=== PATIENT | male | born 1930 | race Caucasian/White ===

== ENCOUNTER 2016-05-21 22:47 | Inpatient (IN) | payer MEDICARE, MEDICAID ==
[2016-05-21 22:47] VITALS: PULSE 58; BMI 23.6
[2016-05-21] MEDS ORDERED: Sodium Chloride 0.9% 2,000 ML IV ONE (23:29)
--- NOTE | 2016-05-21 23:42 | C.PDOC ---
History Of Present Illness Patient is an 85 year old male who presents to the ER with a possible GI bleed. Patient's family states they found red stool and dismissed it as a result of drinking beet juice, fci then found him weak, tachycardic, hypotensive , and pale. The patient's family reports he was admitted to the hospital last month for pneumonia. Denies any nausea, vomiting, or diarrhea. Time Seen by Provider: 05/21/16 23:29 Chief Complaint (Nursing): GI Problem History Per: Family History/Exam Limitations: no limitations Onset/Duration Of Symptoms: Hrs Current Symptoms Are (Timing): Still Present Associated Symptoms: Melena Past Medical History Reviewed: Historical Data, Nursing Documentation, Vital Signs Vital Signs: Last Vital Signs Temp 99.7 F H 05/21/16 23:54 Pulse 130 H 05/21/16 23:05 Resp 24 05/21/16 23:05 BP 75/36 L 05/21/16 23:05 Pulse Ox 99 05/22/16 00:36 - Medical History PMH: Anemia, Benign Prostatic Hyperplasia, CAD, Cardia Arrhythmia, CHF, HTN, Hypercholesterolemia, Peripheral Edema, Pneumonia, Chronic Kidney Disease Surgical History: Appendectomy, CABG - [facility] Procedures INSPECTION OF UPPER INTESTINAL TRACT, ENDO (04/11/15) TRANSFUSE NONAUT RED BLOOD CELLS IN PERIPH VEIN, PERC (04/11/15) Family History: States: Unknown Family Hx - Social History Hx Tobacco Use: No Hx Alcohol Use: No Hx Substance Use: No - Immunization History Hx Tetanus Toxoid Vaccination: Yes Hx Influenza Vaccination: Yes Hx Pneumococcal Vaccination: Yes Review Of Systems Except As Marked, All Systems Reviewed And Found Negative. Constitutional: Negative for: Fever, Chills Cardiovascular: Positive for: Other (Tachycardic) Respiratory: Positive for: Cough Gastrointestinal: Positive for: Abdominal Pain, Melena. Negative for: Nausea, Vomiting, Diarrhea Physical Exam - Physical Exam Appears: Non-toxic Skin: Dry, Pale Eye(s): bilateral: Conjunctiva Pale, Other (Sunken eyes) Tongue: Other (Dry) Cardiovascular: Other (Tachycardiac) Respiratory: Rhonchi (Course bilaterally), Other (Cough) Gastrointestinal/Abdominal: Soft, Tenderness (diffuse), No Distention, No Guarding, No Rebound Rectal: Heme Positive, Melena (Jelly like texture) Extremity: Normal ROM, No Tenderness Neurological/Psych: Oriented x3, Normal Speech, Normal Cognition ED Course And Treatment - Laboratory Results Result Diagrams: 05/21/16 23:55 05/21/16 23:55 Lab Interpretation: Abnormal (WBC 15.6 with left shift. K+ 5.8, Lactate 2.7, stool guaiac +) ECG: Interpreted By Me ECG Rhythm: Sinus Tachycardia, R BBB ECG Interpretation: Abnormal O2 Sat by Pulse Oximetry: 99 Pulse Ox Interpretation: Normal - Radiology CXR: Interpreted by Me CXR Interpretation: Yes: Infiltrates (bilateral similar to CXR from last month) Progress Note: Blood work, EKG, chest x-ray, urine culture, urinalysis, and blood culture. IV fluids were administered. Reevaluation Time: 00:44 Reassessment Condition: Improved (BP now 106/54, HR 90) - Physician Consult Information Outcome Of Conversation: Case discussed with Dr Rigoberto Choi. Patient to be admitted to ICU for GI bleed with hypotension. Disposition - Disposition Disposition: HOSPITALIZED Disposition Time: 00:46 Condition: GUARDED - POA Present On Arrival: None - Clinical Impression Clinical Impression: Gastrointestinal hemorrhage, Hypovolemic shock - Scribe Statement The provider has reviewed the documentation as recorded by the Scribe Jac Okeefe All medical record entries made by the Scribe were at my direction and personally dictated by me. I have reviewed the chart and agree that the record accurately reflects my personal performance of the history, physical exam, medical decision making, and the department course for this patient. I have also personally directed, reviewed, and agree with the discharge instructions and disposition.
[2016-05-21 23:50] LABS: VENOUS BLOOD GAS PCO2 42 mmHg (40-60); VENOUS BLOOD PH 7.34 (7.32-7.43)
[2016-05-22 00:05] LABS: BASO % 0.1 % (0.0-2.0); EOS % 0.1 % (0.0-4.0); HEMATOCRIT 28.2 % (35.0-51.0); LYMPH # 0.9 K/uL (1.0-4.3); LYMPH % 5.6 % (20.0-40.0); MEAN CELL VOLUME 82.6 fL (80.0-94.0); MEAN CORPUSCULAR HEMOGLOBIN 26.2 pg (27.0-31.0); MEAN CORPUSCULAR HGB CONC 31.7 g/dL (33.0-37.0); MEAN PLATELET VOLUME 9.3 fL (7.2-11.7); MONO # 0.7 K/uL (0.0-0.8); MONO % 4.7 % (0.0-10.0); PLATELET COUNT 207 K/uL (130-400); RED CELL DISTRIBUTION WIDTH 18.4 % (11.5-14.5); WHITE BLOOD COUNT 15.6 K/uL (4.8-10.8)
[2016-05-22 00:18] LABS: POTASSIUM 5.8 mmol/L (3.6-5.2)
[2016-05-22 00:20] LABS: BILIRUBIN,TOTAL 0.4 mg/dL (0.2-1.3)
[2016-05-22 00:21] LABS: ALB/GLOB RATIO 0.8 (1.0-2.1); CALCIUM 8.6 mg/dl (8.6-10.4); MAGNESIUM 2.6 mg/dL (1.6-2.3); PHOSPHOROUS 4.8 mg/dL (2.5-4.5); TOTAL PROTEIN 5.9 g/dL (6.3-8.3)
[2016-05-22] MEDS ORDERED: Sodium Chloride 0.9% 1,000 ML IV ONE (00:30)
[2016-05-22 00:33] LABS: TROPONIN I 0.059 ng/mL (0.00-0.120)
--- NOTE | 2016-05-22 02:56 | CP.PCM.CON ---
History of Present Illness - History of Present Illness History of Present Illness: Chief complaint: GA bleed History present illness: 85-year-old male with history of hypertension CAD, status post coronary artery bypass grafting BPH anemia hypertension hypercholesterolemia peripheral edema chronic renal insufficiency peripheral vascular disease sent from senior care because of the increasing weakness lethargic tachypnea and hypotension. Patient was also found to have a pain looking mucosa and tiredness, extremely weak and associated with the sacral decubiti Past medical history as noted in the chart. Surgical history coronary artery disease surgery endoscopy Family history noncontributory Allergies: No known drug allergy Personal history: Used to be a smoker in the past currently none Review of system noted from the chart and examination: Vital signs reviewed Currently in the emergency room patient was having hypotension, but the after receiving IV fluids the blood pressure is improving Chest good air entry bilaterally regular heart sound nontender abdomen, extremities edema noted bilaterally [employer] alert awake oriented. Patient is having stage II sacral decubiti Patient's labs reviewed in Elevated BUN/creatinine noted. Also low hemoglobin noted, related proBNP noted Chest x-ray mild congestive changes noted Stool occult blood is positive currently Assessment and recommendation: 85-year-old male with multiple medical problems, chronic hypertension chronic a diabetic complication, coronary artery disease admitted with the hypotension, tachycardia and hypoxia. Currently improving with IV fluids. We'll monitor the H&H, patient may need a blood transfusion. Overall prognosis is poor will follow the patient Past Patient History - Tetanus Immunizations Tetanus Immunization: Unknown - Past Medical History & Family History Past Medical History?: Yes - Past Social History Smoking Status: Never Smoked - CARDIAC Hx Cardiac Disorders: Yes Hx Cardia Arrhythmia: Yes Hx Congestive Heart Failure: Yes Hx Hypercholesterolemia: Yes Hx Hypertension: Yes Hx Peripheral Edema: Yes - PULMONARY Hx Respiratory Disorders: Yes Hx Pneumonia: Yes - NEUROLOGICAL Hx Neurological Disorder: Yes HX Cerebrovascular Accident: Yes - HEENT Hx HEENT Problems: Yes Hx Glaucoma: Yes - RENAL Hx Chronic Kidney Disease: Yes Other/Comment: ckd - ENDOCRINE/METABOLIC Hx Endocrine Disorders: Yes Hx Diabetes Mellitus Type 2: Yes - HEMATOLOGICAL/ONCOLOGICAL Hx Blood Disorders: Yes Hx Anemia: Yes - INTEGUMENTARY Hx Dermatological Problems: No - MUSCULOSKELETAL/RHEUMATOLOGICAL Hx Musculoskeletal Disorders: Yes Hx Falls: Yes - GASTROINTESTINAL Hx Gastrointestinal Disorders: No - GENITOURINARY/GYNECOLOGICAL Hx Genitourinary Disorders: No - PSYCHIATRIC Hx Psychophysiologic Disorder: No Hx Substance Use: No - SURGICAL HISTORY Hx Surgeries: Yes Hx Appendectomy: Yes (2014) Hx Coronary Artery Bypass Graft: Yes (2012) - ANESTHESIA Hx Anesthesia: Yes Hx Anesthesia Reactions: No Hx Malignant Hyperthermia: No Has any member of the family had a problem w/ anesthesia?: No Meds Allergies/Adverse Reactions: Allergies Allergy/AdvReac Type Severity Reaction Status Date / Time No Known Allergies Allergy Unverified 05/21/16 23:21 - Medications Medications: Current Medications Folic Acid (Folic Acid) 1 mg PO DAILY [facility] Home Med (Brinzolamide/Brimonidine Tart [Simbrinza 1%-0.2% Eye Drops]) 1 drop OP BID [facility] Home Med (Travoprost [Travatan Z]) 1 drop OP HS [facility] Sodium Chloride (Sodium Chloride 0.9%) 1,000 mls @ 100 mls/hr IV .Q10H [facility] Pantoprazole Sodium (Protonix Inj) 40 mg IVP Q12H [facility] Tamsulosin HCl (Flomax) 0.4 mg PO DAILY [facility] Results - Vital Signs Recent Vital Signs: Last Vital Signs Temp 98 F 05/22/16 02:51 Pulse 91 H 05/22/16 01:46 Resp 18 05/22/16 01:46 BP 114/68 05/22/16 01:46 Pulse Ox 99 05/22/16 01:46 - Labs Result Diagrams: 05/21/16 23:55 05/21/16 23:55 Labs: Laboratory Results - last 24 hr 05/22/16 01:46 POC Glucose (mg/dL) 398 H
[2016-05-22] MEDS ORDERED: Sodium Chloride 0.9% 1,000 ML IV SCH (03:00)
[2016-05-22 05:16] LABS: HEMATOCRIT 24.9 % (35.0-51.0); MEAN CELL VOLUME 83.5 fL (80.0-94.0); MEAN CORPUSCULAR HEMOGLOBIN 26.3 pg (27.0-31.0); MEAN CORPUSCULAR HGB CONC 31.5 g/dL (33.0-37.0); MEAN PLATELET VOLUME 8.7 fL (7.2-11.7); WHITE BLOOD COUNT 15.7 K/uL (4.8-10.8)
[2016-05-22 05:21] LABS: POTASSIUM 4.7 mmol/L (3.6-5.2)
[2016-05-22 05:23] LABS: ALB/GLOB RATIO 0.7 (1.0-2.1); BILIRUBIN,TOTAL 0.2 mg/dL (0.2-1.3); CALCIUM 7.8 mg/dl (8.6-10.4); PHOSPHOROUS 4.2 mg/dL (2.5-4.5); TOTAL PROTEIN 5.1 g/dL (6.3-8.3)
[2016-05-22 05:24] LABS: MAGNESIUM 2.3 mg/dL (1.6-2.3)
[2016-05-22 06:39] LABS: RBC URINE < 1 /hpf (0-3); URINE BACTERIA RARE (<OCC); URINE BILIRUBIN NEGATIVE (NEGATIVE); URINE BLOOD NEGATIVE (NEGATIVE); URINE COLOR Yellow (YELLOW); URINE GLUCOSE (UA) 2+ mg/dL (Normal); URINE KETONE NEGATIVE (NEGATIVE); URINE LEUKOCYTE ESTERASE TRACE Leu/uL (Negative); URINE PROTEIN NEGATIVE (NEGATIVE); URINE UROBILINOGEN NORMAL mg/dL (0.2-1.0); WBC URINE 1 /hpf (0-5)
--- NOTE | 2016-05-22 08:29 | RAD ---
HISTORY: Sepsis Patient COMPARISON: 04/27/2016 FINDINGS: LUNGS: Now more shallow lung volumes present. Bronchovascular marking/interstitial lung marking prominence similar to perhaps slightly decreased. No consolidation appreciated. PLEURA: No significant pleural effusion identified, no pneumothorax apparent. CARDIOVASCULAR: Mild cardiomegaly -left ventricular enlargement configuration. OSSEOUS STRUCTURES: No significant abnormalities. VISUALIZED UPPER ABDOMEN: Normal. OTHER FINDINGS: Sternotomy wires and coronary artery bypass clips noted IMPRESSION: No interval pathology suggested.
[2016-05-22 08:31] LABS: NEUTROPHIL 91 % (50-75); TOTAL CELLS COUNTED 100
[2016-05-22] MEDS ORDERED: (Novolog) Insulin Aspart, Recombinant 100 u/ml 10 ml vial SC SCH (10:15)
[2016-05-22] MEDS: Nystatin 100,000 Units/gm Cream(15 gm) TOP SCH ×3 (12:29→17:48)
[2016-05-22] MEDS: (Novolog) Insulin Aspart, Recombinant 100 u/ml 10 ml vial SC SCH ×2 (12:55→18:12)
[2016-05-22] MEDS: Brimonidine 0.2% Opth Sol (5ml) OU SCH ×2 (14:16→17:49)
[2016-05-22] MEDS: Dorzolamide 2% Opht Sol 10ml OU SCH ×2 (14:17→17:48)
--- NOTE | 2016-05-22 15:52 | CP.PCM.CON ---
<Denae Chakraborty - Last Filed: 05/22/16 19:10> History of Present Illness - History of Present Illness History of Present Illness: Gastroenterology Fellow/PGY4 Consult Note 85 year old male with history of Anemia requiring transfusion 04/2015, [place] complicated by CAD s/p 3 vessel CABG 2012 previously on Plavix prior to admission 04/2016, moderate aortic stenosis,, ischemic cardiomyopathy 35-40%, Hypertension, Hyperlipidemia presenting with weakness. Recent discharge to rehabilitation center 04/30/16 after treatment of pneumonia. Patient and family endorsed weakness since hospitalization that has not improved. Rehab facility noted blood in stool leading to ER presentation. Acute treatment of acute anemia , FOBT positive, and hypotension. Currently, receiving two units pRBC transfusion. Patient denies abdominal pain, shortness of breath, chest pain, confusion, diarrhea, constipation, or weight loss. He is unsure of blood in the stool due to weakness and active assistance with daily hygiene and toilet habits. Prior EGD and colonoscopy 04/2015 showed gastric AVM, normal colon, and internal hemorrhoids. Family-denies Colon cancer Social-denies tobacco, alcohol, illicit drug use Surgery- CABG 2012 Review of Systems - Review of Systems Review of Systems: A 12-point review of systems negative except for as above Past Patient History - Tetanus Immunizations Tetanus Immunization: Unknown - Past Medical History & Family History Past Medical History?: Yes - Past Social History Smoking Status: Never Smoked - CARDIAC Hx Cardiac Disorders: Yes Hx Cardia Arrhythmia: Yes Hx Congestive Heart Failure: Yes Hx Hypercholesterolemia: Yes Hx Hypertension: Yes Hx Peripheral Edema: Yes - PULMONARY Hx Respiratory Disorders: Yes Hx Pneumonia: Yes - NEUROLOGICAL Hx Neurological Disorder: Yes HX Cerebrovascular Accident: Yes - HEENT Hx HEENT Problems: Yes Hx Glaucoma: Yes - RENAL Hx Chronic Kidney Disease: Yes Other/Comment: ckd - ENDOCRINE/METABOLIC Hx Endocrine Disorders: Yes Hx Diabetes Mellitus Type 2: Yes - HEMATOLOGICAL/ONCOLOGICAL Hx Blood Disorders: Yes Hx Anemia: Yes - INTEGUMENTARY Hx Dermatological Problems: No - MUSCULOSKELETAL/RHEUMATOLOGICAL Hx Musculoskeletal Disorders: Yes Hx Falls: Yes - GASTROINTESTINAL Hx Gastrointestinal Disorders: No - GENITOURINARY/GYNECOLOGICAL Hx Genitourinary Disorders: No - PSYCHIATRIC Hx Psychophysiologic Disorder: No Hx Substance Use: No - SURGICAL HISTORY Hx Surgeries: Yes Hx Appendectomy: Yes (2014) Hx Coronary Artery Bypass Graft: Yes (2012) - ANESTHESIA Hx Anesthesia: Yes Hx Anesthesia Reactions: No Hx Malignant Hyperthermia: No Has any member of the family had a problem w/ anesthesia?: No Meds Allergies/Adverse Reactions: Allergies Allergy/AdvReac Type Severity Reaction Status Date / Time No Known Allergies Allergy Unverified 05/21/16 23:21 - Medications Medications: Current Medications Brimonidine Tartrate (Alphagan 0.2% Opht) 0 ml OU TID [facility] Last Admin: 05/22/16 14:16 Dose: 1 applic Dorzolamide HCl (Trusopt) 0 ml OU TID [facility] Last Admin: 05/22/16 14:17 Dose: 1 drop Folic Acid 1 mg/ Sodium (Chloride) 100.2 mls @ 60 mls/hr IV DAILY [facility] Sodium Chloride (Sodium Chloride 0.9%) 1,000 mls @ 100 mls/hr IV .Q10H [facility] Insulin Aspart (Novolog) 0 unit SC Q6 [facility] PRN Reason: Protocol Last Admin: 05/22/16 12:55 Dose: 4 unit Latanoprost (Xalatan Opht) 0 ml OU HS [facility] Nystatin (Mycostatin Cream) 0 ea TOP TID [facility] Last Admin: 05/22/16 14:17 Dose: 1 applic Pantoprazole Sodium (Protonix Inj) 40 mg IVP Q12H [facility] Last Admin: 05/22/16 03:24 Dose: 40 mg Tamsulosin HCl (Flomax) 0.4 mg PO DAILY [facility] Physical Exam - Constitutional Appears: Chronically Ill, Other - Head Exam Head Exam: ATRAUMATIC, NORMOCEPHALIC - Eye Exam Eye Exam: EOMI, PERRL Pupil Exam: PERRL. absent: Miosis, Mydriatic - ENT Exam ENT Exam: Mucous Membranes Moist, Normal Oropharynx - Neck Exam Neck exam: Positive for: Full Rom, Normal Inspection - Respiratory Exam Respiratory Exam: Clear to Auscultation Bilateral. absent: Rales, Rhonchi, Wheezes - Cardiovascular Exam Cardiovascular Exam: RRR, +S1, +S2, Systolic Murmur. absent: Gallop - GI/Abdominal Exam GI & Abdominal Exam: Normal Bowel Sounds, Soft. absent: Distended, Firm, Guarding, Mass, Organomegaly, Rebound, Rigid, Tenderness - Rectal Exam Additional comments: brown stool with blood specks mixed in - Extremities Exam Extremities exam: Positive for: full ROM. Negative for: pedal edema - Neurological Exam Neurological exam: Alert - Psychiatric Exam Psychiatric exam: Normal Affect, Normal Mood - Skin Skin Exam: Dry, Intact, Pallor, Warm Additional comments: sacral decubitus ulcer, and raw skin of scrotum Results - Vital Signs Recent Vital Signs: Last Vital Signs Temp 96 F L 05/22/16 15:00 Pulse 72 05/22/16 15:00 Resp 18 05/22/16 15:00 BP 108/52 L 05/22/16 15:00 Pulse Ox 95 05/22/16 12:13 - Labs Result Diagrams: 05/22/16 05:00 05/22/16 05:00 Labs: Laboratory Results - last 24 hr 05/22/16 05/22/16 05/22/16 01:46 05:00 06:33 WBC 15.7 H RBC 2.98 L Hgb 7.8 L Hct 24.9 L MCV 83.5 MCH 26.3 L MCHC 31.5 L RDW 18.0 H Plt Count 174 MPV 8.7 Sodium 136 Potassium 4.7 Chloride 100 Carbon Dioxide 25 Anion Gap 16 BUN 114 H* Creatinine 2.2 H Est GFR ( Amer) 35 Est GFR (Non-Af Amer) 29 POC Glucose (mg/dL) 398 H Random Glucose 281 H Lactic Acid Calcium 7.8 L Phosphorus 4.2 Magnesium 2.3 Total Bilirubin 0.2 AST 14 L D ALT 39 Alkaline Phosphatase 69 Total Protein 5.1 L Albumin 2.2 L Globulin 2.9 Albumin/Globulin Ratio 0.7 L Urine Color Yellow Urine Clarity Clear Urine pH 6.0 Ur Specific [place] 1.012 Urine Protein Negative Urine Glucose (UA) 2+ H Urine Ketones Negative Urine Blood Negative Urine Nitrate Negative Urine Bilirubin Negative Urine Urobilinogen Normal Ur Leukocyte Esterase Trace Urine WBC (Auto) 1 Urine RBC (Auto) < 1 Ur Squamous Epith Cells 2 Urine Bacteria Rare 05/22/16 05/22/16 05/22/16 07:26 09:22 11:45 WBC RBC Hgb Hct MCV MCH MCHC RDW Plt Count MPV Sodium Potassium Chloride Carbon Dioxide Anion Gap BUN Creatinine Est GFR ( Amer) Est GFR (Non-Af Amer) POC Glucose (mg/dL) 253 H 310 H Random Glucose Lactic Acid 1.6 Calcium Phosphorus Magnesium Total Bilirubin AST ALT Alkaline Phosphatase Total Protein Albumin Globulin Albumin/Globulin Ratio Urine Color Urine Clarity Urine pH Ur Specific [place] Urine Protein Urine Glucose (UA) Urine Ketones Urine Blood Urine Nitrate Urine Bilirubin Urine Urobilinogen Ur Leukocyte Esterase Urine WBC (Auto) Urine RBC (Auto) Ur Squamous Epith Cells Urine Bacteria Assessment & Plan - Assessment and Plan (Free Text) Assessment: 85 year old male with history of Anemia requiring transfusion 04/2015 on scheduled outpatient Iron infusions with Dr. Jcakson, [place] complicated by CAD s/p 3 vessel CABG 2012 previously on Plavix prior to admission 04/2016, moderate aortic stenosis, ischemic cardiomyopathy 35-40%, CKD Stage 3, Hypertension, Hyperlipidemia presenting with weakness and blood in stool. Recent discharge for pneumonia to rehabilitation center 04/30/16. Acute treatment of acute anemia , FOBT positive, and hypotension. Prior EGD and colonoscopy 04/2015 showed gastric AVM, normal colon, and internal hemorrhoids. Acute on chronic normocytic anemia Hypotension Plan: >2 units pRBCs transfusion >monitor H/H >PPI IV BID >discussed endoscopic evaluation with patient and family >noted prior EGD and colonoscopy 04/2015 with plan for capsule endoscopy if anemia persisted >continue volume resuscitation and re-assess hemodynamic status in the morning >ensure cardiopulmonary status is stable to undergo procedure >tentative endoscopic evaluation tomorrow morning given acute anemia requiring transfusion, hypotension, and blood in stool on rectal exam >NPO after midnight in preparation for push enteroscopy <Jesse Davenport - Last Filed: 05/22/16 20:14> Meds - Medications Medications: Current Medications Brimonidine Tartrate (Alphagan 0.2% Opht) 0 ml OU TID [facility] Last Admin: 05/22/16 17:49 Dose: 1 drop Dorzolamide HCl (Trusopt) 0 ml OU TID [facility] Last Admin: 05/22/16 17:48 Dose: 1 drop Guaifenesin (Mucinex La) 600 mg PO BID [facility] Last Admin: 05/22/16 18:11 Dose: Not Given Folic Acid 1 mg/ Sodium (Chloride) 100.2 mls @ 60 mls/hr IV DAILY [facility] Last Admin: 05/22/16 16:42 Dose: 60 mls/hr Sodium Chloride (Sodium Chloride 0.9%) 1,000 mls @ 100 mls/hr IV .Q10H [facility] Last Admin: 05/22/16 19:35 Dose: Not Given Insulin Aspart (Novolog) 0 unit SC Q6 [facility] PRN Reason: Protocol Last Admin: 05/22/16 18:12 Dose: Not Given Latanoprost (Xalatan Opht) 0 ml OU HS [facility] Nystatin (Mycostatin Cream) 0 ea TOP TID [facility] Last Admin: 05/22/16 17:48 Dose: 1 applic Pantoprazole Sodium (Protonix Inj) 40 mg IVP Q12H [facility] Last Admin: 05/22/16 16:13 Dose: 40 mg Tamsulosin HCl (Flomax) 0.4 mg PO DAILY [facility] Last Admin: 05/22/16 16:11 Dose: Not Given Results - Vital Signs Recent Vital Signs: Last Vital Signs Temp 96.4 F L 05/22/16 19:30 Pulse 65 05/22/16 19:34 Resp 13 05/22/16 19:34 BP 110/59 L 05/22/16 19:34 Pulse Ox 99 05/22/16 19:34 - Labs Result Diagrams: 05/22/16 05:00 05/22/16 05:00 Labs: Laboratory Results - last 24 hr 05/22/16 05/22/16 05/22/16 01:46 05:00 06:33 WBC 15.7 H RBC 2.98 L Hgb 7.8 L Hct 24.9 L MCV 83.5 MCH 26.3 L MCHC 31.5 L RDW 18.0 H Plt Count 174 MPV 8.7 Sodium 136 Potassium 4.7 Chloride 100 Carbon Dioxide 25 Anion Gap 16 BUN 114 H* Creatinine 2.2 H Est GFR ( Amer) 35 Est GFR (Non-Af Amer) 29 POC Glucose (mg/dL) 398 H Random Glucose 281 H Lactic Acid Calcium 7.8 L Phosphorus 4.2 Magnesium 2.3 Total Bilirubin 0.2 AST 14 L D ALT 39 Alkaline Phosphatase 69 Total Protein 5.1 L Albumin 2.2 L Globulin 2.9 Albumin/Globulin Ratio 0.7 L Urine Color Yellow Urine Clarity Clear Urine pH 6.0 Ur Specific [place] 1.012 Urine Protein Negative Urine Glucose (UA) 2+ H Urine Ketones Negative Urine Blood Negative Urine Nitrate Negative Urine Bilirubin Negative Urine Urobilinogen Normal Ur Leukocyte Esterase Trace Urine WBC (Auto) 1 Urine RBC (Auto) < 1 Ur Squamous Epith Cells 2 Urine Bacteria Rare 05/22/16 05/22/16 05/22/16 07:26 09:22 11:45 WBC RBC Hgb Hct MCV MCH MCHC RDW Plt Count MPV Sodium Potassium Chloride Carbon Dioxide Anion Gap BUN Creatinine Est GFR ( Amer) Est GFR (Non-Af Amer) POC Glucose (mg/dL) 253 H 310 H Random Glucose Lactic Acid 1.6 Calcium Phosphorus Magnesium Total Bilirubin AST ALT Alkaline Phosphatase Total Protein Albumin Globulin Albumin/Globulin Ratio Urine Color Urine Clarity Urine pH Ur Specific [place] Urine Protein Urine Glucose (UA) Urine Ketones Urine Blood Urine Nitrate Urine Bilirubin Urine Urobilinogen Ur Leukocyte Esterase Urine WBC (Auto) Urine RBC (Auto) Ur Squamous Epith Cells Urine Bacteria Attending/Attestation - Attestation I have personally seen and examined this patient.: Yes I have fully participated in the care of the patient.: Yes I have reviewed all pertinent clinical information: Yes Notes (Text): 05/22/16 20:05 I have seen and examined patient with GI fellow. Agree with above documentation with the following additions. In brief, this is an 85 year old male with history of CAD/CABG, ischemic cardiomyopathy, aortic stenosis, HTN, hyperlipidemia, chronic iron deficiency anemia who presents to hospital from rehab facility with complaint of progressive lethargy and dark stools. He was recently diagnosed with pneumonia and undergoing recovery, though for past one week he has become progressively weak and has developed lightheadedness. According to reports from rehab facility, there was mention of fresh blood in stool, though patient only endorses dark color. He denies dyspnea, abdominal pain, nausea, vomiting, fever/chills, or weight loss. On arrival to hospital he was noted to be hypotensive and anemic and was sent to intensive care unit. He had an EGD/colonoscopy in April 2015 which showed internal hemorrhoids, surgical anastomosis, gastric AVM s/p therapy. CAD/CABG Iron deficiency anemia CKD Ischemic cardiomyopathy / aortic stenosis Progressive weakness in setting of blood in stool/worsening anemia - currently hypotensive in ICU, posing threat to patient life - Currently receiving 2 units PRBC transfusion, monitor H/H - Continue with PPI therapy - Suggest cardiology evaluation given underlying disease - Given hypotension along with suspicion for GI bleeding, patient will require urgent endoscopic evaluation. Will plan for push enteroscopy tomorrow AM following volume resuscitation since prior EGD revealed gastric AVM. - NPO after midnight - Following medical optimization and resolution of acute issues, patient would also benefit from outpatient capsule endoscopy for evaluation of potential small bowel bleeding source
--- NOTE | 2016-05-22 16:05 | CARD ---
APPROVED REPORT EKG Measurement Heart [id number] <Conclusion> Poor data quality, interpretation may be adversely affected Normal sinus rhythm Right bundle branch block Septal infarct, age undetermined Abnormal ECG
--- NOTE | 2016-05-22 16:49 | CP.PCM.PN ---
Subjective - Date & Time of Evaluation Date of Evaluation: 05/22/16 Time of Evaluation: 12:00 - Subjective Subjective: clinically same Objective - Vital Signs/Intake and Output Vital Signs (last 24 hours): Temp Pulse Resp BP Pulse Ox 96.4 F L 69 18 96/54 L 95 05/22/16 16:00 05/22/16 16:00 05/22/16 16:00 05/22/16 16:00 05/22/16 12:13 Intake and Output: 05/22/16 05/22/16 06:59 18:59 Intake Total 850 540 Output Total 250 50 Balance 600 490 - Medications Medications: Current Medications Brimonidine Tartrate (Alphagan 0.2% Opht) 0 ml OU TID [facility] Last Admin: 05/22/16 14:16 Dose: 1 applic Dorzolamide HCl (Trusopt) 0 ml OU TID LASHA Last Admin: 05/22/16 14:17 Dose: 1 drop Folic Acid 1 mg/ Sodium (Chloride) 100.2 mls @ 60 mls/hr IV DAILY [facility] Last Admin: 05/22/16 16:42 Dose: 60 mls/hr Sodium Chloride (Sodium Chloride 0.9%) 1,000 mls @ 100 mls/hr IV .Q10H [facility] Insulin Aspart (Novolog) 0 unit SC Q6 [facility] PRN Reason: Protocol Last Admin: 05/22/16 12:55 Dose: 4 unit Latanoprost (Xalatan Opht) 0 ml OU HS [facility] Nystatin (Mycostatin Cream) 0 ea TOP TID [facility] Last Admin: 05/22/16 14:17 Dose: 1 applic Pantoprazole Sodium (Protonix Inj) 40 mg IVP Q12H [facility] Last Admin: 05/22/16 16:13 Dose: 40 mg Tamsulosin HCl (Flomax) 0.4 mg PO DAILY [facility] Last Admin: 05/22/16 16:11 Dose: Not Given - Labs Labs: 05/22/16 05:00 05/22/16 05:00 PT 11.0 SECONDS (9.7-12.2) 05/21/16 23:55 INR 1.0 05/21/16 23:55 APTT 25 SECONDS (21-34) 05/21/16 23:55 - Constitutional Appears: Well - Head Exam Head Exam: ATRAUMATIC, NORMAL INSPECTION, NORMOCEPHALIC - Eye Exam Eye Exam: EOMI, Normal appearance, PERRL Pupil Exam: NORMAL ACCOMODATION, PERRL - ENT Exam ENT Exam: Mucous Membranes Moist, Normal Exam - Neck Exam Neck Exam: Full ROM, Normal Inspection. absent: Lymphadenopathy - Respiratory Exam Respiratory Exam: Decreased Breath Sounds - Cardiovascular Exam Cardiovascular Exam: REGULAR RHYTHM, +S1, +S2 - GI/Abdominal Exam GI & Abdominal Exam: Soft, Diminished Bowel Sounds - Rectal Exam Rectal Exam: Deferred Assessment and Plan (1) Acute renal failure Status: Acute (2) Anemia Status: Acute (3) BPH (benign prostatic hyperplasia) Status: Acute (4) Bilateral edema of lower extremity Status: Acute (5) DVT prophylaxis Status: Acute (6) Dry gangrene Status: Acute (7) Gastrointestinal hemorrhage Status: Acute (8) Hypochromic microcytic anemia Status: Acute (9) Hypovolemic shock Status: Acute (10) Memory difficulty Status: Acute (11) Paresthesia of both lower extremities Status: Acute (12) Pneumonia Status: Acute (13) CHF (congestive heart failure) Status: Chronic (14) Diabetes mellitus Status: Chronic - Assessment and Plan (Free Text) Plan: consult GI Consult Heme/onc IV NS Folic acid Protonix Novolog follow up with labs
[2016-05-22] MEDS: guaiFENesin 600 mg ER Tab PO SCH (18:11)
[2016-05-22] MEDS: Sodium Chloride 0.9% 1,000 ML IV SCH ×2 (19:35→21:00)
--- NOTE | 2016-05-22 19:36 | CP.PCM.PN ---
Subjective - Date & Time of Evaluation Date of Evaluation: 05/22/16 Time of Evaluation: 10:00 - Subjective Subjective: Dr. Choi service note: Patient seen and evaluated in room. Unable to obtain history from patient due to language barrier despite using attorney. Objective - Vital Signs/Intake and Output Vital Signs (last 24 hours): Temp Pulse Resp BP Pulse Ox 96.4 F L 64 11 L 110/59 L 95 05/22/16 19:30 05/22/16 19:30 05/22/16 19:30 05/22/16 19:30 05/22/16 12:13 Intake and Output: 05/22/16 05/23/16 18:59 06:59 Intake Total 810 Output Total 50 Balance 760 - Medications Medications: Current Medications Brimonidine Tartrate (Alphagan 0.2% Opht) 0 ml OU TID LASHA Last Admin: 05/22/16 17:49 Dose: 1 drop Dorzolamide HCl (Trusopt) 0 ml OU TID [facility] Last Admin: 05/22/16 17:48 Dose: 1 drop Guaifenesin (Mucinex La) 600 mg PO BID [facility] Last Admin: 05/22/16 18:11 Dose: Not Given Folic Acid 1 mg/ Sodium (Chloride) 100.2 mls @ 60 mls/hr IV DAILY [facility] Last Admin: 05/22/16 16:42 Dose: 60 mls/hr Sodium Chloride (Sodium Chloride 0.9%) 1,000 mls @ 100 mls/hr IV .Q10H [facility] Insulin Aspart (Novolog) 0 unit SC Q6 [facility] PRN Reason: Protocol Last Admin: 05/22/16 18:12 Dose: Not Given Latanoprost (Xalatan Opht) 0 ml OU HS [facility] Nystatin (Mycostatin Cream) 0 ea TOP TID [facility] Last Admin: 05/22/16 17:48 Dose: 1 applic Pantoprazole Sodium (Protonix Inj) 40 mg IVP Q12H [facility] Last Admin: 05/22/16 16:13 Dose: 40 mg Tamsulosin HCl (Flomax) 0.4 mg PO DAILY [facility] Last Admin: 05/22/16 16:11 Dose: Not Given - Labs Labs: 05/22/16 05:00 05/22/16 05:00 PT 11.0 SECONDS (9.7-12.2) 05/21/16 23:55 INR 1.0 05/21/16 23:55 APTT 25 SECONDS (21-34) 05/21/16 23:55 - Constitutional Appears: Non-toxic, No Acute Distress - Head Exam Head Exam: NORMOCEPHALIC - Eye Exam Eye Exam: Normal appearance, PERRL Pupil Exam: NORMAL ACCOMODATION - ENT Exam ENT Exam: Normal Exam - Respiratory Exam Respiratory Exam: Clear to Ausculation Bilateral. absent: Rales, Rhonchi, Wheezes - Cardiovascular Exam Cardiovascular Exam: REGULAR RHYTHM, RRR, +S2. absent: Gallop, Rubs - GI/Abdominal Exam GI & Abdominal Exam: Soft. absent: Tenderness - Extremities Exam Extremities Exam: absent: Calf Tenderness, Pedal Edema - Skin Skin Exam: Normal Color, Warm
[2016-05-22] MEDS: Latanoprost 2.5 ml Opht Soln OU SCH (21:04)
[2016-05-23] MEDS: (Novolog) Insulin Aspart, Recombinant 100 u/ml 10 ml vial SC SCH ×4 (00:44→18:43)
[2016-05-23] MEDS: Sodium Chloride 0.9% 1,000 ML IV SCH ×5 (00:44→21:14)
[2016-05-23 06:08] LABS: BASO % 0.2 % (0.0-2.0); EOS # 0.1 K/uL (0.0-0.7); EOS % 0.8 % (0.0-4.0); LYMPH # 0.6 K/uL (1.0-4.3); LYMPH % 4.8 % (20.0-40.0); MEAN CELL VOLUME 84.6 fL (80.0-94.0); MEAN CORPUSCULAR HGB CONC 31.9 g/dL (33.0-37.0); MEAN PLATELET VOLUME 8.5 fL (7.2-11.7); MONO # 0.7 K/uL (0.0-0.8); MONO % 5.7 % (0.0-10.0); NRBC % 0.1 % (0.0-2.0); PLATELET COUNT 177 K/uL (130-400); RED CELL DISTRIBUTION WIDTH 16.8 % (11.5-14.5); WHITE BLOOD COUNT 13.1 K/uL (4.8-10.8)
[2016-05-23 06:25] LABS: ALB/GLOB RATIO 0.8 (1.0-2.1); BILIRUBIN,TOTAL 0.5 mg/dL (0.2-1.3); TOTAL PROTEIN 4.7 g/dL (6.3-8.3)
[2016-05-23 06:26] LABS: CALCIUM 7.1 mg/dl (8.6-10.4); MAGNESIUM 2.2 mg/dL (1.6-2.3); PHOSPHOROUS 3.8 mg/dL (2.5-4.5)
[2016-05-23] MEDS ORDERED: Etomidate 20 mg/10ml Inj IV ONE ×2 (08:09→08:19)
[2016-05-23] MEDS ORDERED: Midazolam 2 MG/2 ML VIAL ONE (08:09)
[2016-05-23] MEDS ORDERED: Lactated Ringer's 500 ML IV ONE ×2 (08:13)
[2016-05-23 08:36] LABS: EOSINOPHIL 2 % (0-4); METAMYELOCYTE 1 % (0-0); NEUTROPHIL 73 % (50-75); TOTAL CELLS COUNTED 100
--- NOTE | 2016-05-23 08:41 | CP.CCUPN ---
Addendum entered and electronically signed by Supa Mclean DO 05/23/16 23 :06: UC positive for GNR- Abx on board as noted Cardio consulted with recommendations for Coreg BID which may help with PVCs, Ricardo inhib/arb, diovan for hypotension/ resume asa as GI sees fit,resume lasix as needed.- F/U Original Note: <Supa Mclean - Last Filed: 05/23/16 22:50> CCU Subjective - Physician Review Subjective (Free Text): 05/23/16 18:00 Patient seen at beside with no acute issues. Patient had upper GI endoscopy today. Patient a bit lethargic afterwards with recommendations made.for diet advancement to clears once with improved mental status. ROS could not be obtained at the time due to somnolence. CCU Objective - Vital Signs / Intake & Output Vital Signs (Last 4 hours): Vital Signs Temp Pulse Resp BP Pulse Ox 05/23/16 08:06 96.8 F L 79 12 99/62 L 100 05/23/16 08:00 96.8 F L 97 05/23/16 07:35 85 12 111/48 L 99 05/23/16 07:00 82 13 98 05/23/16 06:35 84 14 100/56 L 98 05/23/16 06:07 85 14 97 05/23/16 06:00 80 15 96 05/23/16 05:46 90 19 97 05/23/16 05:35 88 20 95/56 L 90 L 05/23/16 05:00 83 21 97 Intake and Output (Last 8hrs): Intake & Output 05/22/16 05/23/16 05/23/16 22:59 06:59 14:59 Intake Total 1320 800 200 Output Total 200 980 Balance 1120 800 -780 Weight 153 lb Intake: Intake, IV Amount 300 800 200 Left Antecubital 100 0 Right Wrist 200 800 200 Oral 0 Blood Product 1020 Apheresis Rbc Cp2d As3 Lr 325 1st Unit [id number] Apheresis Rbc Cp2d As3 Lr 195 1st Unit [id number] Output: Urine 200 980 Urine, Voided 200 980 Other: # Bowel Movements 0 - Physical Exam Physical Exam Limitations: Positive for: Altered Mental Status Head: Positive for: Atraumatic, Normocephalic Pupils: Positive for: PERRL Extroacular Muscles: Positive for: EOMI Conjunctiva: Positive for: Normal Mouth: Positive for: Moist Mucous Membranes Neck: Positive for: Normal Range of Motion Respiratory/Chest: Positive for: Clear to Auscultation, Good Air Exchange. Negative for: Wheezes Cardiovascular: Positive for: Normal S1, S2 Abdomen: Positive for: Normal Bowel Sounds. Negative for: Tenderness Back: Positive for: Normal Inspection Upper Extremity: Positive for: Normal Inspection Lower Extremity: Positive for: Normal Inspection Neurological: Positive for: CN II-XII Intact Skin: Positive for: Warm, Dry Psychiatric: Positive for: Lethargic - Medications Active Medications: Active Medications Generic Name Dose Route Start Last Admin Trade Name Freq PRN Reason Stop Dose Admin Brimonidine Tartrate 0 ml 05/22/16 14:00 05/22/16 17:49 Alphagan 0.2% Opht OU 1 drop TID [facility] Administration Dorzolamide HCl 0 ml 05/22/16 14:00 05/22/16 17:48 Trusopt OU 1 drop TID L[facility] Administration Guaifenesin 600 mg 05/22/16 18:00 05/22/16 18:11 Mucinex La PO Not Given BID LASHA Folic Acid 1 mg/ Sodium 100.2 mls @ 60 mls/hr 05/22/16 15:00 05/22/16 16:42 Chloride IV 60 mls/hr DAILY [facility] Administration Sodium Chloride 1,000 mls @ 100 mls/hr 05/22/16 14:45 05/23/16 06:05 Sodium Chloride 0.9% IV 100 mls/hr .Q10H [facility] Administration Insulin Aspart 0 unit 05/22/16 12:45 05/23/16 06:02 Novolog SC Not Given Q6 [facility] Protocol Latanoprost 0 ml 05/22/16 22:00 05/22/16 21:04 Xalatan Opht OU 2.5 ml HS [facility] Administration Nystatin 0 ea 05/22/16 10:15 05/22/16 17:48 Mycostatin Cream TOP 1 applic TID [facility] Administration Pantoprazole Sodium 40 mg 05/22/16 03:00 05/23/16 06:04 Protonix Inj IVP 40 mg Q12H [facility] Administration Tamsulosin HCl 0.4 mg 05/22/16 10:00 05/22/16 16:11 Flomax PO Not Given DAILY [facility] - Patient Studies Lab Studies: Lab Studies 05/23/16 05/23/16 05/23/16 Range/Units 05:59 05:54 00:42 WBC 13.1 H (4.8-10.8) K/uL RBC 3.18 L (4.40-5.90) Mil/uL Hgb 8.6 L (12.0-18.0) g/dL Hct 27.0 L (35.0-51.0) % MCV 84.6 (80.0-94.0) fL MCH 27.0 (27.0-31.0) pg MCHC 31.9 L (33.0-37.0) g/dL RDW 16.8 H (11.5-14.5) % Plt Count 177 (130-400) K/uL MPV 8.5 (7.2-11.7) fL Neut % (Auto) 88.5 H (50.0-75.0) % Lymph % (Auto) 4.8 L (20.0-40.0) % Coffee % (Auto) 5.7 (0.0-10.0) % Eos % (Auto) 0.8 (0.0-4.0) % Baso % (Auto) 0.2 (0.0-2.0) % Neut # 11.6 H (1.8-7.0) K/uL Lymph # 0.6 L (1.0-4.3) K/uL Coffee # 0.7 (0.0-0.8) K/uL Eos # 0.1 (0.0-0.7) K/uL Baso # 0.0 (0.0-0.2) K/uL Neutrophils % (Manual) 73 (50-75) % Band Neutrophils % 12 H* (0-2) % Lymphocytes % (Manual) 4 L (20-40) % Monocytes % (Manual) 8 (0-10) % Eosinophils % (Manual) 2 (0-4) % Metamyelocytes % 1 H (0-0) % Platelet Estimate Normal (NORMAL) Hypochromasia (manual) Slight Poikilocytosis (manual Slight Anisocytosis (manual) Slight Ovalocytes Slight PT 10.8 (9.7-12.2) SECONDS INR 1.0 APTT 25 (21-34) SECONDS Sodium 143 (132-148) mmol/L Potassium 4.0 (3.6-5.2) mmol/L Chloride 108 H (98-107) mmol/L Carbon Dioxide 24 (22-30) mmol/L Anion Gap 15 (10-20) BUN 93 H (9-20) mg/dL Creatinine 1.8 H (0.8-1.5) MG/DL Est GFR ( Amer) 44 Est GFR (Non-Af Amer) 36 POC Glucose (mg/dL) 153 H 226 H (65-110) mg/dL Random Glucose 151 H (75-110) mg/dL Lactic Acid (0.7-2.1) mmol/L Calcium 7.1 L (8.6-10.4) mg/dl Phosphorus 3.8 (2.5-4.5) mg/dL Magnesium 2.2 (1.6-2.3) mg/dL Total Bilirubin 0.5 (0.2-1.3) mg/dL AST 14 L (17-59) U/L ALT 27 (21-72) U/L Alkaline Phosphatase 60 (38-126) U/L Total Protein 4.7 L (6.3-8.3) g/dL Albumin 2.1 L (3.5-5.0) g/dL Globulin 2.6 (2.2-3.9) gm/dL Albumin/Globulin Ratio 0.8 L (1.0-2.1) 05/22/16 05/22/16 Range/Units 11:45 09:22 WBC (4.8-10.8) K/uL RBC (4.40-5.90) Mil/uL Hgb (12.0-18.0) g/dL Hct (35.0-51.0) % MCV (80.0-94.0) fL MCH (27.0-31.0) pg MCHC (33.0-37.0) g/dL RDW (11.5-14.5) % Plt Count (130-400) K/uL MPV (7.2-11.7) fL Neut % (Auto) (50.0-75.0) % Lymph % (Auto) (20.0-40.0) % Coffee % (Auto) (0.0-10.0) % Eos % (Auto) (0.0-4.0) % Baso % (Auto) (0.0-2.0) % Neut # (1.8-7.0) K/uL Lymph # (1.0-4.3) K/uL Coffee # (0.0-0.8) K/uL Eos # (0.0-0.7) K/uL Baso # (0.0-0.2) K/uL Neutrophils % (Manual) (50-75) % Band Neutrophils % (0-2) % Lymphocytes % (Manual) (20-40) % Monocytes % (Manual) (0-10) % Eosinophils % (Manual) (0-4) % Metamyelocytes % (0-0) % Platelet Estimate (NORMAL) Hypochromasia (manual) Poikilocytosis (manual Anisocytosis (manual) Ovalocytes PT (9.7-12.2) SECONDS INR APTT (21-34) SECONDS Sodium (132-148) mmol/L Potassium (3.6-5.2) mmol/L Chloride (98-107) mmol/L Carbon Dioxide (22-30) mmol/L Anion Gap (10-20) BUN (9-20) mg/dL Creatinine (0.8-1.5) MG/DL Est GFR ( Amer) Est GFR (Non-Af Amer) POC Glucose (mg/dL) 310 H (65-110) mg/dL Random Glucose (75-110) mg/dL Lactic Acid 1.6 (0.7-2.1) mmol/L Calcium (8.6-10.4) mg/dl Phosphorus (2.5-4.5) mg/dL Magnesium (1.6-2.3) mg/dL Total Bilirubin (0.2-1.3) mg/dL AST (17-59) U/L ALT (21-72) U/L Alkaline Phosphatase (38-126) U/L Total Protein (6.3-8.3) g/dL Albumin (3.5-5.0) g/dL Globulin (2.2-3.9) gm/dL Albumin/Globulin Ratio (1.0-2.1) Laboratory Results - last 24 hr 0305/22/16 05/23/16 09:22 11:45 00:42 WBC RBC Hgb Hct MCV MCH MCHC RDW Plt Count MPV Neut % (Auto) Lymph % (Auto) Coffee % (Auto) Eos % (Auto) Baso % (Auto) Neut # Lymph # Coffee # Eos # Baso # Neutrophils % (Manual) Band Neutrophils % Lymphocytes % (Manual) Monocytes % (Manual) Eosinophils % (Manual) Metamyelocytes % Platelet Estimate Hypochromasia (manual) Poikilocytosis (manual Anisocytosis (manual) Ovalocytes PT INR APTT Sodium Potassium Chloride Carbon Dioxide Anion Gap BUN Creatinine Est GFR ( Amer) Est GFR (Non-Af Amer) POC Glucose (mg/dL) 310 H 226 H Random Glucose Lactic Acid 1.6 Calcium Phosphorus Magnesium Total Bilirubin AST ALT Alkaline Phosphatase Total Protein Albumin Globulin Albumin/Globulin Ratio 05/23/16 05/23/16 05:54 05:59 WBC 13.1 H RBC 3.18 L Hgb 8.6 L Hct 27.0 L MCV 84.6 MCH 27.0 MCHC 31.9 L RDW 16.8 H Plt Count 177 MPV 8.5 Neut % (Auto) 88.5 H Lymph % (Auto) 4.8 L Coffee % (Auto) 5.7 Eos % (Auto) 0.8 Baso % (Auto) 0.2 Neut # 11.6 H Lymph # 0.6 L Coffee # 0.7 Eos # 0.1 Baso # 0.0 Neutrophils % (Manual) 73 Band Neutrophils % 12 H* Lymphocytes % (Manual) 4 L Monocytes % (Manual) 8 Eosinophils % (Manual) 2 Metamyelocytes % 1 H Platelet Estimate Normal Hypochromasia (manual) Slight Poikilocytosis (manual Slight Anisocytosis (manual) Slight Ovalocytes Slight PT 10.8 INR 1.0 APTT 25 Sodium 143 Potassium 4.0 Chloride 108 H Carbon Dioxide 24 Anion Gap 15 BUN 93 H Creatinine 1.8 H Est GFR ( Amer) 44 Est GFR (Non-Af Amer) 36 POC Glucose (mg/dL) 153 H Random Glucose 151 H Lactic Acid Calcium 7.1 L Phosphorus 3.8 Magnesium 2.2 Total Bilirubin 0.5 AST 14 L ALT 27 Alkaline Phosphatase 60 Total Protein 4.7 L Albumin 2.1 L Globulin 2.6 Albumin/Globulin Ratio 0.8 L EKG/Cardiology Studies: Cardiology / EKG Studies 05/22/16 14:04 EKG [ELECTROCARDIOGRAM] Stat Comment: Mode Of Transportation: Reason For Exam: pvcs on telemetry Fingerstick Blood Sugar Results: 153 Review of Systems - Review of Systems Review of Systems: as indicated in subjective Critical Care Progress Note - Nutrition Nutrition: Nutrition Category Date Time Status NPO Diet [DIET] Diets 05/22/16 Breakfast Active Assessment/Plan - Assessment and Plan (Free Text) Assessment: 85 M with significant PMHX including but not limited to chronic HTN, diabetic, CAD admitted with hypotension, tachycardia, and hypoxia. Patient improving with IV fluids; however bandemia findings 05/23 point to underlying infectious etiology. Plan: Neuro: Neurocheck q4 Cardio: Tachycardia Hypotension, with history of Hypertension Monitor 05/22 EKG: right BBB, PACs, PVCs Sinus rhythm at 69 bpm. 05/21 EKG: NSR @ 100, Right BBB, septal infarct, age undetermined ENT: Brimonidine tartrate 1 drop in affected eyes TID LASHA Dorzolamide 1 drop in affected eyes TID LASHA Pulm: Maintain O2 Sat >92% Guaifenesin 600 mg PO BID Imagin/17 CXR: Mild increased pulmonary vascular congestion. . F/U morning XRAY 05/22 CXR: No interval pathology indicated Endo: DM Maintain euglycemia Sliding scale Novolog units SC Q6 Latanoprost OU HS [facility] GI: Advance to clears once mentation improves Monitor Daily CMP Procedures: 05/23 EGD: GE junction @ 35 cm hiatal narrowing @37 cm. Post op diagnosis: non- bleeding gastric ulcer. Gastritis. Esophagitis, hiatal hernia. 05/23 EGD report: LA Grade D esophagitis ( one or more mucosal breaks involving 75% of esophageal circumference) no bleeding found. Biopsies taken for histology. 4mm superficial non-bleeding ulcer in gastric body. 3 mm non bleeding ulcer in gastric antrum. 1 cm hiatus hernia present. Non-bleeding linear duodenal ulcer with black pigmented spot (Patrick Class IIC) found in duodenal bulb. : BPH I/Os = 2780/1535 = 1245 Monitor I/Os Tamsulosin 0.4 mg PO daily Renal: Monitor I/Os NS 1000 cc @ 100 cc/hr IV Q10H Heme: H&H 8.6/27.0 Hgb: 9.0>7.8>8.6 Monitor H&H Daily CBC Folic Acid 1 mg 100.2 cc @ 60cc/hr MSK: PT/OT eval ID: WBC trending down 15.6>15.7>13.1 Daily CBC Cefepime 1 grm 50 cc @ 100 cc/hr Nystatin cream TID LASHA Vancomycin 200 cc @ 133.33 cc/hr IVPB Q24H Prophylaxis: DVT: not indicated GI: Protonix 40 mg IVP Q12H [facility] <FelicityAjay M - Last Filed: 05/29/16 23:54> CCU Objective - Vital Signs / Intake & Output Vital Signs (Last 4 hours): Vital Signs Pulse 05/29/16 20:00 76 Intake and Output (Last 8hrs): Intake & Output 05/29/16 05/29/16 05/30/16 14:59 22:59 06:59 Intake Total 570 340 Output Total 320 150 Balance 250 190 Intake: Intake, IV Amount 270 40 Right Forearm 70 40 Right Upper arm 200 Oral 300 300 Output: Urine 320 150 Urethral (Cardenas) 320 150 - Medications Active Medications: Active Medications Generic Name Dose Route Start Last Admin Trade Name Freq PRN Reason Stop Dose Admin Brimonidine Tartrate 0 ml 05/22/16 14:00 05/29/16 18:14 Alphagan 0.2% Opht OU 1 drop TID L[facility] Administration Dorzolamide HCl 0 ml 05/22/16 14:00 05/29/16 18:11 Trusopt OU 1 drop TID L[facility] Administration Pantoprazole Sodium 80 mg/ 100 mls @ 10 mls/hr 05/24/16 12:45 05/29/16 22:29 Sodium Chloride IV Not Given .Q10H L[facility] Imipenem/Cilastatin Sodium 250 100 mls @ 100 mls/hr 05/24/16 19:15 05/29/16 18: 16 mg/ Sodium Chloride IVPB 100 mls/hr Q6H [facility] Administration Insulin Aspart 0 unit 05/26/16 22:00 05/29/16 22:24 Novolog SC Not Given ACHS L[facility] Protocol Latanoprost 0 ml 05/22/16 22:00 05/29/16 22:29 Xalatan Opht OU 2.5 ml HS [facility] Administration Nystatin 0 ea 05/22/16 10:15 05/29/16 18:12 Mycostatin Cream TOP 1 applic TID L[facility] Administration Tamsulosin HCl 0.4 mg 05/22/16 10:00 05/29/16 09:21 Flomax PO 0.4 mg DAILY [facility] Administration - Patient Studies Lab Studies: Lab Studies 05/29/16 05/29/16 05/29/16 Range/Units 21:26 16:04 12:06 WBC (4.8-10.8) K/uL RBC (4.40-5.90) Mil/uL Hgb (12.0-18.0) g/dL Hct (35.0-51.0) % MCV (80.0-94.0) fL MCH (27.0-31.0) pg MCHC (33.0-37.0) g/dL RDW (11.5-14.5) % Plt Count (130-400) K/uL MPV (7.2-11.7) fL Neut % (Auto) (50.0-75.0) % Lymph % (Auto) (20.0-40.0) % Coffee % (Auto) (0.0-10.0) % Eos % (Auto) (0.0-4.0) % Baso % (Auto) (0.0-2.0) % Neut # (1.8-7.0) K/uL Lymph # (1.0-4.3) K/uL Coffee # (0.0-0.8) K/uL Eos # (0.0-0.7) K/uL Baso # (0.0-0.2) K/uL Neutrophils % (Manual) (50-75) % Band Neutrophils % (0-2) % Lymphocytes % (Manual) (20-40) % Monocytes % (Manual) (0-10) % Eosinophils % (Manual) (0-4) % Platelet Estimate (NORMAL) Hypochromasia (manual) Poikilocytosis (manual Anisocytosis (manual) Microcytosis (manual) Macrocytosis (manual) Target Cells Ovalocytes [place] Cells Sodium (132-148) mmol/L Potassium (3.6-5.2) mmol/L Chloride (98-107) mmol/L Carbon Dioxide (22-30) mmol/L Anion Gap (10-20) BUN (9-20) mg/dL Creatinine (0.8-1.5) MG/DL Est GFR ( Amer) Est GFR (Non-Af Amer) POC Glucose (mg/dL) 158 H 133 H 148 H (65-110) mg/dL Random Glucose (75-110) mg/dL Calcium (8.6-10.4) mg/dl Phosphorus (2.5-4.5) mg/dL Magnesium (1.6-2.3) mg/dL Total Bilirubin (0.2-1.3) mg/dL AST (17-59) U/L ALT (21-72) U/L Alkaline Phosphatase (38-126) U/L Total Protein (6.3-8.3) g/dL Albumin (3.5-5.0) g/dL Globulin (2.2-3.9) gm/dL Albumin/Globulin Ratio (1.0-2.1) 05/29/16 05/29/16 05/29/16 Range/Units 11:40 08:57 07:42 WBC 19.8 H (4.8-10.8) K/uL RBC 3.06 L (4.40-5.90) Mil/uL Hgb 8.4 L (12.0-18.0) g/dL Hct 26.6 L (35.0-51.0) % MCV 86.8 (80.0-94.0) fL MCH 27.5 (27.0-31.0) pg MCHC 31.7 L (33.0-37.0) g/dL RDW 19.3 H (11.5-14.5) % Plt Count 147 (130-400) K/uL MPV 7.7 (7.2-11.7) fL Neut % (Auto) 90.7 H (50.0-75.0) % Lymph % (Auto) 5.0 L (20.0-40.0) % Coffee % (Auto) 3.4 (0.0-10.0) % Eos % (Auto) 0.6 (0.0-4.0) % Baso % (Auto) 0.3 (0.0-2.0) % Neut # 17.9 H (1.8-7.0) K/uL Lymph # 1.0 (1.0-4.3) K/uL Coffee # 0.7 (0.0-0.8) K/uL Eos # 0.1 (0.0-0.7) K/uL Baso # 0.1 (0.0-0.2) K/uL Neutrophils % (Manual) 86 H (50-75) % Band Neutrophils % 3 H (0-2) % Lymphocytes % (Manual) 4 L (20-40) % Monocytes % (Manual) 6 (0-10) % Eosinophils % (Manual) 1 (0-4) % Platelet Estimate Normal (NORMAL) Hypochromasia (manual) Slight Poikilocytosis (manual Slight Anisocytosis (manual) Slight Microcytosis (manual) Slight Macrocytosis (manual) Slight Target Cells Slight Ovalocytes Slight [place] Cells Slight Sodium 152 H (132-148) mmol/L Potassium 3.6 (3.6-5.2) mmol/L Chloride 124 H (98-107) mmol/L Carbon Dioxide 17 L (22-30) mmol/L Anion Gap 15 (10-20) BUN 13 (9-20) mg/dL Creatinine 1.3 (0.8-1.5) MG/DL Est GFR ( Amer) > 60 Est GFR (Non-Af Amer) 53 POC Glucose (mg/dL) 188 H 106 (65-110) mg/dL Random Glucose 119 H (75-110) mg/dL Calcium 7.5 L (8.6-10.4) mg/dl Phosphorus 1.9 L (2.5-4.5) mg/dL Magnesium 1.8 (1.6-2.3) mg/dL Total Bilirubin 0.2 (0.2-1.3) mg/dL AST 17 (17-59) U/L ALT 13 L D (21-72) U/L Alkaline Phosphatase 59 (38-126) U/L Total Protein 4.5 L (6.3-8.3) g/dL Albumin 1.8 L (3.5-5.0) g/dL Globulin 2.6 (2.2-3.9) gm/dL Albumin/Globulin Ratio 0.7 L (1.0-2.1) Laboratory Results - last 24 hr 05/29/16 05/29/16 05/29/16 07:42 08:57 11:40 WBC 19.8 H RBC 3.06 L Hgb 8.4 L Hct 26.6 L MCV 86.8 MCH 27.5 MCHC 31.7 L RDW 19.3 H Plt Count 147 MPV 7.7 Neut % (Auto) 90.7 H Lymph % (Auto) 5.0 L Coffee % (Auto) 3.4 Eos % (Auto) 0.6 Baso % (Auto) 0.3 Neut # 17.9 H Lymph # 1.0 Coffee # 0.7 Eos # 0.1 Baso # 0.1 Neutrophils % (Manual) 86 H Band Neutrophils % 3 H Lymphocytes % (Manual) 4 L Monocytes % (Manual) 6 Eosinophils % (Manual) 1 Platelet Estimate Normal Hypochromasia (manual) Slight Poikilocytosis (manual Slight Anisocytosis (manual) Slight Microcytosis (manual) Slight Macrocytosis (manual) Slight Target Cells Slight Ovalocytes Slight [place] Cells Slight Sodium 152 H Potassium 3.6 Chloride 124 H Carbon Dioxide 17 L Anion Gap 15 BUN 13 Creatinine 1.3 Est GFR ( Amer) > 60 Est GFR (Non-Af Amer) 53 POC Glucose (mg/dL) 106 188 H Random Glucose 119 H Calcium 7.5 L Phosphorus 1.9 L Magnesium 1.8 Total Bilirubin 0.2 AST 17 ALT 13 L D Alkaline Phosphatase 59 Total Protein 4.5 L Albumin 1.8 L Globulin 2.6 Albumin/Globulin Ratio 0.7 L 05/29/16 05/29/16 05/29/16 12:06 16:04 21:26 WBC RBC Hgb Hct MCV MCH MCHC RDW Plt Count MPV Neut % (Auto) Lymph % (Auto) Coffee % (Auto) Eos % (Auto) Baso % (Auto) Neut # Lymph # Coffee # Eos # Baso # Neutrophils % (Manual) Band Neutrophils % Lymphocytes % (Manual) Monocytes % (Manual) Eosinophils % (Manual) Platelet Estimate Hypochromasia (manual) Poikilocytosis (manual Anisocytosis (manual) Microcytosis (manual) Macrocytosis (manual) Target Cells Ovalocytes [place] Cells Sodium Potassium Chloride Carbon Dioxide Anion Gap BUN Creatinine Est GFR ( Amer) Est GFR (Non-Af Amer) POC Glucose (mg/dL) 148 H 133 H 158 H Random Glucose Calcium Phosphorus Magnesium Total Bilirubin AST ALT Alkaline Phosphatase Total Protein Albumin Globulin Albumin/Globulin Ratio Critical Care Progress Note - Nutrition Nutrition: Nutrition Category Date Time Status Liquid Diet [DIET] Diets 05/27/16 Breakfast Active NPO Diet [DIET] Diets 05/30/16 Breakfast Active Attending/Attestation - Attestation I have personally seen and examined this patient.: Yes I have fully participated in the care of the patient.: Yes I have reviewed all pertinent clinical information: Yes Notes (Text): Today: Monday, May 23, 2016 The Patient was seen and examined at the bedside, Medical records reviewed, all clinical/lab/hemodynamic/radiographic data were reviewed and management issues were discussed and formulated, Events reviewed Pain issues, skin care, head of the bed elevation, glycemic control were addressed. Agree with above treatment plans as transcribed in Dr. Caridad romano
[2016-05-23] MEDS: Nystatin 100,000 Units/gm Cream(15 gm) TOP SCH ×3 (09:34→18:43)
[2016-05-23] MEDS: Brimonidine 0.2% Opth Sol (5ml) OU SCH ×3 (09:35→17:01)
[2016-05-23] MEDS: Dorzolamide 2% Opht Sol 10ml OU SCH ×3 (09:35→17:01)
[2016-05-23] MEDS: guaiFENesin 600 mg ER Tab PO SCH ×2 (09:41→17:00)
--- NOTE | 2016-05-23 10:10 | RAD ---
HISTORY: comparison to 05/21 xray COMPARISON: 05/21/2016. FINDINGS: LUNGS: Mild increased pulmonary vascular congestion. PLEURA: No significant pleural effusion identified, no pneumothorax apparent.Biapical pleural parenchymal thickening noted. CARDIOVASCULAR: Mildly enlarged cardiomediastinal silhouette. OSSEOUS STRUCTURES: The osseous structures demonstrate degenerative changes. VISUALIZED UPPER ABDOMEN: Upper abdomen is suboptimally evaluated. OTHER FINDINGS: Midline sternotomy wires. IMPRESSION: Mild increased pulmonary vascular congestion.
[2016-05-23] MEDS: Cefepime IV 1 gm in Dextrose 50 ML IVPB SCH (10:20)
[2016-05-23] MEDS: Vancomycin 1 gm/NS 200 ml 200 ML IVPB SCH (10:20)
--- NOTE | 2016-05-23 16:34 | CP.PCM.CON ---
History of Present Illness - History of Present Illness History of Present Illness: CC: Patient was in hospital recently in APR 2016 for weakness, PNA and was Rx and sent to rehab: he recently readmitted for failure to thrive, incoherence and weakness, tachycardia, hypotension and GI bleed. He has since been transfused 2 units PRBCs and EGD reveals erosive gastritis, nonbleeding gastic ulcer and hiatal hernia (FULL REPORT PENDING). Currently normotensive; NSR, no CP , alert and awke and oriented. No complaints reported other then acute on chronic blurred vision 'asking for his eye drops' CARDIAC HISTORY: * ? CVA/MD 1995: No residual deficits, * 2002 MD : ? PCI * MD 2012: cath 3VD had CABG 2012 Prior Testing: * 03/14/15: RBBB, left axis, old anterior infarct (no new changes) * 04/12/15: [facility]): Doppler neg DVT study * 04/12/15: [facility] ECHO Mod LV dysfunction, mild-mod MR, mild , distal septal and anterior akinesia with advanced diastolic dysfunction. * 04/2016: [facility]: mild-MOD around 40% with mid to distal septum akinesia c/w with known hx of CAD Aortic valve opens but with reduced excursion and a mean gradient of 22mmHg, max jet velocity of 3m/s and a dimensionless index of .31 c/w moderate aortic stenosis: This should be closely followed as outpatient. His volume status is improved with echo showing grade 1 diastolic dysfunction with normal LAP. RV function is low-normal and PASP is upper normal at 32mmHg. Mild MR, Mild AI and Mild TR noted. * 05/2015: <50% stenosis B/L carotids SOCHX: No TOB, ETOH or IVDA ROS: patient has hx of generalized weakness which is chronic, imbalnce which is chronic and occasional lapses is memory. He also has intermittent swelling in the legs which has been fairly well controlled with titration of diuretics. Review of Systems - Review of Systems All systems: reviewed and no additional remarkable complaints except Past Patient History - Tetanus Immunizations Tetanus Immunization: Unknown - Past Medical History & Family History Past Medical History?: Yes - Past Social History Smoking Status: Never Smoked - CARDIAC Hx Cardiac Disorders: Yes Hx Cardia Arrhythmia: Yes Hx Congestive Heart Failure: Yes Hx Hypercholesterolemia: Yes Hx Hypertension: Yes Hx Peripheral Edema: Yes - PULMONARY Hx Respiratory Disorders: Yes Hx Pneumonia: Yes - NEUROLOGICAL Hx Neurological Disorder: Yes HX Cerebrovascular Accident: Yes - HEENT Hx HEENT Problems: Yes Hx Glaucoma: Yes - RENAL Hx Chronic Kidney Disease: Yes Other/Comment: ckd - ENDOCRINE/METABOLIC Hx Endocrine Disorders: Yes Hx Diabetes Mellitus Type 2: Yes - HEMATOLOGICAL/ONCOLOGICAL Hx Blood Disorders: Yes Hx Anemia: Yes - INTEGUMENTARY Hx Dermatological Problems: No - MUSCULOSKELETAL/RHEUMATOLOGICAL Hx Musculoskeletal Disorders: Yes Hx Falls: Yes - GASTROINTESTINAL Hx Gastrointestinal Disorders: No - GENITOURINARY/GYNECOLOGICAL Hx Genitourinary Disorders: No - PSYCHIATRIC Hx Psychophysiologic Disorder: No Hx Substance Use: No - SURGICAL HISTORY Hx Surgeries: Yes Hx Appendectomy: Yes (2014) Hx Coronary Artery Bypass Graft: Yes (2012) - ANESTHESIA Hx Anesthesia: Yes Hx Anesthesia Reactions: No Hx Malignant Hyperthermia: No Has any member of the family had a problem w/ anesthesia?: No Meds Allergies/Adverse Reactions: Allergies Allergy/AdvReac Type Severity Reaction Status Date / Time No Known Allergies Allergy Unverified 05/21/16 23:21 - Medications Medications: Current Medications Brimonidine Tartrate (Alphagan 0.2% Opht) 0 ml OU TID REPLACED BY [facility] Last Admin: 05/23/16 14:20 Dose: 1 drop Dorzolamide HCl (Trusopt) 0 ml OU TID REPLACED BY [facility] Last Admin: 05/23/16 14:20 Dose: 1 drop Guaifenesin (Mucinex La) 600 mg PO BID REPLACED BY [facility] Last Admin: 05/23/16 09:41 Dose: Not Given Folic Acid 1 mg/ Sodium (Chloride) 100.2 mls @ 60 mls/hr IV DAILY REPLACED BY [facility] Last Admin: 05/23/16 09:34 Dose: 60 mls/hr Sodium Chloride (Sodium Chloride 0.9%) 1,000 mls @ 100 mls/hr IV .Q10H REPLACED BY [facility] Last Admin: 05/23/16 11:04 Dose: Not Given Cefepime HCl (Maxipime Iv 1 Gm Premix) 50 mls @ 100 mls/hr IVPB Q24H REPLACED BY [facility] Last Admin: 05/23/16 10:20 Dose: 100 mls/hr Vancomycin/Sodium Chloride (Vancocin) 200 mls @ 133.333 mls/hr IVPB Q24H REPLACED BY [facility] Last Admin: 05/23/16 10:20 Dose: 133.333 mls/hr Insulin Aspart (Novolog) 0 unit SC Q6 REPLACED BY [facility] PRN Reason: Protocol Last Admin: 05/23/16 12:17 Dose: Not Given Latanoprost (Xalatan Opht) 0 ml OU HS REPLACED BY [facility] Last Admin: 05/22/16 21:04 Dose: 2.5 ml Nystatin (Mycostatin Cream) 0 ea TOP TID REPLACED BY [facility] Last Admin: 05/23/16 14:21 Dose: 1 applic Pantoprazole Sodium (Protonix Inj) 40 mg IVP Q12H REPLACED BY [facility] Last Admin: 05/23/16 06:04 Dose: 40 mg Tamsulosin HCl (Flomax) 0.4 mg PO DAILY REPLACED BY [facility] Last Admin: 05/23/16 09:41 Dose: Not Given Physical Exam - Constitutional Appears: Older Than Stated Age, Chronically Ill - Head Exam Head Exam: ATRAUMATIC, NORMAL INSPECTION, NORMOCEPHALIC - Eye Exam Eye Exam: EOMI, Normal appearance, PERRL - ENT Exam ENT Exam: Normal Oropharynx - Neck Exam Neck exam: Negative for: Tenderness, Thyromegaly - Respiratory Exam Respiratory Exam: Decreased Breath Sounds (at bases), Clear to Auscultation Bilateral, NORMAL BREATHING PATTERN - Cardiovascular Exam Cardiovascular Exam: REGULAR RHYTHM, +S1, +S2, Systolic Murmur (2/6 TAWNYA RUSB with audible A2) - GI/Abdominal Exam GI & Abdominal Exam: Normal Bowel Sounds, Soft. absent: Tenderness - Extremities Exam Extremities exam: Positive for: normal inspection. Negative for: calf tenderness, pedal edema - Neurological Exam Neurological exam: Alert, Oriented x3 - Psychiatric Exam Psychiatric exam: Normal Affect, Normal Mood - Skin Skin Exam: Normal Color, Warm Results - Vital Signs Recent Vital Signs: Last Vital Signs Temp 97.0 F L 05/23/16 12:00 Pulse 89 05/23/16 14:00 Resp 13 05/23/16 14:00 BP 119/70 05/23/16 13:22 Pulse Ox 100 05/23/16 14:00 - Labs Result Diagrams: 05/23/16 05:59 05/23/16 05:59 Labs: Laboratory Results - last 24 hr 05/23/16 05/23/16 05/23/16 00:42 05:54 05:59 WBC 13.1 H RBC 3.18 L Hgb 8.6 L Hct 27.0 L MCV 84.6 MCH 27.0 MCHC 31.9 L RDW 16.8 H Plt Count 177 MPV 8.5 Neut % (Auto) 88.5 H Lymph % (Auto) 4.8 L [place] % (Auto) 5.7 Eos % (Auto) 0.8 Baso % (Auto) 0.2 Neut # 11.6 H Lymph # 0.6 L [place] # 0.7 Eos # 0.1 Baso # 0.0 Neutrophils % (Manual) 73 Band Neutrophils % 12 H* Lymphocytes % (Manual) 4 L Monocytes % (Manual) 8 Eosinophils % (Manual) 2 Metamyelocytes % 1 H Platelet Estimate Normal Hypochromasia (manual) Slight Poikilocytosis (manual Slight Anisocytosis (manual) Slight Ovalocytes Slight PT 10.8 INR 1.0 APTT 25 Sodium 143 Potassium 4.0 Chloride 108 H Carbon Dioxide 24 Anion Gap 15 BUN 93 H Creatinine 1.8 H Est GFR ( Amer) 44 Est GFR (Non-Af Amer) 36 POC Glucose (mg/dL) 226 H 153 H Random Glucose 151 H Calcium 7.1 L Phosphorus 3.8 Magnesium 2.2 Total Bilirubin 0.5 AST 14 L ALT 27 Alkaline Phosphatase 60 Total Protein 4.7 L Albumin 2.1 L Globulin 2.6 Albumin/Globulin Ratio 0.8 L 05/23/16 12:15 WBC RBC Hgb Hct MCV MCH MCHC RDW Plt Count MPV Neut % (Auto) Lymph % (Auto) [place] % (Auto) Eos % (Auto) Baso % (Auto) Neut # Lymph # [place] # Eos # Baso # Neutrophils % (Manual) Band Neutrophils % Lymphocytes % (Manual) Monocytes % (Manual) Eosinophils % (Manual) Metamyelocytes % Platelet Estimate Hypochromasia (manual) Poikilocytosis (manual Anisocytosis (manual) Ovalocytes PT INR APTT Sodium Potassium Chloride Carbon Dioxide Anion Gap BUN Creatinine Est GFR ( Amer) Est GFR (Non-Af Amer) POC Glucose (mg/dL) 134 H Random Glucose Calcium Phosphorus Magnesium Total Bilirubin AST ALT Alkaline Phosphatase Total Protein Albumin Globulin Albumin/Globulin Ratio Assessment & Plan - Assessment and Plan (Free Text) Assessment: 85 y/o with Chronic compensated Mod LV systolic dysfunction, mild MR, Mod , distal septal and anterior akinesia due to chronic CAD s/p CABG in 2012. * Presented with URI sx's, SOB and PNA 04/2016: slowly improving with pulmonary RX and ABX. and sent to REHAB * Now admitted for failure to thrive and GI bleed, UTI from REHAB: S/P PRBcs and EGD and on ABX * EKG: RBBB, LAFB, NSR, no acute changes CADIAC: * Hx of known mild-mod LV dysfunction EF 35-40% due to ischemic cardiomyopathy * Euvolemic at present * No active cardiac complaints * Lower extrem edema is improved: * CKD stage 3A chronic 1. Suggest optimize medical therapy for CAD and CHF; once BP resolves ECHO done 04/2016 and reviewed by me: LV function is mild-MOD around 40% with mid to distal septum akinesia c/w with known hx of CAD Aortic valve opens but with reduced excursion and a mean gradient of 22mmHg, max jet velocity of 3m/s and a dimensionless index of .31 c/w moderate aortic stenosis: This should be closely followed as outpatient. His volume status is improved with echo showing grade 1 diastolic dysfunction with normal LAP. RV function is low-normal and PASP is upper normal at 32mmHg. Mild MR, Mild AI and Mild TR noted. 3. He had been on coreg 6.25 BID as outpatient along with atorvastatin 20 and Plavix 75; he was also on lasix 80 and metolazone 2.5 * Resume Coreg BID and inc as tolerated may help occasional PVcs on TELE * Reconsider JERROD-I or ARB i. diovan 40 when hypotension resolves * Resume ASA 81 when safe from GI perspective * No volume overload currently: resume lasix when possible for maintainence. Cont Rx and Recc per GI DVT prophylaxis - Date & Time Date: 05/23/16 Time: 16:49
--- NOTE | 2016-05-23 18:26 | CP.PCM.PN ---
Subjective - Date & Time of Evaluation Date of Evaluation: 05/23/16 Time of Evaluation: 11:20 - Subjective Subjective: clinically same Objective - Vital Signs/Intake and Output Vital Signs (last 24 hours): Temp Pulse Resp BP Pulse Ox 97.1 F L 82 12 93/49 L 98 05/23/16 16:00 05/23/16 18:00 05/23/16 18:00 05/23/16 17:32 05/23/16 18:00 Intake and Output: 05/23/16 05/23/16 06:59 18:59 Intake Total 1305 1350 Output Total 1520 Balance 1305 -170 - Medications Medications: Current Medications Brimonidine Tartrate (Alphagan 0.2% Opht) 0 ml OU TID [facility] Last Admin: 05/23/16 17:01 Dose: 1 drop Dorzolamide HCl (Trusopt) 0 ml OU TID [facility] Last Admin: 05/23/16 17:01 Dose: 1 drop Guaifenesin (Mucinex La) 600 mg PO BID [facility] Last Admin: 05/23/16 17:00 Dose: 600 mg Folic Acid 1 mg/ Sodium (Chloride) 100.2 mls @ 60 mls/hr IV DAILY [facility] Last Admin: 05/23/16 09:34 Dose: 60 mls/hr Sodium Chloride (Sodium Chloride 0.9%) 1,000 mls @ 100 mls/hr IV .Q10H [facility] Last Admin: 05/23/16 11:04 Dose: Not Given Cefepime HCl (Maxipime Iv 1 Gm Premix) 50 mls @ 100 mls/hr IVPB Q24H [facility] Last Admin: 05/23/16 10:20 Dose: 100 mls/hr Vancomycin/Sodium Chloride (Vancocin) 200 mls @ 133.333 mls/hr IVPB Q24H [facility] Last Admin: 05/23/16 10:20 Dose: 133.333 mls/hr Insulin Aspart (Novolog) 0 unit SC Q6 [facility] PRN Reason: Protocol Last Admin: 05/23/16 12:17 Dose: Not Given Latanoprost (Xalatan Opht) 0 ml OU HS [facility] Last Admin: 05/22/16 21:04 Dose: 2.5 ml Nystatin (Mycostatin Cream) 0 ea TOP TID [facility] Last Admin: 05/23/16 14:21 Dose: 1 applic Pantoprazole Sodium (Protonix Inj) 40 mg IVP Q12H [facility] Last Admin: 05/23/16 15:20 Dose: 40 mg Tamsulosin HCl (Flomax) 0.4 mg PO DAILY [facility] Last Admin: 05/23/16 09:41 Dose: Not Given - Labs Labs: 05/23/16 05:59 05/23/16 05:59 PT 10.8 SECONDS (9.7-12.2) 05/23/16 05:59 INR 1.0 05/23/16 05:59 APTT 25 SECONDS (21-34) 05/23/16 05:59 - Constitutional Appears: Well - Head Exam Head Exam: ATRAUMATIC, NORMAL INSPECTION, NORMOCEPHALIC - Eye Exam Eye Exam: EOMI, Normal appearance, PERRL Pupil Exam: NORMAL ACCOMODATION, PERRL - ENT Exam ENT Exam: Mucous Membranes Moist, Normal Exam - Neck Exam Neck Exam: Full ROM, Normal Inspection. absent: Lymphadenopathy - Respiratory Exam Respiratory Exam: Decreased Breath Sounds - Cardiovascular Exam Cardiovascular Exam: REGULAR RHYTHM, +S1, +S2 - GI/Abdominal Exam GI & Abdominal Exam: Soft, Diminished Bowel Sounds - Rectal Exam Rectal Exam: Deferred Assessment and Plan (1) Acute renal failure Status: Acute (2) Anemia Status: Acute (3) BPH (benign prostatic hyperplasia) Status: Acute (4) Bilateral edema of lower extremity Status: Acute (5) DVT prophylaxis Status: Acute (6) Dry gangrene Status: Acute (7) Gastrointestinal hemorrhage Status: Acute (8) Hypochromic microcytic anemia Status: Acute (9) Hypovolemic shock Status: Acute (10) Memory difficulty Status: Acute (11) Paresthesia of both lower extremities Status: Acute (12) Pneumonia Status: Acute (13) CHF (congestive heart failure) Status: Chronic (14) Diabetes mellitus Status: Chronic - Assessment and Plan (Free Text) Plan: f/u with GI f/u with Heme/onc consult cardio GI endoscopy scheduled today Mucinex IV NS Maxipime Vancocin Novolog f/u with labs
[2016-05-23] MEDS: Latanoprost 2.5 ml Opht Soln OU SCH (21:12)
[2016-05-24] MEDS: (Novolog) Insulin Aspart, Recombinant 100 u/ml 10 ml vial SC SCH ×5 (00:03→23:36)
[2016-05-24] MEDS: Sodium Chloride 0.9% 1,000 ML IV SCH ×4 (04:50→19:53)
[2016-05-24 06:49] LABS: BASO % 0.3 % (0.0-2.0); EOS # 0.1 K/uL (0.0-0.7); EOS % 1.3 % (0.0-4.0); HEMATOCRIT 25.4 % (35.0-51.0); LYMPH # 0.6 K/uL (1.0-4.3); LYMPH % 5.6 % (20.0-40.0); MEAN CELL VOLUME 85.9 fL (80.0-94.0); MEAN CORPUSCULAR HEMOGLOBIN 27.7 pg (27.0-31.0); MEAN CORPUSCULAR HGB CONC 32.3 g/dL (33.0-37.0); MONO # 0.9 K/uL (0.0-0.8); MONO % 8.6 % (0.0-10.0); NRBC % 0.1 % (0.0-2.0); PLATELET COUNT 170 K/uL (130-400); RED CELL DISTRIBUTION WIDTH 17.4 % (11.5-14.5); WHITE BLOOD COUNT 10.6 K/uL (4.8-10.8)
[2016-05-24 07:03] LABS: CHLORIDE 118 mmol/L (98-107); IRON 26 ug/dL (49-181)
[2016-05-24 07:04] LABS: POTASSIUM 3.6 mmol/L (3.6-5.2); SODIUM 150 mmol/L (132-148)
[2016-05-24 07:06] LABS: GFR AFRICAN-AMERICAN 47
[2016-05-24 07:07] LABS: ALB/GLOB RATIO 0.7 (1.0-2.1); ALKALINE PHOSPHATASE 55 U/L (38-126); ALT/SGPT 30 U/L (21-72); AST/SGOT 12 U/L (17-59); BILIRUBIN,TOTAL 0.2 mg/dL (0.2-1.3); BLOOD UREA NITROGEN 57 mg/dL (9-20); CALCIUM 7.3 mg/dl (8.6-10.4); CARBON DIOXIDE 21 mmol/L (22-30); GLUCOSE,RANDOM 127 mg/dL (75-110); PHOSPHOROUS 2.8 mg/dL (2.5-4.5); TOTAL PROTEIN 4.7 g/dL (6.3-8.3)
[2016-05-24 07:08] LABS: MAGNESIUM 2.2 mg/dL (1.6-2.3)
[2016-05-24 08:06] LABS: FOLATE > 20.0 ng/mL
[2016-05-24 09:15] LABS: EOSINOPHIL 1 % (0-4); METAMYELOCYTE 1 % (0-0); MYELOCYTE 1 % (0-0); NEUTROPHIL 80 % (50-75); TOTAL CELLS COUNTED 100
[2016-05-24 09:16] LABS: SPHEROCYTES SLIGHT
[2016-05-24 09:17] LABS: LARGE PLATELETS PRESENT
[2016-05-24] MEDS: guaiFENesin 600 mg ER Tab PO SCH ×2 (09:43→17:25)
[2016-05-24] MEDS: Dorzolamide 2% Opht Sol 10ml OU SCH ×3 (09:45→17:25)
[2016-05-24] MEDS: Brimonidine 0.2% Opth Sol (5ml) OU SCH ×3 (09:45→17:25)
[2016-05-24] MEDS: Nystatin 100,000 Units/gm Cream(15 gm) TOP SCH ×3 (09:46→17:26)
--- NOTE | 2016-05-24 10:34 | CP.PCM.PN ---
<Denae Chakraborty - Last Filed: 05/24/16 11:32> Subjective - Date & Time of Evaluation Date of Evaluation: 05/24/16 Time of Evaluation: 10:30 - Subjective Subjective: Gastroenterology Fellow/PGY4 Progress Note Patient denies abdominal pain. Nurse denies melena or hematochezia overnight. Patient feels urge for bowel movement at time of evaluation. Mentation improved and back to baseline. Tolerated clear liquid diet. A 12-point review of systems negative except for above. 1050- passed large blood clots with hematochezia Objective - Vital Signs/Intake and Output Vital Signs (last 24 hours): Temp Pulse Resp BP Pulse Ox 97.1 F L 75 12 115/58 L 100 05/24/16 08:00 05/24/16 08:22 05/24/16 08:22 05/24/16 08:22 05/24/16 08:22 Intake and Output: 05/24/16 05/24/16 06:59 18:59 Intake Total 1400 200 Output Total 890 125 Balance 510 75 - Medications Medications: Current Medications Brimonidine Tartrate (Alphagan 0.2% Opht) 0 ml OU TID [facility] Last Admin: 05/24/16 09:45 Dose: 1 drop Dorzolamide HCl (Trusopt) 0 ml OU TID [facility] Last Admin: 05/24/16 09:45 Dose: 1 drop Guaifenesin (Mucinex La) 600 mg PO BID [facility] Last Admin: 05/24/16 09:43 Dose: 600 mg Folic Acid 1 mg/ Sodium (Chloride) 100.2 mls @ 60 mls/hr IV DAILY [facility] Last Admin: 05/24/16 09:43 Dose: 60 mls/hr Sodium Chloride (Sodium Chloride 0.9%) 1,000 mls @ 100 mls/hr IV .Q10H [facility] Last Admin: 05/24/16 07:30 Dose: Not Given Cefepime HCl (Maxipime Iv 1 Gm Premix) 50 mls @ 100 mls/hr IVPB Q24H [facility] Last Admin: 05/23/16 10:20 Dose: 100 mls/hr Vancomycin/Sodium Chloride (Vancocin) 200 mls @ 133.333 mls/hr IVPB Q24H [facility] Last Admin: 05/23/16 10:20 Dose: 133.333 mls/hr Insulin Aspart (Novolog) 0 unit SC ACHS [facility] PRN Reason: Protocol Last Admin: 05/24/16 07:47 Dose: 1 unit Latanoprost (Xalatan Opht) 0 ml OU HS [facility] Last Admin: 05/23/16 21:12 Dose: 2.5 ml Nystatin (Mycostatin Cream) 0 ea TOP TID [facility] Last Admin: 05/24/16 09:46 Dose: 1 applic Pantoprazole Sodium (Protonix Inj) 40 mg IVP Q12H [facility] Last Admin: 05/24/16 02:02 Dose: 40 mg Tamsulosin HCl (Flomax) 0.4 mg PO DAILY [facility] Last Admin: 05/24/16 09:43 Dose: 0.4 mg - Labs Labs: 05/24/16 06:36 05/24/16 06:36 PT 10.8 SECONDS (9.7-12.2) 05/23/16 05:59 INR 1.0 05/23/16 05:59 APTT 25 SECONDS (21-34) 05/23/16 05:59 - Constitutional Appears: Non-toxic, No Acute Distress - Head Exam Head Exam: ATRAUMATIC, NORMOCEPHALIC - Eye Exam Eye Exam: EOMI, PERRL Pupil Exam: PERRL. absent: Miosis, Mydriatic - ENT Exam ENT Exam: Mucous Membranes Moist, Normal Oropharynx - Neck Exam Neck Exam: Full ROM, Normal Inspection - Respiratory Exam Respiratory Exam: Clear to Ausculation Bilateral. absent: Rales, Rhonchi, Wheezes - Cardiovascular Exam Cardiovascular Exam: RRR, +S1, +S2, Murmur. absent: Gallop, Rubs - GI/Abdominal Exam GI & Abdominal Exam: Soft, Normal Bowel Sounds. absent: Distended, Firm, Guarding, Rigid, Tenderness, Mass, Organomegaly, Rebound - Extremities Exam Extremities Exam: Normal Inspection. absent: Pedal Edema - Neurological Exam Neurological Exam: Alert, Awake - Psychiatric Exam Psychiatric exam: Normal Affect, Normal Mood - Skin Skin Exam: Dry, Intact, Normal Color, Warm Assessment and Plan - Assessment and Plan (Free Text) Assessment: 85 year old male with history of Anemia requiring transfusion 04/2015 on scheduled outpatient Iron infusions with Dr. Jackson, [place] complicated by CAD s/p 3 vessel CABG 2012 previously on Plavix prior to admission 04/2016, moderate aortic stenosis, ischemic cardiomyopathy 35-40%, CKD Stage 3, Hypertension, Hyperlipidemia presenting with weakness and blood in stool. Recent discharge for pneumonia to rehabilitation center 04/30/16. Acute treatment of acute anemia , FOBT positive, and hypotension. Prior EGD and colonoscopy 04/2015 showed gastric AVM, normal colon, and internal hemorrhoids. Acute on chronic normocytic anemia POD 1 EGD with PUD GI Bleed Multidrug resistent Proteus UTI Plan: >received 2 units pRBCs 05/22 >EGD 05/23 showing LA Grade D esophagitis, gastric ulcers, large duodenal bulb/ sweep ulcer with stigmata of recent bleed- pigmented spot >will benefit from EGD ulcer surveillance in 4-8 weeks >biopsies pending to assess for H pylori >stat H/H >T&S, ordered 2 U pRBCs >clear liquids, made NPO >started PPI bolus and drip >close monitoring, first bowel movement since admission >monitor hemodynamic stability, await CBC >if recurrent hematochezia and/or hemodynamic instability, will require urgent EGD <Hailey Negrete MD - Last Filed: 05/24/16 11:52> Objective - Vital Signs/Intake and Output Vital Signs (last 24 hours): Temp Pulse Resp BP Pulse Ox 97.1 F L 75 12 115/58 L 100 05/24/16 08:00 05/24/16 08:22 05/24/16 08:22 05/24/16 08:22 05/24/16 08:22 Intake and Output: 05/24/16 05/24/16 06:59 18:59 Intake Total 1400 200 Output Total 890 125 Balance 510 75 - Medications Medications: Current Medications Brimonidine Tartrate (Alphagan 0.2% Opht) 0 ml OU TID [facility] Last Admin: 05/24/16 09:45 Dose: 1 drop Dorzolamide HCl (Trusopt) 0 ml OU TID [facility] Last Admin: 05/24/16 09:45 Dose: 1 drop Guaifenesin (Mucinex La) 600 mg PO BID [facility] Last Admin: 05/24/16 09:43 Dose: 600 mg Folic Acid 1 mg/ Sodium (Chloride) 100.2 mls @ 60 mls/hr IV DAILY [facility] Last Admin: 05/24/16 09:43 Dose: 60 mls/hr Sodium Chloride (Sodium Chloride 0.9%) 1,000 mls @ 100 mls/hr IV .Q10H [facility] Last Admin: 05/24/16 07:30 Dose: Not Given Cefepime HCl (Maxipime Iv 1 Gm Premix) 50 mls @ 100 mls/hr IVPB Q24H [facility] Last Admin: 05/23/16 10:20 Dose: 100 mls/hr Vancomycin/Sodium Chloride (Vancocin) 200 mls @ 133.333 mls/hr IVPB Q24H [facility] Last Admin: 05/23/16 10:20 Dose: 133.333 mls/hr Pantoprazole Sodium 80 mg/ (Sodium Chloride) 100 mls @ 1,200 mls/hr IVP ONCE [facility] Pantoprazole Sodium 80 mg/ (Sodium Chloride) 100 mls @ 10 mls/hr IVP .Q10H [facility] PRN Reason: 8 MG/HR Insulin Aspart (Novolog) 0 unit SC ACHS [facility] PRN Reason: Protocol Last Admin: 05/24/16 07:47 Dose: 1 unit Latanoprost (Xalatan Opht) 0 ml OU HS [facility] Last Admin: 05/23/16 21:12 Dose: 2.5 ml Nystatin (Mycostatin Cream) 0 ea TOP TID [facility] Last Admin: 05/24/16 09:46 Dose: 1 applic Pantoprazole Sodium (Protonix Inj) 40 mg IVP Q12H [facility] Last Admin: 05/24/16 02:02 Dose: 40 mg Tamsulosin HCl (Flomax) 0.4 mg PO DAILY [facility] Last Admin: 05/24/16 09:43 Dose: 0.4 mg - Labs Labs: 05/24/16 06:36 05/24/16 06:36 PT 10.8 SECONDS (9.7-12.2) 05/23/16 05:59 INR 1.0 05/23/16 05:59 APTT 25 SECONDS (21-34) 05/23/16 05:59 Attending/Attestation - Attestation I have personally seen and examined this patient.: Yes I have fully participated in the care of the patient.: Yes I have reviewed all pertinent clinical information, including history, physical exam and plan: Yes Notes (Text): 05/24/16 11:42 Patient seen with GI fellow on rounds. This is a 85 year old male with history of anemia requiring transfusion 04/2015 on scheduled outpatient Iron infusions with Dr. Jackson, [place] complicated by CAD s/p 3 vessel CABG 2012 previously on Plavix prior to admission 04/2016, moderate aortic stenosis, ischemic cardiomyopathy 35-40%, CKD Stage 3, Hypertension, Hyperlipidemia presenting with weakness and blood in stool. s/p EGd and push enetroscopy yeaterday that showed clean based gastric ulcers, Grade D esophagitis s/p biopsy, large duodenal bulb ulcer with pigmented spot. H pylori biopsy done. This morning had melanotic stool- old vs new bleed. Will start PPI gtt and make NPO. Will watch clinically. If continues to have melanotic stool or drops significant Hct will do urgent EGD. Close hemodynamic monitoring and transfusion of two units of PRBC. Discussed with stock shipper and staff. - NPO - 2 large bore IV - PPI gtt - Close hemodynamic monitoring - 2 units PRBC - Hypernatremia- correct electrolytes - Will consider second look endoscopy if continues to have rectal bleeding or significant drop in Hb
[2016-05-24] MEDS ORDERED: Pantoprazole 80 MG in Sodium Chloride 0.9% 100 ML IVP SCH ×2 (11:00→12:30)
[2016-05-24] MEDS: Cefepime IV 1 gm in Dextrose 50 ML IVPB SCH (11:30)
[2016-05-24 11:41] LABS: BASO % 0.1 % (0.0-2.0); EOS # 0.2 K/uL (0.0-0.7); EOS % 1.6 % (0.0-4.0); HEMATOCRIT 23.6 % (35.0-51.0); LYMPH # 0.9 K/uL (1.0-4.3); LYMPH % 7.1 % (20.0-40.0); MEAN CELL VOLUME 86.1 fL (80.0-94.0); MEAN CORPUSCULAR HEMOGLOBIN 27.1 pg (27.0-31.0); MEAN CORPUSCULAR HGB CONC 31.4 g/dL (33.0-37.0); MEAN PLATELET VOLUME 7.7 fL (7.2-11.7); MONO # 1.1 K/uL (0.0-0.8); MONO % 8.8 % (0.0-10.0); NRBC % 0.2 % (0.0-2.0); PLATELET COUNT 154 K/uL (130-400); RED CELL DISTRIBUTION WIDTH 17.3 % (11.5-14.5); WHITE BLOOD COUNT 12.1 K/uL (4.8-10.8)
[2016-05-24] MEDS: Vancomycin 1 gm/NS 200 ml 200 ML IVPB SCH (11:58)
[2016-05-24 12:27] LABS: NEUTROPHIL 78 % (50-75); TOTAL CELLS COUNTED 100
[2016-05-24 12:28] LABS: METAMYELOCYTE 1 % (0-0)
[2016-05-24 12:29] LABS: SPHEROCYTES SLIGHT
[2016-05-24] MEDS: Pantoprazole 80 MG in Sodium Chloride 0.9% 100 ML IV SCH ×3 (12:30→23:36)
[2016-05-24] MEDS ORDERED: Lidocaine 1% Inj (20ml) ONE (13:20)
[2016-05-24] MEDS ORDERED: Etomidate 20 mg/10ml Inj IV ONE (13:20)
[2016-05-24] MEDS ORDERED: Sodium Chloride 0.9% 1,000 ML IV ONE (13:23)
[2016-05-24] MEDS ORDERED: Propofol 10 mg/ml Inj (20 ML) ONE (13:32)
[2016-05-24] MEDS ORDERED: ePHEDrine 50 mg/ml Inj ONE (13:37)
--- NOTE | 2016-05-24 14:39 | CP.PCM.PN ---
Subjective - Date & Time of Evaluation Date of Evaluation: 05/24/16 Time of Evaluation: 11:00 - Subjective Subjective: clinically same Objective - Vital Signs/Intake and Output Vital Signs (last 24 hours): Temp Pulse Resp BP Pulse Ox 96.8 F L 91 H 20 106/62 98 05/24/16 14:20 05/24/16 14:20 05/24/16 14:20 05/24/16 14:20 05/24/16 13:07 Intake and Output: 05/24/16 05/24/16 06:59 18:59 Intake Total 1400 1125 Output Total 890 375 Balance 510 750 - Medications Medications: Current Medications Brimonidine Tartrate (Alphagan 0.2% Opht) 0 ml OU TID [facility] Last Admin: 05/24/16 14:27 Dose: 1 drop Dorzolamide HCl (Trusopt) 0 ml OU TID [facility] Last Admin: 05/24/16 14:27 Dose: 1 drop Guaifenesin (Mucinex La) 600 mg PO BID [facility] Last Admin: 05/24/16 09:43 Dose: 600 mg Folic Acid 1 mg/ Sodium (Chloride) 100.2 mls @ 60 mls/hr IV DAILY [facility] Last Admin: 05/24/16 09:43 Dose: 60 mls/hr Sodium Chloride (Sodium Chloride 0.9%) 1,000 mls @ 100 mls/hr IV .Q10H [facility] Last Admin: 05/24/16 07:30 Dose: Not Given Cefepime HCl (Maxipime Iv 1 Gm Premix) 50 mls @ 100 mls/hr IVPB Q24H [facility] Last Admin: 05/24/16 11:30 Dose: 100 mls/hr Vancomycin/Sodium Chloride (Vancocin) 200 mls @ 133.333 mls/hr IVPB Q24H [facility] Last Admin: 05/24/16 11:58 Dose: 133.333 mls/hr Pantoprazole Sodium 80 mg/ (Sodium Chloride) 100 mls @ 10 mls/hr IV .Q10H [facility] Last Admin: 05/24/16 12:30 Dose: 10 mls/hr Insulin Aspart (Novolog) 0 unit SC ACHS [facility] PRN Reason: Protocol Last Admin: 05/24/16 12:00 Dose: Not Given Latanoprost (Xalatan Opht) 0 ml OU HS [facility] Last Admin: 05/23/16 21:12 Dose: 2.5 ml Nystatin (Mycostatin Cream) 0 ea TOP TID [facility] Last Admin: 05/24/16 14:28 Dose: 1 applic Tamsulosin HCl (Flomax) 0.4 mg PO DAILY [facility] Last Admin: 05/24/16 09:43 Dose: 0.4 mg - Labs Labs: 05/24/16 11:30 05/24/16 06:36 PT 10.8 SECONDS (9.7-12.2) 05/23/16 05:59 INR 1.0 05/23/16 05:59 APTT 25 SECONDS (21-34) 05/23/16 05:59 - Constitutional Appears: Well - Head Exam Head Exam: ATRAUMATIC, NORMAL INSPECTION, NORMOCEPHALIC - Eye Exam Eye Exam: EOMI, Normal appearance, PERRL Pupil Exam: NORMAL ACCOMODATION, PERRL - ENT Exam ENT Exam: Mucous Membranes Moist, Normal Exam - Neck Exam Neck Exam: Full ROM, Normal Inspection. absent: Lymphadenopathy - Respiratory Exam Respiratory Exam: Decreased Breath Sounds - Cardiovascular Exam Cardiovascular Exam: REGULAR RHYTHM, +S1, +S2 - GI/Abdominal Exam GI & Abdominal Exam: Soft, Diminished Bowel Sounds - Rectal Exam Rectal Exam: Deferred Assessment and Plan (1) Acute renal failure Status: Acute (2) Anemia Status: Acute (3) BPH (benign prostatic hyperplasia) Status: Acute (4) Bilateral edema of lower extremity Status: Acute (5) DVT prophylaxis Status: Acute (6) Dry gangrene Status: Acute (7) Gastrointestinal hemorrhage Status: Acute (8) Hypochromic microcytic anemia Status: Acute (9) Hypovolemic shock Status: Acute (10) Memory difficulty Status: Acute (11) Paresthesia of both lower extremities Status: Acute (12) Pneumonia Status: Acute (13) CHF (congestive heart failure) Status: Chronic (14) Diabetes mellitus Status: Chronic - Assessment and Plan (Free Text) Plan: f/u with GI f/u with heme/oc f/u with cardiology s/p PRBC f/u with H/H IV NS Mucinex Maxipime Vancocin Novolog Protonix
--- NOTE | 2016-05-24 18:34 | RAD ---
HISTORY: rule out pneumonia COMPARISON: Comparison chest 05/23/2016 FINDINGS: LUNGS: Mild central pulmonary vascular congestive changes are felt to be present. PLEURA: No significant pleural effusion identified, no pneumothorax apparent. CARDIOVASCULAR: Heart is enlarged. Sternotomy wires and CABG clips unchanged. OSSEOUS STRUCTURES: No significant abnormalities. VISUALIZED UPPER ABDOMEN: Normal. OTHER FINDINGS: None. IMPRESSION: Mild central pulmonary vascular congestion.
--- NOTE | 2016-05-24 19:46 | CP.CCUPN ---
CCU Subjective - Physician Review Events Since Last Encounter (Free Text): 05/24/16 19:44 Patient seen and examined in the intensive care unit. 85 year old male with history of Anemia requiring transfusion 04/2015, [place] complicated by CAD s/p 3 vessel CABG 2012 previously on Plavix prior to admission 04/2016, moderate aortic stenosis, ischemic cardiomyopathy 35-40%, CKD Stage 3, Hypertension, Hyperlipidemia presenting with weakness and blood in stool. Recent discharge for pneumonia to rehabilitation center 04/30/16. Acute treatment of acute anemia, FOBT positive, and hypotension. Prior EGD and colonoscopy 04/2015 showed gastric AVM, normal colon, and internal hemorrhoids. Status post EGD yesterday consistent with esophagitis, gastric ulcers, large duodenal bulb/sweep ulcer with stigmata of recent bleed- pigmented spot. Status post transfusion of 2 units packed RBCs on 05/22 Underwent EGD today for hematochezia and blood clots CCU Objective - Vital Signs / Intake & Output Vital Signs (Last 4 hours): Vital Signs - 24 hr 05/23/16 05/23/16 05/23/16 20:00 20:10 20:22 Temperature 97.5 F L Pulse Rate 78 79 80 Respiratory 11 L 16 13 Rate Blood Pressure 107/65 O2 Sat by Pulse 100 99 Oximetry 05/23/16 05/23/16 05/23/16 21:00 21:15 21:22 Temperature Pulse Rate 74 77 77 Respiratory 12 15 12 Rate Blood Pressure 112/63 O2 Sat by Pulse 98 100 Oximetry 05/23/16 05/23/16 05/23/16 22:00 22:02 22:22 Temperature Pulse Rate 74 80 77 Respiratory 11 L 12 11 L Rate Blood Pressure 117/54 L O2 Sat by Pulse 100 100 100 Oximetry 05/23/16 05/23/16 05/23/16 23:00 23:02 23:22 Temperature Pulse Rate 71 70 74 Respiratory 11 L 11 L 11 L Rate Blood Pressure 106/60 O2 Sat by Pulse 100 100 100 Oximetry 05/24/16 05/24/16 05/24/16 00:00 00:06 00:22 Temperature 97.5 F L Pulse Rate 76 71 73 Respiratory 13 11 L 11 L Rate Blood Pressure 107/57 L O2 Sat by Pulse 100 100 99 Oximetry 05/24/16 05/24/16 05/24/16 01:00 01:22 01:41 Temperature Pulse Rate 75 76 75 Respiratory 11 L 12 13 Rate Blood Pressure 120/60 O2 Sat by Pulse 100 99 100 Oximetry 05/24/16 05/24/16 05/24/16 02:00 02:01 02:22 Temperature Pulse Rate 84 80 74 Respiratory 21 13 12 Rate Blood Pressure 116/63 O2 Sat by Pulse 100 100 100 Oximetry 05/24/16 05/24/16 05/24/16 03:00 03:22 03:47 Temperature Pulse Rate 77 84 79 Respiratory 10 L 17 12 Rate Blood Pressure 118/63 O2 Sat by Pulse 100 96 100 Oximetry 05/24/16 05/24/16 05/24/16 04:00 04:02 04:22 Temperature 96.8 F L Pulse Rate 73 71 80 Respiratory 10 L 12 15 Rate Blood Pressure 115/61 O2 Sat by Pulse 100 100 100 Oximetry 05/24/16 05/24/16 05/24/16 05:00 05:17 05:22 Temperature Pulse Rate 73 84 85 Respiratory 14 11 L 15 Rate Blood Pressure 119/56 L O2 Sat by Pulse 100 100 100 Oximetry 05/24/16 05/24/16 05/24/16 06:00 06:03 06:22 Temperature Pulse Rate 73 69 76 Respiratory 10 L 10 L 12 Rate Blood Pressure 126/60 O2 Sat by Pulse 100 100 100 Oximetry 05/24/16 05/24/16 05/24/16 07:00 07:22 08:00 Temperature 97.1 F L Pulse Rate 80 81 Respiratory 11 L 12 Rate Blood Pressure 129/66 O2 Sat by Pulse 100 100 Oximetry 05/24/16 05/24/16 05/24/16 08:17 08:22 09:22 Temperature Pulse Rate 76 75 88 Respiratory 11 L 12 16 Rate Blood Pressure 114/62 115/58 L 124/68 O2 Sat by Pulse 100 100 100 Oximetry 05/24/16 05/24/16 05/24/16 10:23 11:22 12:00 Temperature 98.2 F Pulse Rate 85 92 H Respiratory 12 10 L Rate Blood Pressure 96/55 L 92/65 L O2 Sat by Pulse 93 L 99 Oximetry 05/24/16 05/24/16 05/24/16 12:19 12:22 12:49 Temperature 97.6 F Pulse Rate 87 84 91 H Respiratory 11 L 10 L 20 Rate Blood Pressure 99/49 L 91/52 L 101/47 L O2 Sat by Pulse 100 100 Oximetry 05/24/16 05/24/16 05/24/16 12:52 12:54 13:02 Temperature 97.7 F Pulse Rate 91 H 90 90 Respiratory 12 20 15 Rate Blood Pressure 101/47 L 93/47 L 93/47 L O2 Sat by Pulse 98 83 L Oximetry 05/24/16 05/24/16 05/24/16 13:07 13:09 14:00 Temperature 97.9 F 96.1 F L Pulse Rate 85 91 H 91 H Respiratory 14 20 16 Rate Blood Pressure 103/52 L 103/52 L 91/46 L O2 Sat by Pulse 98 Oximetry 05/24/16 05/24/16 05/24/16 14:01 14:16 14:20 Temperature 96.8 F L Pulse Rate 92 H 88 91 H Respiratory 18 16 20 Rate Blood Pressure 91/46 L 106/62 106/62 O2 Sat by Pulse 100 98 Oximetry 05/24/16 05/24/16 05/24/16 14:31 14:45 14:46 Temperature 97.1 F L Pulse Rate 93 H 91 H 91 H Respiratory 18 20 14 Rate Blood Pressure 113/63 121/69 121/69 O2 Sat by Pulse 98 98 Oximetry 05/24/16 05/24/16 05/24/16 15:00 15:01 15:16 Temperature Pulse Rate 95 H 95 H Respiratory 13 14 Rate Blood Pressure 116/63 113/65 O2 Sat by Pulse 99 99 Oximetry 05/24/16 05/24/16 05/24/16 15:31 15:46 16:00 Temperature 97.5 F L Pulse Rate 95 H 99 H Respiratory 15 16 Rate Blood Pressure 111/62 110/65 O2 Sat by Pulse 97 99 Oximetry 05/24/16 05/24/16 05/24/16 16:19 16:49 17:19 Temperature Pulse Rate 98 H 100 H 109 H Respiratory 13 13 16 Rate Blood Pressure 116/64 117/64 100/52 L O2 Sat by Pulse 100 100 99 Oximetry 05/24/16 05/24/16 05/24/16 17:49 18:19 18:49 Temperature Pulse Rate 105 H 100 H 95 H Respiratory 18 17 12 Rate Blood Pressure 105/60 106/55 L 103/55 L O2 Sat by Pulse 97 97 100 Oximetry 05/24/16 05/24/16 19:00 19:19 Temperature Pulse Rate 97 H 98 H Respiratory 12 12 Rate Blood Pressure 99/54 L O2 Sat by Pulse 98 100 Oximetry Intake and Output (Last 8hrs): Intake & Output 05/24/16 05/24/16 05/24/16 06:59 14:59 22:59 Intake Total 950 1460 110 Output Total 525 375 Balance 425 1085 110 Weight 154 lb Intake: Intake, IV Amount 800 675 110 Right Wrist 800 650 100 Left Hand 25 10 Oral 150 360 Blood Product 425 Apheresis Rbc Cp2d As3 Lr 325 1st Unit [id number] Output: Urine 525 375 Urine, Voided 525 375 Other: # Bowel Movements 1 - Physical Exam Head: Positive for: Atraumatic, Normocephalic Pupils: Positive for: PERRL Extroacular Muscles: Positive for: EOMI Conjunctiva: Positive for: Normal Mouth: Positive for: Moist Mucous Membranes Neck: Positive for: Normal Range of Motion Respiratory/Chest: Positive for: Clear to Auscultation, Good Air Exchange. Negative for: Wheezes Cardiovascular: Positive for: Normal S1, S2 Abdomen: Positive for: Normal Bowel Sounds. Negative for: Tenderness Back: Positive for: Normal Inspection Upper Extremity: Positive for: Normal Inspection Lower Extremity: Positive for: Normal Inspection Neurological: Positive for: CN II-XII Intact Skin: Positive for: Warm, Dry Psychiatric: Positive for: Lethargic - Medications Active Medications: Active Medications Generic Name Dose Route Start Last Admin Trade Name Freq PRN Reason Stop Dose Admin Brimonidine Tartrate 0 ml 05/22/16 14:00 05/24/16 17:25 Alphagan 0.2% Opht OU 1 drop TID [facility] Administration Dorzolamide HCl 0 ml 05/22/16 14:00 05/24/16 17:25 Trusopt OU 1 drop TID [facility] Administration Guaifenesin 600 mg 05/22/16 18:00 05/24/16 17:25 Mucinex La PO Not Given BID [facility] Folic Acid 1 mg/ Sodium 100.2 mls @ 60 mls/hr 05/22/16 15:00 05/24/16 09:43 Chloride IV 60 mls/hr DAILY [facility] Administration Sodium Chloride 1,000 mls @ 100 mls/hr 05/22/16 14:45 05/24/16 16:45 Sodium Chloride 0.9% IV Not Given .Q10H [facility] Vancomycin/Sodium Chloride 200 mls @ 133.333 mls/hr 05/23/16 11:00 05/24/16 11: 58 Vancocin IVPB 133.333 mls/hr Q24H [facility] Administration Pantoprazole Sodium 80 mg/ 100 mls @ 10 mls/hr 05/24/16 12:45 05/24/16 12:30 Sodium Chloride IV 10 mls/hr .Q10H [facility] Administration Imipenem/Cilastatin Sodium 250 100 mls @ 100 mls/hr 05/24/16 19:15 mg/ Sodium Chloride IVPB Q6H [facility] Insulin Aspart 0 unit 05/24/16 07:30 05/24/16 17:24 Novolog SC 4 unit ACHS [facility] Administration Protocol Latanoprost 0 ml 05/22/16 22:00 05/23/16 21:12 Xalatan Opht OU 2.5 ml HS [facility] Administration Nystatin 0 ea 05/22/16 10:15 05/24/16 17:26 Mycostatin Cream TOP 1 applic TID [facility] Administration Tamsulosin HCl 0.4 mg 05/22/16 10:00 05/24/16 09:43 Flomax PO 0.4 mg DAILY [facility] Administration - Patient Studies Lab Studies: Microbiology Studies 05/22/16 02:31 MRSA Culture (Admit) - Final Nose MRSA DETECTED Lab Studies 05/24/16 05/24/16 05/24/16 Range/Units 17:09 11:41 11:30 WBC 12.1 H (4.8-10.8) K/uL RBC 2.73 L (4.40-5.90) Mil/uL Hgb 7.4 L (12.0-18.0) g/dL Hct 23.6 L (35.0-51.0) % MCV 86.1 (80.0-94.0) fL MCH 27.1 (27.0-31.0) pg MCHC 31.4 L (33.0-37.0) g/dL RDW 17.3 H (11.5-14.5) % Plt Count 154 (130-400) K/uL MPV 7.7 (7.2-11.7) fL Neut % (Auto) 82.4 H (50.0-75.0) % Lymph % (Auto) 7.1 L (20.0-40.0) % [place] % (Auto) 8.8 (0.0-10.0) % Eos % (Auto) 1.6 (0.0-4.0) % Baso % (Auto) 0.1 (0.0-2.0) % Neut # 10.0 H (1.8-7.0) K/uL Lymph # 0.9 L (1.0-4.3) K/uL [place] # 1.1 H (0.0-0.8) K/uL Eos # 0.2 (0.0-0.7) K/uL Baso # 0.0 (0.0-0.2) K/uL Neutrophils % (Manual) 78 H (50-75) % Band Neutrophils % 3 H (0-2) % Lymphocytes % (Manual) 11 L (20-40) % Monocytes % (Manual) 7 (0-10) % Eosinophils % (Manual) (0-4) % Metamyelocytes % 1 H (0-0) % Myelocytes % (0-0) % Platelet Estimate Normal (NORMAL) Large Platelets Hypochromasia (manual) Slight Poikilocytosis (manual Anisocytosis (manual) Slight Microcytosis (manual) Slight Spherocytes Slight Tear Drop Cells Ovalocytes Slight Schistocytes Sodium (132-148) mmol/L Potassium (3.6-5.2) mmol/L Chloride (98-107) mmol/L Carbon Dioxide (22-30) mmol/L Anion Gap (10-20) BUN (9-20) mg/dL Creatinine (0.8-1.5) MG/DL Est GFR ( Amer) Est GFR (Non-Af Amer) POC Glucose (mg/dL) 306 H 239 H (65-110) mg/dL Random Glucose (75-110) mg/dL Calcium (8.6-10.4) mg/dl Phosphorus (2.5-4.5) mg/dL Magnesium (1.6-2.3) mg/dL Iron (49-181) ug/dL TIBC (250-450) ug/dL % Saturation (20-55) Ferritin ng/mL Total Bilirubin (0.2-1.3) mg/dL AST (17-59) U/L ALT (21-72) U/L Alkaline Phosphatase (38-126) U/L Total Protein (6.3-8.3) g/dL Albumin (3.5-5.0) g/dL Globulin (2.2-3.9) gm/dL Albumin/Globulin Ratio (1.0-2.1) Vitamin B12 (239-931) pg/mL Folate ng/mL 05/24/16 05/24/16 05/23/16 Range/Units 07:18 06:36 23:59 WBC 10.6 (4.8-10.8) K/uL RBC 2.96 L (4.40-5.90) Mil/uL Hgb 8.2 L (12.0-18.0) g/dL Hct 25.4 L (35.0-51.0) % MCV 85.9 (80.0-94.0) fL MCH 27.7 (27.0-31.0) pg MCHC 32.3 L (33.0-37.0) g/dL RDW 17.4 H (11.5-14.5) % Plt Count 170 (130-400) K/uL MPV 8.0 (7.2-11.7) fL Neut % (Auto) 84.2 H (50.0-75.0) % Lymph % (Auto) 5.6 L (20.0-40.0) % Kent % (Auto) 8.6 (0.0-10.0) % Eos % (Auto) 1.3 (0.0-4.0) % Baso % (Auto) 0.3 (0.0-2.0) % Neut # 8.9 H (1.8-7.0) K/uL Lymph # 0.6 L (1.0-4.3) K/uL Kent # 0.9 H (0.0-0.8) K/uL Eos # 0.1 (0.0-0.7) K/uL Baso # 0.0 (0.0-0.2) K/uL Neutrophils % (Manual) 80 H (50-75) % Band Neutrophils % 7 H (0-2) % Lymphocytes % (Manual) 5 L (20-40) % Monocytes % (Manual) 5 (0-10) % Eosinophils % (Manual) 1 (0-4) % Metamyelocytes % 1 H (0-0) % Myelocytes % 1 H (0-0) % Platelet Estimate Normal (NORMAL) Large Platelets Present Hypochromasia (manual) Slight Poikilocytosis (manual Slight Anisocytosis (manual) Slight Microcytosis (manual) Spherocytes Slight Tear Drop Cells Slight Ovalocytes Slight Schistocytes Slight Sodium 150 H (132-148) mmol/L Potassium 3.6 (3.6-5.2) mmol/L Chloride 118 H (98-107) mmol/L Carbon Dioxide 21 L (22-30) mmol/L Anion Gap 15 (10-20) BUN 57 H (9-20) mg/dL Creatinine 1.7 H (0.8-1.5) MG/DL Est GFR ( Amer) 47 Est GFR (Non-Af Amer) 39 POC Glucose (mg/dL) 163 H 189 H (65-110) mg/dL Random Glucose 127 H (75-110) mg/dL Calcium 7.3 L (8.6-10.4) mg/dl Phosphorus 2.8 (2.5-4.5) mg/dL Magnesium 2.2 (1.6-2.3) mg/dL Iron 26 L (49-181) ug/dL TIBC 170 L (250-450) ug/dL % Saturation 15 L (20-55) Ferritin 214.0 ng/mL Total Bilirubin 0.2 (0.2-1.3) mg/dL AST 12 L (17-59) U/L ALT 30 (21-72) U/L Alkaline Phosphatase 55 (38-126) U/L Total Protein 4.7 L (6.3-8.3) g/dL Albumin 1.9 L (3.5-5.0) g/dL Globulin 2.7 (2.2-3.9) gm/dL Albumin/Globulin Ratio 0.7 L (1.0-2.1) Vitamin B12 > 1000 H (239-931) pg/mL Folate > 20.0 ng/mL Laboratory Results - last 24 hr 05/23/16 05/24/16 05/24/16 23:59 06:36 07:18 WBC 10.6 RBC 2.96 L Hgb 8.2 L Hct 25.4 L MCV 85.9 MCH 27.7 MCHC 32.3 L RDW 17.4 H Plt Count 170 MPV 8.0 Neut % (Auto) 84.2 H Lymph % (Auto) 5.6 L Kent % (Auto) 8.6 Eos % (Auto) 1.3 Baso % (Auto) 0.3 Neut # 8.9 H Lymph # 0.6 L Kent # 0.9 H Eos # 0.1 Baso # 0.0 Neutrophils % (Manual) 80 H Band Neutrophils % 7 H Lymphocytes % (Manual) 5 L Monocytes % (Manual) 5 Eosinophils % (Manual) 1 Metamyelocytes % 1 H Myelocytes % 1 H Platelet Estimate Normal Large Platelets Present Hypochromasia (manual) Slight Poikilocytosis (manual Slight Anisocytosis (manual) Slight Microcytosis (manual) Spherocytes Slight Tear Drop Cells Slight Ovalocytes Slight Schistocytes Slight Sodium 150 H Potassium 3.6 Chloride 118 H Carbon Dioxide 21 L Anion Gap 15 BUN 57 H Creatinine 1.7 H Est GFR ( Amer) 47 Est GFR (Non-Af Amer) 39 POC Glucose (mg/dL) 189 H 163 H Random Glucose 127 H Calcium 7.3 L Phosphorus 2.8 Magnesium 2.2 Iron 26 L TIBC 170 L % Saturation 15 L Ferritin 214.0 Total Bilirubin 0.2 AST 12 L ALT 30 Alkaline Phosphatase 55 Total Protein 4.7 L Albumin 1.9 L Globulin 2.7 Albumin/Globulin Ratio 0.7 L Vitamin B12 > 1000 H Folate > 20.0 05/24/16 05/24/16 05/24/16 11:30 11:41 17:09 WBC 12.1 H RBC 2.73 L Hgb 7.4 L Hct 23.6 L MCV 86.1 MCH 27.1 MCHC 31.4 L RDW 17.3 H Plt Count 154 MPV 7.7 Neut % (Auto) 82.4 H Lymph % (Auto) 7.1 L Kent % (Auto) 8.8 Eos % (Auto) 1.6 Baso % (Auto) 0.1 Neut # 10.0 H Lymph # 0.9 L Kent # 1.1 H Eos # 0.2 Baso # 0.0 Neutrophils % (Manual) 78 H Band Neutrophils % 3 H Lymphocytes % (Manual) 11 L Monocytes % (Manual) 7 Eosinophils % (Manual) Metamyelocytes % 1 H Myelocytes % Platelet Estimate Normal Large Platelets Hypochromasia (manual) Slight Poikilocytosis (manual Anisocytosis (manual) Slight Microcytosis (manual) Slight Spherocytes Slight Tear Drop Cells Ovalocytes Slight Schistocytes Sodium Potassium Chloride Carbon Dioxide Anion Gap BUN Creatinine Est GFR ( Amer) Est GFR (Non-Af Amer) POC Glucose (mg/dL) 239 H 306 H Random Glucose Calcium Phosphorus Magnesium Iron TIBC % Saturation Ferritin Total Bilirubin AST ALT Alkaline Phosphatase Total Protein Albumin Globulin Albumin/Globulin Ratio Vitamin B12 Folate Fingerstick Blood Sugar Results: 239 Review of Systems - Review of Systems All systems: reviewed and no additional remarkable complaints except (Rectal bleed and hematochezia) Critical Care Progress Note - Nutrition Nutrition: Nutrition Category Date Time Status NPO Diet [DIET] Diets 05/24/16 Lunch Active Assessment/Plan (1) Gastrointestinal hemorrhage Current Visit: Yes Status: Acute Comment: Status post EGD with hemostasis today for rectal bleeding Transfusions and RBCs Follow-up H&H Continue ICU monitoring (2) Acute renal failure Current Visit: No Status: Acute
[2016-05-24] MEDS: Latanoprost 2.5 ml Opht Soln OU SCH (21:10)
[2016-05-24 21:21] LABS: HEMATOCRIT 26.9 % (35.0-51.0); MEAN CELL VOLUME 86.6 fL (80.0-94.0); MEAN CORPUSCULAR HEMOGLOBIN 27.9 pg (27.0-31.0); MEAN CORPUSCULAR HGB CONC 32.2 g/dL (33.0-37.0); MEAN PLATELET VOLUME 7.2 fL (7.2-11.7); RED CELL DISTRIBUTION WIDTH 17.4 % (11.5-14.5); WHITE BLOOD COUNT 13.4 K/uL (4.8-10.8)
[2016-05-25] MEDS: Sodium Chloride 0.9% 1,000 ML IV SCH (03:11)
[2016-05-25] MEDS: Pantoprazole 80 MG in Sodium Chloride 0.9% 100 ML IV SCH ×4 (06:55→19:09)
[2016-05-25 07:28] LABS: BASO # 0.1 K/uL (0.0-0.2); BASO % 0.5 % (0.0-2.0); EOS # 0.2 K/uL (0.0-0.7); EOS % 1.4 % (0.0-4.0); HEMATOCRIT 27.3 % (35.0-51.0); LYMPH % 7.2 % (20.0-40.0); MEAN CELL VOLUME 87.8 fL (80.0-94.0); MEAN CORPUSCULAR HEMOGLOBIN 28.2 pg (27.0-31.0); MEAN CORPUSCULAR HGB CONC 32.1 g/dL (33.0-37.0); MEAN PLATELET VOLUME 7.5 fL (7.2-11.7); MONO # 1.4 K/uL (0.0-0.8); MONO % 9.9 % (0.0-10.0); NRBC % 0.1 % (0.0-2.0); PLATELET COUNT 152 K/uL (130-400); RED CELL DISTRIBUTION WIDTH 17.7 % (11.5-14.5); WHITE BLOOD COUNT 13.8 K/uL (4.8-10.8)
[2016-05-25] MEDS: (Novolog) Insulin Aspart, Recombinant 100 u/ml 10 ml vial SC SCH ×3 (07:59→19:06)
[2016-05-25 08:02] LABS: POTASSIUM 3.4 mmol/L (3.6-5.2)
[2016-05-25 08:04] LABS: ALB/GLOB RATIO 0.7 (1.0-2.1); BILIRUBIN,TOTAL 0.3 mg/dL (0.2-1.3); TOTAL PROTEIN 4.7 g/dL (6.3-8.3)
[2016-05-25 08:05] LABS: CALCIUM 7.1 mg/dl (8.6-10.4); PHOSPHOROUS 2.2 mg/dL (2.5-4.5)
[2016-05-25] MEDS ORDERED: Potassium Phosphate 15 MMOLE in Sodium Chloride 0.9% 250 ML IV ONE (09:45)
[2016-05-25 09:48] LABS: NEUTROPHIL 76 % (50-75); TOTAL CELLS COUNTED 100
[2016-05-25 09:50] LABS: SPHEROCYTES SLIGHT
[2016-05-25] MEDS ORDERED: Ferric Sodium Gluconat Complex 62.5 mg/5 ml Vial IVPB SCH (10:00)
[2016-05-25] MEDS: Dorzolamide 2% Opht Sol 10ml OU SCH ×3 (10:45→19:07)
[2016-05-25] MEDS: Sodium Chloride 0.45% 1,000 ML IV SCH (10:46)
[2016-05-25] MEDS: Brimonidine 0.2% Opth Sol (5ml) OU SCH ×3 (10:46→19:07)
[2016-05-25] MEDS: Nystatin 100,000 Units/gm Cream(15 gm) TOP SCH ×3 (10:47→19:07)
[2016-05-25] MEDS: guaiFENesin 600 mg ER Tab PO SCH ×2 (10:50→19:08)
--- NOTE | 2016-05-25 11:01 | CP.PCM.PN ---
Subjective - Date & Time of Evaluation Date of Evaluation: 05/25/16 Time of Evaluation: 10:00 - Subjective Subjective: clinically same Objective - Vital Signs/Intake and Output Vital Signs (last 24 hours): Temp Pulse Resp BP Pulse Ox 98.6 F 97 H 14 116/67 98 05/25/16 08:00 05/25/16 08:49 05/25/16 08:49 05/25/16 08:49 05/25/16 08:49 Intake and Output: 05/25/16 05/25/16 06:59 18:59 Intake Total 1320 220 Output Total 775 150 Balance 545 70 - Medications Medications: Current Medications Brimonidine Tartrate (Alphagan 0.2% Opht) 0 ml OU TID [facility] Last Admin: 05/25/16 10:46 Dose: 1 drop Dorzolamide HCl (Trusopt) 0 ml OU TID [facility] Last Admin: 05/25/16 10:45 Dose: 1 drop Ferric Sodium Gluconate Complex (Ferrlecit) 125 mg IVPB DAILY [facility] Stop: 05/27/16 10:01 Guaifenesin (Mucinex La) 600 mg PO BID [facility] Last Admin: 05/25/16 10:50 Dose: Not Given Folic Acid 1 mg/ Sodium (Chloride) 100.2 mls @ 60 mls/hr IV DAILY [facility] Last Admin: 05/25/16 10:46 Dose: 60 mls/hr Pantoprazole Sodium 80 mg/ (Sodium Chloride) 100 mls @ 10 mls/hr IV .Q10H [facility] Last Admin: 05/25/16 06:55 Dose: 10 mls/hr Imipenem/Cilastatin Sodium 250 (mg/ Sodium Chloride) 100 mls @ 100 mls/hr IVPB Q6H [facility] Last Admin: 05/25/16 06:47 Dose: 100 mls/hr Potassium Phosphate 15 mmole/ (Sodium Chloride) 255 mls @ 63 mls/hr IV ONCE ONE Stop: 05/25/16 13:43 Sodium Chloride (Sodium Chloride 0.45%) 1,000 mls @ 60 mls/hr IV .[id number] [facility] Last Admin: 05/25/16 10:46 Dose: 60 mls/hr Insulin Aspart (Novolog) 0 unit SC Q6 [facility] PRN Reason: Protocol Latanoprost (Xalatan Opht) 0 ml OU HS [facility] Last Admin: 05/24/16 21:10 Dose: 2.5 ml Nystatin (Mycostatin Cream) 0 ea TOP TID [facility] Last Admin: 05/25/16 10:47 Dose: 1 applic Tamsulosin HCl (Flomax) 0.4 mg PO DAILY [facility] Last Admin: 05/24/16 09:43 Dose: 0.4 mg - Labs Labs: 05/25/16 07:21 05/25/16 07:47 PT 10.8 SECONDS (9.7-12.2) 05/23/16 05:59 INR 1.0 05/23/16 05:59 APTT 25 SECONDS (21-34) 05/23/16 05:59 Assessment and Plan (1) Acute renal failure Status: Acute (2) Anemia Status: Acute (3) BPH (benign prostatic hyperplasia) Status: Acute (4) Bilateral edema of lower extremity Status: Acute (5) DVT prophylaxis Status: Acute (6) Dry gangrene Status: Acute (7) Gastrointestinal hemorrhage Status: Acute (8) Hypochromic microcytic anemia Status: Acute (9) Hypovolemic shock Status: Acute (10) Memory difficulty Status: Acute (11) Paresthesia of both lower extremities Status: Acute (12) Pneumonia Status: Acute (13) CHF (congestive heart failure) Status: Chronic (14) Diabetes mellitus Status: Chronic - Assessment and Plan (Free Text) Plan: f/u with GI f/u with Heme/onc f/u with ID biopsy pending for H Pylori s/p endoscopy revealed duodenal ulcer with stigmata of recent bleed with protrubent vessels in duodenal sweep s/p gold probe coagulation and epinephrine [id number] injection IV NS Mucinex protonix Imipenam/cilastatin Novolog continue monitor H/H
--- NOTE | 2016-05-25 11:07 | CON ---
DATE: 05/25/2016 MEDICAL HEMATOLOGY CONSULTATION The patient is currently located in the [facility] ICU in bed 5. REASON FOR HEMATOLOGY CONSULTATION: Symptomatic anemia. HISTORY OF PRESENTING ILLNESS: This is a patient very well known to us. He is an 85-year-old gentle man with multiple medical comorbidities including past medical history significant for CKD, as well a s CAD status post CABG, hypertension, diabetes, CVA, who was recently admitted with symptomatic short ness of breath. On admission, his hemoglobin was noted to be 8.2, which dropped to 7.4, and he received 1 packed unit of blood cells with an appropriate response of hemoglobin to 8.6. He does have known past medical h istory significant for gastric ulcers, as well as duodenitis. The patient was being followed and see n outpatient with Dr. Jackson for history of iron deficiency anemia and was receiving outpatient IV ir on infusions. Most recent hemoglobin in the office was at 11.6, and the patient was improving clinic ally and symptomatically. Currently, he is in the ICU, mildly tachycardic at a heart rate of 104, but otherwise denies any comp laints of shortness of breath, chest pain, and states he has not had any bloody bowel movements. He was taken for upper GI endoscopy on 05/24/2016 at which time findings consisted of diffuse moderate inflammation characterized by erythema in the entire examined stomach. LA grade ____ esophagitis wi th bleeding was found at the GE junction, which was coagulated for hemostasis using bipolar probe. T hree nonbleeding superficial gastric ulcers with a clean ulcer base were also found in the gastric an trum. Three oozing superficial duodenal ulcers with a flat pigmented spot were found in the duodenal bulb. The largest lesion was 3 mm in dimension and was successfully injected with epinephrine for h emostasis. One oozing superficial duodenal ulcer with oozing hemorrhage was also found in the second part of the duodenum. Coagulation for hemostasis was successful, and diffuse moderate inflammation characterized by erythema and friability were also found in the duodenal bulb, as well as diffuse mod erate inflammation characterized by erosions were found in the second part of the duodenum. The patient was returned to the ICU for ongoing care and Protonix 8 mg per hour IV by continuous infu james for 72 hours has been started, and the patient has been n.p.o. for 24 hours. The patient is on anticoagulation outpatient for his ____, which has been stopped since admission. Currently bedside examination reveals no overt abnormalities. The patient is resting comfortably in bed. PAST MEDICAL HISTORY: As per HPI. PAST SURGICAL HISTORY: CABG. PAST SOCIAL HISTORY: Denies any current toxic habits. Denies smoking, alcohol intake or drug intake . PAST FAMILIAL HISTORY: Noncontributory. PHYSICAL EXAMINATION: VITAL SIGNS: Heart rate 104 bedside. Blood pressure 116/64, respiratory rate 14. GENERAL: AAO x 3, resting comfortably in no overt distress. HEENT: Normocephalic, atraumatic. Pupils reactive bilaterally. LUNGS: Clear to auscultation bilaterally. CARDIOVASCULAR: S1, S2 normal. ABDOMEN: Soft, nontender, nondistended. EXTREMITIES: No cyanosis or clubbing noted. LABORATORY DATA: White blood cell count today 13.8, hemoglobin 8.8, hematocrit 27.3, MCV of 87.8, pl atelet count 152,000. PT 10.8, PTT 25. INR 1.0. Sodium on 05/24 was at 150, chloride 118, bicarb 21 , BUN 57, creatinine 0.7, glucose 127. Calcium 7.3. Iron studies on 05/24 - iron 26, TIBC 170, iron saturation 15%. AST 12, ALT 30, total bili 0.2, albumin low at 1.9. ASSESSMENT AND PLAN: In summary, this is an 85-year-old gentleman with multiple medical comorbiditie s including history of erosive esophagitis, as well as gastric ulcers and duodenal ulcers with a hist ory of symptomatic iron deficiency anemia, status post packed red blood cell transfusion in the past, as well as outpatient IV iron infusions. Currently, admitted with a diagnosis of symptomatic anemia , status post transfusion, as well as EGD revealing the same findings as in the past including multip le ulcers that were oozing with hemorrhage that were cauterized and controlled. Currently, hemoglobi n has responded appropriately to packed red blood cell transfusion. Most likely, this is consistent with his history of iron deficiency anemia from gastrointestinal bleed. We will administer Ferrlecit 125 mg IV daily for 3 days while he is inpatient for ongoing iron replacement therapy. We will cont inue to follow his clinical course with you. Thank you kindly for this consultation. Wilder Choi MD cc: [phone] TT: 05/25/2016 11:07:10 Confirmation # [id number] Dictation # [id number]
--- NOTE | 2016-05-25 11:23 | CP.PCM.PN ---
<Denae Chakraborty - Last Filed: 05/25/16 11:20> Subjective - Date & Time of Evaluation Date of Evaluation: 05/25/16 Time of Evaluation: 11:20 - Subjective Subjective: Gastroenterology Fellow/PGY4 Progress Note Patient denies abdominal pain. Nurse denies melena or hematochezia overnight. A 12-point review of systems negative except for above. Objective - Vital Signs/Intake and Output Vital Signs (last 24 hours): Temp Pulse Resp BP Pulse Ox 98.6 F 97 H 14 116/67 98 05/25/16 08:00 05/25/16 08:49 05/25/16 08:49 05/25/16 08:49 05/25/16 08:49 Intake and Output: 05/25/16 05/25/16 06:59 18:59 Intake Total 1320 220 Output Total 775 150 Balance 545 70 - Medications Medications: Current Medications Brimonidine Tartrate (Alphagan 0.2% Opht) 0 ml OU TID [facility] Last Admin: 05/25/16 10:46 Dose: 1 drop Dorzolamide HCl (Trusopt) 0 ml OU TID [facility] Last Admin: 05/25/16 10:45 Dose: 1 drop Ferric Sodium Gluconate Complex (Ferrlecit) 125 mg IVPB DAILY [facility] Stop: 05/27/16 10:01 Guaifenesin (Mucinex La) 600 mg PO BID [facility] Last Admin: 05/25/16 10:50 Dose: Not Given Folic Acid 1 mg/ Sodium (Chloride) 100.2 mls @ 60 mls/hr IV DAILY [facility] Last Admin: 05/25/16 10:46 Dose: 60 mls/hr Pantoprazole Sodium 80 mg/ (Sodium Chloride) 100 mls @ 10 mls/hr IV .Q10H [facility] Last Admin: 05/25/16 06:55 Dose: 10 mls/hr Imipenem/Cilastatin Sodium 250 (mg/ Sodium Chloride) 100 mls @ 100 mls/hr IVPB Q6H [facility] Last Admin: 05/25/16 06:47 Dose: 100 mls/hr Potassium Phosphate 15 mmole/ (Sodium Chloride) 255 mls @ 63 mls/hr IV ONCE ONE Stop: 05/25/16 13:43 Sodium Chloride (Sodium Chloride 0.45%) 1,000 mls @ 60 mls/hr IV .[id number] [facility] Last Admin: 05/25/16 10:46 Dose: 60 mls/hr Insulin Aspart (Novolog) 0 unit SC Q6 [facility] PRN Reason: Protocol Latanoprost (Xalatan Opht) 0 ml OU HS [facility] Last Admin: 05/24/16 21:10 Dose: 2.5 ml Nystatin (Mycostatin Cream) 0 ea TOP TID [facility] Last Admin: 05/25/16 10:47 Dose: 1 applic Tamsulosin HCl (Flomax) 0.4 mg PO DAILY [facility] Last Admin: 05/24/16 09:43 Dose: 0.4 mg - Labs Labs: 05/25/16 07:21 05/25/16 07:47 PT 10.8 SECONDS (9.7-12.2) 05/23/16 05:59 INR 1.0 05/23/16 05:59 APTT 25 SECONDS (21-34) 05/23/16 05:59 - Constitutional Appears: Non-toxic, No Acute Distress - Head Exam Head Exam: ATRAUMATIC, NORMOCEPHALIC - Eye Exam Eye Exam: EOMI, PERRL Pupil Exam: PERRL. absent: Miosis, Mydriatic - ENT Exam ENT Exam: Mucous Membranes Moist, Normal Oropharynx - Neck Exam Neck Exam: Full ROM, Normal Inspection - Respiratory Exam Respiratory Exam: Clear to Ausculation Bilateral. absent: Rales, Rhonchi, Wheezes - Cardiovascular Exam Cardiovascular Exam: RRR, +S1, +S2. absent: Gallop, Rubs - GI/Abdominal Exam GI & Abdominal Exam: Soft, Normal Bowel Sounds. absent: Distended, Firm, Guarding, Rigid, Tenderness, Organomegaly, Rebound - Extremities Exam Extremities Exam: Full ROM. absent: Pedal Edema - Neurological Exam Neurological Exam: Alert, Awake - Psychiatric Exam Psychiatric exam: Normal Affect, Normal Mood - Skin Skin Exam: Dry, Intact, Normal Color, Warm Assessment and Plan - Assessment and Plan (Free Text) Assessment: 85 year old male with history of Anemia requiring transfusion 04/2015 on scheduled outpatient Iron infusions with Dr. Jackson, [place] complicated by CAD s/p 3 vessel CABG 2012 previously on Plavix prior to admission 04/2016, moderate aortic stenosis, ischemic cardiomyopathy 35-40%, CKD Stage 3, Hypertension, Hyperlipidemia presenting with weakness and blood in stool. Recent discharge for pneumonia to rehabilitation center 04/30/16. Acute treatment of acute anemia , FOBT positive, and hypotension. Prior EGD and colonoscopy 04/2015 showed gastric AVM, normal colon, and internal hemorrhoids. Acute on chronic normocytic anemia POD 2 EGD (05/23) with nonbleeding duodenal ulcer, Patrick Class IIc Melena, ABL anemia POD1 (05/24) EGD with duodenal ulcer and stigmata of recent bleed, Patrick Class Ib and IIc Multidrug resistent Proteus UTI Plan: >received 2 units pRBCs 05/22, 1U 05/24 >EGD 05/23 showing LA Grade D esophagitis, gastric ulcers, large duodenal bulb/ sweep ulcer with stigmata of recent bleed- pigmented spot >EGD 05/24- duodenal ulcer with stigmata of recent bleed s/p gold probe coagulation and epinephrine 1:[id number] injection >H/H stable >biopsies pending to assess for H pylori >advance to clear liquids >continue PPI drip for tot al of 72 hours >continue to monitor for signs of recurrent GI bleed >will benefit from EGD ulcer surveillance in 4-8 weeks <Nitesh Negrete MDnew ringgold - Last Filed: 05/25/16 13:23> Objective - Vital Signs/Intake and Output Vital Signs (last 24 hours): Temp Pulse Resp BP Pulse Ox 98.6 F 97 H 14 116/67 98 05/25/16 08:00 05/25/16 08:49 05/25/16 08:49 05/25/16 08:49 05/25/16 08:49 Intake and Output: 05/25/16 05/25/16 06:59 18:59 Intake Total 1320 220 Output Total 775 150 Balance 545 70 - Medications Medications: Current Medications Brimonidine Tartrate (Alphagan 0.2% Opht) 0 ml OU TID [facility] Last Admin: 05/25/16 10:46 Dose: 1 drop Dorzolamide HCl (Trusopt) 0 ml OU TID [facility] Last Admin: 05/25/16 10:45 Dose: 1 drop Ferric Sodium Gluconate Complex (Ferrlecit) 125 mg IVPB DAILY [facility] Stop: 05/27/16 10:01 Last Admin: 05/25/16 12:34 Dose: 125 mg Guaifenesin (Mucinex La) 600 mg PO BID [facility] Last Admin: 05/25/16 10:50 Dose: Not Given Folic Acid 1 mg/ Sodium (Chloride) 100.2 mls @ 60 mls/hr IV DAILY [facility] Last Admin: 05/25/16 10:46 Dose: 60 mls/hr Pantoprazole Sodium 80 mg/ (Sodium Chloride) 100 mls @ 10 mls/hr IV .Q10H [facility] Last Admin: 05/25/16 06:55 Dose: 10 mls/hr Imipenem/Cilastatin Sodium 250 (mg/ Sodium Chloride) 100 mls @ 100 mls/hr IVPB Q6H [facility] Last Admin: 05/25/16 06:47 Dose: 100 mls/hr Potassium Phosphate 15 mmole/ (Sodium Chloride) 255 mls @ 63 mls/hr IV ONCE ONE Stop: 05/25/16 13:43 Sodium Chloride (Sodium Chloride 0.45%) 1,000 mls @ 60 mls/hr IV .[id number] [facility] Last Admin: 05/25/16 10:46 Dose: 60 mls/hr Insulin Aspart (Novolog) 0 unit SC Q6 [facility] PRN Reason: Protocol Last Admin: 05/25/16 12:34 Dose: 2 unit Latanoprost (Xalatan Opht) 0 ml OU HS [facility] Last Admin: 05/24/16 21:10 Dose: 2.5 ml Nystatin (Mycostatin Cream) 0 ea TOP TID [facility] Last Admin: 05/25/16 10:47 Dose: 1 applic Tamsulosin HCl (Flomax) 0.4 mg PO DAILY [facility] Last Admin: 05/24/16 09:43 Dose: 0.4 mg - Labs Labs: 05/25/16 07:21 05/25/16 07:47 PT 10.8 SECONDS (9.7-12.2) 05/23/16 05:59 INR 1.0 05/23/16 05:59 APTT 25 SECONDS (21-34) 05/23/16 05:59 Attending/Attestation - Attestation I have personally seen and examined this patient.: Yes I have fully participated in the care of the patient.: Yes I have reviewed all pertinent clinical information, including history, physical exam and plan: Yes Notes (Text): 05/25/16 13:18 Patient seen with GI fellow on rounds this am. This is a 85 year old male with history of anemia requiring transfusions in the past and iron infusions, CAD s/ p 3 vessel CABG 2012 previously on Plavix prior to admission, Moderate aortic stenosis, ischemic cardiomyopathy 35-40%, CKD Stage 3, Hypertension, Hyperlipidemia presenting with weakness and blood in stool. EGD done on 05/23 showed LA Grade D esophagitis, gastric ulcers, large duodenal bulb/sweep ulcer with stigmata of recent bleed- pigmented spot. Subsequently dropped Hb requiring 2 units PRBC with large melena and hemodynamic instability on 05/24. second look endoscopy revealed duodenal ulcer with stigmata of recent bleed with protrubent vessels in duodenal sweep s/p gold probe coagulation and epinephrine 1:13264 injection. Hemostasis achieved successfully. H/Hct stable. No further episodes of melena in 24 hours. Advance to clear liquids and continue PPI drip for total of 72 hours. Follow H pylori biopsies. Will require repeat EGD in 8-12 weeks. Discussed with , son and daughter at bedside in length.
[2016-05-25] MEDS: Ferric Sodium Gluconat Complex 62.5 mg/5 ml Vial IVPB SCH (12:34)
--- NOTE | 2016-05-25 16:34 | CP.CCUPN ---
CCU Subjective - Physician Review Events Since Last Encounter (Free Text): 05/25/16 16:34 patient is clinically stable, no acute changes since yesterday's EGD. CCU Objective - Vital Signs / Intake & Output Vital Signs (Last 4 hours): Vital Signs Pulse Resp BP Pulse Ox 05/25/16 15:46 89 15 92/56 L 98 05/25/16 14:46 89 13 108/61 98 05/25/16 13:19 95 H 15 108/57 L 99 05/25/16 12:49 101 H 16 100/52 L 94 L Intake and Output (Last 8hrs): Intake & Output 05/25/16 05/25/16 05/25/16 06:59 14:59 22:59 Intake Total 880 780 73 Output Total 475 150 Balance 405 630 73 Weight 155 lb Intake: Intake, IV Amount 880 780 73 Right Wrist 600 40 10 Left Hand 200 700 63 Right Antecubital 60 Left Forearm 20 40 Output: Urine 475 150 Urine, Voided 475 150 - Physical Exam Head: Positive for: Atraumatic, Normocephalic Pupils: Positive for: PERRL Extroacular Muscles: Positive for: EOMI Conjunctiva: Positive for: Normal Mouth: Positive for: Moist Mucous Membranes Neck: Positive for: Normal Range of Motion Respiratory/Chest: Positive for: Clear to Auscultation, Good Air Exchange. Negative for: Wheezes Cardiovascular: Positive for: Normal S1, S2 Abdomen: Positive for: Normal Bowel Sounds. Negative for: Tenderness Back: Positive for: Normal Inspection Upper Extremity: Positive for: Normal Inspection Lower Extremity: Positive for: Normal Inspection Neurological: Positive for: CN II-XII Intact Skin: Positive for: Warm, Dry Psychiatric: Positive for: Lethargic - Medications Active Medications: Active Medications Generic Name Dose Route Start Last Admin Trade Name Freq PRN Reason Stop Dose Admin Brimonidine Tartrate 0 ml 05/22/16 14:00 05/25/16 14:33 Alphagan 0.2% Opht OU 1 drop TID LASHA Administration Dorzolamide HCl 0 ml 05/22/16 14:00 05/25/16 14:34 Trusopt OU 1 drop TID LASHA Administration Ferric Sodium Gluconate Complex 125 mg 05/25/16 10:00 05/25/16 12:34 Ferrlecit IVPB 05/27/16 10:01 125 mg DAILY LASHA Administration Guaifenesin 600 mg 05/22/16 18:00 05/25/16 10:50 Mucinex La PO Not Given BID LASHA Folic Acid 1 mg/ Sodium 100.2 mls @ 60 mls/hr 05/22/16 15:00 05/25/16 10:46 Chloride IV 60 mls/hr DAILY LASHA Administration Pantoprazole Sodium 80 mg/ 100 mls @ 10 mls/hr 05/24/16 12:45 05/25/16 09:00 Sodium Chloride IV Not Given .Q10H LASHA Imipenem/Cilastatin Sodium 250 100 mls @ 100 mls/hr 05/24/16 19:15 05/25/16 14: 33 mg/ Sodium Chloride IVPB 100 mls/hr Q6H LASHA Administration Sodium Chloride 1,000 mls @ 60 mls/hr 05/25/16 10:00 05/25/16 10:46 Sodium Chloride 0.45% IV 60 mls/hr .[id number] LASHA Administration Insulin Aspart 0 unit 05/25/16 12:00 05/25/16 12:34 Novolog SC 2 unit Q6 LASHA Administration Protocol Latanoprost 0 ml 05/22/16 22:00 05/24/16 21:10 Xalatan Opht OU 2.5 ml HS LASHA Administration Nystatin 0 ea 05/22/16 10:15 05/25/16 14:35 Mycostatin Cream TOP 1 applic TID LASHA Administration Tamsulosin HCl 0.4 mg 05/22/16 10:00 05/24/16 09:43 Flomax PO 0.4 mg DAILY LASHA Administration - Patient Studies Lab Studies: Microbiology Studies 05/22/16 02:31 MRSA Culture (Admit) - Final Nose MRSA DETECTED Lab Studies 05/25/16 05/25/16 05/25/16 Range/Units 11:52 07:47 07:35 WBC (4.8-10.8) K/uL RBC (4.40-5.90) Mil/uL Hgb (12.0-18.0) g/dL Hct (35.0-51.0) % MCV (80.0-94.0) fL MCH (27.0-31.0) pg MCHC (33.0-37.0) g/dL RDW (11.5-14.5) % Plt Count (130-400) K/uL MPV (7.2-11.7) fL Neut % (Auto) (50.0-75.0) % Lymph % (Auto) (20.0-40.0) % Gregory % (Auto) (0.0-10.0) % Eos % (Auto) (0.0-4.0) % Baso % (Auto) (0.0-2.0) % Neut # (1.8-7.0) K/uL Lymph # (1.0-4.3) K/uL Gregory # (0.0-0.8) K/uL Eos # (0.0-0.7) K/uL Baso # (0.0-0.2) K/uL Neutrophils % (Manual) (50-75) % Band Neutrophils % (0-2) % Lymphocytes % (Manual) (20-40) % Monocytes % (Manual) (0-10) % Platelet Estimate (NORMAL) Polychromasia Hypochromasia (manual) Poikilocytosis (manual Anisocytosis (manual) Microcytosis (manual) Macrocytosis (manual) Spherocytes Ovalocytes Sodium 152 H (132-148) mmol/L Potassium 3.4 L (3.6-5.2) mmol/L Chloride 122 H (98-107) mmol/L Carbon Dioxide 19 L (22-30) mmol/L Anion Gap 14 (10-20) BUN 35 H (9-20) mg/dL Creatinine 1.5 (0.8-1.5) MG/DL Est GFR ( Amer) 54 Est GFR (Non-Af Amer) 45 POC Glucose (mg/dL) 183 H 221 H (65-110) mg/dL Random Glucose 172 H (75-110) mg/dL Calcium 7.1 L (8.6-10.4) mg/dl Phosphorus 2.2 L (2.5-4.5) mg/dL Magnesium 2.0 (1.6-2.3) mg/dL Total Bilirubin 0.3 (0.2-1.3) mg/dL AST 16 L D (17-59) U/L ALT 33 (21-72) U/L Alkaline Phosphatase 57 (38-126) U/L Total Protein 4.7 L (6.3-8.3) g/dL Albumin 1.9 L (3.5-5.0) g/dL Globulin 2.8 (2.2-3.9) gm/dL Albumin/Globulin Ratio 0.7 L (1.0-2.1) Random Vancomycin ug/mL Blood Type Antibody Screen 05/25/16 05/25/16 05/25/16 Range/Units 07:21 07:10 06:28 WBC 13.8 H (4.8-10.8) K/uL RBC 3.11 L (4.40-5.90) Mil/uL Hgb 8.8 L (12.0-18.0) g/dL Hct 27.3 L (35.0-51.0) % MCV 87.8 (80.0-94.0) fL MCH 28.2 (27.0-31.0) pg MCHC 32.1 L (33.0-37.0) g/dL RDW 17.7 H (11.5-14.5) % Plt Count 152 (130-400) K/uL MPV 7.5 (7.2-11.7) fL Neut % (Auto) 81.0 H (50.0-75.0) % Lymph % (Auto) 7.2 L (20.0-40.0) % Gregory % (Auto) 9.9 (0.0-10.0) % Eos % (Auto) 1.4 (0.0-4.0) % Baso % (Auto) 0.5 (0.0-2.0) % Neut # 11.2 H (1.8-7.0) K/uL Lymph # 1.0 (1.0-4.3) K/uL Gregory # 1.4 H (0.0-0.8) K/uL Eos # 0.2 (0.0-0.7) K/uL Baso # 0.1 (0.0-0.2) K/uL Neutrophils % (Manual) 76 H (50-75) % Band Neutrophils % 1 (0-2) % Lymphocytes % (Manual) 14 L (20-40) % Monocytes % (Manual) 9 (0-10) % Platelet Estimate Normal (NORMAL) Polychromasia Slight Hypochromasia (manual) Slight Poikilocytosis (manual Slight Anisocytosis (manual) Slight Microcytosis (manual) Slight Macrocytosis (manual) Slight Spherocytes Slight Ovalocytes Slight Sodium (132-148) mmol/L Potassium (3.6-5.2) mmol/L Chloride (98-107) mmol/L Carbon Dioxide (22-30) mmol/L Anion Gap (10-20) BUN (9-20) mg/dL Creatinine (0.8-1.5) MG/DL Est GFR ( Amer) Est GFR (Non-Af Amer) POC Glucose (mg/dL) (65-110) mg/dL Random Glucose (75-110) mg/dL Calcium (8.6-10.4) mg/dl Phosphorus (2.5-4.5) mg/dL Magnesium (1.6-2.3) mg/dL Total Bilirubin (0.2-1.3) mg/dL AST (17-59) U/L ALT (21-72) U/L Alkaline Phosphatase (38-126) U/L Total Protein (6.3-8.3) g/dL Albumin (3.5-5.0) g/dL Globulin (2.2-3.9) gm/dL Albumin/Globulin Ratio (1.0-2.1) Random Vancomycin 14.75 ug/mL Blood Type O POSITIVE Antibody Screen Negative 05/24/16 05/24/16 05/24/16 Range/Units 21:28 21:19 17:09 WBC 13.4 H (4.8-10.8) K/uL RBC 3.10 L (4.40-5.90) Mil/uL Hgb 8.6 L (12.0-18.0) g/dL Hct 26.9 L (35.0-51.0) % MCV 86.6 (80.0-94.0) fL MCH 27.9 (27.0-31.0) pg MCHC 32.2 L (33.0-37.0) g/dL RDW 17.4 H (11.5-14.5) % Plt Count 146 (130-400) K/uL MPV 7.2 (7.2-11.7) fL Neut % (Auto) (50.0-75.0) % Lymph % (Auto) (20.0-40.0) % Gregory % (Auto) (0.0-10.0) % Eos % (Auto) (0.0-4.0) % Baso % (Auto) (0.0-2.0) % Neut # (1.8-7.0) K/uL Lymph # (1.0-4.3) K/uL Gregory # (0.0-0.8) K/uL Eos # (0.0-0.7) K/uL Baso # (0.0-0.2) K/uL Neutrophils % (Manual) (50-75) % Band Neutrophils % (0-2) % Lymphocytes % (Manual) (20-40) % Monocytes % (Manual) (0-10) % Platelet Estimate (NORMAL) Polychromasia Hypochromasia (manual) Poikilocytosis (manual Anisocytosis (manual) Microcytosis (manual) Macrocytosis (manual) Spherocytes Ovalocytes Sodium (132-148) mmol/L Potassium (3.6-5.2) mmol/L Chloride (98-107) mmol/L Carbon Dioxide (22-30) mmol/L Anion Gap (10-20) BUN (9-20) mg/dL Creatinine (0.8-1.5) MG/DL Est GFR ( Amer) Est GFR (Non-Af Amer) POC Glucose (mg/dL) 233 H 306 H (65-110) mg/dL Random Glucose (75-110) mg/dL Calcium (8.6-10.4) mg/dl Phosphorus (2.5-4.5) mg/dL Magnesium (1.6-2.3) mg/dL Total Bilirubin (0.2-1.3) mg/dL AST (17-59) U/L ALT (21-72) U/L Alkaline Phosphatase (38-126) U/L Total Protein (6.3-8.3) g/dL Albumin (3.5-5.0) g/dL Globulin (2.2-3.9) gm/dL Albumin/Globulin Ratio (1.0-2.1) Random Vancomycin ug/mL Blood Type Antibody Screen Laboratory Results - last 24 hr 05/24/16 05/24/16 05/24/16 17:09 21:19 21:28 WBC 13.4 H RBC 3.10 L Hgb 8.6 L Hct 26.9 L MCV 86.6 MCH 27.9 MCHC 32.2 L RDW 17.4 H Plt Count 146 MPV 7.2 Neut % (Auto) Lymph % (Auto) Gregory % (Auto) Eos % (Auto) Baso % (Auto) Neut # Lymph # Gregory # Eos # Baso # Neutrophils % (Manual) Band Neutrophils % Lymphocytes % (Manual) Monocytes % (Manual) Platelet Estimate Polychromasia Hypochromasia (manual) Poikilocytosis (manual Anisocytosis (manual) Microcytosis (manual) Macrocytosis (manual) Spherocytes Ovalocytes Sodium Potassium Chloride Carbon Dioxide Anion Gap BUN Creatinine Est GFR ( Amer) Est GFR (Non-Af Amer) POC Glucose (mg/dL) 306 H 233 H Random Glucose Calcium Phosphorus Magnesium Total Bilirubin AST ALT Alkaline Phosphatase Total Protein Albumin Globulin Albumin/Globulin Ratio Random Vancomycin Blood Type Antibody Screen 05/25/16 05/25/16 05/25/16 06:28 07:10 07:21 WBC 13.8 H RBC 3.11 L Hgb 8.8 L Hct 27.3 L MCV 87.8 MCH 28.2 MCHC 32.1 L RDW 17.7 H Plt Count 152 MPV 7.5 Neut % (Auto) 81.0 H Lymph % (Auto) 7.2 L Gregory % (Auto) 9.9 Eos % (Auto) 1.4 Baso % (Auto) 0.5 Neut # 11.2 H Lymph # 1.0 Gregory # 1.4 H Eos # 0.2 Baso # 0.1 Neutrophils % (Manual) 76 H Band Neutrophils % 1 Lymphocytes % (Manual) 14 L Monocytes % (Manual) 9 Platelet Estimate Normal Polychromasia Slight Hypochromasia (manual) Slight Poikilocytosis (manual Slight Anisocytosis (manual) Slight Microcytosis (manual) Slight Macrocytosis (manual) Slight Spherocytes Slight Ovalocytes Slight Sodium Potassium Chloride Carbon Dioxide Anion Gap BUN Creatinine Est GFR ( Amer) Est GFR (Non-Af Amer) POC Glucose (mg/dL) Random Glucose Calcium Phosphorus Magnesium Total Bilirubin AST ALT Alkaline Phosphatase Total Protein Albumin Globulin Albumin/Globulin Ratio Random Vancomycin 14.75 Blood Type O POSITIVE Antibody Screen Negative 05/25/16 05/25/16 05/25/16 07:35 07:47 11:52 WBC RBC Hgb Hct MCV MCH MCHC RDW Plt Count MPV Neut % (Auto) Lymph % (Auto) Gregory % (Auto) Eos % (Auto) Baso % (Auto) Neut # Lymph # Gregory # Eos # Baso # Neutrophils % (Manual) Band Neutrophils % Lymphocytes % (Manual) Monocytes % (Manual) Platelet Estimate Polychromasia Hypochromasia (manual) Poikilocytosis (manual Anisocytosis (manual) Microcytosis (manual) Macrocytosis (manual) Spherocytes Ovalocytes Sodium 152 H Potassium 3.4 L Chloride 122 H Carbon Dioxide 19 L Anion Gap 14 BUN 35 H Creatinine 1.5 Est GFR ( Amer) 54 Est GFR (Non-Af Amer) 45 POC Glucose (mg/dL) 221 H 183 H Random Glucose 172 H Calcium 7.1 L Phosphorus 2.2 L Magnesium 2.0 Total Bilirubin 0.3 AST 16 L D ALT 33 Alkaline Phosphatase 57 Total Protein 4.7 L Albumin 1.9 L Globulin 2.8 Albumin/Globulin Ratio 0.7 L Random Vancomycin Blood Type Antibody Screen Fingerstick Blood Sugar Results: 221 Review of Systems - Review of Systems All systems: reviewed and no additional remarkable complaints except Critical Care Progress Note - Nutrition Nutrition: Nutrition Category Date Time Status NPO Diet [DIET] Diets 05/24/16 Lunch Active Assessment/Plan (1) Gastrointestinal hemorrhage Assessment and plan: 85 year old male with history of Anemia requiring transfusion 04/2015, 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 Recent discharge for pneumonia to rehabilitation center 04/30/16. Acute treatment of acute anemia, FOBT positive, and hypotension. Prior EGD and colonoscopy 04/2015 showed gastric AVM, normal colon, and internal hemorrhoids. Status post EGD yesterday consistent with esophagitis, gastric ulcers, large duodenal bulb/sweep ulcer with stigmata of recent bleed- pigmented spot, status post epinephrine injection. Neuro: Alert and oriented 3 Pulm: No acute issues, breathing spontaneously on room air. CV: Hemodynamically stable. Echo (O2/) systolic CHF, EF 39%, severe aortic stenosis. Hem: Anemia from blood loss, H&H stable Renal: Hypochloremic hypernatremia changing normal saline to half normal saline at 60. Endo: DM type II, increased short acting insulin sliding scale for coverage. GI: Nothing by mouth, Protonix drip for recent bleeding ulcers. ID: [id number] with Proteus mirabilis continue Primaxin. Stopped vancomycin. DVT proph - held with the recent bleed, SCDs GI proph - Protonix drip acevedo for strict I/O's during acute illness Code status - full code Crtical Care Time spent 35 minutes Multi-disciplinary rounds were performed with house staff, nursing, speech therapy, respiratory therapy, pharmacy and nutrition with integrated input from the primary team/attending and other consulting services. The documented time is cumulative and includes review of patient data/exams/labs/chart review and examination of the patient on rounds and throughout the day; time is exclusive of any procedures or teaching time. Current Visit: Yes Status: Acute Comment: Status post EGD with hemostasis today for rectal bleeding Transfusions and RBCs Follow-up H&H Continue ICU monitoring
[2016-05-25] MEDS: Latanoprost 2.5 ml Opht Soln OU SCH (21:05)
[2016-05-25] MEDS: guaiFENesin DM 100 mg-10 mg/5 ml UD PO PRN (21:05)
--- NOTE | 2016-05-26 | CARD ---
APPROVED REPORT EKG Measurement Heart [id number] CO [id number] <Conclusion> Sinus rhythm with premature atrial complexes with VPB's Right bundle branch block Left anterior fascicular block Bifascicular block Septal infarct, age undetermined Abnormal ECG
[2016-05-26] MEDS: (Novolog) Insulin Aspart, Recombinant 100 u/ml 10 ml vial SC SCH ×5 (00:35→22:38)
[2016-05-26] MEDS: guaiFENesin DM 100 mg-10 mg/5 ml UD PO PRN (00:43)
[2016-05-26] MEDS: Pantoprazole 80 MG in Sodium Chloride 0.9% 100 ML IV SCH ×2 (04:01→15:30)
[2016-05-26] MEDS: Sodium Chloride 0.45% 1,000 ML IV SCH (04:03)
[2016-05-26 06:41] LABS: BASO % 0.3 % (0.0-2.0); EOS # 0.2 K/uL (0.0-0.7); EOS % 1.6 % (0.0-4.0); HEMATOCRIT 24.3 % (35.0-51.0); LYMPH % 7.3 % (20.0-40.0); MEAN CELL VOLUME 87.4 fL (80.0-94.0); MEAN CORPUSCULAR HEMOGLOBIN 28.1 pg (27.0-31.0); MEAN CORPUSCULAR HGB CONC 32.2 g/dL (33.0-37.0); MEAN PLATELET VOLUME 7.9 fL (7.2-11.7); MONO % 7.7 % (0.0-10.0); NRBC % 0.2 % (0.0-2.0); PLATELET COUNT 178 K/uL (130-400); RED CELL DISTRIBUTION WIDTH 17.8 % (11.5-14.5); WHITE BLOOD COUNT 13.5 K/uL (4.8-10.8)
[2016-05-26 06:44] LABS: POTASSIUM 3.4 mmol/L (3.6-5.2)
[2016-05-26 06:46] LABS: ALB/GLOB RATIO 0.8 (1.0-2.1); BILIRUBIN,TOTAL 0.6 mg/dL (0.2-1.3); TOTAL PROTEIN 4.6 g/dL (6.3-8.3)
[2016-05-26 06:47] LABS: MAGNESIUM 1.9 mg/dL (1.6-2.3); PHOSPHOROUS 2.7 mg/dL (2.5-4.5)
--- NOTE | 2016-05-26 07:27 | CP.CCUPN ---
<Supa Mclean - Last Filed: 05/26/16 14:59> CCU Subjective - Physician Review Subjective (Free Text): 05/23/16 18:00 Patient seen at beside with no acute issues. Patient had upper GI endoscopy today. Patient a bit lethargic afterwards with recommendations made.for diet advancement to clears once with improved mental status. ROS could not be obtained at the time due to somnolence. 05/26/16 14:47 Pt seen and examined in no acute distress. No significant events overnight per nursing. Patient somnolent at time of initial evaluation. Family present later on bedside. A ROS could not be obtained at this time due to somnolence. CCU Objective - Vital Signs / Intake & Output Vital Signs (Last 4 hours): Vital Signs Temp Pulse Resp BP Pulse Ox 05/26/16 07:00 86 15 98 05/26/16 06:47 87 15 109/56 L 98 05/26/16 06:28 103 H 16 95 05/26/16 06:00 91 H 13 100 05/26/16 05:47 86 14 114/58 L 100 05/26/16 05:16 92 H 13 100 05/26/16 05:00 104 H 18 100 05/26/16 04:54 95 H 14 124/61 99 05/26/16 04:05 91 H 15 98 05/26/16 04:00 99 F 92 H 15 99 05/26/16 03:47 100 H 16 111/63 98 Intake and Output (Last 8hrs): Intake & Output 05/25/16 05/26/16 05/26/16 22:59 06:59 14:59 Intake Total 395 760 110 Output Total 826 450 54 Balance -431 310 56 Weight 155 lb Intake: Intake, IV Amount 395 760 110 Right Wrist 80 60 Left Hand 315 120 Right Distal Port Wrist 360 Right Distal Port Forearm 200 100 Right Proximal Port 20 10 Forearm Output: Urine 826 450 54 Urethral (Cardenas) 826 450 54 - Physical Exam Head: Positive for: Atraumatic, Normocephalic Pupils: Positive for: PERRL Extroacular Muscles: Positive for: EOMI Conjunctiva: Positive for: Normal Mouth: Positive for: Moist Mucous Membranes Neck: Positive for: Normal Range of Motion Respiratory/Chest: Positive for: Clear to Auscultation, Good Air Exchange. Negative for: Wheezes Cardiovascular: Positive for: Normal S1, S2 Abdomen: Positive for: Normal Bowel Sounds. Negative for: Tenderness Back: Positive for: Normal Inspection Upper Extremity: Positive for: Normal Inspection Lower Extremity: Positive for: Normal Inspection Neurological: Positive for: CN II-XII Intact Skin: Positive for: Warm, Dry Psychiatric: Positive for: Lethargic - Medications Active Medications: Active Medications Generic Name Dose Route Start Last Admin Trade Name Freq PRN Reason Stop Dose Admin Brimonidine Tartrate 0 ml 05/22/16 14:00 05/25/16 19:07 Alphagan 0.2% Opht OU 1 drop TID LASHA Administration Dorzolamide HCl 0 ml 05/22/16 14:00 05/25/16 19:07 Trusopt OU 1 drop TID LASHA Administration Ferric Sodium Gluconate Complex 125 mg 05/25/16 10:00 05/25/16 12:34 Ferrlecit IVPB 05/27/16 10:01 125 mg DAILY LASHA Administration Guaifenesin 600 mg 05/22/16 18:00 05/25/16 19:08 Mucinex La PO Not Given BID LASHA Guaifenesin/Dextromethorphan 5 ml 05/25/16 20:30 05/26/16 00:43 Robitussin Dm PO 5 ml Q4H PRN Administration Cough Folic Acid 1 mg/ Sodium 100.2 mls @ 60 mls/hr 05/22/16 15:00 05/25/16 10:46 Chloride IV 60 mls/hr DAILY LASHA Administration Pantoprazole Sodium 80 mg/ 100 mls @ 10 mls/hr 05/24/16 12:45 05/26/16 04:01 Sodium Chloride IV 10 mls/hr .Q10H LASHA Administration Imipenem/Cilastatin Sodium 250 100 mls @ 100 mls/hr 05/24/16 19:15 05/26/16 06: 36 mg/ Sodium Chloride IVPB 100 mls/hr Q6H LASHA Administration Sodium Chloride 1,000 mls @ 60 mls/hr 05/25/16 10:00 05/26/16 04:03 Sodium Chloride 0.45% IV Not Given .[id number] LASHA Insulin Aspart 0 unit 05/25/16 12:00 05/26/16 05:45 Novolog SC Not Given Q6 LASHA Protocol Latanoprost 0 ml 05/22/16 22:00 05/25/16 21:05 Xalatan Opht OU 2.5 ml HS LASHA Administration Nystatin 0 ea 05/22/16 10:15 05/25/16 19:07 Mycostatin Cream TOP 1 applic TID LASHA Administration Tamsulosin HCl 0.4 mg 05/22/16 10:00 05/24/16 09:43 Flomax PO 0.4 mg DAILY LASHA Administration - Patient Studies Lab Studies: Lab Studies 05/26/16 05/26/16 05/26/16 Range/Units 06:21 05:42 00:18 WBC 13.5 H (4.8-10.8) K/uL RBC 2.78 L (4.40-5.90) Mil/uL Hgb 7.8 L (12.0-18.0) g/dL Hct 24.3 L (35.0-51.0) % MCV 87.4 (80.0-94.0) fL MCH 28.1 (27.0-31.0) pg MCHC 32.2 L (33.0-37.0) g/dL RDW 17.8 H (11.5-14.5) % Plt Count 178 (130-400) K/uL MPV 7.9 (7.2-11.7) fL Neut % (Auto) 83.1 H (50.0-75.0) % Lymph % (Auto) 7.3 L (20.0-40.0) % Mclean % (Auto) 7.7 (0.0-10.0) % Eos % (Auto) 1.6 (0.0-4.0) % Baso % (Auto) 0.3 (0.0-2.0) % Neut # 11.2 H (1.8-7.0) K/uL Lymph # 1.0 (1.0-4.3) K/uL Mclean # 1.0 H (0.0-0.8) K/uL Eos # 0.2 (0.0-0.7) K/uL Baso # 0.0 (0.0-0.2) K/uL Neutrophils % (Manual) (50-75) % Band Neutrophils % (0-2) % Lymphocytes % (Manual) (20-40) % Monocytes % (Manual) (0-10) % Platelet Estimate (NORMAL) Polychromasia Hypochromasia (manual) Poikilocytosis (manual Anisocytosis (manual) Microcytosis (manual) Macrocytosis (manual) Spherocytes Ovalocytes Sodium 153 H (132-148) mmol/L Potassium 3.4 L (3.6-5.2) mmol/L Chloride 123 H (98-107) mmol/L Carbon Dioxide 18 L (22-30) mmol/L Anion Gap 15 (10-20) BUN 27 H (9-20) mg/dL Creatinine 1.4 (0.8-1.5) MG/DL Est GFR ( Amer) 58 Est GFR (Non-Af Amer) 48 POC Glucose (mg/dL) 130 H 162 H (65-110) mg/dL Random Glucose 91 (75-110) mg/dL Calcium 7.0 L (8.6-10.4) mg/dl Phosphorus 2.7 (2.5-4.5) mg/dL Magnesium 1.9 (1.6-2.3) mg/dL Total Bilirubin 0.6 (0.2-1.3) mg/dL AST 22 (17-59) U/L ALT 28 (21-72) U/L Alkaline Phosphatase 52 (38-126) U/L Total Protein 4.6 L (6.3-8.3) g/dL Albumin 2.0 L (3.5-5.0) g/dL Globulin 2.6 (2.2-3.9) gm/dL Albumin/Globulin Ratio 0.8 L (1.0-2.1) Blood Type Antibody Screen 05/25/16 05/25/16 05/25/16 Range/Units 17:43 11:52 07:47 WBC (4.8-10.8) K/uL RBC (4.40-5.90) Mil/uL Hgb (12.0-18.0) g/dL Hct (35.0-51.0) % MCV (80.0-94.0) fL MCH (27.0-31.0) pg MCHC (33.0-37.0) g/dL RDW (11.5-14.5) % Plt Count (130-400) K/uL MPV (7.2-11.7) fL Neut % (Auto) (50.0-75.0) % Lymph % (Auto) (20.0-40.0) % Mclean % (Auto) (0.0-10.0) % Eos % (Auto) (0.0-4.0) % Baso % (Auto) (0.0-2.0) % Neut # (1.8-7.0) K/uL Lymph # (1.0-4.3) K/uL Mclean # (0.0-0.8) K/uL Eos # (0.0-0.7) K/uL Baso # (0.0-0.2) K/uL Neutrophils % (Manual) (50-75) % Band Neutrophils % (0-2) % Lymphocytes % (Manual) (20-40) % Monocytes % (Manual) (0-10) % Platelet Estimate (NORMAL) Polychromasia Hypochromasia (manual) Poikilocytosis (manual Anisocytosis (manual) Microcytosis (manual) Macrocytosis (manual) Spherocytes Ovalocytes Sodium 152 H (132-148) mmol/L Potassium 3.4 L (3.6-5.2) mmol/L Chloride 122 H (98-107) mmol/L Carbon Dioxide 19 L (22-30) mmol/L Anion Gap 14 (10-20) BUN 35 H (9-20) mg/dL Creatinine 1.5 (0.8-1.5) MG/DL Est GFR ( Amer) 54 Est GFR (Non-Af Amer) 45 POC Glucose (mg/dL) 191 H 183 H (65-110) mg/dL Random Glucose 172 H (75-110) mg/dL Calcium 7.1 L (8.6-10.4) mg/dl Phosphorus 2.2 L (2.5-4.5) mg/dL Magnesium 2.0 (1.6-2.3) mg/dL Total Bilirubin 0.3 (0.2-1.3) mg/dL AST 16 L D (17-59) U/L ALT 33 (21-72) U/L Alkaline Phosphatase 57 (38-126) U/L Total Protein 4.7 L (6.3-8.3) g/dL Albumin 1.9 L (3.5-5.0) g/dL Globulin 2.8 (2.2-3.9) gm/dL Albumin/Globulin Ratio 0.7 L (1.0-2.1) Blood Type Antibody Screen 05/25/16 05/25/16 05/25/16 Range/Units 07:35 07:21 07:10 WBC 13.8 H (4.8-10.8) K/uL RBC 3.11 L (4.40-5.90) Mil/uL Hgb 8.8 L (12.0-18.0) g/dL Hct 27.3 L (35.0-51.0) % MCV 87.8 (80.0-94.0) fL MCH 28.2 (27.0-31.0) pg MCHC 32.1 L (33.0-37.0) g/dL RDW 17.7 H (11.5-14.5) % Plt Count 152 (130-400) K/uL MPV 7.5 (7.2-11.7) fL Neut % (Auto) 81.0 H (50.0-75.0) % Lymph % (Auto) 7.2 L (20.0-40.0) % Mclean % (Auto) 9.9 (0.0-10.0) % Eos % (Auto) 1.4 (0.0-4.0) % Baso % (Auto) 0.5 (0.0-2.0) % Neut # 11.2 H (1.8-7.0) K/uL Lymph # 1.0 (1.0-4.3) K/uL Mclean # 1.4 H (0.0-0.8) K/uL Eos # 0.2 (0.0-0.7) K/uL Baso # 0.1 (0.0-0.2) K/uL Neutrophils % (Manual) 76 H (50-75) % Band Neutrophils % 1 (0-2) % Lymphocytes % (Manual) 14 L (20-40) % Monocytes % (Manual) 9 (0-10) % Platelet Estimate Normal (NORMAL) Polychromasia Slight Hypochromasia (manual) Slight Poikilocytosis (manual Slight Anisocytosis (manual) Slight Microcytosis (manual) Slight Macrocytosis (manual) Slight Spherocytes Slight Ovalocytes Slight Sodium (132-148) mmol/L Potassium (3.6-5.2) mmol/L Chloride (98-107) mmol/L Carbon Dioxide (22-30) mmol/L Anion Gap (10-20) BUN (9-20) mg/dL Creatinine (0.8-1.5) MG/DL Est GFR ( Amer) Est GFR (Non-Af Amer) POC Glucose (mg/dL) 221 H (65-110) mg/dL Random Glucose (75-110) mg/dL Calcium (8.6-10.4) mg/dl Phosphorus (2.5-4.5) mg/dL Magnesium (1.6-2.3) mg/dL Total Bilirubin (0.2-1.3) mg/dL AST (17-59) U/L ALT (21-72) U/L Alkaline Phosphatase (38-126) U/L Total Protein (6.3-8.3) g/dL Albumin (3.5-5.0) g/dL Globulin (2.2-3.9) gm/dL Albumin/Globulin Ratio (1.0-2.1) Blood Type O POSITIVE Antibody Screen Negative Laboratory Results - last 24 hr 05/25/16 05/25/16 05/25/16 07:10 07:21 07:35 WBC 13.8 H RBC 3.11 L Hgb 8.8 L Hct 27.3 L MCV 87.8 MCH 28.2 MCHC 32.1 L RDW 17.7 H Plt Count 152 MPV 7.5 Neut % (Auto) 81.0 H Lymph % (Auto) 7.2 L Mclean % (Auto) 9.9 Eos % (Auto) 1.4 Baso % (Auto) 0.5 Neut # 11.2 H Lymph # 1.0 Mclean # 1.4 H Eos # 0.2 Baso # 0.1 Neutrophils % (Manual) 76 H Band Neutrophils % 1 Lymphocytes % (Manual) 14 L Monocytes % (Manual) 9 Platelet Estimate Normal Polychromasia Slight Hypochromasia (manual) Slight Poikilocytosis (manual Slight Anisocytosis (manual) Slight Microcytosis (manual) Slight Macrocytosis (manual) Slight Spherocytes Slight Ovalocytes Slight Sodium Potassium Chloride Carbon Dioxide Anion Gap BUN Creatinine Est GFR ( Amer) Est GFR (Non-Af Amer) POC Glucose (mg/dL) 221 H Random Glucose Calcium Phosphorus Magnesium Total Bilirubin AST ALT Alkaline Phosphatase Total Protein Albumin Globulin Albumin/Globulin Ratio Blood Type O POSITIVE Antibody Screen Negative 05/25/16 05/25/16 05/25/16 07:47 11:52 17:43 WBC RBC Hgb Hct MCV MCH MCHC RDW Plt Count MPV Neut % (Auto) Lymph % (Auto) Mclean % (Auto) Eos % (Auto) Baso % (Auto) Neut # Lymph # Mclean # Eos # Baso # Neutrophils % (Manual) Band Neutrophils % Lymphocytes % (Manual) Monocytes % (Manual) Platelet Estimate Polychromasia Hypochromasia (manual) Poikilocytosis (manual Anisocytosis (manual) Microcytosis (manual) Macrocytosis (manual) Spherocytes Ovalocytes Sodium 152 H Potassium 3.4 L Chloride 122 H Carbon Dioxide 19 L Anion Gap 14 BUN 35 H Creatinine 1.5 Est GFR ( Amer) 54 Est GFR (Non-Af Amer) 45 POC Glucose (mg/dL) 183 H 191 H Random Glucose 172 H Calcium 7.1 L Phosphorus 2.2 L Magnesium 2.0 Total Bilirubin 0.3 AST 16 L D ALT 33 Alkaline Phosphatase 57 Total Protein 4.7 L Albumin 1.9 L Globulin 2.8 Albumin/Globulin Ratio 0.7 L Blood Type Antibody Screen 05/26/16 05/26/16 05/26/16 00:18 05:42 06:21 WBC 13.5 H RBC 2.78 L Hgb 7.8 L Hct 24.3 L MCV 87.4 MCH 28.1 MCHC 32.2 L RDW 17.8 H Plt Count 178 MPV 7.9 Neut % (Auto) 83.1 H Lymph % (Auto) 7.3 L Mclean % (Auto) 7.7 Eos % (Auto) 1.6 Baso % (Auto) 0.3 Neut # 11.2 H Lymph # 1.0 Mclean # 1.0 H Eos # 0.2 Baso # 0.0 Neutrophils % (Manual) Band Neutrophils % Lymphocytes % (Manual) Monocytes % (Manual) Platelet Estimate Polychromasia Hypochromasia (manual) Poikilocytosis (manual Anisocytosis (manual) Microcytosis (manual) Macrocytosis (manual) Spherocytes Ovalocytes Sodium 153 H Potassium 3.4 L Chloride 123 H Carbon Dioxide 18 L Anion Gap 15 BUN 27 H Creatinine 1.4 Est GFR ( Amer) 58 Est GFR (Non-Af Amer) 48 POC Glucose (mg/dL) 162 H 130 H Random Glucose 91 Calcium 7.0 L Phosphorus 2.7 Magnesium 1.9 Total Bilirubin 0.6 AST 22 ALT 28 Alkaline Phosphatase 52 Total Protein 4.6 L Albumin 2.0 L Globulin 2.6 Albumin/Globulin Ratio 0.8 L Blood Type Antibody Screen Fingerstick Blood Sugar Results: 130 Review of Systems - Review of Systems Review of Systems: as noted in subjective Critical Care Progress Note - Nutrition Nutrition: Nutrition Category Date Time Status Liquid Diet [DIET] Diets 05/26/16 Breakfast Active Assessment/Plan - Assessment and Plan (Free Text) Assessment: 85 year old male with history of Anemia requiring transfusion 04/2015, [place] complicated by CAD s/p 3 vessel CABG 2012 previously on Plavix prior to admission 04/2016, moderate aortic stenosis, ischemic cardiomyopathy 35-40%, CKD Stage 3, Hypertension, Hyperlipidemia presenting with weakness and blood in stool. Recent discharge for pneumonia to rehabilitation center 04/30/16. Acute treatment of acute anemia, FOBT positive, and hypotension. Prior EGD and colonoscopy 04/2015 showed gastric AVM, normal colon, and internal hemorrhoids. Status post EGD consistent with esophagitis, gastric ulcers, large duodenal bulb/sweep ulcer with stigmata of recent bleed- pigmented spot, status post epinephrine injection Plan: Neuro: Neurocheck q4 Cardio: Tachycardia Hypotension, with history of Hypertension Monitor 05/22 EKG: right BBB, PACs, PVCs Sinus rhythm at 69 bpm. 05/21 EKG: NSR @ 100, Right BBB, septal infarct, age undetermined ENT: Brimonidine tartrate 1 drop in affected eyes TID LASHA Dorzolamide 1 drop in affected eyes TID LASHA Pulm: Maintain O2 Sat >92% Guaifenesin 600 mg PO BID Imagin/17 CXR: Mild increased pulmonary vascular congestion. 05/22 CXR: No interval pathology indicated Endo: DM Maintain euglycemia Sliding scale Novolog units SC Q6 Latanoprost OU HS LASHA GI: Advance to clears s/p 72 hrs Monitor Daily CMP Procedures: 05/23 EGD: GE junction @ 35 cm hiatal narrowing @37 cm. Post op diagnosis: non- bleeding gastric ulcer. Gastritis. Esophagitis, hiatal hernia. 05/23 EGD report: LA Grade D esophagitis ( one or more mucosal breaks involving 75% of esophageal circumference) no bleeding found. Biopsies taken for histology. 4mm superficial non-bleeding ulcer in gastric body. 3 mm non bleeding ulcer in gastric antrum. 1 cm hiatus hernia present. Non-bleeding linear duodenal ulcer with black pigmented spot (Patrick Class IIC) found in duodenal bulb. 05/26: Per GI, no colonoscopy per now. Patient on clear liquid diet and will monitor flexiseal. F/U repeat labs at noon : BPH Monitor I/Os Tamsulosin 0.4 mg PO daily Renal: Monitor I/Os NS 1000 cc @ 100 cc/hr IV Q10H Heme: H&H 7.8/24.3-Monitor H&H. May require transfusion however per HemeOnc, patient has established anemia. F/U recommendations Daily CBC Folic Acid 1 mg IV MSK: PT/OT eval ID: WBC trending down 13.5 Daily CBC Cefepime 1 grm 50 cc @ 100 cc/hr Nystatin cream TID LASHA Vancomycin 200 cc @ 133.33 cc/hr IVPB Q24H UTI with Proteus mirabilis continue Primaxin. Stopped vancomycin Prophylaxis: DVT: held due to bleed, SCDs on GI: Protonix drip <Jocelyn Linares - Last Filed: 05/26/16 15:33> CCU Subjective - Physician Review Events Since Last Encounter (Free Text): 05/26/16 15:32 Isn't is more awake and responding today. Feeling somewhat hungry, under tolerating the oral liquid diet. Today patient had an episode of fever dark stools, but stable. Vital signs is stable. Denies any Chest pain or shortness of breath Labs reviewed Examination done, showing evidence of anasarca, mild edema. Chest good air entry bilaterally regular heart sound nontender abdomen Discussed with the gastrointestinal and a senior loss control specialist PMD. Patient has a history of chronic anemia. We'll monitor the hemoglobin. Continue the iron infusion. Will follow the patient. Also elevated sodium level , will monitor the sodium level. If next blood works is stable patient can be transferred to floor CCU Objective - Vital Signs / Intake & Output Vital Signs (Last 4 hours): Vital Signs Temp Pulse Resp BP Pulse Ox 05/26/16 13:00 89 15 97 05/26/16 12:47 90 15 133/71 85 L 05/26/16 12:00 96.9 F L 92 H 15 98 05/26/16 11:47 99 H 15 135/65 94 L Intake and Output (Last 8hrs): Intake & Output 05/26/16 05/26/16 05/26/16 06:59 14:59 22:59 Intake Total 760 995 Output Total 450 254 Balance 310 741 Weight 155 lb Intake: Intake, IV Amount 760 770 Right Wrist 60 Left Hand 120 Right Distal Port Wrist 360 Right Distal Port Forearm 200 700 Right Proximal Port 20 70 Forearm Oral 225 Output: Urine 450 254 Urethral (Cardenas) 450 254 Other: # Bowel Movements 1 - Medications Active Medications: Active Medications Generic Name Dose Route Start Last Admin Trade Name Freq PRN Reason Stop Dose Admin Brimonidine Tartrate 0 ml 05/22/16 14:00 05/26/16 10:09 Alphagan 0.2% Opht OU 1 drop TID LASHA Administration Dorzolamide HCl 0 ml 05/22/16 14:00 05/26/16 10:09 Trusopt OU 1 drop TID LASHA Administration Ferric Sodium Gluconate Complex 125 mg 05/25/16 10:00 05/26/16 10:08 Ferrlecit IVPB 05/27/16 10:01 125 mg DAILY LASHA Administration Pantoprazole Sodium 80 mg/ 100 mls @ 10 mls/hr 05/24/16 12:45 05/26/16 04:01 Sodium Chloride IV 10 mls/hr .Q10H LASHA Administration Imipenem/Cilastatin Sodium 250 100 mls @ 100 mls/hr 05/24/16 19:15 05/26/16 06: 36 mg/ Sodium Chloride IVPB 100 mls/hr Q6H LASHA Administration Insulin Aspart 0 unit 05/25/16 12:00 05/26/16 05:45 Novolog SC Not Given Q6 LASHA Protocol Latanoprost 0 ml 05/22/16 22:00 05/25/16 21:05 Xalatan Opht OU 2.5 ml HS LASHA Administration Nystatin 0 ea 05/22/16 10:15 05/25/16 19:07 Mycostatin Cream TOP 1 applic TID LASHA Administration Tamsulosin HCl 0.4 mg 05/22/16 10:00 05/26/16 10:07 Flomax PO Not Given DAILY LASHA - Patient Studies Lab Studies: Lab Studies 05/26/16 05/26/16 05/26/16 Range/Units 14:58 06:21 05:42 WBC 14.5 H 13.5 H (4.8-10.8) K/uL RBC 2.82 L 2.78 L (4.40-5.90) Mil/uL Hgb 7.9 L 7.8 L (12.0-18.0) g/dL Hct 24.7 L 24.3 L (35.0-51.0) % MCV 87.6 87.4 (80.0-94.0) fL MCH 27.9 28.1 (27.0-31.0) pg MCHC 31.8 L 32.2 L (33.0-37.0) g/dL RDW 18.2 H 17.8 H (11.5-14.5) % Plt Count 175 178 (130-400) K/uL MPV 7.5 7.9 (7.2-11.7) fL Neut % (Auto) 85.2 H 83.1 H (50.0-75.0) % Lymph % (Auto) 6.7 L 7.3 L (20.0-40.0) % Mclean % (Auto) 6.0 7.7 (0.0-10.0) % Eos % (Auto) 1.7 1.6 (0.0-4.0) % Baso % (Auto) 0.4 0.3 (0.0-2.0) % Neut # 12.3 H 11.2 H (1.8-7.0) K/uL Lymph # 1.0 1.0 (1.0-4.3) K/uL Mclean # 0.9 H 1.0 H (0.0-0.8) K/uL Eos # 0.3 0.2 (0.0-0.7) K/uL Baso # 0.1 0.0 (0.0-0.2) K/uL Neutrophils % (Manual) 82 H (50-75) % Band Neutrophils % 5 H (0-2) % Lymphocytes % (Manual) 4 L (20-40) % Monocytes % (Manual) 5 (0-10) % Eosinophils % (Manual) 2 (0-4) % Basophils % (Manual) 1 (0-2) % Metamyelocytes % 1 H (0-0) % Nucleated RBC % 1 H (0-0) % Platelet Estimate Normal (NORMAL) Hypochromasia (manual) Slight Anisocytosis (manual) Slight Ovalocytes Slight Sodium 153 H (132-148) mmol/L Potassium 3.4 L (3.6-5.2) mmol/L Chloride 123 H (98-107) mmol/L Carbon Dioxide 18 L (22-30) mmol/L Anion Gap 15 (10-20) BUN 27 H (9-20) mg/dL Creatinine 1.4 (0.8-1.5) MG/DL Est GFR ( Amer) 58 Est GFR (Non-Af Amer) 48 POC Glucose (mg/dL) 130 H (65-110) mg/dL Random Glucose 91 (75-110) mg/dL Calcium 7.0 L (8.6-10.4) mg/dl Phosphorus 2.7 (2.5-4.5) mg/dL Magnesium 1.9 (1.6-2.3) mg/dL Total Bilirubin 0.6 (0.2-1.3) mg/dL AST 22 (17-59) U/L ALT 28 (21-72) U/L Alkaline Phosphatase 52 (38-126) U/L Total Protein 4.6 L (6.3-8.3) g/dL Albumin 2.0 L (3.5-5.0) g/dL Globulin 2.6 (2.2-3.9) gm/dL Albumin/Globulin Ratio 0.8 L (1.0-2.1) 05/26/16 05/25/16 Range/Units 00:18 17:43 WBC (4.8-10.8) K/uL RBC (4.40-5.90) Mil/uL Hgb (12.0-18.0) g/dL Hct (35.0-51.0) % MCV (80.0-94.0) fL MCH (27.0-31.0) pg MCHC (33.0-37.0) g/dL RDW (11.5-14.5) % Plt Count (130-400) K/uL MPV (7.2-11.7) fL Neut % (Auto) (50.0-75.0) % Lymph % (Auto) (20.0-40.0) % Mclean % (Auto) (0.0-10.0) % Eos % (Auto) (0.0-4.0) % Baso % (Auto) (0.0-2.0) % Neut # (1.8-7.0) K/uL Lymph # (1.0-4.3) K/uL Mclean # (0.0-0.8) K/uL Eos # (0.0-0.7) K/uL Baso # (0.0-0.2) K/uL Neutrophils % (Manual) (50-75) % Band Neutrophils % (0-2) % Lymphocytes % (Manual) (20-40) % Monocytes % (Manual) (0-10) % Eosinophils % (Manual) (0-4) % Basophils % (Manual) (0-2) % Metamyelocytes % (0-0) % Nucleated RBC % (0-0) % Platelet Estimate (NORMAL) Hypochromasia (manual) Anisocytosis (manual) Ovalocytes Sodium (132-148) mmol/L Potassium (3.6-5.2) mmol/L Chloride (98-107) mmol/L Carbon Dioxide (22-30) mmol/L Anion Gap (10-20) BUN (9-20) mg/dL Creatinine (0.8-1.5) MG/DL Est GFR ( Amer) Est GFR (Non-Af Amer) POC Glucose (mg/dL) 162 H 191 H (65-110) mg/dL Random Glucose (75-110) mg/dL Calcium (8.6-10.4) mg/dl Phosphorus (2.5-4.5) mg/dL Magnesium (1.6-2.3) mg/dL Total Bilirubin (0.2-1.3) mg/dL AST (17-59) U/L ALT (21-72) U/L Alkaline Phosphatase (38-126) U/L Total Protein (6.3-8.3) g/dL Albumin (3.5-5.0) g/dL Globulin (2.2-3.9) gm/dL Albumin/Globulin Ratio (1.0-2.1) Laboratory Results - last 24 hr 05/25/16 05/26/16 05/26/16 17:43 00:18 05:42 WBC RBC Hgb Hct MCV MCH MCHC RDW Plt Count MPV Neut % (Auto) Lymph % (Auto) Mclean % (Auto) Eos % (Auto) Baso % (Auto) Neut # Lymph # Mclean # Eos # Baso # Neutrophils % (Manual) Band Neutrophils % Lymphocytes % (Manual) Monocytes % (Manual) Eosinophils % (Manual) Basophils % (Manual) Metamyelocytes % Nucleated RBC % Platelet Estimate Hypochromasia (manual) Anisocytosis (manual) Ovalocytes Sodium Potassium Chloride Carbon Dioxide Anion Gap BUN Creatinine Est GFR ( Amer) Est GFR (Non-Af Amer) POC Glucose (mg/dL) 191 H 162 H 130 H Random Glucose Calcium Phosphorus Magnesium Total Bilirubin AST ALT Alkaline Phosphatase Total Protein Albumin Globulin Albumin/Globulin Ratio 05/26/16 05/26/16 06:21 14:58 WBC 13.5 H 14.5 H RBC 2.78 L 2.82 L Hgb 7.8 L 7.9 L Hct 24.3 L 24.7 L MCV 87.4 87.6 MCH 28.1 27.9 MCHC 32.2 L 31.8 L RDW 17.8 H 18.2 H Plt Count 178 175 MPV 7.9 7.5 Neut % (Auto) 83.1 H 85.2 H Lymph % (Auto) 7.3 L 6.7 L Mclean % (Auto) 7.7 6.0 Eos % (Auto) 1.6 1.7 Baso % (Auto) 0.3 0.4 Neut # 11.2 H 12.3 H Lymph # 1.0 1.0 Mclean # 1.0 H 0.9 H Eos # 0.2 0.3 Baso # 0.0 0.1 Neutrophils % (Manual) 82 H Band Neutrophils % 5 H Lymphocytes % (Manual) 4 L Monocytes % (Manual) 5 Eosinophils % (Manual) 2 Basophils % (Manual) 1 Metamyelocytes % 1 H Nucleated RBC % 1 H Platelet Estimate Normal Hypochromasia (manual) Slight Anisocytosis (manual) Slight Ovalocytes Slight Sodium 153 H Potassium 3.4 L Chloride 123 H Carbon Dioxide 18 L Anion Gap 15 BUN 27 H Creatinine 1.4 Est GFR ( Amer) 58 Est GFR (Non-Af Amer) 48 POC Glucose (mg/dL) Random Glucose 91 Calcium 7.0 L Phosphorus 2.7 Magnesium 1.9 Total Bilirubin 0.6 AST 22 ALT 28 Alkaline Phosphatase 52 Total Protein 4.6 L Albumin 2.0 L Globulin 2.6 Albumin/Globulin Ratio 0.8 L Critical Care Progress Note - Nutrition Nutrition: Nutrition Category Date Time Status Liquid Diet [DIET] Diets 05/26/16 Breakfast Active
[2016-05-26] MEDS ORDERED: Potassium Chloride 20 mEq/15 ml LIQ UD PO ONE (07:30)
--- NOTE | 2016-05-26 09:13 | CP.PCM.PN ---
<MyleneDenae - Last Filed: 05/26/16 10:28> Subjective - Date & Time of Evaluation Date of Evaluation: 05/26/16 Time of Evaluation: 09:10 - Subjective Subjective: Gastroenterology Fellow/PGY4 Progress Note Patient has left upper abdominal discomfort. Nurse denies melena or hematochezia overnight. A 12-point review of systems negative except for above. Objective - Vital Signs/Intake and Output Vital Signs (last 24 hours): Temp Pulse Resp BP Pulse Ox 99 F 86 15 109/56 L 98 05/26/16 04:00 05/26/16 07:00 05/26/16 07:00 05/26/16 06:47 05/26/16 07:00 Intake and Output: 05/26/16 05/26/16 06:59 18:59 Intake Total 926 110 Output Total 726 54 Balance 200 56 - Medications Medications: Current Medications Brimonidine Tartrate (Alphagan 0.2% Opht) 0 ml OU TID [facility] Last Admin: 05/25/16 19:07 Dose: 1 drop Dorzolamide HCl (Trusopt) 0 ml OU TID [facility] Last Admin: 05/25/16 19:07 Dose: 1 drop Ferric Sodium Gluconate Complex (Ferrlecit) 125 mg IVPB DAILY [facility] Stop: 05/27/16 10:01 Last Admin: 05/25/16 12:34 Dose: 125 mg Pantoprazole Sodium 80 mg/ (Sodium Chloride) 100 mls @ 10 mls/hr IV .Q10H [facility] Last Admin: 05/26/16 04:01 Dose: 10 mls/hr Imipenem/Cilastatin Sodium 250 (mg/ Sodium Chloride) 100 mls @ 100 mls/hr IVPB Q6H [facility] Last Admin: 05/26/16 06:36 Dose: 100 mls/hr Insulin Aspart (Novolog) 0 unit SC Q6 [facility] PRN Reason: Protocol Last Admin: 05/26/16 05:45 Dose: Not Given Latanoprost (Xalatan Opht) 0 ml OU HS [facility] Last Admin: 05/25/16 21:05 Dose: 2.5 ml Nystatin (Mycostatin Cream) 0 ea TOP TID [facility] Last Admin: 05/25/16 19:07 Dose: 1 applic Tamsulosin HCl (Flomax) 0.4 mg PO DAILY [facility] Last Admin: 05/24/16 09:43 Dose: 0.4 mg - Labs Labs: 05/26/16 06:21 05/26/16 06:21 PT 10.8 SECONDS (9.7-12.2) 05/23/16 05:59 INR 1.0 05/23/16 05:59 APTT 25 SECONDS (21-34) 05/23/16 05:59 - Constitutional Appears: Non-toxic, No Acute Distress - Head Exam Head Exam: ATRAUMATIC, NORMOCEPHALIC - Eye Exam Eye Exam: EOMI, PERRL Pupil Exam: PERRL. absent: Miosis, Mydriatic - ENT Exam ENT Exam: Mucous Membranes Moist, Normal Oropharynx - Neck Exam Neck Exam: Full ROM, Normal Inspection - Respiratory Exam Respiratory Exam: Clear to Ausculation Bilateral. absent: Rales, Rhonchi, Wheezes - Cardiovascular Exam Cardiovascular Exam: RRR, +S1, +S2. absent: Gallop, Rubs - GI/Abdominal Exam GI & Abdominal Exam: Soft, Tenderness, Normal Bowel Sounds. absent: Distended, Firm, Guarding, Rigid, Mass, Organomegaly, Rebound Additional comments: LUQ tenderness - Extremities Exam Extremities Exam: Normal Inspection. absent: Pedal Edema - Neurological Exam Neurological Exam: Alert, Awake - Psychiatric Exam Psychiatric exam: Normal Affect, Normal Mood - Skin Skin Exam: Dry, Intact, Normal Color, Warm Assessment and Plan - Assessment and Plan (Free Text) Assessment: 85 year old male with history of Anemia requiring transfusion 04/2015 on scheduled outpatient Iron infusions with Dr. Jackson, [place] complicated by CAD s/p 3 vessel CABG 2012 previously on Plavix prior to admission 04/2016, moderate aortic stenosis, ischemic cardiomyopathy 35-40%, CKD Stage 3, Hypertension, Hyperlipidemia presenting with weakness and blood in stool. Recent discharge for pneumonia to rehabilitation center 04/30/16. Acute treatment of acute anemia , FOBT positive, and hypotension. Prior EGD and colonoscopy 04/2015 showed gastric AVM, normal colon, and internal hemorrhoids. Acute on chronic normocytic anemia POD 3 EGD (05/23) with nonbleeding duodenal ulcer, Patrick Class IIc Melena, ABL anemia POD2 (05/24) EGD with duodenal ulcer and stigmata of recent bleed, Patrick Class Ib and IIc Multidrug resistent Proteus UTI Plan: >received 2 units pRBCs 05/22, 1U 05/24 >EGD 05/23 showing LA Grade D esophagitis, gastric ulcers, large duodenal bulb/ sweep ulcer with stigmata of recent bleed- pigmented spot >EGD 05/24- duodenal ulcer with stigmata of recent bleed s/p gold probe coagulation and epinephrine [id number] injection >monitor H/H >place Flexiseal, monitor stool output >re-assess this afternoon for overt GI blood loss, evaluate for possible colonoscopy tomorrow if continued GI blood loss >continue PPI drip for total of 72 hours (05/27 1245pm) >continue clear liquids >biopsies pending to assess for H pylori >discussed with established Art Critic, Dr. Jackson- iron deficiency anemia on Iron infusions -will plan for outpatient follow up >will benefit from EGD ulcer surveillance in 4-8 weeks >will benefit from outpatient capsule endoscopy outpatient <Penelope KING,Hailey - Last Filed: 05/26/16 19:27> Objective - Vital Signs/Intake and Output Vital Signs (last 24 hours): Temp Pulse Resp BP Pulse Ox 97.6 F 105 H 17 121/70 97 05/26/16 16:00 05/26/16 18:00 05/26/16 18:00 05/26/16 17:47 05/26/16 17:47 Intake and Output: 05/26/16 05/27/16 18:59 06:59 Intake Total 1435 Output Total 554 Balance 881 - Medications Medications: Current Medications Brimonidine Tartrate (Alphagan 0.2% Opht) 0 ml OU TID [facility] Last Admin: 05/26/16 18:12 Dose: 1 drop Dorzolamide HCl (Trusopt) 0 ml OU TID [facility] Last Admin: 05/26/16 18:22 Dose: 1 drop Ferric Sodium Gluconate Complex (Ferrlecit) 125 mg IVPB DAILY [facility] Stop: 05/27/16 10:01 Last Admin: 05/26/16 10:08 Dose: 125 mg Pantoprazole Sodium 80 mg/ (Sodium Chloride) 100 mls @ 10 mls/hr IV .Q10H [facility] Last Admin: 05/26/16 15:30 Dose: 10 mls/hr Imipenem/Cilastatin Sodium 250 (mg/ Sodium Chloride) 100 mls @ 100 mls/hr IVPB Q6H [facility] Last Admin: 05/26/16 13:30 Dose: 100 mls/hr Insulin Aspart (Novolog) 0 unit SC Q6 [facility] PRN Reason: Protocol Last Admin: 05/26/16 18:23 Dose: Not Given Latanoprost (Xalatan Opht) 0 ml OU HS [facility] Last Admin: 05/25/16 21:05 Dose: 2.5 ml Nystatin (Mycostatin Cream) 0 ea TOP TID [facility] Last Admin: 05/26/16 18:21 Dose: 1 applic Tamsulosin HCl (Flomax) 0.4 mg PO DAILY [facility] Last Admin: 05/26/16 10:07 Dose: Not Given - Labs Labs: 05/26/16 14:58 05/26/16 06:21 PT 10.8 SECONDS (9.7-12.2) 05/23/16 05:59 INR 1.0 05/23/16 05:59 APTT 25 SECONDS (21-34) 05/23/16 05:59 Attending/Attestation - Attestation I have personally seen and examined this patient.: Yes I have fully participated in the care of the patient.: Yes I have reviewed all pertinent clinical information, including history, physical exam and plan: Yes Notes (Text): 05/26/16 19:20 Patient seen and examined with GI fellow on rounds this am. This is a 85 year old male with history of anemia requiring transfusion 04/2015 on scheduled outpatient Iron infusions with Dr. Jackson, [place] complicated by CAD s/p 3 vessel CABG 2012 previously on Plavix prior to admission 04/2016, moderate aortic stenosis, ischemic cardiomyopathy 35-40%, CKD Stage 3, Hypertension, Hyperlipidemia presenting with weakness and blood in stool. EGD (05/23) with nonbleeding duodenal ulcer, Patrick Class IIc, LA grade esophagitis D, gastric ulcers, duodenal bulb/sweep ulcer with pigmented protrubence. Repeat EGD on showed duodenal ulcer with stigmata of recent bleed s/p gold probe and epinephrine. Dropped Hb this am by 1 gm/dl with maroon stools- likely old blood as this was the first bowel movement since repeat EGD. Continue PPI gtt for total 72 hours and continue clear liquids. Will benefit from outpatient capsule
[2016-05-26 09:44] LABS: BASOPHIL 1 % (0-2); EOSINOPHIL 2 % (0-4); METAMYELOCYTE 1 % (0-0); NEUTROPHIL 82 % (50-75); NUCLEATED RED BLOOD CELL 1 % (0-0); TOTAL CELLS COUNTED 100
[2016-05-26] MEDS: Nystatin 100,000 Units/gm Cream(15 gm) TOP SCH ×3 (10:00→18:21)
[2016-05-26] MEDS: Ferric Sodium Gluconat Complex 62.5 mg/5 ml Vial IVPB SCH (10:08)
[2016-05-26] MEDS: Dorzolamide 2% Opht Sol 10ml OU SCH ×3 (10:09→18:22)
[2016-05-26] MEDS: Brimonidine 0.2% Opth Sol (5ml) OU SCH ×3 (10:09→18:12)
[2016-05-26 15:03] LABS: BASO # 0.1 K/uL (0.0-0.2); BASO % 0.4 % (0.0-2.0); EOS # 0.3 K/uL (0.0-0.7); EOS % 1.7 % (0.0-4.0); HEMATOCRIT 24.7 % (35.0-51.0); LYMPH % 6.7 % (20.0-40.0); MEAN CELL VOLUME 87.6 fL (80.0-94.0); MEAN CORPUSCULAR HEMOGLOBIN 27.9 pg (27.0-31.0); MEAN CORPUSCULAR HGB CONC 31.8 g/dL (33.0-37.0); MEAN PLATELET VOLUME 7.5 fL (7.2-11.7); MONO # 0.9 K/uL (0.0-0.8); NRBC % 0.2 % (0.0-2.0); PLATELET COUNT 175 K/uL (130-400); RED CELL DISTRIBUTION WIDTH 18.2 % (11.5-14.5); WHITE BLOOD COUNT 14.5 K/uL (4.8-10.8)
[2016-05-26 15:33] LABS: EOSINOPHIL 1 % (0-4); NEUTROPHIL 81 % (50-75); NUCLEATED RED BLOOD CELL 2 % (0-0); TOTAL CELLS COUNTED 100
--- NOTE | 2016-05-26 17:26 | CP.PCM.PN ---
Subjective - Date & Time of Evaluation Date of Evaluation: 05/26/16 Time of Evaluation: 01:00 - Subjective Subjective: clinically same Objective - Vital Signs/Intake and Output Vital Signs (last 24 hours): Temp Pulse Resp BP Pulse Ox 97.6 F 91 H 14 118/68 100 05/26/16 16:00 05/26/16 16:00 05/26/16 16:00 05/26/16 15:47 05/26/16 16:00 Intake and Output: 05/26/16 05/26/16 06:59 18:59 Intake Total 926 1325 Output Total 726 504 Balance 200 821 - Medications Medications: Current Medications Brimonidine Tartrate (Alphagan 0.2% Opht) 0 ml OU TID [facility] Last Admin: 05/26/16 10:09 Dose: 1 drop Dorzolamide HCl (Trusopt) 0 ml OU TID [facility] Last Admin: 05/26/16 10:09 Dose: 1 drop Ferric Sodium Gluconate Complex (Ferrlecit) 125 mg IVPB DAILY [facility] Stop: 05/27/16 10:01 Last Admin: 05/26/16 10:08 Dose: 125 mg Pantoprazole Sodium 80 mg/ (Sodium Chloride) 100 mls @ 10 mls/hr IV .Q10H [facility] Last Admin: 05/26/16 04:01 Dose: 10 mls/hr Imipenem/Cilastatin Sodium 250 (mg/ Sodium Chloride) 100 mls @ 100 mls/hr IVPB Q6H [facility] Last Admin: 05/26/16 06:36 Dose: 100 mls/hr Insulin Aspart (Novolog) 0 unit SC Q6 [facility] PRN Reason: Protocol Last Admin: 05/26/16 15:39 Dose: Not Given Latanoprost (Xalatan Opht) 0 ml OU HS [facility] Last Admin: 05/25/16 21:05 Dose: 2.5 ml Nystatin (Mycostatin Cream) 0 ea TOP TID [facility] Last Admin: 05/25/16 19:07 Dose: 1 applic Tamsulosin HCl (Flomax) 0.4 mg PO DAILY [facility] Last Admin: 05/26/16 10:07 Dose: Not Given - Labs Labs: 05/26/16 14:58 05/26/16 06:21 PT 10.8 SECONDS (9.7-12.2) 05/23/16 05:59 INR 1.0 05/23/16 05:59 APTT 25 SECONDS (21-34) 05/23/16 05:59 - Constitutional Appears: Well - Head Exam Head Exam: ATRAUMATIC, NORMAL INSPECTION, NORMOCEPHALIC - Eye Exam Eye Exam: EOMI, Normal appearance, PERRL Pupil Exam: NORMAL ACCOMODATION, PERRL - ENT Exam ENT Exam: Mucous Membranes Moist, Normal Exam - Neck Exam Neck Exam: Full ROM, Normal Inspection. absent: Lymphadenopathy - Respiratory Exam Respiratory Exam: Decreased Breath Sounds - Cardiovascular Exam Cardiovascular Exam: REGULAR RHYTHM, +S1, +S2 - GI/Abdominal Exam GI & Abdominal Exam: Soft, Diminished Bowel Sounds - Rectal Exam Rectal Exam: Deferred Assessment and Plan (1) Acute renal failure Status: Acute (2) Anemia Status: Acute (3) BPH (benign prostatic hyperplasia) Status: Acute (4) Bilateral edema of lower extremity Status: Acute (5) DVT prophylaxis Status: Acute (6) Dry gangrene Status: Acute (7) Gastrointestinal hemorrhage Status: Acute (8) Hypochromic microcytic anemia Status: Acute (9) Hypovolemic shock Status: Acute (10) Memory difficulty Status: Acute (11) Paresthesia of both lower extremities Status: Acute (12) Pneumonia Status: Acute (13) CHF (congestive heart failure) Status: Chronic (14) Diabetes mellitus Status: Chronic - Assessment and Plan (Free Text) Plan: f/u with GI f/u with ID f/u with government minister continue monitor H/H protonix Imipenam/Cilastatin Novolog
[2016-05-26] MEDS: Latanoprost 2.5 ml Opht Soln OU SCH (22:31)
[2016-05-27] MEDS: Pantoprazole 80 MG in Sodium Chloride 0.9% 100 ML IV SCH ×4 (01:08→21:40)
[2016-05-27 06:05] LABS: BASO # 0.1 K/uL (0.0-0.2); BASO % 0.4 % (0.0-2.0); EOS # 0.2 K/uL (0.0-0.7); EOS % 1.6 % (0.0-4.0); HEMATOCRIT 23.7 % (35.0-51.0); LYMPH # 1.2 K/uL (1.0-4.3); LYMPH % 8.4 % (20.0-40.0); MEAN CELL VOLUME 87.6 fL (80.0-94.0); MEAN CORPUSCULAR HEMOGLOBIN 28.2 pg (27.0-31.0); MEAN CORPUSCULAR HGB CONC 32.2 g/dL (33.0-37.0); MEAN PLATELET VOLUME 7.8 fL (7.2-11.7); MONO # 0.8 K/uL (0.0-0.8); MONO % 6.1 % (0.0-10.0); NRBC % 0.4 % (0.0-2.0); PLATELET COUNT 178 K/uL (130-400); RED CELL DISTRIBUTION WIDTH 18.6 % (11.5-14.5)
[2016-05-27 06:13] LABS: POTASSIUM 3.6 mmol/L (3.6-5.2)
[2016-05-27 06:16] LABS: ALB/GLOB RATIO 0.7 (1.0-2.1); BILIRUBIN,TOTAL 0.5 mg/dL (0.2-1.3); PHOSPHOROUS 2.4 mg/dL (2.5-4.5); TOTAL PROTEIN 4.5 g/dL (6.3-8.3)
[2016-05-27 06:17] LABS: CALCIUM 7.1 mg/dl (8.6-10.4); MAGNESIUM 1.9 mg/dL (1.6-2.3)
[2016-05-27] MEDS: (Novolog) Insulin Aspart, Recombinant 100 u/ml 10 ml vial SC SCH ×4 (07:30→21:41)
--- NOTE | 2016-05-27 07:36 | CP.CCUPN ---
<Supa Mclean - Last Filed: 05/27/16 11:58> CCU Subjective - Physician Review Subjective (Free Text): 05/23/16 18:00 Patient seen at beside with no acute issues. Patient had upper GI endoscopy today. Patient a bit lethargic afterwards with recommendations made.for diet advancement to clears once with improved mental status. ROS could not be obtained at the time due to somnolence. 05/26/16 14:47 Pt seen and examined in no acute distress. No significant events overnight per nursing. Patient somnolent at time of initial evaluation. Family present later on bedside. A ROS could not be obtained at this time due to somnolence. 05/27/16 07:32 Pt seen and examined in no acute distress. Patient more alert today and vocally responsive. Patient had an episode of melena this morning per nursing . Patient tolerating clears. Patient medically stable for transfer to telemetry floor. CCU Objective - Vital Signs / Intake & Output Vital Signs (Last 4 hours): Vital Signs Temp Pulse Resp BP Pulse Ox 05/27/16 07:00 97 H 16 99 05/27/16 06:47 90 14 125/62 05/27/16 06:12 98 H 15 98 05/27/16 06:00 89 13 99 05/27/16 05:55 86 13 99 05/27/16 05:47 90 16 112/65 97 05/27/16 05:00 95 H 17 98 05/27/16 04:47 81 12 118/60 99 05/27/16 04:28 84 11 L 100 05/27/16 04:00 98.3 F 86 12 100 05/27/16 03:47 93 H 14 129/71 99 Intake and Output (Last 8hrs): Intake & Output 05/26/16 05/27/16 05/27/16 22:59 06:59 14:59 Intake Total 330 660 Output Total 150 800 Balance 180 -140 Weight 156 lb Intake: Intake, IV Amount 330 420 Right Distal Port Forearm 300 Right Proximal Port 30 Forearm Right Forearm 420 Oral 240 Output: Urine 150 800 Urethral (Cardenas) 150 800 - Physical Exam Head: Positive for: Atraumatic, Normocephalic Pupils: Positive for: PERRL Extroacular Muscles: Positive for: EOMI Conjunctiva: Positive for: Normal Mouth: Positive for: Moist Mucous Membranes Neck: Positive for: Normal Range of Motion Respiratory/Chest: Positive for: Clear to Auscultation, Good Air Exchange. Negative for: Wheezes Cardiovascular: Positive for: Normal S1, S2 Abdomen: Positive for: Tenderness, Normal Bowel Sounds. Negative for: Peritoneal Signs Back: Positive for: Normal Inspection Upper Extremity: Positive for: Normal Inspection Lower Extremity: Positive for: Normal Inspection Neurological: Positive for: CN II-XII Intact Skin: Positive for: Warm, Dry Psychiatric: Positive for: Lethargic - Medications Active Medications: Active Medications Generic Name Dose Route Start Last Admin Trade Name Freq PRN Reason Stop Dose Admin Brimonidine Tartrate 0 ml 05/22/16 14:00 05/26/16 18:12 Alphagan 0.2% Opht OU 1 drop TID LASHA Administration Dorzolamide HCl 0 ml 05/22/16 14:00 05/26/16 18:22 Trusopt OU 1 drop TID LASHA Administration Ferric Sodium Gluconate Complex 125 mg 05/25/16 10:00 05/26/16 10:08 Ferrlecit IVPB 05/27/16 10:01 125 mg DAILY LASHA Administration Pantoprazole Sodium 80 mg/ 100 mls @ 10 mls/hr 05/24/16 12:45 05/27/16 01:08 Sodium Chloride IV 10 mls/hr .Q10H LASHA Administration Imipenem/Cilastatin Sodium 250 100 mls @ 100 mls/hr 05/24/16 19:15 05/27/16 06: 17 mg/ Sodium Chloride IVPB 100 mls/hr Q6H LASHA Administration Insulin Aspart 0 unit 05/26/16 22:00 05/26/16 22:38 Novolog SC Not Given ACHS LASHA Protocol Latanoprost 0 ml 05/22/16 22:00 05/26/16 22:31 Xalatan Opht OU 2.5 ml HS LASHA Administration Nystatin 0 ea 05/22/16 10:15 05/26/16 18:21 Mycostatin Cream TOP 1 applic TID LASHA Administration Tamsulosin HCl 0.4 mg 05/22/16 10:00 05/26/16 10:07 Flomax PO Not Given DAILY LASHA - Patient Studies Lab Studies: Lab Studies 05/27/16 05/27/16 05/26/16 Range/Units 07:17 05:53 22:25 WBC 14.0 H (4.8-10.8) K/uL RBC 2.71 L (4.40-5.90) Mil/uL Hgb 7.6 L (12.0-18.0) g/dL Hct 23.7 L (35.0-51.0) % MCV 87.6 (80.0-94.0) fL MCH 28.2 (27.0-31.0) pg MCHC 32.2 L (33.0-37.0) g/dL RDW 18.6 H (11.5-14.5) % Plt Count 178 (130-400) K/uL MPV 7.8 (7.2-11.7) fL Neut % (Auto) 83.5 H (50.0-75.0) % Lymph % (Auto) 8.4 L (20.0-40.0) % [place] % (Auto) 6.1 (0.0-10.0) % Eos % (Auto) 1.6 (0.0-4.0) % Baso % (Auto) 0.4 (0.0-2.0) % Neut # 11.6 H (1.8-7.0) K/uL Lymph # 1.2 (1.0-4.3) K/uL [place] # 0.8 (0.0-0.8) K/uL Eos # 0.2 (0.0-0.7) K/uL Baso # 0.1 (0.0-0.2) K/uL Neutrophils % (Manual) (50-75) % Band Neutrophils % (0-2) % Lymphocytes % (Manual) (20-40) % Monocytes % (Manual) (0-10) % Eosinophils % (Manual) (0-4) % Basophils % (Manual) (0-2) % Metamyelocytes % (0-0) % Nucleated RBC % (0-0) % Platelet Estimate (NORMAL) Polychromasia Hypochromasia (manual) Anisocytosis (manual) Tear Drop Cells Ovalocytes [place] Cells Sodium 154 H (132-148) mmol/L Potassium 3.6 (3.6-5.2) mmol/L Chloride 123 H (98-107) mmol/L Carbon Dioxide 18 L (22-30) mmol/L Anion Gap 17 (10-20) BUN 19 (9-20) mg/dL Creatinine 1.4 (0.8-1.5) MG/DL Est GFR ( Amer) 58 Est GFR (Non-Af Amer) 48 POC Glucose (mg/dL) 115 H 139 H (65-110) mg/dL Random Glucose 98 (75-110) mg/dL Calcium 7.1 L (8.6-10.4) mg/dl Phosphorus 2.4 L (2.5-4.5) mg/dL Magnesium 1.9 (1.6-2.3) mg/dL Total Bilirubin 0.5 (0.2-1.3) mg/dL AST 18 (17-59) U/L ALT 27 (21-72) U/L Alkaline Phosphatase 54 (38-126) U/L Total Protein 4.5 L (6.3-8.3) g/dL Albumin 1.9 L (3.5-5.0) g/dL Globulin 2.7 (2.2-3.9) gm/dL Albumin/Globulin Ratio 0.7 L (1.0-2.1) 05/26/16 05/26/16 05/26/16 Range/Units 17:49 14:58 06:21 WBC 14.5 H (4.8-10.8) K/uL RBC 2.82 L (4.40-5.90) Mil/uL Hgb 7.9 L (12.0-18.0) g/dL Hct 24.7 L (35.0-51.0) % MCV 87.6 (80.0-94.0) fL MCH 27.9 (27.0-31.0) pg MCHC 31.8 L (33.0-37.0) g/dL RDW 18.2 H (11.5-14.5) % Plt Count 175 (130-400) K/uL MPV 7.5 (7.2-11.7) fL Neut % (Auto) 85.2 H (50.0-75.0) % Lymph % (Auto) 6.7 L (20.0-40.0) % [place] % (Auto) 6.0 (0.0-10.0) % Eos % (Auto) 1.7 (0.0-4.0) % Baso % (Auto) 0.4 (0.0-2.0) % Neut # 12.3 H (1.8-7.0) K/uL Lymph # 1.0 (1.0-4.3) K/uL [place] # 0.9 H (0.0-0.8) K/uL Eos # 0.3 (0.0-0.7) K/uL Baso # 0.1 (0.0-0.2) K/uL Neutrophils % (Manual) 81 H 82 H (50-75) % Band Neutrophils % 5 H 5 H (0-2) % Lymphocytes % (Manual) 5 L 4 L (20-40) % Monocytes % (Manual) 8 5 (0-10) % Eosinophils % (Manual) 1 2 (0-4) % Basophils % (Manual) 1 (0-2) % Metamyelocytes % 1 H (0-0) % Nucleated RBC % 2 H 1 H (0-0) % Platelet Estimate Normal Normal (NORMAL) Polychromasia Slight Hypochromasia (manual) Slight Slight Anisocytosis (manual) Slight Slight Tear Drop Cells Slight Ovalocytes Slight Slight [place] Cells Slight Sodium (132-148) mmol/L Potassium (3.6-5.2) mmol/L Chloride (98-107) mmol/L Carbon Dioxide (22-30) mmol/L Anion Gap (10-20) BUN (9-20) mg/dL Creatinine (0.8-1.5) MG/DL Est GFR ( Amer) Est GFR (Non-Af Amer) POC Glucose (mg/dL) 130 H (65-110) mg/dL Random Glucose (75-110) mg/dL Calcium (8.6-10.4) mg/dl Phosphorus (2.5-4.5) mg/dL Magnesium (1.6-2.3) mg/dL Total Bilirubin (0.2-1.3) mg/dL AST (17-59) U/L ALT (21-72) U/L Alkaline Phosphatase (38-126) U/L Total Protein (6.3-8.3) g/dL Albumin (3.5-5.0) g/dL Globulin (2.2-3.9) gm/dL Albumin/Globulin Ratio (1.0-2.1) Laboratory Results - last 24 hr 05/26/16 05/26/16 05/26/16 06:21 14:58 17:49 WBC 14.5 H RBC 2.82 L Hgb 7.9 L Hct 24.7 L MCV 87.6 MCH 27.9 MCHC 31.8 L RDW 18.2 H Plt Count 175 MPV 7.5 Neut % (Auto) 85.2 H Lymph % (Auto) 6.7 L [place] % (Auto) 6.0 Eos % (Auto) 1.7 Baso % (Auto) 0.4 Neut # 12.3 H Lymph # 1.0 [place] # 0.9 H Eos # 0.3 Baso # 0.1 Neutrophils % (Manual) 82 H 81 H Band Neutrophils % 5 H 5 H Lymphocytes % (Manual) 4 L 5 L Monocytes % (Manual) 5 8 Eosinophils % (Manual) 2 1 Basophils % (Manual) 1 Metamyelocytes % 1 H Nucleated RBC % 1 H 2 H Platelet Estimate Normal Normal Polychromasia Slight Hypochromasia (manual) Slight Slight Anisocytosis (manual) Slight Slight Tear Drop Cells Slight Ovalocytes Slight Slight [place] Cells Slight Sodium Potassium Chloride Carbon Dioxide Anion Gap BUN Creatinine Est GFR ( Amer) Est GFR (Non-Af Amer) POC Glucose (mg/dL) 130 H Random Glucose Calcium Phosphorus Magnesium Total Bilirubin AST ALT Alkaline Phosphatase Total Protein Albumin Globulin Albumin/Globulin Ratio 05/26/16 05/27/16 05/27/16 22:25 05:53 07:17 WBC 14.0 H RBC 2.71 L Hgb 7.6 L Hct 23.7 L MCV 87.6 MCH 28.2 MCHC 32.2 L RDW 18.6 H Plt Count 178 MPV 7.8 Neut % (Auto) 83.5 H Lymph % (Auto) 8.4 L [place] % (Auto) 6.1 Eos % (Auto) 1.6 Baso % (Auto) 0.4 Neut # 11.6 H Lymph # 1.2 [place] # 0.8 Eos # 0.2 Baso # 0.1 Neutrophils % (Manual) Band Neutrophils % Lymphocytes % (Manual) Monocytes % (Manual) Eosinophils % (Manual) Basophils % (Manual) Metamyelocytes % Nucleated RBC % Platelet Estimate Polychromasia Hypochromasia (manual) Anisocytosis (manual) Tear Drop Cells Ovalocytes [place] Cells Sodium 154 H Potassium 3.6 Chloride 123 H Carbon Dioxide 18 L Anion Gap 17 BUN 19 Creatinine 1.4 Est GFR ( Amer) 58 Est GFR (Non-Af Amer) 48 POC Glucose (mg/dL) 139 H 115 H Random Glucose 98 Calcium 7.1 L Phosphorus 2.4 L Magnesium 1.9 Total Bilirubin 0.5 AST 18 ALT 27 Alkaline Phosphatase 54 Total Protein 4.5 L Albumin 1.9 L Globulin 2.7 Albumin/Globulin Ratio 0.7 L Fingerstick Blood Sugar Results: 139 Review of Systems - EENT Eyes: As Per HPI Ears: As Per HPI - Cardiovascular Cardiovascular: absent: Chest Pain, Chest Pain at Rest - Gastrointestinal Gastrointestinal: Abdominal Pain, Melena. absent: Vomiting - Integumentary Integumentary: absent: Change in Hair, Dry Skin - Neurological Neurological: absent: Abnormal Gait, Abnormal Movements, Weakness - Psychiatric Psychiatric: absent: Abnormal Sleep Pattern Critical Care Progress Note - Nutrition Nutrition: Nutrition Category Date Time Status NPO Diet [DIET] Diets 05/27/16 Breakfast Active Assessment/Plan - Assessment and Plan (Free Text) Assessment: 85 year old male with history of anemia requiring transfusion 04/2015, [place] complicated by CAD s/p 3 vessel CABG 2012 previously on Plavix prior to admission 04/2016, moderate aortic stenosis, ischemic cardiomyopathy 35-40%, CKD Stage 3, Hypertension, Hyperlipidemia presenting with weakness and blood in stool. Recent discharge for pneumonia to rehabilitation center 04/30/16. Acute treatment of acute anemia, FOBT positive, and hypotension. Prior EGD and colonoscopy 04/2015 showed gastric AVM, normal colon, and internal hemorrhoids. Status post EGD consistent with esophagitis, gastric ulcers, large duodenal bulb/sweep ulcer with stigmata of recent bleed- pigmented spot, status post epinephrine injection. Patient medically stable for transfer to telemetry floor. Plan: Neuro: Neurocheck q4 Cardio: Tachycardia Hypotension, with history of Hypertension Monitor 05/22 EKG: right BBB, PACs, PVCs Sinus rhythm at 69 bpm. 05/21 EKG: NSR @ 100, Right BBB, septal infarct, age undetermined ENT: Brimonidine tartrate 1 drop in affected eyes TID LASHA Dorzolamide 1 drop in affected eyes TID LASHA Pulm: Maintain O2 Sat >92% Guaifenesin 600 mg PO BID Imagin/17 CXR: Mild increased pulmonary vascular congestion. 05/22 CXR: No interval pathology indicated Endo: DM Maintain euglycemia Sliding scale Novolog units SC Q6 Latanoprost OU HS LASHA GI: Melena in AM 05/27- Remain on clears- GI recommendations to continue PPI infusions for an additional 24-48 hrs. Monitor Daily CMP Procedures: 05/23 EGD: GE junction @ 35 cm hiatal narrowing @37 cm. Post op diagnosis: non- bleeding gastric ulcer. Gastritis. Esophagitis, hiatal hernia. 05/23 EGD report: LA Grade D esophagitis ( one or more mucosal breaks involving 75% of esophageal circumference) no bleeding found. Biopsies taken for histology. 4mm superficial non-bleeding ulcer in gastric body. 3 mm non bleeding ulcer in gastric antrum. 1 cm hiatus hernia present. Non-bleeding linear duodenal ulcer with black pigmented spot (Patrick Class IIC) found in duodenal bulb. 05/26: Per GI, no colonoscopy per now. Patient on clear liquid diet and will monitor flexiseal. F/U repeat labs at noon : BPH Monitor I/Os Tamsulosin 0.4 mg PO daily Renal: Monitor I/Os NS 1000 cc @ 100 cc/hr IV Q10H Heme: H&H 7.6/23.7-Monitor H&H. May require transfusion however per HemeOnc, patient has established anemia. F/U recommendations Daily CBC Folic Acid 1 mg IV MSK: PT/OT eval ID: WBC 14 Daily CBC Cefepime 1 grm 50 cc @ 100 cc/hr Nystatin cream TID LASHA Vancomycin 200 cc @ 133.33 cc/hr IVPB Q24H UTI with Proteus mirabilis continue Primaxin. Stopped vancomycin Prophylaxis: DVT: held due to bleed, SCDs on GI: Protonix drip Disp: Telemetry floor <Tobi Laguna S - Last Filed: 05/27/16 18:08> CCU Objective - Vital Signs / Intake & Output Vital Signs (Last 4 hours): Vital Signs Temp Pulse Resp BP Pulse Ox 05/27/16 17:13 80 12 124/58 L 98 05/27/16 16:00 97.9 F 05/27/16 15:56 78 14 97/60 L 100 05/27/16 15:00 86 12 97 Intake and Output (Last 8hrs): Intake & Output 05/27/16 05/27/16 05/27/16 06:59 14:59 22:59 Intake Total 660 490 Output Total 800 Balance -140 490 Weight 156 lb Intake: Intake, IV Amount 420 50 Right Forearm 420 50 Oral 240 240 Other 200 Output: Urine 800 Urethral (Cardenas) 800 - Medications Active Medications: Active Medications Generic Name Dose Route Start Last Admin Trade Name Freq PRN Reason Stop Dose Admin Brimonidine Tartrate 0 ml 05/22/16 14:00 05/27/16 17:26 Alphagan 0.2% Opht OU 1 drop TID LASHA Administration Dorzolamide HCl 0 ml 05/22/16 14:00 05/27/16 17:26 Trusopt OU 1 drop TID LASHA Administration Pantoprazole Sodium 80 mg/ 100 mls @ 10 mls/hr 05/24/16 12:45 05/27/16 11:10 Sodium Chloride IV Not Given .Q10H LASHA Imipenem/Cilastatin Sodium 250 100 mls @ 100 mls/hr 05/24/16 19:15 05/27/16 12: 29 mg/ Sodium Chloride IVPB 100 mls/hr Q6H LASHA Administration Insulin Aspart 0 unit 05/26/16 22:00 05/27/16 16:40 Novolog SC Not Given ACHS LASHA Protocol Latanoprost 0 ml 05/22/16 22:00 05/26/16 22:31 Xalatan Opht OU 2.5 ml HS LASHA Administration Nystatin 0 ea 05/22/16 10:15 05/27/16 17:26 Mycostatin Cream TOP 1 applic TID LASHA Administration Tamsulosin HCl 0.4 mg 05/22/16 10:00 05/27/16 09:22 Flomax PO 0.4 mg DAILY LASHA Administration - Patient Studies Lab Studies: Lab Studies 05/27/16 05/27/16 05/27/16 Range/Units 16:11 11:39 07:17 WBC (4.8-10.8) K/uL RBC (4.40-5.90) Mil/uL Hgb (12.0-18.0) g/dL Hct (35.0-51.0) % MCV (80.0-94.0) fL MCH (27.0-31.0) pg MCHC (33.0-37.0) g/dL RDW (11.5-14.5) % Plt Count (130-400) K/uL MPV (7.2-11.7) fL Neut % (Auto) (50.0-75.0) % Lymph % (Auto) (20.0-40.0) % [place] % (Auto) (0.0-10.0) % Eos % (Auto) (0.0-4.0) % Baso % (Auto) (0.0-2.0) % Neut # (1.8-7.0) K/uL Lymph # (1.0-4.3) K/uL [place] # (0.0-0.8) K/uL Eos # (0.0-0.7) K/uL Baso # (0.0-0.2) K/uL Neutrophils % (Manual) (50-75) % Band Neutrophils % (0-2) % Lymphocytes % (Manual) (20-40) % Monocytes % (Manual) (0-10) % Eosinophils % (Manual) (0-4) % Metamyelocytes % (0-0) % Myelocytes % (0-0) % Platelet Estimate (NORMAL) Hypochromasia (manual) Poikilocytosis (manual Anisocytosis (manual) Target Cells Ovalocytes [place] Cells Sodium (132-148) mmol/L Potassium (3.6-5.2) mmol/L Chloride (98-107) mmol/L Carbon Dioxide (22-30) mmol/L Anion Gap (10-20) BUN (9-20) mg/dL Creatinine (0.8-1.5) MG/DL Est GFR ( Amer) Est GFR (Non-Af Amer) POC Glucose (mg/dL) 149 H 176 H 115 H (65-110) mg/dL Random Glucose (75-110) mg/dL Calcium (8.6-10.4) mg/dl Phosphorus (2.5-4.5) mg/dL Magnesium (1.6-2.3) mg/dL Total Bilirubin (0.2-1.3) mg/dL AST (17-59) U/L ALT (21-72) U/L Alkaline Phosphatase (38-126) U/L Total Protein (6.3-8.3) g/dL Albumin (3.5-5.0) g/dL Globulin (2.2-3.9) gm/dL Albumin/Globulin Ratio (1.0-2.1) 05/27/16 05/26/16 Range/Units 05:53 22:25 WBC 14.0 H (4.8-10.8) K/uL RBC 2.71 L (4.40-5.90) Mil/uL Hgb 7.6 L (12.0-18.0) g/dL Hct 23.7 L (35.0-51.0) % MCV 87.6 (80.0-94.0) fL MCH 28.2 (27.0-31.0) pg MCHC 32.2 L (33.0-37.0) g/dL RDW 18.6 H (11.5-14.5) % Plt Count 178 (130-400) K/uL MPV 7.8 (7.2-11.7) fL Neut % (Auto) 83.5 H (50.0-75.0) % Lymph % (Auto) 8.4 L (20.0-40.0) % [place] % (Auto) 6.1 (0.0-10.0) % Eos % (Auto) 1.6 (0.0-4.0) % Baso % (Auto) 0.4 (0.0-2.0) % Neut # 11.6 H (1.8-7.0) K/uL Lymph # 1.2 (1.0-4.3) K/uL [place] # 0.8 (0.0-0.8) K/uL Eos # 0.2 (0.0-0.7) K/uL Baso # 0.1 (0.0-0.2) K/uL Neutrophils % (Manual) 81 H (50-75) % Band Neutrophils % 8 H (0-2) % Lymphocytes % (Manual) 4 L (20-40) % Monocytes % (Manual) 3 (0-10) % Eosinophils % (Manual) 1 (0-4) % Metamyelocytes % 2 H (0-0) % Myelocytes % 1 H (0-0) % Platelet Estimate Normal (NORMAL) Hypochromasia (manual) Slight Poikilocytosis (manual Slight Anisocytosis (manual) Slight Target Cells Slight Ovalocytes Slight [place] Cells Slight Sodium 154 H (132-148) mmol/L Potassium 3.6 (3.6-5.2) mmol/L Chloride 123 H (98-107) mmol/L Carbon Dioxide 18 L (22-30) mmol/L Anion Gap 17 (10-20) BUN 19 (9-20) mg/dL Creatinine 1.4 (0.8-1.5) MG/DL Est GFR ( Amer) 58 Est GFR (Non-Af Amer) 48 POC Glucose (mg/dL) 139 H (65-110) mg/dL Random Glucose 98 (75-110) mg/dL Calcium 7.1 L (8.6-10.4) mg/dl Phosphorus 2.4 L (2.5-4.5) mg/dL Magnesium 1.9 (1.6-2.3) mg/dL Total Bilirubin 0.5 (0.2-1.3) mg/dL AST 18 (17-59) U/L ALT 27 (21-72) U/L Alkaline Phosphatase 54 (38-126) U/L Total Protein 4.5 L (6.3-8.3) g/dL Albumin 1.9 L (3.5-5.0) g/dL Globulin 2.7 (2.2-3.9) gm/dL Albumin/Globulin Ratio 0.7 L (1.0-2.1) Laboratory Results - last 24 hr 05/26/16 05/27/16 05/27/16 22:25 05:53 07:17 WBC 14.0 H RBC 2.71 L Hgb 7.6 L Hct 23.7 L MCV 87.6 MCH 28.2 MCHC 32.2 L RDW 18.6 H Plt Count 178 MPV 7.8 Neut % (Auto) 83.5 H Lymph % (Auto) 8.4 L [place] % (Auto) 6.1 Eos % (Auto) 1.6 Baso % (Auto) 0.4 Neut # 11.6 H Lymph # 1.2 [place] # 0.8 Eos # 0.2 Baso # 0.1 Neutrophils % (Manual) 81 H Band Neutrophils % 8 H Lymphocytes % (Manual) 4 L Monocytes % (Manual) 3 Eosinophils % (Manual) 1 Metamyelocytes % 2 H Myelocytes % 1 H Platelet Estimate Normal Hypochromasia (manual) Slight Poikilocytosis (manual Slight Anisocytosis (manual) Slight Target Cells Slight Ovalocytes Slight [place] Cells Slight Sodium 154 H Potassium 3.6 Chloride 123 H Carbon Dioxide 18 L Anion Gap 17 BUN 19 Creatinine 1.4 Est GFR ( Amer) 58 Est GFR (Non-Af Amer) 48 POC Glucose (mg/dL) 139 H 115 H Random Glucose 98 Calcium 7.1 L Phosphorus 2.4 L Magnesium 1.9 Total Bilirubin 0.5 AST 18 ALT 27 Alkaline Phosphatase 54 Total Protein 4.5 L Albumin 1.9 L Globulin 2.7 Albumin/Globulin Ratio 0.7 L 05/27/16 05/27/16 11:39 16:11 WBC RBC Hgb Hct MCV MCH MCHC RDW Plt Count MPV Neut % (Auto) Lymph % (Auto) [place] % (Auto) Eos % (Auto) Baso % (Auto) Neut # Lymph # [place] # Eos # Baso # Neutrophils % (Manual) Band Neutrophils % Lymphocytes % (Manual) Monocytes % (Manual) Eosinophils % (Manual) Metamyelocytes % Myelocytes % Platelet Estimate Hypochromasia (manual) Poikilocytosis (manual Anisocytosis (manual) Target Cells Ovalocytes [place] Cells Sodium Potassium Chloride Carbon Dioxide Anion Gap BUN Creatinine Est GFR ( Amer) Est GFR (Non-Af Amer) POC Glucose (mg/dL) 176 H 149 H Random Glucose Calcium Phosphorus Magnesium Total Bilirubin AST ALT Alkaline Phosphatase Total Protein Albumin Globulin Albumin/Globulin Ratio Critical Care Progress Note - Nutrition Nutrition: Nutrition Category Date Time Status Liquid Diet [DIET] Diets 05/27/16 Breakfast Active Assessment/Plan (1) Gastrointestinal hemorrhage Current Visit: Yes Status: Acute Comment: Status post EGD with hemostasis today for rectal bleeding Transfusions and RBCs Follow-up H&H Continue ICU monitoring (2) Acute renal failure Current Visit: No Status: Acute Attending/Attestation - Attestation I have personally seen and examined this patient.: Yes I have fully participated in the care of the patient.: Yes I have reviewed all pertinent clinical information: Yes Notes (Text): 05/27/16 18:08 Patient seen and examined in the intensive care unit. 85 year old male with history of anemia requiring transfusion 04/2015, [place] complicated by CAD s/p 3 vessel CABG 2012 previously on Plavix prior to admission 04/2016, moderate aortic stenosis, ischemic cardiomyopathy 35-40%, CKD Stage 3, Hypertension, Hyperlipidemia presenting with weakness and blood in stool. Recent discharge for pneumonia to rehabilitation center 04/30/16. Acute treatment of acute anemia, FOBT positive, and hypotension. Prior EGD and colonoscopy 04/2015 showed gastric AVM, normal colon, and internal hemorrhoids. Status post EGD consistent with esophagitis, gastric ulcers, large duodenal bulb/sweep ulcer with stigmata of recent bleed- pigmented spot, status post epinephrine injection. Patient medically stable for transfer to telemetry floor.
--- NOTE | 2016-05-27 07:40 | CP.PCM.PN ---
<MyleneDenae - Last Filed: 05/27/16 08:56> Subjective - Date & Time of Evaluation Date of Evaluation: 05/27/16 Time of Evaluation: 08:56 - Subjective Subjective: Gastroenterology Fellow/PGY4 Progress Note Patient continues to have left upper abdominal pain. Nurse notes dark stool this morning witnessed by myself as burgundy-brown with small clots. Vital signs stable. A 12-point review of systems negative except for above. Objective - Vital Signs/Intake and Output Vital Signs (last 24 hours): Temp Pulse Resp BP Pulse Ox 98.3 F 97 H 16 125/62 99 05/27/16 04:00 05/27/16 07:00 05/27/16 07:00 05/27/16 06:47 05/27/16 07:00 Intake and Output: 05/27/16 05/27/16 06:59 18:59 Intake Total 660 Output Total 800 Balance -140 - Medications Medications: Current Medications Brimonidine Tartrate (Alphagan 0.2% Opht) 0 ml OU TID [facility] Last Admin: 05/26/16 18:12 Dose: 1 drop Dorzolamide HCl (Trusopt) 0 ml OU TID [facility] Last Admin: 05/26/16 18:22 Dose: 1 drop Ferric Sodium Gluconate Complex (Ferrlecit) 125 mg IVPB DAILY [facility] Stop: 05/27/16 10:01 Last Admin: 05/26/16 10:08 Dose: 125 mg Pantoprazole Sodium 80 mg/ (Sodium Chloride) 100 mls @ 10 mls/hr IV .Q10H [facility] Last Admin: 05/27/16 01:08 Dose: 10 mls/hr Imipenem/Cilastatin Sodium 250 (mg/ Sodium Chloride) 100 mls @ 100 mls/hr IVPB Q6H [facility] Last Admin: 05/27/16 06:17 Dose: 100 mls/hr Insulin Aspart (Novolog) 0 unit SC ACHS [facility] PRN Reason: Protocol Last Admin: 05/26/16 22:38 Dose: Not Given Latanoprost (Xalatan Opht) 0 ml OU HS [facility] Last Admin: 05/26/16 22:31 Dose: 2.5 ml Nystatin (Mycostatin Cream) 0 ea TOP TID [facility] Last Admin: 05/26/16 18:21 Dose: 1 applic Tamsulosin HCl (Flomax) 0.4 mg PO DAILY [facility] Last Admin: 05/26/16 10:07 Dose: Not Given - Labs Labs: 05/27/16 05:53 05/27/16 05:53 PT 10.8 SECONDS (9.7-12.2) 05/23/16 05:59 INR 1.0 05/23/16 05:59 APTT 25 SECONDS (21-34) 05/23/16 05:59 - Constitutional Appears: Non-toxic, No Acute Distress - Head Exam Head Exam: ATRAUMATIC, NORMOCEPHALIC - Eye Exam Eye Exam: EOMI, PERRL Pupil Exam: PERRL. absent: Miosis, Mydriatic - ENT Exam ENT Exam: Mucous Membranes Moist, Normal Oropharynx - Neck Exam Neck Exam: Full ROM, Normal Inspection - Respiratory Exam Respiratory Exam: Clear to Ausculation Bilateral. absent: Rales, Rhonchi, Wheezes - Cardiovascular Exam Cardiovascular Exam: RRR, +S1, +S2. absent: Gallop, Rubs - GI/Abdominal Exam GI & Abdominal Exam: Soft, Tenderness, Normal Bowel Sounds. absent: Distended, Firm, Guarding, Rigid, Organomegaly, Rebound Additional comments: LUQ tenderness - Rectal Exam Additional comments: red-brown moderate liquid stool - Extremities Exam Extremities Exam: Pedal Edema - Neurological Exam Neurological Exam: Alert, Awake - Psychiatric Exam Psychiatric exam: Normal Affect, Normal Mood - Skin Skin Exam: Diaphoretic, Intact, Normal Color, Warm Assessment and Plan - Assessment and Plan (Free Text) Assessment: 85 year old male with history of Anemia requiring transfusion 04/2015 on scheduled outpatient Iron infusions with Dr. Jackson, [place] complicated by CAD s/p 3 vessel CABG 2012 previously on Plavix prior to admission 04/2016, moderate aortic stenosis, ischemic cardiomyopathy 35-40%, CKD Stage 3, Hypertension, Hyperlipidemia presenting with weakness and blood in stool. Recent discharge for pneumonia to rehabilitation center 04/30/16. Acute treatment of acute anemia , FOBT positive, and hypotension. Prior EGD and colonoscopy 04/2015 showed gastric AVM, normal colon, and internal hemorrhoids. Acute on chronic normocytic anemia POD 4 EGD (05/23) with nonbleeding duodenal ulcer, Patrick Class IIc Melena, ABL anemia POD3 (05/24) EGD with duodenal ulcer and stigmata of recent bleed, Patrick Class Ib and IIc Multidrug resistent Proteus UTI Plan: >monitor hemodynamic stability and for recurrent overt GI blood loss >close monitoring , will continue to assess utility of repeat endoscopic evaluation >continue PPI drip to stop this afternoon, eric consider continuation if signs of ongoing blood loss >continue clear liquids >discussed with established Logistics Management Specialist, Dr. Jackson- iron deficiency anemia on Iron infusions -will plan for outpatient follow up >received 2 units pRBCs 05/22, 1U 05/24 >EGD 05/23 showing LA Grade D esophagitis, gastric ulcers, large duodenal bulb/ sweep ulcer with stigmata of recent bleed- pigmented spot >EGD 05/24- duodenal ulcer with stigmata of recent bleed s/p gold probe coagulation and epinephrine 1:[id number] injection >will benefit from EGD ulcer surveillance in 4-8 weeks >will benefit from outpatient capsule endoscopy outpatient <Jesse Davenport - Last Filed: 05/27/16 09:49> Objective - Vital Signs/Intake and Output Vital Signs (last 24 hours): Temp Pulse Resp BP Pulse Ox 97.4 F L 79 11 L 127/65 100 05/27/16 08:00 05/27/16 09:00 05/27/16 09:00 05/27/16 08:47 05/27/16 09:00 Intake and Output: 05/27/16 05/27/16 06:59 18:59 Intake Total 660 Output Total 800 Balance -140 - Medications Medications: Current Medications Brimonidine Tartrate (Alphagan 0.2% Opht) 0 ml OU TID [facility] Last Admin: 05/27/16 09:22 Dose: 1 drop Dorzolamide HCl (Trusopt) 0 ml OU TID [facility] Last Admin: 05/27/16 09:22 Dose: 1 drop Ferric Sodium Gluconate Complex (Ferrlecit) 125 mg IVPB DAILY [facility] Stop: 05/27/16 10:01 Last Admin: 05/27/16 09:21 Dose: 125 mg Pantoprazole Sodium 80 mg/ (Sodium Chloride) 100 mls @ 10 mls/hr IV .Q10H [facility] Last Admin: 05/27/16 09:28 Dose: 10 mls/hr Imipenem/Cilastatin Sodium 250 (mg/ Sodium Chloride) 100 mls @ 100 mls/hr IVPB Q6H [facility] Last Admin: 05/27/16 06:17 Dose: 100 mls/hr Insulin Aspart (Novolog) 0 unit SC ACHS [facility] PRN Reason: Protocol Last Admin: 05/27/16 07:30 Dose: Not Given Latanoprost (Xalatan Opht) 0 ml OU HS [facility] Last Admin: 05/26/16 22:31 Dose: 2.5 ml Nystatin (Mycostatin Cream) 0 ea TOP TID [facility] Last Admin: 05/27/16 09:23 Dose: 1 applic Tamsulosin HCl (Flomax) 0.4 mg PO DAILY [facility] Last Admin: 05/27/16 09:22 Dose: 0.4 mg - Labs Labs: 05/27/16 05:53 05/27/16 05:53 PT 10.8 SECONDS (9.7-12.2) 05/23/16 05:59 INR 1.0 05/23/16 05:59 APTT 25 SECONDS (21-34) 05/23/16 05:59 Attending/Attestation - Attestation I have personally seen and examined this patient.: Yes I have fully participated in the care of the patient.: Yes I have reviewed all pertinent clinical information, including history, physical exam and plan: Yes Notes (Text): 05/27/16 09:46 I have seen and examined patient with GI fellow. He remains in ICU critical care, feels weak and complaining of ongoing LUQ abdominal pain. He denies nausea, vomiting, fever/chills. He had one episode of melena this morning, no bowel movements overnight. Tolerating clear liquids without difficulty. Review of vitals from today shows tachycardia. CAD/CABG CKD HTN Iron deficiency anemia Upper GI bleeding, duodenal ulcer s/p EGD with bicap therapy UTI - Continue with antibiotic therapy as per medical team - H/H stable, continue to monitor - Continue with PPI infusion therapy for additional 24-48 hours - Clear liquid diet as tolerated - Will continue to monitor patient clinical course and reassess need for follow up endoscopic evaluation
[2016-05-27 07:57] LABS: EOSINOPHIL 1 % (0-4); METAMYELOCYTE 2 % (0-0); MYELOCYTE 1 % (0-0); NEUTROPHIL 81 % (50-75); TOTAL CELLS COUNTED 100
[2016-05-27] MEDS: Ferric Sodium Gluconat Complex 62.5 mg/5 ml Vial IVPB SCH (09:21)
[2016-05-27] MEDS: Dorzolamide 2% Opht Sol 10ml OU SCH ×3 (09:22→17:26)
[2016-05-27] MEDS: Brimonidine 0.2% Opth Sol (5ml) OU SCH ×3 (09:22→17:26)
[2016-05-27] MEDS: Nystatin 100,000 Units/gm Cream(15 gm) TOP SCH ×3 (09:23→17:26)
--- NOTE | 2016-05-27 15:44 | PCM.SURG1 ---
Surgeon's Initial Post Op Note - Surgeon's Notes Surgeon: Neto Romero MD It Network Administrator: None Type of Anesthesia: Local Pre-Operative Diagnosis: Poor venous access Operative Findings: Patent right basilic vein. Post-Operative Diagnosis: Poor venous access Operation Performed: Right basilic dual lumen picc placement, 5fr. 40 cm. Tip in SVC. Specimen/Specimens Removed: NONE Estimated Blood Loss: EBL {In ML}: 2 Blood Products Given: N/A Drains Used: No Drains Post-Op Condition: Poor Date of Surgery/Procedure: 05/27/16 Time of Surgery/Procedure: 15:40
--- NOTE | 2016-05-27 16:48 | CP.PCM.PN ---
Subjective - Date & Time of Evaluation Date of Evaluation: 05/27/16 Time of Evaluation: 01:00 - Subjective Subjective: clinically same Objective - Vital Signs/Intake and Output Vital Signs (last 24 hours): Temp Pulse Resp BP Pulse Ox 97.9 F 86 12 125/68 97 05/27/16 12:00 05/27/16 15:00 05/27/16 15:00 05/27/16 12:47 05/27/16 15:00 Intake and Output: 05/27/16 05/27/16 06:59 18:59 Intake Total 660 490 Output Total 800 Balance -140 490 - Medications Medications: Current Medications Brimonidine Tartrate (Alphagan 0.2% Opht) 0 ml OU TID [facility] Last Admin: 05/27/16 13:19 Dose: 1 drop Dorzolamide HCl (Trusopt) 0 ml OU TID [facility] Last Admin: 05/27/16 13:20 Dose: 1 drop Pantoprazole Sodium 80 mg/ (Sodium Chloride) 100 mls @ 10 mls/hr IV .Q10H [facility] Last Admin: 05/27/16 11:10 Dose: Not Given Imipenem/Cilastatin Sodium 250 (mg/ Sodium Chloride) 100 mls @ 100 mls/hr IVPB Q6H [facility] Last Admin: 05/27/16 12:29 Dose: 100 mls/hr Insulin Aspart (Novolog) 0 unit SC ACHS [facility] PRN Reason: Protocol Last Admin: 05/27/16 16:40 Dose: Not Given Latanoprost (Xalatan Opht) 0 ml OU HS [facility] Last Admin: 05/26/16 22:31 Dose: 2.5 ml Nystatin (Mycostatin Cream) 0 ea TOP TID [facility] Last Admin: 05/27/16 13:19 Dose: 1 applic Tamsulosin HCl (Flomax) 0.4 mg PO DAILY [facility] Last Admin: 05/27/16 09:22 Dose: 0.4 mg - Labs Labs: 05/27/16 05:53 05/27/16 05:53 PT 10.8 SECONDS (9.7-12.2) 05/23/16 05:59 INR 1.0 05/23/16 05:59 APTT 25 SECONDS (21-34) 05/23/16 05:59 - Constitutional Appears: Well - Head Exam Head Exam: ATRAUMATIC, NORMAL INSPECTION, NORMOCEPHALIC - Eye Exam Eye Exam: EOMI, Normal appearance, PERRL Pupil Exam: NORMAL ACCOMODATION, PERRL - ENT Exam ENT Exam: Mucous Membranes Moist, Normal Exam - Neck Exam Neck Exam: Full ROM, Normal Inspection. absent: Lymphadenopathy - Respiratory Exam Respiratory Exam: Decreased Breath Sounds - Cardiovascular Exam Cardiovascular Exam: REGULAR RHYTHM, +S1, +S2 - GI/Abdominal Exam GI & Abdominal Exam: Soft, Diminished Bowel Sounds - Rectal Exam Rectal Exam: Deferred Assessment and Plan (1) Acute renal failure Status: Acute (2) Anemia Status: Acute (3) BPH (benign prostatic hyperplasia) Status: Acute (4) Bilateral edema of lower extremity Status: Acute (5) DVT prophylaxis Status: Acute (6) Dry gangrene Status: Acute (7) Gastrointestinal hemorrhage Status: Acute (8) Hypochromic microcytic anemia Status: Acute (9) Hypovolemic shock Status: Acute (10) Memory difficulty Status: Acute (11) Paresthesia of both lower extremities Status: Acute (12) Pneumonia Status: Acute (13) CHF (congestive heart failure) Status: Chronic (14) Diabetes mellitus Status: Chronic - Assessment and Plan (Free Text) Plan: f/u with GI f/u with ID f/u with electronic science teacher continue monitor H/H protonix Imipenam/Cilastatin Novolog
[2016-05-27] MEDS: Latanoprost 2.5 ml Opht Soln OU SCH (21:40)
[2016-05-28 06:44] LABS: BASO # 0.1 K/uL (0.0-0.2); BASO % 0.3 % (0.0-2.0); EOS # 0.2 K/uL (0.0-0.7); EOS % 1.3 % (0.0-4.0); HEMATOCRIT 23.4 % (35.0-51.0); LYMPH % 5.7 % (20.0-40.0); MEAN CELL VOLUME 88.6 fL (80.0-94.0); MEAN CORPUSCULAR HEMOGLOBIN 28.3 pg (27.0-31.0); MEAN CORPUSCULAR HGB CONC 31.9 g/dL (33.0-37.0); MEAN PLATELET VOLUME 7.6 fL (7.2-11.7); MONO # 0.8 K/uL (0.0-0.8); MONO % 4.1 % (0.0-10.0); NRBC % 0.2 % (0.0-2.0); PLATELET COUNT 171 K/uL (130-400); RED CELL DISTRIBUTION WIDTH 18.9 % (11.5-14.5); WHITE BLOOD COUNT 18.4 K/uL (4.8-10.8)
[2016-05-28 06:57] LABS: POTASSIUM 3.3 mmol/L (3.6-5.2)
[2016-05-28 06:59] LABS: BILIRUBIN,TOTAL 0.5 mg/dL (0.2-1.3)
[2016-05-28 07:00] LABS: ALB/GLOB RATIO 0.7 (1.0-2.1); CALCIUM 7.2 mg/dl (8.6-10.4); PHOSPHOROUS 2.2 mg/dL (2.5-4.5); TOTAL PROTEIN 4.5 g/dL (6.3-8.3)
[2016-05-28 07:01] LABS: MAGNESIUM 1.8 mg/dL (1.6-2.3)
[2016-05-28] MEDS: (Novolog) Insulin Aspart, Recombinant 100 u/ml 10 ml vial SC SCH ×4 (07:30→21:16)
[2016-05-28 08:19] LABS: EOSINOPHIL 1 % (0-4); METAMYELOCYTE 1 % (0-0); NEUTROPHIL 78 % (50-75); TOTAL CELLS COUNTED 100
--- NOTE | 2016-05-28 09:22 | CP.PCM.PN ---
<Denae Chakraborty - Last Filed: 05/28/16 09:19> Subjective - Date & Time of Evaluation Date of Evaluation: 05/28/16 Time of Evaluation: 09:19 - Subjective Subjective: Gastroenterology Fellow/PGY4 Progress Note Patient notes improvement in left upper abdominal pain. Nurse denies melena, hematochezia, or hematemesis overnight. No bowel movement overnight. Vital signs stable. A 12-point review of systems negative except for above. Objective - Vital Signs/Intake and Output Vital Signs (last 24 hours): Temp Pulse Resp BP Pulse Ox 97.6 F 91 H 16 146/65 99 05/28/16 08:00 05/28/16 09:00 05/28/16 09:00 05/28/16 09:00 05/28/16 09:00 Intake and Output: 05/28/16 05/28/16 06:59 18:59 Intake Total 660 120 Output Total 750 140 Balance -90 -20 - Medications Medications: Current Medications Brimonidine Tartrate (Alphagan 0.2% Opht) 0 ml OU TID [facility] Last Admin: 05/27/16 17:26 Dose: 1 drop Dorzolamide HCl (Trusopt) 0 ml OU TID [facility] Last Admin: 05/27/16 17:26 Dose: 1 drop Pantoprazole Sodium 80 mg/ (Sodium Chloride) 100 mls @ 10 mls/hr IV .Q10H [facility] Last Admin: 05/27/16 21:40 Dose: 10 mls/hr Imipenem/Cilastatin Sodium 250 (mg/ Sodium Chloride) 100 mls @ 100 mls/hr IVPB Q6H [facility] Last Admin: 05/28/16 06:20 Dose: 100 mls/hr Insulin Aspart (Novolog) 0 unit SC ACHS [facility] PRN Reason: Protocol Last Admin: 05/27/16 21:41 Dose: Not Given Latanoprost (Xalatan Opht) 0 ml OU HS [facility] Last Admin: 05/27/16 21:40 Dose: 2.5 ml Nystatin (Mycostatin Cream) 0 ea TOP TID [facility] Last Admin: 05/27/16 17:26 Dose: 1 applic Tamsulosin HCl (Flomax) 0.4 mg PO DAILY [facility] Last Admin: 05/27/16 09:22 Dose: 0.4 mg - Labs Labs: 05/28/16 06:30 05/28/16 06:30 PT 11.3 SECONDS (9.7-12.2) 05/28/16 06:30 INR 1.0 05/28/16 06:30 APTT 31 SECONDS (21-34) 05/28/16 06:30 - Constitutional Appears: Non-toxic, No Acute Distress - Head Exam Head Exam: ATRAUMATIC, NORMOCEPHALIC - Eye Exam Eye Exam: EOMI, PERRL Pupil Exam: PERRL. absent: Miosis, Mydriatic - ENT Exam ENT Exam: Mucous Membranes Moist, Normal Oropharynx - Neck Exam Neck Exam: Full ROM, Normal Inspection - Respiratory Exam Respiratory Exam: Clear to Ausculation Bilateral. absent: Rales, Rhonchi, Wheezes, Stridor - Cardiovascular Exam Cardiovascular Exam: RRR, +S1, +S2. absent: Gallop, Rubs - GI/Abdominal Exam GI & Abdominal Exam: Soft, Tenderness, Normal Bowel Sounds. absent: Distended, Firm, Guarding, Rigid, Organomegaly, Rebound Additional comments: epigastric tenderness to palpation - Extremities Exam Extremities Exam: Full ROM. absent: Pedal Edema - Neurological Exam Neurological Exam: Alert, Awake - Psychiatric Exam Psychiatric exam: Normal Affect, Normal Mood - Skin Skin Exam: Dry, Intact, Normal Color, Warm Assessment and Plan - Assessment and Plan (Free Text) Assessment: 85 year old male with history of Anemia requiring transfusion 04/2015 on scheduled outpatient Iron infusions with Dr. Jackson, [place] complicated by CAD s/p 3 vessel CABG 2012 previously on Plavix prior to admission 04/2016, moderate aortic stenosis, ischemic cardiomyopathy 35-40%, CKD Stage 3, Hypertension, Hyperlipidemia presenting with weakness and melena. EGD 05/23 showing LA Grade D esophagitis, gastric ulcers, large duodenal bulb/sweep ulcer with stigmata of recent bleed- pigmented spot. EGD 05/24- duodenal ulcer with stigmata of recent bleed s/p gold probe coagulation and epinephrine 1:93707 injection. Prior EGD and colonoscopy 04/2015 showed gastric AVM, normal colon, and internal hemorrhoids. Acute on chronic normocytic anemia POD 5 EGD (05/23) with nonbleeding duodenal ulcer, Patrick Class IIc Melena, ABL anemia POD4 (05/24) EGD with duodenal ulcer and stigmata of recent bleed, Patrick Class Ib and IIc s/p epinephrine/APC Acute blood loss anemia,s/p 2 units pRBCs 05/22, 1 Unit 05/24 Acute on chronic anemia, 2/2 iron deficiency and chronic disease Multidrug resistent Proteus UTI Plan: >no overt GI blood loss overnight >hemodynamically stable >continue clear liquid diet >PPI IV BID today >advance to soft diet this afternoon if no signs of recurrent melena >would benefit from iron infusion >discussed with established Licsw, Dr. Jackson-will plan for outpatient follow up >will benefit from EGD ulcer surveillance in 4-8 weeks >will benefit from outpatient capsule endoscopy outpatient <Shantal Jones - Last Filed: 05/28/16 14:20> Objective - Vital Signs/Intake and Output Vital Signs (last 24 hours): Temp Pulse Resp BP Pulse Ox 97.0 F L 92 H 16 95/60 L 98 05/28/16 12:00 05/28/16 14:00 05/28/16 14:00 05/28/16 14:00 05/28/16 14:00 Intake and Output: 05/28/16 05/28/16 06:59 18:59 Intake Total 660 510 Output Total 750 315 Balance -90 195 - Medications Medications: Current Medications Brimonidine Tartrate (Alphagan 0.2% Opht) 0 ml OU TID [facility] Last Admin: 05/28/16 13:01 Dose: 1 drop Dorzolamide HCl (Trusopt) 0 ml OU TID [facility] Last Admin: 05/28/16 13:00 Dose: 1 drop Pantoprazole Sodium 80 mg/ (Sodium Chloride) 100 mls @ 10 mls/hr IV .Q10H [facility] Last Admin: 05/28/16 11:04 Dose: 10 mls/hr Imipenem/Cilastatin Sodium 250 (mg/ Sodium Chloride) 100 mls @ 100 mls/hr IVPB Q6H [facility] Last Admin: 05/28/16 13:00 Dose: 100 mls/hr Insulin Aspart (Novolog) 0 unit SC ACHS [facility] PRN Reason: Protocol Last Admin: 05/28/16 11:30 Dose: Not Given Latanoprost (Xalatan Opht) 0 ml OU HS [facility] Last Admin: 05/27/16 21:40 Dose: 2.5 ml Nystatin (Mycostatin Cream) 0 ea TOP TID [facility] Last Admin: 05/28/16 13:02 Dose: 1 applic Tamsulosin HCl (Flomax) 0.4 mg PO DAILY [facility] Last Admin: 05/28/16 09:51 Dose: 0.4 mg - Labs Labs: 05/28/16 06:30 05/28/16 06:30 PT 11.3 SECONDS (9.7-12.2) 05/28/16 06:30 INR 1.0 05/28/16 06:30 APTT 31 SECONDS (21-34) 05/28/16 06:30 Attending/Attestation - Attestation I have personally seen and examined this patient.: Yes I have fully participated in the care of the patient.: Yes I have reviewed all pertinent clinical information, including history, physical exam and plan: Yes Notes (Text): Patient seen and examined. Agree with note as documented above with the following additions/exceptions. This is an 85 year old male with h/o CAD, ischemic cardiomyopathy 35-40%, CKD Stage 3, Hypertension, Hyperlipidemia who is admitted with GI bleeding likely due to peptic ulcer disease/large duodenal ulcer s/p epi/bicap cautery. He has had no further bleeding episodes. H/H stable. He is tolerating liquid diet. Would continue to monitor for rebleeding , monitor H/H. Continue IV PPI. Advance diet slowly as tolerated. Will continue to follow and make recommendations depending on patient's clinical course. 05/28/16 14:18
[2016-05-28] MEDS: Brimonidine 0.2% Opth Sol (5ml) OU SCH ×3 (09:52→17:37)
[2016-05-28] MEDS: Dorzolamide 2% Opht Sol 10ml OU SCH ×3 (09:52→17:37)
[2016-05-28] MEDS: Nystatin 100,000 Units/gm Cream(15 gm) TOP SCH ×3 (09:53→17:38)
[2016-05-28] MEDS: Pantoprazole 80 MG in Sodium Chloride 0.9% 100 ML IV SCH ×2 (11:04→23:00)
[2016-05-28] MEDS ORDERED: Potassium Chloride 20 mEq/15 ml LIQ UD PO ONE (16:00)
[2016-05-28] MEDS: Latanoprost 2.5 ml Opht Soln OU SCH (21:22)
--- NOTE | 2016-05-28 22:38 | CP.PCM.PN ---
Subjective - Date & Time of Evaluation Date of Evaluation: 05/28/16 Time of Evaluation: 15:00 - Subjective Subjective: clinically same Objective - Vital Signs/Intake and Output Vital Signs (last 24 hours): Temp Pulse Resp BP Pulse Ox 98.3 F 88 16 104/62 99 05/28/16 21:05 05/28/16 21:05 05/28/16 21:05 05/28/16 21:05 05/28/16 18:00 Intake and Output: 05/28/16 05/29/16 18:59 06:59 Intake Total 1130 0 Output Total 450 Balance 680 0 - Medications Medications: Current Medications Brimonidine Tartrate (Alphagan 0.2% Opht) 0 ml OU TID [facility] Last Admin: 05/28/16 17:37 Dose: 1 drop Dorzolamide HCl (Trusopt) 0 ml OU TID [facility] Last Admin: 05/28/16 17:37 Dose: 1 drop Pantoprazole Sodium 80 mg/ (Sodium Chloride) 100 mls @ 10 mls/hr IV .Q10H [facility] Last Admin: 05/28/16 11:04 Dose: 10 mls/hr Imipenem/Cilastatin Sodium 250 (mg/ Sodium Chloride) 100 mls @ 100 mls/hr IVPB Q6H [facility] Last Admin: 05/28/16 18:16 Dose: 100 mls/hr Insulin Aspart (Novolog) 0 unit SC ACHS [facility] PRN Reason: Protocol Last Admin: 05/28/16 21:16 Dose: Not Given Latanoprost (Xalatan Opht) 0 ml OU HS [facility] Last Admin: 05/28/16 21:22 Dose: 2.5 ml Nystatin (Mycostatin Cream) 0 ea TOP TID [facility] Last Admin: 05/28/16 17:38 Dose: 1 applic Tamsulosin HCl (Flomax) 0.4 mg PO DAILY [facility] Last Admin: 05/28/16 09:51 Dose: 0.4 mg - Labs Labs: 05/28/16 06:30 05/28/16 06:30 PT 11.3 SECONDS (9.7-12.2) 05/28/16 06:30 INR 1.0 05/28/16 06:30 APTT 31 SECONDS (21-34) 05/28/16 06:30 Assessment and Plan (1) Acute renal failure Status: Acute (2) Anemia Status: Acute (3) BPH (benign prostatic hyperplasia) Status: Acute (4) Bilateral edema of lower extremity Status: Acute (5) DVT prophylaxis Status: Acute (6) Dry gangrene Status: Acute (7) Gastrointestinal hemorrhage Status: Acute (8) Hypochromic microcytic anemia Status: Acute (9) Hypovolemic shock Status: Acute (10) Memory difficulty Status: Acute (11) Paresthesia of both lower extremities Status: Acute (12) Pneumonia Status: Acute (13) CHF (congestive heart failure) Status: Chronic (14) Diabetes mellitus Status: Chronic - Assessment and Plan (Free Text) Plan: f/u with GI f/u with ID f/u with documentation engineer continue monitor H/H protonix Imipenam/Cilastatin [facility]
[2016-05-29] MEDS: Pantoprazole 80 MG in Sodium Chloride 0.9% 100 ML IV SCH ×4 (02:45→22:29)
[2016-05-29] MEDS: (Novolog) Insulin Aspart, Recombinant 100 u/ml 10 ml vial SC SCH ×4 (07:30→22:24)
--- NOTE | 2016-05-29 08:08 | CP.PCM.PN ---
<Denae Chakraborty - Last Filed: 05/29/16 08:05> Subjective - Date & Time of Evaluation Date of Evaluation: 05/29/16 Time of Evaluation: 08:05 - Subjective Subjective: Gastroenterology Fellow/PGY4 Progress Note Patient continues to have left upper abdominal pain. Nurse notes one episode of moderate quantity of dark red blood at 2000. Vitals stable overnight. No bowel movement overnight. A 12-point review of systems negative except for above. Objective - Vital Signs/Intake and Output Vital Signs (last 24 hours): Temp Pulse Resp BP Pulse Ox 98.4 F 89 14 130/73 98 05/29/16 00:00 05/29/16 00:00 05/29/16 00:00 05/29/16 00:00 05/29/16 00:00 Intake and Output: 05/29/16 05/29/16 06:59 18:59 Intake Total 1266 Output Total 360 Balance 906 - Medications Medications: Current Medications Brimonidine Tartrate (Alphagan 0.2% Opht) 0 ml OU TID [facility] Last Admin: 05/28/16 17:37 Dose: 1 drop Dorzolamide HCl (Trusopt) 0 ml OU TID [facility] Last Admin: 05/28/16 17:37 Dose: 1 drop Pantoprazole Sodium 80 mg/ (Sodium Chloride) 100 mls @ 10 mls/hr IV .Q10H [facility] Last Admin: 05/29/16 02:45 Dose: Not Given Imipenem/Cilastatin Sodium 250 (mg/ Sodium Chloride) 100 mls @ 100 mls/hr IVPB Q6H [facility] Last Admin: 05/29/16 06:50 Dose: 100 mls/hr Insulin Aspart (Novolog) 0 unit SC ACHS [facility] PRN Reason: Protocol Last Admin: 05/28/16 21:16 Dose: Not Given Latanoprost (Xalatan Opht) 0 ml OU HS [facility] Last Admin: 05/28/16 21:22 Dose: 2.5 ml Nystatin (Mycostatin Cream) 0 ea TOP TID [facility] Last Admin: 05/28/16 17:38 Dose: 1 applic Tamsulosin HCl (Flomax) 0.4 mg PO DAILY [facility] Last Admin: 05/28/16 09:51 Dose: 0.4 mg - Labs Labs: 05/28/16 06:30 05/28/16 06:30 PT 11.3 SECONDS (9.7-12.2) 05/28/16 06:30 INR 1.0 05/28/16 06:30 APTT 31 SECONDS (21-34) 05/28/16 06:30 - Constitutional Appears: Non-toxic, No Acute Distress - Head Exam Head Exam: ATRAUMATIC, NORMOCEPHALIC - Eye Exam Eye Exam: EOMI, PERRL Pupil Exam: PERRL. absent: Miosis, Mydriatic - ENT Exam ENT Exam: Mucous Membranes Moist, Normal Oropharynx - Neck Exam Neck Exam: Full ROM, Normal Inspection - Respiratory Exam Respiratory Exam: Clear to Ausculation Bilateral. absent: Rhonchi, Wheezes, Stridor - Cardiovascular Exam Cardiovascular Exam: RRR, +S1, +S2. absent: Gallop, Rubs - GI/Abdominal Exam GI & Abdominal Exam: Soft, Tenderness, Normal Bowel Sounds. absent: Distended, Firm, Guarding, Rigid, Organomegaly Additional comments: LUQ tenderness to palpation - Extremities Exam Extremities Exam: Normal Inspection. absent: Pedal Edema - Neurological Exam Neurological Exam: Alert, Awake - Psychiatric Exam Psychiatric exam: Normal Affect, Normal Mood - Skin Skin Exam: Dry, Normal Color, Warm Assessment and Plan - Assessment and Plan (Free Text) Assessment: 85 year old male with history of Anemia requiring transfusion 04/2015 on scheduled outpatient Iron infusions with Dr. Jackson, [place] complicated by CAD s/p 3 vessel CABG 2012 previously on Plavix prior to admission 04/2016, moderate aortic stenosis, ischemic cardiomyopathy 35-40%, CKD Stage 3, Hypertension, Hyperlipidemia presenting with weakness and melena. EGD 05/23 showing LA Grade D esophagitis, gastric ulcers, large duodenal bulb/sweep ulcer with stigmata of recent bleed- pigmented spot. EGD 05/24- duodenal ulcer with stigmata of recent bleed s/p gold probe coagulation and epinephrine [id number] injection. Prior EGD and colonoscopy 04/2015 showed gastric AVM, normal colon, and internal hemorrhoids. Acute on chronic normocytic anemia POD6 EGD (05/23) with nonbleeding duodenal ulcer, Patrick Class IIc Melena, ABL anemia POD5 (05/24) EGD with duodenal ulcer and stigmata of recent bleed, Patrick Class Ib and IIc s/p epinephrine/APC Acute blood loss anemia,s/p 2 units pRBCs 05/22, 1 Unit 05/24, 1U 05/28 Acute on chronic anemia, 2/2 iron deficiency and chronic disease, rule out GI Bleed Multidrug resistent Proteus UTI Plan: >characterization of hematochezia overnight >vitals stable >s/p 1U overnight >monitor H/H >continue PPI >continue clear liquid diet >colonoscopy 04/2015 without acute pathology >likely will not tolerate bowel prep for full colonoscopy >will discuss with team consideration for flexible sigmoidoscopy to assess lower GI blood loss <Jesse Davenport - Last Filed: 05/29/16 10:48> Objective - Vital Signs/Intake and Output Vital Signs (last 24 hours): Temp Pulse Resp BP Pulse Ox 97.4 F L 79 16 128/65 99 05/29/16 08:00 05/29/16 08:00 05/29/16 08:00 05/29/16 08:00 05/29/16 08:00 Intake and Output: 05/29/16 05/29/16 06:59 18:59 Intake Total 1266 Output Total 360 Balance 906 - Medications Medications: Current Medications Brimonidine Tartrate (Alphagan 0.2% Opht) 0 ml OU TID [facility] Last Admin: 05/29/16 09:23 Dose: 1 drop Dorzolamide HCl (Trusopt) 0 ml OU TID [facility] Last Admin: 05/29/16 09:23 Dose: 1 drop Pantoprazole Sodium 80 mg/ (Sodium Chloride) 100 mls @ 10 mls/hr IV .Q10H [facility] Last Admin: 05/29/16 09:30 Dose: 10 mls/hr Imipenem/Cilastatin Sodium 250 (mg/ Sodium Chloride) 100 mls @ 100 mls/hr IVPB Q6H [facility] Last Admin: 05/29/16 06:50 Dose: 100 mls/hr Insulin Aspart (Novolog) 0 unit SC ACHS [facility] PRN Reason: Protocol Last Admin: 05/28/16 21:16 Dose: Not Given Latanoprost (Xalatan Opht) 0 ml OU HS [facility] Last Admin: 05/28/16 21:22 Dose: 2.5 ml Nystatin (Mycostatin Cream) 0 ea TOP TID [facility] Last Admin: 05/29/16 09:24 Dose: 1 applic Tamsulosin HCl (Flomax) 0.4 mg PO DAILY [facility] Last Admin: 05/29/16 09:21 Dose: 0.4 mg - Labs Labs: 05/29/16 08:57 05/29/16 08:57 PT 11.3 SECONDS (9.7-12.2) 05/28/16 06:30 INR 1.0 05/28/16 06:30 APTT 31 SECONDS (21-34) 05/28/16 06:30 Attending/Attestation - Attestation I have personally seen and examined this patient.: Yes I have fully participated in the care of the patient.: Yes I have reviewed all pertinent clinical information, including history, physical exam and plan: Yes Notes (Text): 05/29/16 10:44 I have seen and examined patient with GI fellow. He remains in ICU critical care, appears quite weak. He had one episode of maroon colored stool yesterday at 8 pm, none thereafter. He complains of mild LUQ abdominal pain but denies nausea, vomiting, diarrhea, fever/chills. Tolerating PO liquids without difficulty. Review of vitals from today are normal. CAD/CABG Iron deficiency anemia Upper GI bleeding, duodenal ulcer, erosive esophagitis CKD UTI - Continue with antibiotic therapy, leukocytosis worsening - follow up ID recommendations - s/p PRBC transfusion yesterday, monitor H/H - Continue with PPI therapy - Liquid diet as tolerated - Given recurrent maroon colored bowel movements, would consider flexible sigmoidoscopy evaluation tomorrow +/- repeat EGD evaluation pending patient clinical progress, will continue to monitor
[2016-05-29 09:06] LABS: BASO # 0.1 K/uL (0.0-0.2); BASO % 0.3 % (0.0-2.0); EOS # 0.1 K/uL (0.0-0.7); EOS % 0.6 % (0.0-4.0); HEMATOCRIT 26.6 % (35.0-51.0); MEAN CELL VOLUME 86.8 fL (80.0-94.0); MEAN CORPUSCULAR HEMOGLOBIN 27.5 pg (27.0-31.0); MEAN CORPUSCULAR HGB CONC 31.7 g/dL (33.0-37.0); MEAN PLATELET VOLUME 7.7 fL (7.2-11.7); MONO # 0.7 K/uL (0.0-0.8); MONO % 3.4 % (0.0-10.0); PLATELET COUNT 147 K/uL (130-400); RED CELL DISTRIBUTION WIDTH 19.3 % (11.5-14.5); WHITE BLOOD COUNT 19.8 K/uL (4.8-10.8)
[2016-05-29 09:20] LABS: CHLORIDE 124 mmol/L (98-107); SODIUM 152 mmol/L (132-148)
[2016-05-29 09:21] LABS: POTASSIUM 3.6 mmol/L (3.6-5.2)
[2016-05-29 09:23] LABS: ALB/GLOB RATIO 0.7 (1.0-2.1); ALKALINE PHOSPHATASE 59 U/L (38-126); AST/SGOT 17 U/L (17-59); BILIRUBIN,TOTAL 0.2 mg/dL (0.2-1.3); BLOOD UREA NITROGEN 13 mg/dL (9-20); CARBON DIOXIDE 17 mmol/L (22-30); GFR AFRICAN-AMERICAN > 60; GLUCOSE,RANDOM 119 mg/dL (75-110); PHOSPHOROUS 1.9 mg/dL (2.5-4.5); TOTAL PROTEIN 4.5 g/dL (6.3-8.3)
[2016-05-29] MEDS: Dorzolamide 2% Opht Sol 10ml OU SCH ×3 (09:23→18:11)
[2016-05-29] MEDS: Brimonidine 0.2% Opth Sol (5ml) OU SCH ×3 (09:23→18:14)
[2016-05-29 09:24] LABS: ALT/SGPT 13 U/L (21-72); CALCIUM 7.5 mg/dl (8.6-10.4); MAGNESIUM 1.8 mg/dL (1.6-2.3)
[2016-05-29] MEDS: Nystatin 100,000 Units/gm Cream(15 gm) TOP SCH ×3 (09:24→18:12)
[2016-05-29 09:56] LABS: EOSINOPHIL 1 % (0-4); TOTAL CELLS COUNTED 100
[2016-05-29 09:57] LABS: NEUTROPHIL 86 % (50-75)
--- NOTE | 2016-05-29 13:15 | CP.PCM.PN ---
Subjective - Date & Time of Evaluation Date of Evaluation: 05/29/16 Time of Evaluation: 02:00 - Subjective Subjective: clinically same Objective - Vital Signs/Intake and Output Vital Signs (last 24 hours): Temp Pulse Resp BP Pulse Ox 97.5 F L 75 16 125/56 L 98 05/29/16 12:00 05/29/16 12:00 05/29/16 12:00 05/29/16 12:00 05/29/16 12:00 Intake and Output: 05/29/16 05/29/16 06:59 18:59 Intake Total 1266 450 Output Total 360 230 Balance 906 220 - Medications Medications: Current Medications Brimonidine Tartrate (Alphagan 0.2% Opht) 0 ml OU TID [facility] Last Admin: 05/29/16 09:23 Dose: 1 drop Dorzolamide HCl (Trusopt) 0 ml OU TID [facility] Last Admin: 05/29/16 09:23 Dose: 1 drop Pantoprazole Sodium 80 mg/ (Sodium Chloride) 100 mls @ 10 mls/hr IV .Q10H [facility] Last Admin: 05/29/16 09:30 Dose: 10 mls/hr Imipenem/Cilastatin Sodium 250 (mg/ Sodium Chloride) 100 mls @ 100 mls/hr IVPB Q6H [facility] Last Admin: 05/29/16 06:50 Dose: 100 mls/hr Insulin Aspart (Novolog) 0 unit SC ACHS [facility] PRN Reason: Protocol Last Admin: 05/29/16 11:48 Dose: 2 unit Latanoprost (Xalatan Opht) 0 ml OU HS [facility] Last Admin: 05/28/16 21:22 Dose: 2.5 ml Nystatin (Mycostatin Cream) 0 ea TOP TID [facility] Last Admin: 05/29/16 09:24 Dose: 1 applic Tamsulosin HCl (Flomax) 0.4 mg PO DAILY [facility] Last Admin: 05/29/16 09:21 Dose: 0.4 mg - Labs Labs: 05/29/16 08:57 05/29/16 08:57 PT 11.3 SECONDS (9.7-12.2) 05/28/16 06:30 INR 1.0 05/28/16 06:30 APTT 31 SECONDS (21-34) 05/28/16 06:30 - Constitutional Appears: Well - Head Exam Head Exam: ATRAUMATIC, NORMAL INSPECTION, NORMOCEPHALIC - Eye Exam Eye Exam: EOMI, Normal appearance, PERRL Pupil Exam: NORMAL ACCOMODATION, PERRL - ENT Exam ENT Exam: Mucous Membranes Moist, Normal Exam - Neck Exam Neck Exam: Full ROM, Normal Inspection. absent: Lymphadenopathy - Respiratory Exam Respiratory Exam: Decreased Breath Sounds - Cardiovascular Exam Cardiovascular Exam: REGULAR RHYTHM, +S1, +S2 - GI/Abdominal Exam GI & Abdominal Exam: Soft, Diminished Bowel Sounds - Rectal Exam Rectal Exam: Deferred Assessment and Plan (1) Acute renal failure Status: Acute (2) Anemia Status: Acute (3) BPH (benign prostatic hyperplasia) Status: Acute (4) Bilateral edema of lower extremity Status: Acute (5) DVT prophylaxis Status: Acute (6) Dry gangrene Status: Acute (7) Gastrointestinal hemorrhage Status: Acute (8) Hypochromic microcytic anemia Status: Acute (9) Hypovolemic shock Status: Acute (10) Memory difficulty Status: Acute (11) Paresthesia of both lower extremities Status: Acute (12) Pneumonia Status: Acute (13) CHF (congestive heart failure) Status: Chronic (14) Diabetes mellitus Status: Chronic - Assessment and Plan (Free Text) Plan: f/u with GI f/u with ID f/u with care team assistant continue monitor H/H protonix Imipenam/Cilastatin Novolog
[2016-05-29] MEDS: Latanoprost 2.5 ml Opht Soln OU SCH (22:29)
[2016-05-30 06:41] LABS: BASO # 0.1 K/uL (0.0-0.2); BASO % 0.4 % (0.0-2.0); EOS # 0.1 K/uL (0.0-0.7); EOS % 0.6 % (0.0-4.0); LYMPH # 0.9 K/uL (1.0-4.3); LYMPH % 6.2 % (20.0-40.0); MEAN CELL VOLUME 87.4 fL (80.0-94.0); MEAN CORPUSCULAR HEMOGLOBIN 27.8 pg (27.0-31.0); MEAN CORPUSCULAR HGB CONC 31.8 g/dL (33.0-37.0); MEAN PLATELET VOLUME 8.1 fL (7.2-11.7); MONO # 0.5 K/uL (0.0-0.8); MONO % 3.6 % (0.0-10.0); PLATELET COUNT 137 K/uL (130-400); RED CELL DISTRIBUTION WIDTH 20.2 % (11.5-14.5); WHITE BLOOD COUNT 14.9 K/uL (4.8-10.8)
[2016-05-30 06:46] LABS: CHLORIDE 125 mmol/L (98-107); POTASSIUM 3.4 mmol/L (3.6-5.2); SODIUM 153 mmol/L (132-148)
[2016-05-30 06:48] LABS: AST/SGOT 14 U/L (17-59); BILIRUBIN,TOTAL 0.3 mg/dL (0.2-1.3); CARBON DIOXIDE 18 mmol/L (22-30); GFR AFRICAN-AMERICAN > 60
[2016-05-30 06:49] LABS: ALB/GLOB RATIO 0.6 (1.0-2.1); ALKALINE PHOSPHATASE 57 U/L (38-126); ALT/SGPT 27 U/L (21-72); BLOOD UREA NITROGEN 12 mg/dL (9-20); CALCIUM 7.5 mg/dl (8.6-10.4); GLUCOSE,RANDOM 101 mg/dL (75-110); PHOSPHOROUS 1.8 mg/dL (2.5-4.5); TOTAL PROTEIN 4.6 g/dL (6.3-8.3)
[2016-05-30 06:50] LABS: MAGNESIUM 1.8 mg/dL (1.6-2.3)
[2016-05-30] MEDS: (Novolog) Insulin Aspart, Recombinant 100 u/ml 10 ml vial SC SCH ×4 (07:38→22:00)
[2016-05-30] MEDS: Pantoprazole 80 MG in Sodium Chloride 0.9% 100 ML IV SCH (08:41)
[2016-05-30] MEDS ORDERED: Etomidate 20 mg/10ml Inj IV ONE (08:50)
[2016-05-30] MEDS: Dorzolamide 2% Opht Sol 10ml OU SCH ×3 (09:55→17:41)
[2016-05-30] MEDS: Brimonidine 0.2% Opth Sol (5ml) OU SCH ×3 (09:56→17:41)
[2016-05-30] MEDS: Nystatin 100,000 Units/gm Cream(15 gm) TOP SCH ×3 (09:56→17:42)
[2016-05-30 10:00] LABS: METAMYELOCYTE 1 % (0-0); NEUTROPHIL 85 % (50-75); TOTAL CELLS COUNTED 100
--- NOTE | 2016-05-30 10:55 | CP.PCM.PN ---
Subjective - Date & Time of Evaluation Date of Evaluation: 05/30/16 Time of Evaluation: 01:40 - Subjective Subjective: clinically same Objective - Vital Signs/Intake and Output Vital Signs (last 24 hours): Temp Pulse Resp BP Pulse Ox 98.0 F 93 H 14 149/85 98 05/30/16 08:43 05/30/16 08:43 05/30/16 08:43 05/30/16 08:43 05/30/16 08:43 Intake and Output: 05/30/16 05/30/16 06:59 18:59 Intake Total 670 Output Total 550 Balance 120 - Medications Medications: Current Medications Brimonidine Tartrate (Alphagan 0.2% Opht) 0 ml OU TID [facility] Last Admin: 05/30/16 09:56 Dose: 1 drop Dorzolamide HCl (Trusopt) 0 ml OU TID [facility] Last Admin: 05/30/16 09:55 Dose: 1 drop Imipenem/Cilastatin Sodium 250 (mg/ Sodium Chloride) 100 mls @ 100 mls/hr IVPB Q6H [facility] Last Admin: 05/30/16 06:15 Dose: 100 mls/hr Insulin Aspart (Novolog) 0 unit SC ACHS [facility] PRN Reason: Protocol Last Admin: 05/30/16 07:38 Dose: Not Given Latanoprost (Xalatan Opht) 0 ml OU HS [facility] Last Admin: 05/29/16 22:29 Dose: 2.5 ml Nystatin (Mycostatin Cream) 0 ea TOP TID [facility] Last Admin: 05/30/16 09:56 Dose: 1 applic Pantoprazole Sodium (Protonix Ec Tab) 40 mg PO BID [facility] Tamsulosin HCl (Flomax) 0.4 mg PO DAILY [facility] Last Admin: 05/30/16 09:56 Dose: 0.4 mg - Labs Labs: 05/30/16 06:00 05/30/16 06:00 PT 11.3 SECONDS (9.7-12.2) 05/28/16 06:30 INR 1.0 05/28/16 06:30 APTT 31 SECONDS (21-34) 05/28/16 06:30 - Constitutional Appears: Well - Head Exam Head Exam: ATRAUMATIC, NORMAL INSPECTION, NORMOCEPHALIC - Eye Exam Eye Exam: EOMI, Normal appearance, PERRL Pupil Exam: NORMAL ACCOMODATION, PERRL - ENT Exam ENT Exam: Mucous Membranes Moist, Normal Exam - Neck Exam Neck Exam: Full ROM, Normal Inspection. absent: Lymphadenopathy - Respiratory Exam Respiratory Exam: Decreased Breath Sounds - Cardiovascular Exam Cardiovascular Exam: REGULAR RHYTHM, +S1, +S2 - GI/Abdominal Exam GI & Abdominal Exam: Soft, Diminished Bowel Sounds - Rectal Exam Rectal Exam: Deferred Assessment and Plan (1) Acute renal failure Status: Acute (2) Anemia Status: Acute (3) BPH (benign prostatic hyperplasia) Status: Acute (4) Bilateral edema of lower extremity Status: Acute (5) DVT prophylaxis Status: Acute (6) Dry gangrene Status: Acute (7) Gastrointestinal hemorrhage Status: Acute (8) Hypochromic microcytic anemia Status: Acute (9) Hypovolemic shock Status: Acute (10) Memory difficulty Status: Acute (11) Paresthesia of both lower extremities Status: Acute (12) Pneumonia Status: Acute (13) CHF (congestive heart failure) Status: Chronic (14) Diabetes mellitus Status: Chronic - Assessment and Plan (Free Text) Plan: f/u with GI f/u with ID f/u with 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
[2016-05-30] MEDS: Pantoprazole 40 mg EC Tab PO SCH (17:40)
[2016-05-30] MEDS ORDERED: Potassium Chloride 20 mEq ER Tab PO STA (17:59)
--- NOTE | 2016-05-30 21:58 | CP.PCM.PN ---
Subjective - Date & Time of Evaluation Date of Evaluation: 05/30/16 Time of Evaluation: 13:30 - Subjective Subjective: Events reviewed Objective - Vital Signs/Intake and Output Vital Signs (last 24 hours): Temp Pulse Resp BP Pulse Ox 97.6 F 76 18 125/71 100 05/30/16 16:00 05/30/16 16:00 05/30/16 16:00 05/30/16 16:00 05/30/16 12:00 Intake and Output: 05/30/16 05/31/16 18:59 06:59 Intake Total 940 Output Total 1050 Balance -110 - Medications Medications: Current Medications Brimonidine Tartrate (Alphagan 0.2% Opht) 0 ml OU TID [facility] Last Admin: 05/30/16 17:41 Dose: 1 drop Dorzolamide HCl (Trusopt) 0 ml OU TID [facility] Last Admin: 05/30/16 17:41 Dose: 1 drop Insulin Aspart (Novolog) 0 unit SC ACHS [facility] PRN Reason: Protocol Last Admin: 05/30/16 16:40 Dose: 2 unit Latanoprost (Xalatan Opht) 0 ml OU HS [facility] Last Admin: 05/29/16 22:29 Dose: 2.5 ml Nystatin (Mycostatin Cream) 0 ea TOP TID [facility] Last Admin: 05/30/16 17:42 Dose: 1 applic Pantoprazole Sodium (Protonix Ec Tab) 40 mg PO BID [facility] Last Admin: 05/30/16 17:40 Dose: 40 mg Tamsulosin HCl (Flomax) 0.4 mg PO DAILY [facility] Last Admin: 05/30/16 09:56 Dose: 0.4 mg - Labs Labs: 05/30/16 06:00 05/30/16 06:00 PT 11.3 SECONDS (9.7-12.2) 05/28/16 06:30 INR 1.0 05/28/16 06:30 APTT 31 SECONDS (21-34) 05/28/16 06:30 - Constitutional Appears: Cachectic, Chronically Ill - Respiratory Exam Respiratory Exam: Rhonchi, NORMAL BREATHING PATTERN - Cardiovascular Exam Cardiovascular Exam: Irregular Rhythm, +S1, +S2, +S4, Murmur. absent: JVD - GI/Abdominal Exam GI & Abdominal Exam: Normal Bowel Sounds, Organomegaly Assessment and Plan - Assessment and Plan (Free Text) Assessment: 85 y/o with Chronic compensated Mod LV systolic dysfunction, mild MR, Mod , distal septal and anterior akinesia due to chronic CAD s/p CABG in 2012. * Presented with URI sx's, SOB and PNA 04/2016: slowly improving with pulmonary RX and ABX. and sent to [facility] * Now admitted for failure to thrive and GI bleed, UTI from [facility]: S/P PRBcs and EGD and on ABX * EKG: RBBB, LAFB, NSR, no acute changes Refractory acute blood loss anemia suspicious for peptic ulcer disease; Continue PRBC transfusion support CADIAC: * Hx of known mild-mod LV dysfunction EF 35-40% due to ischemic cardiomyopathy * Euvolemic at present * No active cardiac complaints * Lower extrem edema is improved: * CKD stage 3A chronic 1. Suggest optimize medical therapy for CAD and CHF; once anemia resolves. ECHO done 04/2016 and reviewed by me: LV function is mild-MOD around 40% with mid to distal septum akinesia c/w with known hx of CAD Aortic valve opens but with reduced excursion and a mean gradient of 22mmHg, max jet velocity of 3m/s and a dimensionless index of .31 c/w moderate aortic stenosis: This should be closely followed as outpatient. His volume status is improved with echo showing grade 1 diastolic dysfunction with normal LAP. RV function is low-normal and PASP is upper normal at 32mmHg. Mild MR, Mild AI and Mild TR noted. Cont Rx and Recc per GI DVT prophylaxis
[2016-05-30] MEDS: Latanoprost 2.5 ml Opht Soln OU SCH (22:00)
[2016-05-31] MEDS: (Novolog) Insulin Aspart, Recombinant 100 u/ml 10 ml vial SC SCH ×4 (08:01→22:38)
[2016-05-31] MEDS ORDERED: Potassium Chloride 20 mEq ER Tab PO ONE ×2 (08:39→11:00)
--- NOTE | 2016-05-31 08:47 | CP.PCM.PN ---
Subjective - Date & Time of Evaluation Date of Evaluation: 05/31/16 Time of Evaluation: 08:45 - Subjective Subjective: on respirator with 70% fio2 xray pending lasix drip stopped and pt now on ivf transfer requested by family unable to obtain ROS Objective - Vital Signs/Intake and Output Vital Signs (last 24 hours): Temp Pulse Resp BP Pulse Ox 99.3 F 86 16 131/66 100 05/31/16 04:00 05/31/16 04:00 05/31/16 04:00 05/31/16 04:00 05/30/16 12:00 Intake and Output: 05/31/16 05/31/16 06:59 18:59 Intake Total 240 Output Total 150 Balance 90 - Medications Medications: Current Medications Brimonidine Tartrate (Alphagan 0.2% Opht) 0 ml OU TID [facility] Last Admin: 05/30/16 17:41 Dose: 1 drop Dorzolamide HCl (Trusopt) 0 ml OU TID [facility] Last Admin: 05/30/16 17:41 Dose: 1 drop Insulin Aspart (Novolog) 0 unit SC ACHS [facility] PRN Reason: Protocol Last Admin: 05/31/16 08:01 Dose: Not Given Latanoprost (Xalatan Opht) 0 ml OU HS [facility] Last Admin: 05/30/16 22:00 Dose: 2.5 ml Nystatin (Mycostatin Cream) 0 ea TOP TID [facility] Last Admin: 05/30/16 17:42 Dose: 1 applic Pantoprazole Sodium (Protonix Ec Tab) 40 mg PO BID [facility] Last Admin: 05/30/16 17:40 Dose: 40 mg Tamsulosin HCl (Flomax) 0.4 mg PO DAILY [facility] Last Admin: 05/30/16 09:56 Dose: 0.4 mg - Labs Labs: 05/30/16 06:00 05/30/16 06:00 PT 11.3 SECONDS (9.7-12.2) 05/28/16 06:30 INR 1.0 05/28/16 06:30 APTT 31 SECONDS (21-34) 05/28/16 06:30 - Constitutional Appears: Chronically Ill - Head Exam Head Exam: ATRAUMATIC - ENT Exam Additional comments: intubated - Neck Exam Neck Exam: Full ROM. absent: Lymphadenopathy - Respiratory Exam Respiratory Exam: Wheezes. absent: Accessory Muscle Use, Respiratory Distress - Cardiovascular Exam Cardiovascular Exam: Irregular Rhythm - GI/Abdominal Exam GI & Abdominal Exam: Soft. absent: Tenderness - Extremities Exam Extremities Exam: absent: Pedal Edema - Neurological Exam Neurological Exam: absent: Alert, Oriented x3 Additional comments: sedated Assessment and Plan - Assessment and Plan (Free Text) Assessment: respiratory failure r/o fluid overload f/u xray today regarding need for further diuretics K repleted
[2016-05-31 09:01] LABS: BASO # 0.1 K/uL (0.0-0.2); BASO % 0.5 % (0.0-2.0); EOS # 0.2 K/uL (0.0-0.7); EOS % 1.5 % (0.0-4.0); HEMATOCRIT 26.9 % (35.0-51.0); LYMPH # 1.3 K/uL (1.0-4.3); LYMPH % 10.1 % (20.0-40.0); MEAN CELL VOLUME 87.7 fL (80.0-94.0); MEAN CORPUSCULAR HEMOGLOBIN 26.9 pg (27.0-31.0); MEAN CORPUSCULAR HGB CONC 30.7 g/dL (33.0-37.0); MEAN PLATELET VOLUME 8.5 fL (7.2-11.7); MONO # 0.5 K/uL (0.0-0.8); MONO % 3.7 % (0.0-10.0); NRBC % 0.1 % (0.0-2.0); WHITE BLOOD COUNT 12.8 K/uL (4.8-10.8)
[2016-05-31 09:24] LABS: CHLORIDE 120 mmol/L (98-107); SODIUM 150 mmol/L (132-148)
[2016-05-31 09:26] LABS: ALB/GLOB RATIO 0.7 (1.0-2.1); ALKALINE PHOSPHATASE 58 U/L (38-126); AST/SGOT 15 U/L (17-59); BILIRUBIN,TOTAL 0.2 mg/dL (0.2-1.3); CARBON DIOXIDE 18 mmol/L (22-30); GFR AFRICAN-AMERICAN > 60; TOTAL PROTEIN 4.7 g/dL (6.3-8.3)
[2016-05-31 09:27] LABS: ALT/SGPT 17 U/L (21-72); BLOOD UREA NITROGEN 12 mg/dL (9-20); CALCIUM 7.5 mg/dl (8.6-10.4); GLUCOSE,RANDOM 102 mg/dL (75-110); MAGNESIUM 1.7 mg/dL (1.6-2.3); PHOSPHOROUS 1.6 mg/dL (2.5-4.5)
[2016-05-31] MEDS: Pantoprazole 40 mg EC Tab PO SCH ×2 (10:48→17:03)
[2016-05-31] MEDS: Nystatin 100,000 Units/gm Cream(15 gm) TOP SCH ×3 (10:48→17:50)
[2016-05-31] MEDS: Dorzolamide 2% Opht Sol 10ml OU SCH ×3 (10:49→17:51)
[2016-05-31] MEDS: Brimonidine 0.2% Opth Sol (5ml) OU SCH ×3 (10:49→17:51)
--- NOTE | 2016-05-31 15:05 | CP.PCM.PN ---
Subjective - Date & Time of Evaluation Date of Evaluation: 05/31/16 Time of Evaluation: 12:40 - Subjective Subjective: clinically same Objective - Vital Signs/Intake and Output Vital Signs (last 24 hours): Temp Pulse Resp BP Pulse Ox 98.5 F 90 17 107/51 L 100 05/31/16 12:00 05/31/16 12:00 05/31/16 12:00 05/31/16 12:00 05/31/16 12:00 Intake and Output: 05/31/16 05/31/16 06:59 18:59 Intake Total 240 Output Total 150 Balance 90 - Medications Medications: Current Medications Brimonidine Tartrate (Alphagan 0.2% Opht) 0 ml OU TID [facility] Last Admin: 05/31/16 10:49 Dose: 1 drop Dorzolamide HCl (Trusopt) 0 ml OU TID [facility] Last Admin: 05/31/16 10:49 Dose: 1 drop Insulin Aspart (Novolog) 0 unit SC ACHS [facility] PRN Reason: Protocol Last Admin: 05/31/16 12:20 Dose: 2 unit Latanoprost (Xalatan Opht) 0 ml OU HS [facility] Last Admin: 05/30/16 22:00 Dose: 2.5 ml Nystatin (Mycostatin Cream) 0 ea TOP TID [facility] Last Admin: 05/31/16 10:48 Dose: 1 applic Pantoprazole Sodium (Protonix Ec Tab) 40 mg PO BID [facility] Last Admin: 05/31/16 10:48 Dose: 40 mg Tamsulosin HCl (Flomax) 0.4 mg PO DAILY [facility] Last Admin: 05/31/16 10:48 Dose: 0.4 mg - Labs Labs: 05/31/16 08:55 05/31/16 08:55 PT 11.3 SECONDS (9.7-12.2) 05/28/16 06:30 INR 1.0 05/28/16 06:30 APTT 31 SECONDS (21-34) 05/28/16 06:30 - Constitutional Appears: Well - Head Exam Head Exam: ATRAUMATIC, NORMAL INSPECTION, NORMOCEPHALIC - Eye Exam Eye Exam: EOMI, Normal appearance, PERRL Pupil Exam: NORMAL ACCOMODATION, PERRL - ENT Exam ENT Exam: Mucous Membranes Moist, Normal Exam - Neck Exam Neck Exam: Full ROM, Normal Inspection. absent: Lymphadenopathy - Respiratory Exam Respiratory Exam: Decreased Breath Sounds - Cardiovascular Exam Cardiovascular Exam: REGULAR RHYTHM, +S1, +S2 - GI/Abdominal Exam GI & Abdominal Exam: Soft, Diminished Bowel Sounds - Rectal Exam Rectal Exam: Deferred Assessment and Plan (1) Acute renal failure Status: Acute (2) Anemia Status: Acute (3) BPH (benign prostatic hyperplasia) Status: Acute (4) Bilateral edema of lower extremity Status: Acute (5) DVT prophylaxis Status: Acute (6) Dry gangrene Status: Acute (7) Gastrointestinal hemorrhage Status: Acute (8) Hypochromic microcytic anemia Status: Acute (9) Hypovolemic shock Status: Acute (10) Memory difficulty Status: Acute (11) Paresthesia of both lower extremities Status: Acute (12) Pneumonia Status: Acute (13) CHF (congestive heart failure) Status: Chronic (14) Diabetes mellitus Status: Chronic - Assessment and Plan (Free Text) Plan: f/u with GI f/u with ID f/u with international account manager f/u with pulmology event noted of respi failure f/u wit cxr continue monitor H/H protonix Imipenam/Cilastatin Novolog
--- NOTE | 2016-05-31 16:32 | CP.PCM.PN ---
Subjective - Date & Time of Evaluation Date of Evaluation: 05/31/16 Time of Evaluation: 10:40 - Subjective Subjective: Patient seen and examined this AM. No acute events. s/p flex sigmoidoscopy yesterday without active bleeding. He has not had any further bloody bowel movements. He is sitting in chair this morning. No abdominal pain. ROS otherwise negative in detail Objective - Vital Signs/Intake and Output Vital Signs (last 24 hours): Temp Pulse Resp BP Pulse Ox 98.5 F 90 17 107/51 L 100 05/31/16 12:00 05/31/16 12:00 05/31/16 12:00 05/31/16 12:00 05/31/16 12:00 Intake and Output: 05/31/16 05/31/16 06:59 18:59 Intake Total 240 Output Total 150 Balance 90 - Medications Medications: Current Medications Brimonidine Tartrate (Alphagan 0.2% Opht) 0 ml OU TID [facility] Last Admin: 05/31/16 15:12 Dose: 1 drop Dorzolamide HCl (Trusopt) 0 ml OU TID [facility] Last Admin: 05/31/16 15:11 Dose: 1 drop Insulin Aspart (Novolog) 0 unit SC ACHS [facility] PRN Reason: Protocol Last Admin: 05/31/16 12:20 Dose: 2 unit Latanoprost (Xalatan Opht) 0 ml OU HS [facility] Last Admin: 05/30/16 22:00 Dose: 2.5 ml Nystatin (Mycostatin Cream) 0 ea TOP TID [facility] Last Admin: 05/31/16 15:11 Dose: 1 applic Pantoprazole Sodium (Protonix Ec Tab) 40 mg PO BID [facility] Last Admin: 05/31/16 10:48 Dose: 40 mg Tamsulosin HCl (Flomax) 0.4 mg PO DAILY [facility] Last Admin: 05/31/16 10:48 Dose: 0.4 mg - Labs Labs: 05/31/16 08:55 05/31/16 08:55 PT 11.3 SECONDS (9.7-12.2) 05/28/16 06:30 INR 1.0 05/28/16 06:30 APTT 31 SECONDS (21-34) 05/28/16 06:30 - Constitutional Appears: No Acute Distress, Chronically Ill - ENT Exam ENT Exam: Mucous Membranes Moist - Respiratory Exam Respiratory Exam: Clear to Ausculation Bilateral - Cardiovascular Exam Cardiovascular Exam: +S1, +S2 - GI/Abdominal Exam Additional comments: abdomen soft, non tender to palpation, no rebound or guarding bowel sounds present - Neurological Exam Neurological Exam: Alert - Skin Skin Exam: Dry Assessment and Plan - Assessment and Plan (Free Text) Assessment: 85 year old male with h/o [place] complicated by CAD s/p 3 vessel CABG 2012 previously on Plavix prior to admission 04/2016, moderate aortic stenosis, ischemic cardiomyopathy 35-40%, CKD Stage 3, Hypertension, Hyperlipidemia presenting with weakness and blood in stool. He is s/p EGD showing large duodenal ulcer s/p bicap cautery. Flex sig yesterday without any evidence of active bleeding, +hemorrhoids. Plan: Continue supportive care Monitor H/H, transfuse as needed PPI BID Avoid NSAIDs Monitor for rebleeding Advance diet slowly as tolerated
[2016-05-31] MEDS ORDERED: Sodium Phosphate 15 MMOLE in Sodium Chloride 0.9% 250 ML IVPB ONE (17:06)
[2016-05-31] MEDS: Latanoprost 2.5 ml Opht Soln OU SCH (22:41)
[2016-06-01] MEDS: (Novolog) Insulin Aspart, Recombinant 100 u/ml 10 ml vial SC SCH ×4 (07:13→21:50)
[2016-06-01] MEDS: Pantoprazole 40 mg EC Tab PO SCH ×2 (09:37→18:10)
[2016-06-01] MEDS: Brimonidine 0.2% Opth Sol (5ml) OU SCH ×3 (09:38→18:11)
[2016-06-01] MEDS: Dorzolamide 2% Opht Sol 10ml OU SCH ×3 (09:38→18:11)
[2016-06-01] MEDS: Nystatin 100,000 Units/gm Cream(15 gm) TOP SCH ×3 (09:39→18:11)
--- NOTE | 2016-06-01 14:40 | CP.PCM.PN ---
<Indra Hennessy - Last Filed: 06/01/16 14:38> Subjective - Date & Time of Evaluation Date of Evaluation: 06/01/16 Time of Evaluation: 12:20 - Subjective Subjective: PGY4 GI Fellow Progress Note Patient seen and examined bedside this morning. The patient denies any complaints at this time and is resting comfortably. He has no appetite at this time and has not eaten lunch yet. Denies any nausea, vomiting, abdominal pain, melena, hematochezia, recent rectal bleeding. 12 system ROS performed and negative except where stated. Objective - Vital Signs/Intake and Output Vital Signs (last 24 hours): Temp Pulse Resp BP Pulse Ox 98.3 F 83 20 113/63 100 06/01/16 08:00 06/01/16 08:00 06/01/16 08:00 06/01/16 08:00 06/01/16 08:00 Intake and Output: 06/01/16 06/01/16 06:59 18:59 Intake Total 567 Output Total 400 Balance 167 - Medications Medications: Current Medications Brimonidine Tartrate (Alphagan 0.2% Opht) 0 ml OU TID [facility] Last Admin: 06/01/16 14:18 Dose: 1 drop Dorzolamide HCl (Trusopt) 0 ml OU TID [facility] Last Admin: 06/01/16 14:18 Dose: 1 drop Insulin Aspart (Novolog) 0 unit SC ACHS [facility] PRN Reason: Protocol Last Admin: 06/01/16 11:54 Dose: 2 unit Latanoprost (Xalatan Opht) 0 ml OU HS [facility] Last Admin: 05/31/16 22:41 Dose: 2.5 ml Nystatin (Mycostatin Cream) 0 ea TOP TID [facility] Last Admin: 06/01/16 14:20 Dose: 1 applic Pantoprazole Sodium (Protonix Ec Tab) 40 mg PO BID [facility] Last Admin: 06/01/16 09:37 Dose: 40 mg Tamsulosin HCl (Flomax) 0.4 mg PO DAILY [facility] Last Admin: 06/01/16 09:37 Dose: 0.4 mg - Labs Labs: 05/31/16 08:55 05/31/16 08:55 PT 11.3 SECONDS (9.7-12.2) 05/28/16 06:30 INR 1.0 05/28/16 06:30 APTT 31 SECONDS (21-34) 05/28/16 06:30 - Constitutional Appears: Non-toxic, No Acute Distress - Eye Exam Eye Exam: EOMI, PERRL - ENT Exam ENT Exam: Mucous Membranes Dry - Respiratory Exam Respiratory Exam: Clear to Ausculation Bilateral. absent: Rales, Rhonchi, Wheezes - Cardiovascular Exam Cardiovascular Exam: RRR, +S1, +S2 - GI/Abdominal Exam GI & Abdominal Exam: Soft, Normal Bowel Sounds. absent: Distended, Firm, Guarding, Rigid, Tenderness, Organomegaly - Extremities Exam Extremities Exam: Normal Inspection. absent: Pedal Edema - Neurological Exam Neurological Exam: Alert, Awake, Oriented x3 - Psychiatric Exam Psychiatric exam: Normal Affect, Normal Mood - Skin Skin Exam: Dry, Warm Assessment and Plan - Assessment and Plan (Free Text) Assessment: 85 year old male with h/o [place] complicated by CAD s/p 3 vessel CABG 2012 previously on Plavix prior to admission 04/2016, moderate aortic stenosis, ischemic cardiomyopathy 35-40%, CKD Stage 3, Hypertension, Hyperlipidemia presenting with weakness and blood in stool. He is s/p EGD showing large duodenal ulcer s/p bicap cautery. Flex sig without any evidence of active bleeding, +hemorrhoids. -PUD -Acute blood loss anemia Plan: -Transferred to the medical floor from ICU -No further episodes of acute bleeding, HGB stable -Continue supportive care -Avoid NSAIDs -On protonix 40mg PO BIDAC -Continue to advance diet as tolerated <Shantal Jones - Last Filed: 06/01/16 14:59> Objective - Vital Signs/Intake and Output Vital Signs (last 24 hours): Temp Pulse Resp BP Pulse Ox 98.3 F 83 20 113/63 100 06/01/16 08:00 06/01/16 08:00 06/01/16 08:00 06/01/16 08:00 06/01/16 08:00 Intake and Output: 06/01/16 06/01/16 06:59 18:59 Intake Total 567 Output Total 400 200 Balance 167 -200 - Medications Medications: Current Medications Brimonidine Tartrate (Alphagan 0.2% Opht) 0 ml OU TID [facility] Last Admin: 06/01/16 14:18 Dose: 1 drop Dorzolamide HCl (Trusopt) 0 ml OU TID [facility] Last Admin: 06/01/16 14:18 Dose: 1 drop Insulin Aspart (Novolog) 0 unit SC ACHS [facility] PRN Reason: Protocol Last Admin: 06/01/16 11:54 Dose: 2 unit Latanoprost (Xalatan Opht) 0 ml OU HS [facility] Last Admin: 05/31/16 22:41 Dose: 2.5 ml Nystatin (Mycostatin Cream) 0 ea TOP TID [facility] Last Admin: 06/01/16 14:20 Dose: 1 applic Pantoprazole Sodium (Protonix Ec Tab) 40 mg PO BID [facility] Last Admin: 06/01/16 09:37 Dose: 40 mg Tamsulosin HCl (Flomax) 0.4 mg PO DAILY [facility] Last Admin: 06/01/16 09:37 Dose: 0.4 mg - Labs Labs: 05/31/16 08:55 05/31/16 08:55 PT 11.3 SECONDS (9.7-12.2) 05/28/16 06:30 INR 1.0 05/28/16 06:30 APTT 31 SECONDS (21-34) 05/28/16 06:30 Attending/Attestation - Attestation I have personally seen and examined this patient.: Yes I have fully participated in the care of the patient.: Yes I have reviewed all pertinent clinical information, including history, physical exam and plan: Yes Notes (Text): Patient seen and examined with GI fellow. Agree with his note as documented above with the following additions/exceptions. This is an 85 year old male CAD s/p CABG previously on plavix, moderate aortic stenosis, CKD, HTN, HL who we are following for GI bleeding. He is found to have large duodenal ulcer s/p bicap cautery. He has had no further bleeding episodes, H/H stable. Would continue to monitor for rebleeding, avoid NSAIDS. Continue PPI BID. Diet as tolerated. He would benefit from surveillance EGD in 6-8 weeks. 06/01/16 14:56
--- NOTE | 2016-06-01 17:21 | CP.PCM.PN ---
Subjective - Date & Time of Evaluation Date of Evaluation: 06/01/16 Time of Evaluation: 07:00 - Subjective Subjective: clinically same Objective - Vital Signs/Intake and Output Vital Signs (last 24 hours): Temp Pulse Resp BP Pulse Ox 97.5 F L 83 20 111/63 100 06/01/16 15:27 06/01/16 15:27 06/01/16 15:27 06/01/16 15:27 06/01/16 15:27 Intake and Output: 06/01/16 06/01/16 06:59 18:59 Intake Total 567 Output Total 400 200 Balance 167 -200 - Medications Medications: Current Medications Brimonidine Tartrate (Alphagan 0.2% Opht) 0 ml OU TID [facility] Last Admin: 06/01/16 14:18 Dose: 1 drop Dorzolamide HCl (Trusopt) 0 ml OU TID [facility] Last Admin: 06/01/16 14:18 Dose: 1 drop Insulin Aspart (Novolog) 0 unit SC ACHS [facility] PRN Reason: Protocol Last Admin: 06/01/16 17:10 Dose: 2 unit Latanoprost (Xalatan Opht) 0 ml OU HS [facility] Last Admin: 05/31/16 22:41 Dose: 2.5 ml Nystatin (Mycostatin Cream) 0 ea TOP TID [facility] Last Admin: 06/01/16 14:20 Dose: 1 applic Pantoprazole Sodium (Protonix Ec Tab) 40 mg PO BID [facility] Last Admin: 06/01/16 09:37 Dose: 40 mg Potassium Phos/Sodium Phos (Neutra-Phos) 1 pkt PO TIDCC [facility] Tamsulosin HCl (Flomax) 0.4 mg PO DAILY [facility] Last Admin: 06/01/16 09:37 Dose: 0.4 mg - Labs Labs: 05/31/16 08:55 05/31/16 08:55 PT 11.3 SECONDS (9.7-12.2) 05/28/16 06:30 INR 1.0 05/28/16 06:30 APTT 31 SECONDS (21-34) 05/28/16 06:30 - Constitutional Appears: Well - Head Exam Head Exam: ATRAUMATIC, NORMAL INSPECTION, NORMOCEPHALIC - Eye Exam Eye Exam: EOMI, Normal appearance, PERRL Pupil Exam: NORMAL ACCOMODATION, PERRL - ENT Exam ENT Exam: Mucous Membranes Moist, Normal Exam - Neck Exam Neck Exam: Full ROM, Normal Inspection. absent: Lymphadenopathy - Respiratory Exam Respiratory Exam: Decreased Breath Sounds - Cardiovascular Exam Cardiovascular Exam: REGULAR RHYTHM, +S1, +S2 - GI/Abdominal Exam GI & Abdominal Exam: Soft, Diminished Bowel Sounds - Rectal Exam Rectal Exam: Deferred Assessment and Plan (1) Acute renal failure Status: Acute (2) Anemia Status: Acute (3) BPH (benign prostatic hyperplasia) Status: Acute (4) Bilateral edema of lower extremity Status: Acute (5) DVT prophylaxis Status: Acute (6) Dry gangrene Status: Acute (7) Gastrointestinal hemorrhage Status: Acute (8) Hypochromic microcytic anemia Status: Acute (9) Hypovolemic shock Status: Acute (10) Memory difficulty Status: Acute (11) Paresthesia of both lower extremities Status: Acute (12) Pneumonia Status: Acute (13) CHF (congestive heart failure) Status: Chronic (14) Diabetes mellitus Status: Chronic - Assessment and Plan (Free Text) Plan: f/u with GI f/u with ID f/u with sleeve setter safety stitch f/u with pulmology continue monitor H/H protonix Novolog
[2016-06-01] MEDS: Potassium & Sodium Phosphate PO SCH (19:45)
[2016-06-01] MEDS: Latanoprost 2.5 ml Opht Soln OU SCH (21:49)
[2016-06-02] MEDS: (Novolog) Insulin Aspart, Recombinant 100 u/ml 10 ml vial SC SCH ×4 (07:59→21:17)
[2016-06-02] MEDS: Potassium & Sodium Phosphate PO SCH ×3 (08:03→16:49)
--- NOTE | 2016-06-02 08:24 | CP.PCM.PN ---
Addendum entered and electronically signed by Denae Chakraborty DO 12:29: Original Note: <Denae Chakraborty - Last Filed: 06/02/16 12:19> Subjective - Date & Time of Evaluation Date of Evaluation: 06/02/16 Time of Evaluation: 08:20 - Subjective Subjective: Gastroenterology Fellow/PGY4 Progress Note Patient states he is thirsty. Left upper abdominal pain resolved. Continues to have poor appetite. Nursing notes two episodes of red-brown liquid stool yesterday. A 12-point review of systems negative except for as above. Objective - Vital Signs/Intake and Output Vital Signs (last 24 hours): Temp Pulse Resp BP Pulse Ox 97.6 F 68 20 124/75 100 06/02/16 00:02 06/02/16 00:02 06/02/16 00:02 06/02/16 00:02 06/02/16 00:02 Intake and Output: 06/02/16 06/02/16 06:59 18:59 Intake Total 60 Output Total 200 200 Balance -140 -200 - Medications Medications: Current Medications Brimonidine Tartrate (Alphagan 0.2% Opht) 0 ml OU TID [facility] Last Admin: 06/01/16 18:11 Dose: 1 drop Dorzolamide HCl (Trusopt) 0 ml OU TID [facility] Last Admin: 06/01/16 18:11 Dose: 1 drop Insulin Aspart (Novolog) 0 unit SC ACHS [facility] PRN Reason: Protocol Last Admin: 06/02/16 07:59 Dose: 2 unit Latanoprost (Xalatan Opht) 0 ml OU HS [facility] Last Admin: 06/01/16 21:49 Dose: 2.5 ml Nystatin (Mycostatin Cream) 0 ea TOP TID [facility] Last Admin: 06/01/16 18:11 Dose: 1 applic Pantoprazole Sodium (Protonix Ec Tab) 40 mg PO BID [facility] Last Admin: 06/01/16 18:10 Dose: 40 mg Potassium Phos/Sodium Phos (Neutra-Phos) 1 pkt PO TIDCC [facility] Last Admin: 06/02/16 08:03 Dose: 1 pkt Tamsulosin HCl (Flomax) 0.4 mg PO DAILY [facility] Last Admin: 06/01/16 09:37 Dose: 0.4 mg - Labs Labs: 05/31/16 08:55 05/31/16 08:55 PT 11.3 SECONDS (9.7-12.2) 05/28/16 06:30 INR 1.0 05/28/16 06:30 APTT 31 SECONDS (21-34) 05/28/16 06:30 - Constitutional Appears: Non-toxic, No Acute Distress - Head Exam Head Exam: ATRAUMATIC, NORMOCEPHALIC - Eye Exam Eye Exam: EOMI, PERRL Pupil Exam: PERRL. absent: Miosis, Mydriatic - ENT Exam ENT Exam: Mucous Membranes Moist, Normal Oropharynx - Neck Exam Neck Exam: Full ROM, Normal Inspection - Respiratory Exam Respiratory Exam: Clear to Ausculation Bilateral. absent: Rales, Rhonchi, Wheezes - Cardiovascular Exam Cardiovascular Exam: RRR, +S1, +S2. absent: Gallop, Rubs - GI/Abdominal Exam GI & Abdominal Exam: Soft, Normal Bowel Sounds. absent: Distended, Firm, Guarding, Rigid, Tenderness, Mass, Organomegaly, Rebound - Extremities Exam Extremities Exam: Normal Inspection, Pedal Edema - Neurological Exam Neurological Exam: Alert, Awake - Psychiatric Exam Psychiatric exam: Normal Affect, Normal Mood - Skin Skin Exam: Dry, Intact, Normal Color, Warm Assessment and Plan - Assessment and Plan (Free Text) Assessment: 85 year old male with history of [place] complicated by CAD s/p 3 vessel CABG 2012 previously on Plavix, stopped since last dischage 04/2016, moderate aortic stenosis, ischemic cardiomyopathy 35-40%, CKD Stage 3, Hypertension, Hyperlipidemia presenting with weakness and blood in stool from nursing facility. Acute on chronic normocytic anemia POD10 EGD (05/23) with nonbleeding duodenal ulcer, Patrick Class IIc Melena, ABL anemia POD9 (05/24) EGD with duodenal ulcer and stigmata of recent bleed, Patrick Class Ib and IIc s/p epinephrine/APC POD 3 (05/30) flexible sigmoidoscopy showing hemorrhoids Acute blood loss anemia,s/p 2 units pRBCs 05/22, 1 Unit 05/24, 1U 05/28 Acute on chronic anemia, 2/2 iron deficiency and chronic disease, rule out GI Bleed Multidrug resistent Proteus UTI Plan: >2 episodes of overt GI blood loss yesterday >repeat episode of melena today >monitor H/H >T&S, hold 2 Units >start PPI drip >transfer to ICU >ordered CT A/P IV contrast >request cardiology re-evaluation with history of aortic stenosis >NPO after midnighht >push enteroscopy tomorrow <Hailey Negrete MD - Last Filed: 06/02/16 15:52> Objective - Vital Signs/Intake and Output Vital Signs (last 24 hours): Temp Pulse Resp BP Pulse Ox 98.7 F 102 H 18 100/63 100 06/02/16 10:15 06/02/16 10:15 06/02/16 10:15 06/02/16 10:15 06/02/16 10:15 Intake and Output: 06/02/16 06/02/16 06:59 18:59 Intake Total 60 0 Output Total 200 200 Balance -140 -200 - Medications Medications: Current Medications Brimonidine Tartrate (Alphagan 0.2% Opht) 0 ml OU TID [facility] Last Admin: 06/02/16 13:39 Dose: 1 drop Dorzolamide HCl (Trusopt) 0 ml OU TID [facility] Last Admin: 06/02/16 13:38 Dose: 1 drop Pantoprazole Sodium 80 mg/ (Sodium Chloride) 100 mls @ 10 mls/hr IV .Q10H [facility] PRN Reason: 8 MG/HR Last Admin: 06/02/16 13:52 Dose: 10 mls/hr Insulin Aspart (Novolog) 0 unit SC ACHS [facility] PRN Reason: Protocol Last Admin: 06/02/16 12:29 Dose: 4 unit Latanoprost (Xalatan Opht) 0 ml OU HS [facility] Last Admin: 06/01/16 21:49 Dose: 2.5 ml Nystatin (Mycostatin Cream) 0 ea TOP TID [facility] Last Admin: 06/02/16 13:40 Dose: 1 applic Potassium Phos/Sodium Phos (Neutra-Phos) 1 pkt PO TIDCC [facility] Last Admin: 06/02/16 11:49 Dose: Not Given Tamsulosin HCl (Flomax) 0.4 mg PO DAILY [facility] Last Admin: 06/02/16 09:36 Dose: 0.4 mg - Labs Labs: 06/02/16 11:21 06/02/16 09:21 PT 12.8 SECONDS (9.7-12.2) H 06/02/16 09:21 INR 1.2 06/02/16 09:21 APTT 31 SECONDS (21-34) 05/28/16 06:30 Attending/Attestation - Attestation I have personally seen and examined this patient.: Yes I have fully participated in the care of the patient.: Yes I have reviewed all pertinent clinical information, including history, physical exam and plan: Yes Notes (Text): 06/02/16 15:47 patient seen and examined with GI fellow on rounds this am. This is a 85 year old male with history of [place] complicated by CAD s/p 3 vessel CABG 2012 previously on Plavix, stopped since last dischage 04/2016, moderate aortic stenosis, ischemic cardiomyopathy 35-40%, CKD Stage 3, Hypertension, Hyperlipidemia presenting with weakness and blood in stool from nursing facility s/p EGD (05/23) with nonbleeding duodenal ulcer, Patrick Class IIc, with melena on 05/24 with second look EGD with duodenal ulcer and stigmata of recent bleed, Patrick Class Ib and IIc s/p epinephrine/APC with repeat maroon stools on 05/30 and flexible sigmoidoscopy showing hemorrhoids with drop in Hb and maroon stools yesterday and melena today. Resuscitate as cardiac status permits with scheduled push enteroscopy for am. NPO status. Start PPI gtt and monitored in ICU setting.
--- NOTE | 2016-06-02 09:12 | CP.PCM.PN ---
Objective - Vital Signs/Intake and Output Vital Signs (last 24 hours): Temp Pulse Resp BP Pulse Ox 97.6 F 68 20 124/75 100 06/02/16 00:02 06/02/16 00:02 06/02/16 00:02 06/02/16 00:02 06/02/16 00:02 Intake and Output: 06/02/16 06/02/16 06:59 18:59 Intake Total 60 Output Total 200 200 Balance -140 -200 - Medications Medications: Current Medications Brimonidine Tartrate (Alphagan 0.2% Opht) 0 ml OU TID [facility] Last Admin: 06/01/16 18:11 Dose: 1 drop Dorzolamide HCl (Trusopt) 0 ml OU TID [facility] Last Admin: 06/01/16 18:11 Dose: 1 drop Insulin Aspart (Novolog) 0 unit SC ACHS [facility] PRN Reason: Protocol Last Admin: 06/02/16 07:59 Dose: 2 unit Latanoprost (Xalatan Opht) 0 ml OU HS [facility] Last Admin: 06/01/16 21:49 Dose: 2.5 ml Nystatin (Mycostatin Cream) 0 ea TOP TID [facility] Last Admin: 06/01/16 18:11 Dose: 1 applic Pantoprazole Sodium (Protonix Ec Tab) 40 mg PO BID [facility] Last Admin: 06/01/16 18:10 Dose: 40 mg Potassium Phos/Sodium Phos (Neutra-Phos) 1 pkt PO TIDCC [facility] Last Admin: 06/02/16 08:03 Dose: 1 pkt Tamsulosin HCl (Flomax) 0.4 mg PO DAILY [facility] Last Admin: 06/01/16 09:37 Dose: 0.4 mg - Labs Labs: 05/31/16 08:55 05/31/16 08:55 PT 11.3 SECONDS (9.7-12.2) 05/28/16 06:30 INR 1.0 05/28/16 06:30 APTT 31 SECONDS (21-34) 05/28/16 06:30
[2016-06-02 09:27] LABS: BASO % 0.3 % (0.0-2.0); EOS # 0.1 K/uL (0.0-0.7); EOS % 1.1 % (0.0-4.0); HEMATOCRIT 21.8 % (35.0-51.0); LYMPH # 1.9 K/uL (1.0-4.3); LYMPH % 19.3 % (20.0-40.0); MEAN CELL VOLUME 88.1 fL (80.0-94.0); MEAN CORPUSCULAR HEMOGLOBIN 27.9 pg (27.0-31.0); MEAN CORPUSCULAR HGB CONC 31.7 g/dL (33.0-37.0); MEAN PLATELET VOLUME 8.3 fL (7.2-11.7); MONO # 0.6 K/uL (0.0-0.8); MONO % 5.9 % (0.0-10.0); NRBC % 0.1 % (0.0-2.0); RED CELL DISTRIBUTION WIDTH 21.1 % (11.5-14.5); WHITE BLOOD COUNT 10.1 K/uL (4.8-10.8)
[2016-06-02 09:32] LABS: INR 1.2
[2016-06-02 09:33] LABS: CHLORIDE 119 mmol/L (98-107)
[2016-06-02 09:34] LABS: POTASSIUM 3.5 mmol/L (3.6-5.2); SODIUM 146 mmol/L (132-148)
[2016-06-02 09:36] LABS: BILIRUBIN,TOTAL < 0.1 mg/dL (0.2-1.3); GFR AFRICAN-AMERICAN > 60
[2016-06-02] MEDS: Nystatin 100,000 Units/gm Cream(15 gm) TOP SCH ×3 (09:36→17:18)
[2016-06-02] MEDS: Pantoprazole 40 mg EC Tab PO SCH (09:36)
[2016-06-02 09:37] LABS: ALB/GLOB RATIO 0.7 (1.0-2.1); ALKALINE PHOSPHATASE 48 U/L (38-126); ALT/SGPT 11 U/L (21-72); AST/SGOT 11 U/L (17-59); BLOOD UREA NITROGEN 13 mg/dL (9-20); CALCIUM 7.3 mg/dl (8.6-10.4); CARBON DIOXIDE 17 mmol/L (22-30); GLUCOSE,RANDOM 148 mg/dL (75-110); TOTAL PROTEIN 4.2 g/dL (6.3-8.3)
[2016-06-02] MEDS: Brimonidine 0.2% Opth Sol (5ml) OU SCH ×3 (09:37→17:19)
[2016-06-02] MEDS: Dorzolamide 2% Opht Sol 10ml OU SCH ×3 (09:37→17:18)
[2016-06-02 11:32] LABS: WHITE BLOOD COUNT 9.9 K/uL (4.8-10.8)
[2016-06-02 11:36] LABS: HEMATOCRIT 20.2 % (35.0-51.0); MEAN CELL VOLUME 88.2 fL (80.0-94.0); MEAN CORPUSCULAR HEMOGLOBIN 28.2 pg (27.0-31.0); MEAN PLATELET VOLUME 8.2 fL (7.2-11.7); RED CELL DISTRIBUTION WIDTH 21.3 % (11.5-14.5)
[2016-06-02] MEDS ORDERED: Pantoprazole 80 MG in Sodium Chloride 0.9% 100 ML IVP ONE (13:00)
[2016-06-02] MEDS ORDERED: Pantoprazole 80 MG in Sodium Chloride 0.9% 100 ML IV ONE (13:10)
[2016-06-02] MEDS ORDERED: Potassium Chloride 20 mEq ER Tab PO STA (13:47)
[2016-06-02] MEDS: Pantoprazole 80 MG in Sodium Chloride 0.9% 100 ML IV SCH (13:52)
[2016-06-02] MEDS ORDERED: Iodixanol 320 MG/ML 100 ML BOTTLE IV ONE (14:17)
--- NOTE | 2016-06-02 16:11 | CT ---
PROCEDURE: CT Abdomen and Pelvis with contrast HISTORY: abdominal pain COMPARISON: Comparison is made to the previous study dated 04/11/2015 TECHNIQUE: Contrast dose: 100 mL of Visipaque Radiation dose: Total exam DLP = 1090.18 mGy-cm. FINDINGS: LOWER THORAX: Interval appearance of small/trace bilateral pleural effusions and bilateral small airspace opacities in the lung bases. Moderate cardiomegaly is again noted. LIVER: Unremarkable. No gross lesion or ductal dilatation. GALLBLADDER AND BILE DUCTS: Status post cholecystectomy. PANCREAS: Mild stranding adjacent to the pancreatic head. Otherwise the pancreatic body and tail are grossly unremarkable. SPLEEN: Unremarkable. ADRENALS: Unremarkable. No mass. KIDNEYS AND URETERS: Unremarkable. No hydronephrosis. No solid mass. VASCULATURE: Unremarkable. No aortic aneurysm. BOWEL: Moderate stomach and duodenal wall thickening with adjacent fat stranding. Correlate clinically for gastroenteritis. [id number] rectal wall thickening and mild sigmoid wall thickening. The possibility of colitis also should be considered. No evidence of small bowel obstruction. Postsurgical changes suggestive of right colon prior partial resection. APPENDIX: The appendix is not visualized. PERITONEUM: Unremarkable. No free fluid. No free air. LYMPH NODES: Unremarkable. No enlarged lymph nodes. BLADDER: Cardenas catheter seen in the bladder. Small to moderate amount of air in the bladder. REPRODUCTIVE: Prostate is mildly enlarged. BONES: No acute fracture. 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 IMPRESSION: Interval appearance of small bilateral pleural effusions larger on the left associated with small airspace consolidation at the lung bases. Correlate clinically for aspiration pneumonia or atelectasis. Cardiomegaly. Gastric and duodenal wall thickening suspicious for gastroenteritis. Distal large bowel wall thickening also suspicious for colitis. No evidence of bowel obstruction. Mild stranding adjacent to the pancreatic head likely due to adjacent duodenitis the possibility of pancreatitis is less likely. Additional findings as described above.
--- NOTE | 2016-06-02 16:21 | CP.PCM.CON ---
<Supa Mclean - Last Filed: 06/02/16 17:11> History of Present Illness - History of Present Illness History of Present Illness: CRITICAL CARE CONSULT NOTE 85 year old male with history of Anemia requiring transfusion 04/2015 as well as present admission, OR complicated by CAD s/p 3 vessel CABG 2012 previously on Plavix prior to admission 04/2016, moderate aortic stenosis, ischemic cardiomyopathy 35-40%, Hypertension, Hyperlipidemia presents with anemia ( Hgb noted 6.5) as well as three bout sof hematochezia today. Patient was recently transferred out of the ICU last week after noted improvement. Patient and family have remarked on noted weakness since hospitalization that has not improved. Patient has been having intermittent events of hematochezia with resolution over the past couple of weeks. Patient denies chest pain, palpitations, abdominal pain, nausea, vomiting, shortness of breath, chest pain , headaches, confusion, diarrhea, constipation, or changes in weight. Hematochezia was noted by nursing team. GI has been on the case. PMHx- as noted above PSHx- CABG 2013 Family-denies Colon cancer Social- Former smoker. Currently denies tobacco, alcohol, illicit drug use Allergies- NKDA Review of Systems - Review of Systems Review of Systems: hard of hearing - Constitutional Constitutional: absent: Chills, Fever - EENT Eyes: absent: Blurred Vision, Change in Vision Ears: Decreased Hearing Nose/Mouth/Throat: absent: Epistaxis, Nasal Congestion - Cardiovascular Cardiovascular: absent: Chest Pain, Chest Pain at Rest, Dyspnea, Dyspnea on Exertion, Edema - Respiratory Respiratory: absent: Cough, Dyspnea - Gastrointestinal Gastrointestinal: Hematochezia. absent: Abdominal Pain, Heartburn, Nausea, Vomiting - Genitourinary Genitourinary: absent: Change in Urinary Stream - Musculoskeletal Musculoskeletal: absent: Back Pain, Myalgias, Neck Pain - Integumentary Integumentary: Dry Skin - Neurological Neurological: absent: Abnormal Movements - Psychiatric Psychiatric: absent: Confusion - Endocrine Endocrine: Fatigue. absent: Change in Body Appearance, Heat Intolorance - Hematologic/Lymphatic Hematologic: absent: Lymphadenopathy Past Patient History - Tetanus Immunizations Tetanus Immunization: Unknown - Past Medical History & Family History Past Medical History?: Yes - Past Social History Smoking Status: Former Smoker Alcohol: None - CARDIAC Hx Cardiac Disorders: Yes Hx Congestive Heart Failure: Yes Hx Hypertension: Yes - PULMONARY Hx Respiratory Disorders: Yes Hx Pneumonia: Yes - NEUROLOGICAL Hx Neurological Disorder: Yes HX Cerebrovascular Accident: Yes - HEENT Hx HEENT Problems: Yes Hx Glaucoma: Yes - RENAL Hx Chronic Kidney Disease: Yes Other/Comment: ckd - ENDOCRINE/METABOLIC Hx Diabetes Mellitus Type 2: Yes - HEMATOLOGICAL/ONCOLOGICAL Hx Blood Disorders: Yes Hx Anemia: Yes - INTEGUMENTARY Hx Dermatological Problems: No - MUSCULOSKELETAL/RHEUMATOLOGICAL Hx Musculoskeletal Disorders: Yes Hx Falls: Yes - GASTROINTESTINAL Hx Gastrointestinal Disorders: No - GENITOURINARY/GYNECOLOGICAL Hx Genitourinary Disorders: No - PSYCHIATRIC Hx Psychophysiologic Disorder: No Hx Substance Use: No - SURGICAL HISTORY Hx Surgeries: Yes Hx Appendectomy: Yes (2014) Hx Coronary Artery Bypass Graft: Yes (2012) - ANESTHESIA Hx Anesthesia: Yes Hx Anesthesia Reactions: No Hx Malignant Hyperthermia: No Has any member of the family had a problem w/ anesthesia?: No Meds Allergies/Adverse Reactions: Allergies Allergy/AdvReac Type Severity Reaction Status Date / Time No Known Allergies Allergy Unverified 05/21/16 23:21 - Medications Medications: Current Medications Brimonidine Tartrate (Alphagan 0.2% Opht) 0 ml OU TID LASHA Last Admin: 06/02/16 13:39 Dose: 1 drop Dorzolamide HCl (Trusopt) 0 ml OU TID LASHA Last Admin: 06/02/16 13:38 Dose: 1 drop Pantoprazole Sodium 80 mg/ (Sodium Chloride) 100 mls @ 10 mls/hr IV .Q10H LASHA PRN Reason: 8 MG/HR Last Admin: 06/02/16 13:52 Dose: 10 mls/hr Insulin Aspart (Novolog) 0 unit SC ACHS LASHA PRN Reason: Protocol Last Admin: 06/02/16 12:29 Dose: 4 unit Latanoprost (Xalatan Opht) 0 ml OU HS LASHA Last Admin: 06/01/16 21:49 Dose: 2.5 ml Nystatin (Mycostatin Cream) 0 ea TOP TID [facility] Last Admin: 06/02/16 13:40 Dose: 1 applic Potassium Phos/Sodium Phos (Neutra-Phos) 1 pkt PO TIDCC [facility] Last Admin: 06/02/16 11:49 Dose: Not Given Tamsulosin HCl (Flomax) 0.4 mg PO DAILY [facility] Last Admin: 06/02/16 09:36 Dose: 0.4 mg Physical Exam - Constitutional Appears: Non-toxic, No Acute Distress - Head Exam Head Exam: ATRAUMATIC, NORMAL INSPECTION, NORMOCEPHALIC - Eye Exam Eye Exam: EOMI Pupil Exam: NORMAL ACCOMODATION, PERRL Additional comments: conjunctival pallor - ENT Exam ENT Exam: Mucous Membranes Moist - Neck Exam Neck exam: Positive for: Full Rom - Respiratory Exam Respiratory Exam: NORMAL BREATHING PATTERN. absent: Wheezes - Cardiovascular Exam Cardiovascular Exam: +S1, +S2. absent: Tachycardia - GI/Abdominal Exam GI & Abdominal Exam: Normal Bowel Sounds, Soft. absent: Distended, Firm, Guarding, Tenderness - Rectal Exam Rectal Exam: Deferred, Bloody Stool - Extremities Exam Extremities exam: Positive for: full ROM, normal capillary refill, normal inspection, pedal pulses present. Negative for: calf tenderness, pedal edema, tenderness - Back Exam Back exam: FULL ROM, NORMAL INSPECTION - Neurological Exam Neurological exam: Alert - Psychiatric Exam Psychiatric exam: Normal Affect, Normal Mood - Skin Skin Exam: Dry, Intact, Normal Color, Warm Results - Vital Signs Recent Vital Signs: Last Vital Signs Temp 97.8 F 06/02/16 15:39 Pulse 82 06/02/16 15:39 Resp 16 06/02/16 15:39 BP 109/64 06/02/16 15:39 Pulse Ox 100 06/02/16 15:00 - Labs Result Diagrams: 06/02/16 11:21 06/02/16 09:21 Labs: Laboratory Results - last 24 hr 06/01/16 06/01/16 06/02/16 16:45 21:28 07:53 WBC RBC Hgb Hct MCV MCH MCHC RDW Plt Count MPV Neut % (Auto) Lymph % (Auto) [place] % (Auto) Eos % (Auto) Baso % (Auto) Neut # Lymph # [place] # Eos # Baso # Differential Comment PT INR Sodium Potassium Chloride Carbon Dioxide Anion Gap BUN Creatinine Est GFR ( Amer) Est GFR (Non-Af Amer) POC Glucose (mg/dL) 176 H 163 H 170 H Random Glucose Calcium Total Bilirubin AST ALT Alkaline Phosphatase Total Protein Albumin Globulin Albumin/Globulin Ratio Blood Type Antibody Screen 06/02/16 06/02/16 06/02/16 09:21 11:21 11:30 WBC 10.1 9.9 RBC 2.47 L 2.29 L Hgb 6.9 L 6.5 L* Hct 21.8 L 20.2 L MCV 88.1 88.2 MCH 27.9 28.2 MCHC 31.7 L 32.0 L RDW 21.1 H 21.3 H Plt Count 103 L D 101 L MPV 8.3 8.2 Neut % (Auto) 73.4 Lymph % (Auto) 19.3 L [place] % (Auto) 5.9 Eos % (Auto) 1.1 Baso % (Auto) 0.3 Neut # 7.4 H Lymph # 1.9 [place] # 0.6 Eos # 0.1 Baso # 0.0 Differential Comment PT 12.8 H INR 1.2 Sodium 146 Potassium 3.5 L Chloride 119 H Carbon Dioxide 17 L Anion Gap 14 BUN 13 Creatinine 1.3 Est GFR ( Amer) > 60 Est GFR (Non-Af Amer) 53 POC Glucose (mg/dL) Random Glucose 148 H Calcium 7.3 L Total Bilirubin < 0.1 L AST 11 L D ALT 11 L D Alkaline Phosphatase 48 Total Protein 4.2 L Albumin 1.7 L Globulin 2.5 Albumin/Globulin Ratio 0.7 L Blood Type O POSITIVE Antibody Screen Negative 06/02/16 12:10 WBC RBC Hgb Hct MCV MCH MCHC RDW Plt Count MPV Neut % (Auto) Lymph % (Auto) [place] % (Auto) Eos % (Auto) Baso % (Auto) Neut # Lymph # [place] # Eos # Baso # Differential Comment PT INR Sodium Potassium Chloride Carbon Dioxide Anion Gap BUN Creatinine Est GFR ( Amer) Est GFR (Non-Af Amer) POC Glucose (mg/dL) 205 H Random Glucose Calcium Total Bilirubin AST ALT Alkaline Phosphatase Total Protein Albumin Globulin Albumin/Globulin Ratio Blood Type Antibody Screen Assessment & Plan - Assessment and Plan (Free Text) Assessment: 85 year old male with history of anemia requiring transfusion 04/2015, OR complicated by CAD s/p 3 vessel CABG 2012 previously on Plavix prior to admission 04/2016, moderate aortic stenosis, ischemic cardiomyopathy 35-40%, CKD Stage 3, Hypertension, Hyperlipidemia presenting with weakness and blood in stool. Recent discharge for pneumonia to rehabilitation center 04/30/16. Acute treatment of acute anemia, FOBT positive, and hypotension. Prior EGD and colonoscopy 04/2015 showed gastric AVM, normal colon, and internal hemorrhoids. Status post EGD consistent with esophagitis, gastric ulcers, large duodenal bulb/sweep ulcer with stigmata of recent bleed- pigmented spot, status post epinephrine injection. Patient previously stable for transfer to the floors; however has had recent recurrent episodes of hematochezia with drop in Hgb to 6.5 prompting transfer back to ICU for critical care monitoring Plan: Neuro: Neurocheck q4 Cardio: Hypotensive but stable Monitor 05/22 EKG: right BBB, PACs, PVCs Sinus rhythm at 69 bpm. HEENT: Brimonidine tartrate 1 drop in affected eyes TID LASHA Dorzolamide 1 drop in affected eyes TID LASHA Pulm: CT abd/pelvis 06/02- small bilateral pleural effusions at lung bases Maintain O2 Sat >92% Guaifenesin 600 mg PO BID Imagin/17 CXR: Mild increased pulmonary vascular congestion. 05/22 CXR: No interval pathology indicated Endo: DM Maintain euglycemia Sliding scale Novolog units SC Q6 Latanoprost OU HS LASHA GI: Hematochezia x3 on 06/[address]/Pelvis- gastric and duodenal wall thickening suspicious for colitis. no evidence of bowel obstruction; See full report Melena in AM 05/27- Remain on clears- GI recommendations to continue PPI infusions for an additional 24-48 hrs. Monitor Daily CMP Procedures: 05/23 EGD: GE junction @ 35 cm hiatal narrowing @37 cm. Post op diagnosis: non- bleeding gastric ulcer. Gastritis. Esophagitis, hiatal hernia. 05/23 EGD report: LA Grade D esophagitis ( one or more mucosal breaks involving 75% of esophageal circumference) no bleeding found. Biopsies taken for histology. 4mm superficial non-bleeding ulcer in gastric body. 3 mm non bleeding ulcer in gastric antrum. 1 cm hiatus hernia present. Non-bleeding linear duodenal ulcer with black pigmented spot (Patrick Class IIC) found in duodenal bulb. 05/26: Per GI, no colonoscopy per now. Patient on clear liquid diet and will monitor flexiseal. F/U repeat labs at noon NPO after midnight for push enteroscopy tmrw. : BPH Monitor I/Os Tamsulosin 0.4 mg PO daily Renal: Monitor I/Os Hypokalemia- repleted Cont o monitor electrolytes Heme: H&H 6.9-> 6.5. Transfused 1 unit while on floor. Will transfuse another unit. F/ U repeat CBC Daily CBC Folic Acid 1 mg IV MSK: PT/OT eval ID: WBC WNL Daily CBC Cefepime 1 grm 50 cc @ 100 cc/hr Nystatin cream TID LASHA Vancomycin 200 cc @ 133.33 cc/hr IVPB Q24H UTI with Proteus mirabilis continue Primaxin. Stopped vancomycin Prophylaxis: DVT: held due to bleed, SCDs on GI: Protonix drip <Jocelyn Linares - Last Filed: 06/02/16 18:46> Meds - Medications Medications: Current Medications Brimonidine Tartrate (Alphagan 0.2% Opht) 0 ml OU TID [facility] Last Admin: 06/02/16 17:19 Dose: 1 drop Dorzolamide HCl (Trusopt) 0 ml OU TID [facility] Last Admin: 06/02/16 17:18 Dose: 1 drop Pantoprazole Sodium 80 mg/ (Sodium Chloride) 100 mls @ 10 mls/hr IV .Q10H LASHA PRN Reason: 8 MG/HR Last Admin: 06/02/16 13:52 Dose: 10 mls/hr Insulin Aspart (Novolog) 0 unit SC ACHS LASHA PRN Reason: Protocol Last Admin: 06/02/16 16:36 Dose: 2 unit Latanoprost (Xalatan Opht) 0 ml OU HS [facility] Last Admin: 06/01/16 21:49 Dose: 2.5 ml Nystatin (Mycostatin Cream) 0 ea TOP TID [facility] Last Admin: 06/02/16 17:18 Dose: 1 applic Potassium Phos/Sodium Phos (Neutra-Phos) 1 pkt PO TIDCC [facility] Last Admin: 06/02/16 16:49 Dose: 1 pkt Tamsulosin HCl (Flomax) 0.4 mg PO DAILY [facility] Last Admin: 06/02/16 09:36 Dose: 0.4 mg Results - Vital Signs Recent Vital Signs: Last Vital Signs Temp 97.3 F L 06/02/16 18:23 Pulse 75 06/02/16 18:23 Resp 16 06/02/16 18:23 BP 103/61 06/02/16 18:23 Pulse Ox 100 06/02/16 18:00 - Labs Result Diagrams: 06/02/16 11:21 06/02/16 09:21 Labs: Laboratory Results - last 24 hr 06/01/16 06/02/16 06/02/16 21:28 07:53 09:21 WBC 10.1 RBC 2.47 L Hgb 6.9 L Hct 21.8 L MCV 88.1 MCH 27.9 MCHC 31.7 L RDW 21.1 H Plt Count 103 L D MPV 8.3 Neut % (Auto) 73.4 Lymph % (Auto) 19.3 L [place] % (Auto) 5.9 Eos % (Auto) 1.1 Baso % (Auto) 0.3 Neut # 7.4 H Lymph # 1.9 [place] # 0.6 Eos # 0.1 Baso # 0.0 Differential Comment PT 12.8 H INR 1.2 Sodium 146 Potassium 3.5 L Chloride 119 H Carbon Dioxide 17 L Anion Gap 14 BUN 13 Creatinine 1.3 Est GFR ( Amer) > 60 Est GFR (Non-Af Amer) 53 POC Glucose (mg/dL) 163 H 170 H Random Glucose 148 H Calcium 7.3 L Total Bilirubin < 0.1 L AST 11 L D ALT 11 L D Alkaline Phosphatase 48 Total Protein 4.2 L Albumin 1.7 L Globulin 2.5 Albumin/Globulin Ratio 0.7 L Blood Type Antibody Screen 06/02/16 06/02/16 06/02/16 11:21 11:30 12:10 WBC 9.9 RBC 2.29 L Hgb 6.5 L* Hct 20.2 L MCV 88.2 MCH 28.2 MCHC 32.0 L RDW 21.3 H Plt Count 101 L MPV 8.2 Neut % (Auto) Lymph % (Auto) [place] % (Auto) Eos % (Auto) Baso % (Auto) Neut # Lymph # [place] # Eos # Baso # Differential Comment PT INR Sodium Potassium Chloride Carbon Dioxide Anion Gap BUN Creatinine Est GFR ( Amer) Est GFR (Non-Af Amer) POC Glucose (mg/dL) 205 H Random Glucose Calcium Total Bilirubin AST ALT Alkaline Phosphatase Total Protein Albumin Globulin Albumin/Globulin Ratio Blood Type O POSITIVE Antibody Screen Negative 06/02/16 16:21 WBC RBC Hgb Hct MCV MCH MCHC RDW Plt Count MPV Neut % (Auto) Lymph % (Auto) [place] % (Auto) Eos % (Auto) Baso % (Auto) Neut # Lymph # [place] # Eos # Baso # Differential Comment PT INR Sodium Potassium Chloride Carbon Dioxide Anion Gap BUN Creatinine Est GFR ( Amer) Est GFR (Non-Af Amer) POC Glucose (mg/dL) 168 H Random Glucose Calcium Total Bilirubin AST ALT Alkaline Phosphatase Total Protein Albumin Globulin Albumin/Globulin Ratio Blood Type Antibody Screen Attending/Attestation - Attestation I have personally seen and examined this patient.: Yes I have fully participated in the care of the patient.: Yes I have reviewed all pertinent clinical information: Yes Notes (Text): 06/02/16 18:46 Patient was seen by commercial real estate associate today. Patient is having persistent bleeding. Most likely small bowel bleeding. Spoke to the commercial real estate associate. We will bring the patient to ICU, close to monitor the patient, transfusion as needed. Overall prognosis is guarded.
[2016-06-02] MEDS ORDERED: Potassium Chloride 20 mEq 100 ML IVPB ONE (16:27)
--- NOTE | 2016-06-02 17:40 | CP.PCM.PN ---
Subjective - Date & Time of Evaluation Date of Evaluation: 06/02/16 Time of Evaluation: 12:20 - Subjective Subjective: clinically same Objective - Vital Signs/Intake and Output Vital Signs (last 24 hours): Temp Pulse Resp BP Pulse Ox 97.6 F 83 16 105/60 100 06/02/16 16:24 06/02/16 17:00 06/02/16 17:00 06/02/16 17:00 06/02/16 17:00 Intake and Output: 06/02/16 06/02/16 06:59 18:59 Intake Total 60 290 Output Total 200 275 Balance -140 15 - Medications Medications: Current Medications Brimonidine Tartrate (Alphagan 0.2% Opht) 0 ml OU TID LASHA Last Admin: 06/02/16 17:19 Dose: 1 drop Dorzolamide HCl (Trusopt) 0 ml OU TID LASHA Last Admin: 06/02/16 17:18 Dose: 1 drop Pantoprazole Sodium 80 mg/ (Sodium Chloride) 100 mls @ 10 mls/hr IV .Q10H LASHA PRN Reason: 8 MG/HR Last Admin: 06/02/16 13:52 Dose: 10 mls/hr Potassium Chloride (Potassium Chloride 20 Meq/100 Ml) 100 mls @ 50 mls/hr IVPB ONCE ONE Stop: 06/02/16 18:26 Last Admin: 06/02/16 16:35 Dose: 50 mls/hr Insulin Aspart (Novolog) 0 unit SC ACHS LASHA PRN Reason: Protocol Last Admin: 06/02/16 16:36 Dose: 2 unit Latanoprost (Xalatan Opht) 0 ml OU HS [facility] Last Admin: 06/01/16 21:49 Dose: 2.5 ml Nystatin (Mycostatin Cream) 0 ea TOP TID [facility] Last Admin: 06/02/16 17:18 Dose: 1 applic Potassium Phos/Sodium Phos (Neutra-Phos) 1 pkt PO TIDCC [facility] Last Admin: 06/02/16 16:49 Dose: 1 pkt Tamsulosin HCl (Flomax) 0.4 mg PO DAILY [facility] Last Admin: 06/02/16 09:36 Dose: 0.4 mg - Labs Labs: 06/02/16 11:21 06/02/16 09:21 PT 12.8 SECONDS (9.7-12.2) H 06/02/16 09:21 INR 1.2 06/02/16 09:21 APTT 31 SECONDS (21-34) 05/28/16 06:30 - Constitutional Appears: Well - Head Exam Head Exam: ATRAUMATIC, NORMAL INSPECTION, NORMOCEPHALIC - Eye Exam Eye Exam: EOMI, Normal appearance, PERRL Pupil Exam: NORMAL ACCOMODATION, PERRL - ENT Exam ENT Exam: Mucous Membranes Moist, Normal Exam - Neck Exam Neck Exam: Full ROM, Normal Inspection. absent: Lymphadenopathy - Cardiovascular Exam Cardiovascular Exam: REGULAR RHYTHM, +S1, +S2 - GI/Abdominal Exam GI & Abdominal Exam: Soft, Diminished Bowel Sounds - Rectal Exam Rectal Exam: Deferred Assessment and Plan (1) Acute renal failure Status: Acute (2) Anemia Status: Acute (3) BPH (benign prostatic hyperplasia) Status: Acute (4) Bilateral edema of lower extremity Status: Acute (5) DVT prophylaxis Status: Acute (6) Dry gangrene Status: Acute (7) Gastrointestinal hemorrhage Status: Acute (8) Hypochromic microcytic anemia Status: Acute (9) Hypovolemic shock Status: Acute (10) Memory difficulty Status: Acute (11) Paresthesia of both lower extremities Status: Acute (12) Pneumonia Status: Acute (13) CHF (congestive heart failure) Status: Chronic (14) Diabetes mellitus Status: Chronic - Assessment and Plan (Free Text) Plan: f/u with GI f/u with ID f/u with storekeeper engineering f/u with pulmology flexible sigmoidoscopy showing hemorrhoids with drop in Hb and maroon stools yesterday and melena today continue monitor H/H protonix Imipenam/Cilastatin Novolog
[2016-06-02] MEDS: Latanoprost 2.5 ml Opht Soln OU SCH (21:26)
[2016-06-02 22:38] LABS: BASO % 0.3 % (0.0-2.0); EOS # 0.1 K/uL (0.0-0.7); EOS % 0.8 % (0.0-4.0); HEMATOCRIT 27.2 % (35.0-51.0); LYMPH # 2.5 K/uL (1.0-4.3); LYMPH % 22.1 % (20.0-40.0); MEAN CELL VOLUME 87.7 fL (80.0-94.0); MEAN CORPUSCULAR HEMOGLOBIN 28.5 pg (27.0-31.0); MEAN CORPUSCULAR HGB CONC 32.5 g/dL (33.0-37.0); MEAN PLATELET VOLUME 8.5 fL (7.2-11.7); MONO # 0.7 K/uL (0.0-0.8); MONO % 6.3 % (0.0-10.0); NRBC % 0.1 % (0.0-2.0); RED CELL DISTRIBUTION WIDTH 17.8 % (11.5-14.5); WHITE BLOOD COUNT 11.1 K/uL (4.8-10.8)
[2016-06-03] MEDS: Pantoprazole 80 MG in Sodium Chloride 0.9% 100 ML IV SCH ×3 (00:05→19:58)
[2016-06-03 04:56] LABS: BASO # 0.1 K/uL (0.0-0.2); BASO % 0.5 % (0.0-2.0); EOS # 0.1 K/uL (0.0-0.7); EOS % 0.9 % (0.0-4.0); HEMATOCRIT 27.4 % (35.0-51.0); LYMPH # 2.2 K/uL (1.0-4.3); LYMPH % 19.2 % (20.0-40.0); MEAN CELL VOLUME 87.1 fL (80.0-94.0); MEAN CORPUSCULAR HEMOGLOBIN 28.6 pg (27.0-31.0); MEAN CORPUSCULAR HGB CONC 32.9 g/dL (33.0-37.0); MEAN PLATELET VOLUME 8.5 fL (7.2-11.7); MONO # 0.7 K/uL (0.0-0.8); MONO % 5.9 % (0.0-10.0); NRBC % 0.1 % (0.0-2.0); WHITE BLOOD COUNT 11.7 K/uL (4.8-10.8)
[2016-06-03 05:05] LABS: CHLORIDE 121 mmol/L (98-107); SODIUM 144 mmol/L (132-148)
[2016-06-03 05:06] LABS: POTASSIUM 3.8 mmol/L (3.6-5.2)
[2016-06-03 05:07] LABS: GFR AFRICAN-AMERICAN > 60
[2016-06-03 05:08] LABS: ALB/GLOB RATIO 0.6 (1.0-2.1); ALKALINE PHOSPHATASE 48 U/L (38-126); ALT/SGPT 23 U/L (21-72); AST/SGOT 13 U/L (17-59); BILIRUBIN,TOTAL 0.4 mg/dL (0.2-1.3); BLOOD UREA NITROGEN 15 mg/dL (9-20); CARBON DIOXIDE 16 mmol/L (22-30); GLUCOSE,RANDOM 129 mg/dL (75-110); PHOSPHOROUS 1.9 mg/dL (2.5-4.5); TOTAL PROTEIN 4.5 g/dL (6.3-8.3)
[2016-06-03 05:09] LABS: CALCIUM 7.3 mg/dl (8.6-10.4); MAGNESIUM 1.7 mg/dL (1.6-2.3)
[2016-06-03] MEDS: (Novolog) Insulin Aspart, Recombinant 100 u/ml 10 ml vial SC SCH ×4 (07:42→22:44)
[2016-06-03] MEDS: Potassium & Sodium Phosphate PO SCH ×3 (07:42→17:04)
[2016-06-03] MEDS: Dorzolamide 2% Opht Sol 10ml OU SCH ×3 (09:40→17:04)
[2016-06-03] MEDS: Brimonidine 0.2% Opth Sol (5ml) OU SCH ×3 (09:40→17:04)
[2016-06-03] MEDS: Nystatin 100,000 Units/gm Cream(15 gm) TOP SCH ×3 (09:40→17:04)
[2016-06-03] MEDS ORDERED: Sodium Phosphate 15 MMOLE in Sodium Chloride 0.9% 250 ML IVPB ONE (10:24)
--- NOTE | 2016-06-03 10:49 | CP.PCM.PN ---
Subjective - Date & Time of Evaluation Date of Evaluation: 06/03/16 Time of Evaluation: 02:00 - Subjective Subjective: clinically same Objective - Vital Signs/Intake and Output Vital Signs (last 24 hours): Temp Pulse Resp BP Pulse Ox 97.0 F L 92 H 15 91/56 L 100 06/03/16 08:00 06/03/16 10:00 06/03/16 10:00 06/03/16 10:00 06/03/16 10:00 Intake and Output: 06/03/16 06/03/16 06:59 18:59 Intake Total 901 40 Output Total 485 140 Balance 416 -100 - Medications Medications: Current Medications Brimonidine Tartrate (Alphagan 0.2% Opht) 0 ml OU TID LASHA Last Admin: 06/03/16 09:40 Dose: 1 drop Dorzolamide HCl (Trusopt) 0 ml OU TID [facility] Last Admin: 06/03/16 09:40 Dose: 1 drop Pantoprazole Sodium 80 mg/ (Sodium Chloride) 100 mls @ 10 mls/hr IV .Q10H LASHA PRN Reason: 8 MG/HR Last Admin: 06/03/16 10:09 Dose: 10 mls/hr Sodium Phosphate 15 mmole/ (Sodium Chloride) 255 mls @ 50 mls/hr IVPB .Q5H6M ONE Stop: 06/03/16 15:29 Insulin Aspart (Novolog) 0 unit SC ACHS [facility]ASHA PRN Reason: Protocol Last Admin: 06/03/16 07:42 Dose: Not Given Latanoprost (Xalatan Opht) 0 ml OU HS [facility] Last Admin: 06/02/16 21:26 Dose: 2.5 ml Nystatin (Mycostatin Cream) 0 ea TOP TID [facility] Last Admin: 06/03/16 09:40 Dose: 1 applic Potassium Phos/Sodium Phos (Neutra-Phos) 1 pkt PO TIDCC [facility] Last Admin: 06/03/16 07:42 Dose: Not Given Tamsulosin HCl (Flomax) 0.4 mg PO DAILY [facility] Last Admin: 06/02/16 09:36 Dose: 0.4 mg - Labs Labs: 06/03/16 04:53 06/03/16 04:53 PT 12.8 SECONDS (9.7-12.2) H 06/02/16 09:21 INR 1.2 06/02/16 09:21 APTT 31 SECONDS (21-34) 05/28/16 06:30 - Constitutional Appears: Well - Head Exam Head Exam: ATRAUMATIC, NORMAL INSPECTION, NORMOCEPHALIC - Eye Exam Eye Exam: EOMI, Normal appearance, PERRL Pupil Exam: NORMAL ACCOMODATION, PERRL - ENT Exam ENT Exam: Mucous Membranes Moist, Normal Exam - Neck Exam Neck Exam: Full ROM, Normal Inspection. absent: Lymphadenopathy - Respiratory Exam Respiratory Exam: Decreased Breath Sounds - Cardiovascular Exam Cardiovascular Exam: REGULAR RHYTHM, +S1, +S2 - GI/Abdominal Exam GI & Abdominal Exam: Soft, Diminished Bowel Sounds - Rectal Exam Rectal Exam: Deferred Assessment and Plan (1) Acute renal failure Status: Acute (2) Anemia Status: Acute (3) BPH (benign prostatic hyperplasia) Status: Acute (4) Bilateral edema of lower extremity Status: Acute (5) DVT prophylaxis Status: Acute (6) Dry gangrene Status: Acute (7) Gastrointestinal hemorrhage Status: Acute (8) Hypochromic microcytic anemia Status: Acute (9) Hypovolemic shock Status: Acute (10) Memory difficulty Status: Acute (11) Paresthesia of both lower extremities Status: Acute (12) Pneumonia Status: Acute (13) CHF (congestive heart failure) Status: Chronic (14) Diabetes mellitus Status: Chronic - Assessment and Plan (Free Text) Plan: f/u with GI f/u with ID f/u with shuttle fitting supervisor f/u with pulmology continue monitor H/H protonix Imipenam/Cilastatin Novolog
--- NOTE | 2016-06-03 11:25 | CP.PCM.PN ---
Subjective - Date & Time of Evaluation Date of Evaluation: 06/03/16 Time of Evaluation: 11:24 - Subjective Subjective: Events reviewed back in ICU Objective - Vital Signs/Intake and Output Vital Signs (last 24 hours): Temp Pulse Resp BP Pulse Ox 97.0 F L 92 H 15 91/56 L 100 06/03/16 08:00 06/03/16 10:00 06/03/16 10:00 06/03/16 10:00 06/03/16 10:00 Intake and Output: 06/03/16 06/03/16 06:59 18:59 Intake Total 901 40 Output Total 485 170 Balance 416 -130 - Medications Medications: Current Medications Brimonidine Tartrate (Alphagan 0.2% Opht) 0 ml OU TID [facility]ASHA Last Admin: 06/03/16 09:40 Dose: 1 drop Dorzolamide HCl (Trusopt) 0 ml OU TID [facility] Last Admin: 06/03/16 09:40 Dose: 1 drop Pantoprazole Sodium 80 mg/ (Sodium Chloride) 100 mls @ 10 mls/hr IV .Q10H [facility]HA PRN Reason: 8 MG/HR Last Admin: 06/03/16 10:09 Dose: 10 mls/hr Sodium Phosphate 15 mmole/ (Sodium Chloride) 255 mls @ 50 mls/hr IVPB .Q5H6M ONE Stop: 06/03/16 15:29 Insulin Aspart (Novolog) 0 unit SC ACHS [facility]AS[facility] PRN Reason: Protocol Last Admin: 06/03/16 07:42 Dose: Not Given Latanoprost (Xalatan Opht) 0 ml OU HS [facility] Last Admin: 06/02/16 21:26 Dose: 2.5 ml Nystatin (Mycostatin Cream) 0 ea TOP TID [facility] Last Admin: 06/03/16 09:40 Dose: 1 applic Potassium Phos/Sodium Phos (Neutra-Phos) 1 pkt PO TIDCC [facility] Last Admin: 06/03/16 07:42 Dose: Not Given Tamsulosin HCl (Flomax) 0.4 mg PO DAILY [facility] Last Admin: 06/02/16 09:36 Dose: 0.4 mg - Labs Labs: 06/03/16 04:53 06/03/16 04:53 PT 12.8 SECONDS (9.7-12.2) H 06/02/16 09:21 INR 1.2 06/02/16 09:21 APTT 31 SECONDS (21-34) 05/28/16 06:30 - Constitutional Appears: Toxic, Confused, Cachectic, Chronically Ill - Respiratory Exam Respiratory Exam: Clear to Ausculation Bilateral, NORMAL BREATHING PATTERN - Cardiovascular Exam Cardiovascular Exam: Irregular Rhythm, RRR, +S1, +S2. absent: JVD - GI/Abdominal Exam GI & Abdominal Exam: absent: Organomegaly Assessment and Plan - Assessment and Plan (Free Text) Assessment: 85 y/o with Chronic compensated Mod LV systolic dysfunction, mild MR, Mod , distal septal and anterior akinesia due to chronic CAD s/p CABG in 2012. * Now with worsening Acute blood loss anemia * EKG: RBBB, LAFB, NSR, no acute changes Refractory acute blood loss anemia suspicious for peptic ulcer disease; Continue PRBC transfusion support; GI workup is pending CADIAC: * Hx of known mild-mod LV dysfunction EF 35-40% due to ischemic cardiomyopathy * Euvolemic at present * No active cardiac complaints * Lower extrem edema is improved: * CKD stage 3A chronic 1. Suggest optimize medical therapy for CAD and CHF; once anemia resolves. ECHO done 04/2016 and reviewed by me: LV function is mild-MOD around 40% with mid to distal septum akinesia c/w with known hx of CAD Aortic valve opens but with reduced excursion and a mean gradient of 22mmHg, max jet velocity of 3m/s and a dimensionless index of .31 c/w moderate aortic stenosis: This should be closely followed as outpatient. His volume status is improved with echo showing grade 1 diastolic dysfunction with normal LAP. RV function is low-normal and PASP is upper normal at 32mmHg. Mild MR, Mild AI and Mild TR noted. Cont Rx and Recc per GI DVT prophylaxis
--- NOTE | 2016-06-03 15:33 | CP.CCUPN ---
<Marina Pinto - Last Filed: 06/03/16 16:02> CCU Objective - Vital Signs / Intake & Output Vital Signs (Last 4 hours): Vital Signs Temp Pulse Resp BP Pulse Ox 06/03/16 15:00 74 16 123/70 100 06/03/16 14:30 73 16 111/70 100 06/03/16 14:00 81 15 118/65 100 06/03/16 13:30 71 16 128/66 100 06/03/16 13:00 70 16 125/65 100 06/03/16 12:30 72 18 106/64 100 06/03/16 12:15 79 16 104/61 99 06/03/16 12:00 96.9 F L 81 18 92/61 L 100 Intake and Output (Last 8hrs): Intake & Output 06/03/16 06/03/16 06/03/16 06:59 14:59 22:59 Intake Total 80 565.0 72.5 Output Total 335 260 30 Balance -255 305.0 42.5 Weight 156 lb 11.979 oz Intake: IV 150 Intake, IV Amount 80 295.0 72.5 Right Distal Port Forearm 225.0 62.5 Right Proximal Port 80 70 10 Forearm Oral 120 Output: Urine 335 260 30 Urethral (Cardenas) 335 260 30 Other: # Bowel Movements 1 - Medications Active Medications: Active Medications Generic Name Dose Route Start Last Admin Trade Name Freq PRN Reason Stop Dose Admin Brimonidine Tartrate 0 ml 05/22/16 14:00 06/03/16 14:00 Alphagan 0.2% Opht OU 1 drop TID LASHA Administration Dorzolamide HCl 0 ml 05/22/16 14:00 06/03/16 13:59 Trusopt OU 1 drop TID LASHA Administration Pantoprazole Sodium 80 mg/ 100 mls @ 10 mls/hr 06/02/16 13:15 06/03/16 10:09 Sodium Chloride IV 10 mls/hr .Q10H LASHA Administration 8 MG/HR Insulin Aspart 0 unit 05/26/16 22:00 06/03/16 12:07 Novolog SC 2 unit ACHS LASHA Administration Protocol Latanoprost 0 ml 05/22/16 22:00 06/02/16 21:26 Xalatan Opht OU 2.5 ml HS LASHA Administration Nystatin 0 ea 05/22/16 10:15 06/03/16 13:59 Mycostatin Cream TOP 1 applic TID LASHA Administration Polyethylene Glycol/Electrolytes 4,000 ml 06/03/16 16:30 Golytely PO 06/03/16 16:31 ONCE ONE Potassium Phos/Sodium Phos 1 pkt 06/01/16 18:00 06/03/16 12:07 Neutra-Phos PO Not Given TIDCC LASHA Tamsulosin HCl 0.4 mg 05/22/16 10:00 06/03/16 14:01 Flomax PO 0.4 mg DAILY LASHA Administration - Patient Studies Lab Studies: Microbiology Studies 06/02/16 14:34 MRSA Culture (Admit) - Final Naris MRSA DETECTED Lab Studies 06/03/16 06/03/16 06/03/16 Range/Units 11:46 07:21 04:53 WBC 11.7 H (4.8-10.8) K/uL RBC 3.14 L (4.40-5.90) Mil/uL Hgb 9.0 L (12.0-18.0) g/dL Hct 27.4 L (35.0-51.0) % MCV 87.1 (80.0-94.0) fL MCH 28.6 (27.0-31.0) pg MCHC 32.9 L (33.0-37.0) g/dL RDW 18.0 H (11.5-14.5) % Plt Count 91 L (130-400) K/uL MPV 8.5 (7.2-11.7) fL Neut % (Auto) 73.5 (50.0-75.0) % Lymph % (Auto) 19.2 L (20.0-40.0) % Davidson % (Auto) 5.9 (0.0-10.0) % Eos % (Auto) 0.9 (0.0-4.0) % Baso % (Auto) 0.5 (0.0-2.0) % Neut # 8.6 H (1.8-7.0) K/uL Lymph # 2.2 (1.0-4.3) K/uL Davidson # 0.7 (0.0-0.8) K/uL Eos # 0.1 (0.0-0.7) K/uL Baso # 0.1 (0.0-0.2) K/uL Sodium 144 (132-148) mmol/L Potassium 3.8 (3.6-5.2) mmol/L Chloride 121 H (98-107) mmol/L Carbon Dioxide 16 L (22-30) mmol/L Anion Gap 11 (10-20) BUN 15 (9-20) mg/dL Creatinine 1.3 (0.8-1.5) MG/DL Est GFR ( Amer) > 60 Est GFR (Non-Af Amer) 53 POC Glucose (mg/dL) 162 H 147 H (65-110) mg/dL Random Glucose 129 H (75-110) mg/dL Calcium 7.3 L (8.6-10.4) mg/dl Phosphorus 1.9 L (2.5-4.5) mg/dL Magnesium 1.7 (1.6-2.3) mg/dL Total Bilirubin 0.4 (0.2-1.3) mg/dL AST 13 L (17-59) U/L ALT 23 (21-72) U/L Alkaline Phosphatase 48 (38-126) U/L Total Protein 4.5 L (6.3-8.3) g/dL Albumin 1.7 L (3.5-5.0) g/dL Globulin 2.8 (2.2-3.9) gm/dL Albumin/Globulin Ratio 0.6 L (1.0-2.1) Lipase (23-300) U/L Blood Type Antibody Screen 06/02/16 06/02/16 06/02/16 Range/Units 22:35 21:14 16:21 WBC 11.1 H (4.8-10.8) K/uL RBC 3.10 L (4.40-5.90) Mil/uL Hgb 8.8 L D (12.0-18.0) g/dL Hct 27.2 L (35.0-51.0) % MCV 87.7 (80.0-94.0) fL MCH 28.5 (27.0-31.0) pg MCHC 32.5 L (33.0-37.0) g/dL RDW 17.8 H (11.5-14.5) % Plt Count 94 L (130-400) K/uL MPV 8.5 (7.2-11.7) fL Neut % (Auto) 70.5 (50.0-75.0) % Lymph % (Auto) 22.1 (20.0-40.0) % Davidson % (Auto) 6.3 (0.0-10.0) % Eos % (Auto) 0.8 (0.0-4.0) % Baso % (Auto) 0.3 (0.0-2.0) % Neut # 7.8 H (1.8-7.0) K/uL Lymph # 2.5 (1.0-4.3) K/uL Davidson # 0.7 (0.0-0.8) K/uL Eos # 0.1 (0.0-0.7) K/uL Baso # 0.0 (0.0-0.2) K/uL Sodium (132-148) mmol/L Potassium (3.6-5.2) mmol/L Chloride (98-107) mmol/L Carbon Dioxide (22-30) mmol/L Anion Gap (10-20) BUN (9-20) mg/dL Creatinine (0.8-1.5) MG/DL Est GFR ( Amer) Est GFR (Non-Af Amer) POC Glucose (mg/dL) 98 168 H (65-110) mg/dL Random Glucose (75-110) mg/dL Calcium (8.6-10.4) mg/dl Phosphorus (2.5-4.5) mg/dL Magnesium (1.6-2.3) mg/dL Total Bilirubin (0.2-1.3) mg/dL AST (17-59) U/L ALT (21-72) U/L Alkaline Phosphatase (38-126) U/L Total Protein (6.3-8.3) g/dL Albumin (3.5-5.0) g/dL Globulin (2.2-3.9) gm/dL Albumin/Globulin Ratio (1.0-2.1) Lipase 105 (23-300) U/L Blood Type Antibody Screen 06/02/16 Range/Units 11:30 WBC (4.8-10.8) K/uL RBC (4.40-5.90) Mil/uL Hgb (12.0-18.0) g/dL Hct (35.0-51.0) % MCV (80.0-94.0) fL MCH (27.0-31.0) pg MCHC (33.0-37.0) g/dL RDW (11.5-14.5) % Plt Count (130-400) K/uL MPV (7.2-11.7) fL Neut % (Auto) (50.0-75.0) % Lymph % (Auto) (20.0-40.0) % Davidson % (Auto) (0.0-10.0) % Eos % (Auto) (0.0-4.0) % Baso % (Auto) (0.0-2.0) % Neut # (1.8-7.0) K/uL Lymph # (1.0-4.3) K/uL Davidson # (0.0-0.8) K/uL Eos # (0.0-0.7) K/uL Baso # (0.0-0.2) K/uL Sodium (132-148) mmol/L Potassium (3.6-5.2) mmol/L Chloride (98-107) mmol/L Carbon Dioxide (22-30) mmol/L Anion Gap (10-20) BUN (9-20) mg/dL Creatinine (0.8-1.5) MG/DL Est GFR ( Amer) Est GFR (Non-Af Amer) POC Glucose (mg/dL) (65-110) mg/dL Random Glucose (75-110) mg/dL Calcium (8.6-10.4) mg/dl Phosphorus (2.5-4.5) mg/dL Magnesium (1.6-2.3) mg/dL Total Bilirubin (0.2-1.3) mg/dL AST (17-59) U/L ALT (21-72) U/L Alkaline Phosphatase (38-126) U/L Total Protein (6.3-8.3) g/dL Albumin (3.5-5.0) g/dL Globulin (2.2-3.9) gm/dL Albumin/Globulin Ratio (1.0-2.1) Lipase (23-300) U/L Blood Type O POSITIVE Antibody Screen Negative Laboratory Results - last 24 hr 03/27/17 03/27/17 03/27/17 11:30 16:21 21:14 WBC RBC Hgb Hct MCV MCH MCHC RDW Plt Count MPV Neut % (Auto) Lymph % (Auto) Davidson % (Auto) Eos % (Auto) Baso % (Auto) Neut # Lymph # Davidson # Eos # Baso # Sodium Potassium Chloride Carbon Dioxide Anion Gap BUN Creatinine Est GFR ( Amer) Est GFR (Non-Af Amer) POC Glucose (mg/dL) 168 H 98 Random Glucose Calcium Phosphorus Magnesium Total Bilirubin AST ALT Alkaline Phosphatase Total Protein Albumin Globulin Albumin/Globulin Ratio Lipase Blood Type O POSITIVE Antibody Screen Negative 06/02/16 06/03/16 06/03/16 22:35 04:53 07:21 WBC 11.1 H 11.7 H RBC 3.10 L 3.14 L Hgb 8.8 L D 9.0 L Hct 27.2 L 27.4 L MCV 87.7 87.1 MCH 28.5 28.6 MCHC 32.5 L 32.9 L RDW 17.8 H 18.0 H Plt Count 94 L 91 L MPV 8.5 8.5 Neut % (Auto) 70.5 73.5 Lymph % (Auto) 22.1 19.2 L Davidson % (Auto) 6.3 5.9 Eos % (Auto) 0.8 0.9 Baso % (Auto) 0.3 0.5 Neut # 7.8 H 8.6 H Lymph # 2.5 2.2 Davidson # 0.7 0.7 Eos # 0.1 0.1 Baso # 0.0 0.1 Sodium 144 Potassium 3.8 Chloride 121 H Carbon Dioxide 16 L Anion Gap 11 BUN 15 Creatinine 1.3 Est GFR ( Amer) > 60 Est GFR (Non-Af Amer) 53 POC Glucose (mg/dL) 147 H Random Glucose 129 H Calcium 7.3 L Phosphorus 1.9 L Magnesium 1.7 Total Bilirubin 0.4 AST 13 L ALT 23 Alkaline Phosphatase 48 Total Protein 4.5 L Albumin 1.7 L Globulin 2.8 Albumin/Globulin Ratio 0.6 L Lipase 105 Blood Type Antibody Screen 06/03/16 11:46 WBC RBC Hgb Hct MCV MCH MCHC RDW Plt Count MPV Neut % (Auto) Lymph % (Auto) Davidson % (Auto) Eos % (Auto) Baso % (Auto) Neut # Lymph # Davidson # Eos # Baso # Sodium Potassium Chloride Carbon Dioxide Anion Gap BUN Creatinine Est GFR ( Amer) Est GFR (Non-Af Amer) POC Glucose (mg/dL) 162 H Random Glucose Calcium Phosphorus Magnesium Total Bilirubin AST ALT Alkaline Phosphatase Total Protein Albumin Globulin Albumin/Globulin Ratio Lipase Blood Type Antibody Screen Critical Care Progress Note - Nutrition Nutrition: Nutrition Category Date Time Status Liquid Diet [DIET] Diets 06/03/16 Lunch Active NPO Diet [DIET] Diets 06/04/16 Breakfast Active Attending/Attestation - Attestation I have personally seen and examined this patient.: Yes I have fully participated in the care of the patient.: Yes I have reviewed all pertinent clinical information: Yes Notes (Text): 06/03/16 15:59 Patient seen and examined in the morning. No drop of Hb. Underwent EGD today with push enteroscopy, no acute bleed, but had a melanotic movement after the EGD. Findings in today's EGD: marah esophagitis (started on fluconazole), duodenal ulcer, no bleed, gastritis. Will undergo colonoscopy tomorrow to assess AV malformation. Maintain hb above 8.5 given and CAD. Replace electrolytes IV, Ph 1.9, K 3.8, Mg 1.7 <Supa Mclean - Last Filed: 06/03/16 16:44> CCU Subjective - Physician Review Subjective (Free Text): 05/23/16 18:00 Patient seen at beside with no acute issues. Patient had upper GI endoscopy today. Patient a bit lethargic afterwards with recommendations made.for diet advancement to clears once with improved mental status. ROS could not be obtained at the time due to somnolence. 05/26/16 14:47 Pt seen and examined in no acute distress. No significant events overnight per nursing. Patient somnolent at time of initial evaluation. Family present later on bedside. A ROS could not be obtained at this time due to somnolence. 05/27/16 07:32 Pt seen and examined in no acute distress. Patient more alert today and vocally responsive. Patient had an episode of melena this morning per nursing . Patient tolerating clears. Patient medically stable for transfer to telemetry floor. 06/03/16 15:32 Pt seen and examined with no acute events overnight per nursing. Patient had push enteroscopy today. He had large BM with melena afterwards. No complaints of headaches, subjective fevers or chills, nausea, vomiting, constipation, chest pain or palpitations at this time. CCU Objective - Vital Signs / Intake & Output Vital Signs (Last 4 hours): Vital Signs Temp Pulse Resp BP Pulse Ox 06/03/16 14:30 73 16 111/70 100 06/03/16 14:00 81 15 118/65 100 06/03/16 13:30 71 16 128/66 100 06/03/16 13:00 70 16 125/65 100 06/03/16 12:30 72 18 106/64 100 06/03/16 12:15 79 16 104/61 99 06/03/16 12:00 96.9 F L 81 18 92/61 L 100 06/03/16 11:45 97.0 F L 80 17 97/58 L 99 Intake and Output (Last 8hrs): Intake & Output 06/03/16 06/03/16 06/03/16 06:59 14:59 22:59 Intake Total 80 565.0 Output Total 335 260 Balance -255 305.0 Weight 156 lb 11.979 oz Intake: IV 150 Intake, IV Amount 80 295.0 Right Distal Port Forearm 225.0 Right Proximal Port 80 70 Forearm Oral 120 Output: Urine 335 260 Urethral (Cardenas) 335 260 Other: # Bowel Movements 1 - Physical Exam Head: Positive for: Atraumatic, Normocephalic Pupils: Positive for: PERRL Extroacular Muscles: Positive for: EOMI Conjunctiva: Positive for: Normal Mouth: Positive for: Moist Mucous Membranes Neck: Positive for: Normal Range of Motion Respiratory/Chest: Positive for: Clear to Auscultation, Good Air Exchange. Negative for: Wheezes Cardiovascular: Positive for: Normal S1, S2 Abdomen: Positive for: Tenderness, Normal Bowel Sounds. Negative for: Peritoneal Signs Back: Positive for: Normal Inspection Upper Extremity: Positive for: Normal Inspection Lower Extremity: Positive for: Normal Inspection Neurological: Positive for: CN II-XII Intact Skin: Positive for: Warm, Dry Psychiatric: Positive for: Lethargic - Medications Active Medications: Active Medications Generic Name Dose Route Start Last Admin Trade Name Freq PRN Reason Stop Dose Admin Brimonidine Tartrate 0 ml 05/22/16 14:00 06/03/16 14:00 Alphagan 0.2% Opht OU 1 drop TID LASHA Administration Dorzolamide HCl 0 ml 05/22/16 14:00 06/03/16 13:59 Trusopt OU 1 drop TID LASHA Administration Pantoprazole Sodium 80 mg/ 100 mls @ 10 mls/hr 06/02/16 13:15 06/03/16 10:09 Sodium Chloride IV 10 mls/hr .Q10H LASHA Administration 8 MG/HR Insulin Aspart 0 unit 05/26/16 22:00 06/03/16 12:07 Novolog SC 2 unit ACHS LASHA Administration Protocol Latanoprost 0 ml 05/22/16 22:00 06/02/16 21:26 Xalatan Opht OU 2.5 ml HS LASHA Administration Nystatin 0 ea 05/22/16 10:15 06/03/16 13:59 Mycostatin Cream TOP 1 applic TID LASHA Administration Polyethylene Glycol/Electrolytes 4,000 ml 06/03/16 16:30 Golytely PO 06/03/16 16:31 ONCE ONE Potassium Phos/Sodium Phos 1 pkt 06/01/16 18:00 06/03/16 12:07 Neutra-Phos PO Not Given TIDCC LASHA Tamsulosin HCl 0.4 mg 05/22/16 10:00 06/03/16 14:01 Flomax PO 0.4 mg DAILY LASHA Administration - Patient Studies Lab Studies: Microbiology Studies 06/02/16 14:34 MRSA Culture (Admit) - Final Naris MRSA DETECTED Lab Studies 06/03/16 06/03/16 06/03/16 Range/Units 11:46 07:21 04:53 WBC 11.7 H (4.8-10.8) K/uL RBC 3.14 L (4.40-5.90) Mil/uL Hgb 9.0 L (12.0-18.0) g/dL Hct 27.4 L (35.0-51.0) % MCV 87.1 (80.0-94.0) fL MCH 28.6 (27.0-31.0) pg MCHC 32.9 L (33.0-37.0) g/dL RDW 18.0 H (11.5-14.5) % Plt Count 91 L (130-400) K/uL MPV 8.5 (7.2-11.7) fL Neut % (Auto) 73.5 (50.0-75.0) % Lymph % (Auto) 19.2 L (20.0-40.0) % Davidson % (Auto) 5.9 (0.0-10.0) % Eos % (Auto) 0.9 (0.0-4.0) % Baso % (Auto) 0.5 (0.0-2.0) % Neut # 8.6 H (1.8-7.0) K/uL Lymph # 2.2 (1.0-4.3) K/uL Davidson # 0.7 (0.0-0.8) K/uL Eos # 0.1 (0.0-0.7) K/uL Baso # 0.1 (0.0-0.2) K/uL Sodium 144 (132-148) mmol/L Potassium 3.8 (3.6-5.2) mmol/L Chloride 121 H (98-107) mmol/L Carbon Dioxide 16 L (22-30) mmol/L Anion Gap 11 (10-20) BUN 15 (9-20) mg/dL Creatinine 1.3 (0.8-1.5) MG/DL Est GFR ( Amer) > 60 Est GFR (Non-Af Amer) 53 POC Glucose (mg/dL) 162 H 147 H (65-110) mg/dL Random Glucose 129 H (75-110) mg/dL Calcium 7.3 L (8.6-10.4) mg/dl Phosphorus 1.9 L (2.5-4.5) mg/dL Magnesium 1.7 (1.6-2.3) mg/dL Total Bilirubin 0.4 (0.2-1.3) mg/dL AST 13 L (17-59) U/L ALT 23 (21-72) U/L Alkaline Phosphatase 48 (38-126) U/L Total Protein 4.5 L (6.3-8.3) g/dL Albumin 1.7 L (3.5-5.0) g/dL Globulin 2.8 (2.2-3.9) gm/dL Albumin/Globulin Ratio 0.6 L (1.0-2.1) Lipase (23-300) U/L Blood Type Antibody Screen 06/02/16 06/02/16 06/02/16 Range/Units 22:35 21:14 16:21 WBC 11.1 H (4.8-10.8) K/uL RBC 3.10 L (4.40-5.90) Mil/uL Hgb 8.8 L D (12.0-18.0) g/dL Hct 27.2 L (35.0-51.0) % MCV 87.7 (80.0-94.0) fL MCH 28.5 (27.0-31.0) pg MCHC 32.5 L (33.0-37.0) g/dL RDW 17.8 H (11.5-14.5) % Plt Count 94 L (130-400) K/uL MPV 8.5 (7.2-11.7) fL Neut % (Auto) 70.5 (50.0-75.0) % Lymph % (Auto) 22.1 (20.0-40.0) % Davidson % (Auto) 6.3 (0.0-10.0) % Eos % (Auto) 0.8 (0.0-4.0) % Baso % (Auto) 0.3 (0.0-2.0) % Neut # 7.8 H (1.8-7.0) K/uL Lymph # 2.5 (1.0-4.3) K/uL Davidson # 0.7 (0.0-0.8) K/uL Eos # 0.1 (0.0-0.7) K/uL Baso # 0.0 (0.0-0.2) K/uL Sodium (132-148) mmol/L Potassium (3.6-5.2) mmol/L Chloride (98-107) mmol/L Carbon Dioxide (22-30) mmol/L Anion Gap (10-20) BUN (9-20) mg/dL Creatinine (0.8-1.5) MG/DL Est GFR ( Amer) Est GFR (Non-Af Amer) POC Glucose (mg/dL) 98 168 H (65-110) mg/dL Random Glucose (75-110) mg/dL Calcium (8.6-10.4) mg/dl Phosphorus (2.5-4.5) mg/dL Magnesium (1.6-2.3) mg/dL Total Bilirubin (0.2-1.3) mg/dL AST (17-59) U/L ALT (21-72) U/L Alkaline Phosphatase (38-126) U/L Total Protein (6.3-8.3) g/dL Albumin (3.5-5.0) g/dL Globulin (2.2-3.9) gm/dL Albumin/Globulin Ratio (1.0-2.1) Lipase 105 (23-300) U/L Blood Type Antibody Screen 06/02/16 Range/Units 11:30 WBC (4.8-10.8) K/uL RBC (4.40-5.90) Mil/uL Hgb (12.0-18.0) g/dL Hct (35.0-51.0) % MCV (80.0-94.0) fL MCH (27.0-31.0) pg MCHC (33.0-37.0) g/dL RDW (11.5-14.5) % Plt Count (130-400) K/uL MPV (7.2-11.7) fL Neut % (Auto) (50.0-75.0) % Lymph % (Auto) (20.0-40.0) % Davidson % (Auto) (0.0-10.0) % Eos % (Auto) (0.0-4.0) % Baso % (Auto) (0.0-2.0) % Neut # (1.8-7.0) K/uL Lymph # (1.0-4.3) K/uL Davidson # (0.0-0.8) K/uL Eos # (0.0-0.7) K/uL Baso # (0.0-0.2) K/uL Sodium (132-148) mmol/L Potassium (3.6-5.2) mmol/L Chloride (98-107) mmol/L Carbon Dioxide (22-30) mmol/L Anion Gap (10-20) BUN (9-20) mg/dL Creatinine (0.8-1.5) MG/DL Est GFR ( Amer) Est GFR (Non-Af Amer) POC Glucose (mg/dL) (65-110) mg/dL Random Glucose (75-110) mg/dL Calcium (8.6-10.4) mg/dl Phosphorus (2.5-4.5) mg/dL Magnesium (1.6-2.3) mg/dL Total Bilirubin (0.2-1.3) mg/dL AST (17-59) U/L ALT (21-72) U/L Alkaline Phosphatase (38-126) U/L Total Protein (6.3-8.3) g/dL Albumin (3.5-5.0) g/dL Globulin (2.2-3.9) gm/dL Albumin/Globulin Ratio (1.0-2.1) Lipase (23-300) U/L Blood Type O POSITIVE Antibody Screen Negative Laboratory Results - last 24 hr 06/02/16 06/02/16 06/02/16 11:30 16:21 21:14 WBC RBC Hgb Hct MCV MCH MCHC RDW Plt Count MPV Neut % (Auto) Lymph % (Auto) Davidson % (Auto) Eos % (Auto) Baso % (Auto) Neut # Lymph # Davidson # Eos # Baso # Sodium Potassium Chloride Carbon Dioxide Anion Gap BUN Creatinine Est GFR ( Amer) Est GFR (Non-Af Amer) POC Glucose (mg/dL) 168 H 98 Random Glucose Calcium Phosphorus Magnesium Total Bilirubin AST ALT Alkaline Phosphatase Total Protein Albumin Globulin Albumin/Globulin Ratio Lipase Blood Type O POSITIVE Antibody Screen Negative 06/02/16 06/03/16 06/03/16 22:35 04:53 07:21 WBC 11.1 H 11.7 H RBC 3.10 L 3.14 L Hgb 8.8 L D 9.0 L Hct 27.2 L 27.4 L MCV 87.7 87.1 MCH 28.5 28.6 MCHC 32.5 L 32.9 L RDW 17.8 H 18.0 H Plt Count 94 L 91 L MPV 8.5 8.5 Neut % (Auto) 70.5 73.5 Lymph % (Auto) 22.1 19.2 L Davidson % (Auto) 6.3 5.9 Eos % (Auto) 0.8 0.9 Baso % (Auto) 0.3 0.5 Neut # 7.8 H 8.6 H Lymph # 2.5 2.2 Davidson # 0.7 0.7 Eos # 0.1 0.1 Baso # 0.0 0.1 Sodium 144 Potassium 3.8 Chloride 121 H Carbon Dioxide 16 L Anion Gap 11 BUN 15 Creatinine 1.3 Est GFR ( Amer) > 60 Est GFR (Non-Af Amer) 53 POC Glucose (mg/dL) 147 H Random Glucose 129 H Calcium 7.3 L Phosphorus 1.9 L Magnesium 1.7 Total Bilirubin 0.4 AST 13 L ALT 23 Alkaline Phosphatase 48 Total Protein 4.5 L Albumin 1.7 L Globulin 2.8 Albumin/Globulin Ratio 0.6 L Lipase 105 Blood Type Antibody Screen 06/03/16 11:46 WBC RBC Hgb Hct MCV MCH MCHC RDW Plt Count MPV Neut % (Auto) Lymph % (Auto) Davidson % (Auto) Eos % (Auto) Baso % (Auto) Neut # Lymph # Davidson # Eos # Baso # Sodium Potassium Chloride Carbon Dioxide Anion Gap BUN Creatinine Est GFR ( Amer) Est GFR (Non-Af Amer) POC Glucose (mg/dL) 162 H Random Glucose Calcium Phosphorus Magnesium Total Bilirubin AST ALT Alkaline Phosphatase Total Protein Albumin Globulin Albumin/Globulin Ratio Lipase Blood Type Antibody Screen Fingerstick Blood Sugar Results: 208 Critical Care Progress Note - Nutrition Nutrition: Nutrition Category Date Time Status Liquid Diet [DIET] Diets 06/03/16 Lunch Active NPO Diet [DIET] Diets 06/04/16 Breakfast Active Assessment/Plan - Assessment and Plan (Free Text) Assessment: 85 M with a past medical history of anemia, 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 He was recently discharged for PNA to [facility] center 04/30/16. Prior EGD and colonoscopy in 04/2015 showed gastric AVM, normal colon, and internal hemorrhoids. Status post EGD consistent with esophagitis, gastric ulcers, large duodenal bulb/sweep ulcer with stigmata of a recent bleed indicated by a pigmented spot. s/p epinephrine injection. Patient was previously stable for transfer to floor; however had recurrent episodes of hematochezia with a drop in Hgb to 6.5 prompting transfer back to ICU for critical care monitoring on 06/02. Hgb stable s/p 2 units of PRBC. Patient continues to be monitored in the ICU. Plan: Neuro: Neurochecks q 6 Optho: Latanoprost OU HS LASHA Dorzolamide OU TID LASHA Brimonidine OU TID LASHA Cardio: Maintain SBP >110 Maintain HR 60-100 bpm Pulm: Maintain O2 saturation >92% Tamsulosin 0.4 mg PO daily Endo: Diabetes Sliding scale - Novolog Acchucheck q6 Maintain Euglycemia GI: Diet : Clear Liquid Diet tonight, NPO p 05:30 06/04 06/03 EGD: 2 cm hiatal hernia present. one large non-bleeding ulcer with clean ulcer base Class III found at duodenal bulb spanning duodenal sweep. improved compared to prior examination without any stigmata of recent bleeding. 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 Colonscopy tmrw to assess AV malformation Maintain Hgb above 8.5 given cardiac history : 1746/850 = 896 Monitor I/Os Renal: BUN/Cr: 15/1.3 Monitor I/Os Daily CMP Hypophosphatemia - repleted Replace other electrolytes as needed Heme: H&H 9.0/27.4 (8.8/27.2 > 9.0/27.4) . Stable cont to monitor 06/02 INR 1.2 06/02 PT 12.8 Daily CBC MSK: PT/OT eval ID: sacral wound WBC 11.7 (9.9>11.1>11.7) Daily CBC Nystatin TOP TID LASHA Prophylaxis: DVT: SCDs GI: PPI drip
[2016-06-03] MEDS ORDERED: Fluconazole IV 200mg/100 ml NS 100 ML IVPB ONE (16:00)
[2016-06-03] MEDS ORDERED: Peg-Electrolyte Oral Soln 4L (Golytely) PO ONE (16:30)
[2016-06-03] MEDS: Latanoprost 2.5 ml Opht Soln OU SCH (22:45)
[2016-06-03 23:12] LABS: HEMATOCRIT 28.7 % (35.0-51.0); MEAN CELL VOLUME 87.2 fL (80.0-94.0); MEAN CORPUSCULAR HEMOGLOBIN 28.4 pg (27.0-31.0); MEAN CORPUSCULAR HGB CONC 32.6 g/dL (33.0-37.0); MEAN PLATELET VOLUME 8.7 fL (7.2-11.7); RED CELL DISTRIBUTION WIDTH 18.5 % (11.5-14.5); WHITE BLOOD COUNT 12.3 K/uL (4.8-10.8)
[2016-06-04] MEDS: Pantoprazole 80 MG in Sodium Chloride 0.9% 100 ML IV SCH (05:44)
[2016-06-04 06:02] LABS: BASO % 0.2 % (0.0-2.0); EOS # 0.1 K/uL (0.0-0.7); EOS % 0.9 % (0.0-4.0); HEMATOCRIT 24.8 % (35.0-51.0); LYMPH # 2.1 K/uL (1.0-4.3); LYMPH % 22.4 % (20.0-40.0); MEAN CELL VOLUME 87.7 fL (80.0-94.0); MEAN CORPUSCULAR HEMOGLOBIN 29.1 pg (27.0-31.0); MEAN CORPUSCULAR HGB CONC 33.2 g/dL (33.0-37.0); MEAN PLATELET VOLUME 8.9 fL (7.2-11.7); MONO # 0.5 K/uL (0.0-0.8); MONO % 5.4 % (0.0-10.0); NRBC % 0.1 % (0.0-2.0); RED CELL DISTRIBUTION WIDTH 18.7 % (11.5-14.5); WHITE BLOOD COUNT 9.5 K/uL (4.8-10.8)
[2016-06-04 06:26] LABS: CHLORIDE 116 mmol/L (98-107); POTASSIUM 3.7 mmol/L (3.6-5.2); SODIUM 148 mmol/L (132-148)
[2016-06-04 06:28] LABS: BILIRUBIN,TOTAL 0.4 mg/dL (0.2-1.3); CARBON DIOXIDE 18 mmol/L (22-30); GFR AFRICAN-AMERICAN > 60
[2016-06-04 06:29] LABS: ALB/GLOB RATIO 0.7 (1.0-2.1); ALKALINE PHOSPHATASE 51 U/L (38-126); ALT/SGPT 18 U/L (21-72); AST/SGOT 14 U/L (17-59); BLOOD UREA NITROGEN 14 mg/dL (9-20); CALCIUM 6.8 mg/dl (8.6-10.4); GLUCOSE,RANDOM 76 mg/dL (75-110); MAGNESIUM 1.9 mg/dL (1.6-2.3); PHOSPHOROUS 2.8 mg/dL (2.5-4.5); TOTAL PROTEIN 4.3 g/dL (6.3-8.3)
[2016-06-04] MEDS: Potassium & Sodium Phosphate PO SCH ×3 (07:24→17:16)
[2016-06-04] MEDS: (Novolog) Insulin Aspart, Recombinant 100 u/ml 10 ml vial SC SCH ×4 (07:24→21:36)
[2016-06-04] MEDS: Fluconazole IV 100mg/50 ml NS 50 ML IVPB SCH (09:31)
[2016-06-04] MEDS: Brimonidine 0.2% Opth Sol (5ml) OU SCH ×3 (09:32→17:14)
[2016-06-04] MEDS: Nystatin 100,000 Units/gm Cream(15 gm) TOP SCH ×3 (09:33→17:14)
[2016-06-04] MEDS: Dorzolamide 2% Opht Sol 10ml OU SCH ×3 (09:33→17:14)
--- NOTE | 2016-06-04 10:10 | CP.CCUPN ---
<Supa Mclean - Last Filed: 06/04/16 13:04> CCU Subjective - Physician Review Subjective (Free Text): 05/23/16 18:00 Patient seen at beside with no acute issues. Patient had upper GI endoscopy today. Patient a bit lethargic afterwards with recommendations made.for diet advancement to clears once with improved mental status. ROS could not be obtained at the time due to somnolence. 05/26/16 14:47 Pt seen and examined in no acute distress. No significant events overnight per nursing. Patient somnolent at time of initial evaluation. Family present later on bedside. A ROS could not be obtained at this time due to somnolence. 05/27/16 07:32 Pt seen and examined in no acute distress. Patient more alert today and vocally responsive. Patient had an episode of melena this morning per nursing . Patient tolerating clears. Patient medically stable for transfer to telemetry floor. 06/03/16 15:32 Pt seen and examined with no acute events overnight per nursing. Patient had push enteroscopy today. He had large BM with melena afterwards. No complaints of headaches, subjective fevers or chills, nausea, vomiting, constipation, chest pain or palpitations at this time. 06/04/16 13:04 Pt seen and examined in no acute distress. Patient to have colonoscopy today. Pt resting comfortably in bed with no complaints at this time. He specifically denies weakness, headaches, subjective fevers or chills, nausea, vomiting, constipation, chest pain or palpitations at this time. CCU Objective - Vital Signs / Intake & Output Vital Signs (Last 4 hours): Vital Signs Temp Pulse Resp BP Pulse Ox 06/04/16 09:00 68 10 L 119/60 100 06/04/16 08:00 96.9 F L 68 12 124/66 100 06/04/16 07:00 77 12 119/69 100 06/04/16 06:30 75 14 126/67 100 Intake and Output (Last 8hrs): Intake & Output 06/03/16 06/04/16 06/04/16 22:59 06:59 14:59 Intake Total 3965.0 700 30 Output Total 3050 595 85 Balance 915.0 105 -55 Weight 155 lb 6.814 oz Intake: Intake, IV Amount 305.0 80 30 Right Distal Port Forearm 225.0 Right Proximal Port 80 80 30 Forearm Oral 3660 620 0 Output: Urine 350 295 85 Urethral (Cardenas) 350 295 85 Stool 2700 300 - Physical Exam Head: Positive for: Atraumatic, Normocephalic Pupils: Positive for: PERRL Extroacular Muscles: Positive for: EOMI Conjunctiva: Positive for: Normal Mouth: Positive for: Moist Mucous Membranes Neck: Positive for: Normal Range of Motion Respiratory/Chest: Positive for: Clear to Auscultation, Good Air Exchange. Negative for: Wheezes Cardiovascular: Positive for: Normal S1, S2 Abdomen: Positive for: Tenderness, Normal Bowel Sounds. Negative for: Peritoneal Signs Back: Positive for: Normal Inspection Upper Extremity: Positive for: Normal Inspection Lower Extremity: Positive for: Normal Inspection Neurological: Positive for: CN II-XII Intact Skin: Positive for: Warm, Dry Psychiatric: Positive for: Lethargic - Medications Active Medications: Active Medications Generic Name Dose Route Start Last Admin Trade Name Freq PRN Reason Stop Dose Admin Brimonidine Tartrate 0 ml 05/22/16 14:00 06/04/16 09:32 Alphagan 0.2% Opht OU 1 drop TID LASHA Administration Dorzolamide HCl 0 ml 05/22/16 14:00 06/04/16 09:33 Trusopt OU 1 drop TID LASHA Administration Fluconazole 50 mls @ 100 mls/hr 06/04/16 10:00 06/04/16 09:31 Diflucan Iv 100 Mg/50 Ml Ns IVPB 100 mls/hr DAILY LASHA Administration Insulin Aspart 0 unit 05/26/16 22:00 06/04/16 07:24 Novolog SC Not Given ACHS LASHA Protocol Latanoprost 0 ml 05/22/16 22:00 06/03/16 22:45 Xalatan Opht OU 2.5 ml HS LASHA Administration Nystatin 0 ea 05/22/16 10:15 06/04/16 09:33 Mycostatin Cream TOP 1 applic TID LASHA Administration Potassium Phos/Sodium Phos 1 pkt 06/03/16 18:23 06/04/16 07:24 Neutra-Phos PO 06/11/16 18:01 Not Given TIDCC LASHA Tamsulosin HCl 0.4 mg 05/22/16 10:00 03/29/17 09:28 Flomax PO Not Given DAILY LASHA - Patient Studies Lab Studies: Microbiology Studies 06/02/16 14:34 MRSA Culture (Admit) - Final Naris MRSA DETECTED Lab Studies 06/04/16 06/04/16 06/03/16 Range/Units 07:18 05:55 23:13 WBC 9.5 12.3 H (4.8-10.8) K/uL RBC 2.82 L 3.29 L (4.40-5.90) Mil/uL Hgb 8.2 L 9.4 L (12.0-18.0) g/dL Hct 24.8 L 28.7 L (35.0-51.0) % MCV 87.7 87.2 (80.0-94.0) fL MCH 29.1 28.4 (27.0-31.0) pg MCHC 33.2 32.6 L (33.0-37.0) g/dL RDW 18.7 H 18.5 H (11.5-14.5) % Plt Count 96 L 106 L (130-400) K/uL MPV 8.9 8.7 (7.2-11.7) fL Neut % (Auto) 71.1 (50.0-75.0) % Lymph % (Auto) 22.4 (20.0-40.0) % Marshall % (Auto) 5.4 (0.0-10.0) % Eos % (Auto) 0.9 (0.0-4.0) % Baso % (Auto) 0.2 (0.0-2.0) % Neut # 6.7 (1.8-7.0) K/uL Lymph # 2.1 (1.0-4.3) K/uL Marshall # 0.5 (0.0-0.8) K/uL Eos # 0.1 (0.0-0.7) K/uL Baso # 0.0 (0.0-0.2) K/uL Sodium 148 (132-148) mmol/L Potassium 3.7 (3.6-5.2) mmol/L Chloride 116 H (98-107) mmol/L Carbon Dioxide 18 L (22-30) mmol/L Anion Gap 18 (10-20) BUN 14 (9-20) mg/dL Creatinine 1.3 (0.8-1.5) MG/DL Est GFR ( Amer) > 60 Est GFR (Non-Af Amer) 53 POC Glucose (mg/dL) 101 (65-110) mg/dL Random Glucose 76 (75-110) mg/dL Calcium 6.8 L (8.6-10.4) mg/dl Phosphorus 2.8 (2.5-4.5) mg/dL Magnesium 1.9 (1.6-2.3) mg/dL Total Bilirubin 0.4 (0.2-1.3) mg/dL AST 14 L (17-59) U/L ALT 18 L D (21-72) U/L Alkaline Phosphatase 51 (38-126) U/L Total Protein 4.3 L (6.3-8.3) g/dL Albumin 1.7 L (3.5-5.0) g/dL Globulin 2.6 (2.2-3.9) gm/dL Albumin/Globulin Ratio 0.7 L (1.0-2.1) 06/03/16 06/03/16 06/03/16 Range/Units 21:21 16:11 11:46 WBC (4.8-10.8) K/uL RBC (4.40-5.90) Mil/uL Hgb (12.0-18.0) g/dL Hct (35.0-51.0) % MCV (80.0-94.0) fL MCH (27.0-31.0) pg MCHC (33.0-37.0) g/dL RDW (11.5-14.5) % Plt Count (130-400) K/uL MPV (7.2-11.7) fL Neut % (Auto) (50.0-75.0) % Lymph % (Auto) (20.0-40.0) % Marshall % (Auto) (0.0-10.0) % Eos % (Auto) (0.0-4.0) % Baso % (Auto) (0.0-2.0) % Neut # (1.8-7.0) K/uL Lymph # (1.0-4.3) K/uL Marshall # (0.0-0.8) K/uL Eos # (0.0-0.7) K/uL Baso # (0.0-0.2) K/uL Sodium (132-148) mmol/L Potassium (3.6-5.2) mmol/L Chloride (98-107) mmol/L Carbon Dioxide (22-30) mmol/L Anion Gap (10-20) BUN (9-20) mg/dL Creatinine (0.8-1.5) MG/DL Est GFR ( Amer) Est GFR (Non-Af Amer) POC Glucose (mg/dL) 102 174 H 162 H (65-110) mg/dL Random Glucose (75-110) mg/dL Calcium (8.6-10.4) mg/dl Phosphorus (2.5-4.5) mg/dL Magnesium (1.6-2.3) mg/dL Total Bilirubin (0.2-1.3) mg/dL AST (17-59) U/L ALT (21-72) U/L Alkaline Phosphatase (38-126) U/L Total Protein (6.3-8.3) g/dL Albumin (3.5-5.0) g/dL Globulin (2.2-3.9) gm/dL Albumin/Globulin Ratio (1.0-2.1) Laboratory Results - last 24 hr 06/03/16 06/03/16 06/03/16 11:46 16:11 21:21 WBC RBC Hgb Hct MCV MCH MCHC RDW Plt Count MPV Neut % (Auto) Lymph % (Auto) Marshall % (Auto) Eos % (Auto) Baso % (Auto) Neut # Lymph # Marshall # Eos # Baso # Sodium Potassium Chloride Carbon Dioxide Anion Gap BUN Creatinine Est GFR ( Amer) Est GFR (Non-Af Amer) POC Glucose (mg/dL) 162 H 174 H 102 Random Glucose Calcium Phosphorus Magnesium Total Bilirubin AST ALT Alkaline Phosphatase Total Protein Albumin Globulin Albumin/Globulin Ratio 06/03/16 06/04/16 06/04/16 23:13 05:55 07:18 WBC 12.3 H 9.5 RBC 3.29 L 2.82 L Hgb 9.4 L 8.2 L Hct 28.7 L 24.8 L MCV 87.2 87.7 MCH 28.4 29.1 MCHC 32.6 L 33.2 RDW 18.5 H 18.7 H Plt Count 106 L 96 L MPV 8.7 8.9 Neut % (Auto) 71.1 Lymph % (Auto) 22.4 Marshall % (Auto) 5.4 Eos % (Auto) 0.9 Baso % (Auto) 0.2 Neut # 6.7 Lymph # 2.1 Marshall # 0.5 Eos # 0.1 Baso # 0.0 Sodium 148 Potassium 3.7 Chloride 116 H Carbon Dioxide 18 L Anion Gap 18 BUN 14 Creatinine 1.3 Est GFR ( Amer) > 60 Est GFR (Non-Af Amer) 53 POC Glucose (mg/dL) 101 Random Glucose 76 Calcium 6.8 L Phosphorus 2.8 Magnesium 1.9 Total Bilirubin 0.4 AST 14 L ALT 18 L D Alkaline Phosphatase 51 Total Protein 4.3 L Albumin 1.7 L Globulin 2.6 Albumin/Globulin Ratio 0.7 L Fingerstick Blood Sugar Results: 208 Review of Systems - Review of Systems Review of Systems: see subjective Critical Care Progress Note - Nutrition Nutrition: Nutrition Category Date Time Status NPO Diet [DIET] Diets 06/04/16 Breakfast Active Assessment/Plan - Assessment and Plan (Free Text) Assessment: 85 M with a past medical history of anemia, 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 He was recently discharged for PNA to rehabilitation center 04/30/16. Prior EGD and colonoscopy in 04/2015 showed gastric AVM, normal colon, and internal hemorrhoids. Status post EGD consistent with esophagitis, gastric ulcers, large duodenal bulb/sweep ulcer with stigmata of a recent bleed indicated by a pigmented spot. s/p epinephrine injection. Patient was previously stable for transfer to floor; however had recurrent episodes of hematochezia with a drop in Hgb to 6.5 prompting transfer back to ICU for critical care monitoring on 06/02. Hgb stable s/p 2 units of PRBC. Patient continues to be monitored in the ICU. Plan: Neuro: Neurochecks q 6 Optho: Latanoprost OU HS LASHA Dorzolamide OU TID LASHA Brimonidine OU TID LASHA Cardio: Maintain SBP >110 Maintain HR 60-100 bpm Pulm: Maintain O2 saturation >92% Tamsulosin 0.4 mg PO daily Endo: Diabetes Sliding scale - Novolog Accucheck q6 Maintain Euglycemia GI: Diet : NPO for colonoscopy today- F/U results 06/03 EGD: 2 cm hiatal hernia present. one large non-bleeding ulcer with clean ulcer base Class III found at duodenal bulb spanning duodenal sweep. improved compared to prior examination without any stigmata of recent bleeding. 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 Colonscopy tmrw to assess AV malformation Maintain Hgb above 8.5 given cardiac history : 1746/850 = 896 Monitor I/Os Renal: BUN/Cr: 14/1.3 Monitor I/Os Daily CMP Hypophosphatemia - repleted Replace other electrolytes as needed Heme: H&H Stable. Cont to monitor 06/02 INR 1.2 06/02 PT 12.8 Daily CBC MSK: PT/OT eval ID: sacral wound WBC 11.7 (9.9>11.1>11.7) Daily CBC Nystatin TOP TID LASHA Prophylaxis: DVT: SCDs GI: PPI switched to 40 mg PO BID Disp: Clinically stable for transfer to medical floor <Marina Pinto - Last Filed: 06/04/16 18:44> CCU Objective - Vital Signs / Intake & Output Vital Signs (Last 4 hours): Vital Signs Temp Pulse Resp BP Pulse Ox 06/04/16 16:00 97.4 F L 76 12 93/44 L 100 06/04/16 15:27 98 F 73 15 103/67 96 06/04/16 15:13 97.8 F 87 16 98/57 L 100 06/04/16 14:57 97.8 F 80 12 116/70 100 Intake and Output (Last 8hrs): Intake & Output 06/04/16 06/04/16 06/04/16 06:59 14:59 22:59 Intake Total 700 290 Output Total 595 300 Balance 105 -10 Weight 155 lb 6.814 oz Intake: IV 250 Intake, IV Amount 80 40 Right Proximal Port 80 40 Forearm Rt forearm #20 0 Oral 620 0 Output: Urine 295 300 Urethral (Cardenas) 295 300 Stool 300 Other: # Bowel Movements 0 - Medications Active Medications: Active Medications Generic Name Dose Route Start Last Admin Trade Name Freq PRN Reason Stop Dose Admin Brimonidine Tartrate 0 ml 05/22/16 14:00 06/04/16 17:14 Alphagan 0.2% Opht OU 1 drop TID LASHA Administration Dorzolamide HCl 0 ml 05/22/16 14:00 06/04/16 17:14 Trusopt OU 1 drop TID LASHA Administration Fluconazole 50 mls @ 100 mls/hr 06/04/16 10:00 06/04/16 09:31 Diflucan Iv 100 Mg/50 Ml Ns IVPB 100 mls/hr DAILY LASHA Administration Insulin Aspart 0 unit 05/26/16 22:00 06/04/16 16:31 Novolog SC Not Given ACHS LASHA Protocol Latanoprost 0 ml 05/22/16 22:00 06/03/16 22:45 Xalatan Opht OU 2.5 ml HS LASHA Administration Nystatin 0 ea 05/22/16 10:15 06/04/16 17:14 Mycostatin Cream TOP 1 applic TID LASHA Administration Pantoprazole Sodium 40 mg 06/04/16 18:00 06/04/16 17:12 Protonix Ec Tab PO 40 mg BID LASHA Administration Potassium Phos/Sodium Phos 1 pkt 06/03/16 18:23 06/04/16 17:16 Neutra-Phos PO 06/11/16 18:01 1 pkt TIDCC LASHA Administration Tamsulosin HCl 0.4 mg 05/22/16 10:00 06/04/16 09:28 Flomax PO Not Given DAILY LASHA - Patient Studies Lab Studies: Lab Studies 06/04/16 06/04/16 06/04/16 Range/Units 16:12 11:51 07:18 WBC (4.8-10.8) K/uL RBC (4.40-5.90) Mil/uL Hgb (12.0-18.0) g/dL Hct (35.0-51.0) % MCV (80.0-94.0) fL MCH (27.0-31.0) pg MCHC (33.0-37.0) g/dL RDW (11.5-14.5) % Plt Count (130-400) K/uL MPV (7.2-11.7) fL Neut % (Auto) (50.0-75.0) % Lymph % (Auto) (20.0-40.0) % Marshall % (Auto) (0.0-10.0) % Eos % (Auto) (0.0-4.0) % Baso % (Auto) (0.0-2.0) % Neut # (1.8-7.0) K/uL Lymph # (1.0-4.3) K/uL Marshall # (0.0-0.8) K/uL Eos # (0.0-0.7) K/uL Baso # (0.0-0.2) K/uL Sodium (132-148) mmol/L Potassium (3.6-5.2) mmol/L Chloride (98-107) mmol/L Carbon Dioxide (22-30) mmol/L Anion Gap (10-20) BUN (9-20) mg/dL Creatinine (0.8-1.5) MG/DL Est GFR ( Amer) Est GFR (Non-Af Amer) POC Glucose (mg/dL) 93 96 101 (65-110) mg/dL Random Glucose (75-110) mg/dL Calcium (8.6-10.4) mg/dl Phosphorus (2.5-4.5) mg/dL Magnesium (1.6-2.3) mg/dL Total Bilirubin (0.2-1.3) mg/dL AST (17-59) U/L ALT (21-72) U/L Alkaline Phosphatase (38-126) U/L Total Protein (6.3-8.3) g/dL Albumin (3.5-5.0) g/dL Globulin (2.2-3.9) gm/dL Albumin/Globulin Ratio (1.0-2.1) 06/04/16 06/03/16 06/03/16 Range/Units 05:55 23:13 21:21 WBC 9.5 12.3 H (4.8-10.8) K/uL RBC 2.82 L 3.29 L (4.40-5.90) Mil/uL Hgb 8.2 L 9.4 L (12.0-18.0) g/dL Hct 24.8 L 28.7 L (35.0-51.0) % MCV 87.7 87.2 (80.0-94.0) fL MCH 29.1 28.4 (27.0-31.0) pg MCHC 33.2 32.6 L (33.0-37.0) g/dL RDW 18.7 H 18.5 H (11.5-14.5) % Plt Count 96 L 106 L (130-400) K/uL MPV 8.9 8.7 (7.2-11.7) fL Neut % (Auto) 71.1 (50.0-75.0) % Lymph % (Auto) 22.4 (20.0-40.0) % Marshall % (Auto) 5.4 (0.0-10.0) % Eos % (Auto) 0.9 (0.0-4.0) % Baso % (Auto) 0.2 (0.0-2.0) % Neut # 6.7 (1.8-7.0) K/uL Lymph # 2.1 (1.0-4.3) K/uL Marshall # 0.5 (0.0-0.8) K/uL Eos # 0.1 (0.0-0.7) K/uL Baso # 0.0 (0.0-0.2) K/uL Sodium 148 (132-148) mmol/L Potassium 3.7 (3.6-5.2) mmol/L Chloride 116 H (98-107) mmol/L Carbon Dioxide 18 L (22-30) mmol/L Anion Gap 18 (10-20) BUN 14 (9-20) mg/dL Creatinine 1.3 (0.8-1.5) MG/DL Est GFR ( Amer) > 60 Est GFR (Non-Af Amer) 53 POC Glucose (mg/dL) 102 (65-110) mg/dL Random Glucose 76 (75-110) mg/dL Calcium 6.8 L (8.6-10.4) mg/dl Phosphorus 2.8 (2.5-4.5) mg/dL Magnesium 1.9 (1.6-2.3) mg/dL Total Bilirubin 0.4 (0.2-1.3) mg/dL AST 14 L (17-59) U/L ALT 18 L D (21-72) U/L Alkaline Phosphatase 51 (38-126) U/L Total Protein 4.3 L (6.3-8.3) g/dL Albumin 1.7 L (3.5-5.0) g/dL Globulin 2.6 (2.2-3.9) gm/dL Albumin/Globulin Ratio 0.7 L (1.0-2.1) Laboratory Results - last 24 hr 06/03/16 06/03/16 06/04/16 21:21 23:13 05:55 WBC 12.3 H 9.5 RBC 3.29 L 2.82 L Hgb 9.4 L 8.2 L Hct 28.7 L 24.8 L MCV 87.2 87.7 MCH 28.4 29.1 MCHC 32.6 L 33.2 RDW 18.5 H 18.7 H Plt Count 106 L 96 L MPV 8.7 8.9 Neut % (Auto) 71.1 Lymph % (Auto) 22.4 Marshall % (Auto) 5.4 Eos % (Auto) 0.9 Baso % (Auto) 0.2 Neut # 6.7 Lymph # 2.1 Marshall # 0.5 Eos # 0.1 Baso # 0.0 Sodium 148 Potassium 3.7 Chloride 116 H Carbon Dioxide 18 L Anion Gap 18 BUN 14 Creatinine 1.3 Est GFR ( Amer) > 60 Est GFR (Non-Af Amer) 53 POC Glucose (mg/dL) 102 Random Glucose 76 Calcium 6.8 L Phosphorus 2.8 Magnesium 1.9 Total Bilirubin 0.4 AST 14 L ALT 18 L D Alkaline Phosphatase 51 Total Protein 4.3 L Albumin 1.7 L Globulin 2.6 Albumin/Globulin Ratio 0.7 L 06/04/16 06/04/16 06/04/16 07:18 11:51 16:12 WBC RBC Hgb Hct MCV MCH MCHC RDW Plt Count MPV Neut % (Auto) Lymph % (Auto) Marshall % (Auto) Eos % (Auto) Baso % (Auto) Neut # Lymph # Marshall # Eos # Baso # Sodium Potassium Chloride Carbon Dioxide Anion Gap BUN Creatinine Est GFR ( Amer) Est GFR (Non-Af Amer) POC Glucose (mg/dL) 101 96 93 Random Glucose Calcium Phosphorus Magnesium Total Bilirubin AST ALT Alkaline Phosphatase Total Protein Albumin Globulin Albumin/Globulin Ratio Critical Care Progress Note - Nutrition Nutrition: Nutrition Category Date Time Status NPO Diet [DIET] Diets 06/04/16 Breakfast Active Attending/Attestation - Attestation I have personally seen and examined this patient.: Yes I have fully participated in the care of the patient.: Yes I have reviewed all pertinent clinical information: Yes Notes (Text): 06/04/16 18:43 Patient seen and examined. Not tachycardic. BP in the low 100's, high 90's, no tachycardia. Slight dropof Htc. colonosocpy no active bleed. OK for transfer to telemetry.
--- NOTE | 2016-06-04 12:35 | CP.PCM.PN ---
Subjective - Date & Time of Evaluation Date of Evaluation: 06/04/16 Time of Evaluation: 12:33 - Subjective Subjective: Events reviewed. Lethargic Objective - Vital Signs/Intake and Output Vital Signs (last 24 hours): Temp Pulse Resp BP Pulse Ox 96.9 F L 67 14 115/55 L 100 06/04/16 08:00 06/04/16 11:20 06/04/16 11:00 06/04/16 11:00 06/04/16 11:00 Intake and Output: 06/04/16 06/04/16 06:59 18:59 Intake Total 3920 40 Output Total 3485 100 Balance 435 -60 - Medications Medications: Current Medications Brimonidine Tartrate (Alphagan 0.2% Opht) 0 ml OU TID [facility] Last Admin: 06/04/16 09:32 Dose: 1 drop Dorzolamide HCl (Trusopt) 0 ml OU TID [facility] Last Admin: 06/04/16 09:33 Dose: 1 drop Fluconazole (Diflucan Iv 100 Mg/50 Ml Ns) 50 mls @ 100 mls/hr IVPB DAILY [facility] Last Admin: 06/04/16 09:31 Dose: 100 mls/hr Insulin Aspart (Novolog) 0 unit SC ACHS [facility] PRN Reason: Protocol Last Admin: 06/04/16 11:58 Dose: Not Given Latanoprost (Xalatan Opht) 0 ml OU HS [facility] Last Admin: 06/03/16 22:45 Dose: 2.5 ml Nystatin (Mycostatin Cream) 0 ea TOP TID [facility] Last Admin: 06/04/16 09:33 Dose: 1 applic Pantoprazole Sodium (Protonix Ec Tab) 40 mg PO BID [facility] Potassium Phos/Sodium Phos (Neutra-Phos) 1 pkt PO TIDCC [facility] Stop: 06/11/16 18:01 Last Admin: 06/04/16 11:55 Dose: Not Given Tamsulosin HCl (Flomax) 0.4 mg PO DAILY [facility] Last Admin: 06/04/16 09:28 Dose: Not Given - Labs Labs: 06/04/16 05:55 06/04/16 05:55 PT 12.8 SECONDS (9.7-12.2) H 06/02/16 09:21 INR 1.2 06/02/16 09:21 APTT 31 SECONDS (21-34) 05/28/16 06:30 Assessment and Plan - Assessment and Plan (Free Text) Assessment: 85 year old man with acute blood loss anemia from peptic ulcer disease, s/p EGD High dose PPI. Colonscopy today Atrial fibrillation holding anticoagulation due to refractory anemia for CVA prophylaxsis Chronic systolic CHF now stable, he is unable to tolerate cardiomyopathy and coronary artery disease therapy while he is critically ill
[2016-06-04] MEDS ORDERED: Propofol 10 mg/ml Inj (20 ML) ONE (14:26)
[2016-06-04] MEDS ORDERED: Etomidate 20 mg/10ml Inj IV ONE (14:27)
[2016-06-04] MEDS: Pantoprazole 40 mg EC Tab PO SCH (17:12)
--- NOTE | 2016-06-04 18:38 | CP.PCM.PN ---
Subjective - Date & Time of Evaluation Date of Evaluation: 05/28/16 Time of Evaluation: 01:20 - Subjective Subjective: clinically same Objective - Vital Signs/Intake and Output Vital Signs (last 24 hours): Temp Pulse Resp BP Pulse Ox 97.4 F L 76 12 93/44 L 100 06/04/16 16:00 06/04/16 16:00 06/04/16 16:00 06/04/16 16:00 06/04/16 16:00 Intake and Output: 06/04/16 06/04/16 06:59 18:59 Intake Total 3920 290 Output Total 3485 300 Balance 435 -10 - Medications Medications: Current Medications Brimonidine Tartrate (Alphagan 0.2% Opht) 0 ml OU TID [facility] Last Admin: 06/04/16 17:14 Dose: 1 drop Dorzolamide HCl (Trusopt) 0 ml OU TID [facility] Last Admin: 06/04/16 17:14 Dose: 1 drop Fluconazole (Diflucan Iv 100 Mg/50 Ml Ns) 50 mls @ 100 mls/hr IVPB DAILY [facility] Last Admin: 06/04/16 09:31 Dose: 100 mls/hr Insulin Aspart (Novolog) 0 unit SC ACHS [facility] PRN Reason: Protocol Last Admin: 06/04/16 16:31 Dose: Not Given Latanoprost (Xalatan Opht) 0 ml OU HS [facility] Last Admin: 06/03/16 22:45 Dose: 2.5 ml Nystatin (Mycostatin Cream) 0 ea TOP TID [facility] Last Admin: 06/04/16 17:14 Dose: 1 applic Pantoprazole Sodium (Protonix Ec Tab) 40 mg PO BID [facility] Last Admin: 06/04/16 17:12 Dose: 40 mg Potassium Phos/Sodium Phos (Neutra-Phos) 1 pkt PO TIDCC [facility] Stop: 06/11/16 18:01 Last Admin: 06/04/16 17:16 Dose: 1 pkt Tamsulosin HCl (Flomax) 0.4 mg PO DAILY [facility] Last Admin: 06/04/16 09:28 Dose: Not Given - Labs Labs: 06/04/16 05:55 06/04/16 05:55 PT 12.8 SECONDS (9.7-12.2) H 06/02/16 09:21 INR 1.2 06/02/16 09:21 APTT 31 SECONDS (21-34) 05/28/16 06:30 - Constitutional Appears: Well - Head Exam Head Exam: ATRAUMATIC, NORMAL INSPECTION, NORMOCEPHALIC - Eye Exam Eye Exam: EOMI, Normal appearance, PERRL Pupil Exam: NORMAL ACCOMODATION, PERRL - ENT Exam ENT Exam: Mucous Membranes Moist, Normal Exam - Neck Exam Neck Exam: Full ROM, Normal Inspection. absent: Lymphadenopathy - Respiratory Exam Respiratory Exam: Decreased Breath Sounds - Cardiovascular Exam Cardiovascular Exam: REGULAR RHYTHM, +S1, +S2 - GI/Abdominal Exam GI & Abdominal Exam: Soft, Diminished Bowel Sounds - Rectal Exam Rectal Exam: Deferred Assessment and Plan (1) Acute renal failure Status: Acute (2) Anemia Status: Acute (3) BPH (benign prostatic hyperplasia) Status: Acute (4) Bilateral edema of lower extremity Status: Acute (5) DVT prophylaxis Status: Acute (6) Dry gangrene Status: Acute (7) Gastrointestinal hemorrhage Status: Acute (8) Hypochromic microcytic anemia Status: Acute (9) Hypovolemic shock Status: Acute (10) Memory difficulty Status: Acute (11) Paresthesia of both lower extremities Status: Acute (12) Pneumonia Status: Acute (13) CHF (congestive heart failure) Status: Chronic (14) Diabetes mellitus Status: Chronic - Assessment and Plan (Free Text) Plan: f/u with GI f/u with ID f/u with certified income tax preparer f/u with pulmology colonoscopy shows no active bleed continue monitor H/H protonix Imipenam/Cilastatin Novolog
[2016-06-04] MEDS: Latanoprost 2.5 ml Opht Soln OU SCH (21:38)
[2016-06-05 07:40] LABS: BASO % 0.3 % (0.0-2.0); EOS # 0.1 K/uL (0.0-0.7); EOS % 1.4 % (0.0-4.0); HEMATOCRIT 22.2 % (35.0-51.0); LYMPH # 1.6 K/uL (1.0-4.3); LYMPH % 25.4 % (20.0-40.0); MEAN CELL VOLUME 88.1 fL (80.0-94.0); MEAN CORPUSCULAR HEMOGLOBIN 29.3 pg (27.0-31.0); MEAN CORPUSCULAR HGB CONC 33.2 g/dL (33.0-37.0); MEAN PLATELET VOLUME 9.1 fL (7.2-11.7); MONO # 0.4 K/uL (0.0-0.8); MONO % 6.1 % (0.0-10.0); NRBC % 0.1 % (0.0-2.0); RED CELL DISTRIBUTION WIDTH 18.7 % (11.5-14.5); WHITE BLOOD COUNT 6.3 K/uL (4.8-10.8)
[2016-06-05 07:58] LABS: CHLORIDE 115 mmol/L (98-107); POTASSIUM 3.6 mmol/L (3.6-5.2); SODIUM 143 mmol/L (132-148)
[2016-06-05 08:00] LABS: ALB/GLOB RATIO 0.6 (1.0-2.1); ALKALINE PHOSPHATASE 47 U/L (38-126); AST/SGOT 13 U/L (17-59); BILIRUBIN,TOTAL 0.1 mg/dL (0.2-1.3); BLOOD UREA NITROGEN 12 mg/dL (9-20); CARBON DIOXIDE 17 mmol/L (22-30); GFR AFRICAN-AMERICAN > 60; GLUCOSE,RANDOM 85 mg/dL (75-110); TOTAL PROTEIN 4.2 g/dL (6.3-8.3)
[2016-06-05 08:01] LABS: ALT/SGPT 16 U/L (21-72); PHOSPHOROUS 2.4 mg/dL (2.5-4.5)
[2016-06-05] MEDS: Potassium & Sodium Phosphate PO SCH ×3 (08:28→18:32)
--- NOTE | 2016-06-05 08:50 | CP.PCM.PN ---
<Denae Chakraborty - Last Filed: 06/05/16 08:45> Subjective - Date & Time of Evaluation Date of Evaluation: 06/05/16 Time of Evaluation: 08:46 - Subjective Subjective: Gastroenterology Fellow/PGY4 Progress Note Patient mainly notes thirsts and need to drink fluids. Denies abdominal pain. Patient and nursing denies bowel movements, melena, or hematochezia. A 12-point review of systems negative except for as above. Objective - Vital Signs/Intake and Output Vital Signs (last 24 hours): Temp Pulse Resp BP Pulse Ox 97.7 F 70 20 111/64 100 06/05/16 07:45 06/05/16 07:45 06/05/16 07:45 06/05/16 07:45 06/05/16 07:45 - Medications Medications: Current Medications Brimonidine Tartrate (Alphagan 0.2% Opht) 0 ml OU TID [facility] Last Admin: 06/04/16 17:14 Dose: 1 drop Dorzolamide HCl (Trusopt) 0 ml OU TID [facility] Last Admin: 06/04/16 17:14 Dose: 1 drop Fluconazole (Diflucan Iv 100 Mg/50 Ml Ns) 50 mls @ 100 mls/hr IVPB DAILY [facility] Last Admin: 06/04/16 09:31 Dose: 100 mls/hr Insulin Aspart (Novolog) 0 unit SC ACHS [facility] PRN Reason: Protocol Last Admin: 06/04/16 21:36 Dose: Not Given Latanoprost (Xalatan Opht) 0 ml OU HS [facility] Last Admin: 06/04/16 21:38 Dose: 2.5 ml Nystatin (Mycostatin Cream) 0 ea TOP TID [facility] Last Admin: 06/04/16 17:14 Dose: 1 applic Pantoprazole Sodium (Protonix Ec Tab) 40 mg PO BID [facility] Last Admin: 06/04/16 17:12 Dose: 40 mg Potassium Phos/Sodium Phos (Neutra-Phos) 1 pkt PO TIDCC [facility] Stop: 06/11/16 18:01 Last Admin: 06/05/16 08:28 Dose: 1 pkt Tamsulosin HCl (Flomax) 0.4 mg PO DAILY [facility] Last Admin: 06/04/16 09:28 Dose: Not Given - Labs Labs: 06/05/16 07:06 06/05/16 07:06 PT 12.8 SECONDS (9.7-12.2) H 06/02/16 09:21 INR 1.2 06/02/16 09:21 APTT 31 SECONDS (21-34) 05/28/16 06:30 - Constitutional Appears: Non-toxic, No Acute Distress - Head Exam Head Exam: ATRAUMATIC, NORMOCEPHALIC - Eye Exam Eye Exam: EOMI, PERRL Pupil Exam: PERRL. absent: Miosis, Mydriatic - ENT Exam ENT Exam: Mucous Membranes Moist, Normal Oropharynx - Neck Exam Neck Exam: Full ROM, Normal Inspection - Respiratory Exam Respiratory Exam: Clear to Ausculation Bilateral. absent: Rales, Rhonchi, Wheezes - Cardiovascular Exam Cardiovascular Exam: RRR, +S1, +S2. absent: Gallop, Rubs - GI/Abdominal Exam GI & Abdominal Exam: Soft, Normal Bowel Sounds. absent: Distended, Firm, Guarding, Tenderness, Organomegaly, Rebound - Extremities Exam Extremities Exam: Normal Inspection. absent: Pedal Edema - Neurological Exam Neurological Exam: Alert, Awake - Psychiatric Exam Psychiatric exam: Normal Affect, Normal Mood - Skin Skin Exam: Dry, Intact, Normal Color, Warm Assessment and Plan - Assessment and Plan (Free Text) Assessment: 85 year old male with history of MT complicated by CAD s/p 3 vessel CABG 2012 previously on Plavix, stopped since last dischage 04/2016, moderate aortic stenosis, ischemic cardiomyopathy 35-40%, CKD Stage 3, Hypertension, Hyperlipidemia presenting with weakness and blood in stool from nursing facility. Acute blood loss anemia 2/2 melena/maroon stools requiring multiple transfusions >EGD 05/23, push enteroscopy-05/24, 06/03 nonbleeding duodenal ulcer, Patrick Class IIc s/p epinephrine/APC >flexible sigmoidoscopy 05/30 and colonoscopy 06/04 inflammation of ileocolonic anastamosis, no active bleeding, hemorrhoids Plan: >no recurrent bleeding overnight >drop in H/H >CBC 1600 >T&S, hold 2 Units >continue PPI >recommend iron supplementation >Fluconazole to cover for marah esophagitis- may administer orally >advanced to heart healthy diet >stat bleeding scan if recurrent episode of overt GI bleed <Jesse Davenport - Last Filed: 06/05/16 12:30> Objective - Vital Signs/Intake and Output Vital Signs (last 24 hours): Temp Pulse Resp BP Pulse Ox 97.7 F 70 20 111/64 100 06/05/16 07:45 06/05/16 07:45 06/05/16 07:45 06/05/16 07:45 06/05/16 07:45 - Medications Medications: Current Medications Brimonidine Tartrate (Alphagan 0.2% Opht) 0 ml OU TID [facility] Last Admin: 06/05/16 10:09 Dose: 1 drop Dorzolamide HCl (Trusopt) 0 ml OU TID [facility] Last Admin: 06/05/16 10:09 Dose: 1 drop Fluconazole (Diflucan Iv 100 Mg/50 Ml Ns) 50 mls @ 100 mls/hr IVPB DAILY [facility] Last Admin: 06/05/16 10:10 Dose: 100 mls/hr Insulin Aspart (Novolog) 0 unit SC ACHS [facility] PRN Reason: Protocol Last Admin: 06/05/16 10:10 Dose: Not Given Latanoprost (Xalatan Opht) 0 ml OU HS [facility] Last Admin: 06/04/16 21:38 Dose: 2.5 ml Nystatin (Mycostatin Cream) 0 ea TOP TID [facility] Last Admin: 06/05/16 10:11 Dose: 1 applic Pantoprazole Sodium (Protonix Ec Tab) 40 mg PO BID [facility] Last Admin: 06/05/16 10:08 Dose: 40 mg Potassium Phos/Sodium Phos (Neutra-Phos) 1 pkt PO TIDCC [facility] Stop: 06/11/16 18:01 Last Admin: 06/05/16 08:28 Dose: 1 pkt Tamsulosin HCl (Flomax) 0.4 mg PO DAILY [facility] Last Admin: 06/05/16 10:08 Dose: 0.4 mg - Labs Labs: 06/05/16 07:06 06/05/16 07:06 PT 12.8 SECONDS (9.7-12.2) H 06/02/16 09:21 INR 1.2 06/02/16 09:21 APTT 31 SECONDS (21-34) 05/28/16 06:30 Attending/Attestation - Attestation I have personally seen and examined this patient.: Yes I have fully participated in the care of the patient.: Yes I have reviewed all pertinent clinical information, including history, physical exam and plan: Yes Notes (Text): 06/05/16 12:28 I have seen and examined patient with GI fellow. No acute events overnight. He is seen resting comfortably in bed, no bowel movements overnight. He denies abdominal pain, nausea, vomiting, fever/chills. Review of vitals from today are normal. CAD/CABG CKD Ischemic cardiomyopathy HTN / hyperlipidemia Recurrent GI bleeding, duodenal ulcer - No evidence of active bleeding noted on colonoscopy yesterday, continue to monitor H/H and transfuse as necessary - Will advance diet as tolerated - Continue with PPI therapy - Awaiting EGD biopsy results - Will continue to monitor patient clinical course
[2016-06-05] MEDS: Pantoprazole 40 mg EC Tab PO SCH ×2 (10:08→18:30)
[2016-06-05] MEDS: Dorzolamide 2% Opht Sol 10ml OU SCH ×3 (10:09→18:28)
[2016-06-05] MEDS: Brimonidine 0.2% Opth Sol (5ml) OU SCH ×3 (10:09→18:29)
[2016-06-05] MEDS: (Novolog) Insulin Aspart, Recombinant 100 u/ml 10 ml vial SC SCH ×4 (10:10→22:18)
[2016-06-05] MEDS: Fluconazole IV 100mg/50 ml NS 50 ML IVPB SCH (10:10)
[2016-06-05] MEDS: Nystatin 100,000 Units/gm Cream(15 gm) TOP SCH ×3 (10:11→18:33)
--- NOTE | 2016-06-05 11:42 | CP.PCM.PN ---
Subjective - Date & Time of Evaluation Date of Evaluation: 06/05/16 Time of Evaluation: 09:00 - Subjective Subjective: clinically same ecept pt had a 2 episdoes of black stools Objective - Vital Signs/Intake and Output Vital Signs (last 24 hours): Temp Pulse Resp BP Pulse Ox 97.7 F 70 20 111/64 100 06/05/16 07:45 06/05/16 07:45 06/05/16 07:45 06/05/16 07:45 06/05/16 07:45 - Medications Medications: Current Medications Brimonidine Tartrate (Alphagan 0.2% Opht) 0 ml OU TID [facility] Last Admin: 06/05/16 10:09 Dose: 1 drop Dorzolamide HCl (Trusopt) 0 ml OU TID [facility] Last Admin: 06/05/16 10:09 Dose: 1 drop Fluconazole (Diflucan Iv 100 Mg/50 Ml Ns) 50 mls @ 100 mls/hr IVPB DAILY [facility] Last Admin: 06/05/16 10:10 Dose: 100 mls/hr Insulin Aspart (Novolog) 0 unit SC ACHS [facility] PRN Reason: Protocol Last Admin: 06/05/16 10:10 Dose: Not Given Latanoprost (Xalatan Opht) 0 ml OU HS [facility] Last Admin: 06/04/16 21:38 Dose: 2.5 ml Nystatin (Mycostatin Cream) 0 ea TOP TID [facility] Last Admin: 06/05/16 10:11 Dose: 1 applic Pantoprazole Sodium (Protonix Ec Tab) 40 mg PO BID [facility] Last Admin: 06/05/16 10:08 Dose: 40 mg Potassium Phos/Sodium Phos (Neutra-Phos) 1 pkt PO TIDCC [facility] Stop: 06/11/16 18:01 Last Admin: 06/05/16 08:28 Dose: 1 pkt Tamsulosin HCl (Flomax) 0.4 mg PO DAILY [facility] Last Admin: 06/05/16 10:08 Dose: 0.4 mg - Labs Labs: 06/05/16 07:06 06/05/16 07:06 PT 12.8 SECONDS (9.7-12.2) H 06/02/16 09:21 INR 1.2 06/02/16 09:21 APTT 31 SECONDS (21-34) 05/28/16 06:30 - Constitutional Appears: Well - Head Exam Head Exam: ATRAUMATIC, NORMAL INSPECTION, NORMOCEPHALIC - Eye Exam Eye Exam: EOMI, Normal appearance, PERRL Pupil Exam: NORMAL ACCOMODATION, PERRL - ENT Exam ENT Exam: Mucous Membranes Moist, Normal Exam - Neck Exam Neck Exam: Full ROM, Normal Inspection. absent: Lymphadenopathy - Respiratory Exam Respiratory Exam: Decreased Breath Sounds - Cardiovascular Exam Cardiovascular Exam: REGULAR RHYTHM, +S1, +S2 - GI/Abdominal Exam GI & Abdominal Exam: Soft, Diminished Bowel Sounds - Rectal Exam Rectal Exam: Deferred Assessment and Plan (1) Acute renal failure Status: Acute (2) Anemia Status: Acute (3) BPH (benign prostatic hyperplasia) Status: Acute (4) Bilateral edema of lower extremity Status: Acute (5) DVT prophylaxis Status: Acute (6) Dry gangrene Status: Acute (7) Gastrointestinal hemorrhage Status: Acute (8) Hypochromic microcytic anemia Status: Acute (9) Hypovolemic shock Status: Acute (10) Memory difficulty Status: Acute (11) Paresthesia of both lower extremities Status: Acute (12) Pneumonia Status: Acute (13) CHF (congestive heart failure) Status: Chronic (14) Diabetes mellitus Status: Chronic - Assessment and Plan (Free Text) Plan: f/u with GI f/u with ID f/u with lining setter f/u with pulmology monitor BP continue monitor H/H protonix Imipenam/Cilastatin Novolog
[2016-06-05 20:04] LABS: HEMATOCRIT 24.7 % (35.0-51.0); MEAN CELL VOLUME 88.8 fL (80.0-94.0); MEAN CORPUSCULAR HEMOGLOBIN 29.4 pg (27.0-31.0); MEAN CORPUSCULAR HGB CONC 33.1 g/dL (33.0-37.0); MEAN PLATELET VOLUME 8.8 fL (7.2-11.7); RED CELL DISTRIBUTION WIDTH 17.6 % (11.5-14.5); WHITE BLOOD COUNT 6.5 K/uL (4.8-10.8)
--- NOTE | 2016-06-05 22:09 | CP.PCM.CON ---
History of Present Illness - History of Present Illness History of Present Illness: 85 M with a past medical history of anemia, CAD s/p 3 vessel CABG, moderate aortic stenosis, ischemic cardiomyopathy 35-40%, CKD Stage ,hypertension, hyperlipidemia admitted with hypotension, weakness, and blood in the stool . EGD 05/23, push enteroscopy-05/24, 06/03 nonbleeding duodenal ulcer, Patrick Class IIc s/p epinephrine/APC flexible sigmoidoscopy 05/30 and colonoscopy 06/04 inflammation of ileocolonic anastamosis, no active bleeding, hemorrhoids ICU evaluation called for 2 episodes of tarry stools (transferred out of ICU ).Denies chest pain,palpitations,abdominal pain.Patient receiving 2nd unit of PRBC ordered today..Hb after 1st unit was 8.2mg/dl(pre transfusion 7.4). systolic BP low 90's.HR 72/min GI has requested bleeding scan Review of Systems - Constitutional Constitutional: absent: Chills - EENT Eyes: Blurred Vision - Cardiovascular Cardiovascular: Chest Pain, Edema, Palpitations, Rapid Heart Rate - Respiratory Respiratory: Cough, Dyspnea - Gastrointestinal Gastrointestinal: Abdominal Pain - Hematologic/Lymphatic Hematologic: Easy Bleeding Past Patient History - Tetanus Immunizations Tetanus Immunization: Unknown - Past Medical History & Family History Past Medical History?: Yes - Past Social History Smoking Status: Former Smoker Alcohol: None - CARDIAC Hx Cardiac Disorders: Yes Hx Congestive Heart Failure: Yes Hx Hypertension: Yes - PULMONARY Hx Respiratory Disorders: Yes Hx Pneumonia: Yes - NEUROLOGICAL Hx Neurological Disorder: Yes HX Cerebrovascular Accident: Yes - HEENT Hx HEENT Problems: Yes Hx Glaucoma: Yes - RENAL Hx Chronic Kidney Disease: Yes Other/Comment: ckd - ENDOCRINE/METABOLIC Hx Diabetes Mellitus Type 2: Yes - HEMATOLOGICAL/ONCOLOGICAL Hx Blood Disorders: Yes Hx Anemia: Yes - INTEGUMENTARY Hx Dermatological Problems: No - MUSCULOSKELETAL/RHEUMATOLOGICAL Hx Musculoskeletal Disorders: Yes Hx Falls: Yes - GASTROINTESTINAL Hx Gastrointestinal Disorders: No - GENITOURINARY/GYNECOLOGICAL Hx Genitourinary Disorders: No - PSYCHIATRIC Hx Psychophysiologic Disorder: No Hx Substance Use: No - SURGICAL HISTORY Hx Surgeries: Yes Hx Appendectomy: Yes (2014) Hx Coronary Artery Bypass Graft: Yes (2012) - ANESTHESIA Hx Anesthesia: Yes Hx Anesthesia Reactions: No Hx Malignant Hyperthermia: No Has any member of the family had a problem w/ anesthesia?: No Meds Allergies/Adverse Reactions: Allergies Allergy/AdvReac Type Severity Reaction Status Date / Time No Known Allergies Allergy Unverified 05/21/16 23:21 - Medications Medications: Current Medications Brimonidine Tartrate (Alphagan 0.2% Opht) 0 ml OU TID [facility] Last Admin: 06/05/16 18:29 Dose: 1 drop Dorzolamide HCl (Trusopt) 0 ml OU TID [facility] Last Admin: 06/05/16 18:28 Dose: 1 drop Fluconazole (Diflucan Iv 100 Mg/50 Ml Ns) 50 mls @ 100 mls/hr IVPB DAILY [facility] Last Admin: 06/05/16 10:10 Dose: 100 mls/hr Insulin Aspart (Novolog) 0 unit SC ACHS [facility] PRN Reason: Protocol Last Admin: 06/05/16 18:32 Dose: 4 unit Latanoprost (Xalatan Opht) 0 ml OU HS [facility] Last Admin: 06/04/16 21:38 Dose: 2.5 ml Nystatin (Mycostatin Cream) 0 ea TOP TID [facility] Last Admin: 06/05/16 18:33 Dose: 1 applic Pantoprazole Sodium (Protonix Ec Tab) 40 mg PO BID [facility] Last Admin: 06/05/16 18:30 Dose: 40 mg Potassium Phos/Sodium Phos (Neutra-Phos) 1 pkt PO TIDCC [facility] Stop: 06/11/16 18:01 Last Admin: 06/05/16 18:32 Dose: 1 pkt Tamsulosin HCl (Flomax) 0.4 mg PO DAILY [facility] Last Admin: 06/05/16 10:08 Dose: 0.4 mg Physical Exam - Constitutional Appears: No Acute Distress - Head Exam Head Exam: ATRAUMATIC, NORMAL INSPECTION, NORMOCEPHALIC - Eye Exam Eye Exam: EOMI, Normal appearance Pupil Exam: NORMAL ACCOMODATION - ENT Exam ENT Exam: Mucous Membranes Dry - Respiratory Exam Respiratory Exam: Clear to Auscultation Bilateral, NORMAL BREATHING PATTERN - Cardiovascular Exam Cardiovascular Exam: REGULAR RHYTHM - GI/Abdominal Exam GI & Abdominal Exam: Normal Bowel Sounds, Soft. absent: Tenderness - Extremities Exam Extremities exam: Negative for: pedal edema - Back Exam Back exam: NORMAL INSPECTION - Neurological Exam Neurological exam: Alert, Oriented x3 - Skin Skin Exam: Dry Results - Vital Signs Recent Vital Signs: Last Vital Signs Temp 97.9 F 06/05/16 20:20 Pulse 72 06/05/16 20:20 Resp 20 06/05/16 20:20 BP 100/62 06/05/16 20:20 Pulse Ox 100 06/05/16 15:00 - Labs Result Diagrams: 06/05/16 19:52 06/05/16 07:06 Labs: Laboratory Results - last 24 hr 06/05/16 06/05/16 06/05/16 07:06 08:23 11:07 WBC 6.3 RBC 2.52 L Hgb 7.4 L Hct 22.2 L MCV 88.1 MCH 29.3 MCHC 33.2 RDW 18.7 H Plt Count 110 L MPV 9.1 Neut % (Auto) 66.8 Lymph % (Auto) 25.4 Bucks % (Auto) 6.1 Eos % (Auto) 1.4 Baso % (Auto) 0.3 Neut # 4.2 Lymph # 1.6 Bucks # 0.4 Eos # 0.1 Baso # 0.0 Sodium 143 Potassium 3.6 Chloride 115 H Carbon Dioxide 17 L Anion Gap 15 BUN 12 Creatinine 1.3 Est GFR ( Amer) > 60 Est GFR (Non-Af Amer) 53 POC Glucose (mg/dL) 97 119 H Random Glucose 85 Calcium 7.0 L Phosphorus 2.4 L Magnesium 2.0 Total Bilirubin 0.1 L AST 13 L ALT 16 L Alkaline Phosphatase 47 Total Protein 4.2 L Albumin 1.6 L Globulin 2.6 Albumin/Globulin Ratio 0.6 L Blood Type Antibody Screen 06/05/16 06/05/16 06/05/16 13:25 16:08 19:52 WBC 6.5 RBC 2.78 L Hgb 8.2 L Hct 24.7 L MCV 88.8 MCH 29.4 MCHC 33.1 RDW 17.6 H Plt Count 96 L MPV 8.8 Neut % (Auto) Lymph % (Auto) Bucks % (Auto) Eos % (Auto) Baso % (Auto) Neut # Lymph # Bucks # Eos # Baso # Sodium Potassium Chloride Carbon Dioxide Anion Gap BUN Creatinine Est GFR ( Amer) Est GFR (Non-Af Amer) POC Glucose (mg/dL) 213 H Random Glucose Calcium Phosphorus Magnesium Total Bilirubin AST ALT Alkaline Phosphatase Total Protein Albumin Globulin Albumin/Globulin Ratio Blood Type O POSITIVE Antibody Screen Negative 06/05/16 21:11 WBC RBC Hgb Hct MCV MCH MCHC RDW Plt Count MPV Neut % (Auto) Lymph % (Auto) Bucks % (Auto) Eos % (Auto) Baso % (Auto) Neut # Lymph # Bucks # Eos # Baso # Sodium Potassium Chloride Carbon Dioxide Anion Gap BUN Creatinine Est GFR ( Amer) Est GFR (Non-Af Amer) POC Glucose (mg/dL) 138 H Random Glucose Calcium Phosphorus Magnesium Total Bilirubin AST ALT Alkaline Phosphatase Total Protein Albumin Globulin Albumin/Globulin Ratio Blood Type Antibody Screen Assessment & Plan - Assessment and Plan (Free Text) Assessment: 1.GI bleed- EGD 05/23, push enteroscopy-05/24, 06/03 nonbleeding duodenal ulcer, Patrick Class IIc s/p epinephrine/APC flexible sigmoidoscopy 05/30 and colonoscopy 06/04 inflammation of ileocolonic anastamosis, no active bleeding, hemorrhoid PRBC transfusion in progress for bleeding scan 2.Anemia/GI bleed f/u CBC after PRBC transfusion 3.CAD/ h/o HTN,off plavix ,aspirin due to bleeding.Monitor BP 4.aortic stenosis, ischemic cardiomyopathy 35-40%
[2016-06-05] MEDS: Latanoprost 2.5 ml Opht Soln OU SCH (22:17)
[2016-06-05] MEDS ORDERED: Dextrose 5%/0.9% NS 1,000 ML IV ONE (22:23)
[2016-06-06 00:59] LABS: BASO % 0.3 % (0.0-2.0); EOS # 0.1 K/uL (0.0-0.7); EOS % 0.9 % (0.0-4.0); HEMATOCRIT 29.5 % (35.0-51.0); LYMPH # 2.2 K/uL (1.0-4.3); MEAN CELL VOLUME 88.6 fL (80.0-94.0); MEAN CORPUSCULAR HGB CONC 32.8 g/dL (33.0-37.0); MEAN PLATELET VOLUME 8.7 fL (7.2-11.7); MONO # 0.4 K/uL (0.0-0.8); MONO % 5.9 % (0.0-10.0); NRBC % 0.1 % (0.0-2.0); RED CELL DISTRIBUTION WIDTH 16.6 % (11.5-14.5); WHITE BLOOD COUNT 7.4 K/uL (4.8-10.8)
--- NOTE | 2016-06-06 03:24 | CP.PCM.CON ---
<Bhupinder Denis - Last Filed: 06/06/16 16:03> History of Present Illness - History of Present Illness History of Present Illness: 85M w/ hx of anemia,HTN, NC, ischemic cardiomyopathy (EF:35-40%), admitted on for anemia and GI bleed.During this admission patient has had both endoscopy & colonoscopy, no active bleeding noted. General surgery was consulted for lower GI bleed. Hemoglobin was noted to be 6.5 on 06/05, after patient had two tarry bowel movements. Patient was transfused 2 PRBCs, repeat hemoglobin was shown to be 9.7 s/p transfusions. A bleeding scan was ordered which demonstrated active GI bleeding in the mid transverse colon. Currently patient reports some dizziness but has no other complaints and his vitals are stable. As per nursing patient has not had anymore bloody/tarry bowel movements since being transferred to the ICU. Patient denies fever/chills, chest pain/SOB, n/v/d , abdominal pain. PSHx- CABG 2013 PMHx- as noted above Social- Former smoker. Denies tobacco, alcohol, illicit drug use Allergies- NKDA Review of Systems - Constitutional Constitutional: absent: Headache - EENT Nose/Mouth/Throat: absent: Epistaxis, Nasal Congestion - Cardiovascular Cardiovascular: absent: Chest Pain - Respiratory Respiratory: absent: Cough - Gastrointestinal Gastrointestinal: Hematochezia. absent: Abdominal Pain, Bloating, Hematemesis, Nausea, Vomiting - Musculoskeletal Musculoskeletal: absent: Back Pain - Integumentary Integumentary: absent: Jaundice - Neurological Neurological: Dizziness Past Patient History - Tetanus Immunizations Tetanus Immunization: Unknown - Past Medical History & Family History Past Medical History?: Yes - Past Social History Smoking Status: Former Smoker Alcohol: None - CARDIAC Hx Cardiac Disorders: Yes Hx Congestive Heart Failure: Yes Hx Hypertension: Yes - PULMONARY Hx Respiratory Disorders: Yes Hx Pneumonia: Yes - NEUROLOGICAL Hx Neurological Disorder: Yes HX Cerebrovascular Accident: Yes - HEENT Hx HEENT Problems: Yes Hx Glaucoma: Yes - RENAL Hx Chronic Kidney Disease: Yes Other/Comment: ckd - ENDOCRINE/METABOLIC Hx Diabetes Mellitus Type 2: Yes - HEMATOLOGICAL/ONCOLOGICAL Hx Blood Disorders: Yes Hx Anemia: Yes - INTEGUMENTARY Hx Dermatological Problems: No - MUSCULOSKELETAL/RHEUMATOLOGICAL Hx Musculoskeletal Disorders: Yes Hx Falls: Yes - GASTROINTESTINAL Hx Gastrointestinal Disorders: No - GENITOURINARY/GYNECOLOGICAL Hx Genitourinary Disorders: No - PSYCHIATRIC Hx Psychophysiologic Disorder: No Hx Substance Use: No - SURGICAL HISTORY Hx Surgeries: Yes Hx Appendectomy: Yes (2014) Hx Coronary Artery Bypass Graft: Yes (2012) - ANESTHESIA Hx Anesthesia: Yes Hx Anesthesia Reactions: No Hx Malignant Hyperthermia: No Has any member of the family had a problem w/ anesthesia?: No Meds Allergies/Adverse Reactions: Allergies Allergy/AdvReac Type Severity Reaction Status Date / Time No Known Allergies Allergy Unverified 05/21/16 23:21 - Medications Medications: Current Medications Brimonidine Tartrate (Alphagan 0.2% Opht) 0 ml OU TID [facility] Last Admin: 06/05/16 18:29 Dose: 1 drop Dorzolamide HCl (Trusopt) 0 ml OU TID [facility] Last Admin: 06/05/16 18:28 Dose: 1 drop Fluconazole (Diflucan Iv 100 Mg/50 Ml Ns) 50 mls @ 100 mls/hr IVPB DAILY [facility] Last Admin: 06/05/16 10:10 Dose: 100 mls/hr Dextrose/Sodium Chloride (Dextrose 5%/0.9% Ns 1000 Ml) 1,000 mls @ 40 mls/hr IV .Q24H ONE Stop: 06/06/16 22:22 Last Admin: 06/06/16 00:50 Dose: 40 mls/hr Insulin Aspart (Novolog) 0 unit SC Q6H [facility] PRN Reason: Protocol Latanoprost (Xalatan Opht) 0 ml OU HS [facility] Last Admin: 06/05/16 22:17 Dose: 2.5 ml Nystatin (Mycostatin Cream) 0 ea TOP TID [facility] Last Admin: 06/05/16 18:33 Dose: 1 applic Pantoprazole Sodium (Protonix Ec Tab) 40 mg PO BID [facility] Last Admin: 06/05/16 18:30 Dose: 40 mg Potassium Phos/Sodium Phos (Neutra-Phos) 1 pkt PO TIDCC [facility] Stop: 06/11/16 18:01 Last Admin: 06/05/16 18:32 Dose: 1 pkt Tamsulosin HCl (Flomax) 0.4 mg PO DAILY [facility] Last Admin: 06/05/16 10:08 Dose: 0.4 mg Results - Vital Signs Recent Vital Signs: Last Vital Signs Temp 98.6 F 06/06/16 02:00 Pulse 71 06/06/16 03:03 Resp 17 06/06/16 03:03 BP 107/63 06/06/16 03:03 Pulse Ox 100 06/06/16 03:03 - Labs Result Diagrams: 06/06/16 04:53 06/06/16 04:53 Labs: Laboratory Results - last 24 hr 06/05/16 06/05/16 06/05/16 07:06 08:23 11:07 WBC 6.3 RBC 2.52 L Hgb 7.4 L Hct 22.2 L MCV 88.1 MCH 29.3 MCHC 33.2 RDW 18.7 H Plt Count 110 L MPV 9.1 Neut % (Auto) 66.8 Lymph % (Auto) 25.4 [place] % (Auto) 6.1 Eos % (Auto) 1.4 Baso % (Auto) 0.3 Neut # 4.2 Lymph # 1.6 [place] # 0.4 Eos # 0.1 Baso # 0.0 Sodium 143 Potassium 3.6 Chloride 115 H Carbon Dioxide 17 L Anion Gap 15 BUN 12 Creatinine 1.3 Est GFR ( Amer) > 60 Est GFR (Non-Af Amer) 53 POC Glucose (mg/dL) 97 119 H Random Glucose 85 Calcium 7.0 L Phosphorus 2.4 L Magnesium 2.0 Total Bilirubin 0.1 L AST 13 L ALT 16 L Alkaline Phosphatase 47 Total Protein 4.2 L Albumin 1.6 L Globulin 2.6 Albumin/Globulin Ratio 0.6 L Blood Type Antibody Screen 06/05/16 06/05/16 06/05/16 13:25 16:08 19:52 WBC 6.5 RBC 2.78 L Hgb 8.2 L Hct 24.7 L MCV 88.8 MCH 29.4 MCHC 33.1 RDW 17.6 H Plt Count 96 L MPV 8.8 Neut % (Auto) Lymph % (Auto) [place] % (Auto) Eos % (Auto) Baso % (Auto) Neut # Lymph # [place] # Eos # Baso # Sodium Potassium Chloride Carbon Dioxide Anion Gap BUN Creatinine Est GFR ( Amer) Est GFR (Non-Af Amer) POC Glucose (mg/dL) 213 H Random Glucose Calcium Phosphorus Magnesium Total Bilirubin AST ALT Alkaline Phosphatase Total Protein Albumin Globulin Albumin/Globulin Ratio Blood Type O POSITIVE Antibody Screen Negative 06/05/16 06/06/16 21:11 00:56 WBC 7.4 RBC 3.33 L Hgb 9.7 L Hct 29.5 L MCV 88.6 MCH 29.0 MCHC 32.8 L RDW 16.6 H Plt Count 100 L MPV 8.7 Neut % (Auto) 62.9 Lymph % (Auto) 30.0 [place] % (Auto) 5.9 Eos % (Auto) 0.9 Baso % (Auto) 0.3 Neut # 4.6 Lymph # 2.2 Jun[place] # 0.4 Eos # 0.1 Baso # 0.0 Sodium Potassium Chloride Carbon Dioxide Anion Gap BUN Creatinine Est GFR ( Amer) Est GFR (Non-Af Amer) POC Glucose (mg/dL) 138 H Random Glucose Calcium Phosphorus Magnesium Total Bilirubin AST ALT Alkaline Phosphatase Total Protein Albumin Globulin Albumin/Globulin Ratio Blood Type Antibody Screen Assessment & Plan - Assessment and Plan (Free Text) Assessment: 85 y/o M w/ hx of anemia w/ hx of lower GI bleed and multiple bouts of melenic stools -Hgb has remained stabled after transfusion of 2 PRBCs, current Hgb : 9.4 -Conservative management -NPO -IVF -PPI -Monitor for bleeding -Hold anticoagulation -No acute surgical intervention -Further recs per Dr. Crane <Erasmo Crane - Last Filed: 06/08/16 12:04> Meds - Medications Medications: Current Medications Fluconazole (Diflucan Iv 100 Mg/50 Ml Ns) 50 mls @ 100 mls/hr IVPB DAILY [facility] Last Admin: 06/08/16 09:38 Dose: 100 mls/hr Insulin Aspart (Novolog) 0 unit SC ACHS [facility] PRN Reason: Protocol Last Admin: 06/08/16 08:58 Dose: Not Given Latanoprost (Xalatan Opht) 0 ml OU HS [facility] Last Admin: 06/07/16 21:00 Dose: 2.5 ml Pantoprazole Sodium (Protonix Inj) 40 mg IVP DAILY [facility] Last Admin: 06/08/16 09:35 Dose: 40 mg Potassium Phos/Sodium Phos (Neutra-Phos) 1 pkt PO TIDCC [facility] Stop: 06/11/16 18:01 Last Admin: 06/08/16 08:58 Dose: Not Given Tamsulosin HCl (Flomax) 0.4 mg PO DAILY [facility] Last Admin: 06/08/16 11:11 Dose: 0.4 mg Results - Vital Signs Recent Vital Signs: Last Vital Signs Temp 97.9 F 06/08/16 10:30 Pulse 78 06/08/16 11:00 Resp 12 06/08/16 11:00 BP 111/64 06/08/16 10:59 Pulse Ox 100 06/08/16 11:00 - Labs Result Diagrams: 06/08/16 06:08 06/08/16 06:04 Labs: Laboratory Results - last 24 hr 06/05/16 06/07/16 06/07/16 13:25 12:55 17:31 WBC RBC Hgb 8.1 L Hct 25.1 L MCV MCH MCHC RDW Plt Count MPV Neut % (Auto) Lymph % (Auto) [place] % (Auto) Eos % (Auto) Baso % (Auto) Neut # Lymph # [place] # Eos # Baso # PT INR APTT Plt Function Assay Sodium Potassium Chloride Carbon Dioxide Anion Gap BUN Creatinine Est GFR ( Amer) Est GFR (Non-Af Amer) POC Glucose (mg/dL) 120 H Random Glucose Calcium Phosphorus Magnesium Total Bilirubin AST ALT Alkaline Phosphatase Total Protein Albumin Globulin Albumin/Globulin Ratio Blood Type O POSITIVE Antibody Screen Negative 06/08/16 06/08/16 06/08/16 00:33 06:04 06:08 WBC 5.4 RBC 2.45 L Hgb 7.2 L Hct 21.7 L MCV 88.6 MCH 29.4 MCHC 33.2 RDW 17.3 H Plt Count 107 L MPV 8.7 Neut % (Auto) 60.9 Lymph % (Auto) 30.6 [place] % (Auto) 6.9 Eos % (Auto) 1.3 Baso % (Auto) 0.3 Neut # 3.3 Lymph # 1.7 [place] # 0.4 Eos # 0.1 Baso # 0.0 PT INR APTT Plt Function Assay Sodium 141 Potassium 4.0 Chloride 118 H Carbon Dioxide 16 L Anion Gap 11 BUN 14 Creatinine 1.2 Est GFR ( Amer) > 60 Est GFR (Non-Af Amer) 58 POC Glucose (mg/dL) 87 Random Glucose 99 Calcium 6.8 L Phosphorus 2.7 Magnesium 1.6 Total Bilirubin 0.2 AST 13 L ALT 23 Alkaline Phosphatase 41 Total Protein 4.1 L Albumin 1.5 L Globulin 2.5 Albumin/Globulin Ratio 0.6 L Blood Type Antibody Screen 06/08/16 06/08/16 06/08/16 07:32 10:39 11:11 WBC RBC Hgb Hct MCV MCH MCHC RDW Plt Count MPV Neut % (Auto) Lymph % (Auto) [place] % (Auto) Eos % (Auto) Baso % (Auto) Neut # Lymph # [place] # Eos # Baso # PT 13.2 H INR 1.2 APTT 31 Plt Function Assay 94 Sodium Potassium Chloride Carbon Dioxide Anion Gap BUN Creatinine Est GFR ( Amer) Est GFR (Non-Af Amer) POC Glucose (mg/dL) 110 Random Glucose Calcium Phosphorus Magnesium Total Bilirubin AST ALT Alkaline Phosphatase Total Protein Albumin Globulin Albumin/Globulin Ratio Blood Type Antibody Screen 06/08/16 11:41 WBC RBC Hgb Hct MCV MCH MCHC RDW Plt Count MPV Neut % (Auto) Lymph % (Auto) [place] % (Auto) Eos % (Auto) Baso % (Auto) Neut # Lymph # [place] # Eos # Baso # PT INR APTT Plt Function Assay Sodium Potassium Chloride Carbon Dioxide Anion Gap BUN Creatinine Est GFR ( Amer) Est GFR (Non-Af Amer) POC Glucose (mg/dL) 131 H Random Glucose Calcium Phosphorus Magnesium Total Bilirubin AST ALT Alkaline Phosphatase Total Protein Albumin Globulin Albumin/Globulin Ratio Blood Type Antibody Screen Attending/Attestation - Attestation I have personally seen and examined this patient.: Yes I have fully participated in the care of the patient.: Yes I have reviewed all pertinent clinical information: Yes Notes (Text): 06/08/16 12:03 Pt was seen and examined at bedside on 06/06/16 Agree with above note and assessment. Pt with Lower GI bleed due to Plavix Plan d.w ICU attending and GI physician Philomena current mx Plan d.w pt in detail Risk and benefit explained in detail.
[2016-06-06 04:56] LABS: BASO % 0.3 % (0.0-2.0); EOS # 0.1 K/uL (0.0-0.7); EOS % 1.1 % (0.0-4.0); HEMATOCRIT 28.8 % (35.0-51.0); LYMPH # 2.5 K/uL (1.0-4.3); LYMPH % 32.3 % (20.0-40.0); MEAN CELL VOLUME 88.2 fL (80.0-94.0); MEAN CORPUSCULAR HEMOGLOBIN 28.7 pg (27.0-31.0); MEAN CORPUSCULAR HGB CONC 32.6 g/dL (33.0-37.0); MEAN PLATELET VOLUME 8.9 fL (7.2-11.7); MONO # 0.5 K/uL (0.0-0.8); MONO % 7.1 % (0.0-10.0); NRBC % 0.1 % (0.0-2.0); RED CELL DISTRIBUTION WIDTH 16.7 % (11.5-14.5); WHITE BLOOD COUNT 7.7 K/uL (4.8-10.8)
[2016-06-06 05:04] LABS: CHLORIDE 115 mmol/L (98-107); POTASSIUM 3.8 mmol/L (3.6-5.2); SODIUM 141 mmol/L (132-148)
[2016-06-06 05:06] LABS: BILIRUBIN,TOTAL 0.2 mg/dL (0.2-1.3); GFR AFRICAN-AMERICAN > 60
[2016-06-06 05:07] LABS: ALB/GLOB RATIO 0.7 (1.0-2.1); ALKALINE PHOSPHATASE 46 U/L (38-126); ALT/SGPT 14 U/L (21-72); AST/SGOT 13 U/L (17-59); BLOOD UREA NITROGEN 17 mg/dL (9-20); CARBON DIOXIDE 18 mmol/L (22-30); GLUCOSE,RANDOM 105 mg/dL (75-110); PHOSPHOROUS 2.2 mg/dL (2.5-4.5); TOTAL PROTEIN 4.4 g/dL (6.3-8.3)
[2016-06-06 05:08] LABS: MAGNESIUM 1.9 mg/dL (1.6-2.3)
[2016-06-06] MEDS: (Novolog) Insulin Aspart, Recombinant 100 u/ml 10 ml vial SC SCH ×3 (06:00→17:59)
[2016-06-06] MEDS ORDERED: Sodium Phosphate 15 MMOLE in Sodium Chloride 0.9% 250 ML IVPB ONE (07:53)
--- NOTE | 2016-06-06 08:31 | RAD ---
PROCEDURE: CHEST RADIOGRAPH, 1 VIEW HISTORY: pleural effusion COMPARISON: 05/24/2016 FINDINGS: LUNGS: Right PICC line with tip extending to the cavoatrial junction. Biapical pleural thickening with upper lobe granulomatous changes. Chronic interstitial lung markings. Bilateral hilar prominence. Patchy left basilar airspace opacity with question small left pleural effusion. PLEURA: As above. CARDIOVASCULAR: Status post median sternotomy. Mild cardiomegaly. Calcification at the aortic knob. OSSEOUS STRUCTURES: Degenerative changes in the spine and shoulders. VISUALIZED UPPER ABDOMEN: Normal. OTHER FINDINGS: None. IMPRESSION: Right PICC line with tip extending to the cavoatrial junction. Biapical pleural thickening with upper lobe granulomatous changes. Chronic interstitial lung markings. Bilateral hilar prominence. Patchy left basilar airspace opacity with question small left pleural effusion.
[2016-06-06] MEDS ORDERED: Propofol 10 mg/ml Inj (20 ML) ONE (09:08)
[2016-06-06] MEDS ORDERED: Midazolam 2 MG/2 ML VIAL ONE (09:08)
[2016-06-06] MEDS ORDERED: Etomidate 20 mg/10ml Inj IV ONE ×2 (09:11→10:03)
[2016-06-06] MEDS ORDERED: ePHEDrine 50 mg/ml Inj ONE (09:23)
[2016-06-06] MEDS ORDERED: Phenylephrine 10 mg/ml Inj ONE (09:37)
[2016-06-06] MEDS ORDERED: Pantoprazole 80 MG in Sodium Chloride 0.9% 100 ML IVP SCH (09:45)
[2016-06-06] MEDS ORDERED: Pantoprazole 80 MG in Sodium Chloride 0.9% 100 ML IVPB SCH (09:45)
--- NOTE | 2016-06-06 10:15 | CP.PCM.PN ---
Subjective - Date & Time of Evaluation Date of Evaluation: 06/06/16 Time of Evaluation: 02:20 - Subjective Subjective: clinically same Objective - Vital Signs/Intake and Output Vital Signs (last 24 hours): Temp Pulse Resp BP Pulse Ox 98.5 F 93 H 12 114/63 100 06/06/16 04:00 06/06/16 09:14 06/06/16 09:14 06/06/16 09:14 06/06/16 09:14 Intake and Output: 06/06/16 06/06/16 06:59 18:59 Intake Total 1045 40 Output Total 450 Balance 595 40 - Medications Medications: Current Medications Brimonidine Tartrate (Alphagan 0.2% Opht) 0 ml OU TID [facility] Last Admin: 06/05/16 18:29 Dose: 1 drop Dorzolamide HCl (Trusopt) 0 ml OU TID [facility] Last Admin: 06/05/16 18:28 Dose: 1 drop Fluconazole (Diflucan Iv 100 Mg/50 Ml Ns) 50 mls @ 100 mls/hr IVPB DAILY [facility] Last Admin: 06/05/16 10:10 Dose: 100 mls/hr Dextrose/Sodium Chloride (Dextrose 5%/0.9% Ns 1000 Ml) 1,000 mls @ 40 mls/hr IV .Q24H [facility] Stop: 06/06/16 22:22 Last Admin: 06/06/16 00:50 Dose: 40 mls/hr Sodium Phosphate 15 mmole/ (Sodium Chloride) 255 mls @ 50 mls/hr IVPB .Q5H6M [facility] Stop: 06/06/16 12:58 Pantoprazole Sodium 80 mg/ (Sodium Chloride) 100 mls @ 1,200 mls/hr IVP ONCE [facility] Pantoprazole Sodium 80 mg/ (Sodium Chloride) 100 mls @ 10 mls/hr IVP .Q10H [facility] PRN Reason: 8 MG/HR Insulin Aspart (Novolog) 0 unit SC Q6H [facility] PRN Reason: Protocol Last Admin: 06/06/16 06:00 Dose: Not Given Latanoprost (Xalatan Opht) 0 ml OU HS [facility] Last Admin: 06/05/16 22:17 Dose: 2.5 ml Nystatin (Mycostatin Cream) 0 ea TOP TID [facility] Last Admin: 06/05/16 18:33 Dose: 1 applic Potassium Phos/Sodium Phos (Neutra-Phos) 1 pkt PO TIDCC [facility] Stop: 06/11/16 18:01 Last Admin: 06/05/16 18:32 Dose: 1 pkt Tamsulosin HCl (Flomax) 0.4 mg PO DAILY [facility] Last Admin: 06/05/16 10:08 Dose: 0.4 mg - Labs Labs: 06/06/16 04:53 06/06/16 04:53 PT 12.8 SECONDS (9.7-12.2) H 06/02/16 09:21 INR 1.2 06/02/16 09:21 APTT 31 SECONDS (21-34) 05/28/16 06:30 - Constitutional Appears: Well - Head Exam Head Exam: ATRAUMATIC, NORMAL INSPECTION, NORMOCEPHALIC - Eye Exam Eye Exam: EOMI, Normal appearance, PERRL Pupil Exam: NORMAL ACCOMODATION, PERRL - ENT Exam ENT Exam: Mucous Membranes Moist, Normal Exam - Neck Exam Neck Exam: Full ROM, Normal Inspection. absent: Lymphadenopathy - Respiratory Exam Respiratory Exam: Decreased Breath Sounds - Cardiovascular Exam Cardiovascular Exam: REGULAR RHYTHM, +S1, +S2 - GI/Abdominal Exam GI & Abdominal Exam: Soft, Diminished Bowel Sounds - Rectal Exam Rectal Exam: Deferred Assessment and Plan (1) Acute renal failure Status: Acute (2) Anemia Status: Acute (3) BPH (benign prostatic hyperplasia) Status: Acute (4) Bilateral edema of lower extremity Status: Acute (5) DVT prophylaxis Status: Acute (6) Dry gangrene Status: Acute (7) Gastrointestinal hemorrhage Status: Acute (8) Hypochromic microcytic anemia Status: Acute (9) Hypovolemic shock Status: Acute (10) Memory difficulty Status: Acute (11) Paresthesia of both lower extremities Status: Acute (12) Pneumonia Status: Acute (13) CHF (congestive heart failure) Status: Chronic (14) Diabetes mellitus Status: Chronic - Assessment and Plan (Free Text) Plan: f/u with GI f/u with ID f/u with rating examiner f/u with pulmology continue monitor H/H s/p colonoscopy with epinephrine and cautery to ulcerated sites at ileocolonic anastamosis monitor BP Dextrose 5% protonix Novolog
[2016-06-06] MEDS: Potassium & Sodium Phosphate PO SCH ×3 (10:58→19:54)
--- NOTE | 2016-06-06 11:19 | CP.PCM.PN ---
Subjective - Date & Time of Evaluation Date of Evaluation: 06/06/16 Time of Evaluation: 11:19 - Subjective Subjective: Drowsy s/p colonoscopy with reported cauterization of bleeders noted on bleeding scan NSR: no AFIB Multiple EKGs reviewed showing NSR and PACs: no significant arrythmias noted. No fever, normotensive, No Edema Objective - Vital Signs/Intake and Output Vital Signs (last 24 hours): Temp Pulse Resp BP Pulse Ox 98.5 F 93 H 12 114/63 100 06/06/16 04:00 06/06/16 09:14 06/06/16 09:14 06/06/16 09:14 06/06/16 09:14 Intake and Output: 06/06/16 06/06/16 06:59 18:59 Intake Total 1045 540 Output Total 450 Balance 595 540 - Medications Medications: Current Medications Brimonidine Tartrate (Alphagan 0.2% Opht) 0 ml OU TID [facility] Last Admin: 06/05/16 18:29 Dose: 1 drop Dorzolamide HCl (Trusopt) 0 ml OU TID [facility] Last Admin: 06/05/16 18:28 Dose: 1 drop Fluconazole (Diflucan Iv 100 Mg/50 Ml Ns) 50 mls @ 100 mls/hr IVPB DAILY [facility] Last Admin: 06/05/16 10:10 Dose: 100 mls/hr Dextrose/Sodium Chloride (Dextrose 5%/0.9% Ns 1000 Ml) 1,000 mls @ 40 mls/hr IV .Q24H ONE Stop: 06/06/16 22:22 Last Admin: 06/06/16 00:50 Dose: 40 mls/hr Sodium Phosphate 15 mmole/ (Sodium Chloride) 255 mls @ 50 mls/hr IVPB .Q5H6M [facility] Stop: 06/06/16 12:58 Pantoprazole Sodium 80 mg/ (Sodium Chloride) 100 mls @ 1,200 mls/hr IVPB ONCE [facility] Pantoprazole Sodium 80 mg/ (Sodium Chloride) 100 mls @ 10 mls/hr IVPB .Q10H [facility] PRN Reason: 8 MG/HR Insulin Aspart (Novolog) 0 unit SC Q6H [facility] PRN Reason: Protocol Last Admin: 06/06/16 06:00 Dose: Not Given Latanoprost (Xalatan Opht) 0 ml OU HS [facility] Last Admin: 06/05/16 22:17 Dose: 2.5 ml Potassium Phos/Sodium Phos (Neutra-Phos) 1 pkt PO TIDCC [facility] Stop: 06/11/16 18:01 Last Admin: 06/06/16 10:58 Dose: Not Given Tamsulosin HCl (Flomax) 0.4 mg PO DAILY [facility] Last Admin: 06/05/16 10:08 Dose: 0.4 mg - Labs Labs: 06/06/16 04:53 06/06/16 04:53 PT 12.8 SECONDS (9.7-12.2) H 06/02/16 09:21 INR 1.2 06/02/16 09:21 APTT 31 SECONDS (21-34) 05/28/16 06:30 - Constitutional Appears: Chronically Ill - Head Exam Head Exam: ATRAUMATIC, NORMAL INSPECTION, NORMOCEPHALIC - Eye Exam Eye Exam: Normal appearance. absent: Scleral icterus - Neck Exam Neck Exam: Normal Inspection. absent: Tenderness - Respiratory Exam Respiratory Exam: NORMAL BREATHING PATTERN. absent: Rales, Rhonchi, Wheezes - Cardiovascular Exam Cardiovascular Exam: REGULAR RHYTHM, RRR, +S1, +S2. absent: JVD, +S4, Murmur - GI/Abdominal Exam GI & Abdominal Exam: Soft. absent: Tenderness - Extremities Exam Extremities Exam: Normal Inspection. absent: Pedal Edema - Neurological Exam Neurological Exam: Altered Assessment and Plan - Assessment and Plan (Free Text) Assessment: 85 y/o with Chronic compensated Mod LV systolic dysfunction, mild MR, Mod , distal septal and anterior akinesia due to chronic CAD s/p CABG in 2012. GI bleed- H/H stable, multiple PRBCs recieved this admission EGD 05/23, push enteroscopy-05/24, 06/03 nonbleeding duodenal ulcer, Patrick Class IIc s/p epinephrine/APC CADIAC: * Hx of known mild-mod LV dysfunction EF 35-40% due to ischemic cardiomyopathy * Euvolemic at present * No active cardiac complaints * Lower extrem edema is improved: * CKD stage 3A chronic * No AFIB seen on any EKG or documented strips Optimize medical therapy with BB, JERROD-I or ARB, Statin and resume ASA or Plavix when safe from GI standpoint.
[2016-06-06] MEDS: Pantoprazole 80 MG in Sodium Chloride 0.9% 100 ML IVPB SCH ×2 (11:54→21:20)
[2016-06-06] MEDS: Brimonidine 0.2% Opth Sol (5ml) OU SCH ×2 (11:55→17:57)
[2016-06-06] MEDS: Dorzolamide 2% Opht Sol 10ml OU SCH ×2 (11:55→17:57)
[2016-06-06] MEDS: Fluconazole IV 100mg/50 ml NS 50 ML IVPB SCH (11:57)
[2016-06-06] MEDS: Nystatin 100,000 Units/gm Cream(15 gm) TOP SCH (11:57)
--- NOTE | 2016-06-06 11:58 | NM ---
PROCEDURE: Nuclear medicine gastrointestinal bleeding scan. HISTORY: melena COMPARISON: Comparison is made to the previous CT dated 06/02/2016. No prior nuclear medicine gastrointestinal bleeding scan available for comparison. TECHNIQUE: 16.3 millicurie of technetium 99 M ultra tagged RBC where injected intravenously. Images of the abdomen and pelvis were obtained in the anterior and posterior projection at 1 min intervals over a period of 45 min. FINDINGS: Abnormal extravasation of the tracer was observed at the left upper abdomen extending to the left abdomen and pelvis. Findings suspicious for active GI bleeding likely at the splenic flexure extending to the descending colon and rectum. Physiologic activity was seen in the heart, liver, spleen and blood vessels. IMPRESSION: Findings suggestive of active gastrointestinal bleeding likely at the large bowel splenic flexure that extending over the course of the exam to the descending colon. Preliminary report was submitted by [facility].
--- NOTE | 2016-06-06 17:33 | CP.CCUPN ---
<LowStaraleenaMarina - Last Filed: 06/06/16 18:09> CCU Objective - Vital Signs / Intake & Output Intake and Output (Last 8hrs): Intake & Output 06/06/16 06/06/16 06/06/16 06:59 14:59 22:59 Intake Total 720 540 Output Total 450 Balance 270 540 Weight 152 lb 5.431 oz Intake: IV 500 Intake, IV Amount 300 40 Right Distal Port PICC 200 40 Right Upper arm 50 Rt forearm #20 50 Oral 120 Blood Product 300 Output: Urine 450 Urethral (Cardenas) 450 Other: # Bowel Movements 1 - Medications Active Medications: Active Medications Generic Name Dose Route Start Last Admin Trade Name Freq PRN Reason Stop Dose Admin Fluconazole 50 mls @ 100 mls/hr 06/04/16 10:00 06/06/16 11:57 Diflucan Iv 100 Mg/50 Ml Ns IVPB 100 mls/hr DAILY LASHA Administration Dextrose/Sodium Chloride 1,000 mls @ 40 mls/hr 06/05/16 22:23 06/06/16 00:50 Dextrose 5%/0.9% Ns 1000 Ml IV 06/06/16 22:22 40 mls/hr .Q24H ONE Administration Pantoprazole Sodium 80 mg/ 100 mls @ 1,200 mls/hr 06/06/16 09:45 Sodium Chloride IVPB ONCE LASHA Pantoprazole Sodium 80 mg/ 100 mls @ 10 mls/hr 06/06/16 11:15 06/06/16 11:54 Sodium Chloride IVPB 10 mls/hr .Q10H LASHA Administration 8 MG/HR Insulin Aspart 0 unit 06/06/16 06:00 06/06/16 15:55 Novolog SC Not Given Q6H LASHA Protocol Latanoprost 0 ml 05/22/16 22:00 06/05/16 22:17 Xalatan Opht OU 2.5 ml HS LASHA Administration Potassium Phos/Sodium Phos 1 pkt 06/03/16 18:23 06/06/16 11:57 Neutra-Phos PO 06/11/16 18:01 Not Given TIDCC LASHA Tamsulosin HCl 0.4 mg 05/22/16 10:00 06/06/16 11:50 Flomax PO Not Given DAILY LASHA - Patient Studies Lab Studies: Microbiology Studies 06/04/16 21:35 MRSA Culture - Final Nose MRSA DETECTED Lab Studies 06/06/16 06/06/16 06/06/16 Range/Units 05:28 04:53 00:56 WBC 7.7 7.4 (4.8-10.8) K/uL RBC 3.26 L 3.33 L (4.40-5.90) Mil/uL Hgb 9.4 L 9.7 L (12.0-18.0) g/dL Hct 28.8 L 29.5 L (35.0-51.0) % MCV 88.2 88.6 (80.0-94.0) fL MCH 28.7 29.0 (27.0-31.0) pg MCHC 32.6 L 32.8 L (33.0-37.0) g/dL RDW 16.7 H 16.6 H (11.5-14.5) % Plt Count 101 L 100 L (130-400) K/uL MPV 8.9 8.7 (7.2-11.7) fL Neut % (Auto) 59.2 62.9 (50.0-75.0) % Lymph % (Auto) 32.3 30.0 (20.0-40.0) % [place] % (Auto) 7.1 5.9 (0.0-10.0) % Eos % (Auto) 1.1 0.9 (0.0-4.0) % Baso % (Auto) 0.3 0.3 (0.0-2.0) % Neut # 4.6 4.6 (1.8-7.0) K/uL Lymph # 2.5 2.2 (1.0-4.3) K/uL [place] # 0.5 0.4 (0.0-0.8) K/uL Eos # 0.1 0.1 (0.0-0.7) K/uL Baso # 0.0 0.0 (0.0-0.2) K/uL Sodium 141 (132-148) mmol/L Potassium 3.8 (3.6-5.2) mmol/L Chloride 115 H (98-107) mmol/L Carbon Dioxide 18 L (22-30) mmol/L Anion Gap 12 (10-20) BUN 17 (9-20) mg/dL Creatinine 1.2 (0.8-1.5) MG/DL Est GFR ( Amer) > 60 Est GFR (Non-Af Amer) 58 POC Glucose (mg/dL) 123 H (65-110) mg/dL Random Glucose 105 (75-110) mg/dL Calcium 7.0 L (8.6-10.4) mg/dl Phosphorus 2.2 L (2.5-4.5) mg/dL Magnesium 1.9 (1.6-2.3) mg/dL Total Bilirubin 0.2 (0.2-1.3) mg/dL AST 13 L (17-59) U/L ALT 14 L (21-72) U/L Alkaline Phosphatase 46 (38-126) U/L Total Protein 4.4 L (6.3-8.3) g/dL Albumin 1.8 L (3.5-5.0) g/dL Globulin 2.6 (2.2-3.9) gm/dL Albumin/Globulin Ratio 0.7 L (1.0-2.1) Blood Type Antibody Screen 06/05/16 06/05/16 06/05/16 Range/Units 21:11 19:52 13:25 WBC 6.5 (4.8-10.8) K/uL RBC 2.78 L (4.40-5.90) Mil/uL Hgb 8.2 L (12.0-18.0) g/dL Hct 24.7 L (35.0-51.0) % MCV 88.8 (80.0-94.0) fL MCH 29.4 (27.0-31.0) pg MCHC 33.1 (33.0-37.0) g/dL RDW 17.6 H (11.5-14.5) % Plt Count 96 L (130-400) K/uL MPV 8.8 (7.2-11.7) fL Neut % (Auto) (50.0-75.0) % Lymph % (Auto) (20.0-40.0) % [place] % (Auto) (0.0-10.0) % Eos % (Auto) (0.0-4.0) % Baso % (Auto) (0.0-2.0) % Neut # (1.8-7.0) K/uL Lymph # (1.0-4.3) K/uL [place] # (0.0-0.8) K/uL Eos # (0.0-0.7) K/uL Baso # (0.0-0.2) K/uL Sodium (132-148) mmol/L Potassium (3.6-5.2) mmol/L Chloride (98-107) mmol/L Carbon Dioxide (22-30) mmol/L Anion Gap (10-20) BUN (9-20) mg/dL Creatinine (0.8-1.5) MG/DL Est GFR ( Amer) Est GFR (Non-Af Amer) POC Glucose (mg/dL) 138 H (65-110) mg/dL Random Glucose (75-110) mg/dL Calcium (8.6-10.4) mg/dl Phosphorus (2.5-4.5) mg/dL Magnesium (1.6-2.3) mg/dL Total Bilirubin (0.2-1.3) mg/dL AST (17-59) U/L ALT (21-72) U/L Alkaline Phosphatase (38-126) U/L Total Protein (6.3-8.3) g/dL Albumin (3.5-5.0) g/dL Globulin (2.2-3.9) gm/dL Albumin/Globulin Ratio (1.0-2.1) Blood Type O POSITIVE Antibody Screen Negative Laboratory Results - last 24 hr 06/05/16 06/05/16 06/05/16 13:25 19:52 21:11 WBC 6.5 RBC 2.78 L Hgb 8.2 L Hct 24.7 L MCV 88.8 MCH 29.4 MCHC 33.1 RDW 17.6 H Plt Count 96 L MPV 8.8 Neut % (Auto) Lymph % (Auto) [place] % (Auto) Eos % (Auto) Baso % (Auto) Neut # Lymph # [place] # Eos # Baso # Sodium Potassium Chloride Carbon Dioxide Anion Gap BUN Creatinine Est GFR ( Amer) Est GFR (Non-Af Amer) POC Glucose (mg/dL) 138 H Random Glucose Calcium Phosphorus Magnesium Total Bilirubin AST ALT Alkaline Phosphatase Total Protein Albumin Globulin Albumin/Globulin Ratio Blood Type O POSITIVE Antibody Screen Negative 0306/06/16 06/06/16 00:56 04:53 05:28 WBC 7.4 7.7 RBC 3.33 L 3.26 L Hgb 9.7 L 9.4 L Hct 29.5 L 28.8 L MCV 88.6 88.2 MCH 29.0 28.7 MCHC 32.8 L 32.6 L RDW 16.6 H 16.7 H Plt Count 100 L 101 L MPV 8.7 8.9 Neut % (Auto) 62.9 59.2 Lymph % (Auto) 30.0 32.3 [place] % (Auto) 5.9 7.1 Eos % (Auto) 0.9 1.1 Baso % (Auto) 0.3 0.3 Neut # 4.6 4.6 Lymph # 2.2 2.5 [place] # 0.4 0.5 Eos # 0.1 0.1 Baso # 0.0 0.0 Sodium 141 Potassium 3.8 Chloride 115 H Carbon Dioxide 18 L Anion Gap 12 BUN 17 Creatinine 1.2 Est GFR ( Amer) > 60 Est GFR (Non-Af Amer) 58 POC Glucose (mg/dL) 123 H Random Glucose 105 Calcium 7.0 L Phosphorus 2.2 L Magnesium 1.9 Total Bilirubin 0.2 AST 13 L ALT 14 L Alkaline Phosphatase 46 Total Protein 4.4 L Albumin 1.8 L Globulin 2.6 Albumin/Globulin Ratio 0.7 L Blood Type Antibody Screen Critical Care Progress Note - Nutrition Nutrition: Nutrition Category Date Time Status NPO Diet [DIET] Diets 06/06/16 Breakfast Active Attending/Attestation - Attestation I have personally seen and examined this patient.: Yes I have fully participated in the care of the patient.: Yes I have reviewed all pertinent clinical information: Yes Notes (Text): 06/06/16 17:58 patient seen and examined in am, seen after emergent colonoscopy to stop the bleed. Ileocolonic anastomotic site with multiple ulcers and oozing of blood. Agressive injection of epinephrine. Informed surgery resident about the results , if further bleed occurs surgical removal of the site should be removed. htc stable, vs stable. <Supa Mclean - Last Filed: 06/06/16 21:03> CCU Subjective - Physician Review Subjective (Free Text): 05/23/16 18:00 Patient seen at beside with no acute issues. Patient had upper GI endoscopy today. Patient a bit lethargic afterwards with recommendations made.for diet advancement to clears once with improved mental status. ROS could not be obtained at the time due to somnolence. 05/26/16 14:47 Pt seen and examined in no acute distress. No significant events overnight per nursing. Patient somnolent at time of initial evaluation. Family present later on bedside. A ROS could not be obtained at this time due to somnolence. 05/27/16 07:32 Pt seen and examined in no acute distress. Patient more alert today and vocally responsive. Patient had an episode of melena this morning per nursing . Patient tolerating clears. Patient medically stable for transfer to telemetry floor. 06/03/16 15:32 Pt seen and examined with no acute events overnight per nursing. Patient had push enteroscopy today. He had large BM with melena afterwards. No complaints of headaches, subjective fevers or chills, nausea, vomiting, constipation, chest pain or palpitations at this time. 06/04/16 13:04 Pt seen and examined in no acute distress. Patient to have colonoscopy today. Pt resting comfortably in bed with no complaints at this time. He specifically denies weakness, headaches, subjective fevers or chills, nausea, vomiting, constipation, chest pain or palpitations at this time. 06/06/16 20:58 Patient seen at [facility] in no acute distress. Patient was readmitted to the ICU for subsequent hematochezia. Patient had urgent colonoscopy by GI due to findings on the bleeding scan. Patient is s/p colonoscopy with epinephrine and cautery to ulcerated sites at ileocolonic anastamosis. Pt tolerated procedure well. 06/06/16 20:59 CCU Objective - Vital Signs / Intake & Output Intake and Output (Last 8hrs): Intake & Output 06/06/16 06/06/16 06/06/16 06:59 14:59 22:59 Intake Total 720 540 Output Total 450 Balance 270 540 Weight 152 lb 5.431 oz Intake: IV 500 Intake, IV Amount 300 40 Right Distal Port PICC 200 40 Right Upper arm 50 Rt forearm #20 50 Oral 120 Blood Product 300 Output: Urine 450 Urethral (Cardenas) 450 Other: # Bowel Movements 1 - Physical Exam Head: Positive for: Atraumatic, Normocephalic Pupils: Positive for: PERRL Extroacular Muscles: Positive for: EOMI Conjunctiva: Positive for: Normal Mouth: Positive for: Moist Mucous Membranes Neck: Positive for: Normal Range of Motion Respiratory/Chest: Positive for: Clear to Auscultation, Good Air Exchange. Negative for: Wheezes Cardiovascular: Positive for: Normal S1, S2 Abdomen: Positive for: Tenderness, Normal Bowel Sounds. Negative for: Peritoneal Signs Back: Positive for: Normal Inspection Upper Extremity: Positive for: Normal Inspection Lower Extremity: Positive for: Normal Inspection Neurological: Positive for: CN II-XII Intact Skin: Positive for: Warm, Dry Psychiatric: Positive for: Lethargic - Medications Active Medications: Active Medications Generic Name Dose Route Start Last Admin Trade Name Freq PRN Reason Stop Dose Admin Fluconazole 50 mls @ 100 mls/hr 06/04/16 10:00 06/06/16 11:57 Diflucan Iv 100 Mg/50 Ml Ns IVPB 100 mls/hr DAILY LASHA Administration Dextrose/Sodium Chloride 1,000 mls @ 40 mls/hr 06/05/16 22:23 06/06/16 00:50 Dextrose 5%/0.9% Ns 1000 Ml IV 06/06/16 22:22 40 mls/hr .Q24H ONE Administration Pantoprazole Sodium 80 mg/ 100 mls @ 1,200 mls/hr 06/06/16 09:45 Sodium Chloride IVPB ONCE LASHA Pantoprazole Sodium 80 mg/ 100 mls @ 10 mls/hr 06/06/16 11:15 06/06/16 11:54 Sodium Chloride IVPB 10 mls/hr .Q10H LASHA Administration 8 MG/HR Insulin Aspart 0 unit 06/06/16 06:00 06/06/16 15:55 Novolog SC Not Given Q6H LASHA Protocol Latanoprost 0 ml 05/22/16 22:00 06/05/16 22:17 Xalatan Opht OU 2.5 ml HS LASHA Administration Potassium Phos/Sodium Phos 1 pkt 06/03/16 18:23 06/06/16 11:57 Neutra-Phos PO 06/11/16 18:01 Not Given TIDCC LASHA Tamsulosin HCl 0.4 mg 05/22/16 10:00 06/06/16 11:50 Flomax PO Not Given DAILY LASHA - Patient Studies Lab Studies: Microbiology Studies 06/04/16 21:35 MRSA Culture - Final Nose MRSA DETECTED Lab Studies 06/06/16 06/06/16 06/06/16 Range/Units 05:28 04:53 00:56 WBC 7.7 7.4 (4.8-10.8) K/uL RBC 3.26 L 3.33 L (4.40-5.90) Mil/uL Hgb 9.4 L 9.7 L (12.0-18.0) g/dL Hct 28.8 L 29.5 L (35.0-51.0) % MCV 88.2 88.6 (80.0-94.0) fL MCH 28.7 29.0 (27.0-31.0) pg MCHC 32.6 L 32.8 L (33.0-37.0) g/dL RDW 16.7 H 16.6 H (11.5-14.5) % Plt Count 101 L 100 L (130-400) K/uL MPV 8.9 8.7 (7.2-11.7) fL Neut % (Auto) 59.2 62.9 (50.0-75.0) % Lymph % (Auto) 32.3 30.0 (20.0-40.0) % [place] % (Auto) 7.1 5.9 (0.0-10.0) % Eos % (Auto) 1.1 0.9 (0.0-4.0) % Baso % (Auto) 0.3 0.3 (0.0-2.0) % Neut # 4.6 4.6 (1.8-7.0) K/uL Lymph # 2.5 2.2 (1.0-4.3) K/uL [place] # 0.5 0.4 (0.0-0.8) K/uL Eos # 0.1 0.1 (0.0-0.7) K/uL Baso # 0.0 0.0 (0.0-0.2) K/uL Sodium 141 (132-148) mmol/L Potassium 3.8 (3.6-5.2) mmol/L Chloride 115 H (98-107) mmol/L Carbon Dioxide 18 L (22-30) mmol/L Anion Gap 12 (10-20) BUN 17 (9-20) mg/dL Creatinine 1.2 (0.8-1.5) MG/DL Est GFR ( Amer) > 60 Est GFR (Non-Af Amer) 58 POC Glucose (mg/dL) 123 H (65-110) mg/dL Random Glucose 105 (75-110) mg/dL Calcium 7.0 L (8.6-10.4) mg/dl Phosphorus 2.2 L (2.5-4.5) mg/dL Magnesium 1.9 (1.6-2.3) mg/dL Total Bilirubin 0.2 (0.2-1.3) mg/dL AST 13 L (17-59) U/L ALT 14 L (21-72) U/L Alkaline Phosphatase 46 (38-126) U/L Total Protein 4.4 L (6.3-8.3) g/dL Albumin 1.8 L (3.5-5.0) g/dL Globulin 2.6 (2.2-3.9) gm/dL Albumin/Globulin Ratio 0.7 L (1.0-2.1) Blood Type Antibody Screen 06/05/16 06/05/16 06/05/16 Range/Units 21:11 19:52 13:25 WBC 6.5 (4.8-10.8) K/uL RBC 2.78 L (4.40-5.90) Mil/uL Hgb 8.2 L (12.0-18.0) g/dL Hct 24.7 L (35.0-51.0) % MCV 88.8 (80.0-94.0) fL MCH 29.4 (27.0-31.0) pg MCHC 33.1 (33.0-37.0) g/dL RDW 17.6 H (11.5-14.5) % Plt Count 96 L (130-400) K/uL MPV 8.8 (7.2-11.7) fL Neut % (Auto) (50.0-75.0) % Lymph % (Auto) (20.0-40.0) % [place] % (Auto) (0.0-10.0) % Eos % (Auto) (0.0-4.0) % Baso % (Auto) (0.0-2.0) % Neut # (1.8-7.0) K/uL Lymph # (1.0-4.3) K/uL [place] # (0.0-0.8) K/uL Eos # (0.0-0.7) K/uL Baso # (0.0-0.2) K/uL Sodium (132-148) mmol/L Potassium (3.6-5.2) mmol/L Chloride (98-107) mmol/L Carbon Dioxide (22-30) mmol/L Anion Gap (10-20) BUN (9-20) mg/dL Creatinine (0.8-1.5) MG/DL Est GFR ( Amer) Est GFR (Non-Af Amer) POC Glucose (mg/dL) 138 H (65-110) mg/dL Random Glucose (75-110) mg/dL Calcium (8.6-10.4) mg/dl Phosphorus (2.5-4.5) mg/dL Magnesium (1.6-2.3) mg/dL Total Bilirubin (0.2-1.3) mg/dL AST (17-59) U/L ALT (21-72) U/L Alkaline Phosphatase (38-126) U/L Total Protein (6.3-8.3) g/dL Albumin (3.5-5.0) g/dL Globulin (2.2-3.9) gm/dL Albumin/Globulin Ratio (1.0-2.1) Blood Type O POSITIVE Antibody Screen Negative Laboratory Results - last 24 hr 06/05/16 06/05/16 06/05/16 13:25 19:52 21:11 WBC 6.5 RBC 2.78 L Hgb 8.2 L Hct 24.7 L MCV 88.8 MCH 29.4 MCHC 33.1 RDW 17.6 H Plt Count 96 L MPV 8.8 Neut % (Auto) Lymph % (Auto) [place] % (Auto) Eos % (Auto) Baso % (Auto) Neut # Lymph # [place] # Eos # Baso # Sodium Potassium Chloride Carbon Dioxide Anion Gap BUN Creatinine Est GFR ( Amer) Est GFR (Non-Af Amer) POC Glucose (mg/dL) 138 H Random Glucose Calcium Phosphorus Magnesium Total Bilirubin AST ALT Alkaline Phosphatase Total Protein Albumin Globulin Albumin/Globulin Ratio Blood Type O POSITIVE Antibody Screen Negative 06/06/16 06/06/16 06/06/16 00:56 04:53 05:28 WBC 7.4 7.7 RBC 3.33 L 3.26 L Hgb 9.7 L 9.4 L Hct 29.5 L 28.8 L MCV 88.6 88.2 MCH 29.0 28.7 MCHC 32.8 L 32.6 L RDW 16.6 H 16.7 H Plt Count 100 L 101 L MPV 8.7 8.9 Neut % (Auto) 62.9 59.2 Lymph % (Auto) 30.0 32.3 [place] % (Auto) 5.9 7.1 Eos % (Auto) 0.9 1.1 Baso % (Auto) 0.3 0.3 Neut # 4.6 4.6 Lymph # 2.2 2.5 [place] # 0.4 0.5 Eos # 0.1 0.1 Baso # 0.0 0.0 Sodium 141 Potassium 3.8 Chloride 115 H Carbon Dioxide 18 L Anion Gap 12 BUN 17 Creatinine 1.2 Est GFR ( Amer) > 60 Est GFR (Non-Af Amer) 58 POC Glucose (mg/dL) 123 H Random Glucose 105 Calcium 7.0 L Phosphorus 2.2 L Magnesium 1.9 Total Bilirubin 0.2 AST 13 L ALT 14 L Alkaline Phosphatase 46 Total Protein 4.4 L Albumin 1.8 L Globulin 2.6 Albumin/Globulin Ratio 0.7 L Blood Type Antibody Screen Fingerstick Blood Sugar Results: 123 Review of Systems - Review of Systems Systems not reviewed;Unavailable: Intubated - Cardiovascular Cardiovascular: absent: Chest Pain, Chest Pain at Rest - Respiratory Respiratory: absent: Dyspnea, Hemoptysis - Gastrointestinal Gastrointestinal: Hematochezia. absent: Vomiting - Musculoskeletal Musculoskeletal: Arthralgias - Integumentary Integumentary: absent: Striae, Swelling Critical Care Progress Note - Nutrition Nutrition: Nutrition Category Date Time Status NPO Diet [DIET] Diets 06/06/16 Breakfast Active Assessment/Plan - Assessment and Plan (Free Text) Assessment: 85 M with a past medical history of anemia, [place] complicated by CAD s/p 3 vessel CABG, moderate aortic stenosis, hypertension, hyperlipidemia presented with hypotension, weakness, and blood in the stool 05/22. Pt readmitted to ICU for episodes of significant hematochezia overnight. Patient is s/p colonoscopy with epinephrine and cautery to ulcerated sites at ileocolonic anastamosis. Plan: Plan Neuro: Neurochecks q 6 Optho: Latanoprost OU HS LASHA Dorzolamide OU TID LASHA Brimonidine OU TID LASHA Cardio: Maintain SBP >110 Maintain HR 60-100 bpm Pulm: Maintain O2 saturation >92% 06/06 CXR biapical pleural thickening with upper lobe granulomatous changes. chronic interstitial lung markings. bilateral hilar prominence. patchy left basilar airspace opacity with questionable small left pleural effusion Tamsulosin 0.4 mg PO daily Endo: Diabetes Sliding scale - Novolog Acchucheck q6 Maintain Euglycemia GI: Diet : NPO AST/ALT: Albumin 1.8 Total Protein: 4.4 06/03 EGD: 2 cm hiatal hernia present. one large non-bleeding ulcer with clean ulcer base Class III found at duodenal bulb spanning duodenal sweep. improved compared to prior examination without any stigmata of recent bleeding. 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 Post-op diagnosis: marah esophagitis, duodenal ulcer, gastritis, hiatal hernia. Daily CMP 06/04 Colonoscopy: no active bleed, hemorrhoids, ulcerated mucosa at anastamosis site f/u EGD biopsy 06/05 GI Bleeding scan: findings suggestive of active GI bleeding likely at large bowel splenic flexure that extends to the descending colon. 06/06 Colonoscopy - per GI - 15 cc of epinephrine 0.1 mg/ml injections at ulcerated ileocolonic anastomotic site along with electro cautery for hemostasis. : 1975/750 = 1225 Monitor I/Os Renal: BUN/Cr: 17/1.2 Monitor I/Os Daily CMP Hypophosphatemia - repleted Heme: H&H 9.4/28.8 (8.8/27.2 > 9.0/27.4 > 8.2/24.8 > 9.7/29.5 > 9.4/28.8) Monitor 06/02 INR 1.2 06/02 PT 12.8 Daily CBC MSK: PT/OT eval ID: sacral wound WBC 9.5 (9.9>11.1>11.7>12.3>9.5) MRSA positive nares Daily CBC Nystatin TOP TID LASHA fluconazole 100mg/50 ml NS 50 cc @ 100 cc/hr Prophylaxis: DVT: SCDs GI: Pantoprazole 80 mg 100 cc @ 10 cc/hr IVPB Q5H6M Once
[2016-06-06] MEDS: Latanoprost 2.5 ml Opht Soln OU SCH (22:54)
[2016-06-07] MEDS: (Novolog) Insulin Aspart, Recombinant 100 u/ml 10 ml vial SC SCH ×4 (06:00→18:36)
--- NOTE | 2016-06-07 06:58 | CP.PCM.PN ---
<Denae Chakraborty - Last Filed: 06/07/16 09:24> Subjective - Date & Time of Evaluation Date of Evaluation: 06/07/16 Time of Evaluation: 06:59 - Subjective Subjective: Gastroenterology Fellow/PGY4 Progress Note Patient denies abdominal pain. Nursing notes small amount of hematochezia overnight. A 12-point review of systems negative except for as above. Objective - Vital Signs/Intake and Output Vital Signs (last 24 hours): Temp Pulse Resp BP Pulse Ox 98.3 F 73 10 L 100/55 L 100 06/07/16 00:00 06/07/16 02:00 06/07/16 01:03 06/07/16 02:00 06/07/16 02:00 Intake and Output: 06/06/16 06/07/16 18:59 06:59 Intake Total 1370 450 Output Total 430 430 Balance 940 20 - Medications Medications: Current Medications Fluconazole (Diflucan Iv 100 Mg/50 Ml Ns) 50 mls @ 100 mls/hr IVPB DAILY [facility] Last Admin: 06/06/16 11:57 Dose: 100 mls/hr Pantoprazole Sodium 80 mg/ (Sodium Chloride) 100 mls @ 10 mls/hr IVPB .Q10H LASHA PRN Reason: 8 MG/HR Last Admin: 06/06/16 21:20 Dose: 10 mls/hr Insulin Aspart (Novolog) 0 unit SC Q6H LASHA PRN Reason: Protocol Last Admin: 06/07/16 00:00 Dose: Not Given Latanoprost (Xalatan Opht) 0 ml OU HS [facility] Last Admin: 06/06/16 22:54 Dose: 2.5 ml Potassium Phos/Sodium Phos (Neutra-Phos) 1 pkt PO TIDCC [facility] Stop: 06/11/16 18:01 Last Admin: 06/06/16 19:54 Dose: Not Given Tamsulosin HCl (Flomax) 0.4 mg PO DAILY [facility] Last Admin: 06/06/16 11:50 Dose: Not Given - Labs Labs: 06/06/16 04:53 06/06/16 04:53 PT 12.8 SECONDS (9.7-12.2) H 06/02/16 09:21 INR 1.2 06/02/16 09:21 APTT 31 SECONDS (21-34) 05/28/16 06:30 - Constitutional Appears: Non-toxic, No Acute Distress - Head Exam Head Exam: ATRAUMATIC, NORMOCEPHALIC - Eye Exam Eye Exam: EOMI, PERRL Pupil Exam: PERRL. absent: Miosis, Mydriatic - ENT Exam ENT Exam: Mucous Membranes Moist, Normal Oropharynx - Respiratory Exam Respiratory Exam: Clear to Ausculation Bilateral. absent: Rales, Rhonchi, Wheezes - Cardiovascular Exam Cardiovascular Exam: RRR, +S1, +S2. absent: Gallop, Rubs - GI/Abdominal Exam GI & Abdominal Exam: Soft, Normal Bowel Sounds. absent: Distended, Firm, Guarding, Rigid, Tenderness, Organomegaly, Rebound - Extremities Exam Extremities Exam: Full ROM. absent: Pedal Edema - Neurological Exam Neurological Exam: Alert, Awake - Psychiatric Exam Psychiatric exam: Normal Affect, Normal Mood - Skin Skin Exam: Dry, Intact, Normal Color, Warm Assessment and Plan - Assessment and Plan (Free Text) Assessment: 85 year old male with history of [place] complicated by CAD s/p 3 vessel CABG 2012 previously on Plavix, stopped since last dischage 04/2016, moderate aortic stenosis, ischemic cardiomyopathy 35-40%, CKD Stage 3, Hypertension, Hyperlipidemia presenting with weakness and blood in stool from nursing facility. Acute blood loss anemia 2/2 melena/maroon stools requiring multiple transfusions >EGD 05/23, push enteroscopy-05/24, 06/03 nonbleeding duodenal ulcer, Patrick Class IIc s/p epinephrine/APC >flexible sigmoidoscopy 05/30 and colonoscopy 06/04 inflammation of ileocolonic anastamosis, no active bleeding, hemorrhoids Plan: >POD1 emergent colonoscopy after stat bleeding confirmed active colonic bleed -active bleeding of ileocolonic anastomotic ulcers -hemostasis achieved with 16cc epinephrine injection and BiPolar cautery >surgery following >monitor H/H >continue PPI daily >advance to full liquid diet >continue Fluconazole- marah esophagitis >recommend surgical intervention if recurrent GI blood loss <Jesse Davenport - Last Filed: 06/07/16 09:31> Objective - Vital Signs/Intake and Output Vital Signs (last 24 hours): Temp Pulse Resp BP Pulse Ox 97.6 F 71 11 L 123/63 100 06/07/16 04:00 06/07/16 08:03 06/07/16 08:03 06/07/16 08:03 06/07/16 08:03 Intake and Output: 06/07/16 06/07/16 06:59 18:59 Intake Total 660 50 Output Total 620 50 Balance 40 0 - Medications Medications: Current Medications Fluconazole (Diflucan Iv 100 Mg/50 Ml Ns) 50 mls @ 100 mls/hr IVPB DAILY [facility] Last Admin: 06/06/16 11:57 Dose: 100 mls/hr Insulin Aspart (Novolog) 0 unit SC Q6H [facility] PRN Reason: Protocol Last Admin: 06/07/16 06:00 Dose: Not Given Latanoprost (Xalatan Opht) 0 ml OU HS [facility] Last Admin: 06/06/16 22:54 Dose: 2.5 ml Pantoprazole Sodium (Protonix Inj) 40 mg IVP DAILY [facility] Potassium Phos/Sodium Phos (Neutra-Phos) 1 pkt PO TIDCC [facility] Stop: 06/11/16 18:01 Last Admin: 06/06/16 19:54 Dose: Not Given Tamsulosin HCl (Flomax) 0.4 mg PO DAILY [facility] Last Admin: 06/06/16 11:50 Dose: Not Given - Labs Labs: 06/07/16 07:04 06/07/16 07:04 PT 12.8 SECONDS (9.7-12.2) H 06/02/16 09:21 INR 1.2 06/02/16 09:21 APTT 31 SECONDS (21-34) 05/28/16 06:30 Attending/Attestation - Attestation I have personally seen and examined this patient.: Yes I have fully participated in the care of the patient.: Yes I have reviewed all pertinent clinical information, including history, physical exam and plan: Yes Notes (Text): 06/07/16 09:27 I have seen and examined patient with GI fellow. No acute events overnight, one small maroon colored stool reported by nursing staff. Patient denies abdominal pain, nausea, vomiting. Review of vitals from today are normal. CAD/CABG Ischemic cardiomyopathy CKD HTN GI bleeding, duodenal ulcer. Recurrent lower GI bleeding with bleeding scan positive localized to transverse colon. S/p colonoscopy with ulcerated mucosa at surgical anastomosis s/p injection and bicap therapy - Clear liquid diet as tolerated - Continue to monitor H/H, transfuse as necessary - Continue with PPI therapy - If recurrent bleeding noted, would suggest surgical intervention. Patient with multiple endoscopic procedures, no further role in treatment. Will continue to monitor patient clinical course.
[2016-06-07 07:13] LABS: BASO % 0.4 % (0.0-2.0); EOS # 0.1 K/uL (0.0-0.7); EOS % 1.5 % (0.0-4.0); HEMATOCRIT 24.3 % (35.0-51.0); LYMPH # 1.8 K/uL (1.0-4.3); LYMPH % 29.1 % (20.0-40.0); MEAN CELL VOLUME 88.1 fL (80.0-94.0); MEAN CORPUSCULAR HEMOGLOBIN 29.1 pg (27.0-31.0); MEAN PLATELET VOLUME 8.4 fL (7.2-11.7); MONO # 0.4 K/uL (0.0-0.8); MONO % 6.6 % (0.0-10.0); RED CELL DISTRIBUTION WIDTH 16.9 % (11.5-14.5); WHITE BLOOD COUNT 6.2 K/uL (4.8-10.8)
[2016-06-07] MEDS: Pantoprazole 80 MG in Sodium Chloride 0.9% 100 ML IVPB SCH (07:20)
[2016-06-07 08:29] LABS: CHLORIDE 115 mmol/L (98-107)
[2016-06-07 08:30] LABS: POTASSIUM 3.1 mmol/L (3.6-5.2); SODIUM 142 mmol/L (132-148)
[2016-06-07 08:32] LABS: ALB/GLOB RATIO 0.6 (1.0-2.1); ALKALINE PHOSPHATASE 41 U/L (38-126); ALT/SGPT 13 U/L (21-72); AST/SGOT 13 U/L (17-59); BILIRUBIN,TOTAL < 0.1 mg/dL (0.2-1.3); BLOOD UREA NITROGEN 14 mg/dL (9-20); CARBON DIOXIDE 18 mmol/L (22-30); GFR AFRICAN-AMERICAN > 60; GLUCOSE,RANDOM 185 mg/dL (75-110); PHOSPHOROUS 2.4 mg/dL (2.5-4.5); TOTAL PROTEIN 3.9 g/dL (6.3-8.3)
[2016-06-07 08:33] LABS: CALCIUM 6.5 mg/dl (8.6-10.4); MAGNESIUM 1.7 mg/dL (1.6-2.3)
[2016-06-07] MEDS: Fluconazole IV 100mg/50 ml NS 50 ML IVPB SCH (11:01)
[2016-06-07] MEDS: Potassium & Sodium Phosphate PO SCH ×3 (11:02→17:25)
[2016-06-07 13:02] LABS: HEMATOCRIT 25.1 % (35.0-51.0)
[2016-06-07] MEDS ORDERED: Potassium Phosphate 15 MMOLE in Sodium Chloride 0.9% 250 ML IVPB ONE (13:25)
--- NOTE | 2016-06-07 14:50 | CP.CCUPN ---
CCU Subjective - Physician Review Events Since Last Encounter (Free Text): 06/07/16 14:45 Patient seen and examined in the intensive care unit. Case discussed with house staff in the morning rounds. Hemodynamically stable with small amount of bleeding last night in no acute distress CCU Objective - Vital Signs / Intake & Output Intake and Output (Last 8hrs): Intake & Output 06/06/16 06/07/16 06/07/16 22:59 06:59 14:59 Intake Total 600 460 50 Output Total 315 465 50 Balance 285 -5 0 Weight 151 lb 8 oz Intake: Intake, IV Amount 600 400 50 Right Distal Port PICC 520 320 40 Right Medial Port PICC 80 80 10 Oral 0 60 0 Output: Urine 315 465 50 Urethral (Cardenas) 315 465 50 - Physical Exam Head: Positive for: Atraumatic, Normocephalic Pupils: Positive for: PERRL Extroacular Muscles: Positive for: EOMI Conjunctiva: Positive for: Normal Mouth: Positive for: Moist Mucous Membranes Neck: Positive for: Normal Range of Motion Respiratory/Chest: Positive for: Clear to Auscultation, Good Air Exchange. Negative for: Wheezes Cardiovascular: Positive for: Normal S1, S2 Abdomen: Positive for: Tenderness, Normal Bowel Sounds. Negative for: Peritoneal Signs Back: Positive for: Normal Inspection Upper Extremity: Positive for: Normal Inspection Lower Extremity: Positive for: Normal Inspection Neurological: Positive for: CN II-XII Intact Skin: Positive for: Warm, Dry Psychiatric: Positive for: Lethargic - Medications Active Medications: Active Medications Generic Name Dose Route Start Last Admin Trade Name Freq PRN Reason Stop Dose Admin Fluconazole 50 mls @ 100 mls/hr 06/04/16 10:00 06/07/16 11:01 Diflucan Iv 100 Mg/50 Ml Ns IVPB 100 mls/hr DAILY LASHA Administration Potassium Phosphate 15 mmole/ 255 mls @ 42.5 mls/hr 06/07/16 13:25 06/07/16 14: 35 Sodium Chloride IVPB 06/07/16 19:24 42.5 mls/hr ONCE ONE Administration Insulin Aspart 0 unit 06/06/16 06:00 06/07/16 12:43 Novolog SC 2 unit Q6H LASHA Administration Protocol Latanoprost 0 ml 05/22/16 22:00 06/06/16 22:54 Xalatan Opht OU 2.5 ml HS LASHA Administration Pantoprazole Sodium 40 mg 06/07/16 10:00 06/07/16 11:00 Protonix Inj IVP 40 mg DAILY LASHA Administration Potassium Phos/Sodium Phos 1 pkt 06/03/16 18:23 06/07/16 12:44 Neutra-Phos PO 06/11/16 18:01 1 pkt TIDCC LASHA Administration Tamsulosin HCl 0.4 mg 05/22/16 10:00 06/07/16 11:02 Flomax PO 0.4 mg DAILY LASHA Administration - Patient Studies Lab Studies: Microbiology Studies 06/06/16 04:01 MRSA Culture (Admit) - Final Naris MRSA DETECTED 06/04/16 21:35 MRSA Culture - Final Nose MRSA DETECTED Lab Studies 06/07/16 06/07/16 06/07/16 Range/Units 12:55 11:59 07:07 WBC (4.8-10.8) K/uL RBC (4.40-5.90) Mil/uL Hgb 8.1 L (12.0-18.0) g/dL Hct 25.1 L (35.0-51.0) % MCV (80.0-94.0) fL MCH (27.0-31.0) pg MCHC (33.0-37.0) g/dL RDW (11.5-14.5) % Plt Count (130-400) K/uL MPV (7.2-11.7) fL Neut % (Auto) (50.0-75.0) % Lymph % (Auto) (20.0-40.0) % [place] % (Auto) (0.0-10.0) % Eos % (Auto) (0.0-4.0) % Baso % (Auto) (0.0-2.0) % Neut # (1.8-7.0) K/uL Lymph # (1.0-4.3) K/uL [place] # (0.0-0.8) K/uL Eos # (0.0-0.7) K/uL Baso # (0.0-0.2) K/uL Differential Comment Sodium (132-148) mmol/L Potassium (3.6-5.2) mmol/L Chloride (98-107) mmol/L Carbon Dioxide (22-30) mmol/L Anion Gap (10-20) BUN (9-20) mg/dL Creatinine (0.8-1.5) MG/DL Est GFR ( Amer) Est GFR (Non-Af Amer) POC Glucose (mg/dL) 186 H 127 H (65-110) mg/dL Random Glucose (75-110) mg/dL Calcium (8.6-10.4) mg/dl Phosphorus (2.5-4.5) mg/dL Magnesium (1.6-2.3) mg/dL Total Bilirubin (0.2-1.3) mg/dL AST (17-59) U/L ALT (21-72) U/L Alkaline Phosphatase (38-126) U/L Total Protein (6.3-8.3) g/dL Albumin (3.5-5.0) g/dL Globulin (2.2-3.9) gm/dL Albumin/Globulin Ratio (1.0-2.1) 06/07/16 06/07/16 06/06/16 Range/Units 07:04 00:39 23:13 WBC 6.2 (4.8-10.8) K/uL RBC 2.76 L (4.40-5.90) Mil/uL Hgb 8.0 L (12.0-18.0) g/dL Hct 24.3 L (35.0-51.0) % MCV 88.1 (80.0-94.0) fL MCH 29.1 (27.0-31.0) pg MCHC 33.0 (33.0-37.0) g/dL RDW 16.9 H (11.5-14.5) % Plt Count 109 L (130-400) K/uL MPV 8.4 (7.2-11.7) fL Neut % (Auto) 62.4 (50.0-75.0) % Lymph % (Auto) 29.1 (20.0-40.0) % [place] % (Auto) 6.6 (0.0-10.0) % Eos % (Auto) 1.5 (0.0-4.0) % Baso % (Auto) 0.4 (0.0-2.0) % Neut # 3.9 (1.8-7.0) K/uL Lymph # 1.8 (1.0-4.3) K/uL [place] # 0.4 (0.0-0.8) K/uL Eos # 0.1 (0.0-0.7) K/uL Baso # 0.0 (0.0-0.2) K/uL Differential Comment Sodium 142 (132-148) mmol/L Potassium 3.1 L (3.6-5.2) mmol/L Chloride 115 H (98-107) mmol/L Carbon Dioxide 18 L (22-30) mmol/L Anion Gap 12 (10-20) BUN 14 (9-20) mg/dL Creatinine 1.2 (0.8-1.5) MG/DL Est GFR ( Amer) > 60 Est GFR (Non-Af Amer) 58 POC Glucose (mg/dL) 115 H 119 H (65-110) mg/dL Random Glucose 185 H (75-110) mg/dL Calcium 6.5 L (8.6-10.4) mg/dl Phosphorus 2.4 L (2.5-4.5) mg/dL Magnesium 1.7 (1.6-2.3) mg/dL Total Bilirubin < 0.1 L (0.2-1.3) mg/dL AST 13 L (17-59) U/L ALT 13 L (21-72) U/L Alkaline Phosphatase 41 (38-126) U/L Total Protein 3.9 L (6.3-8.3) g/dL Albumin 1.5 L (3.5-5.0) g/dL Globulin 2.4 (2.2-3.9) gm/dL Albumin/Globulin Ratio 0.6 L (1.0-2.1) 06/06/16 Range/Units 17:57 WBC (4.8-10.8) K/uL RBC (4.40-5.90) Mil/uL Hgb (12.0-18.0) g/dL Hct (35.0-51.0) % MCV (80.0-94.0) fL MCH (27.0-31.0) pg MCHC (33.0-37.0) g/dL RDW (11.5-14.5) % Plt Count (130-400) K/uL MPV (7.2-11.7) fL Neut % (Auto) (50.0-75.0) % Lymph % (Auto) (20.0-40.0) % [place] % (Auto) (0.0-10.0) % Eos % (Auto) (0.0-4.0) % Baso % (Auto) (0.0-2.0) % Neut # (1.8-7.0) K/uL Lymph # (1.0-4.3) K/uL [place] # (0.0-0.8) K/uL Eos # (0.0-0.7) K/uL Baso # (0.0-0.2) K/uL Differential Comment Sodium (132-148) mmol/L Potassium (3.6-5.2) mmol/L Chloride (98-107) mmol/L Carbon Dioxide (22-30) mmol/L Anion Gap (10-20) BUN (9-20) mg/dL Creatinine (0.8-1.5) MG/DL Est GFR ( Amer) Est GFR (Non-Af Amer) POC Glucose (mg/dL) 115 H (65-110) mg/dL Random Glucose (75-110) mg/dL Calcium (8.6-10.4) mg/dl Phosphorus (2.5-4.5) mg/dL Magnesium (1.6-2.3) mg/dL Total Bilirubin (0.2-1.3) mg/dL AST (17-59) U/L ALT (21-72) U/L Alkaline Phosphatase (38-126) U/L Total Protein (6.3-8.3) g/dL Albumin (3.5-5.0) g/dL Globulin (2.2-3.9) gm/dL Albumin/Globulin Ratio (1.0-2.1) Laboratory Results - last 24 hr 06/06/16 06/06/16 06/07/16 17:57 23:13 00:39 WBC RBC Hgb Hct MCV MCH MCHC RDW Plt Count MPV Neut % (Auto) Lymph % (Auto) [place] % (Auto) Eos % (Auto) Baso % (Auto) Neut # Lymph # [place] # Eos # Baso # Differential Comment Sodium Potassium Chloride Carbon Dioxide Anion Gap BUN Creatinine Est GFR ( Amer) Est GFR (Non-Af Amer) POC Glucose (mg/dL) 115 H 119 H 115 H Random Glucose Calcium Phosphorus Magnesium Total Bilirubin AST ALT Alkaline Phosphatase Total Protein Albumin Globulin Albumin/Globulin Ratio 06/07/16 06/07/16 06/07/16 07:04 07:07 11:59 WBC 6.2 RBC 2.76 L Hgb 8.0 L Hct 24.3 L MCV 88.1 MCH 29.1 MCHC 33.0 RDW 16.9 H Plt Count 109 L MPV 8.4 Neut % (Auto) 62.4 Lymph % (Auto) 29.1 [place] % (Auto) 6.6 Eos % (Auto) 1.5 Baso % (Auto) 0.4 Neut # 3.9 Lymph # 1.8 [place] # 0.4 Eos # 0.1 Baso # 0.0 Differential Comment Sodium 142 Potassium 3.1 L Chloride 115 H Carbon Dioxide 18 L Anion Gap 12 BUN 14 Creatinine 1.2 Est GFR ( Amer) > 60 Est GFR (Non-Af Amer) 58 POC Glucose (mg/dL) 127 H 186 H Random Glucose 185 H Calcium 6.5 L Phosphorus 2.4 L Magnesium 1.7 Total Bilirubin < 0.1 L AST 13 L ALT 13 L Alkaline Phosphatase 41 Total Protein 3.9 L Albumin 1.5 L Globulin 2.4 Albumin/Globulin Ratio 0.6 L 06/07/16 12:55 WBC RBC Hgb 8.1 L Hct 25.1 L MCV MCH MCHC RDW Plt Count MPV Neut % (Auto) Lymph % (Auto) [place] % (Auto) Eos % (Auto) Baso % (Auto) Neut # Lymph # [place] # Eos # Baso # Differential Comment Sodium Potassium Chloride Carbon Dioxide Anion Gap BUN Creatinine Est GFR ( Amer) Est GFR (Non-Af Amer) POC Glucose (mg/dL) Random Glucose Calcium Phosphorus Magnesium Total Bilirubin AST ALT Alkaline Phosphatase Total Protein Albumin Globulin Albumin/Globulin Ratio Lab Interpretations (Free Text): 06/07/16 14:50 Fingerstick Blood Sugar Results: 115 Critical Care Progress Note - Ventilator Checklist Head of Bed 30 Degrees: Yes - Nutrition Nutrition: Nutrition Category Date Time Status Liquid Diet [DIET] Diets 06/07/16 Breakfast Active Assessment/Plan (1) Gastrointestinal hemorrhage Current Visit: Yes Status: Acute Comment: Follow-up CBC and transfuse if necessary Surgical intervention if bleeding continues Case discussed with GI and surgery Continue Protonix (2) Anemia Current Visit: No Status: Acute
--- NOTE | 2016-06-07 14:51 | CP.PCM.PN ---
Subjective - Date & Time of Evaluation Date of Evaluation: 06/07/16 Time of Evaluation: 01:00 - Subjective Subjective: clinically same Objective - Vital Signs/Intake and Output Vital Signs (last 24 hours): Temp Pulse Resp BP Pulse Ox 97.6 F 71 11 L 123/63 100 06/07/16 04:00 06/07/16 08:03 06/07/16 08:03 06/07/16 08:03 06/07/16 08:03 Intake and Output: 06/07/16 06/07/16 06:59 18:59 Intake Total 660 50 Output Total 620 50 Balance 40 0 - Medications Medications: Current Medications Fluconazole (Diflucan Iv 100 Mg/50 Ml Ns) 50 mls @ 100 mls/hr IVPB DAILY [facility] Last Admin: 06/07/16 11:01 Dose: 100 mls/hr Potassium Phosphate 15 mmole/ (Sodium Chloride) 255 mls @ 42.5 mls/hr IVPB ONCE ONE Stop: 06/07/16 19:24 Last Admin: 06/07/16 14:35 Dose: 42.5 mls/hr Insulin Aspart (Novolog) 0 unit SC Q6H [facility] PRN Reason: Protocol Last Admin: 06/07/16 12:43 Dose: 2 unit Latanoprost (Xalatan Opht) 0 ml OU HS [facility] Last Admin: 06/06/16 22:54 Dose: 2.5 ml Pantoprazole Sodium (Protonix Inj) 40 mg IVP DAILY [facility] Last Admin: 06/07/16 11:00 Dose: 40 mg Potassium Phos/Sodium Phos (Neutra-Phos) 1 pkt PO TIDCC [facility] Stop: 06/11/16 18:01 Last Admin: 06/07/16 12:44 Dose: 1 pkt Tamsulosin HCl (Flomax) 0.4 mg PO DAILY [facility] Last Admin: 06/07/16 11:02 Dose: 0.4 mg - Labs Labs: 06/07/16 12:55 06/07/16 07:04 PT 12.8 SECONDS (9.7-12.2) H 06/02/16 09:21 INR 1.2 06/02/16 09:21 APTT 31 SECONDS (21-34) 05/28/16 06:30 Assessment and Plan (1) Acute renal failure Status: Acute (2) Anemia Status: Acute (3) BPH (benign prostatic hyperplasia) Status: Acute (4) Bilateral edema of lower extremity Status: Acute (5) DVT prophylaxis Status: Acute (6) Dry gangrene Status: Acute (7) Gastrointestinal hemorrhage Status: Acute (8) Hypochromic microcytic anemia Status: Acute (9) Hypovolemic shock Status: Acute (10) Memory difficulty Status: Acute (11) Paresthesia of both lower extremities Status: Acute (12) Pneumonia Status: Acute (13) CHF (congestive heart failure) Status: Chronic (14) Diabetes mellitus Status: Chronic - Assessment and Plan (Free Text) Plan: f/u with GI f/u with ID f/u with 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
--- NOTE | 2016-06-07 15:46 | CP.PCM.PN ---
Subjective - Date & Time of Evaluation Date of Evaluation: 06/07/16 Time of Evaluation: 10:00 - Subjective Subjective: Events reviewed Objective - Vital Signs/Intake and Output Vital Signs (last 24 hours): Temp Pulse Resp BP Pulse Ox 97.6 F 71 11 L 123/63 100 06/07/16 08:00 06/07/16 08:03 06/07/16 08:03 06/07/16 08:03 06/07/16 08:03 Intake and Output: 06/07/16 06/07/16 06:59 18:59 Intake Total 660 100 Output Total 620 80 Balance 40 20 - Medications Medications: Current Medications Fluconazole (Diflucan Iv 100 Mg/50 Ml Ns) 50 mls @ 100 mls/hr IVPB DAILY [facility] Last Admin: 06/07/16 11:01 Dose: 100 mls/hr Potassium Phosphate 15 mmole/ (Sodium Chloride) 255 mls @ 42.5 mls/hr IVPB ONCE ONE Stop: 06/07/16 19:24 Last Admin: 06/07/16 14:35 Dose: 42.5 mls/hr Insulin Aspart (Novolog) 0 unit SC Q6H [facility] PRN Reason: Protocol Last Admin: 06/07/16 12:43 Dose: 2 unit Latanoprost (Xalatan Opht) 0 ml OU HS [facility] Last Admin: 06/06/16 22:54 Dose: 2.5 ml Pantoprazole Sodium (Protonix Inj) 40 mg IVP DAILY [facility] Last Admin: 06/07/16 11:00 Dose: 40 mg Potassium Phos/Sodium Phos (Neutra-Phos) 1 pkt PO TIDCC [facility] Stop: 06/11/16 18:01 Last Admin: 06/07/16 12:44 Dose: 1 pkt Tamsulosin HCl (Flomax) 0.4 mg PO DAILY [facility] Last Admin: 06/07/16 11:02 Dose: 0.4 mg - Labs Labs: 06/07/16 12:55 06/07/16 07:04 PT 12.8 SECONDS (9.7-12.2) H 06/02/16 09:21 INR 1.2 06/02/16 09:21 APTT 31 SECONDS (21-34) 05/28/16 06:30 - Constitutional Appears: Chronically Ill - Respiratory Exam Respiratory Exam: Clear to Ausculation Bilateral, NORMAL BREATHING PATTERN - Cardiovascular Exam Cardiovascular Exam: REGULAR RHYTHM, RRR, +S1, +S2. absent: Tachycardia, JVD Assessment and Plan - Assessment and Plan (Free Text) Assessment: 85 y/o with Chronic compensated Mod LV systolic dysfunction, mild MR, Mod , distal septal and anterior akinesia due to chronic CAD s/p CABG in 2012. GI bleed- H/H stable, multiple PRBCs recieved this admission EGD 05/23, push enteroscopy-05/24, 06/03 nonbleeding duodenal ulcer, Patrick Class IIc s/p epinephrine/APC CADIAC: * Hx of known mild-mod LV dysfunction EF 35-40% due to ischemic cardiomyopathy * Euvolemic at present * No active cardiac complaints * Lower extrem edema is improved: * CKD stage 3A chronic * No AFIB seen on any EKG or documented strips Optimize medical therapy with BB, JERROD-I or ARB, Statin and resume ASA or Plavix when safe from GI standpoint.
[2016-06-07] MEDS ORDERED: Potassium Chloride 20 mEq ER Tab PO ONE (18:00)
[2016-06-07] MEDS: Latanoprost 2.5 ml Opht Soln OU SCH (21:00)
[2016-06-08] MEDS: (Novolog) Insulin Aspart, Recombinant 100 u/ml 10 ml vial SC SCH ×5 (00:33→21:36)
[2016-06-08 06:15] LABS: BASO % 0.3 % (0.0-2.0); EOS # 0.1 K/uL (0.0-0.7); EOS % 1.3 % (0.0-4.0); HEMATOCRIT 21.7 % (35.0-51.0); LYMPH # 1.7 K/uL (1.0-4.3); LYMPH % 30.6 % (20.0-40.0); MEAN CELL VOLUME 88.6 fL (80.0-94.0); MEAN CORPUSCULAR HEMOGLOBIN 29.4 pg (27.0-31.0); MEAN CORPUSCULAR HGB CONC 33.2 g/dL (33.0-37.0); MEAN PLATELET VOLUME 8.7 fL (7.2-11.7); MONO # 0.4 K/uL (0.0-0.8); MONO % 6.9 % (0.0-10.0); NRBC % 0.1 % (0.0-2.0); RED CELL DISTRIBUTION WIDTH 17.3 % (11.5-14.5); WHITE BLOOD COUNT 5.4 K/uL (4.8-10.8)
[2016-06-08 06:30] LABS: CHLORIDE 118 mmol/L (98-107); SODIUM 141 mmol/L (132-148)
[2016-06-08 06:32] LABS: ALB/GLOB RATIO 0.6 (1.0-2.1); ALKALINE PHOSPHATASE 41 U/L (38-126); AST/SGOT 13 U/L (17-59); BILIRUBIN,TOTAL 0.2 mg/dL (0.2-1.3); BLOOD UREA NITROGEN 14 mg/dL (9-20); CARBON DIOXIDE 16 mmol/L (22-30); GFR AFRICAN-AMERICAN > 60; TOTAL PROTEIN 4.1 g/dL (6.3-8.3)
[2016-06-08 06:33] LABS: ALT/SGPT 23 U/L (21-72); CALCIUM 6.8 mg/dl (8.6-10.4); GLUCOSE,RANDOM 99 mg/dL (75-110); MAGNESIUM 1.6 mg/dL (1.6-2.3); PHOSPHOROUS 2.7 mg/dL (2.5-4.5)
--- NOTE | 2016-06-08 06:47 | CP.PCM.PN ---
<Denae Chakraborty - Last Filed: 06/08/16 08:35> Subjective - Date & Time of Evaluation Date of Evaluation: 06/08/16 Time of Evaluation: 06:42 - Subjective Subjective: Gastroenterology Fellow/PGY4 Progress Note Patient denies abdominal pain. Frustrated with recurrent episodes of bleeding overnight. Nursing notes two episodes of black tarry stools overnight. Recurrent episode of melena this morning. Tolerating clear liquids. A 12-point review of systems negative except for as above. Objective - Vital Signs/Intake and Output Vital Signs (last 24 hours): Temp Pulse Resp BP Pulse Ox 98 F 90 17 112/61 100 06/08/16 04:00 06/08/16 06:02 06/08/16 06:02 06/08/16 06:03 06/08/16 06:02 Intake and Output: 06/07/16 06/08/16 18:59 06:59 Intake Total 912.5 405.0 Output Total 430 470 Balance 482.5 -65.0 - Medications Medications: Current Medications Fluconazole (Diflucan Iv 100 Mg/50 Ml Ns) 50 mls @ 100 mls/hr IVPB DAILY [facility] Last Admin: 06/07/16 11:01 Dose: 100 mls/hr Insulin Aspart (Novolog) 0 unit SC ACHS [facility] PRN Reason: Protocol Latanoprost (Xalatan Opht) 0 ml OU HS [facility] Last Admin: 06/07/16 21:00 Dose: 2.5 ml Pantoprazole Sodium (Protonix Inj) 40 mg IVP DAILY [facility] Last Admin: 06/07/16 11:00 Dose: 40 mg Potassium Phos/Sodium Phos (Neutra-Phos) 1 pkt PO TIDCC [facility] Stop: 06/11/16 18:01 Last Admin: 06/07/16 17:25 Dose: 1 pkt Tamsulosin HCl (Flomax) 0.4 mg PO DAILY [facility] Last Admin: 06/07/16 11:02 Dose: 0.4 mg - Labs Labs: 06/08/16 06:08 06/07/16 07:04 PT 12.8 SECONDS (9.7-12.2) H 06/02/16 09:21 INR 1.2 06/02/16 09:21 APTT 31 SECONDS (21-34) 05/28/16 06:30 - Constitutional Appears: Non-toxic, No Acute Distress - Head Exam Head Exam: ATRAUMATIC, NORMOCEPHALIC - Eye Exam Eye Exam: PERRL Pupil Exam: PERRL - ENT Exam ENT Exam: Mucous Membranes Moist, Normal Oropharynx - Neck Exam Neck Exam: Full ROM, Normal Inspection - Respiratory Exam Respiratory Exam: Clear to Ausculation Bilateral. absent: Rhonchi, Wheezes - Cardiovascular Exam Cardiovascular Exam: RRR, +S1, +S2 - GI/Abdominal Exam GI & Abdominal Exam: Soft, Normal Bowel Sounds. absent: Distended, Firm, Guarding, Rigid, Tenderness, Organomegaly, Pulsatile Mass, Rebound - Extremities Exam Extremities Exam: Normal Inspection - Neurological Exam Neurological Exam: Alert, Awake - Psychiatric Exam Psychiatric exam: Normal Affect, Normal Mood - Skin Skin Exam: Dry, Intact, Normal Color, Warm Assessment and Plan - Assessment and Plan (Free Text) Assessment: 85 year old male with history of DE complicated by CAD s/p 3 vessel CABG 2012 previously on Plavix, stopped since last dischage 04/2016, moderate aortic stenosis, ischemic cardiomyopathy 35-40%, CKD Stage 3, Hypertension, Hyperlipidemia presenting with weakness and blood in stool from nursing facility. Active treatment of overt recurrent GI blood loss s/p six endoscopic evaluations Acute blood loss anemia 2/2 melena/maroon stools requiring multiple transfusions >EGD 05/23, push enteroscopy-05/24, 06/03 nonbleeding duodenal ulcer, Patrick Class IIc s/p epinephrine/APC >flexible sigmoidoscopy 05/30, colonoscopy 06/04 inflammation of ileocolonic anastamosis, no active bleeding, hemorrhoids >emergent colonoscopy 06/06 active bleeding of ulceration at ileocolonic anastamosis s/p 16cc epinephrine/BiPolar cautery Plan: >recurrent GI bleed >ordered 1 unit pRBCs >continue PPI >recommend surgical intervention for refractory bleeding to endoscopic evaluation >discussed with surgery team- will discuss with Dr. Pacheco <Jesse Davenport - Last Filed: 06/08/16 09:19> Objective - Vital Signs/Intake and Output Vital Signs (last 24 hours): Temp Pulse Resp BP Pulse Ox 97.5 F L 81 10 L 101/57 L 100 06/08/16 08:42 06/08/16 08:44 06/08/16 08:44 06/08/16 08:44 06/08/16 08:44 Intake and Output: 06/08/16 06/08/16 06:59 18:59 Intake Total 405.0 0 Output Total 470 100 Balance -65.0 -100 - Medications Medications: Current Medications Fluconazole (Diflucan Iv 100 Mg/50 Ml Ns) 50 mls @ 100 mls/hr IVPB DAILY [facility] Last Admin: 06/07/16 11:01 Dose: 100 mls/hr Insulin Aspart (Novolog) 0 unit SC ACHS [facility] PRN Reason: Protocol Last Admin: 06/08/16 08:58 Dose: Not Given Latanoprost (Xalatan Opht) 0 ml OU HS [facility] Last Admin: 06/07/16 21:00 Dose: 2.5 ml Pantoprazole Sodium (Protonix Inj) 40 mg IVP DAILY [facility] Last Admin: 06/07/16 11:00 Dose: 40 mg Potassium Phos/Sodium Phos (Neutra-Phos) 1 pkt PO TIDCC [facility] Stop: 06/11/16 18:01 Last Admin: 06/08/16 08:58 Dose: Not Given Tamsulosin HCl (Flomax) 0.4 mg PO DAILY [facility] Last Admin: 06/07/16 11:02 Dose: 0.4 mg - Labs Labs: 06/08/16 06:08 06/08/16 06:04 PT 12.8 SECONDS (9.7-12.2) H 06/02/16 09:21 INR 1.2 06/02/16 09:21 APTT 31 SECONDS (21-34) 05/28/16 06:30 Attending/Attestation - Attestation I have personally seen and examined this patient.: Yes I have fully participated in the care of the patient.: Yes I have reviewed all pertinent clinical information, including history, physical exam and plan: Yes Notes (Text): 06/08/16 09:15 I have seen and examined patient with GI fellow. He remains in ICU critical care, had two episodes of dark tarry stool overnight, one episode of maroon colored stool this morning. He denies associated abdominal pain, nausea, vomiting. Review of vitals from today are normal. CAD/CABG CKD Ischemic cardiomyopathy HTN / hyperlipidemia Recurrent GI bleeding, duodenal ulcer - s/p 2 enteroscopies, 3 colonoscopies with recent bicap therapy to oozing ulcerated mucosa visualized at surgical anastomosis - H/H trending down, patient currently receiving 1 U PRBC transfusion, continue to monitor - Continue with PPI therapy - Clear liquid diet as tolerated - At this point, there is no further GI intervention indicated given multiple endoscopic attempts without successful control of recurrent bleeding. Would recommend surgical intervention should bleeding persist. Case discussed with Dr. Crane who is currently recommending transfusion of FFP, PRBC, and cryoprecipitate with ongoing observation. - Will continue to monitor patient clinical course
[2016-06-08] MEDS: Potassium & Sodium Phosphate PO SCH ×3 (08:58→17:10)
--- NOTE | 2016-06-08 09:13 | CP.PCM.PN ---
Subjective - Date & Time of Evaluation Date of Evaluation: 06/08/16 Time of Evaluation: 08:10 - Subjective Subjective: General Surgery Pt S&E, Had 2 melanotic stools this AM. No c/o pain. Hgb 7.2 from 8.1. Vitals Stable. Objective - Vital Signs/Intake and Output Vital Signs (last 24 hours): Temp Pulse Resp BP Pulse Ox 97.5 F L 81 10 L 101/57 L 100 06/08/16 08:42 06/08/16 08:44 06/08/16 08:44 06/08/16 08:44 06/08/16 08:44 Intake and Output: 06/08/16 06/08/16 06:59 18:59 Intake Total 405.0 0 Output Total 470 100 Balance -65.0 -100 - Medications Medications: Current Medications Fluconazole (Diflucan Iv 100 Mg/50 Ml Ns) 50 mls @ 100 mls/hr IVPB DAILY [facility] Last Admin: 06/07/16 11:01 Dose: 100 mls/hr Insulin Aspart (Novolog) 0 unit SC ACHS [facility] PRN Reason: Protocol Last Admin: 06/08/16 08:58 Dose: Not Given Latanoprost (Xalatan Opht) 0 ml OU HS [facility] Last Admin: 06/07/16 21:00 Dose: 2.5 ml Pantoprazole Sodium (Protonix Inj) 40 mg IVP DAILY [facility] Last Admin: 06/07/16 11:00 Dose: 40 mg Potassium Phos/Sodium Phos (Neutra-Phos) 1 pkt PO TIDCC [facility] Stop: 06/11/16 18:01 Last Admin: 06/08/16 08:58 Dose: Not Given Tamsulosin HCl (Flomax) 0.4 mg PO DAILY [facility] Last Admin: 06/07/16 11:02 Dose: 0.4 mg - Labs Labs: 06/08/16 06:08 06/08/16 06:04 PT 12.8 SECONDS (9.7-12.2) H 06/02/16 09:21 INR 1.2 06/02/16 09:21 APTT 31 SECONDS (21-34) 05/28/16 06:30 - Constitutional Appears: Non-toxic, No Acute Distress - Head Exam Head Exam: ATRAUMATIC, NORMOCEPHALIC - Respiratory Exam Respiratory Exam: NORMAL BREATHING PATTERN. absent: Respiratory Distress - GI/Abdominal Exam GI & Abdominal Exam: Soft. absent: Distended, Guarding, Tenderness - Back Exam Back Exam: absent: CVA tenderness (L), CVA tenderness (R) - Neurological Exam Neurological Exam: Awake - Skin Skin Exam: Dry, Intact Assessment and Plan - Assessment and Plan (Free Text) Assessment: 85M w/ of lower GI bleed and multiple bouts of melenotic stools Plan: D/W GI, who are giving 1 unit PRBCs Transfuse 2 units FFP, 1 platelets, and 1 cryoprecipitate Monitor for bloody BMs. D/W Dr. Rosa Maria Evans PGY3
[2016-06-08] MEDS: Fluconazole IV 100mg/50 ml NS 50 ML IVPB SCH (09:38)
[2016-06-08] MEDS ORDERED: Albumin Human 25% (12.5 gm/50 ml) IV ONE (10:06)
[2016-06-08 10:54] LABS: INR 1.2
[2016-06-08 11:14] LABS: PLT BASE COUNT 97 K/uL
[2016-06-08 11:15] LABS: FUNCTIONING PLTS 94 K/uL; PLT(ADP) 3 K/uL
--- NOTE | 2016-06-08 12:23 | CP.PCM.PN ---
<Bhupinder Denis - Last Filed: 06/08/16 12:40> Subjective - Date & Time of Evaluation Date of Evaluation: 06/07/16 Time of Evaluation: 08:00 - Subjective Subjective: Gen Surg Dr. Crane Patient seen and examined. VSS. Patient denies chest pain/SOB, abdominal pain. As per nursing patient had scant tarry BM. Objective - Vital Signs/Intake and Output Vital Signs (last 24 hours): Temp Pulse Resp BP Pulse Ox 97.9 F 78 12 111/64 100 06/08/16 10:30 06/08/16 11:00 06/08/16 11:00 06/08/16 10:59 06/08/16 11:00 Intake and Output: 06/08/16 06/08/16 06:59 18:59 Intake Total 405.0 650 Output Total 470 205 Balance -65.0 445 - Medications Medications: Current Medications Fluconazole (Diflucan Iv 100 Mg/50 Ml Ns) 50 mls @ 100 mls/hr IVPB DAILY [facility] Last Admin: 06/08/16 09:38 Dose: 100 mls/hr Insulin Aspart (Novolog) 0 unit SC ACHS [facility] PRN Reason: Protocol Last Admin: 06/08/16 08:58 Dose: Not Given Latanoprost (Xalatan Opht) 0 ml OU HS [facility] Last Admin: 06/07/16 21:00 Dose: 2.5 ml Pantoprazole Sodium (Protonix Inj) 40 mg IVP DAILY [facility] Last Admin: 06/08/16 09:35 Dose: 40 mg Potassium Phos/Sodium Phos (Neutra-Phos) 1 pkt PO TIDCC [facility] Stop: 06/11/16 18:01 Last Admin: 06/08/16 08:58 Dose: Not Given Tamsulosin HCl (Flomax) 0.4 mg PO DAILY [facility] Last Admin: 06/08/16 11:11 Dose: 0.4 mg - Labs Labs: 06/08/16 06:08 06/08/16 06:04 PT 13.2 SECONDS (9.7-12.2) H 06/08/16 10:39 INR 1.2 06/08/16 10:39 APTT 31 SECONDS (21-34) 06/08/16 10:39 - Constitutional Appears: Non-toxic, Chronically Ill - Head Exam Head Exam: NORMOCEPHALIC - Eye Exam Eye Exam: EOMI - Respiratory Exam Respiratory Exam: NORMAL BREATHING PATTERN. absent: Accessory Muscle Use - Cardiovascular Exam Cardiovascular Exam: +S1, +S2. absent: Tachycardia - GI/Abdominal Exam GI & Abdominal Exam: Soft. absent: Distended, Firm, Guarding, Tenderness - Neurological Exam Neurological Exam: Alert, Awake - Psychiatric Exam Psychiatric exam: Normal Mood - Skin Skin Exam: Dry, Intact Assessment and Plan - Assessment and Plan (Free Text) Assessment: 85M w/ lower GI bleed 2/2 Plavix use -Patient had scant tarry BM, pt currently stable -F/u Hgb level -Monitor for bleeding -Monitor vital signs -Transfuse as needed -c/w medical tx as per ICU team -Dw Dr. Crane <Erasmo Crane - Last Filed: 06/08/16 13:25> Objective - Vital Signs/Intake and Output Vital Signs (last 24 hours): Temp Pulse Resp BP Pulse Ox 98.4 F 75 16 111/55 L 100 06/08/16 13:00 06/08/16 13:00 06/08/16 13:00 06/08/16 13:00 06/08/16 13:00 Intake and Output: 06/08/16 06/08/16 06:59 18:59 Intake Total 405.0 1000 Output Total 470 205 Balance -65.0 795 - Medications Medications: Current Medications Fluconazole (Diflucan Iv 100 Mg/50 Ml Ns) 50 mls @ 100 mls/hr IVPB DAILY [facility] Last Admin: 06/08/16 09:38 Dose: 100 mls/hr Insulin Aspart (Novolog) 0 unit SC ACHS [facility] PRN Reason: Protocol Last Admin: 06/08/16 12:50 Dose: Not Given Latanoprost (Xalatan Opht) 0 ml OU HS [facility] Last Admin: 06/07/16 21:00 Dose: 2.5 ml Pantoprazole Sodium (Protonix Inj) 40 mg IVP DAILY [facility] Last Admin: 06/08/16 09:35 Dose: 40 mg Potassium Phos/Sodium Phos (Neutra-Phos) 1 pkt PO TIDCC [facility] Stop: 06/11/16 18:01 Last Admin: 06/08/16 12:50 Dose: Not Given Tamsulosin HCl (Flomax) 0.4 mg PO DAILY [facility] Last Admin: 06/08/16 11:11 Dose: 0.4 mg - Labs Labs: 06/08/16 06:08 06/08/16 06:04 PT 13.2 SECONDS (9.7-12.2) H 06/08/16 10:39 INR 1.2 06/08/16 10:39 APTT 31 SECONDS (21-34) 06/08/16 10:39 Attending/Attestation - Attestation I have personally seen and examined this patient.: Yes I have fully participated in the care of the patient.: Yes I have reviewed all pertinent clinical information, including history, physical exam and plan: Yes Notes (Text): 06/08/16 13:24 Pt was seen and examined at bedside on 06/07/16 Agree with above note and assessment. Pt with Lower GI bleed due to Platelet Transfuse FFP and Platelet Plan d.w pt and ICU attending in detail Risk and benefit explained in detail.
--- NOTE | 2016-06-08 13:47 | CP.PCM.PN ---
Subjective - Date & Time of Evaluation Date of Evaluation: 06/08/16 Time of Evaluation: 11:00 - Subjective Subjective: Events reviewed. Will need surgery. Objective - Vital Signs/Intake and Output Vital Signs (last 24 hours): Temp Pulse Resp BP Pulse Ox 98.2 F 70 16 104/53 L 100 06/08/16 13:30 06/08/16 13:30 06/08/16 13:30 06/08/16 13:30 06/08/16 13:30 Intake and Output: 06/08/16 06/08/16 06:59 18:59 Intake Total 405.0 1000 Output Total 470 285 Balance -65.0 715 - Medications Medications: Current Medications Fluconazole (Diflucan Iv 100 Mg/50 Ml Ns) 50 mls @ 100 mls/hr IVPB DAILY [facility] Last Admin: 06/08/16 09:38 Dose: 100 mls/hr Insulin Aspart (Novolog) 0 unit SC ACHS [facility] PRN Reason: Protocol Last Admin: 06/08/16 12:50 Dose: Not Given Latanoprost (Xalatan Opht) 0 ml OU HS [facility] Last Admin: 06/07/16 21:00 Dose: 2.5 ml Pantoprazole Sodium (Protonix Inj) 40 mg IVP DAILY [facility] Last Admin: 06/08/16 09:35 Dose: 40 mg Potassium Phos/Sodium Phos (Neutra-Phos) 1 pkt PO TIDCC [facility] Stop: 06/11/16 18:01 Last Admin: 06/08/16 12:50 Dose: Not Given Tamsulosin HCl (Flomax) 0.4 mg PO DAILY [facility] Last Admin: 06/08/16 11:11 Dose: 0.4 mg - Labs Labs: 06/08/16 06:08 06/08/16 06:04 PT 13.2 SECONDS (9.7-12.2) H 06/08/16 10:39 INR 1.2 06/08/16 10:39 APTT 31 SECONDS (21-34) 06/08/16 10:39 - Constitutional Appears: Well, Non-toxic, Chronically Ill - Respiratory Exam Respiratory Exam: Clear to Ausculation Bilateral, NORMAL BREATHING PATTERN - Cardiovascular Exam Cardiovascular Exam: REGULAR RHYTHM, JVD, RRR, +S1, +S2 - GI/Abdominal Exam GI & Abdominal Exam: Normal Bowel Sounds. 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 Scheduled for FFP and platelet transfusion Patient is acceptable risk for urgent surgery, there is no futher cardiac work up at this time. We will following along to assist in fluid management for chronic systolic CHF Chronic compensated Mod LV systolic dysfunction, mild MR, Mod , distal septal and anterior akinesia due to chronic CAD s/p CABG in 2013. CADIAC: * Hx of known mild-mod LV dysfunction EF 35-40% due to ischemic cardiomyopathy * Euvolemic at present * No active cardiac complaints * Lower extrem edema is improved: * CKD stage 3A chronic * No AFIB seen on any EKG or documented strips Optimize medical therapy with BB, JERROD-I or ARB, Statin and resume ASA or Plavix when safe from GI standpoint.
--- NOTE | 2016-06-08 15:41 | CP.CCUPN ---
CCU Subjective - Physician Review Events Since Last Encounter (Free Text): 06/08/16 15:39 Patient seen and examined in the intensive care unit. Case discussed during the rounds. 2 melanotic stools with drop in hemoglobin Status post transfusion of packed RBCs and getting FFP Responsive in no distress CCU Objective - Vital Signs / Intake & Output Vital Signs (Last 4 hours): Vital Signs Temp Pulse Resp BP Pulse Ox 06/08/16 15:14 74 10 L 100/54 L 100 06/08/16 14:59 78 12 109/55 L 100 06/08/16 14:44 80 15 97/53 L 100 06/08/16 14:35 97.5 F L 78 16 104/52 L 100 06/08/16 14:29 72 8 L 104/52 L 100 06/08/16 14:14 71 8 L 107/56 L 100 06/08/16 14:00 97.7 F 75 14 110/52 L 100 06/08/16 13:59 74 14 110/52 L 100 06/08/16 13:56 77 14 109/55 L 100 06/08/16 13:44 71 11 L 109/52 L 100 06/08/16 13:30 98.2 F 70 16 104/53 L 100 06/08/16 13:29 72 11 L 104/53 L 100 06/08/16 13:14 72 10 L 104/57 L 100 06/08/16 13:00 98.4 F 75 16 111/55 L 100 06/08/16 12:59 76 9 L 111/55 L 100 06/08/16 12:45 98.3 F 73 9 L 102/56 L 100 06/08/16 12:44 74 9 L 102/56 L 100 06/08/16 12:29 76 12 100/54 L 100 06/08/16 12:14 74 9 L 115/59 L 100 06/08/16 12:00 98.1 F 75 9 L 115/59 L 100 06/08/16 11:59 71 9 L 106/57 L 100 06/08/16 11:44 76 8 L 111/54 L 100 Intake and Output (Last 8hrs): Intake & Output 06/08/16 06/08/16 06/08/16 06:59 14:59 22:59 Intake Total 150 1200 Output Total 350 335 Balance -200 865 Weight 154 lb Intake: Intake, IV Amount 100 Right Distal Port PICC 100 Oral 150 0 Blood Product 1100 Red Blood Cells Cpd As1 325 Lr Unit [id number] Output: Urine 350 335 Urethral (Cardenas) 350 335 - Physical Exam Head: Positive for: Atraumatic, Normocephalic Pupils: Positive for: PERRL Extroacular Muscles: Positive for: EOMI Conjunctiva: Positive for: Normal Mouth: Positive for: Moist Mucous Membranes Neck: Positive for: Normal Range of Motion Respiratory/Chest: Positive for: Clear to Auscultation, Good Air Exchange. Negative for: Wheezes Cardiovascular: Positive for: Normal S1, S2 Abdomen: Positive for: Tenderness, Normal Bowel Sounds. Negative for: Peritoneal Signs Back: Positive for: Normal Inspection Upper Extremity: Positive for: Normal Inspection Lower Extremity: Positive for: Normal Inspection Neurological: Positive for: CN II-XII Intact Skin: Positive for: Warm, Dry Psychiatric: Positive for: Lethargic - Medications Active Medications: Active Medications Generic Name Dose Route Start Last Admin Trade Name Сергейq PRN Reason Stop Dose Admin Fluconazole 50 mls @ 100 mls/hr 06/04/16 10:00 06/08/16 09:38 Diflucan Iv 100 Mg/50 Ml Ns IVPB 100 mls/hr DAILY [facility] Administration Insulin Aspart 0 unit 06/08/16 07:30 06/08/16 12:50 Novolog SC Not Given ACHS [facility] Protocol Latanoprost 0 ml 05/22/16 22:00 06/07/16 21:00 Xalatan Opht OU 2.5 ml HS [facility] Administration Pantoprazole Sodium 40 mg 06/07/16 10:00 06/08/16 09:35 Protonix Inj IVP 40 mg DAILY [facility] Administration Potassium Phos/Sodium Phos 1 pkt 06/03/16 18:23 06/08/16 12:50 Neutra-Phos PO 06/11/16 18:01 Not Given TIDCC [facility] Tamsulosin HCl 0.4 mg 05/22/16 10:00 06/08/16 11:11 Flomax PO 0.4 mg DAILY [facility] Administration - Patient Studies Lab Studies: Lab Studies 06/08/16 06/08/16 06/08/16 Range/Units 11:41 11:11 10:39 WBC (4.8-10.8) K/uL RBC (4.40-5.90) Mil/uL Hgb (12.0-18.0) g/dL Hct (35.0-51.0) % MCV (80.0-94.0) fL MCH (27.0-31.0) pg MCHC (33.0-37.0) g/dL RDW (11.5-14.5) % Plt Count (130-400) K/uL MPV (7.2-11.7) fL Neut % (Auto) (50.0-75.0) % Lymph % (Auto) (20.0-40.0) % Morrow % (Auto) (0.0-10.0) % Eos % (Auto) (0.0-4.0) % Baso % (Auto) (0.0-2.0) % Neut # (1.8-7.0) K/uL Lymph # (1.0-4.3) K/uL Morrow # (0.0-0.8) K/uL Eos # (0.0-0.7) K/uL Baso # (0.0-0.2) K/uL PT 13.2 H (9.7-12.2) SECONDS INR 1.2 APTT 31 (21-34) SECONDS Plt Function Assay 94 K/uL Sodium (132-148) mmol/L Potassium (3.6-5.2) mmol/L Chloride (98-107) mmol/L Carbon Dioxide (22-30) mmol/L Anion Gap (10-20) BUN (9-20) mg/dL Creatinine (0.8-1.5) MG/DL Est GFR ( Amer) Est GFR (Non-Af Amer) POC Glucose (mg/dL) 131 H (65-110) mg/dL Random Glucose (75-110) mg/dL Calcium (8.6-10.4) mg/dl Phosphorus (2.5-4.5) mg/dL Magnesium (1.6-2.3) mg/dL Total Bilirubin (0.2-1.3) mg/dL AST (17-59) U/L ALT (21-72) U/L Alkaline Phosphatase (38-126) U/L Total Protein (6.3-8.3) g/dL Albumin (3.5-5.0) g/dL Globulin (2.2-3.9) gm/dL Albumin/Globulin Ratio (1.0-2.1) Blood Type Antibody Screen 06/08/16 06/08/16 06/08/16 Range/Units 07:32 06:08 06:04 WBC 5.4 (4.8-10.8) K/uL RBC 2.45 L (4.40-5.90) Mil/uL Hgb 7.2 L (12.0-18.0) g/dL Hct 21.7 L (35.0-51.0) % MCV 88.6 (80.0-94.0) fL MCH 29.4 (27.0-31.0) pg MCHC 33.2 (33.0-37.0) g/dL RDW 17.3 H (11.5-14.5) % Plt Count 107 L (130-400) K/uL MPV 8.7 (7.2-11.7) fL Neut % (Auto) 60.9 (50.0-75.0) % Lymph % (Auto) 30.6 (20.0-40.0) % Morrow % (Auto) 6.9 (0.0-10.0) % Eos % (Auto) 1.3 (0.0-4.0) % Baso % (Auto) 0.3 (0.0-2.0) % Neut # 3.3 (1.8-7.0) K/uL Lymph # 1.7 (1.0-4.3) K/uL Morrow # 0.4 (0.0-0.8) K/uL Eos # 0.1 (0.0-0.7) K/uL Baso # 0.0 (0.0-0.2) K/uL PT (9.7-12.2) SECONDS INR APTT (21-34) SECONDS Plt Function Assay K/uL Sodium 141 (132-148) mmol/L Potassium 4.0 (3.6-5.2) mmol/L Chloride 118 H (98-107) mmol/L Carbon Dioxide 16 L (22-30) mmol/L Anion Gap 11 (10-20) BUN 14 (9-20) mg/dL Creatinine 1.2 (0.8-1.5) MG/DL Est GFR ( Amer) > 60 Est GFR (Non-Af Amer) 58 POC Glucose (mg/dL) 110 (65-110) mg/dL Random Glucose 99 (75-110) mg/dL Calcium 6.8 L (8.6-10.4) mg/dl Phosphorus 2.7 (2.5-4.5) mg/dL Magnesium 1.6 (1.6-2.3) mg/dL Total Bilirubin 0.2 (0.2-1.3) mg/dL AST 13 L (17-59) U/L ALT 23 (21-72) U/L Alkaline Phosphatase 41 (38-126) U/L Total Protein 4.1 L (6.3-8.3) g/dL Albumin 1.5 L (3.5-5.0) g/dL Globulin 2.5 (2.2-3.9) gm/dL Albumin/Globulin Ratio 0.6 L (1.0-2.1) Blood Type Antibody Screen 06/08/16 06/07/16 06/05/16 Range/Units 00:33 17:31 13:25 WBC (4.8-10.8) K/uL RBC (4.40-5.90) Mil/uL Hgb (12.0-18.0) g/dL Hct (35.0-51.0) % MCV (80.0-94.0) fL MCH (27.0-31.0) pg MCHC (33.0-37.0) g/dL RDW (11.5-14.5) % Plt Count (130-400) K/uL MPV (7.2-11.7) fL Neut % (Auto) (50.0-75.0) % Lymph % (Auto) (20.0-40.0) % Morrow % (Auto) (0.0-10.0) % Eos % (Auto) (0.0-4.0) % Baso % (Auto) (0.0-2.0) % Neut # (1.8-7.0) K/uL Lymph # (1.0-4.3) K/uL Morrow # (0.0-0.8) K/uL Eos # (0.0-0.7) K/uL Baso # (0.0-0.2) K/uL PT (9.7-12.2) SECONDS INR APTT (21-34) SECONDS Plt Function Assay K/uL Sodium (132-148) mmol/L Potassium (3.6-5.2) mmol/L Chloride (98-107) mmol/L Carbon Dioxide (22-30) mmol/L Anion Gap (10-20) BUN (9-20) mg/dL Creatinine (0.8-1.5) MG/DL Est GFR ( Amer) Est GFR (Non-Af Amer) POC Glucose (mg/dL) 87 120 H (65-110) mg/dL Random Glucose (75-110) mg/dL Calcium (8.6-10.4) mg/dl Phosphorus (2.5-4.5) mg/dL Magnesium (1.6-2.3) mg/dL Total Bilirubin (0.2-1.3) mg/dL AST (17-59) U/L ALT (21-72) U/L Alkaline Phosphatase (38-126) U/L Total Protein (6.3-8.3) g/dL Albumin (3.5-5.0) g/dL Globulin (2.2-3.9) gm/dL Albumin/Globulin Ratio (1.0-2.1) Blood Type O POSITIVE Antibody Screen Negative Laboratory Results - last 24 hr 06/05/16 06/07/16 06/08/16 13:25 17:31 00:33 WBC RBC Hgb Hct MCV MCH MCHC RDW Plt Count MPV Neut % (Auto) Lymph % (Auto) Morrow % (Auto) Eos % (Auto) Baso % (Auto) Neut # Lymph # Morrow # Eos # Baso # PT INR APTT Plt Function Assay Sodium Potassium Chloride Carbon Dioxide Anion Gap BUN Creatinine Est GFR ( Amer) Est GFR (Non-Af Amer) POC Glucose (mg/dL) 120 H 87 Random Glucose Calcium Phosphorus Magnesium Total Bilirubin AST ALT Alkaline Phosphatase Total Protein Albumin Globulin Albumin/Globulin Ratio Blood Type O POSITIVE Antibody Screen Negative 06/08/16 06/08/16 06/08/16 06:04 06:08 07:32 WBC 5.4 RBC 2.45 L Hgb 7.2 L Hct 21.7 L MCV 88.6 MCH 29.4 MCHC 33.2 RDW 17.3 H Plt Count 107 L MPV 8.7 Neut % (Auto) 60.9 Lymph % (Auto) 30.6 Morrow % (Auto) 6.9 Eos % (Auto) 1.3 Baso % (Auto) 0.3 Neut # 3.3 Lymph # 1.7 Morrow # 0.4 Eos # 0.1 Baso # 0.0 PT INR APTT Plt Function Assay Sodium 141 Potassium 4.0 Chloride 118 H Carbon Dioxide 16 L Anion Gap 11 BUN 14 Creatinine 1.2 Est GFR ( Amer) > 60 Est GFR (Non-Af Amer) 58 POC Glucose (mg/dL) 110 Random Glucose 99 Calcium 6.8 L Phosphorus 2.7 Magnesium 1.6 Total Bilirubin 0.2 AST 13 L ALT 23 Alkaline Phosphatase 41 Total Protein 4.1 L Albumin 1.5 L Globulin 2.5 Albumin/Globulin Ratio 0.6 L Blood Type Antibody Screen 06/08/16 06/08/16 06/08/16 10:39 11:11 11:41 WBC RBC Hgb Hct MCV MCH MCHC RDW Plt Count MPV Neut % (Auto) Lymph % (Auto) Morrow % (Auto) Eos % (Auto) Baso % (Auto) Neut # Lymph # Morrow # Eos # Baso # PT 13.2 H INR 1.2 APTT 31 Plt Function Assay 94 Sodium Potassium Chloride Carbon Dioxide Anion Gap BUN Creatinine Est GFR ( Amer) Est GFR (Non-Af Amer) POC Glucose (mg/dL) 131 H Random Glucose Calcium Phosphorus Magnesium Total Bilirubin AST ALT Alkaline Phosphatase Total Protein Albumin Globulin Albumin/Globulin Ratio Blood Type Antibody Screen Fingerstick Blood Sugar Results: 115 Critical Care Progress Note - Nutrition Nutrition: Nutrition Category Date Time Status Liquid Diet [DIET] Diets 06/07/16 Breakfast Active Assessment/Plan (1) Gastrointestinal hemorrhage Current Visit: Yes Status: Acute Comment: Transfuse packed RBCs as needed Transfuse 2 units of FFP Platelet count 107 with 94% platelets functional Possible surgery today or in the a.m. Continue Protonix (2) Anemia Current Visit: No Status: Acute
--- NOTE | 2016-06-08 16:21 | CP.PCM.PN ---
Subjective - Date & Time of Evaluation Date of Evaluation: 06/08/16 Time of Evaluation: 13:25 - Subjective Subjective: clinically same Objective - Vital Signs/Intake and Output Vital Signs (last 24 hours): Temp Pulse Resp BP Pulse Ox 97.5 F L 72 23 104/57 L 100 06/08/16 14:35 06/08/16 16:00 06/08/16 16:00 06/08/16 15:59 06/08/16 16:00 Intake and Output: 06/08/16 06/08/16 06:59 18:59 Intake Total 405.0 1450 Output Total 470 335 Balance -65.0 1115 - Medications Medications: Current Medications Fluconazole (Diflucan Iv 100 Mg/50 Ml Ns) 50 mls @ 100 mls/hr IVPB DAILY [facility] Last Admin: 06/08/16 09:38 Dose: 100 mls/hr Insulin Aspart (Novolog) 0 unit SC ACHS [facility] PRN Reason: Protocol Last Admin: 06/08/16 12:50 Dose: Not Given Latanoprost (Xalatan Opht) 0 ml OU HS [facility] Last Admin: 06/07/16 21:00 Dose: 2.5 ml Pantoprazole Sodium (Protonix Inj) 40 mg IVP DAILY [facility] Last Admin: 06/08/16 09:35 Dose: 40 mg Potassium Phos/Sodium Phos (Neutra-Phos) 1 pkt PO TIDCC [facility] Stop: 06/11/16 18:01 Last Admin: 06/08/16 12:50 Dose: Not Given Tamsulosin HCl (Flomax) 0.4 mg PO DAILY [facility] Last Admin: 06/08/16 11:11 Dose: 0.4 mg - Labs Labs: 06/08/16 06:08 06/08/16 06:04 PT 13.2 SECONDS (9.7-12.2) H 06/08/16 10:39 INR 1.2 06/08/16 10:39 APTT 31 SECONDS (21-34) 06/08/16 10:39 Assessment and Plan (1) Acute renal failure Status: Acute (2) Anemia Status: Acute (3) BPH (benign prostatic hyperplasia) Status: Acute (4) Bilateral edema of lower extremity Status: Acute (5) DVT prophylaxis Status: Acute (6) Dry gangrene Status: Acute (7) Gastrointestinal hemorrhage Status: Acute (8) Hypochromic microcytic anemia Status: Acute (9) Hypovolemic shock Status: Acute (10) Memory difficulty Status: Acute (11) Paresthesia of both lower extremities Status: Acute (12) Pneumonia Status: Acute (13) CHF (congestive heart failure) Status: Chronic (14) Diabetes mellitus Status: Chronic - Assessment and Plan (Free Text) Plan: f/u with GI f/u with ID 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
[2016-06-08 18:39] LABS: HEMATOCRIT 20.3 % (35.0-51.0)
[2016-06-08] MEDS: Latanoprost 2.5 ml Opht Soln OU SCH (21:16)
[2016-06-09] MEDS ORDERED: Pantoprazole 80 MG in Sodium Chloride 0.9% 100 ML IVP SCH (00:30)
[2016-06-09] MEDS: Pantoprazole 80 MG in Sodium Chloride 0.9% 100 ML IVPB SCH ×4 (00:45→20:45)
[2016-06-09 06:51] LABS: BASO % 0.3 % (0.0-2.0); EOS # 0.1 K/uL (0.0-0.7); EOS % 1.6 % (0.0-4.0); HEMATOCRIT 25.2 % (35.0-51.0); LYMPH # 1.4 K/uL (1.0-4.3); LYMPH % 30.6 % (20.0-40.0); MEAN CELL VOLUME 88.6 fL (80.0-94.0); MEAN CORPUSCULAR HEMOGLOBIN 29.1 pg (27.0-31.0); MEAN CORPUSCULAR HGB CONC 32.8 g/dL (33.0-37.0); MEAN PLATELET VOLUME 8.8 fL (7.2-11.7); MONO # 0.3 K/uL (0.0-0.8); MONO % 7.1 % (0.0-10.0); NRBC % 0.1 % (0.0-2.0); RED CELL DISTRIBUTION WIDTH 15.4 % (11.5-14.5); WHITE BLOOD COUNT 4.5 K/uL (4.8-10.8)
[2016-06-09 07:00] LABS: INR 1.1
--- NOTE | 2016-06-09 07:12 | CP.CCUPN ---
CCU Subjective - Physician Review Subjective (Free Text): 05/23/16 18:00 Patient seen at beside with no acute issues. Patient had upper GI endoscopy today. Patient a bit lethargic afterwards with recommendations made.for diet advancement to clears once with improved mental status. ROS could not be obtained at the time due to somnolence. 05/26/16 14:47 Pt seen and examined in no acute distress. No significant events overnight per nursing. Patient somnolent at time of initial evaluation. Family present later on bedside. A ROS could not be obtained at this time due to somnolence. 05/27/16 07:32 Pt seen and examined in no acute distress. Patient more alert today and vocally responsive. Patient had an episode of melena this morning per nursing . Patient tolerating clears. Patient medically stable for transfer to telemetry floor. 06/03/16 15:32 Pt seen and examined with no acute events overnight per nursing. Patient had push enteroscopy today. He had large BM with melena afterwards. No complaints of headaches, subjective fevers or chills, nausea, vomiting, constipation, chest pain or palpitations at this time. 06/04/16 13:04 Pt seen and examined in no acute distress. Patient to have colonoscopy today. Pt resting comfortably in bed with no complaints at this time. He specifically denies weakness, headaches, subjective fevers or chills, nausea, vomiting, constipation, chest pain or palpitations at this time. 06/06/16 20:58 [facility] Patient was readmitted to the ICU for subsequent hematochezia. Patient had urgent colonoscopy by GI due to findings on the bleeding scan. Patient is s/p colonoscopy with epinephrine and cautery to ulcerated sites at ileocolonic anastamosis. Pt tolerated procedure well. 06/09/16 15:05 Pt seen and examined in no acute distress. Pt states that he feels chilly and is thus bundled up. Patient had thee episodes of hematochezia (melena) during the overnight shift and then into morning rounds. Patient not aware that the stools are melena. Patient denies headaches, lightheadedness, light sensitivity , chest pain, palpitations, dyspnea, paresthesias, nausea or vomiting at this time. CCU Objective - Vital Signs / Intake & Output Vital Signs (Last 4 hours): Vital Signs Temp Pulse Resp BP Pulse Ox 06/09/16 06:19 61 14 106/53 L 100 06/09/16 06:00 70 13 100 06/09/16 05:51 64 12 111/52 L 100 06/09/16 05:00 63 9 L 100 06/09/16 04:51 63 10 L 113/53 L 100 06/09/16 04:31 61 11 L 101/56 L 100 06/09/16 04:25 63 10 L 111/54 L 100 06/09/16 04:09 59 L 11 L 100 06/09/16 04:00 98.4 F 61 13 100 06/09/16 03:51 64 16 109/51 L 100 06/09/16 03:41 62 11 L 111/53 L 100 06/09/16 03:16 60 12 110/53 L Intake and Output (Last 8hrs): Intake & Output 06/08/16 06/09/16 06/09/16 22:59 06:59 14:59 Intake Total 350 1825 Output Total 370 470 Balance -20 1355 Weight 154 lb 5.177 oz Intake: Oral 0 0 Blood Product 350 1800 Red Blood Cells Cpd As1 325 Lr Unit [id number] Red Blood Cells Cpd As1 0 325 Lr Unit [id number] Other 25 Red Blood Cells Cpd As1 25 Lr Unit [id number] Output: Urine 370 470 Urethral (Cardenas) 370 470 Other: # Bowel Movements 1 - Physical Exam Head: Positive for: Atraumatic, Normocephalic Pupils: Positive for: PERRL Extroacular Muscles: Positive for: EOMI Conjunctiva: Positive for: Normal Mouth: Positive for: Moist Mucous Membranes Neck: Positive for: Normal Range of Motion Respiratory/Chest: Positive for: Clear to Auscultation, Good Air Exchange. Negative for: Wheezes Cardiovascular: Positive for: Normal S1, S2 Abdomen: Positive for: Tenderness, Normal Bowel Sounds. Negative for: Peritoneal Signs Back: Positive for: Normal Inspection Upper Extremity: Positive for: Normal Inspection Lower Extremity: Positive for: Normal Inspection Neurological: Positive for: CN II-XII Intact Skin: Positive for: Warm, Dry Psychiatric: Positive for: Lethargic - Medications Active Medications: Active Medications Generic Name Dose Route Start Last Admin Trade Name Freq PRN Reason Stop Dose Admin Fluconazole 50 mls @ 100 mls/hr 06/04/16 10:00 06/08/16 09:38 Diflucan Iv 100 Mg/50 Ml Ns IVPB 100 mls/hr DAILY L[facility] Administration Pantoprazole Sodium 80 mg/ 100 mls @ 10 mls/hr 06/09/16 00:45 06/09/16 00:45 Sodium Chloride IVPB 10 mls/hr .Q10H L[facility]HA Administration 8 MG/HR Insulin Aspart 0 unit 06/08/16 07:30 06/08/16 21:36 Novolog SC Not Given ACHS L[facility] Protocol Latanoprost 0 ml 05/22/16 22:00 06/08/16 21:16 Xalatan Opht OU 2.5 ml HS L[facility] Administration Potassium Phos/Sodium Phos 1 pkt 06/03/16 18:23 06/08/16 17:10 Neutra-Phos PO 06/11/16 18:01 Not Given TIDCC L[facility] Tamsulosin HCl 0.4 mg 05/22/16 10:00 06/08/16 11:11 Flomax PO 0.4 mg DAILY L[facility] Administration - Patient Studies Lab Studies: Lab Studies 06/09/16 06/08/16 06/08/16 Range/Units 06:45 21:35 19:33 WBC 4.5 L (4.8-10.8) K/uL RBC 2.84 L (4.40-5.90) Mil/uL Hgb 8.3 L (12.0-18.0) g/dL Hct 25.2 L (35.0-51.0) % MCV 88.6 (80.0-94.0) fL MCH 29.1 (27.0-31.0) pg MCHC 32.8 L (33.0-37.0) g/dL RDW 15.4 H (11.5-14.5) % Plt Count 91 L (130-400) K/uL MPV 8.8 (7.2-11.7) fL Neut % (Auto) 60.4 (50.0-75.0) % Lymph % (Auto) 30.6 (20.0-40.0) % [place] % (Auto) 7.1 (0.0-10.0) % Eos % (Auto) 1.6 (0.0-4.0) % Baso % (Auto) 0.3 (0.0-2.0) % Neut # 2.7 (1.8-7.0) K/uL Lymph # 1.4 (1.0-4.3) K/uL [place] # 0.3 (0.0-0.8) K/uL Eos # 0.1 (0.0-0.7) K/uL Baso # 0.0 (0.0-0.2) K/uL PT 12.3 H (9.7-12.2) SECONDS INR 1.1 APTT 31 (21-34) SECONDS Plt Function Assay K/uL POC Glucose (mg/dL) 88 (65-110) mg/dL Blood Type O POSITIVE Antibody Screen Negative 06/08/16 06/08/16 06/08/16 Range/Units 18:26 15:36 11:41 WBC (4.8-10.8) K/uL RBC (4.40-5.90) Mil/uL Hgb 6.6 L (12.0-18.0) g/dL Hct 20.3 L (35.0-51.0) % MCV (80.0-94.0) fL MCH (27.0-31.0) pg MCHC (33.0-37.0) g/dL RDW (11.5-14.5) % Plt Count (130-400) K/uL MPV (7.2-11.7) fL Neut % (Auto) (50.0-75.0) % Lymph % (Auto) (20.0-40.0) % [place] % (Auto) (0.0-10.0) % Eos % (Auto) (0.0-4.0) % Baso % (Auto) (0.0-2.0) % Neut # (1.8-7.0) K/uL Lymph # (1.0-4.3) K/uL [place] # (0.0-0.8) K/uL Eos # (0.0-0.7) K/uL Baso # (0.0-0.2) K/uL PT (9.7-12.2) SECONDS INR APTT (21-34) SECONDS Plt Function Assay K/uL POC Glucose (mg/dL) 104 131 H (65-110) mg/dL Blood Type Antibody Screen 06/08/16 06/08/16 06/08/16 Range/Units 11:11 10:39 07:32 WBC (4.8-10.8) K/uL RBC (4.40-5.90) Mil/uL Hgb (12.0-18.0) g/dL Hct (35.0-51.0) % MCV (80.0-94.0) fL MCH (27.0-31.0) pg MCHC (33.0-37.0) g/dL RDW (11.5-14.5) % Plt Count (130-400) K/uL MPV (7.2-11.7) fL Neut % (Auto) (50.0-75.0) % Lymph % (Auto) (20.0-40.0) % [place] % (Auto) (0.0-10.0) % Eos % (Auto) (0.0-4.0) % Baso % (Auto) (0.0-2.0) % Neut # (1.8-7.0) K/uL Lymph # (1.0-4.3) K/uL [place] # (0.0-0.8) K/uL Eos # (0.0-0.7) K/uL Baso # (0.0-0.2) K/uL PT 13.2 H (9.7-12.2) SECONDS INR 1.2 APTT 31 (21-34) SECONDS Plt Function Assay 94 K/uL POC Glucose (mg/dL) 110 (65-110) mg/dL Blood Type Antibody Screen 06/05/16 Range/Units 13:25 WBC (4.8-10.8) K/uL RBC (4.40-5.90) Mil/uL Hgb (12.0-18.0) g/dL Hct (35.0-51.0) % MCV (80.0-94.0) fL MCH (27.0-31.0) pg MCHC (33.0-37.0) g/dL RDW (11.5-14.5) % Plt Count (130-400) K/uL MPV (7.2-11.7) fL Neut % (Auto) (50.0-75.0) % Lymph % (Auto) (20.0-40.0) % [place] % (Auto) (0.0-10.0) % Eos % (Auto) (0.0-4.0) % Baso % (Auto) (0.0-2.0) % Neut # (1.8-7.0) K/uL Lymph # (1.0-4.3) K/uL [place] # (0.0-0.8) K/uL Eos # (0.0-0.7) K/uL Baso # (0.0-0.2) K/uL PT (9.7-12.2) SECONDS INR APTT (21-34) SECONDS Plt Function Assay K/uL POC Glucose (mg/dL) (65-110) mg/dL Blood Type O POSITIVE Antibody Screen Negative Laboratory Results - last 24 hr 06/05/16 06/08/16 06/08/16 13:25 07:32 10:39 WBC RBC Hgb Hct MCV MCH MCHC RDW Plt Count MPV Neut % (Auto) Lymph % (Auto) [place] % (Auto) Eos % (Auto) Baso % (Auto) Neut # Lymph # [place] # Eos # Baso # PT 13.2 H INR 1.2 APTT 31 Plt Function Assay POC Glucose (mg/dL) 110 Blood Type O POSITIVE Antibody Screen Negative 06/08/16 06/08/16 06/08/16 11:11 11:41 15:36 WBC RBC Hgb Hct MCV MCH MCHC RDW Plt Count MPV Neut % (Auto) Lymph % (Auto) [place] % (Auto) Eos % (Auto) Baso % (Auto) Neut # Lymph # [place] # Eos # Baso # PT INR APTT Plt Function Assay 94 POC Glucose (mg/dL) 131 H 104 Blood Type Antibody Screen 06/08/16 06/08/16 06/08/16 18:26 19:33 21:35 WBC RBC Hgb 6.6 L Hct 20.3 L MCV MCH MCHC RDW Plt Count MPV Neut % (Auto) Lymph % (Auto) [place] % (Auto) Eos % (Auto) Baso % (Auto) Neut # Lymph # [place] # Eos # Baso # PT INR APTT Plt Function Assay POC Glucose (mg/dL) 88 Blood Type O POSITIVE Antibody Screen Negative 06/09/16 06:45 WBC 4.5 L RBC 2.84 L Hgb 8.3 L Hct 25.2 L MCV 88.6 MCH 29.1 MCHC 32.8 L RDW 15.4 H Plt Count 91 L MPV 8.8 Neut % (Auto) 60.4 Lymph % (Auto) 30.6 [place] % (Auto) 7.1 Eos % (Auto) 1.6 Baso % (Auto) 0.3 Neut # 2.7 Lymph # 1.4 [place] # 0.3 Eos # 0.1 Baso # 0.0 PT 12.3 H INR 1.1 APTT 31 Plt Function Assay POC Glucose (mg/dL) Blood Type Antibody Screen Fingerstick Blood Sugar Results: 115 Review of Systems - Review of Systems Review of Systems: see subjective Critical Care Progress Note - Nutrition Nutrition: Nutrition Category Date Time Status NPO Diet [DIET] Diets 06/08/16 Breakfast Active Assessment/Plan - Assessment and Plan (Free Text) Assessment: 85 M with a past medical history of anemia, [place] complicated by CAD s/p 3 vessel CABG, moderate aortic stenosis, hypertension, hyperlipidemia presented with hypotension, weakness, and blood in the stool 05/22. Pt readmitted to ICU for episodes of significant hematochezia overnight. Patient has had extensive GI workup to date. Patient had three subsequent episodes of melena over the course of the night into morning. Plan: Neuro: Neurochecks q 6 aaox3; hard of hearing Optho: Latanoprost OU HS [facility] Dorzolamide OU TID [facility] Brimonidine OU TID [facility] Cardio: Maintain SBP >110 Maintain HR 60-100 bpm Pulm: Maintain O2 saturation >92% 06/06 CXR biapical pleural thickening with upper lobe granulomatous changes. chronic interstitial lung markings. bilateral hilar prominence. patchy left basilar airspace opacity with questionable small left pleural effusion Tamsulosin 0.4 mg PO daily Endo: Diabetes Sliding scale - Novolog Accucheck q6 Maintain Euglycemia GI: Diet : NPO in anticipation for possible surgery 06/03 EGD: 2 cm hiatal hernia present. one large non-bleeding ulcer with clean ulcer base Class III found at duodenal bulb spanning duodenal sweep. improved compared to prior examination without any stigmata of recent bleeding. 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 Post-op diagnosis: marah esophagitis, duodenal ulcer, gastritis, hiatal hernia. Daily CMP 06/04 Colonoscopy: no active bleed, hemorrhoids, ulcerated mucosa at anastamosis site f/u EGD biopsy 06/05 GI Bleeding scan: findings suggestive of active GI bleeding likely at large bowel splenic flexure that extends to the descending colon. 06/06 Colonoscopy - per GI - 15 cc of epinephrine 0.1 mg/ml injections at ulcerated ileocolonic anastomotic site along with electro cautery for hemostasis. Pt s/p transfusions yesterday with appropriate response. Surgery on board to decide necc interventions. First off- angiography studies. F /U No further endoscopic interventions per GI as patient's recurrent bleeding has been successfully controlled each time. : Monitor I/Os Renal: BUN/Cr: WNL Monitor I/Os Daily CMP Heme: H&H stable Monitor 06/02 INR 1.2 06/02 PT 12.8 Daily CBC Ferrlecit on board MSK: PT/OT eval ID: sacral wound WBC decreased today MRSA positive nares Daily CBC Nystatin TOP TID LASHA fluconazole 100mg/50 ml NS 50 cc @ 100 cc/hr Prophylaxis: DVT: SCDs GI: Pantoprazole drip
--- NOTE | 2016-06-09 08:01 | CP.PCM.PN ---
<RosaradurufinoIndra - Last Filed: 06/09/16 09:55> Subjective - Date & Time of Evaluation Date of Evaluation: 06/09/16 Time of Evaluation: 07:59 - Subjective Subjective: PGY4 GI Fellow Progress Note Patient seen and examined bedside this morning. Per nursing staff, patient had 2 -3 black tarry stool overnight. He tolerated both PRBC and FFP transfusions without issue. Currently, he just complains of being tired. Denies any abdominal pain, nausea, vomiting. 12 system ROS performed and negative except where stated. Objective - Vital Signs/Intake and Output Vital Signs (last 24 hours): Temp Pulse Resp BP Pulse Ox 98.4 F 62 10 L 94/52 L 100 06/09/16 04:00 06/09/16 07:00 06/09/16 07:00 06/09/16 06:57 06/09/16 07:00 Intake and Output: 06/09/16 06/09/16 06:59 18:59 Intake Total 1985 10 Output Total 620 Balance 1365 10 - Medications Medications: Current Medications Fluconazole (Diflucan Iv 100 Mg/50 Ml Ns) 50 mls @ 100 mls/hr IVPB DAILY [facility] Last Admin: 06/08/16 09:38 Dose: 100 mls/hr Pantoprazole Sodium 80 mg/ (Sodium Chloride) 100 mls @ 10 mls/hr IVPB .Q10H [facility] PRN Reason: 8 MG/HR Last Admin: 06/09/16 00:45 Dose: 10 mls/hr Insulin Aspart (Novolog) 0 unit SC ACHS [facility] PRN Reason: Protocol Last Admin: 06/08/16 21:36 Dose: Not Given Latanoprost (Xalatan Opht) 0 ml OU HS [facility] Last Admin: 06/08/16 21:16 Dose: 2.5 ml Potassium Phos/Sodium Phos (Neutra-Phos) 1 pkt PO TIDCC [facility] Stop: 06/11/16 18:01 Last Admin: 06/08/16 17:10 Dose: Not Given Tamsulosin HCl (Flomax) 0.4 mg PO DAILY [facility] Last Admin: 06/08/16 11:11 Dose: 0.4 mg - Labs Labs: 06/09/16 06:45 06/08/16 06:04 PT 12.3 SECONDS (9.7-12.2) H 06/09/16 06:45 INR 1.1 06/09/16 06:45 APTT 31 SECONDS (21-34) 06/09/16 06:45 - Constitutional Appears: No Acute Distress - Eye Exam Eye Exam: EOMI, PERRL - ENT Exam ENT Exam: Mucous Membranes Dry - Respiratory Exam Respiratory Exam: Clear to Ausculation Bilateral. absent: Rales, Rhonchi, Wheezes - Cardiovascular Exam Cardiovascular Exam: RRR, +S1, +S2 - GI/Abdominal Exam GI & Abdominal Exam: Soft, Normal Bowel Sounds. absent: Distended, Firm, Guarding, Rigid, Tenderness, Organomegaly - Extremities Exam Extremities Exam: Normal Inspection. absent: Pedal Edema - Neurological Exam Neurological Exam: Alert, Awake, Oriented x3 - Psychiatric Exam Psychiatric exam: Normal Affect, Normal Mood - Skin Skin Exam: Dry, Warm Assessment and Plan - Assessment and Plan (Free Text) Assessment: Patient is an 85yo male with PMHx significant for unknown prior colectomy with ileocolonic anastamosis, anemia, CAD s/p 3 vessel CABG, moderate aortic stenosis , ischemic cardiomyopathy (EF 35-40%), CKD Stage 3, Hypertension, Hyperlipidemia who presented from [place] with weakness and hematochezia. -Acute blood loss anemia -Ileocolonic anastamotic ulceration -CAD -Systolic CHF -CKD -HTN -HLD Plan: -S/P3 units PRBCs and 3 units FFP yesterday with appropriate response -Awaiting decision by surgical service regarding operative intervention -Patient is s/p 2 EGDs, 1 flexibile sigmoidoscopy and 2 colonoscopy (most recent 06/06/16) which revealed an IC anastamosis ulcer s/p cautery -No further endoscopic interventions planned at this time -Will follow <Hailey Negrete MD - Last Filed: 06/09/16 10:15> Objective - Vital Signs/Intake and Output Vital Signs (last 24 hours): Temp Pulse Resp BP Pulse Ox 97.3 F L 60 9 L 101/65 100 06/09/16 08:00 06/09/16 09:00 06/09/16 09:00 06/09/16 08:51 06/09/16 09:00 Intake and Output: 06/09/16 06/09/16 06:59 18:59 Intake Total 1985 30 Output Total 620 100 Balance 1365 -70 - Medications Medications: Current Medications Fluconazole (Diflucan Iv 100 Mg/50 Ml Ns) 50 mls @ 100 mls/hr IVPB DAILY [facility] Last Admin: 06/08/16 09:38 Dose: 100 mls/hr Pantoprazole Sodium 80 mg/ (Sodium Chloride) 100 mls @ 10 mls/hr IVPB .Q10H [facility] PRN Reason: 8 MG/HR Last Admin: 06/09/16 00:45 Dose: 10 mls/hr Insulin Aspart (Novolog) 0 unit SC ACHS [facility]HA PRN Reason: Protocol Last Admin: 06/09/16 08:37 Dose: Not Given Latanoprost (Xalatan Opht) 0 ml OU HS [facility] Last Admin: 06/08/16 21:16 Dose: 2.5 ml Potassium Phos/Sodium Phos (Neutra-Phos) 1 pkt PO TIDCC [facility] Stop: 06/11/16 18:01 Last Admin: 06/09/16 08:37 Dose: Not Given Tamsulosin HCl (Flomax) 0.4 mg PO DAILY [facility] Last Admin: 06/08/16 11:11 Dose: 0.4 mg - Labs Labs: 06/09/16 06:45 06/09/16 06:45 PT 12.3 SECONDS (9.7-12.2) H 06/09/16 06:45 INR 1.1 06/09/16 06:45 APTT 31 SECONDS (21-34) 06/09/16 06:45 Attending/Attestation - Attestation I have personally seen and examined this patient.: Yes I have fully participated in the care of the patient.: Yes I have reviewed all pertinent clinical information, including history, physical exam and plan: Yes Notes (Text): 06/09/16 10:13 I have seen and examined patient with GI fellow. He remains in ICU critical care with no melanotic episodes this am. Recurrent GI bleeding, duodenal ulcer - s/p 2 enteroscopies, 3 colonoscopies with recent bicap therapy to oozing ulcerated mucosa visualized at surgical anastomosis. Total transfusion of 3 PRBC and 2 FFP. H/Hct with appropriate response. NPO as per surgery. - At this point, there is no further GI intervention indicated given multiple endoscopic attempts without successful control of recurrent bleeding. - Would recommend surgical intervention should bleeding persist. - Will continue to monitor patient clinical course
--- NOTE | 2016-06-09 08:36 | CP.PCM.PN ---
<Leobardo Meneses - Last Filed: 06/09/16 17:12> Subjective - Date & Time of Evaluation Date of Evaluation: 06/09/16 Time of Evaluation: 08:31 - Subjective Subjective: PGY-1 note for General Surgery, Dr. Crane Pt S&E. Nursing reports two episodes of blackish stool overnight. Pt was placed on Protonix drip, and given blood transfusion. Hgb 8.3 from 6.6 this AM, after receiving 2 units PRBCs and 2 units FFP yesterday. Pt NPO for possible surgical intervention. Pt denies abdominal pain, nausea, or vomiting. Objective - Vital Signs/Intake and Output Vital Signs (last 24 hours): Temp Pulse Resp BP Pulse Ox 98.4 F 62 10 L 94/52 L 100 06/09/16 04:00 06/09/16 07:00 06/09/16 07:00 06/09/16 06:57 06/09/16 07:00 Intake and Output: 06/09/16 06/09/16 06:59 18:59 Intake Total 1985 10 Output Total 620 Balance 1365 10 - Medications Medications: Current Medications Fluconazole (Diflucan Iv 100 Mg/50 Ml Ns) 50 mls @ 100 mls/hr IVPB DAILY [facility] Last Admin: 06/08/16 09:38 Dose: 100 mls/hr Pantoprazole Sodium 80 mg/ (Sodium Chloride) 100 mls @ 10 mls/hr IVPB .Q10H [facility] PRN Reason: 8 MG/HR Last Admin: 06/09/16 00:45 Dose: 10 mls/hr Insulin Aspart (Novolog) 0 unit SC ACHS [facility] PRN Reason: Protocol Last Admin: 06/08/16 21:36 Dose: Not Given Latanoprost (Xalatan Opht) 0 ml OU HS LASHA Last Admin: 06/08/16 21:16 Dose: 2.5 ml Potassium Phos/Sodium Phos (Neutra-Phos) 1 pkt PO TIDCC [facility] Stop: 06/11/16 18:01 Last Admin: 06/08/16 17:10 Dose: Not Given Tamsulosin HCl (Flomax) 0.4 mg PO DAILY [facility] Last Admin: 06/08/16 11:11 Dose: 0.4 mg - Labs Labs: 06/09/16 06:45 06/08/16 06:04 PT 12.3 SECONDS (9.7-12.2) H 06/09/16 06:45 INR 1.1 06/09/16 06:45 APTT 31 SECONDS (21-34) 06/09/16 06:45 - Constitutional Appears: Non-toxic, No Acute Distress - Head Exam Head Exam: ATRAUMATIC, NORMOCEPHALIC - Respiratory Exam Respiratory Exam: NORMAL BREATHING PATTERN. absent: Respiratory Distress - GI/Abdominal Exam GI & Abdominal Exam: Soft. absent: Distended, Guarding, Tenderness - Neurological Exam Neurological Exam: Alert, Awake, Oriented x3 - Skin Skin Exam: Normal Color, Warm Assessment and Plan - Assessment and Plan (Free Text) Assessment: 85M w/ of lower GI bleed and multiple bouts of melenotic stools Plan: IR consult for angiogrpahy Hgb improved from 6.8 to 8.3 this AM after receiving two units PRBC yesterday Monitor 4pm CBC Surgical team d/w Dr. Rosa Maria Meneses, PGY-1 <Erasmo Crane B - Last Filed: 06/10/16 16:17> Objective - Vital Signs/Intake and Output Vital Signs (last 24 hours): Temp Pulse Resp BP Pulse Ox 98 F 67 12 106/53 L 100 06/10/16 04:00 06/10/16 07:00 06/10/16 07:00 06/10/16 04:50 06/10/16 07:00 Intake and Output: 06/10/16 06/10/16 06:59 18:59 Intake Total 1220 85 Output Total 500 Balance 720 85 - Medications Medications: Current Medications Albumin Human (Albumin Human 25% (12.5 Gm/50 Ml)) 12.5 gm IV Q8 [facility] Last Admin: 06/10/16 13:49 Dose: 12.5 gm Ferric Sodium Gluconate Complex (Ferrlecit) 125 mg IVPB DAILY [facility] Stop: 06/17/16 10:31 Last Admin: 06/10/16 10:06 Dose: 125 mg Fluconazole (Diflucan Iv 100 Mg/50 Ml Ns) 50 mls @ 100 mls/hr IVPB DAILY [facility] Last Admin: 06/10/16 10:06 Dose: 100 mls/hr Insulin Aspart (Novolog) 0 unit SC ACHS [facility] PRN Reason: Protocol Last Admin: 06/10/16 13:52 Dose: Not Given Latanoprost (Xalatan Opht) 0 ml OU HS [facility] Last Admin: 06/09/16 22:11 Dose: 2.5 ml Pantoprazole Sodium (Protonix Inj) 40 mg IVP DAILY [facility] Potassium Phos/Sodium Phos (Neutra-Phos) 1 pkt PO TIDCC [facility] Stop: 06/11/16 18:01 Last Admin: 06/10/16 13:52 Dose: 1 pkt Sodium Bicarbonate (Sodium Bicarbonate Tab) 650 mg PO Q6 [facility] Last Admin: 06/10/16 13:49 Dose: 650 mg Tamsulosin HCl (Flomax) 0.4 mg PO DAILY [facility] Last Admin: 06/10/16 10:07 Dose: 0.4 mg - Labs Labs: 06/10/16 06:38 06/10/16 06:36 PT 12.3 SECONDS (9.7-12.2) H 06/09/16 06:45 INR 1.1 06/09/16 06:45 APTT 31 SECONDS (21-34) 06/09/16 06:45 Attending/Attestation - Attestation I have personally seen and examined this patient.: Yes I have fully participated in the care of the patient.: Yes I have reviewed all pertinent clinical information, including history, physical exam and plan: Yes Notes (Text): 06/10/16 16:16 Pt was seen and examined at bedside on 06/09/16 Agree with above note and assessment. C/w current mx Plan d.w pt in detail.
[2016-06-09] MEDS: Potassium & Sodium Phosphate PO SCH ×3 (08:37→17:10)
[2016-06-09] MEDS: (Novolog) Insulin Aspart, Recombinant 100 u/ml 10 ml vial SC SCH ×4 (08:37→22:08)
[2016-06-09 09:36] LABS: CHLORIDE 115 mmol/L (98-107); POTASSIUM 3.7 mmol/L (3.6-5.2); SODIUM 142 mmol/L (132-148)
[2016-06-09 09:38] LABS: ALB/GLOB RATIO 0.8 (1.0-2.1); AST/SGOT 24 U/L (17-59); BILIRUBIN,TOTAL 0.2 mg/dL (0.2-1.3); CARBON DIOXIDE 16 mmol/L (22-30); GFR AFRICAN-AMERICAN > 60; TOTAL PROTEIN 4.3 g/dL (6.3-8.3)
[2016-06-09 09:39] LABS: ALKALINE PHOSPHATASE 44 U/L (38-126); ALT/SGPT 22 U/L (21-72); BLOOD UREA NITROGEN 14 mg/dL (9-20); CALCIUM 7.2 mg/dl (8.6-10.4); GLUCOSE,RANDOM 69 mg/dL (75-110)
--- NOTE | 2016-06-09 10:50 | CP.PCM.PN ---
Subjective - Date & Time of Evaluation Date of Evaluation: 06/09/16 Time of Evaluation: 10:48 - Subjective Subjective: Recurrent melanotic stools due to GI Bleed S/P EGD and multiple colonoscopy: Multiple PRBCs: Surgery eval done for possible surgical intervention Overall generalized weakness, awkae but lethargic, failure to thrive Objective - Vital Signs/Intake and Output Vital Signs (last 24 hours): Temp Pulse Resp BP Pulse Ox 97.3 F L 60 9 L 101/65 100 06/09/16 08:00 06/09/16 09:00 06/09/16 09:00 06/09/16 08:51 06/09/16 09:00 Intake and Output: 06/09/16 06/09/16 06:59 18:59 Intake Total 1985 30 Output Total 620 100 Balance 1365 -70 - Medications Medications: Current Medications Ferric Sodium Gluconate Complex (Ferrlecit) 125 mg IVPB DAILY [facility] Stop: 06/17/16 10:31 Fluconazole (Diflucan Iv 100 Mg/50 Ml Ns) 50 mls @ 100 mls/hr IVPB DAILY [facility] Last Admin: 06/08/16 09:38 Dose: 100 mls/hr Pantoprazole Sodium 80 mg/ (Sodium Chloride) 100 mls @ 10 mls/hr IVPB .Q10H [facility] PRN Reason: 8 MG/HR Last Admin: 06/09/16 00:45 Dose: 10 mls/hr Insulin Aspart (Novolog) 0 unit SC ACHS [facility] PRN Reason: Protocol Last Admin: 06/09/16 08:37 Dose: Not Given Latanoprost (Xalatan Opht) 0 ml OU HS [facility] Last Admin: 06/08/16 21:16 Dose: 2.5 ml Potassium Phos/Sodium Phos (Neutra-Phos) 1 pkt PO TIDCC [facility] Stop: 06/11/16 18:01 Last Admin: 06/09/16 08:37 Dose: Not Given Tamsulosin HCl (Flomax) 0.4 mg PO DAILY [facility] Last Admin: 06/08/16 11:11 Dose: 0.4 mg - Labs Labs: 06/09/16 06:45 06/09/16 06:45 PT 12.3 SECONDS (9.7-12.2) H 06/09/16 06:45 INR 1.1 06/09/16 06:45 APTT 31 SECONDS (21-34) 06/09/16 06:45 - Constitutional Appears: Chronically Ill - Head Exam Head Exam: ATRAUMATIC, NORMAL INSPECTION, NORMOCEPHALIC - Eye Exam Eye Exam: Normal appearance. absent: Conjunctival injection, Scleral icterus - ENT Exam ENT Exam: Normal Oropharynx - Neck Exam Neck Exam: absent: Lymphadenopathy, Tenderness, Thyromegaly - Respiratory Exam Respiratory Exam: Rhonchi (scaterred). absent: Rales, Wheezes - Cardiovascular Exam Cardiovascular Exam: REGULAR RHYTHM, RRR, +S1, +S2. absent: JVD, Rubs, +S4 - Extremities Exam Extremities Exam: Normal Inspection. absent: Pedal Edema - Neurological Exam Neurological Exam: Awake. absent: Alert, Oriented x3 - Skin Skin Exam: Warm. 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 Scheduled for FFP and platelet transfusion Patient is acceptable risk for urgent surgery, there is no futher cardiac work up at this time. We will following along to assist in fluid management for chronic systolic CHF CADIAC: * Chronic compensated Mod LV systolic dysfunction, mild MR, Mod , distal septal and anterior akinesia due to chronic CAD s/p CABG in 2012. * Hx of known mild-mod LV dysfunction EF 35-40% due to ischemic cardiomyopathy * Euvolemic at present * BP and HE ar apporiate * Lower extrem edema is improved: * CKD stage 3A chronic * No AFIB seen on any EKG or documented strips Optimize medical therapy with BB, JERROD-I or ARB, Statin and resume ASA or Plavix when safe from GI standpoint. Acceptable risk to proceed with GI surgery if required; no plans for any immediate cardiac intervention prior.
[2016-06-09] MEDS: Fluconazole IV 100mg/50 ml NS 50 ML IVPB SCH (11:19)
[2016-06-09] MEDS: Ferric Sodium Gluconat Complex 62.5 mg/5 ml Vial IVPB SCH (11:19)
[2016-06-09] MEDS ORDERED: Dextrose 5%/0.9% NS 1,000 ML IV ONE (14:14)
[2016-06-09] MEDS ORDERED: Iodixanol 320 MG/ML 100 ML BOTTLE IV ONE (15:52)
--- NOTE | 2016-06-09 17:02 | CT ---
PROCEDURE: CT angiography of the Abdomen and Pelvis with contrast HISTORY: lower GI bleed COMPARISON: 06/02/2016 TECHNIQUE: Contrast dose: 100 mL Visipaque 320 Radiation dose: Total exam DLP = 987.77 mGy-cm. This CT exam was performed using one or more of the following dose reduction techniques: Automated exposure control, adjustment of the mA and/or kV according to patient size, and/or use of iterative reconstruction technique. FINDINGS: LOWER THORAX: Bilateral small pleural effusion. Bilateral lower lobe compressive atelectasis. There is some left lower lobe consolidation noted in addition to the compressive atelectasis at left base. . LIVER: Unremarkable. No gross lesion or ductal dilatation. GALLBLADDER AND BILE DUCTS: Status post cholecystectomy. Minimal dilatation of the common bile duct to 7 mm at the level of the pancreatic head, consistent with prior cholecystectomy. PANCREAS: Unremarkable. No gross lesion or ductal dilatation. SPLEEN: Unremarkable. ADRENALS: Mild bilateral adrenal hypertrophy. KIDNEYS AND URETERS: Unremarkable. No hydronephrosis. No solid mass. VASCULATURE: No evidence of abdominal aortic aneurysm. Normal origin of the celiac axis and superior mesenteric artery. Normal origin of the left renal artery with mild atheromatous calcification at the origin of the right renal artery. Normal iliac bifurcation. No iliac arterial aneurysm noted. BOWEL: Extensive gastric mucosal thickening. Mural thickening of the 2nd and 3rd duodenum. Nonspecific. Infiltration of the fat lateral to the 2nd duodenum extending to the aidee hepatis common nonspecific. Circumferential mural thickening of proximal loops of jejunum. Concerning for gastroenteritis. . Mild mural thickening of the transverse colon and splenic flexure. Mural thickening of the sigmoid colon and rectum. Consistent with nonspecific colitis. Status post partial right hemicolectomy. APPENDIX: Right hemicolectomy. PERITONEUM: Unremarkable. No free fluid. No free air. LYMPH NODES: Unremarkable. No enlarged lymph nodes. BLADDER: Decompressed. Cardenas catheter. REPRODUCTIVE: Normal prostate BONES: Lumbar dextroscoliosis. No fracture. OTHER FINDINGS: None. IMPRESSION: Nonspecific colitis involving rectosigmoid colon as well as transverse colon and splenic flexure. Status post partial right hemicolectomy. Nonspecific gastroenteritis involving stomach and duodenum as well as possibly proximal jejunum. No significant abnormality of the abdominal aorta and iliac arteries and branch vessels. Small bilateral pleural effusion. Bilateral lower lobe compressive atelectasis and left lower lobe consolidation, possibly pneumonia.
[2016-06-09 17:52] LABS: MEAN CELL VOLUME 87.6 fL (80.0-94.0); MEAN CORPUSCULAR HEMOGLOBIN 28.4 pg (27.0-31.0); MEAN CORPUSCULAR HGB CONC 32.5 g/dL (33.0-37.0); MEAN PLATELET VOLUME 8.3 fL (7.2-11.7); RED CELL DISTRIBUTION WIDTH 15.5 % (11.5-14.5); WHITE BLOOD COUNT 4.4 K/uL (4.8-10.8)
--- NOTE | 2016-06-09 18:21 | CP.PCM.PN ---
Subjective - Date & Time of Evaluation Date of Evaluation: 06/09/16 Time of Evaluation: 12:40 - Subjective Subjective: clinically same Objective - Vital Signs/Intake and Output Vital Signs (last 24 hours): Temp Pulse Resp BP Pulse Ox 97.8 F 62 9 L 110/57 L 90 L 06/09/16 16:00 06/09/16 17:00 06/09/16 17:00 06/09/16 16:51 06/09/16 17:00 Intake and Output: 06/09/16 06/09/16 06:59 18:59 Intake Total 1985 490 Output Total 620 540 Balance 1365 -50 - Medications Medications: Current Medications Ferric Sodium Gluconate Complex (Ferrlecit) 125 mg IVPB DAILY [facility] Stop: 06/17/16 10:31 Last Admin: 06/09/16 11:19 Dose: 125 mg Fluconazole (Diflucan Iv 100 Mg/50 Ml Ns) 50 mls @ 100 mls/hr IVPB DAILY [facility] Last Admin: 06/09/16 11:19 Dose: 100 mls/hr Pantoprazole Sodium 80 mg/ (Sodium Chloride) 100 mls @ 10 mls/hr IVPB .Q10H [facility] PRN Reason: 8 MG/HR Last Admin: 06/09/16 11:20 Dose: 10 mls/hr Dextrose/Sodium Chloride (Dextrose 5%/0.9% Ns 1000 Ml) 1,000 mls @ 75 mls/hr IV .[id number] ONE Stop: 06/10/16 03:33 Last Admin: 06/09/16 15:00 Dose: 75 mls/hr Insulin Aspart (Novolog) 0 unit SC ACHS [facility] PRN Reason: Protocol Last Admin: 06/09/16 17:23 Dose: 2 unit Latanoprost (Xalatan Opht) 0 ml OU HS [facility] Last Admin: 06/08/16 21:16 Dose: 2.5 ml Potassium Phos/Sodium Phos (Neutra-Phos) 1 pkt PO TIDCC [facility] Stop: 06/11/16 18:01 Last Admin: 06/09/16 17:10 Dose: Not Given Tamsulosin HCl (Flomax) 0.4 mg PO DAILY [facility] Last Admin: 06/09/16 11:19 Dose: 0.4 mg - Labs Labs: 06/09/16 17:28 06/09/16 06:45 PT 12.3 SECONDS (9.7-12.2) H 06/09/16 06:45 INR 1.1 06/09/16 06:45 APTT 31 SECONDS (21-34) 06/09/16 06:45 - Constitutional Appears: Well - Head Exam Head Exam: ATRAUMATIC, NORMAL INSPECTION, NORMOCEPHALIC - Eye Exam Eye Exam: EOMI, Normal appearance, PERRL Pupil Exam: NORMAL ACCOMODATION, PERRL - ENT Exam ENT Exam: Mucous Membranes Moist, Normal Exam - Respiratory Exam Respiratory Exam: Decreased Breath Sounds - Cardiovascular Exam Cardiovascular Exam: REGULAR RHYTHM, +S1, +S2 - GI/Abdominal Exam GI & Abdominal Exam: Distended, Soft, Diminished Bowel Sounds - Rectal Exam Rectal Exam: Deferred - Neurological Exam Neurological Exam: Alert Assessment and Plan - Assessment and Plan (Free Text) Plan: s/p 2 unit so fprbcs 2 units of ffp discuse diht son edilberto michelle as ordered will ordred cbc cmp daily may need surg as pt constantly bleeding from colon nahcob tb;iv iron feeding s per gi michelle as ordred followup wth consultations
[2016-06-09] MEDS: Latanoprost 2.5 ml Opht Soln OU SCH (22:11)
[2016-06-10] MEDS: Albumin Human 25% (12.5 gm/50 ml) IV SCH ×4 (00:51→21:00)
[2016-06-10] MEDS: Pantoprazole 80 MG in Sodium Chloride 0.9% 100 ML IVPB SCH (05:50)
[2016-06-10 06:50] LABS: CHLORIDE 113 mmol/L (98-107); SODIUM 145 mmol/L (132-148)
[2016-06-10 06:51] LABS: POTASSIUM 3.2 mmol/L (3.6-5.2)
[2016-06-10 06:51] LABS: BASO % 0.3 % (0.0-2.0); EOS # 0.1 K/uL (0.0-0.7); EOS % 1.8 % (0.0-4.0); HEMATOCRIT 24.6 % (35.0-51.0); LYMPH # 1.4 K/uL (1.0-4.3); LYMPH % 33.5 % (20.0-40.0); MEAN CELL VOLUME 88.2 fL (80.0-94.0); MEAN CORPUSCULAR HGB CONC 32.9 g/dL (33.0-37.0); MEAN PLATELET VOLUME 8.2 fL (7.2-11.7); MONO # 0.3 K/uL (0.0-0.8); MONO % 7.1 % (0.0-10.0); WHITE BLOOD COUNT 4.2 K/uL (4.8-10.8)
[2016-06-10 06:53] LABS: ALB/GLOB RATIO 0.8 (1.0-2.1); ALKALINE PHOSPHATASE 43 U/L (38-126); ALT/SGPT 23 U/L (21-72); AST/SGOT 14 U/L (17-59); BILIRUBIN,TOTAL 0.6 mg/dL (0.2-1.3); BLOOD UREA NITROGEN 11 mg/dL (9-20); CARBON DIOXIDE 21 mmol/L (22-30); GFR AFRICAN-AMERICAN > 60; GLUCOSE,RANDOM 118 mg/dL (75-110); TOTAL PROTEIN 4.1 g/dL (6.3-8.3)
[2016-06-10 06:54] LABS: CALCIUM 6.4 mg/dl (8.6-10.4); MAGNESIUM 1.6 mg/dL (1.6-2.3)
--- NOTE | 2016-06-10 07:55 | CP.PCM.PN ---
<Indra Hennessy - Last Filed: 06/10/16 07:52> Subjective - Date & Time of Evaluation Date of Evaluation: 06/10/16 Time of Evaluation: 06:50 - Subjective Subjective: PGY4 GI Fellow Progress Note Patient seen and examined bedside this morning. The patient has no complaints at present. No events overnight per staff. Patient maintained NPO yesterday in preparation for surgery but now awaiting IR evaluation. 12 system ROS performed and negative except where stated. Objective - Vital Signs/Intake and Output Vital Signs (last 24 hours): Temp Pulse Resp BP Pulse Ox 98 F 67 12 106/53 L 100 06/10/16 04:00 06/10/16 07:00 06/10/16 07:00 06/10/16 04:50 06/10/16 07:00 Intake and Output: 06/10/16 06/10/16 06:59 18:59 Intake Total 1220 85 Output Total 500 Balance 720 85 - Medications Medications: Current Medications Albumin Human (Albumin Human 25% (12.5 Gm/50 Ml)) 12.5 gm IV Q8 [facility] Last Admin: 06/10/16 05:49 Dose: 12.5 gm Ferric Sodium Gluconate Complex (Ferrlecit) 125 mg IVPB DAILY [facility] Stop: 06/17/16 10:31 Last Admin: 06/09/16 11:19 Dose: 125 mg Fluconazole (Diflucan Iv 100 Mg/50 Ml Ns) 50 mls @ 100 mls/hr IVPB DAILY [facility] Last Admin: 06/09/16 11:19 Dose: 100 mls/hr Pantoprazole Sodium 80 mg/ (Sodium Chloride) 100 mls @ 10 mls/hr IVPB .Q10H [facility] PRN Reason: 8 MG/HR Last Admin: 06/10/16 05:50 Dose: 10 mls/hr Insulin Aspart (Novolog) 0 unit SC ACHS [facility] PRN Reason: Protocol Last Admin: 06/09/16 22:08 Dose: Not Given Latanoprost (Xalatan Opht) 0 ml OU HS [facility] Last Admin: 06/09/16 22:11 Dose: 2.5 ml Potassium Phos/Sodium Phos (Neutra-Phos) 1 pkt PO TIDCC [facility] Stop: 06/11/16 18:01 Last Admin: 06/09/16 17:10 Dose: Not Given Sodium Bicarbonate (Sodium Bicarbonate Tab) 650 mg PO Q6 [facility] Last Admin: 06/10/16 06:06 Dose: 650 mg Tamsulosin HCl (Flomax) 0.4 mg PO DAILY [facility] Last Admin: 06/09/16 11:19 Dose: 0.4 mg - Labs Labs: 06/10/16 06:38 06/10/16 06:36 PT 12.3 SECONDS (9.7-12.2) H 06/09/16 06:45 INR 1.1 06/09/16 06:45 APTT 31 SECONDS (21-34) 06/09/16 06:45 - Constitutional Appears: Non-toxic, No Acute Distress - Eye Exam Eye Exam: EOMI, PERRL - ENT Exam ENT Exam: Mucous Membranes Dry - Respiratory Exam Respiratory Exam: Clear to Ausculation Bilateral. absent: Rales, Rhonchi, Wheezes - Cardiovascular Exam Cardiovascular Exam: RRR, +S1, +S2 - GI/Abdominal Exam GI & Abdominal Exam: Soft, Normal Bowel Sounds. absent: Distended, Firm, Guarding, Rigid, Tenderness, Organomegaly - Extremities Exam Extremities Exam: Normal Inspection. absent: Pedal Edema - Neurological Exam Neurological Exam: Alert, Awake, Oriented x3 - Psychiatric Exam Psychiatric exam: Normal Affect, Normal Mood - Skin Skin Exam: Dry, Warm Assessment and Plan - Assessment and Plan (Free Text) Assessment: Patient is an 85yo male with PMHx significant for unknown prior colectomy with ileocolonic anastamosis, anemia, CAD s/p 3 vessel CABG, moderate aortic stenosis , ischemic cardiomyopathy (EF 35-40%), CKD Stage 3, Hypertension, Hyperlipidemia who presented from [place] with weakness and hematochezia. -Acute blood loss anemia -Ileocolonic anastamotic ulceration -CAD -Systolic CHF -CKD -HTN -HLD Plan: -Patient has required multiple transfusions of PRBCs and FFP -Surgical service has consulted IR for evaluation of IR guided embolization -Changed diet to liquid diet if no surgical interventions planned at this time -Ultimately, awaiting decision by surgical service regarding operative intervention -Patient is s/p 2 EGDs, 1 flexibile sigmoidoscopy and 2 colonoscopy (most recent 06/06/16) which revealed an IC anastamosis ulcer s/p cautery; there no no further plan for endoscopic intervention at present <Jesse Davenport Y - Last Filed: 06/10/16 08:11> Objective - Vital Signs/Intake and Output Vital Signs (last 24 hours): Temp Pulse Resp BP Pulse Ox 98 F 67 12 106/53 L 100 06/10/16 04:00 06/10/16 07:00 06/10/16 07:00 06/10/16 04:50 06/10/16 07:00 Intake and Output: 06/10/16 06/10/16 06:59 18:59 Intake Total 1220 85 Output Total 500 Balance 720 85 - Medications Medications: Current Medications Albumin Human (Albumin Human 25% (12.5 Gm/50 Ml)) 12.5 gm IV Q8 [facility] Last Admin: 06/10/16 05:49 Dose: 12.5 gm Ferric Sodium Gluconate Complex (Ferrlecit) 125 mg IVPB DAILY [facility] Stop: 06/17/16 10:31 Last Admin: 06/09/16 11:19 Dose: 125 mg Fluconazole (Diflucan Iv 100 Mg/50 Ml Ns) 50 mls @ 100 mls/hr IVPB DAILY [facility] Last Admin: 06/09/16 11:19 Dose: 100 mls/hr Pantoprazole Sodium 80 mg/ (Sodium Chloride) 100 mls @ 10 mls/hr IVPB .Q10H [facility] PRN Reason: 8 MG/HR Last Admin: 06/10/16 05:50 Dose: 10 mls/hr Insulin Aspart (Novolog) 0 unit SC ACHS [facility] PRN Reason: Protocol Last Admin: 06/09/16 22:08 Dose: Not Given Latanoprost (Xalatan Opht) 0 ml OU HS [facility] Last Admin: 06/09/16 22:11 Dose: 2.5 ml Potassium Phos/Sodium Phos (Neutra-Phos) 1 pkt PO TIDCC [facility] Stop: 06/11/16 18:01 Last Admin: 06/09/16 17:10 Dose: Not Given Sodium Bicarbonate (Sodium Bicarbonate Tab) 650 mg PO Q6 [facility] Last Admin: 06/10/16 06:06 Dose: 650 mg Tamsulosin HCl (Flomax) 0.4 mg PO DAILY [facility] Last Admin: 06/09/16 11:19 Dose: 0.4 mg - Labs Labs: 06/10/16 06:38 06/10/16 06:36 PT 12.3 SECONDS (9.7-12.2) H 06/09/16 06:45 INR 1.1 06/09/16 06:45 APTT 31 SECONDS (21-34) 06/09/16 06:45 Attending/Attestation - Attestation I have personally seen and examined this patient.: Yes I have fully participated in the care of the patient.: Yes I have reviewed all pertinent clinical information, including history, physical exam and plan: Yes Notes (Text): 06/10/16 08:05 I have seen and examined patient with GI fellow. No acute events overnight. He is seen resting in bed, offers no specific complaints of abdominal pain, nausea, vomiting. As per nursing staff, patient with one scant maroon colored bowel movement overnight. Review of vitals from today are normal. CAD/CABG Ischemic cardiomyopathy CKD HTN /hyperlipidemia GI bleeding, duodenal ulcer - H/H stable, s/p PRBC transfusion, continue to monitor - No further planned GI intervention given numerous endoscopic attempts for bleeding control without success - Continue with PPI - can discontinue infusion, no clinical indication. - Further plan as per surgical team - If no surgical intervention is planned, would advance diet as tolerated and continue to observe
--- NOTE | 2016-06-10 08:27 | CP.PCM.PN ---
<Leobardo Meneses - Last Filed: 06/10/16 12:07> Subjective - Date & Time of Evaluation Date of Evaluation: 06/10/16 Time of Evaluation: 08:23 - Subjective Subjective: PGY-1 note for General Surgery, Pt S&EBrittany RUBALCAVA. Nursing reports passing of one small maroon colored stool overnight. Pt c/o nasal dryness and congestion from nasal cannula. Denies abdominal pain, nausea, or vomiting, at this time. Objective - Vital Signs/Intake and Output Vital Signs (last 24 hours): Temp Pulse Resp BP Pulse Ox 98 F 67 12 106/53 L 100 06/10/16 04:00 06/10/16 07:00 06/10/16 07:00 06/10/16 04:50 06/10/16 07:00 Intake and Output: 06/10/16 06/10/16 06:59 18:59 Intake Total 1220 85 Output Total 500 Balance 720 85 - Medications Medications: Current Medications Albumin Human (Albumin Human 25% (12.5 Gm/50 Ml)) 12.5 gm IV Q8 [facility] Last Admin: 06/10/16 05:49 Dose: 12.5 gm Ferric Sodium Gluconate Complex (Ferrlecit) 125 mg IVPB DAILY [facility] Stop: 06/17/16 10:31 Last Admin: 06/09/16 11:19 Dose: 125 mg Fluconazole (Diflucan Iv 100 Mg/50 Ml Ns) 50 mls @ 100 mls/hr IVPB DAILY [facility] Last Admin: 06/09/16 11:19 Dose: 100 mls/hr Pantoprazole Sodium 80 mg/ (Sodium Chloride) 100 mls @ 10 mls/hr IVPB .Q10H [facility] PRN Reason: 8 MG/HR Last Admin: 06/10/16 05:50 Dose: 10 mls/hr Insulin Aspart (Novolog) 0 unit SC ACHS [facility] PRN Reason: Protocol Last Admin: 06/09/16 22:08 Dose: Not Given Latanoprost (Xalatan Opht) 0 ml OU HS [facility] Last Admin: 06/09/16 22:11 Dose: 2.5 ml Potassium Phos/Sodium Phos (Neutra-Phos) 1 pkt PO TIDCC [facility] Stop: 06/11/16 18:01 Last Admin: 06/09/16 17:10 Dose: Not Given Sodium Bicarbonate (Sodium Bicarbonate Tab) 650 mg PO Q6 [facility] Last Admin: 06/10/16 06:06 Dose: 650 mg Tamsulosin HCl (Flomax) 0.4 mg PO DAILY [facility] Last Admin: 06/09/16 11:19 Dose: 0.4 mg - Labs Labs: 06/10/16 06:38 06/10/16 06:36 PT 12.3 SECONDS (9.7-12.2) H 06/09/16 06:45 INR 1.1 06/09/16 06:45 APTT 31 SECONDS (21-34) 06/09/16 06:45 - Constitutional Appears: Non-toxic, No Acute Distress - Eye Exam Eye Exam: EOMI Pupil Exam: PERRL - Respiratory Exam Respiratory Exam: NORMAL BREATHING PATTERN - GI/Abdominal Exam GI & Abdominal Exam: Soft, Normal Bowel Sounds - Extremities Exam Extremities Exam: Normal Inspection - Neurological Exam Neurological Exam: Alert, Awake, Oriented x3 - Psychiatric Exam Psychiatric exam: Normal Affect, Normal Mood - Skin Skin Exam: Normal Color, Warm Assessment and Plan - Assessment and Plan (Free Text) Assessment: 85M w/ of lower GI bleed and multiple bouts of melenotic stools Plan: Hgb stable this AM - Monitor 4pm CBC No further planned GI intervention No surgical intervention at this time Protonix infusion discontinued Surgical team d/w Dr. Rosa Maria Meneses, PGY-1 <Erasmo Crane B - Last Filed: 06/10/16 16:22> Objective - Vital Signs/Intake and Output Vital Signs (last 24 hours): Temp Pulse Resp BP Pulse Ox 98 F 67 12 106/53 L 100 06/10/16 04:00 06/10/16 07:00 06/10/16 07:00 06/10/16 04:50 06/10/16 07:00 Intake and Output: 06/10/16 06/10/16 06:59 18:59 Intake Total 1220 85 Output Total 500 Balance 720 85 - Medications Medications: Current Medications Albumin Human (Albumin Human 25% (12.5 Gm/50 Ml)) 12.5 gm IV Q8 [facility] Last Admin: 06/10/16 13:49 Dose: 12.5 gm Ferric Sodium Gluconate Complex (Ferrlecit) 125 mg IVPB DAILY [facility] Stop: 06/17/16 10:31 Last Admin: 06/10/16 10:06 Dose: 125 mg Fluconazole (Diflucan Iv 100 Mg/50 Ml Ns) 50 mls @ 100 mls/hr IVPB DAILY [facility] Last Admin: 06/10/16 10:06 Dose: 100 mls/hr Insulin Aspart (Novolog) 0 unit SC ACHS [facility] PRN Reason: Protocol Last Admin: 06/10/16 13:52 Dose: Not Given Latanoprost (Xalatan Opht) 0 ml OU HS [facility] Last Admin: 06/09/16 22:11 Dose: 2.5 ml Pantoprazole Sodium (Protonix Inj) 40 mg IVP DAILY [facility] Potassium Phos/Sodium Phos (Neutra-Phos) 1 pkt PO TIDCC [facility] Stop: 06/11/16 18:01 Last Admin: 06/10/16 13:52 Dose: 1 pkt Sodium Bicarbonate (Sodium Bicarbonate Tab) 650 mg PO Q6 [facility] Last Admin: 06/10/16 13:49 Dose: 650 mg Tamsulosin HCl (Flomax) 0.4 mg PO DAILY [facility] Last Admin: 06/10/16 10:07 Dose: 0.4 mg - Labs Labs: 06/10/16 06:38 06/10/16 06:36 PT 12.3 SECONDS (9.7-12.2) H 06/09/16 06:45 INR 1.1 06/09/16 06:45 APTT 31 SECONDS (21-34) 06/09/16 06:45 Attending/Attestation - Attestation I have personally seen and examined this patient.: Yes I have fully participated in the care of the patient.: Yes I have reviewed all pertinent clinical information, including history, physical exam and plan: Yes Notes (Text): 06/10/16 16:21 Pt was seen and examined at bedside on 06/10/16 Agree with above note and assessment Pt has stopped bleeding. No need for any surgical intervention at present Advance diet to full liquid diet Plan d.w pt in detail.
[2016-06-10] MEDS: (Novolog) Insulin Aspart, Recombinant 100 u/ml 10 ml vial SC SCH ×4 (08:42→21:01)
[2016-06-10] MEDS ORDERED: Potassium Chloride 20 mEq/15 ml LIQ UD PO ONE (09:00)
[2016-06-10] MEDS ORDERED: Potassium Phosphate 15 MMOLE in Sodium Chloride 0.9% 250 ML IVPB ONE (09:00)
[2016-06-10] MEDS: Ferric Sodium Gluconat Complex 62.5 mg/5 ml Vial IVPB SCH (10:06)
[2016-06-10] MEDS: Fluconazole IV 100mg/50 ml NS 50 ML IVPB SCH (10:06)
[2016-06-10] MEDS: Potassium & Sodium Phosphate PO SCH ×3 (10:07→18:02)
--- NOTE | 2016-06-10 11:42 | CP.PCM.CON ---
History of Present Illness - History of Present Illness History of Present Illness: Palliative consult for goals of care discussion Requested by Vijay KING Patient was admitted from [place] with GI bleed in hypovolemic shock. Patient was found weak, hypotensive and tachycardic. Upon admission the gastric biopsy suggested chronic inflammation of gastric mucousa ; colitis and gastroenteritis. EGD hemostasis was performed on 05/26/2016. Patient had had no bloody BMs since admission. Latest Hb 8.1. Protonix drip and Ferlicet IV on board. Patient was also diagnosed with UTI and MRSA and treated accordingly. PMH: anemia, BPH, pneumonia, teriferal edema, CABG Soc. Hx: [place] resident, PMH: denies Review of Systems - Constitutional Constitutional: Malaise, Weakness - EENT Eyes: absent: As Per HPI, Blind Spots, Blurred Vision, Change in Vision, Decreased Night Vision, Diplopia, Discharge, Dry Eye, Exophthalmos, Floaters, Irritation, Itchy Eyes, Loss of Peripheral Vision, Pain, Photophobia, Requires Corrective Lenses, Sees Flashes, Spots in Vision, Tunnel Vision, Other Visual Disturbances, Loss of Vision, Other Ears: absent: As Per HPI, Decreased Hearing, Ear Discharge, Ear Pain, Tinnitus, Abnormal Hearing, Disequilibrium, Dizziness, Other Nose/Mouth/Throat: absent: As Per HPI, Epistaxis, Nasal Congestion, Nasal Discharge, Nasal Obstruction, Nasal Trauma, Nose Pain, Post Nasal Drip, Sinus Pain, Sinus Pressure, Bleeding Gums, Change in Voice, Dental Pain, Dry Mouth, Dysphagia, Halitosis, Hoarsness, Lip Swelling, Mouth Lesions, Mouth Pain, Odynophagia, Sore Throat, Throat Swelling, Tongue Swelling, Facial Pain, Neck Pain, Neck Mass, Other - Cardiovascular Cardiovascular: Pedal Edema - Respiratory Respiratory: absent: As Per HPI, Cough, Dyspnea, Hemoptysis, Dyspnea on Exertion , Wheezing, Snoring, Stridor, Pain on Inspiration, Chest Congestion, Excessive Mucous Production, Change in Mucous Color, Pain with Coughing, Other - Genitourinary Genitourinary: absent: As Per HPI, Change in Urinary Stream, Difficulty Urinating, Dysuria, Flank Pain, Hematuria, Pyuria, Nocturia, Urinary Incontinence, Urinary Frequency, Urinary Hesitance, Urinary Urgency, Voiding Freq/Small Amts, Freq UTI, Hx Renal/Bladder Calculi, Hx /Renal Surgery, Bladder Distension, Other - Integumentary Integumentary: Dry Skin - Neurological Neurological: Weakness - Psychiatric Psychiatric: absent: As Per HPI, Abnormal Sleep Pattern, Anhedonia, Anxiety, Auditory Hallucinations, Behavioral Changes, Change in Appetite, Change in Libido, Confusion, Depression, Difficulty Concentrating, Hallucinations, Homicidal Ideation, Hopelessness, Irritability, Memory Loss, Mood Swings, Panic Attacks, Paranoia, Suicidal Ideation, Visual Hallucinations, Tactile Hallucinations, Other - Endocrine Endocrine: absent: As Per HPI, Change in Body Appearance, Change in Libido, Cold Intolorance, Deepening of Voice, Excessive Sweating, Fatigue, Flushing, Heat Intolorance, Increase in Ring/Shoe/Hat Size, Palpitations, Polydipsia, Polyphagia, Polyuria, Other - Hematologic/Lymphatic Additional comments: GI bleed Past Patient History - Tetanus Immunizations Tetanus Immunization: Unknown - Past Medical History & Family History Past Medical History?: Yes - Past Social History Smoking Status: Former Smoker Alcohol: None - CARDIAC Hx Cardiac Disorders: Yes Hx Congestive Heart Failure: Yes Hx Hypertension: Yes - PULMONARY Hx Respiratory Disorders: Yes Hx Pneumonia: Yes - NEUROLOGICAL Hx Neurological Disorder: Yes HX Cerebrovascular Accident: Yes - HEENT Hx HEENT Problems: Yes Hx Glaucoma: Yes - RENAL Hx Chronic Kidney Disease: Yes Other/Comment: ckd - ENDOCRINE/METABOLIC Hx Diabetes Mellitus Type 2: Yes - HEMATOLOGICAL/ONCOLOGICAL Hx Blood Disorders: Yes Hx Anemia: Yes - INTEGUMENTARY Hx Dermatological Problems: No - MUSCULOSKELETAL/RHEUMATOLOGICAL Hx Musculoskeletal Disorders: Yes Hx Falls: Yes - GASTROINTESTINAL Hx Gastrointestinal Disorders: No - GENITOURINARY/GYNECOLOGICAL Hx Genitourinary Disorders: No - PSYCHIATRIC Hx Psychophysiologic Disorder: No Hx Substance Use: No - SURGICAL HISTORY Hx Surgeries: Yes Hx Appendectomy: Yes (2014) Hx Coronary Artery Bypass Graft: Yes (2012) - ANESTHESIA Hx Anesthesia: Yes Hx Anesthesia Reactions: No Hx Malignant Hyperthermia: No Has any member of the family had a problem w/ anesthesia?: No Meds Allergies/Adverse Reactions: Allergies Allergy/AdvReac Type Severity Reaction Status Date / Time No Known Allergies Allergy Unverified 05/21/16 23:21 - Medications Medications: Current Medications Albumin Human (Albumin Human 25% (12.5 Gm/50 Ml)) 12.5 gm IV Q8 LASHA Last Admin: 06/10/16 05:49 Dose: 12.5 gm Ferric Sodium Gluconate Complex (Ferrlecit) 125 mg IVPB DAILY [facility] Stop: 06/17/16 10:31 Last Admin: 06/10/16 10:06 Dose: 125 mg Fluconazole (Diflucan Iv 100 Mg/50 Ml Ns) 50 mls @ 100 mls/hr IVPB DAILY [facility] Last Admin: 06/10/16 10:06 Dose: 100 mls/hr Pantoprazole Sodium 80 mg/ (Sodium Chloride) 100 mls @ 10 mls/hr IVPB .Q10H [facility] PRN Reason: 8 MG/HR Last Admin: 06/10/16 05:50 Dose: 10 mls/hr Potassium Phosphate 15 mmole/ (Sodium Chloride) 255 mls @ 42.5 mls/hr IVPB ONCE ONE Stop: 06/10/16 14:59 Last Admin: 06/10/16 10:06 Dose: 42.5 mls/hr Insulin Aspart (Novolog) 0 unit SC ACHS [facility] PRN Reason: Protocol Last Admin: 06/10/16 08:42 Dose: Not Given Latanoprost (Xalatan Opht) 0 ml OU HS [facility] Last Admin: 06/09/16 22:11 Dose: 2.5 ml Potassium Phos/Sodium Phos (Neutra-Phos) 1 pkt PO TIDCC [facility] Stop: 06/11/16 18:01 Last Admin: 06/10/16 10:07 Dose: 1 pkt Sodium Bicarbonate (Sodium Bicarbonate Tab) 650 mg PO Q6 [facility] Last Admin: 06/10/16 06:06 Dose: 650 mg Tamsulosin HCl (Flomax) 0.4 mg PO DAILY [facility] Last Admin: 06/10/16 10:07 Dose: 0.4 mg Physical Exam - Constitutional Appears: No Acute Distress, Chronically Ill - Head Exam Head Exam: ATRAUMATIC - Eye Exam Eye Exam: Normal appearance Pupil Exam: NORMAL ACCOMODATION - ENT Exam ENT Exam: Normal Exam - Neck Exam Neck exam: Positive for: Normal Inspection - Respiratory Exam Respiratory Exam: Decreased Breath Sounds - Cardiovascular Exam Cardiovascular Exam: Tachycardia - GI/Abdominal Exam GI & Abdominal Exam: Hypoactive Bowel Sounds - Rectal Exam Rectal Exam: Deferred - Extremities Exam Extremities exam: Positive for: normal inspection - Back Exam Back exam: NORMAL INSPECTION - Neurological Exam Neurological exam: Alert, Oriented x3 - Psychiatric Exam Psychiatric exam: Normal Affect, Normal Mood - Skin Skin Exam: Pallor Results - Vital Signs Recent Vital Signs: Last Vital Signs Temp 98 F 06/10/16 04:00 Pulse 67 06/10/16 07:00 Resp 12 06/10/16 07:00 BP 106/53 L 06/10/16 04:50 Pulse Ox 100 06/10/16 07:00 - Labs Result Diagrams: 06/10/16 06:38 06/10/16 06:36 Labs: Laboratory Results - last 24 hr 06/09/16 06/09/16 06/09/16 11:37 17:28 21:39 WBC 4.4 L RBC 2.96 L Hgb 8.4 L Hct 26.0 L MCV 87.6 MCH 28.4 MCHC 32.5 L RDW 15.5 H Plt Count 122 L D MPV 8.3 Neut % (Auto) Lymph % (Auto) [place] % (Auto) Eos % (Auto) Baso % (Auto) Neut # Lymph # [place] # Eos # Baso # Sodium Potassium Chloride Carbon Dioxide Anion Gap BUN Creatinine Est GFR ( Amer) Est GFR (Non-Af Amer) POC Glucose (mg/dL) 77 78 Random Glucose Calcium Phosphorus Magnesium Total Bilirubin AST ALT Alkaline Phosphatase Total Protein Albumin Globulin Albumin/Globulin Ratio 06/10/16 06/10/16 06/10/16 06:36 06:38 07:52 WBC 4.2 L RBC 2.79 L Hgb 8.1 L Hct 24.6 L MCV 88.2 MCH 29.0 MCHC 32.9 L RDW 16.0 H Plt Count 129 L MPV 8.2 Neut % (Auto) 57.3 Lymph % (Auto) 33.5 [place] % (Auto) 7.1 Eos % (Auto) 1.8 Baso % (Auto) 0.3 Neut # 2.4 Lymph # 1.4 [place] # 0.3 Eos # 0.1 Baso # 0.0 Sodium 145 Potassium 3.2 L Chloride 113 H Carbon Dioxide 21 L Anion Gap 14 BUN 11 Creatinine 1.0 Est GFR ( Amer) > 60 Est GFR (Non-Af Amer) > 60 POC Glucose (mg/dL) 85 Random Glucose 118 H Calcium 6.4 L Phosphorus 2.0 L Magnesium 1.6 Total Bilirubin 0.6 AST 14 L D ALT 23 Alkaline Phosphatase 43 Total Protein 4.1 L Albumin 1.8 L Globulin 2.3 Albumin/Globulin Ratio 0.8 L Assessment & Plan - Assessment and Plan (Free Text) Assessment: Code status Full Code. No advance directive on chart. PPS 30% I reviewed medical records, all diagnostic studies, examined and interviewed patient in the bed. Total time spent, 60 min. Patient is alert, oriented X 3 with affect that is appropriate. Skin and sclera are pale. Latest Hb 8.1. Patient is S/P many PRBCs tranfusions. No active bleeding on this admission noted, except last nigh small BM with trace of blood as per nurse. There is hypocalcemia noted. Chadwik's sign negative. Alb 1.8 and is being replaced. BP 108/48, HR 70, O2Sat 100 % NC. Lungs are with good air entry, no cough. Abdomen flat and soft. There is some peripheral edema noted. ROM to upper and lower extremities is limited due to weakness. Patient complains of itching to right arm where the PICC line is secured with tape. There are no signs of inflammation. In further interview with the patent,he denied any acute health issues. I called patient's daughter Mrs. Chris Oliva, and we agreed to meet on ICU around 1 pm today to further discuss goals of care. She was concerned with patient;s nutrition as he had no good food intake for while. I promised her would explain everything once we meet today. Impression * Patient is recovering from hypovolemic shock * There is still general weakness * Anemia, hb 8.1 * GI bleeding still persist but in much less amount Suggestion * Supportive care * Monitor for worsening of GI bleed * Promote good nutrition * Family meeting at 1 pm today for goals of care discursion Thank you for consulting Palliative Care
--- NOTE | 2016-06-10 12:41 | CP.CCUPN ---
<Supa Mclean - Last Filed: 06/10/16 12:34> CCU Subjective - Physician Review Subjective (Free Text): 05/23/16 18:00 Patient seen at [facility] with no acute issues. Patient had upper GI endoscopy today. Patient a bit lethargic afterwards with recommendations made.for diet advancement to clears once with improved mental status. ROS could not be obtained at the time due to somnolence. 05/26/16 14:47 Pt seen and examined in no acute distress. No significant events overnight per nursing. Patient somnolent at time of initial evaluation. Family present later on bedside. A ROS could not be obtained at this time due to somnolence. 05/27/16 07:32 Pt seen and examined in no acute distress. Patient more alert today and vocally responsive. Patient had an episode of melena this morning per nursing . Patient tolerating clears. Patient medically stable for transfer to telemetry floor. 06/03/16 15:32 Pt seen and examined with no acute events overnight per nursing. Patient had push enteroscopy today. He had large BM with melena afterwards. No complaints of headaches, subjective fevers or chills, nausea, vomiting, constipation, chest pain or palpitations at this time. 06/04/16 13:04 Pt seen and examined in no acute distress. Patient to have colonoscopy today. Pt resting comfortably in bed with no complaints at this time. He specifically denies weakness, headaches, subjective fevers or chills, nausea, vomiting, constipation, chest pain or palpitations at this time. 06/06/16 20:58 Patient seen at [facility] in no acute distress. Patient was readmitted to the ICU for subsequent hematochezia. Patient had urgent colonoscopy by GI due to findings on the bleeding scan. Patient is s/p colonoscopy with epinephrine and cautery to ulcerated sites at ileocolonic anastamosis. Pt tolerated procedure well. 06/09/16 15:05 Pt seen and examined in no acute distress. Pt states that he feels chilly and is thus bundled up. Patient had thee episodes of hematochezia (melena) during the overnight shift and then into morning rounds. Patient not aware that the stools are melena. Patient denies headaches, lightheadedness, light sensitivity , chest pain, palpitations, dyspnea, paresthesias, nausea or vomiting at this time. 06/10/16 12:34 Pt seen and examined in no acute distress. Pt had one scant maroon colored stool and then admitted to another stool ( melena) afterwards during the morning shift. Pt hard of hearing but able to deny a review of systems: denies palpitations, subjective fevers or chills, chest pain, palpitations at this time. CCU Objective - Vital Signs / Intake & Output Intake and Output (Last 8hrs): Intake & Output 06/09/16 06/10/16 06/10/16 22:59 06:59 14:59 Intake Total 680 880 85 Output Total 420 320 Balance 260 560 85 Weight 154 lb Intake: Intake, IV Amount 680 780 85 Right Distal Port PICC 80 80 10 Right Medial Port PICC 600 700 75 Oral 0 0 Other 100 Output: Urine 420 320 Urethral (Cardenas) 420 320 Other: # Bowel Movements 0 - Physical Exam Head: Positive for: Atraumatic, Normocephalic Pupils: Positive for: PERRL Extroacular Muscles: Positive for: EOMI Conjunctiva: Positive for: Normal Mouth: Positive for: Moist Mucous Membranes Neck: Positive for: Normal Range of Motion Respiratory/Chest: Positive for: Clear to Auscultation, Good Air Exchange. Negative for: Wheezes Cardiovascular: Positive for: Normal S1, S2 Abdomen: Positive for: Tenderness, Normal Bowel Sounds. Negative for: Peritoneal Signs Back: Positive for: Normal Inspection Upper Extremity: Positive for: Normal Inspection Lower Extremity: Positive for: Normal Inspection Neurological: Positive for: CN II-XII Intact Skin: Positive for: Warm, Dry Psychiatric: Positive for: Lethargic - Medications Active Medications: Active Medications Generic Name Dose Route Start Last Admin Trade Name Freq PRN Reason Stop Dose Admin Albumin Human 12.5 gm 06/09/16 23:45 06/10/16 05:49 Albumin Human 25% (12.5 Gm/50 Ml) IV 12.5 gm Q8 LASHA Administration Ferric Sodium Gluconate Complex 125 mg 06/09/16 10:30 06/10/16 10:06 Ferrlecit IVPB 06/17/16 10:31 125 mg DAILY LASHA Administration Fluconazole 50 mls @ 100 mls/hr 06/04/16 10:00 06/10/16 10:06 Diflucan Iv 100 Mg/50 Ml Ns IVPB 100 mls/hr DAILY LASHA Administration Potassium Phosphate 15 mmole/ 255 mls @ 42.5 mls/hr 06/10/16 09:00 06/10/16 10: 06 Sodium Chloride IVPB 06/10/16 14:59 42.5 mls/hr ONCE ONE Administration Insulin Aspart 0 unit 06/08/16 07:30 06/10/16 08:42 Novolog SC Not Given ACHS LASHA Protocol Latanoprost 0 ml 05/22/16 22:00 06/09/16 22:11 Xalatan Opht OU 2.5 ml HS LASHA Administration Pantoprazole Sodium 40 mg 06/11/16 10:00 Protonix Inj IVP DAILY LASHA Potassium Phos/Sodium Phos 1 pkt 06/03/16 18:23 06/10/16 10:07 Neutra-Phos PO 06/11/16 18:01 1 pkt TIDCC LASHA Administration Sodium Bicarbonate 650 mg 06/10/16 00:00 06/10/16 06:06 Sodium Bicarbonate Tab PO 650 mg Q6 LASHA Administration Tamsulosin HCl 0.4 mg 05/22/16 10:00 06/10/16 10:07 Flomax PO 0.4 mg DAILY LASHA Administration - Patient Studies Lab Studies: Lab Studies 06/10/16 06/10/16 06/10/16 Range/Units 07:52 06:38 06:36 WBC 4.2 L (4.8-10.8) K/uL RBC 2.79 L (4.40-5.90) Mil/uL Hgb 8.1 L (12.0-18.0) g/dL Hct 24.6 L (35.0-51.0) % MCV 88.2 (80.0-94.0) fL MCH 29.0 (27.0-31.0) pg MCHC 32.9 L (33.0-37.0) g/dL RDW 16.0 H (11.5-14.5) % Plt Count 129 L (130-400) K/uL MPV 8.2 (7.2-11.7) fL Neut % (Auto) 57.3 (50.0-75.0) % Lymph % (Auto) 33.5 (20.0-40.0) % [place] % (Auto) 7.1 (0.0-10.0) % Eos % (Auto) 1.8 (0.0-4.0) % Baso % (Auto) 0.3 (0.0-2.0) % Neut # 2.4 (1.8-7.0) K/uL Lymph # 1.4 (1.0-4.3) K/uL [place] # 0.3 (0.0-0.8) K/uL Eos # 0.1 (0.0-0.7) K/uL Baso # 0.0 (0.0-0.2) K/uL Sodium 145 (132-148) mmol/L Potassium 3.2 L (3.6-5.2) mmol/L Chloride 113 H (98-107) mmol/L Carbon Dioxide 21 L (22-30) mmol/L Anion Gap 14 (10-20) BUN 11 (9-20) mg/dL Creatinine 1.0 (0.8-1.5) MG/DL Est GFR ( Amer) > 60 Est GFR (Non-Af Amer) > 60 POC Glucose (mg/dL) 85 (65-110) mg/dL Random Glucose 118 H (75-110) mg/dL Calcium 6.4 L (8.6-10.4) mg/dl Phosphorus 2.0 L (2.5-4.5) mg/dL Magnesium 1.6 (1.6-2.3) mg/dL Total Bilirubin 0.6 (0.2-1.3) mg/dL AST 14 L D (17-59) U/L ALT 23 (21-72) U/L Alkaline Phosphatase 43 (38-126) U/L Total Protein 4.1 L (6.3-8.3) g/dL Albumin 1.8 L (3.5-5.0) g/dL Globulin 2.3 (2.2-3.9) gm/dL Albumin/Globulin Ratio 0.8 L (1.0-2.1) 06/09/16 06/09/16 Range/Units 21:39 17:28 WBC 4.4 L (4.8-10.8) K/uL RBC 2.96 L (4.40-5.90) Mil/uL Hgb 8.4 L (12.0-18.0) g/dL Hct 26.0 L (35.0-51.0) % MCV 87.6 (80.0-94.0) fL MCH 28.4 (27.0-31.0) pg MCHC 32.5 L (33.0-37.0) g/dL RDW 15.5 H (11.5-14.5) % Plt Count 122 L D (130-400) K/uL MPV 8.3 (7.2-11.7) fL Neut % (Auto) (50.0-75.0) % Lymph % (Auto) (20.0-40.0) % [place] % (Auto) (0.0-10.0) % Eos % (Auto) (0.0-4.0) % Baso % (Auto) (0.0-2.0) % Neut # (1.8-7.0) K/uL Lymph # (1.0-4.3) K/uL [place] # (0.0-0.8) K/uL Eos # (0.0-0.7) K/uL Baso # (0.0-0.2) K/uL Sodium (132-148) mmol/L Potassium (3.6-5.2) mmol/L Chloride (98-107) mmol/L Carbon Dioxide (22-30) mmol/L Anion Gap (10-20) BUN (9-20) mg/dL Creatinine (0.8-1.5) MG/DL Est GFR ( Amer) Est GFR (Non-Af Amer) POC Glucose (mg/dL) 78 (65-110) mg/dL Random Glucose (75-110) mg/dL Calcium (8.6-10.4) mg/dl Phosphorus (2.5-4.5) mg/dL Magnesium (1.6-2.3) mg/dL Total Bilirubin (0.2-1.3) mg/dL AST (17-59) U/L ALT (21-72) U/L Alkaline Phosphatase (38-126) U/L Total Protein (6.3-8.3) g/dL Albumin (3.5-5.0) g/dL Globulin (2.2-3.9) gm/dL Albumin/Globulin Ratio (1.0-2.1) Laboratory Results - last 24 hr 06/09/16 06/09/16 06/10/16 17:28 21:39 06:36 WBC 4.4 L RBC 2.96 L Hgb 8.4 L Hct 26.0 L MCV 87.6 MCH 28.4 MCHC 32.5 L RDW 15.5 H Plt Count 122 L D MPV 8.3 Neut % (Auto) Lymph % (Auto) [place] % (Auto) Eos % (Auto) Baso % (Auto) Neut # Lymph # [place] # Eos # Baso # Sodium 145 Potassium 3.2 L Chloride 113 H Carbon Dioxide 21 L Anion Gap 14 BUN 11 Creatinine 1.0 Est GFR ( Amer) > 60 Est GFR (Non-Af Amer) > 60 POC Glucose (mg/dL) 78 Random Glucose 118 H Calcium 6.4 L Phosphorus 2.0 L Magnesium 1.6 Total Bilirubin 0.6 AST 14 L D ALT 23 Alkaline Phosphatase 43 Total Protein 4.1 L Albumin 1.8 L Globulin 2.3 Albumin/Globulin Ratio 0.8 L 06/10/16 06/10/16 06:38 07:52 WBC 4.2 L RBC 2.79 L Hgb 8.1 L Hct 24.6 L MCV 88.2 MCH 29.0 MCHC 32.9 L RDW 16.0 H Plt Count 129 L MPV 8.2 Neut % (Auto) 57.3 Lymph % (Auto) 33.5 [place] % (Auto) 7.1 Eos % (Auto) 1.8 Baso % (Auto) 0.3 Neut # 2.4 Lymph # 1.4 [place] # 0.3 Eos # 0.1 Baso # 0.0 Sodium Potassium Chloride Carbon Dioxide Anion Gap BUN Creatinine Est GFR ( Amer) Est GFR (Non-Af Amer) POC Glucose (mg/dL) 85 Random Glucose Calcium Phosphorus Magnesium Total Bilirubin AST ALT Alkaline Phosphatase Total Protein Albumin Globulin Albumin/Globulin Ratio Fingerstick Blood Sugar Results: 115 Review of Systems - Review of Systems Review of Systems: see subjective Critical Care Progress Note - Nutrition Nutrition: Nutrition Category Date Time Status Liquid Diet [DIET] Diets 06/10/16 Breakfast Active Assessment/Plan - Assessment and Plan (Free Text) Assessment: 85 M with a past medical history of anemia, [place] complicated by CAD s/p 3 vessel CABG, moderate aortic stenosis, hypertension, hyperlipidemia presented with hypotension, weakness, and blood in the stool 05/22. Pt readmitted to ICU for episodes of significant hematochezia overnight. Patient has had extensive GI workup to date. Patient still has hematochezia but Hgb stable. Plan: Neuro: Neurochecks q 6 aaox3; hard of hearing Optho: Latanoprost OU HS LASHA Dorzolamide OU TID LASHA Brimonidine OU TID LASHA Cardio: Maintain SBP >110 Maintain HR 60-100 bpm Pulm: Maintain O2 saturation >92% 06/06 CXR biapical pleural thickening with upper lobe granulomatous changes. chronic interstitial lung markings. bilateral hilar prominence. patchy left basilar airspace opacity with questionable small left pleural effusion Tamsulosin 0.4 mg PO daily Endo: Diabetes Sliding scale - Novolog Accucheck q6 Maintain Euglycemia GI: Liquid diet; No further GI intervention or surgical intervention as patient may not be able to undergo procedure from a hemodynamic standpoint. 06/03 EGD: 2 cm hiatal hernia present. one large non-bleeding ulcer with clean ulcer base Class III found at duodenal bulb spanning duodenal sweep. improved compared to prior examination without any stigmata of recent bleeding. 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 Post-op diagnosis: marah esophagitis, duodenal ulcer, gastritis, hiatal hernia. Daily CMP 06/04 Colonoscopy: no active bleed, hemorrhoids, ulcerated mucosa at anastamosis site f/u EGD biopsy 06/05 GI Bleeding scan: findings suggestive of active GI bleeding likely at large bowel splenic flexure that extends to the descending colon. 06/06 Colonoscopy - per GI - 15 cc of epinephrine 0.1 mg/ml injections at ulcerated ileocolonic anastomotic site along with electro cautery for hemostasis. Pt s/p transfusions yesterday with appropriate response. Surgery on board to decide necc interventions. First off- angiography studies. F /U No further endoscopic interventions per GI as patient's recurrent bleeding has been successfully controlled each time. : Monitor I/Os Renal: BUN/Cr: WNL Monitor I/Os Daily CMP Heme: H&H stable Monitor 06/02 INR 1.2 06/02 PT 12.8 Daily CBC Ferrlecit on board MSK: PT/OT eval ID: sacral wound WBC decreased today MRSA positive nares Daily CBC Nystatin TOP TID LASHA fluconazole 100mg/50 ml NS 50 cc @ 100 cc/hr Palliative: Family mtg at 1 pm F/U Prophylaxis: DVT: SCDs GI: PPI IV daily <Tobi Laguna - Last Filed: 06/10/16 18:30> CCU Objective - Vital Signs / Intake & Output Intake and Output (Last 8hrs): Intake & Output 06/10/16 06/10/16 06/10/16 06:59 14:59 22:59 Intake Total 880 635 100 Output Total 320 350 50 Balance 560 285 50 Weight 154 lb Intake: Intake, IV Amount 780 535 Right Distal Port PICC 80 60 Right Medial Port PICC 700 475 Oral 0 100 100 Other 100 Output: Urine 320 350 50 Urethral (Cardenas) 320 350 50 - Medications Active Medications: Active Medications Generic Name Dose Route Start Last Admin Trade Name Freq PRN Reason Stop Dose Admin Albumin Human 12.5 gm 06/09/16 23:45 06/10/16 13:49 Albumin Human 25% (12.5 Gm/50 Ml) IV 12.5 gm Q8 LASHA Administration Ferric Sodium Gluconate Complex 125 mg 06/09/16 10:30 06/10/16 10:06 Ferrlecit IVPB 06/17/16 10:31 125 mg DAILY LASHA Administration Fluconazole 50 mls @ 100 mls/hr 06/04/16 10:00 06/10/16 10:06 Diflucan Iv 100 Mg/50 Ml Ns IVPB 100 mls/hr DAILY LASHA Administration Insulin Aspart 0 unit 06/08/16 07:30 06/10/16 16:35 Novolog SC Not Given ACHS LASHA Protocol Latanoprost 0 ml 05/22/16 22:00 06/09/16 22:11 Xalatan Opht OU 2.5 ml HS LASHA Administration Pantoprazole Sodium 40 mg 06/11/16 10:00 Protonix Inj IVP DAILY LASHA Potassium Phos/Sodium Phos 1 pkt 06/03/16 18:23 06/10/16 18:02 Neutra-Phos PO 06/11/16 18:01 1 pkt TIDCC LASHA Administration Sodium Bicarbonate 650 mg 06/10/16 00:00 06/10/16 17:44 Sodium Bicarbonate Tab PO 650 mg Q6 LASHA Administration Tamsulosin HCl 0.4 mg 05/22/16 10:00 06/10/16 10:07 Flomax PO 0.4 mg DAILY LASHA Administration - Patient Studies Lab Studies: Lab Studies 06/10/16 06/10/16 06/10/16 Range/Units 16:11 11:47 07:52 WBC (4.8-10.8) K/uL RBC (4.40-5.90) Mil/uL Hgb (12.0-18.0) g/dL Hct (35.0-51.0) % MCV (80.0-94.0) fL MCH (27.0-31.0) pg MCHC (33.0-37.0) g/dL RDW (11.5-14.5) % Plt Count (130-400) K/uL MPV (7.2-11.7) fL Neut % (Auto) (50.0-75.0) % Lymph % (Auto) (20.0-40.0) % [place] % (Auto) (0.0-10.0) % Eos % (Auto) (0.0-4.0) % Baso % (Auto) (0.0-2.0) % Neut # (1.8-7.0) K/uL Lymph # (1.0-4.3) K/uL [place] # (0.0-0.8) K/uL Eos # (0.0-0.7) K/uL Baso # (0.0-0.2) K/uL Sodium (132-148) mmol/L Potassium (3.6-5.2) mmol/L Chloride (98-107) mmol/L Carbon Dioxide (22-30) mmol/L Anion Gap (10-20) BUN (9-20) mg/dL Creatinine (0.8-1.5) MG/DL Est GFR ( Amer) Est GFR (Non-Af Amer) POC Glucose (mg/dL) 98 130 H 85 (65-110) mg/dL Random Glucose (75-110) mg/dL Calcium (8.6-10.4) mg/dl Phosphorus (2.5-4.5) mg/dL Magnesium (1.6-2.3) mg/dL Total Bilirubin (0.2-1.3) mg/dL AST (17-59) U/L ALT (21-72) U/L Alkaline Phosphatase (38-126) U/L Total Protein (6.3-8.3) g/dL Albumin (3.5-5.0) g/dL Globulin (2.2-3.9) gm/dL Albumin/Globulin Ratio (1.0-2.1) 06/10/16 06/10/16 06/09/16 Range/Units 06:38 06:36 21:39 WBC 4.2 L (4.8-10.8) K/uL RBC 2.79 L (4.40-5.90) Mil/uL Hgb 8.1 L (12.0-18.0) g/dL Hct 24.6 L (35.0-51.0) % MCV 88.2 (80.0-94.0) fL MCH 29.0 (27.0-31.0) pg MCHC 32.9 L (33.0-37.0) g/dL RDW 16.0 H (11.5-14.5) % Plt Count 129 L (130-400) K/uL MPV 8.2 (7.2-11.7) fL Neut % (Auto) 57.3 (50.0-75.0) % Lymph % (Auto) 33.5 (20.0-40.0) % [place] % (Auto) 7.1 (0.0-10.0) % Eos % (Auto) 1.8 (0.0-4.0) % Baso % (Auto) 0.3 (0.0-2.0) % Neut # 2.4 (1.8-7.0) K/uL Lymph # 1.4 (1.0-4.3) K/uL [place] # 0.3 (0.0-0.8) K/uL Eos # 0.1 (0.0-0.7) K/uL Baso # 0.0 (0.0-0.2) K/uL Sodium 145 (132-148) mmol/L Potassium 3.2 L (3.6-5.2) mmol/L Chloride 113 H (98-107) mmol/L Carbon Dioxide 21 L (22-30) mmol/L Anion Gap 14 (10-20) BUN 11 (9-20) mg/dL Creatinine 1.0 (0.8-1.5) MG/DL Est GFR ( Amer) > 60 Est GFR (Non-Af Amer) > 60 POC Glucose (mg/dL) 78 (65-110) mg/dL Random Glucose 118 H (75-110) mg/dL Calcium 6.4 L (8.6-10.4) mg/dl Phosphorus 2.0 L (2.5-4.5) mg/dL Magnesium 1.6 (1.6-2.3) mg/dL Total Bilirubin 0.6 (0.2-1.3) mg/dL AST 14 L D (17-59) U/L ALT 23 (21-72) U/L Alkaline Phosphatase 43 (38-126) U/L Total Protein 4.1 L (6.3-8.3) g/dL Albumin 1.8 L (3.5-5.0) g/dL Globulin 2.3 (2.2-3.9) gm/dL Albumin/Globulin Ratio 0.8 L (1.0-2.1) Laboratory Results - last 24 hr 06/09/16 06/10/16 06/10/16 21:39 06:36 06:38 WBC 4.2 L RBC 2.79 L Hgb 8.1 L Hct 24.6 L MCV 88.2 MCH 29.0 MCHC 32.9 L RDW 16.0 H Plt Count 129 L MPV 8.2 Neut % (Auto) 57.3 Lymph % (Auto) 33.5 [place] % (Auto) 7.1 Eos % (Auto) 1.8 Baso % (Auto) 0.3 Neut # 2.4 Lymph # 1.4 [place] # 0.3 Eos # 0.1 Baso # 0.0 Sodium 145 Potassium 3.2 L Chloride 113 H Carbon Dioxide 21 L Anion Gap 14 BUN 11 Creatinine 1.0 Est GFR ( Amer) > 60 Est GFR (Non-Af Amer) > 60 POC Glucose (mg/dL) 78 Random Glucose 118 H Calcium 6.4 L Phosphorus 2.0 L Magnesium 1.6 Total Bilirubin 0.6 AST 14 L D ALT 23 Alkaline Phosphatase 43 Total Protein 4.1 L Albumin 1.8 L Globulin 2.3 Albumin/Globulin Ratio 0.8 L 06/10/16 06/10/16 06/10/16 07:52 11:47 16:11 WBC RBC Hgb Hct MCV MCH MCHC RDW Plt Count MPV Neut % (Auto) Lymph % (Auto) [place] % (Auto) Eos % (Auto) Baso % (Auto) Neut # Lymph # [place] # Eos # Baso # Sodium Potassium Chloride Carbon Dioxide Anion Gap BUN Creatinine Est GFR ( Amer) Est GFR (Non-Af Amer) POC Glucose (mg/dL) 85 130 H 98 Random Glucose Calcium Phosphorus Magnesium Total Bilirubin AST ALT Alkaline Phosphatase Total Protein Albumin Globulin Albumin/Globulin Ratio Critical Care Progress Note - Nutrition Nutrition: Nutrition Category Date Time Status Liquid Diet [DIET] Diets 06/10/16 Breakfast Active Assessment/Plan (1) Gastrointestinal hemorrhage Current Visit: Yes Status: Acute Comment: Transfuse packed RBCs as needed Transfuse 2 units of FFP Platelet count 107 with 94% platelets functional Possible surgery today or in the a.m. Continue Protonix (2) Anemia Current Visit: No Status: Acute Attending/Attestation - Attestation I have personally seen and examined this patient.: Yes I have fully participated in the care of the patient.: Yes I have reviewed all pertinent clinical information: Yes Notes (Text): 06/10/16 18:28 Patient seen and examined in the intensive care unit. Case discussed with STAFF in the morning rounds. 85 M with a past medical history of anemia, [place] complicated by CAD s/p 3 vessel CABG, moderate aortic stenosis, hypertension, hyperlipidemia presented with hypotension, weakness, and blood in the stool 05/22. Pt readmitted to ICU for episodes of significant hematochezia overnight. Patient has had extensive GI workup to date. Patient still has hematochezia but Hgb stable
--- NOTE | 2016-06-10 14:18 | CP.PCM.PN ---
Subjective - Date & Time of Evaluation Date of Evaluation: 06/10/16 Time of Evaluation: 08:40 - Subjective Subjective: Remains generally weak and lethargic A&O x3 Hard of hearing poor vision (Chronic) Denies and CP or GI discomfort Reccurrent GI Bleed: Objective - Vital Signs/Intake and Output Vital Signs (last 24 hours): Temp Pulse Resp BP Pulse Ox 98 F 67 12 106/53 L 100 06/10/16 04:00 06/10/16 07:00 06/10/16 07:00 06/10/16 04:50 06/10/16 07:00 Intake and Output: 06/10/16 06/10/16 06:59 18:59 Intake Total 1220 85 Output Total 500 Balance 720 85 - Medications Medications: Current Medications Albumin Human (Albumin Human 25% (12.5 Gm/50 Ml)) 12.5 gm IV Q8 REPLACED BY [facility] Last Admin: 06/10/16 13:49 Dose: 12.5 gm Ferric Sodium Gluconate Complex (Ferrlecit) 125 mg IVPB DAILY REPLACED BY [facility] Stop: 06/17/16 10:31 Last Admin: 06/10/16 10:06 Dose: 125 mg Fluconazole (Diflucan Iv 100 Mg/50 Ml Ns) 50 mls @ 100 mls/hr IVPB DAILY REPLACED BY [facility] Last Admin: 06/10/16 10:06 Dose: 100 mls/hr Potassium Phosphate 15 mmole/ (Sodium Chloride) 255 mls @ 42.5 mls/hr IVPB ONCE ONE Stop: 06/10/16 14:59 Last Admin: 06/10/16 10:06 Dose: 42.5 mls/hr Insulin Aspart (Novolog) 0 unit SC ACHS REPLACED BY [facility] PRN Reason: Protocol Last Admin: 06/10/16 13:52 Dose: Not Given Latanoprost (Xalatan Opht) 0 ml OU HS REPLACED BY [facility] Last Admin: 06/09/16 22:11 Dose: 2.5 ml Pantoprazole Sodium (Protonix Inj) 40 mg IVP DAILY REPLACED BY [facility] Potassium Phos/Sodium Phos (Neutra-Phos) 1 pkt PO TIDCC LASHA Stop: 06/11/16 18:01 Last Admin: 06/10/16 13:52 Dose: 1 pkt Sodium Bicarbonate (Sodium Bicarbonate Tab) 650 mg PO Q6 REPLACED BY [facility] Last Admin: 06/10/16 13:49 Dose: 650 mg Tamsulosin HCl (Flomax) 0.4 mg PO DAILY LASHA Last Admin: 06/10/16 10:07 Dose: 0.4 mg - Labs Labs: 06/10/16 06:38 06/10/16 06:36 PT 12.3 SECONDS (9.7-12.2) H 06/09/16 06:45 INR 1.1 06/09/16 06:45 APTT 31 SECONDS (21-34) 06/09/16 06:45 - Constitutional Appears: No Acute Distress - Head Exam Head Exam: ATRAUMATIC, NORMAL INSPECTION, NORMOCEPHALIC - Eye Exam Eye Exam: EOMI. absent: Scleral icterus - ENT Exam ENT Exam: Mucous Membranes Moist, Normal Oropharynx - Neck Exam Neck Exam: Normal Inspection. absent: Tenderness - Respiratory Exam Respiratory Exam: Clear to Ausculation Bilateral, NORMAL BREATHING PATTERN. absent: Rhonchi, Wheezes, Respiratory Distress - Cardiovascular Exam Cardiovascular Exam: REGULAR RHYTHM, +S1, +S2. absent: JVD, Murmur - GI/Abdominal Exam GI & Abdominal Exam: Soft, Normal Bowel Sounds. absent: Tenderness - Extremities Exam Extremities Exam: Normal Inspection. 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 s/p FFP and platelet transfusion for refractory anemia and recurrent GI bleed. Off antiplatelets for now. Patient may not be going for any surgical intervention at this time, there is no futher cardiac work up at this time. We will following along to assist in fluid management for chronic systolic CHF CADIAC: * Chronic compensated Mod LV systolic dysfunction, mild MR, Mod , distal septal and anterior akinesia due to chronic CAD s/p CABG in 2012. * Hx of known mild-mod LV dysfunction EF 35-40% due to ischemic cardiomyopathy * Euvolemic at present * BP and HE ar apporiate * Lower extrem edema is improved: * CKD stage 3A chronic * No AFIB seen on any EKG or documented strips Optimize medical therapy with BB, JERROD-I or ARB, Statin and resume ASA or Plavix when safe from GI standpoint.
--- NOTE | 2016-06-10 19:12 | CP.PCM.PN ---
Subjective - Date & Time of Evaluation Date of Evaluation: 06/10/16 Time of Evaluation: 08:30 - Subjective Subjective: clinically same Objective - Vital Signs/Intake and Output Vital Signs (last 24 hours): Temp Pulse Resp BP Pulse Ox 98.0 F 71 15 94/51 L 100 06/10/16 16:00 06/10/16 18:00 06/10/16 18:00 06/10/16 14:51 06/10/16 18:00 Intake and Output: 06/10/16 06/11/16 18:59 06:59 Intake Total 785 Output Total 560 Balance 225 - Medications Medications: Current Medications Albumin Human (Albumin Human 25% (12.5 Gm/50 Ml)) 12.5 gm IV Q8 [facility] Last Admin: 06/10/16 13:49 Dose: 12.5 gm Ferric Sodium Gluconate Complex (Ferrlecit) 125 mg IVPB DAILY [facility] Stop: 06/17/16 10:31 Last Admin: 06/10/16 10:06 Dose: 125 mg Fluconazole (Diflucan Iv 100 Mg/50 Ml Ns) 50 mls @ 100 mls/hr IVPB DAILY [facility] Last Admin: 06/10/16 10:06 Dose: 100 mls/hr Insulin Aspart (Novolog) 0 unit SC ACHS [facility] PRN Reason: Protocol Last Admin: 06/10/16 16:35 Dose: Not Given Latanoprost (Xalatan Opht) 0 ml OU HS [facility] Last Admin: 06/09/16 22:11 Dose: 2.5 ml Pantoprazole Sodium (Protonix Inj) 40 mg IVP DAILY [facility] Potassium Phos/Sodium Phos (Neutra-Phos) 1 pkt PO TIDCC [facility] Stop: 06/11/16 18:01 Last Admin: 06/10/16 18:02 Dose: 1 pkt Sodium Bicarbonate (Sodium Bicarbonate Tab) 650 mg PO Q6 [facility] Last Admin: 06/10/16 17:44 Dose: 650 mg Tamsulosin HCl (Flomax) 0.4 mg PO DAILY [facility] Last Admin: 06/10/16 10:07 Dose: 0.4 mg - Labs Labs: 06/10/16 06:38 06/10/16 06:36 PT 12.3 SECONDS (9.7-12.2) H 06/09/16 06:45 INR 1.1 06/09/16 06:45 APTT 31 SECONDS (21-34) 06/09/16 06:45 - Constitutional Appears: Well - Head Exam Head Exam: ATRAUMATIC, NORMAL INSPECTION, NORMOCEPHALIC - Eye Exam Eye Exam: EOMI, Normal appearance, PERRL Pupil Exam: NORMAL ACCOMODATION, PERRL - ENT Exam ENT Exam: Mucous Membranes Moist, Normal Exam - Neck Exam Neck Exam: Full ROM, Normal Inspection. absent: Lymphadenopathy - Respiratory Exam Respiratory Exam: Decreased Breath Sounds - Cardiovascular Exam Cardiovascular Exam: REGULAR RHYTHM, +S1, +S2 - GI/Abdominal Exam GI & Abdominal Exam: Soft, Diminished Bowel Sounds - Rectal Exam Rectal Exam: Deferred Assessment and Plan - Assessment and Plan (Free Text) Plan: case seen and discussed with staff and resident mx as agreed discused with edilberto acosta michelle as ordered may need surg hgb stable s/p ffp and prbcs michelle as ordered
[2016-06-10] MEDS: Latanoprost 2.5 ml Opht Soln OU SCH (21:01)
[2016-06-10] MEDS: Potassium Chloride 10 mEq ER Tab PO SCH ×2 (21:01→23:31)
[2016-06-11] MEDS: Albumin Human 25% (12.5 gm/50 ml) IV SCH ×3 (05:01→21:24)
[2016-06-11 06:28] LABS: BASO % 0.3 % (0.0-2.0); EOS # 0.1 K/uL (0.0-0.7); EOS % 1.6 % (0.0-4.0); HEMATOCRIT 23.7 % (35.0-51.0); LYMPH # 1.5 K/uL (1.0-4.3); LYMPH % 33.8 % (20.0-40.0); MEAN CELL VOLUME 88.5 fL (80.0-94.0); MEAN CORPUSCULAR HEMOGLOBIN 29.2 pg (27.0-31.0); MEAN PLATELET VOLUME 8.3 fL (7.2-11.7); MONO # 0.3 K/uL (0.0-0.8); MONO % 7.3 % (0.0-10.0); NRBC % 0.1 % (0.0-2.0); RED CELL DISTRIBUTION WIDTH 15.9 % (11.5-14.5); WHITE BLOOD COUNT 4.4 K/uL (4.8-10.8)
[2016-06-11 06:34] LABS: CHLORIDE 114 mmol/L (98-107); POTASSIUM 4.5 mmol/L (3.6-5.2); SODIUM 146 mmol/L (132-148)
[2016-06-11 06:36] LABS: GFR AFRICAN-AMERICAN > 60
[2016-06-11 06:37] LABS: ALKALINE PHOSPHATASE 45 U/L (38-126); ALT/SGPT 20 U/L (21-72); AST/SGOT 13 U/L (17-59); BILIRUBIN,TOTAL 0.5 mg/dL (0.2-1.3); BLOOD UREA NITROGEN 8 mg/dL (9-20); CARBON DIOXIDE 20 mmol/L (22-30); GLUCOSE,RANDOM 76 mg/dL (75-110); PHOSPHOROUS 2.1 mg/dL (2.5-4.5); TOTAL PROTEIN 4.7 g/dL (6.3-8.3)
[2016-06-11 06:38] LABS: MAGNESIUM 1.6 mg/dL (1.6-2.3)
--- NOTE | 2016-06-11 07:23 | CP.CCUPN ---
CCU Subjective - Physician Review Subjective (Free Text): 05/23/16 18:00 Patient seen at [facility] with no acute issues. Patient had upper GI endoscopy today. Patient a bit lethargic afterwards with recommendations made.for diet advancement to clears once with improved mental status. ROS could not be obtained at the time due to somnolence. 05/26/16 14:47 Pt seen and examined in no acute distress. No significant events overnight per nursing. Patient somnolent at time of initial evaluation. Family present later on bedside. A ROS could not be obtained at this time due to somnolence. 05/27/16 07:32 Pt seen and examined in no acute distress. Patient more alert today and vocally responsive. Patient had an episode of melena this morning per nursing . Patient tolerating clears. Patient medically stable for transfer to telemetry floor. 06/03/16 15:32 Pt seen and examined with no acute events overnight per nursing. Patient had push enteroscopy today. He had large BM with melena afterwards. No complaints of headaches, subjective fevers or chills, nausea, vomiting, constipation, chest pain or palpitations at this time. 06/04/16 13:04 Pt seen and examined in no acute distress. Patient to have colonoscopy today. Pt resting comfortably in bed with no complaints at this time. He specifically denies weakness, headaches, subjective fevers or chills, nausea, vomiting, constipation, chest pain or palpitations at this time. 06/06/16 20:58 Patient seen at [facility] in no acute distress. Patient was readmitted to the ICU for subsequent hematochezia. Patient had urgent colonoscopy by GI due to findings on the bleeding scan. Patient is s/p colonoscopy with epinephrine and cautery to ulcerated sites at ileocolonic anastamosis. Pt tolerated procedure well. 06/09/16 15:05 Pt seen and examined in no acute distress. Pt states that he feels chilly and is thus bundled up. Patient had thee episodes of hematochezia (melena) during the overnight shift and then into morning rounds. Patient not aware that the stools are melena. Patient denies headaches, lightheadedness, light sensitivity , chest pain, palpitations, dyspnea, paresthesias, nausea or vomiting at this time. 06/10/16 12:34 Pt seen and examined in no acute distress. Pt had one scant maroon colored stool and then admitted to another stool ( melena) afterwards during the morning shift. Pt hard of hearing but able to deny a review of systems: denies palpitations, subjective fevers or chills, chest pain, palpitations at this time. 06/11/16 15:45 Pt seen and examined. Patient had two scant dark tarry stool episodes. Patient out of bed to chair. Patient denies weakness, subjective fevers or chills, nausea, vomiting, diarrhea, constipation, chest pain or palpitations at this time. CCU Objective - Vital Signs / Intake & Output Vital Signs (Last 4 hours): Vital Signs Temp Pulse Resp BP Pulse Ox 06/11/16 07:00 69 11 L 100 06/11/16 06:51 71 12 111/64 100 06/11/16 06:07 75 13 100 06/11/16 06:00 69 12 100 06/11/16 05:51 70 12 112/60 100 06/11/16 05:14 69 12 100 06/11/16 05:00 71 13 100 06/11/16 04:51 71 12 110/61 100 06/11/16 04:15 70 13 100 06/11/16 04:00 98.5 F 70 13 99 06/11/16 03:51 72 14 109/61 99 Intake and Output (Last 8hrs): Intake & Output 06/10/16 06/11/16 06/11/16 22:59 06:59 14:59 Intake Total 400 200 Output Total 345 405 45 Balance 55 -205 -45 Weight 156 lb Intake: Intake, IV Amount 50 50 Right Medial Port PICC 50 50 Oral 350 150 Output: Urine 345 405 45 Urethral (Cardenas) 345 405 45 Other: # Bowel Movements 1 - Physical Exam Head: Positive for: Atraumatic, Normocephalic Pupils: Positive for: PERRL Extroacular Muscles: Positive for: EOMI Conjunctiva: Positive for: Normal Mouth: Positive for: Moist Mucous Membranes Neck: Positive for: Normal Range of Motion Respiratory/Chest: Positive for: Clear to Auscultation, Good Air Exchange. Negative for: Wheezes Cardiovascular: Positive for: Normal S1, S2 Abdomen: Positive for: Tenderness, Normal Bowel Sounds. Negative for: Peritoneal Signs Back: Positive for: Normal Inspection Upper Extremity: Positive for: Normal Inspection Lower Extremity: Positive for: Normal Inspection Neurological: Positive for: CN II-XII Intact Skin: Positive for: Warm, Dry Psychiatric: Positive for: Lethargic - Medications Active Medications: Active Medications Generic Name Dose Route Start Last Admin Trade Name Freq PRN Reason Stop Dose Admin Albumin Human 12.5 gm 06/09/16 23:45 06/11/16 05:01 Albumin Human 25% (12.5 Gm/50 Ml) IV 12.5 gm Q8 [facility] Administration Ferric Sodium Gluconate Complex 125 mg 06/09/16 10:30 06/10/16 10:06 Ferrlecit IVPB 06/17/16 10:31 125 mg DAILY [facility] Administration Fluconazole 50 mls @ 100 mls/hr 06/04/16 10:00 06/10/16 10:06 Diflucan Iv 100 Mg/50 Ml Ns IVPB 100 mls/hr DAILY [facility] Administration Insulin Aspart 0 unit 06/08/16 07:30 06/10/16 21:01 Novolog SC Not Given ACHS [facility] Protocol Latanoprost 0 ml 05/22/16 22:00 06/10/16 21:01 Xalatan Opht OU 2.5 ml HS [facility] Administration Pantoprazole Sodium 40 mg 06/11/16 10:00 Protonix Inj IVP DAILY [facility] Potassium Phos/Sodium Phos 1 pkt 06/11/16 22:00 Neutra-Phos PO 0800,1200,1700,2200 [facility] Sodium Bicarbonate 650 mg 06/10/16 00:00 06/11/16 05:02 Sodium Bicarbonate Tab PO 650 mg Q6 [facility] Administration Tamsulosin HCl 0.4 mg 05/22/16 10:00 06/10/16 10:07 Flomax PO 0.4 mg DAILY [facility] Administration - Patient Studies Lab Studies: Lab Studies 06/11/16 06/11/16 06/10/16 Range/Units 06:21 06:17 21:37 WBC 4.4 L (4.8-10.8) K/uL RBC 2.68 L (4.40-5.90) Mil/uL Hgb 7.8 L (12.0-18.0) g/dL Hct 23.7 L (35.0-51.0) % MCV 88.5 (80.0-94.0) fL MCH 29.2 (27.0-31.0) pg MCHC 33.0 (33.0-37.0) g/dL RDW 15.9 H (11.5-14.5) % Plt Count 151 (130-400) K/uL MPV 8.3 (7.2-11.7) fL Neut % (Auto) 57.0 (50.0-75.0) % Lymph % (Auto) 33.8 (20.0-40.0) % Edwards % (Auto) 7.3 (0.0-10.0) % Eos % (Auto) 1.6 (0.0-4.0) % Baso % (Auto) 0.3 (0.0-2.0) % Neut # 2.5 (1.8-7.0) K/uL Lymph # 1.5 (1.0-4.3) K/uL Edwards # 0.3 (0.0-0.8) K/uL Eos # 0.1 (0.0-0.7) K/uL Baso # 0.0 (0.0-0.2) K/uL Sodium 146 (132-148) mmol/L Potassium 4.5 (3.6-5.2) mmol/L Chloride 114 H (98-107) mmol/L Carbon Dioxide 20 L (22-30) mmol/L Anion Gap 17 (10-20) BUN 8 L (9-20) mg/dL Creatinine 1.0 (0.8-1.5) MG/DL Est GFR ( Amer) > 60 Est GFR (Non-Af Amer) > 60 POC Glucose (mg/dL) 133 H (65-110) mg/dL Random Glucose 76 (75-110) mg/dL Calcium 7.0 L (8.6-10.4) mg/dl Phosphorus 2.1 L (2.5-4.5) mg/dL Magnesium 1.6 (1.6-2.3) mg/dL Total Bilirubin 0.5 (0.2-1.3) mg/dL AST 13 L (17-59) U/L ALT 20 L (21-72) U/L Alkaline Phosphatase 45 (38-126) U/L Total Protein 4.7 L (6.3-8.3) g/dL Albumin 2.3 L D (3.5-5.0) g/dL Globulin 2.4 (2.2-3.9) gm/dL Albumin/Globulin Ratio 1.0 (1.0-2.1) 06/10/16 06/10/16 06/10/16 Range/Units 16:11 11:47 07:52 WBC (4.8-10.8) K/uL RBC (4.40-5.90) Mil/uL Hgb (12.0-18.0) g/dL Hct (35.0-51.0) % MCV (80.0-94.0) fL MCH (27.0-31.0) pg MCHC (33.0-37.0) g/dL RDW (11.5-14.5) % Plt Count (130-400) K/uL MPV (7.2-11.7) fL Neut % (Auto) (50.0-75.0) % Lymph % (Auto) (20.0-40.0) % Edwards % (Auto) (0.0-10.0) % Eos % (Auto) (0.0-4.0) % Baso % (Auto) (0.0-2.0) % Neut # (1.8-7.0) K/uL Lymph # (1.0-4.3) K/uL Edwards # (0.0-0.8) K/uL Eos # (0.0-0.7) K/uL Baso # (0.0-0.2) K/uL Sodium (132-148) mmol/L Potassium (3.6-5.2) mmol/L Chloride (98-107) mmol/L Carbon Dioxide (22-30) mmol/L Anion Gap (10-20) BUN (9-20) mg/dL Creatinine (0.8-1.5) MG/DL Est GFR ( Amer) Est GFR (Non-Af Amer) POC Glucose (mg/dL) 98 130 H 85 (65-110) mg/dL Random Glucose (75-110) mg/dL Calcium (8.6-10.4) mg/dl Phosphorus (2.5-4.5) mg/dL Magnesium (1.6-2.3) mg/dL Total Bilirubin (0.2-1.3) mg/dL AST (17-59) U/L ALT (21-72) U/L Alkaline Phosphatase (38-126) U/L Total Protein (6.3-8.3) g/dL Albumin (3.5-5.0) g/dL Globulin (2.2-3.9) gm/dL Albumin/Globulin Ratio (1.0-2.1) Laboratory Results - last 24 hr 06/10/16 06/10/16 06/10/16 07:52 11:47 16:11 WBC RBC Hgb Hct MCV MCH MCHC RDW Plt Count MPV Neut % (Auto) Lymph % (Auto) Edwards % (Auto) Eos % (Auto) Baso % (Auto) Neut # Lymph # Edwards # Eos # Baso # Sodium Potassium Chloride Carbon Dioxide Anion Gap BUN Creatinine Est GFR ( Amer) Est GFR (Non-Af Amer) POC Glucose (mg/dL) 85 130 H 98 Random Glucose Calcium Phosphorus Magnesium Total Bilirubin AST ALT Alkaline Phosphatase Total Protein Albumin Globulin Albumin/Globulin Ratio 06/10/16 06/11/16 06/11/16 21:37 06:17 06:21 WBC 4.4 L RBC 2.68 L Hgb 7.8 L Hct 23.7 L MCV 88.5 MCH 29.2 MCHC 33.0 RDW 15.9 H Plt Count 151 MPV 8.3 Neut % (Auto) 57.0 Lymph % (Auto) 33.8 Edwards % (Auto) 7.3 Eos % (Auto) 1.6 Baso % (Auto) 0.3 Neut # 2.5 Lymph # 1.5 Edwards # 0.3 Eos # 0.1 Baso # 0.0 Sodium 146 Potassium 4.5 Chloride 114 H Carbon Dioxide 20 L Anion Gap 17 BUN 8 L Creatinine 1.0 Est GFR ( Amer) > 60 Est GFR (Non-Af Amer) > 60 POC Glucose (mg/dL) 133 H Random Glucose 76 Calcium 7.0 L Phosphorus 2.1 L Magnesium 1.6 Total Bilirubin 0.5 AST 13 L ALT 20 L Alkaline Phosphatase 45 Total Protein 4.7 L Albumin 2.3 L D Globulin 2.4 Albumin/Globulin Ratio 1.0 Fingerstick Blood Sugar Results: 115 Review of Systems - Review of Systems Review of Systems: see subjective Critical Care Progress Note - Nutrition Nutrition: Nutrition Category Date Time Status Liquid Diet [DIET] Diets 06/10/16 Breakfast Active Assessment/Plan - Assessment and Plan (Free Text) Assessment: 85 M with a past medical history of anemia, [place] complicated by CAD s/p 3 vessel CABG, moderate aortic stenosis, hypertension, hyperlipidemia presented with hypotension, weakness, and blood in the stool 05/22. Pt readmitted to ICU for episodes of significant hematochezia overnight. Patient has had extensive GI workup to date. Patient still has hematochezia but Hgb stable. Plan: Neuro: Neurochecks q 6 aaox3; hard of hearing Optho: Latanoprost OU HS [facility] Dorzolamide OU TID [facility] Brimonidine OU TID [facility] Cardio: Maintain SBP >110 Maintain HR 60-100 bpm Optimize therapy as needed when patient can tolerate per Cardio Pulm: Maintain O2 saturation >92% 06/06 CXR biapical pleural thickening with upper lobe granulomatous changes. chronic interstitial lung markings. bilateral hilar prominence. patchy left basilar airspace opacity with questionable small left pleural effusion Tamsulosin 0.4 mg PO daily Endo: Diabetes Sliding scale - Novolog Accucheck q6 Maintain Euglycemia GI: Liquid diet; No further GI intervention or surgical intervention as patient may not be able to undergo procedure from a hemodynamic standpoint. Family to consider second opinion regarding need for surgical intervention. 06/03 EGD: 2 cm hiatal hernia present. one large non-bleeding ulcer with clean ulcer base Class III found at duodenal bulb spanning duodenal sweep. improved compared to prior examination without any stigmata of recent bleeding. 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 Post-op diagnosis: marah esophagitis, duodenal ulcer, gastritis, hiatal hernia. Daily CMP 06/04 Colonoscopy: no active bleed, hemorrhoids, ulcerated mucosa at anastomosis site f/u EGD biopsy 06/05 GI Bleeding scan: findings suggestive of active GI bleeding likely at large bowel splenic flexure that extends to the descending colon. 06/06 Colonoscopy - per GI - 15 cc of epinephrine 0.1 mg/ml injections at ulcerated ileocolonic anastomotic site along with electro cautery for hemostasis. Pt s/p transfusions yesterday with appropriate response. Surgery on board to decide necc interventions. First off- angiography studies. F /U No further endoscopic interventions per GI as patient's recurrent bleeding has been successfully controlled each time. : Monitor I/Os Renal: BUN/Cr: WNL Monitor I/Os Daily CMP Heme: Hgb 7.8 today Monitor 06/02 INR 1.2 06/02 PT 12.8 Daily CBC Ferrlecit on board MSK: PT/OT eval ID: sacral wound WBC decreased today MRSA positive nares Daily CBC Nystatin TOP TID [facility] fluconazole 100mg/50 ml NS 50 cc @ 100 cc/hr for esophageal candiasis Palliative: Discussions regarding second opinion for surgical intervention. When patient is discharged, family would rather patient goes to LTACH instead of a residential F/U Prophylaxis: DVT: SCDs. VTE contraindicated bc of GI bleed GI: PPI IV daily
[2016-06-11] MEDS ORDERED: Sodium Phosphate 15 MMOLE in Sodium Chloride 0.9% 250 ML IVPB ONE (07:26)
[2016-06-11] MEDS: (Novolog) Insulin Aspart, Recombinant 100 u/ml 10 ml vial SC SCH ×4 (08:07→21:25)
--- NOTE | 2016-06-11 08:56 | CP.PCM.PN ---
<Leobardo Meneses - Last Filed: 06/12/16 11:59> Subjective - Date & Time of Evaluation Date of Evaluation: 06/11/16 Time of Evaluation: 08:47 - Subjective Subjective: PGY-1 note for General Surgery, Dr. Crane Pt S&E. Nursing reports two tarry stools overnight. Pt denies abdominal pain, nausea, or vomiting. Pt reports tolerating liquid diet without discomfort. Hgb down-trending from 8.3 to 7.8 today. Objective - Vital Signs/Intake and Output Vital Signs (last 24 hours): Temp Pulse Resp BP Pulse Ox 98.5 F 69 11 L 111/64 100 06/11/16 04:00 06/11/16 07:00 06/11/16 07:00 06/11/16 06:51 06/11/16 07:00 Intake and Output: 06/11/16 06/11/16 06:59 18:59 Intake Total 450 Output Total 540 45 Balance -90 -45 - Medications Medications: Current Medications Albumin Human (Albumin Human 25% (12.5 Gm/50 Ml)) 12.5 gm IV Q8 [facility] Last Admin: 06/11/16 05:01 Dose: 12.5 gm Ferric Sodium Gluconate Complex (Ferrlecit) 125 mg IVPB DAILY [facility] Stop: 06/17/16 10:31 Last Admin: 06/10/16 10:06 Dose: 125 mg Fluconazole (Diflucan Iv 100 Mg/50 Ml Ns) 50 mls @ 100 mls/hr IVPB DAILY [facility] Last Admin: 06/10/16 10:06 Dose: 100 mls/hr Sodium Phosphate 15 mmole/ (Sodium Chloride) 255 mls @ 50 mls/hr IVPB .Q5H6M ONE Stop: 06/11/16 12:31 Insulin Aspart (Novolog) 0 unit SC ACHS [facility] PRN Reason: Protocol Last Admin: 06/11/16 08:07 Dose: Not Given Latanoprost (Xalatan Opht) 0 ml OU HS [facility] Last Admin: 06/10/16 21:01 Dose: 2.5 ml Pantoprazole Sodium (Protonix Inj) 40 mg IVP DAILY [facility] Potassium Phos/Sodium Phos (Neutra-Phos) 1 pkt PO 0800,1200,1700,2200 [facility] Sodium Bicarbonate (Sodium Bicarbonate Tab) 650 mg PO Q6 [facility] Last Admin: 06/11/16 05:02 Dose: 650 mg Tamsulosin HCl (Flomax) 0.4 mg PO DAILY [facility] Last Admin: 06/10/16 10:07 Dose: 0.4 mg - Labs Labs: 06/11/16 06:21 06/11/16 06:17 PT 12.3 SECONDS (9.7-12.2) H 06/09/16 06:45 INR 1.1 06/09/16 06:45 APTT 31 SECONDS (21-34) 06/09/16 06:45 - Constitutional Appears: Chronically Ill - Head Exam Head Exam: ATRAUMATIC, NORMOCEPHALIC - Eye Exam Eye Exam: EOMI - ENT Exam ENT Exam: Mucous Membranes Moist - Respiratory Exam Respiratory Exam: NORMAL BREATHING PATTERN - GI/Abdominal Exam GI & Abdominal Exam: Tenderness (RLQ), Normal Bowel Sounds - Extremities Exam Extremities Exam: Normal Inspection - Neurological Exam Neurological Exam: Alert, Awake, Oriented x3 - Skin Skin Exam: Normal Color, Warm Assessment and Plan - Assessment and Plan (Free Text) Assessment: 85M w/ of lower GI bleed and multiple bouts of melenotic stools Plan: Hgb downtrending this AM Pt given one unit FFP and cryoprecipitate today No further planned GI intervention Attending had long discussion with son regarding plan of care moving forward - son wants to continue conservative mgmt at this point, but will consent to surgery if bleeding continues Surgical team d/w Dr. Rosa Maria Meneses, PGY-1 <Erasmo Crane - Last Filed: 06/14/16 15:48> Objective - Vital Signs/Intake and Output Vital Signs (last 24 hours): Temp Pulse Resp BP Pulse Ox 97.4 F L 71 12 118/73 100 06/14/16 12:00 06/14/16 12:09 06/14/16 12:09 06/14/16 12:09 06/14/16 12:00 Intake and Output: 06/14/16 06/14/16 06:59 18:59 Intake Total 355 650 Output Total 435 240 Balance -80 410 - Medications Medications: Current Medications Albumin Human (Albumin Human 25% (12.5 Gm/50 Ml)) 12.5 gm IV Q8 [facility] Last Admin: 06/14/16 06:00 Dose: 12.5 gm Ferric Sodium Gluconate Complex (Ferrlecit) 125 mg IVPB DAILY [facility] Stop: 06/17/16 10:31 Last Admin: 06/14/16 10:49 Dose: 125 mg Fluconazole (Diflucan Iv 100 Mg/50 Ml Ns) 50 mls @ 100 mls/hr IVPB DAILY [facility] Last Admin: 06/14/16 10:50 Dose: 100 mls/hr Latanoprost (Xalatan Opht) 0 ml OU HS [facility] Last Admin: 06/13/16 22:00 Dose: 2.5 ml Pantoprazole Sodium (Protonix Inj) 40 mg IVP DAILY [facility] Last Admin: 06/14/16 10:51 Dose: 40 mg Sodium Bicarbonate (Sodium Bicarbonate Tab) 650 mg PO Q6 [facility] Last Admin: 06/14/16 12:44 Dose: 650 mg Tamsulosin HCl (Flomax) 0.4 mg PO DAILY [facility] Last Admin: 06/14/16 10:52 Dose: 0.4 mg - Labs Labs: 06/14/16 06:34 06/14/16 04:00 PT 12.3 SECONDS (9.7-12.2) H 06/09/16 06:45 INR 1.1 06/09/16 06:45 APTT 28 SECONDS (21-34) 06/13/16 06:31 Attending/Attestation - Attestation I have personally seen and examined this patient.: Yes I have fully participated in the care of the patient.: Yes I have reviewed all pertinent clinical information, including history, physical exam and plan: Yes Notes (Text): 06/14/16 15:47 Pt was seen and examined at bedside on 06/11/16 Agree with above note and assessment Pt with Lower GI Bleed Pt will need operative intervention if bleeding does not stop Plan d/w Pt's son and ICU attending in detail
--- NOTE | 2016-06-11 09:13 | CP.PCM.PN ---
<Indra Hennessy - Last Filed: 06/11/16 09:14> Subjective - Date & Time of Evaluation Date of Evaluation: 06/11/16 Time of Evaluation: 06:30 - Subjective Subjective: PGY4 GI Fellow Progress Note Patient seen and examined bedside this morning. The patient admits to some mild SOB and dry mouth. NO other issues. Per nursing, two black tarry stool overnight. No nausea, vomiting, hematochezia noted. 12 system ROS performed and negative except where stated. Objective - Vital Signs/Intake and Output Vital Signs (last 24 hours): Temp Pulse Resp BP Pulse Ox 98.5 F 69 11 L 111/64 100 06/11/16 04:00 06/11/16 07:00 06/11/16 07:00 06/11/16 06:51 06/11/16 07:00 Intake and Output: 06/11/16 06/11/16 06:59 18:59 Intake Total 450 Output Total 540 45 Balance -90 -45 - Medications Medications: Current Medications Albumin Human (Albumin Human 25% (12.5 Gm/50 Ml)) 12.5 gm IV Q8 [facility] Last Admin: 06/11/16 05:01 Dose: 12.5 gm Ferric Sodium Gluconate Complex (Ferrlecit) 125 mg IVPB DAILY [facility] Stop: 06/17/16 10:31 Last Admin: 06/10/16 10:06 Dose: 125 mg Fluconazole (Diflucan Iv 100 Mg/50 Ml Ns) 50 mls @ 100 mls/hr IVPB DAILY [facility] Last Admin: 06/10/16 10:06 Dose: 100 mls/hr Sodium Phosphate 15 mmole/ (Sodium Chloride) 255 mls @ 50 mls/hr IVPB .Q5H6M ONE Stop: 06/11/16 12:31 Insulin Aspart (Novolog) 0 unit SC ACHS [facility] PRN Reason: Protocol Last Admin: 06/11/16 08:07 Dose: Not Given Latanoprost (Xalatan Opht) 0 ml OU HS [facility] Last Admin: 06/10/16 21:01 Dose: 2.5 ml Pantoprazole Sodium (Protonix Inj) 40 mg IVP DAILY [facility] Potassium Phos/Sodium Phos (Neutra-Phos) 1 pkt PO 0800,1200,1700,2200 [facility] Sodium Bicarbonate (Sodium Bicarbonate Tab) 650 mg PO Q6 [facility] Last Admin: 06/11/16 05:02 Dose: 650 mg Tamsulosin HCl (Flomax) 0.4 mg PO DAILY [facility] Last Admin: 06/10/16 10:07 Dose: 0.4 mg - Labs Labs: 06/11/16 06:21 06/11/16 06:17 PT 12.3 SECONDS (9.7-12.2) H 06/09/16 06:45 INR 1.1 06/09/16 06:45 APTT 31 SECONDS (21-34) 06/09/16 06:45 - Constitutional Appears: Non-toxic, No Acute Distress - Eye Exam Eye Exam: EOMI, PERRL - ENT Exam ENT Exam: Mucous Membranes Dry - Respiratory Exam Respiratory Exam: Clear to Ausculation Bilateral. absent: Rales, Rhonchi, Wheezes - Cardiovascular Exam Cardiovascular Exam: RRR, +S1, +S2 - GI/Abdominal Exam GI & Abdominal Exam: Soft, Normal Bowel Sounds. absent: Distended, Firm, Guarding, Rigid, Tenderness, Organomegaly - Extremities Exam Extremities Exam: Normal Inspection. absent: Pedal Edema - Neurological Exam Neurological Exam: Alert, Awake, Oriented x3 - Psychiatric Exam Psychiatric exam: Normal Affect, Normal Mood - Skin Skin Exam: Dry, Warm Assessment and Plan - Assessment and Plan (Free Text) Assessment: Patient is an 85yo male with PMHx significant for unknown prior colectomy with ileocolonic anastamosis, anemia, CAD s/p 3 vessel CABG, moderate aortic stenosis , ischemic cardiomyopathy (EF 35-40%), CKD Stage 3, Hypertension, Hyperlipidemia who presented from [place] with weakness and hematochezia. -Acute blood loss anemia -Ileocolonic anastamotic ulceration -PUD -CAD -Systolic CHF -CKD -HTN -HLD Plan: -Continues to have melanotic stool per nursing -HGB stable at present, monitor CBC -Surgical service opting for conservative management at present, no planned interventions -Tolerating liquid diet, advance if no interventions planned -IR consulted -Given multiple endoscopic procedures, no plan for repeat endoscopy at this juncture -With known anastomotic ulceration as suspected source of bleeding and continued melena/hematochezia, it seems that despite multiple transfusions and current stability of CBC, patient at risk for further bleeding - he is being monitored closely in ICU; would ultimately benefit from surgical resection if feasible however known comorbid conditions noted and we will defer to their service <Shantal Jones - Last Filed: 06/11/16 09:43> Objective - Vital Signs/Intake and Output Vital Signs (last 24 hours): Temp Pulse Resp BP Pulse Ox 98.5 F 69 11 L 111/64 100 06/11/16 04:00 06/11/16 07:00 06/11/16 07:00 06/11/16 06:51 06/11/16 07:00 Intake and Output: 06/11/16 06/11/16 06:59 18:59 Intake Total 450 Output Total 540 45 Balance -90 -45 - Medications Medications: Current Medications Albumin Human (Albumin Human 25% (12.5 Gm/50 Ml)) 12.5 gm IV Q8 [facility] Last Admin: 06/11/16 05:01 Dose: 12.5 gm Ferric Sodium Gluconate Complex (Ferrlecit) 125 mg IVPB DAILY [facility] Stop: 06/17/16 10:31 Last Admin: 06/10/16 10:06 Dose: 125 mg Fluconazole (Diflucan Iv 100 Mg/50 Ml Ns) 50 mls @ 100 mls/hr IVPB DAILY [facility] Last Admin: 06/11/16 09:24 Dose: 100 mls/hr Sodium Phosphate 15 mmole/ (Sodium Chloride) 255 mls @ 50 mls/hr IVPB .Q5H6M ONE Stop: 06/11/16 12:31 Insulin Aspart (Novolog) 0 unit SC ACHS [facility] PRN Reason: Protocol Last Admin: 06/11/16 08:07 Dose: Not Given Latanoprost (Xalatan Opht) 0 ml OU HS [facility] Last Admin: 06/10/16 21:01 Dose: 2.5 ml Pantoprazole Sodium (Protonix Inj) 40 mg IVP DAILY [facility] Potassium Phos/Sodium Phos (Neutra-Phos) 1 pkt PO 0800,1200,1700,2200 [facility] Sodium Bicarbonate (Sodium Bicarbonate Tab) 650 mg PO Q6 [facility] Last Admin: 06/11/16 05:02 Dose: 650 mg Tamsulosin HCl (Flomax) 0.4 mg PO DAILY [facility] Last Admin: 06/10/16 10:07 Dose: 0.4 mg - Labs Labs: 06/11/16 06:21 06/11/16 06:17 PT 12.3 SECONDS (9.7-12.2) H 06/09/16 06:45 INR 1.1 06/09/16 06:45 APTT 31 SECONDS (21-34) 06/09/16 06:45 Attending/Attestation - Attestation I have personally seen and examined this patient.: Yes I have fully participated in the care of the patient.: Yes I have reviewed all pertinent clinical information, including history, physical exam and plan: Yes Notes (Text): Patient seen and examined with GI fellow. Agree with his note as documented above with the following additions/exceptions. This is a 85 year old male with h/o aortic stenosis, ischemic cardiomyopathy, CAD s/p CABG, HTN, HL. He remains in ICU. He has chronic intermittent GI bleeding with known duodenal ulcer s/p epi/coag and ileocolonic anastomotic ulcer. He has esophageal candidiasis. He is currently hemodynamically stable, reportedly with melena overnight. No complaint of abdominal pain. Follow up surgery/IR recommendations. Monitor H/H, transfuse as needed. Monitor frequency of bleeding--no plan for endoscopic intervention at this time given multiple attempts and endoscopic treatment without adequate bleeding control. Continue PPI therapy. 06/11/16 09:38
[2016-06-11] MEDS: Fluconazole IV 100mg/50 ml NS 50 ML IVPB SCH (09:24)
[2016-06-11] MEDS: Ferric Sodium Gluconat Complex 62.5 mg/5 ml Vial IVPB SCH (10:17)
--- NOTE | 2016-06-11 11:51 | CP.PCM.PN ---
Subjective - Date & Time of Evaluation Date of Evaluation: 06/11/16 Time of Evaluation: 11:48 - Subjective Subjective: Patient comfortable and awake: No distress. Overall generalized weakness, but up in chair. Still with drop in H/H and recurrent GI bleed. Objective - Vital Signs/Intake and Output Vital Signs (last 24 hours): Temp Pulse Resp BP Pulse Ox 97.1 F L 80 12 117/52 L 98 06/11/16 08:00 06/11/16 10:51 06/11/16 10:51 06/11/16 10:51 06/11/16 10:51 Intake and Output: 06/11/16 06/11/16 06:59 18:59 Intake Total 450 Output Total 540 45 Balance -90 -45 - Medications Medications: Current Medications Albumin Human (Albumin Human 25% (12.5 Gm/50 Ml)) 12.5 gm IV Q8 [facility] Last Admin: 06/11/16 05:01 Dose: 12.5 gm Ferric Sodium Gluconate Complex (Ferrlecit) 125 mg IVPB DAILY [facility] Stop: 06/17/16 10:31 Last Admin: 06/11/16 10:17 Dose: 125 mg Fluconazole (Diflucan Iv 100 Mg/50 Ml Ns) 50 mls @ 100 mls/hr IVPB DAILY [facility] Last Admin: 06/11/16 09:24 Dose: 100 mls/hr Sodium Phosphate 15 mmole/ (Sodium Chloride) 255 mls @ 50 mls/hr IVPB .Q5H6M ONE Stop: 06/11/16 12:31 Last Admin: 06/11/16 10:17 Dose: 50 mls/hr Insulin Aspart (Novolog) 0 unit SC ACHS [facility] PRN Reason: Protocol Last Admin: 06/11/16 08:07 Dose: Not Given Latanoprost (Xalatan Opht) 0 ml OU HS [facility] Last Admin: 06/10/16 21:01 Dose: 2.5 ml Pantoprazole Sodium (Protonix Inj) 40 mg IVP DAILY [facility] Last Admin: 06/11/16 10:18 Dose: 40 mg Potassium Phos/Sodium Phos (Neutra-Phos) 1 pkt PO 0800,1200,1700,2200 [facility] Sodium Bicarbonate (Sodium Bicarbonate Tab) 650 mg PO Q6 [facility] Last Admin: 06/11/16 05:02 Dose: 650 mg Tamsulosin HCl (Flomax) 0.4 mg PO DAILY [facility] Last Admin: 06/11/16 10:18 Dose: 0.4 mg - Labs Labs: 06/11/16 06:21 06/11/16 06:17 PT 12.3 SECONDS (9.7-12.2) H 06/09/16 06:45 INR 1.1 06/09/16 06:45 APTT 31 SECONDS (21-34) 06/09/16 06:45 - Constitutional Appears: Chronically Ill - Head Exam Head Exam: ATRAUMATIC, NORMAL INSPECTION, NORMOCEPHALIC - Eye Exam Eye Exam: EOMI, Normal appearance - Neck Exam Neck Exam: Full ROM. absent: Tenderness, Thyromegaly - Respiratory Exam Respiratory Exam: Rhonchi (scattered ), NORMAL BREATHING PATTERN. absent: Wheezes - Cardiovascular Exam Cardiovascular Exam: REGULAR RHYTHM, +S1, +S2. absent: +S4, Murmur - GI/Abdominal Exam GI & Abdominal Exam: Soft. 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 s/p FFP and platelet transfusion for refractory anemia and recurrent GI bleed. Off antiplatelets for now. Risk assesment in progress for possible surgical GI intervention for GI bleed, there is no futher cardiac work up at this time. We will following along to assist in fluid management and hemodynamics for chronic systolic CHF and moderate . CADIAC: * Chronic compensated Mod LV systolic dysfunction, mild MR, Mod , distal septal and anterior akinesia due to chronic CAD s/p CABG in 2012. * Hx of known mild-mod LV dysfunction EF 35-40% due to ischemic cardiomyopathy * Euvolemic at present * BP and HE ar apporiate * Lower extrem edema is improved: * CKD stage 3A chronic * No AFIB seen on any EKG or documented strips Optimize medical therapy with BB, JERROD-I or ARB, Statin when tolerated and resume ASA or Plavix when safe from GI standpoint. Currently approately held for active GI bleed.
--- NOTE | 2016-06-11 15:58 | CP.PCM.PN ---
Subjective - Date & Time of Evaluation Date of Evaluation: 06/11/16 Time of Evaluation: 01:00 - Subjective Subjective: Patient denies acute symptoms Objective - Vital Signs/Intake and Output Vital Signs (last 24 hours): Temp Pulse Resp BP Pulse Ox 97.1 F L 80 12 117/52 L 98 06/11/16 08:00 06/11/16 10:51 06/11/16 10:51 06/11/16 10:51 06/11/16 10:51 Intake and Output: 06/11/16 06/11/16 06:59 18:59 Intake Total 450 Output Total 540 45 Balance -90 -45 - Medications Medications: Current Medications Albumin Human (Albumin Human 25% (12.5 Gm/50 Ml)) 12.5 gm IV Q8 [facility] Last Admin: 06/11/16 05:01 Dose: 12.5 gm Ferric Sodium Gluconate Complex (Ferrlecit) 125 mg IVPB DAILY [facility] Stop: 06/17/16 10:31 Last Admin: 06/11/16 10:17 Dose: 125 mg Fluconazole (Diflucan Iv 100 Mg/50 Ml Ns) 50 mls @ 100 mls/hr IVPB DAILY [facility] Last Admin: 06/11/16 09:24 Dose: 100 mls/hr Insulin Aspart (Novolog) 0 unit SC ACHS [facility] PRN Reason: Protocol Last Admin: 06/11/16 12:00 Dose: Not Given Latanoprost (Xalatan Opht) 0 ml OU HS [facility] Last Admin: 06/10/16 21:01 Dose: 2.5 ml Pantoprazole Sodium (Protonix Inj) 40 mg IVP DAILY [facility] Last Admin: 06/11/16 10:18 Dose: 40 mg Potassium Phos/Sodium Phos (Neutra-Phos) 1 pkt PO 0800,1200,1700,2200 [facility] Sodium Bicarbonate (Sodium Bicarbonate Tab) 650 mg PO Q6 [facility] Last Admin: 06/11/16 14:05 Dose: 650 mg Tamsulosin HCl (Flomax) 0.4 mg PO DAILY [facility] Last Admin: 06/11/16 10:18 Dose: 0.4 mg - Labs Labs: 06/11/16 06:21 06/11/16 06:17 PT 12.3 SECONDS (9.7-12.2) H 06/09/16 06:45 INR 1.1 06/09/16 06:45 APTT 31 SECONDS (21-34) 06/09/16 06:45 - Constitutional Appears: Chronically Ill - Head Exam Head Exam: ATRAUMATIC - Eye Exam Eye Exam: Normal appearance Pupil Exam: NORMAL ACCOMODATION - ENT Exam ENT Exam: Mucous Membranes Dry Additional comments: Hard of hearing - Neck Exam Neck Exam: Normal Inspection - Respiratory Exam Respiratory Exam: Decreased Breath Sounds - Cardiovascular Exam Cardiovascular Exam: Tachycardia - GI/Abdominal Exam GI & Abdominal Exam: Diminished Bowel Sounds - Rectal Exam Rectal Exam: Deferred - Exam External exam: NORMAL EXTERNAL EXAM - Extremities Exam Extremities Exam: Normal Inspection - Back Exam Back Exam: NORMAL INSPECTION - Neurological Exam Neurological Exam: Alert, Oriented x3 Neuro motor strength exam: Left Upper Extremity: 2/, Right Upper Extremity: 2/ , Left Lower Extremity: 2/, Right Lower Extremity: 2/ - Psychiatric Exam Psychiatric exam: Normal Affect, Normal Mood - Skin Skin Exam: Pallor Assessment and Plan - Assessment and Plan (Free Text) Assessment: Patient examined sitting up in chair. Patient looks very weak, skin is pale, Hb 7.8 this morning. Patient admits to one dark stool this morning. Goals of care discussed with patient's son Rodger ( [phone]). Rodger said the total colectomy was suggested for the patient and he is seeking 2nd opinion. Rodger understands the advanced age of his father and this chronic problem. he is debating between the surgery and its potential benefices and quality of life for his father. We discussed the Code status as well. Rodger said he would not want his father to be kept alive on life support if it becomes the case. Rodger also stated that this was not the time to talk to patient about it as they are focused on other decision to be made. Impression * Patient continues to loose blood trough GI bleed * Colectomy was suggested as an option and family is seeking 2 nd opinion * Code status discussed * Patient remains Full Code as family debiting the best option for him Suggestion * Apply all measures to support life
--- NOTE | 2016-06-11 18:09 | CP.PCM.PN ---
Subjective - Date & Time of Evaluation Date of Evaluation: 06/11/16 Time of Evaluation: 12:20 - Subjective Subjective: clinically same Objective - Vital Signs/Intake and Output Vital Signs (last 24 hours): Temp Pulse Resp BP Pulse Ox 97.1 F L 80 12 117/52 L 98 06/11/16 08:00 06/11/16 10:51 06/11/16 10:51 06/11/16 10:51 06/11/16 10:51 Intake and Output: 06/11/16 06/11/16 06:59 18:59 Intake Total 450 460 Output Total 540 335 Balance -90 125 - Medications Medications: Current Medications Albumin Human (Albumin Human 25% (12.5 Gm/50 Ml)) 12.5 gm IV Q8 [facility] Last Admin: 06/11/16 16:45 Dose: 12.5 gm Ferric Sodium Gluconate Complex (Ferrlecit) 125 mg IVPB DAILY [facility] Stop: 06/17/16 10:31 Last Admin: 06/11/16 10:17 Dose: 125 mg Fluconazole (Diflucan Iv 100 Mg/50 Ml Ns) 50 mls @ 100 mls/hr IVPB DAILY [facility] Last Admin: 06/11/16 09:24 Dose: 100 mls/hr Insulin Aspart (Novolog) 0 unit SC ACHS [facility] PRN Reason: Protocol Last Admin: 06/11/16 17:39 Dose: 2 unit Latanoprost (Xalatan Opht) 0 ml OU HS [facility] Last Admin: 06/10/16 21:01 Dose: 2.5 ml Pantoprazole Sodium (Protonix Inj) 40 mg IVP DAILY [facility] Last Admin: 06/11/16 10:18 Dose: 40 mg Potassium Phos/Sodium Phos (Neutra-Phos) 1 pkt PO 0800,1200,1700,2200 [facility] Sodium Bicarbonate (Sodium Bicarbonate Tab) 650 mg PO Q6 [facility] Last Admin: 06/11/16 14:05 Dose: 650 mg Tamsulosin HCl (Flomax) 0.4 mg PO DAILY [facility] Last Admin: 06/11/16 10:18 Dose: 0.4 mg - Labs Labs: 06/11/16 06:21 06/11/16 06:17 PT 12.3 SECONDS (9.7-12.2) H 06/09/16 06:45 INR 1.1 06/09/16 06:45 APTT 31 SECONDS (21-34) 06/09/16 06:45 - Constitutional Appears: Well - Head Exam Head Exam: ATRAUMATIC, NORMAL INSPECTION, NORMOCEPHALIC - Eye Exam Eye Exam: EOMI, Normal appearance, PERRL Pupil Exam: NORMAL ACCOMODATION, PERRL - ENT Exam ENT Exam: Mucous Membranes Moist, Normal Exam - Neck Exam Neck Exam: Full ROM, Normal Inspection. absent: Lymphadenopathy - Respiratory Exam Respiratory Exam: Decreased Breath Sounds - Cardiovascular Exam Cardiovascular Exam: REGULAR RHYTHM, +S1, +S2 - GI/Abdominal Exam GI & Abdominal Exam: Soft, Diminished Bowel Sounds - Rectal Exam Rectal Exam: Deferred Assessment and Plan (1) Acute renal failure Status: Acute (2) Anemia Status: Acute (3) BPH (benign prostatic hyperplasia) Status: Acute (4) Bilateral edema of lower extremity Status: Acute (5) DVT prophylaxis Status: Acute (6) Dry gangrene Status: Acute (7) Gastrointestinal hemorrhage Status: Acute (8) Hypochromic microcytic anemia Status: Acute (9) Hypovolemic shock Status: Acute (10) Memory difficulty Status: Acute (11) Paresthesia of both lower extremities Status: Acute (12) Pneumonia Status: Acute (13) CHF (congestive heart failure) Status: Chronic (14) Diabetes mellitus Status: Chronic - Assessment and Plan (Free Text) Plan: f/u with GI f/u with ID f/u with mill operator helper f/u with general surgen continue monitor H/H s/p FFP and Cryoprecipitate monitor BP protonix Novolog
[2016-06-11] MEDS: Latanoprost 2.5 ml Opht Soln OU SCH (21:25)
[2016-06-11] MEDS: Potassium & Sodium Phosphate PO SCH (21:26)
[2016-06-12] MEDS: Albumin Human 25% (12.5 gm/50 ml) IV SCH ×3 (05:05→22:29)
[2016-06-12 06:07] LABS: BASO % 0.3 % (0.0-2.0); EOS # 0.1 K/uL (0.0-0.7); EOS % 1.6 % (0.0-4.0); HEMATOCRIT 22.1 % (35.0-51.0); LYMPH # 1.8 K/uL (1.0-4.3); LYMPH % 40.5 % (20.0-40.0); MEAN CELL VOLUME 89.5 fL (80.0-94.0); MEAN CORPUSCULAR HEMOGLOBIN 29.2 pg (27.0-31.0); MEAN CORPUSCULAR HGB CONC 32.6 g/dL (33.0-37.0); MEAN PLATELET VOLUME 8.2 fL (7.2-11.7); MONO # 0.4 K/uL (0.0-0.8); MONO % 8.1 % (0.0-10.0); RED CELL DISTRIBUTION WIDTH 16.5 % (11.5-14.5); WHITE BLOOD COUNT 4.4 K/uL (4.8-10.8)
[2016-06-12 06:22] LABS: CHLORIDE 115 mmol/L (98-107); POTASSIUM 4.1 mmol/L (3.6-5.2); SODIUM 144 mmol/L (132-148)
[2016-06-12 06:24] LABS: BILIRUBIN,TOTAL 0.5 mg/dL (0.2-1.3); CARBON DIOXIDE 20 mmol/L (22-30); GFR AFRICAN-AMERICAN > 60
[2016-06-12 06:25] LABS: ALB/GLOB RATIO 1.1 (1.0-2.1); ALKALINE PHOSPHATASE 42 U/L (38-126); ALT/SGPT 17 U/L (21-72); AST/SGOT 12 U/L (17-59); BLOOD UREA NITROGEN 6 mg/dL (9-20); CALCIUM 7.4 mg/dl (8.6-10.4); GLUCOSE,RANDOM 85 mg/dL (75-110); PHOSPHOROUS 2.2 mg/dL (2.5-4.5); TOTAL PROTEIN 5.1 g/dL (6.3-8.3)
[2016-06-12 06:26] LABS: MAGNESIUM 1.6 mg/dL (1.6-2.3)
--- NOTE | 2016-06-12 06:47 | CP.PCM.PN ---
<Indra Hennessy - Last Filed: 06/12/16 07:54> Subjective - Date & Time of Evaluation Date of Evaluation: 06/12/16 Time of Evaluation: 06:30 - Subjective Subjective: PGY4 GI Fellow Progress Note Patient seen and examined bedside this morning. The patient denies any complaints at this time. Discussed case with nursing who states patient had one episode of melena overnight. Received cryoprecipitate and FFP yesterday. 12 system ROS performed and negative except where stated. Objective - Vital Signs/Intake and Output Vital Signs (last 24 hours): Temp Pulse Resp BP Pulse Ox 98.5 F 71 14 111/59 L 100 06/12/16 04:00 06/12/16 06:00 06/12/16 06:00 06/12/16 05:50 06/12/16 06:00 Intake and Output: 06/11/16 06/12/16 18:59 06:59 Intake Total 693 250 Output Total 435 475 Balance 258 -225 - Medications Medications: Current Medications Albumin Human (Albumin Human 25% (12.5 Gm/50 Ml)) 12.5 gm IV Q8 [facility] Last Admin: 06/12/16 05:05 Dose: 12.5 gm Ferric Sodium Gluconate Complex (Ferrlecit) 125 mg IVPB DAILY [facility] Stop: 06/17/16 10:31 Last Admin: 06/11/16 10:17 Dose: 125 mg Fluconazole (Diflucan Iv 100 Mg/50 Ml Ns) 50 mls @ 100 mls/hr IVPB DAILY [facility] Last Admin: 06/11/16 09:24 Dose: 100 mls/hr Insulin Aspart (Novolog) 0 unit SC ACHS [facility] PRN Reason: Protocol Last Admin: 06/11/16 21:25 Dose: Not Given Latanoprost (Xalatan Opht) 0 ml OU HS [facility] Last Admin: 06/11/16 21:25 Dose: 2.5 ml Pantoprazole Sodium (Protonix Inj) 40 mg IVP DAILY [facility] Last Admin: 06/11/16 10:18 Dose: 40 mg Potassium Phos/Sodium Phos (Neutra-Phos) 1 pkt PO 0800,1200,1700,2200 [facility] Last Admin: 06/11/16 21:26 Dose: 1 pkt Sodium Bicarbonate (Sodium Bicarbonate Tab) 650 mg PO Q6 [facility] Last Admin: 06/12/16 05:06 Dose: 650 mg Tamsulosin HCl (Flomax) 0.4 mg PO DAILY [facility] Last Admin: 06/11/16 10:18 Dose: 0.4 mg - Labs Labs: 06/11/16 06:21 06/12/16 05:54 PT 12.3 SECONDS (9.7-12.2) H 06/09/16 06:45 INR 1.1 06/09/16 06:45 APTT 31 SECONDS (21-34) 06/09/16 06:45 - Constitutional Appears: Non-toxic, No Acute Distress - Eye Exam Eye Exam: EOMI, PERRL - Respiratory Exam Respiratory Exam: Rales (L>R), Rhonchi (L>R). absent: Clear to Ausculation Bilateral, Wheezes - Cardiovascular Exam Cardiovascular Exam: RRR, +S1, +S2 - GI/Abdominal Exam GI & Abdominal Exam: Soft, Normal Bowel Sounds. absent: Distended, Firm, Guarding, Rigid, Tenderness, Organomegaly - Extremities Exam Extremities Exam: Normal Inspection. absent: Pedal Edema - Neurological Exam Neurological Exam: Alert, Awake, Oriented x3 - Psychiatric Exam Psychiatric exam: Normal Affect, Normal Mood - Skin Skin Exam: Dry, Warm Assessment and Plan - Assessment and Plan (Free Text) Assessment: Patient is an 85yo male with PMHx significant for unknown prior colectomy with ileocolonic anastamosis, anemia, CAD s/p 3 vessel CABG, moderate aortic stenosis , ischemic cardiomyopathy (EF 35-40%), CKD Stage 3, Hypertension, Hyperlipidemia who presented from [place] with weakness and hematochezia. -Acute blood loss anemia -Ileocolonic anastamotic ulceration -PUD -CAD -Systolic CHF -CKD -HTN -HLD Plan: -Recurrent melena overnight, this morning despite continued transfusions of FFP/ Cryo -Awaiting AM lab work -Surgical service discussed surgical intervention with family who refused procedure; per EMR seeking 2nd opinion -Will call patient's son to discuss case, plans moving forward -No planned endoscopic interventions <Jesse Davenport - Last Filed: 06/12/16 09:03> Objective - Vital Signs/Intake and Output Vital Signs (last 24 hours): Temp Pulse Resp BP Pulse Ox 98.3 F 84 14 120/59 L 100 06/12/16 08:00 06/12/16 08:00 06/12/16 08:00 06/12/16 08:00 06/12/16 08:00 Intake and Output: 06/12/16 06/12/16 06:59 18:59 Intake Total 250 Output Total 475 110 Balance -225 -110 - Medications Medications: Current Medications Albumin Human (Albumin Human 25% (12.5 Gm/50 Ml)) 12.5 gm IV Q8 [facility] Last Admin: 06/12/16 05:05 Dose: 12.5 gm Ferric Sodium Gluconate Complex (Ferrlecit) 125 mg IVPB DAILY [facility] Stop: 06/17/16 10:31 Last Admin: 06/11/16 10:17 Dose: 125 mg Fluconazole (Diflucan Iv 100 Mg/50 Ml Ns) 50 mls @ 100 mls/hr IVPB DAILY [facility] Last Admin: 06/11/16 09:24 Dose: 100 mls/hr Insulin Aspart (Novolog) 0 unit SC ACHS [facility] PRN Reason: Protocol Last Admin: 06/12/16 08:34 Dose: Not Given Latanoprost (Xalatan Opht) 0 ml OU HS [facility] Last Admin: 06/11/16 21:25 Dose: 2.5 ml Pantoprazole Sodium (Protonix Inj) 40 mg IVP DAILY [facility] Last Admin: 06/11/16 10:18 Dose: 40 mg Potassium Phos/Sodium Phos (Neutra-Phos) 1 pkt PO 0800,1200,1700,2200 [facility] Last Admin: 06/11/16 21:26 Dose: 1 pkt Sodium Bicarbonate (Sodium Bicarbonate Tab) 650 mg PO Q6 [facility] Last Admin: 06/12/16 05:06 Dose: 650 mg Tamsulosin HCl (Flomax) 0.4 mg PO DAILY [facility] Last Admin: 06/11/16 10:18 Dose: 0.4 mg - Labs Labs: 06/12/16 05:54 06/12/16 05:54 PT 12.3 SECONDS (9.7-12.2) H 06/09/16 06:45 INR 1.1 06/09/16 06:45 APTT 31 SECONDS (21-34) 06/09/16 06:45 Attending/Attestation - Attestation I have personally seen and examined this patient.: Yes I have fully participated in the care of the patient.: Yes I have reviewed all pertinent clinical information, including history, physical exam and plan: Yes Notes (Text): 06/12/16 08:59 Patient seen and examined with GI fellow. He remains chronically ill, in critical care unit. He had one large episode of melena during my examination. He denies abdominal pain, nausea, vomiting, fever/chills. Tolerating PO liquid diet. Review of vitals from today are normal. CAD/CABG CKD HTN / hyperlipidemia Anemia, GI bleeding, duodenal ulcer, oozing ulcerated mucosa at anastomosis site - Patient with recurrent bleeding despite conservative management with transfusion of FFP, cryoprecipitate, etc - No role for repeat endoscopy at this point given multiple unsuccessful attempts at bleeding control. Therefore, again highly recommended to proceed forward with surgical intervention if patient and family agreeable. - Continue to monitor H/H, transfuse as necessary - Continue with PPI therapy - Liquid diet as tolerated - Further plan as per surgical team
[2016-06-12] MEDS: Potassium & Sodium Phosphate PO SCH ×4 (08:00→22:07)
[2016-06-12] MEDS: (Novolog) Insulin Aspart, Recombinant 100 u/ml 10 ml vial SC SCH ×4 (08:34→22:08)
[2016-06-12] MEDS: Ferric Sodium Gluconat Complex 62.5 mg/5 ml Vial IVPB SCH (09:23)
[2016-06-12] MEDS: Fluconazole IV 100mg/50 ml NS 50 ML IVPB SCH (09:24)
--- NOTE | 2016-06-12 11:22 | CP.CCUPN ---
<Supa Mclean - Last Filed: 06/12/16 16:12> CCU Subjective - Physician Review Subjective (Free Text): 05/23/16 18:00 Patient seen at [facility] with no acute issues. Patient had upper GI endoscopy today. Patient a bit lethargic afterwards with recommendations made.for diet advancement to clears once with improved mental status. ROS could not be obtained at the time due to somnolence. 05/26/16 14:47 Pt seen and examined in no acute distress. No significant events overnight per nursing. Patient somnolent at time of initial evaluation. Family present later on bedside. A ROS could not be obtained at this time due to somnolence. 05/27/16 07:32 Pt seen and examined in no acute distress. Patient more alert today and vocally responsive. Patient had an episode of melena this morning per nursing . Patient tolerating clears. Patient medically stable for transfer to telemetry floor. 06/03/16 15:32 Pt seen and examined with no acute events overnight per nursing. Patient had push enteroscopy today. He had large BM with melena afterwards. No complaints of headaches, subjective fevers or chills, nausea, vomiting, constipation, chest pain or palpitations at this time. 06/04/16 13:04 Pt seen and examined in no acute distress. Patient to have colonoscopy today. Pt resting comfortably in bed with no complaints at this time. He specifically denies weakness, headaches, subjective fevers or chills, nausea, vomiting, constipation, chest pain or palpitations at this time. 06/06/16 20:58 Patient seen at [facility] in no acute distress. Patient was readmitted to the ICU for subsequent hematochezia. Patient had urgent colonoscopy by GI due to findings on the bleeding scan. Patient is s/p colonoscopy with epinephrine and cautery to ulcerated sites at ileocolonic anastamosis. Pt tolerated procedure well. 06/09/16 15:05 Pt seen and examined in no acute distress. Pt states that he feels chilly and is thus bundled up. Patient had thee episodes of hematochezia (melena) during the overnight shift and then into morning rounds. Patient not aware that the stools are melena. Patient denies headaches, lightheadedness, light sensitivity , chest pain, palpitations, dyspnea, paresthesias, nausea or vomiting at this time. 06/10/16 12:34 Pt seen and examined in no acute distress. Pt had one scant maroon colored stool and then admitted to another stool ( melena) afterwards during the morning shift. Pt hard of hearing but able to deny a review of systems: denies palpitations, subjective fevers or chills, chest pain, palpitations at this time. 06/11/16 15:45 Pt seen and examined. Patient had two scant dark tarry stool episodes. Patient out of bed to chair. Patient denies weakness, subjective fevers or chills, nausea, vomiting, diarrhea, constipation, chest pain or palpitations at this time. 06/12/16 16:12 Pt seen and examined in no acute distress. Patient had one tarry stool. Patient' s son was informed about plans for possible colectomy tomorrow; but son still wants to assess risks vs benefits. Patient's son wants to speak with family and then follow up with Dr. Crane for final considerations. Pt denies headaches, subjective fevers or chills, nausea, vomiting, constipation, chest pain or palpitations at this time. CCU Objective - Vital Signs / Intake & Output Vital Signs (Last 4 hours): Vital Signs Temp Pulse Resp BP Pulse Ox 06/12/16 09:00 72 13 100 06/12/16 08:51 79 12 111/60 97 06/12/16 08:11 74 15 100 06/12/16 08:00 98.3 F 84 14 120/59 L 100 06/12/16 07:50 79 12 120/59 L 100 Intake and Output (Last 8hrs): Intake & Output 06/11/16 06/12/16 06/12/16 22:59 06:59 14:59 Intake Total 100 200 250 Output Total 265 340 142 Balance -165 -140 108 Weight 157 lb Intake: Intake, IV Amount 100 Right Medial Port PICC 100 Oral 50 100 250 Blood Product 50 Output: Urine 265 340 142 Urethral (Cardenas) 265 340 142 Other: # Bowel Movements 1 1 - Physical Exam Head: Positive for: Atraumatic, Normocephalic Pupils: Positive for: PERRL Extroacular Muscles: Positive for: EOMI Conjunctiva: Positive for: Normal Mouth: Positive for: Moist Mucous Membranes Neck: Positive for: Normal Range of Motion Respiratory/Chest: Positive for: Clear to Auscultation, Good Air Exchange. Negative for: Wheezes Cardiovascular: Positive for: Normal S1, S2 Abdomen: Positive for: Tenderness, Normal Bowel Sounds. Negative for: Peritoneal Signs Back: Positive for: Normal Inspection Upper Extremity: Positive for: Normal Inspection Lower Extremity: Positive for: Normal Inspection Neurological: Positive for: CN II-XII Intact Skin: Positive for: Warm, Dry Psychiatric: Positive for: Lethargic - Medications Active Medications: Active Medications Generic Name Dose Route Start Last Admin Trade Name Freq PRN Reason Stop Dose Admin Albumin Human 12.5 gm 06/09/16 23:45 06/12/16 05:05 Albumin Human 25% (12.5 Gm/50 Ml) IV 12.5 gm Q8 LASHA Administration Ferric Sodium Gluconate Complex 125 mg 06/09/16 10:30 06/12/16 09:23 Ferrlecit IVPB 06/17/16 10:31 125 mg DAILY LASHA Administration Fluconazole 50 mls @ 100 mls/hr 06/04/16 10:00 06/12/16 09:24 Diflucan Iv 100 Mg/50 Ml Ns IVPB 100 mls/hr DAILY LASHA Administration Insulin Aspart 0 unit 06/08/16 07:30 06/12/16 08:34 Novolog SC Not Given ACHS LASHA Protocol Latanoprost 0 ml 05/22/16 22:00 06/11/16 21:25 Xalatan Opht OU 2.5 ml HS LASHA Administration Pantoprazole Sodium 40 mg 06/11/16 10:00 06/12/16 09:22 Protonix Inj IVP 40 mg DAILY LASHA Administration Potassium Phos/Sodium Phos 1 pkt 06/11/16 22:00 06/11/16 21:26 Neutra-Phos PO 1 pkt 0800,1200,1700,2200 LASHA Administration Sodium Bicarbonate 650 mg 06/10/16 00:00 06/12/16 05:06 Sodium Bicarbonate Tab PO 650 mg Q6 LASHA Administration Tamsulosin HCl 0.4 mg 05/22/16 10:00 06/12/16 09:27 Flomax PO 0.4 mg DAILY LASHA Administration - Patient Studies Lab Studies: Lab Studies 06/12/16 06/12/16 06/11/16 Range/Units 07:55 05:54 21:05 WBC 4.4 L (4.8-10.8) K/uL RBC 2.47 L (4.40-5.90) Mil/uL Hgb 7.2 L (12.0-18.0) g/dL Hct 22.1 L (35.0-51.0) % MCV 89.5 (80.0-94.0) fL MCH 29.2 (27.0-31.0) pg MCHC 32.6 L (33.0-37.0) g/dL RDW 16.5 H (11.5-14.5) % Plt Count 132 (130-400) K/uL MPV 8.2 (7.2-11.7) fL Neut % (Auto) 49.5 L (50.0-75.0) % Lymph % (Auto) 40.5 H (20.0-40.0) % [place] % (Auto) 8.1 (0.0-10.0) % Eos % (Auto) 1.6 (0.0-4.0) % Baso % (Auto) 0.3 (0.0-2.0) % Neut # 2.2 (1.8-7.0) K/uL Lymph # 1.8 (1.0-4.3) K/uL [place] # 0.4 (0.0-0.8) K/uL Eos # 0.1 (0.0-0.7) K/uL Baso # 0.0 (0.0-0.2) K/uL Sodium 144 (132-148) mmol/L Potassium 4.1 (3.6-5.2) mmol/L Chloride 115 H (98-107) mmol/L Carbon Dioxide 20 L (22-30) mmol/L Anion Gap 13 (10-20) BUN 6 L (9-20) mg/dL Creatinine 1.1 (0.8-1.5) MG/DL Est GFR ( Amer) > 60 Est GFR (Non-Af Amer) > 60 POC Glucose (mg/dL) 88 141 H (65-110) mg/dL Random Glucose 85 (75-110) mg/dL Calcium 7.4 L (8.6-10.4) mg/dl Phosphorus 2.2 L (2.5-4.5) mg/dL Magnesium 1.6 (1.6-2.3) mg/dL Total Bilirubin 0.5 (0.2-1.3) mg/dL AST 12 L (17-59) U/L ALT 17 L (21-72) U/L Alkaline Phosphatase 42 (38-126) U/L Total Protein 5.1 L (6.3-8.3) g/dL Albumin 2.7 L (3.5-5.0) g/dL Globulin 2.5 (2.2-3.9) gm/dL Albumin/Globulin Ratio 1.1 (1.0-2.1) 06/11/16 06/11/16 Range/Units 16:09 11:39 WBC (4.8-10.8) K/uL RBC (4.40-5.90) Mil/uL Hgb (12.0-18.0) g/dL Hct (35.0-51.0) % MCV (80.0-94.0) fL MCH (27.0-31.0) pg MCHC (33.0-37.0) g/dL RDW (11.5-14.5) % Plt Count (130-400) K/uL MPV (7.2-11.7) fL Neut % (Auto) (50.0-75.0) % Lymph % (Auto) (20.0-40.0) % [place] % (Auto) (0.0-10.0) % Eos % (Auto) (0.0-4.0) % Baso % (Auto) (0.0-2.0) % Neut # (1.8-7.0) K/uL Lymph # (1.0-4.3) K/uL [place] # (0.0-0.8) K/uL Eos # (0.0-0.7) K/uL Baso # (0.0-0.2) K/uL Sodium (132-148) mmol/L Potassium (3.6-5.2) mmol/L Chloride (98-107) mmol/L Carbon Dioxide (22-30) mmol/L Anion Gap (10-20) BUN (9-20) mg/dL Creatinine (0.8-1.5) MG/DL Est GFR ( Amer) Est GFR (Non-Af Amer) POC Glucose (mg/dL) 176 H 136 H (65-110) mg/dL Random Glucose (75-110) mg/dL Calcium (8.6-10.4) mg/dl Phosphorus (2.5-4.5) mg/dL Magnesium (1.6-2.3) mg/dL Total Bilirubin (0.2-1.3) mg/dL AST (17-59) U/L ALT (21-72) U/L Alkaline Phosphatase (38-126) U/L Total Protein (6.3-8.3) g/dL Albumin (3.5-5.0) g/dL Globulin (2.2-3.9) gm/dL Albumin/Globulin Ratio (1.0-2.1) Laboratory Results - last 24 hr 06/11/16 06/11/16 06/11/16 11:39 16:09 21:05 WBC RBC Hgb Hct MCV MCH MCHC RDW Plt Count MPV Neut % (Auto) Lymph % (Auto) [place] % (Auto) Eos % (Auto) Baso % (Auto) Neut # Lymph # [place] # Eos # Baso # Sodium Potassium Chloride Carbon Dioxide Anion Gap BUN Creatinine Est GFR ( Amer) Est GFR (Non-Af Amer) POC Glucose (mg/dL) 136 H 176 H 141 H Random Glucose Calcium Phosphorus Magnesium Total Bilirubin AST ALT Alkaline Phosphatase Total Protein Albumin Globulin Albumin/Globulin Ratio 06/12/16 06/12/16 05:54 07:55 WBC 4.4 L RBC 2.47 L Hgb 7.2 L Hct 22.1 L MCV 89.5 MCH 29.2 MCHC 32.6 L RDW 16.5 H Plt Count 132 MPV 8.2 Neut % (Auto) 49.5 L Lymph % (Auto) 40.5 H [place] % (Auto) 8.1 Eos % (Auto) 1.6 Baso % (Auto) 0.3 Neut # 2.2 Lymph # 1.8 [place] # 0.4 Eos # 0.1 Baso # 0.0 Sodium 144 Potassium 4.1 Chloride 115 H Carbon Dioxide 20 L Anion Gap 13 BUN 6 L Creatinine 1.1 Est GFR ( Amer) > 60 Est GFR (Non-Af Amer) > 60 POC Glucose (mg/dL) 88 Random Glucose 85 Calcium 7.4 L Phosphorus 2.2 L Magnesium 1.6 Total Bilirubin 0.5 AST 12 L ALT 17 L Alkaline Phosphatase 42 Total Protein 5.1 L Albumin 2.7 L Globulin 2.5 Albumin/Globulin Ratio 1.1 Fingerstick Blood Sugar Results: 115 Review of Systems - Review of Systems Review of Systems: see subjective Critical Care Progress Note - Nutrition Nutrition: Nutrition Category Date Time Status Liquid Diet [DIET] Diets 06/10/16 Breakfast Active Assessment/Plan - Assessment and Plan (Free Text) Assessment: 85 M with a past medical history of anemia, 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 Pt readmitted to ICU for episodes of significant hematochezia overnight. Patient has had extensive GI workup to date. Patient still has hematochezia though scant in nature. Plan: Neuro: Neurochecks q 6 aaox3; hard of hearing Optho: Latanoprost OU HS LASHA Dorzolamide OU TID LASHA Brimonidine OU TID LASHA Cardio: Maintain SBP >110 Maintain HR 60-100 bpm Optimize therapy as needed when patient can tolerate per Cardio Pulm: Maintain O2 saturation >92% 06/06 CXR biapical pleural thickening with upper lobe granulomatous changes. chronic interstitial lung markings. bilateral hilar prominence. patchy left basilar airspace opacity with questionable small left pleural effusion Tamsulosin 0.4 mg PO daily Endo: Diabetes Sliding scale - Novolog Accucheck q6 Maintain Euglycemia GI: Liquid diet; No further GI intervention or surgical intervention as patient may not be able to undergo procedure from a hemodynamic standpoint. Family still to consider risks vs benefits regarding need for surgical intervention. 06/03 EGD: 2 cm hiatal hernia present. one large non-bleeding ulcer with clean ulcer base Class III found at duodenal bulb spanning duodenal sweep. improved compared to prior examination without any stigmata of recent bleeding. 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 Post-op diagnosis: marah esophagitis, duodenal ulcer, gastritis, hiatal hernia. Daily CMP 06/04 Colonoscopy: no active bleed, hemorrhoids, ulcerated mucosa at anastomosis site f/u EGD biopsy 06/05 GI Bleeding scan: findings suggestive of active GI bleeding likely at large bowel splenic flexure that extends to the descending colon. 06/06 Colonoscopy - per GI - 15 cc of epinephrine 0.1 mg/ml injections at ulcerated ileocolonic anastomotic site along with electro cautery for hemostasis. Pt s/p transfusions yesterday with appropriate response. Surgery on board to decide necc interventions. First off- angiography studies. F /U No further endoscopic interventions per GI as patient's recurrent bleeding has been successfully controlled each time. : Monitor I/Os Renal: BUN/Cr: WNL Monitor I/Os Daily CMP Heme: Hgb 7.2. Will transfuse 2 units PRBC Monitor 06/02 INR 1.2 06/02 PT 12.8 Daily CBC Ferrlecit on board MSK: PT/OT eval ID: sacral wound WBC decreased today MRSA positive nares Daily CBC Nystatin TOP TID LASHA fluconazole 100mg/50 ml NS 50 cc @ 100 cc/hr for esophageal candiasis Palliative: Discussions regarding second opinion for surgical intervention. When patient is discharged, family would rather patient goes to LTACH instead of a [facility] F/U Prophylaxis: DVT: SCDs. VTE contraindicated bc of GI bleed GI: PPI IV daily <Osvaldo Silva - Last Filed: 06/12/16 16:58> CCU Objective - Vital Signs / Intake & Output Vital Signs (Last 4 hours): Vital Signs Temp Pulse Resp BP Pulse Ox 06/12/16 16:41 79 11 L 110/56 L 100 06/12/16 16:26 98 F 73 12 117/59 L 100 06/12/16 16:11 80 18 119/60 100 06/12/16 16:00 97.8 F 72 12 110/56 L 98 06/12/16 15:56 97.8 F 75 13 116/61 100 06/12/16 15:41 97.6 F 75 13 114/57 L 100 06/12/16 15:37 76 13 100 06/12/16 15:28 74 15 104/62 06/12/16 15:26 97.3 F L 85 13 109/58 L 06/12/16 15:00 72 12 06/12/16 14:50 72 12 110/59 L 06/12/16 14:00 74 12 100 06/12/16 13:50 79 13 104/65 97 06/12/16 13:00 79 15 100 Intake and Output (Last 8hrs): Intake & Output 06/12/16 06/12/16 06/12/16 06:59 14:59 22:59 Intake Total 200 600 0 Output Total 340 242 85 Balance -140 358 -85 Weight 157 lb Intake: Intake, IV Amount 100 300 Right Medial Port PICC 100 300 Oral 100 300 0 Blood Product 0 Red Blood Cells Cpd As1 0 Lr Unit [id number] Output: Urine 340 242 85 Urethral (Cardenas) 340 242 85 Other: # Bowel Movements 1 - Medications Active Medications: Active Medications Generic Name Dose Route Start Last Admin Trade Name Freq PRN Reason Stop Dose Admin Albumin Human 12.5 gm 06/09/16 23:45 06/12/16 15:57 Albumin Human 25% (12.5 Gm/50 Ml) IV 12.5 gm Q8 LASHA Administration Dextrose 25 ml 06/12/16 15:08 Dextrose 50% Inj IV STAT PRN Hypoglycemia Ferric Sodium Gluconate Complex 125 mg 06/09/16 10:30 06/12/16 09:23 Ferrlecit IVPB 06/17/16 10:31 125 mg DAILY LASHA Administration Fluconazole 50 mls @ 100 mls/hr 06/04/16 10:00 06/12/16 09:24 Diflucan Iv 100 Mg/50 Ml Ns IVPB 100 mls/hr DAILY LASHA Administration Insulin Aspart 0 unit 06/08/16 07:30 06/12/16 16:20 Novolog SC Not Given ACHS LASHA Protocol Latanoprost 0 ml 05/22/16 22:00 06/11/16 21:25 Xalatan Opht OU 2.5 ml HS LASHA Administration Pantoprazole Sodium 40 mg 06/11/16 10:00 06/12/16 09:22 Protonix Inj IVP 40 mg DAILY LASHA Administration Potassium Phos/Sodium Phos 1 pkt 06/11/16 22:00 06/12/16 16:52 Neutra-Phos PO Not Given 0800,1200,1700,2200 LASHA Sodium Bicarbonate 650 mg 06/10/16 00:00 06/12/16 12:42 Sodium Bicarbonate Tab PO Not Given Q6 LASHA Tamsulosin HCl 0.4 mg 05/22/16 10:00 06/12/16 09:27 Flomax PO 0.4 mg DAILY LASHA Administration - Patient Studies Lab Studies: Lab Studies 06/12/16 06/12/16 06/12/16 Range/Units 16:11 12:19 11:49 WBC (4.8-10.8) K/uL RBC (4.40-5.90) Mil/uL Hgb (12.0-18.0) g/dL Hct (35.0-51.0) % MCV (80.0-94.0) fL MCH (27.0-31.0) pg MCHC (33.0-37.0) g/dL RDW (11.5-14.5) % Plt Count (130-400) K/uL MPV (7.2-11.7) fL Neut % (Auto) (50.0-75.0) % Lymph % (Auto) (20.0-40.0) % [place] % (Auto) (0.0-10.0) % Eos % (Auto) (0.0-4.0) % Baso % (Auto) (0.0-2.0) % Neut # (1.8-7.0) K/uL Lymph # (1.0-4.3) K/uL [place] # (0.0-0.8) K/uL Eos # (0.0-0.7) K/uL Baso # (0.0-0.2) K/uL Sodium (132-148) mmol/L Potassium (3.6-5.2) mmol/L Chloride (98-107) mmol/L Carbon Dioxide (22-30) mmol/L Anion Gap (10-20) BUN (9-20) mg/dL Creatinine (0.8-1.5) MG/DL Est GFR ( Amer) Est GFR (Non-Af Amer) POC Glucose (mg/dL) 105 157 H (65-110) mg/dL Random Glucose (75-110) mg/dL Calcium (8.6-10.4) mg/dl Phosphorus (2.5-4.5) mg/dL Magnesium (1.6-2.3) mg/dL Total Bilirubin (0.2-1.3) mg/dL AST (17-59) U/L ALT (21-72) U/L Alkaline Phosphatase (38-126) U/L Total Protein (6.3-8.3) g/dL Albumin (3.5-5.0) g/dL Globulin (2.2-3.9) gm/dL Albumin/Globulin Ratio (1.0-2.1) Blood Type O POSITIVE Antibody Screen Negative 06/12/16 06/12/16 06/11/16 Range/Units 07:55 05:54 21:05 WBC 4.4 L (4.8-10.8) K/uL RBC 2.47 L (4.40-5.90) Mil/uL Hgb 7.2 L (12.0-18.0) g/dL Hct 22.1 L (35.0-51.0) % MCV 89.5 (80.0-94.0) fL MCH 29.2 (27.0-31.0) pg MCHC 32.6 L (33.0-37.0) g/dL RDW 16.5 H (11.5-14.5) % Plt Count 132 (130-400) K/uL MPV 8.2 (7.2-11.7) fL Neut % (Auto) 49.5 L (50.0-75.0) % Lymph % (Auto) 40.5 H (20.0-40.0) % [place] % (Auto) 8.1 (0.0-10.0) % Eos % (Auto) 1.6 (0.0-4.0) % Baso % (Auto) 0.3 (0.0-2.0) % Neut # 2.2 (1.8-7.0) K/uL Lymph # 1.8 (1.0-4.3) K/uL [place] # 0.4 (0.0-0.8) K/uL Eos # 0.1 (0.0-0.7) K/uL Baso # 0.0 (0.0-0.2) K/uL Sodium 144 (132-148) mmol/L Potassium 4.1 (3.6-5.2) mmol/L Chloride 115 H (98-107) mmol/L Carbon Dioxide 20 L (22-30) mmol/L Anion Gap 13 (10-20) BUN 6 L (9-20) mg/dL Creatinine 1.1 (0.8-1.5) MG/DL Est GFR ( Amer) > 60 Est GFR (Non-Af Amer) > 60 POC Glucose (mg/dL) 88 141 H (65-110) mg/dL Random Glucose 85 (75-110) mg/dL Calcium 7.4 L (8.6-10.4) mg/dl Phosphorus 2.2 L (2.5-4.5) mg/dL Magnesium 1.6 (1.6-2.3) mg/dL Total Bilirubin 0.5 (0.2-1.3) mg/dL AST 12 L (17-59) U/L ALT 17 L (21-72) U/L Alkaline Phosphatase 42 (38-126) U/L Total Protein 5.1 L (6.3-8.3) g/dL Albumin 2.7 L (3.5-5.0) g/dL Globulin 2.5 (2.2-3.9) gm/dL Albumin/Globulin Ratio 1.1 (1.0-2.1) Blood Type Antibody Screen Laboratory Results - last 24 hr 06/11/16 06/12/16 06/12/16 21:05 05:54 07:55 WBC 4.4 L RBC 2.47 L Hgb 7.2 L Hct 22.1 L MCV 89.5 MCH 29.2 MCHC 32.6 L RDW 16.5 H Plt Count 132 MPV 8.2 Neut % (Auto) 49.5 L Lymph % (Auto) 40.5 H [place] % (Auto) 8.1 Eos % (Auto) 1.6 Baso % (Auto) 0.3 Neut # 2.2 Lymph # 1.8 [place] # 0.4 Eos # 0.1 Baso # 0.0 Sodium 144 Potassium 4.1 Chloride 115 H Carbon Dioxide 20 L Anion Gap 13 BUN 6 L Creatinine 1.1 Est GFR ( Amer) > 60 Est GFR (Non-Af Amer) > 60 POC Glucose (mg/dL) 141 H 88 Random Glucose 85 Calcium 7.4 L Phosphorus 2.2 L Magnesium 1.6 Total Bilirubin 0.5 AST 12 L ALT 17 L Alkaline Phosphatase 42 Total Protein 5.1 L Albumin 2.7 L Globulin 2.5 Albumin/Globulin Ratio 1.1 Blood Type Antibody Screen 06/12/16 06/12/16 06/12/16 11:49 12:19 16:11 WBC RBC Hgb Hct MCV MCH MCHC RDW Plt Count MPV Neut % (Auto) Lymph % (Auto) [place] % (Auto) Eos % (Auto) Baso % (Auto) Neut # Lymph # [place] # Eos # Baso # Sodium Potassium Chloride Carbon Dioxide Anion Gap BUN Creatinine Est GFR ( Amer) Est GFR (Non-Af Amer) POC Glucose (mg/dL) 157 H 105 Random Glucose Calcium Phosphorus Magnesium Total Bilirubin AST ALT Alkaline Phosphatase Total Protein Albumin Globulin Albumin/Globulin Ratio Blood Type O POSITIVE Antibody Screen Negative Critical Care Progress Note - Nutrition Nutrition: Nutrition Category Date Time Status NPO Diet [DIET] Diets 06/12/16 Lunch Active NPO Diet [DIET] Diets 06/13/16 Breakfast Active Assessment/Plan (1) Gastrointestinal hemorrhage Current Visit: Yes Status: Acute Comment: Transfuse packed RBCs as needed Transfuse 2 units of FFP Platelet count 107 with 94% platelets functional Possible surgery today or in the a.m. Continue Protonix Attending/Attestation - Attestation I have personally seen and examined this patient.: Yes I have fully participated in the care of the patient.: Yes I have reviewed all pertinent clinical information: Yes Notes (Text): 06/12/16 16:57 I have seen and examined the patient. Medical records, lab studies, and imaging were reviewed by me and a management plan was formulated on multidisciplinary rounds with resident Dr. Shepherd. I agree with their above documented assessment and plan. Patient to undergo total colectomy for ongoing GI bleed that has not been controlled despite multiple medical interventions. Morbidity is high for this procedure but outweighs the current risks of ongoing bleeding. Family son to make decision with surgical team. Critical Care Time 35 minutes. Multi-disciplinary rounds were performed with house staff, nursing, speech therapy, respiratory therapy, pharmacy and nutrition with integrated input from the primary team/attending and other consulting services. The documented time is cumulative and includes review of patient data/exams/labs/chart review and examination of the patient on rounds and throughout the day; time is exclusive of any procedures or teaching time.
[2016-06-12] MEDS ORDERED: Sodium Phosphate 15 MMOLE in Sodium Chloride 0.9% 250 ML IVPB ONE (11:33)
--- NOTE | 2016-06-12 11:58 | CP.PCM.PN ---
<Leobardo Meneses - Last Filed: 06/12/16 12:08> Subjective - Date & Time of Evaluation Date of Evaluation: 06/12/16 Time of Evaluation: 11:52 - Subjective Subjective: PGY-1 note for General Surgery, Dr. Crane Pt S&E. Nursing reports total of 2 black, tarry stools overnight, with additional melanotic still this AM. Hemoglobin has descended further from 7.8 yesterday to 7.2 this AM, despite transfusions of FFP/cryo. Pt denies abdominal pain, N/V, or other complaints at this time. Objective - Vital Signs/Intake and Output Vital Signs (last 24 hours): Temp Pulse Resp BP Pulse Ox 98.3 F 72 13 111/60 100 06/12/16 08:00 06/12/16 09:00 06/12/16 09:00 06/12/16 08:51 06/12/16 09:00 Intake and Output: 06/12/16 06/12/16 06:59 18:59 Intake Total 250 250 Output Total 475 142 Balance -225 108 - Medications Medications: Current Medications Albumin Human (Albumin Human 25% (12.5 Gm/50 Ml)) 12.5 gm IV Q8 [facility] Last Admin: 06/12/16 05:05 Dose: 12.5 gm Ferric Sodium Gluconate Complex (Ferrlecit) 125 mg IVPB DAILY [facility] Stop: 06/17/16 10:31 Last Admin: 06/12/16 09:23 Dose: 125 mg Fluconazole (Diflucan Iv 100 Mg/50 Ml Ns) 50 mls @ 100 mls/hr IVPB DAILY [facility] Last Admin: 06/12/16 09:24 Dose: 100 mls/hr Sodium Phosphate 15 mmole/ (Sodium Chloride) 255 mls @ 50 mls/hr IVPB .Q5H6M ONE Stop: 06/12/16 16:38 Insulin Aspart (Novolog) 0 unit SC ACHS [facility] PRN Reason: Protocol Last Admin: 06/12/16 08:34 Dose: Not Given Latanoprost (Xalatan Opht) 0 ml OU HS [facility] Last Admin: 06/11/16 21:25 Dose: 2.5 ml Pantoprazole Sodium (Protonix Inj) 40 mg IVP DAILY [facility] Last Admin: 06/12/16 09:22 Dose: 40 mg Potassium Phos/Sodium Phos (Neutra-Phos) 1 pkt PO 0800,1200,1700,2200 [facility] Last Admin: 06/12/16 08:00 Dose: 1 pkt Sodium Bicarbonate (Sodium Bicarbonate Tab) 650 mg PO Q6 [facility] Last Admin: 06/12/16 05:06 Dose: 650 mg Tamsulosin HCl (Flomax) 0.4 mg PO DAILY [facility] Last Admin: 06/12/16 09:27 Dose: 0.4 mg - Labs Labs: 06/12/16 05:54 06/12/16 05:54 PT 12.3 SECONDS (9.7-12.2) H 06/09/16 06:45 INR 1.1 06/09/16 06:45 APTT 31 SECONDS (21-34) 06/09/16 06:45 - Constitutional Appears: Non-toxic, No Acute Distress - Eye Exam Eye Exam: EOMI Pupil Exam: PERRL - GI/Abdominal Exam GI & Abdominal Exam: Soft, Normal Bowel Sounds - Extremities Exam Extremities Exam: Normal Inspection - Neurological Exam Neurological Exam: Alert, Awake, Oriented x3 - Skin Skin Exam: Normal Color, Warm Assessment and Plan - Assessment and Plan (Free Text) Assessment: 85M w/ of lower GI bleed and multiple bouts of melenotic stools Plan: Hgb decreased from 7.8 to 7.2 this AM - Transfused with two units No further planned GI intervention Plan is for OR tomorrow for colectomy Surgical team d/w Dr. Rosa Maria Meneses, PGY-1 <Erasmo Crane B - Last Filed: 06/14/16 15:50> Objective - Vital Signs/Intake and Output Vital Signs (last 24 hours): Temp Pulse Resp BP Pulse Ox 97.4 F L 71 12 118/73 100 06/14/16 12:00 06/14/16 12:09 06/14/16 12:09 06/14/16 12:09 06/14/16 12:00 Intake and Output: 06/14/16 06/14/16 06:59 18:59 Intake Total 355 650 Output Total 435 240 Balance -80 410 - Medications Medications: Current Medications Albumin Human (Albumin Human 25% (12.5 Gm/50 Ml)) 12.5 gm IV Q8 [facility] Last Admin: 06/14/16 06:00 Dose: 12.5 gm Ferric Sodium Gluconate Complex (Ferrlecit) 125 mg IVPB DAILY [facility] Stop: 06/17/16 10:31 Last Admin: 06/14/16 10:49 Dose: 125 mg Fluconazole (Diflucan Iv 100 Mg/50 Ml Ns) 50 mls @ 100 mls/hr IVPB DAILY [facility] Last Admin: 06/14/16 10:50 Dose: 100 mls/hr Latanoprost (Xalatan Opht) 0 ml OU HS [facility] Last Admin: 06/13/16 22:00 Dose: 2.5 ml Pantoprazole Sodium (Protonix Inj) 40 mg IVP DAILY [facility] Last Admin: 06/14/16 10:51 Dose: 40 mg Sodium Bicarbonate (Sodium Bicarbonate Tab) 650 mg PO Q6 [facility] Last Admin: 06/14/16 12:44 Dose: 650 mg Tamsulosin HCl (Flomax) 0.4 mg PO DAILY [facility] Last Admin: 06/14/16 10:52 Dose: 0.4 mg - Labs Labs: 06/14/16 06:34 06/14/16 04:00 PT 12.3 SECONDS (9.7-12.2) H 06/09/16 06:45 INR 1.1 06/09/16 06:45 APTT 28 SECONDS (21-34) 06/13/16 06:31 Attending/Attestation - Attestation I have personally seen and examined this patient.: Yes I have fully participated in the care of the patient.: Yes I have reviewed all pertinent clinical information, including history, physical exam and plan: Yes Notes (Text): 06/14/16 15:48 Pt was seen and examined at bedside on 06/12/16 Agree with above note and assessment CT angio and IR embolization If Angio is negative, pt would need Bleeding scan If continue to drop Hb, pt would need Subtotal colectomy Plan d.w Pt's son and ICU attending in detail. Risk and benefit explained in detail.
--- NOTE | 2016-06-12 12:17 | CP.PCM.PN ---
Subjective - Date & Time of Evaluation Date of Evaluation: 06/12/16 Time of Evaluation: 12:17 - Subjective Subjective: Awake, Alert Lethargic Active GI bleed Transfused with FFP, Cryo and PRBCs again FOR OR PEDRIOT for colectomy Objective - Vital Signs/Intake and Output Vital Signs (last 24 hours): Temp Pulse Resp BP Pulse Ox 98.3 F 72 13 111/60 100 06/12/16 08:00 06/12/16 09:00 06/12/16 09:00 06/12/16 08:51 06/12/16 09:00 Intake and Output: 06/12/16 06/12/16 06:59 18:59 Intake Total 250 250 Output Total 475 142 Balance -225 108 - Medications Medications: Current Medications Albumin Human (Albumin Human 25% (12.5 Gm/50 Ml)) 12.5 gm IV Q8 [facility] Last Admin: 06/12/16 05:05 Dose: 12.5 gm Ferric Sodium Gluconate Complex (Ferrlecit) 125 mg IVPB DAILY [facility] Stop: 06/17/16 10:31 Last Admin: 06/12/16 09:23 Dose: 125 mg Fluconazole (Diflucan Iv 100 Mg/50 Ml Ns) 50 mls @ 100 mls/hr IVPB DAILY [facility] Last Admin: 06/12/16 09:24 Dose: 100 mls/hr Sodium Phosphate 15 mmole/ (Sodium Chloride) 255 mls @ 50 mls/hr IVPB .Q5H6M ONE Stop: 06/12/16 16:38 Insulin Aspart (Novolog) 0 unit SC ACHS [facility]S [facility] PRN Reason: Protocol Last Admin: 06/12/16 08:34 Dose: Not Given Latanoprost (Xalatan Opht) 0 ml OU HS [facility] Last Admin: 06/11/16 21:25 Dose: 2.5 ml Pantoprazole Sodium (Protonix Inj) 40 mg IVP DAILY [facility] 234 [facility] Last Admin: 06/12/16 09:22 Dose: 40 mg Potassium Phos/Sodium Phos (Neutra-Phos) 1 pkt PO 0800,1200,1700,2200 [facility] 234 [facility]S [facility] Last Admin: 06/12/16 08:00 Dose: 1 pkt Sodium Bicarbonate (Sodium Bicarbonate Tab) 650 mg PO Q6 [facility] Last Admin: 06/12/16 05:06 Dose: 650 mg Tamsulosin HCl (Flomax) 0.4 mg PO DAILY [facility] Last Admin: 06/12/16 09:27 Dose: 0.4 mg - Labs Labs: 06/12/16 05:54 06/12/16 05:54 PT 12.3 SECONDS (9.7-12.2) H 06/09/16 06:45 INR 1.1 06/09/16 06:45 APTT 31 SECONDS (21-34) 06/09/16 06:45 - Constitutional Appears: Chronically Ill - Head Exam Head Exam: ATRAUMATIC, NORMAL INSPECTION, NORMOCEPHALIC - Eye Exam Eye Exam: EOMI - ENT Exam ENT Exam: Mucous Membranes Moist - Neck Exam Neck Exam: absent: Tenderness, Thyromegaly - Respiratory Exam Respiratory Exam: Rhonchi, NORMAL BREATHING PATTERN. absent: Rales, Wheezes - Cardiovascular Exam Cardiovascular Exam: REGULAR RHYTHM, +S1, +S2, Murmur (TAWNYA 3/6 with audible A2) . absent: JVD, +S4 - Extremities Exam Extremities Exam: Normal Inspection. 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 s/p FFP and platelet transfusion for refractory anemia and recurrent GI bleed. Off antiplatelets for now. Risk assesment in progress for possible surgical GI intervention for GI bleed scheduled tomorrow, there is no futher cardiac work up at this time. We will following along to assist in fluid management and hemodynamics for chronic systolic CHF and moderate . CADIAC: * Chronic compensated Mod LV systolic dysfunction, mild MR, Mod , distal septal and anterior akinesia due to chronic CAD s/p CABG in 2012. * Hx of known mild-mod LV dysfunction EF 35-40% due to ischemic cardiomyopathy * Euvolemic at present * BP and HE ar apporiate * Lower extrem edema is improved: * CKD stage 3A chronic * No AFIB seen on any EKG or documented strips Optimize medical therapy with BB, JERROD-I or ARB, Statin when tolerated and resume ASA or Plavix when safe from GI standpoint. Currently appropriately held for active GI bleed.
[2016-06-12] MEDS ORDERED: Dextrose 50% SYRINGE Inj (50 ml) IV PRN (15:08)
[2016-06-12] MEDS ORDERED: Iodixanol 320 mg/ml 150 ml Bottle IV ONE (15:27)
--- NOTE | 2016-06-12 18:06 | CP.PCM.PN ---
Subjective - Date & Time of Evaluation Date of Evaluation: 06/12/16 Time of Evaluation: 10:20 - Subjective Subjective: clinically same Objective - Vital Signs/Intake and Output Vital Signs (last 24 hours): Temp Pulse Resp BP Pulse Ox 98 F 79 11 L 110/56 L 100 06/12/16 16:26 06/12/16 16:41 06/12/16 16:41 06/12/16 16:41 06/12/16 16:41 Intake and Output: 06/12/16 06/12/16 06:59 18:59 Intake Total 250 600 Output Total 475 327 Balance -225 273 - Medications Medications: Current Medications Albumin Human (Albumin Human 25% (12.5 Gm/50 Ml)) 12.5 gm IV Q8 [facility] Last Admin: 06/12/16 15:57 Dose: 12.5 gm Dextrose (Dextrose 50% Inj) 25 ml IV STAT PRN PRN Reason: Hypoglycemia Ferric Sodium Gluconate Complex (Ferrlecit) 125 mg IVPB DAILY [facility] Stop: 06/17/16 10:31 Last Admin: 06/12/16 09:23 Dose: 125 mg Fluconazole (Diflucan Iv 100 Mg/50 Ml Ns) 50 mls @ 100 mls/hr IVPB DAILY [facility] Last Admin: 06/12/16 09:24 Dose: 100 mls/hr Insulin Aspart (Novolog) 0 unit SC ACHS [facility] PRN Reason: Protocol Last Admin: 06/12/16 16:20 Dose: Not Given Latanoprost (Xalatan Opht) 0 ml OU HS [facility] Last Admin: 06/11/16 21:25 Dose: 2.5 ml Pantoprazole Sodium (Protonix Inj) 40 mg IVP DAILY [facility] Last Admin: 06/12/16 09:22 Dose: 40 mg Potassium Phos/Sodium Phos (Neutra-Phos) 1 pkt PO 0800,1200,1700,2200 [facility] Last Admin: 06/12/16 16:52 Dose: Not Given Sodium Bicarbonate (Sodium Bicarbonate Tab) 650 mg PO Q6 [facility] Last Admin: 06/12/16 12:42 Dose: Not Given Tamsulosin HCl (Flomax) 0.4 mg PO DAILY [facility] Last Admin: 06/12/16 09:27 Dose: 0.4 mg - Labs Labs: 06/12/16 05:54 06/12/16 05:54 PT 12.3 SECONDS (9.7-12.2) H 06/09/16 06:45 INR 1.1 06/09/16 06:45 APTT 31 SECONDS (21-34) 06/09/16 06:45 Assessment and Plan (1) Acute renal failure Status: Acute (2) Anemia Status: Acute (3) BPH (benign prostatic hyperplasia) Status: Acute (4) Bilateral edema of lower extremity Status: Acute (5) DVT prophylaxis Status: Acute (6) Dry gangrene Status: Acute (7) Gastrointestinal hemorrhage Status: Acute (8) Hypochromic microcytic anemia Status: Acute (9) Hypovolemic shock Status: Acute (10) Memory difficulty Status: Acute (11) Paresthesia of both lower extremities Status: Acute (12) Pneumonia Status: Acute (13) CHF (congestive heart failure) Status: Chronic (14) Diabetes mellitus Status: Chronic - Assessment and Plan (Free Text) Plan: f/u with GI f/u with ID f/u with fatback trimmer f/u with general surgen risk and benefit explained in detail continue monitor H/H total colectomy scheduled Dextrose 5% protonix Novolog
[2016-06-12] MEDS ORDERED: Iodixanol 320 MG/ML 200 ML BOTTLE IV ONE (21:18)
[2016-06-12] MEDS: Latanoprost 2.5 ml Opht Soln OU SCH (22:30)
[2016-06-13] MEDS: Albumin Human 25% (12.5 gm/50 ml) IV SCH ×3 (06:02→22:00)
[2016-06-13 06:38] LABS: BASO % 0.7 % (0.0-2.0); EOS # 0.1 K/uL (0.0-0.7); EOS % 0.9 % (0.0-4.0); HEMATOCRIT 30.1 % (35.0-51.0); LYMPH # 2.1 K/uL (1.0-4.3); LYMPH % 36.1 % (20.0-40.0); MEAN CELL VOLUME 88.5 fL (80.0-94.0); MEAN CORPUSCULAR HEMOGLOBIN 29.7 pg (27.0-31.0); MEAN CORPUSCULAR HGB CONC 33.5 g/dL (33.0-37.0); MEAN PLATELET VOLUME 9.1 fL (7.2-11.7); MONO # 0.5 K/uL (0.0-0.8); MONO % 7.9 % (0.0-10.0); NRBC % 0.1 % (0.0-2.0); RED CELL DISTRIBUTION WIDTH 15.3 % (11.5-14.5); WHITE BLOOD COUNT 5.9 K/uL (4.8-10.8)
[2016-06-13 06:50] LABS: CHLORIDE 110 mmol/L (98-107); POTASSIUM 3.9 mmol/L (3.6-5.2); SODIUM 146 mmol/L (132-148)
[2016-06-13 06:52] LABS: ALB/GLOB RATIO 1.1 (1.0-2.1); ALKALINE PHOSPHATASE 44 U/L (38-126); AST/SGOT 15 U/L (17-59); BILIRUBIN,TOTAL 0.8 mg/dL (0.2-1.3); CARBON DIOXIDE 22 mmol/L (22-30); GFR AFRICAN-AMERICAN > 60; TOTAL PROTEIN 4.9 g/dL (6.3-8.3)
[2016-06-13 06:53] LABS: ALT/SGPT 24 U/L (21-72); BLOOD UREA NITROGEN 8 mg/dL (9-20); CALCIUM 7.3 mg/dl (8.6-10.4); GLUCOSE,RANDOM 75 mg/dL (75-110); MAGNESIUM 1.5 mg/dL (1.6-2.3)
[2016-06-13] MEDS: (Novolog) Insulin Aspart, Recombinant 100 u/ml 10 ml vial SC SCH (07:30)
[2016-06-13] MEDS: Potassium & Sodium Phosphate PO SCH ×4 (08:00→22:00)
--- NOTE | 2016-06-13 09:03 | CP.PCM.PN ---
<Indra Hennessy - Last Filed: 06/13/16 08:58> Subjective - Date & Time of Evaluation Date of Evaluation: 06/13/16 Time of Evaluation: 05:50 - Subjective Subjective: PGY4 GI Fellow Progress Note Patient seen and examined bedside this morning. Nursing at bedside. Patient did not have any further episodes of melena overnight or this morning. Denies any complaints at present. 12 system ROS performed and negative except where stated. Objective - Vital Signs/Intake and Output Vital Signs (last 24 hours): Temp Pulse Resp BP Pulse Ox 98 F 69 11 L 117/55 L 100 06/13/16 04:10 06/13/16 07:09 06/13/16 07:09 06/13/16 07:09 06/13/16 07:09 Intake and Output: 06/13/16 06/13/16 06:59 18:59 Intake Total 905 0 Output Total 578 40 Balance 327 -40 - Medications Medications: Current Medications Albumin Human (Albumin Human 25% (12.5 Gm/50 Ml)) 12.5 gm IV Q8 [facility] Last Admin: 06/13/16 06:02 Dose: 12.5 gm Dextrose (Dextrose 50% Inj) 25 ml IV STAT PRN PRN Reason: Hypoglycemia Ferric Sodium Gluconate Complex (Ferrlecit) 125 mg IVPB DAILY [facility] Stop: 06/17/16 10:31 Last Admin: 06/12/16 09:23 Dose: 125 mg Fluconazole (Diflucan Iv 100 Mg/50 Ml Ns) 50 mls @ 100 mls/hr IVPB DAILY [facility] Last Admin: 06/12/16 09:24 Dose: 100 mls/hr Insulin Aspart (Novolog) 0 unit SC ACHS [facility] PRN Reason: Protocol Last Admin: 06/12/16 22:08 Dose: Not Given Latanoprost (Xalatan Opht) 0 ml OU HS [facility] Last Admin: 06/12/16 22:30 Dose: 2.5 ml Pantoprazole Sodium (Protonix Inj) 40 mg IVP DAILY [facility] Last Admin: 06/12/16 09:22 Dose: 40 mg Potassium Phos/Sodium Phos (Neutra-Phos) 1 pkt PO 0800,1200,1700,2200 [facility] Last Admin: 06/12/16 22:07 Dose: Not Given Sodium Bicarbonate (Sodium Bicarbonate Tab) 650 mg PO Q6 [facility] Last Admin: 06/13/16 06:00 Dose: Not Given Tamsulosin HCl (Flomax) 0.4 mg PO DAILY [facility] Last Admin: 06/12/16 09:27 Dose: 0.4 mg - Labs Labs: 06/13/16 06:31 06/13/16 06:31 PT 12.3 SECONDS (9.7-12.2) H 06/09/16 06:45 INR 1.1 06/09/16 06:45 APTT 28 SECONDS (21-34) 06/13/16 06:31 - Constitutional Appears: Non-toxic, No Acute Distress - Eye Exam Eye Exam: EOMI, PERRL - ENT Exam ENT Exam: Mucous Membranes Dry - Respiratory Exam Respiratory Exam: Clear to Ausculation Bilateral. absent: Rales, Rhonchi, Wheezes - Cardiovascular Exam Cardiovascular Exam: RRR, +S1, +S2 - GI/Abdominal Exam GI & Abdominal Exam: Soft, Normal Bowel Sounds. absent: Distended, Firm, Guarding, Rigid, Tenderness, Organomegaly - Extremities Exam Extremities Exam: Normal Inspection. absent: Pedal Edema - Neurological Exam Neurological Exam: Alert, Awake, Oriented x3 - Psychiatric Exam Psychiatric exam: Normal Affect, Normal Mood - Skin Skin Exam: Dry, Warm Assessment and Plan - Assessment and Plan (Free Text) Assessment: Patient is an 85yo male with PMHx significant for unknown prior colectomy with ileocolonic anastamosis, anemia, CAD s/p 3 vessel CABG, moderate aortic stenosis , ischemic cardiomyopathy (EF 35-40%), CKD Stage 3, Hypertension, Hyperlipidemia who presented from [place] with weakness and hematochezia. -Acute blood loss anemia -Ileocolonic anastamotic ulceration -PUD -CAD -Systolic CHF -CKD -HTN -HLD Plan: -No episodes of melena last night and fortunately, HGB uptrending today -Patient's family initially agreed to colectomy, now refusing surgery again -Discussed case with surgical team at length and agree with current plan -Patient to have bleeding scan again today -Will repeat my discussion with patient's son today; our recommendation would be to proceed with surgery if family/patient agree in order to achieve more definitive, though not guaranteed, control of bleeding; if family opts to avoid more aggressive management, consider palliation -No further endoscopic interventions planned <Shantal Jones - Last Filed: 06/13/16 16:44> Objective - Vital Signs/Intake and Output Vital Signs (last 24 hours): Temp Pulse Resp BP Pulse Ox 98 F 73 11 L 125/77 99 06/13/16 16:00 06/13/16 16:09 06/13/16 16:09 06/13/16 16:09 06/13/16 14:08 Intake and Output: 06/13/16 06/13/16 06:59 18:59 Intake Total 905 800 Output Total 578 275 Balance 327 525 - Medications Medications: Current Medications Albumin Human (Albumin Human 25% (12.5 Gm/50 Ml)) 12.5 gm IV Q8 [facility] Last Admin: 06/13/16 12:59 Dose: 12.5 gm Ferric Sodium Gluconate Complex (Ferrlecit) 125 mg IVPB DAILY [facility] Stop: 06/17/16 10:31 Last Admin: 06/13/16 10:36 Dose: 125 mg Fluconazole (Diflucan Iv 100 Mg/50 Ml Ns) 50 mls @ 100 mls/hr IVPB DAILY [facility] Last Admin: 06/13/16 10:36 Dose: 100 mls/hr Latanoprost (Xalatan Opht) 0 ml OU HS [facility] Last Admin: 06/12/16 22:30 Dose: 2.5 ml Pantoprazole Sodium (Protonix Inj) 40 mg IVP DAILY [facility] Last Admin: 06/13/16 10:34 Dose: 40 mg Potassium Phos/Sodium Phos (Neutra-Phos) 1 pkt PO 0800,1200,1700,2200 [facility] Last Admin: 06/13/16 12:52 Dose: 1 pkt Sodium Bicarbonate (Sodium Bicarbonate Tab) 650 mg PO Q6 [facility] Last Admin: 06/13/16 12:52 Dose: 650 mg Tamsulosin HCl (Flomax) 0.4 mg PO DAILY [facility] Last Admin: 06/13/16 10:36 Dose: Not Given - Labs Labs: 06/13/16 09:56 06/13/16 06:31 PT 12.3 SECONDS (9.7-12.2) H 06/09/16 06:45 INR 1.1 06/09/16 06:45 APTT 28 SECONDS (21-34) 06/13/16 06:31 Attending/Attestation - Attestation I have personally seen and examined this patient.: Yes I have fully participated in the care of the patient.: Yes I have reviewed all pertinent clinical information, including history, physical exam and plan: Yes Notes (Text): Patient seen and examined with GI fellow. Agree with his note as documented above with the following additions/exceptions. This is a 85 year old male with h/o aortic stenosis, ischemic cardiomyopathy, CAD s/p CABG, HTN, HL. He remains in ICU. He has chronic intermittent GI bleeding with known duodenal ulcer s/p epi/coag and ileocolonic anastomotic ulcer that is endoscopically refractory to treatment. He had no further melena overnight. Discussed with surgical team and ICU team at length. Patient's family ambivalent about pursuing surgery--will clarify with family. Continue PPI therapy. Continue supportive care. 06/13/16 16:43
[2016-06-13 10:11] LABS: BASO % 0.2 % (0.0-2.0); EOS # 0.1 K/uL (0.0-0.7); EOS % 1.2 % (0.0-4.0); HEMATOCRIT 30.8 % (35.0-51.0); LYMPH % 31.1 % (20.0-40.0); MEAN CORPUSCULAR HEMOGLOBIN 29.4 pg (27.0-31.0); MEAN CORPUSCULAR HGB CONC 33.4 g/dL (33.0-37.0); MEAN PLATELET VOLUME 8.4 fL (7.2-11.7); MONO # 0.5 K/uL (0.0-0.8); MONO % 8.1 % (0.0-10.0); NRBC % 0.2 % (0.0-2.0); RED CELL DISTRIBUTION WIDTH 15.4 % (11.5-14.5); WHITE BLOOD COUNT 6.4 K/uL (4.8-10.8)
--- NOTE | 2016-06-13 10:34 | NM ---
PROCEDURE: Nuclear medicine gastrointestinal bleeding scan. HISTORY: GI bleeding COMPARISON: 06/05/2016. Summary of findings on the comparison examination: Findings suggestive of active gastrointestinal bleeding large bowel splenic flexure region. TECHNIQUE: 4 cc of patient blood was withdrawn and mixed with 21 mCi of technetium ultra tagged. Images of the abdomen and pelvis were obtained in the anterior and posterior projection at 1 min intervals over a period of 45 min. FINDINGS: No abnormal extravasation of tracer was observed throughout the exam to indicate active bleeding within or outside the gastrointestinal tract. Physiologic activity was seen in the heart, liver, spleen and blood vessels. IMPRESSION: No evidence of acute gastrointestinal hemorrhage.
[2016-06-13] MEDS: Fluconazole IV 100mg/50 ml NS 50 ML IVPB SCH (10:36)
[2016-06-13] MEDS: Ferric Sodium Gluconat Complex 62.5 mg/5 ml Vial IVPB SCH (10:36)
--- NOTE | 2016-06-13 10:41 | CP.PCM.PN ---
Subjective - Date & Time of Evaluation Date of Evaluation: 06/13/16 Time of Evaluation: 01:20 - Subjective Subjective: clinically same Objective - Vital Signs/Intake and Output Vital Signs (last 24 hours): Temp Pulse Resp BP Pulse Ox 98 F 69 11 L 117/55 L 100 06/13/16 04:10 06/13/16 07:09 06/13/16 07:09 06/13/16 07:09 06/13/16 07:09 Intake and Output: 06/13/16 06/13/16 06:59 18:59 Intake Total 905 0 Output Total 578 40 Balance 327 -40 - Medications Medications: Current Medications Albumin Human (Albumin Human 25% (12.5 Gm/50 Ml)) 12.5 gm IV Q8 [facility] Last Admin: 06/13/16 06:02 Dose: 12.5 gm Ferric Sodium Gluconate Complex (Ferrlecit) 125 mg IVPB DAILY [facility] Stop: 06/17/16 10:31 Last Admin: 06/13/16 10:36 Dose: 125 mg Fluconazole (Diflucan Iv 100 Mg/50 Ml Ns) 50 mls @ 100 mls/hr IVPB DAILY [facility] Last Admin: 06/13/16 10:36 Dose: 100 mls/hr Latanoprost (Xalatan Opht) 0 ml OU HS [facility] Last Admin: 06/12/16 22:30 Dose: 2.5 ml Pantoprazole Sodium (Protonix Inj) 40 mg IVP DAILY [facility] Last Admin: 06/13/16 10:34 Dose: 40 mg Potassium Phos/Sodium Phos (Neutra-Phos) 1 pkt PO 0800,1200,1700,2200 [facility] Last Admin: 06/13/16 08:00 Dose: Not Given Sodium Bicarbonate (Sodium Bicarbonate Tab) 650 mg PO Q6 [facility] Last Admin: 06/13/16 06:00 Dose: Not Given Tamsulosin HCl (Flomax) 0.4 mg PO DAILY [facility] Last Admin: 06/13/16 10:36 Dose: Not Given - Labs Labs: 06/13/16 09:56 06/13/16 06:31 PT 12.3 SECONDS (9.7-12.2) H 06/09/16 06:45 INR 1.1 06/09/16 06:45 APTT 28 SECONDS (21-34) 06/13/16 06:31 - Constitutional Appears: Well - Head Exam Head Exam: ATRAUMATIC, NORMAL INSPECTION, NORMOCEPHALIC - Eye Exam Eye Exam: EOMI, Normal appearance, PERRL Pupil Exam: NORMAL ACCOMODATION, PERRL - ENT Exam ENT Exam: Mucous Membranes Moist, Normal Exam - Neck Exam Neck Exam: Full ROM, Normal Inspection. absent: Lymphadenopathy - Respiratory Exam Respiratory Exam: Decreased Breath Sounds - Cardiovascular Exam Cardiovascular Exam: REGULAR RHYTHM, +S1, +S2 - GI/Abdominal Exam GI & Abdominal Exam: Soft, Diminished Bowel Sounds - Rectal Exam Rectal Exam: Deferred Assessment and Plan (1) Acute renal failure Status: Acute (2) Anemia Status: Acute (3) BPH (benign prostatic hyperplasia) Status: Acute (4) Bilateral edema of lower extremity Status: Acute (5) DVT prophylaxis Status: Acute (6) Dry gangrene Status: Acute (7) Gastrointestinal hemorrhage Status: Acute (8) Hypochromic microcytic anemia Status: Acute (9) Hypovolemic shock Status: Acute (10) Memory difficulty Status: Acute (11) Paresthesia of both lower extremities Status: Acute (12) Pneumonia Status: Acute (13) CHF (congestive heart failure) Status: Chronic (14) Diabetes mellitus Status: Chronic - Assessment and Plan (Free Text) Plan: f/u with GI f/u with ID f/u with momd teacher f/u with pulmology continue monitor H/H s/p 2 PRBC protonix Novolog
--- NOTE | 2016-06-13 10:47 | CT ---
PROCEDURE: CT Abdomen and Pelvis with Oral contrast. HISTORY: GI bleed COMPARISON: None. TECHNIQUE: Contiguous axial images of the abdomen and pelvis. Non contrast and IV contrast was administered. Coronal and Sagittal reformats generated. IV contrast: 100 ml Visipaque 320 Radiation dose: Total exam DLP = 1466.24 MGy-cm. This CT exam was performed using one or more of the following dose reduction techniques: Automated exposure control, adjustment of the mA and/or kV according to patient size, and/or use of iterative reconstruction technique. FINDINGS: LOWER THORAX: Small bilateral pleural effusions. Plaque compressive atelectasis. LIVER: Unremarkable. No gross lesion or ductal dilatation. GALLBLADDER AND BILE DUCTS: Cholecystectomy. PANCREAS: Unremarkable. No mass. No ductal dilatation. SPLEEN: Unremarkable. No splenomegaly. ADRENALS: Unremarkable. KIDNEYS AND URETERS: Unremarkable. No stone or hydronephrosis. BLADDER: Folley in place. REPRODUCTIVE: Unremarkable. APPENDIX: Unremarkable. BOWEL: Previously described gastric mucosal thickening and duodenal thickening appear less pronounced. Status post partial large bowel resection. PERITONEUM: Unremarkable. No fluid collection. No free air. LYMPH NODES: Unremarkable. No enlarged lymph nodes. VASCULATURE: No evidence of gastrointestinal bleed. No evidence of angiodysplasia. BONES: No fracture or destructive lesion. OTHER FINDINGS: None. IMPRESSION: CT angiogram of the abdomen pelvis is negative for gastrointestinal bleed.
--- NOTE | 2016-06-13 17:25 | CP.CCUPN ---
CCU Subjective - Physician Review Events Since Last Encounter (Free Text): 06/13/16 17:13 patient seen and examined, stable. he is delirius, but more oriented when family is here, switched to regular diet today and has been eating food that family brings. ros very difficult since he is delirius and keeps saying thank you pe: bp 116/68 mmhg, hr 69 bpm, afebrile, rr 16 bpm awake, not oriented, consused about place and time, recognizes family, not combative s1, s2 rrr lungs good bilateral air of entry abdomen soft, non tender able to move all extremiteis a/p: gi bleed: another bleeding scan this am negative. I spoke with son and bedside and Dr. Duran, surgical product sales consultant. Family is willing to go through surgery if necessary, as of now the plan is to wait and get surgery if he re-bleeds. d/c insulin since blood sugars are tight replace Mg IV CCU Objective - Vital Signs / Intake & Output Vital Signs (Last 4 hours): Vital Signs Temp Pulse Resp BP Pulse Ox 06/13/16 16:09 73 11 L 125/77 06/13/16 16:00 98 F 73 11 L 06/13/16 15:11 79 13 06/13/16 15:09 79 13 134/83 06/13/16 15:00 80 15 06/13/16 14:08 73 14 135/76 99 06/13/16 14:00 75 15 100 Intake and Output (Last 8hrs): Intake & Output 06/13/16 06/13/16 06/13/16 06:59 14:59 22:59 Intake Total 855 660 140 Output Total 445 250 25 Balance 410 410 115 Weight 156 lb Intake: Intake, IV Amount 170 300 Right Medial Port PICC 170 300 Oral 0 360 140 Blood Product 625 Red Blood Cells Cpd As1 325 Lr Unit [id number] Other 60 Red Blood Cells Cpd As1 60 Lr Unit [id number] Output: Urine 445 250 25 Urethral (Cardenas) 445 250 25 Other: # Bowel Movements 1 1 - Physical Exam Head: Positive for: Atraumatic, Normocephalic Pupils: Positive for: PERRL Extroacular Muscles: Positive for: EOMI Conjunctiva: Positive for: Normal Mouth: Positive for: Moist Mucous Membranes Neck: Positive for: Normal Range of Motion Respiratory/Chest: Positive for: Clear to Auscultation, Good Air Exchange. Negative for: Wheezes Cardiovascular: Positive for: Normal S1, S2 Abdomen: Positive for: Tenderness, Normal Bowel Sounds. Negative for: Peritoneal Signs Back: Positive for: Normal Inspection Upper Extremity: Positive for: Normal Inspection Lower Extremity: Positive for: Normal Inspection Neurological: Positive for: CN II-XII Intact Skin: Positive for: Warm, Dry Psychiatric: Positive for: Lethargic - Medications Active Medications: Active Medications Generic Name Dose Route Start Last Admin Trade Name Freq PRN Reason Stop Dose Admin Albumin Human 12.5 gm 06/09/16 23:45 06/13/16 12:59 Albumin Human 25% (12.5 Gm/50 Ml) IV 12.5 gm Q8 [facility] Administration Ferric Sodium Gluconate Complex 125 mg 06/09/16 10:30 06/13/16 10:36 Ferrlecit IVPB 06/17/16 10:31 125 mg DAILY [facility] Administration Fluconazole 50 mls @ 100 mls/hr 06/04/16 10:00 06/13/16 10:36 Diflucan Iv 100 Mg/50 Ml Ns IVPB 100 mls/hr DAILY [facility] Administration Latanoprost 0 ml 05/22/16 22:00 06/12/16 22:30 Xalatan Opht OU 2.5 ml HS [facility] Administration Pantoprazole Sodium 40 mg 06/11/16 10:00 06/13/16 10:34 Protonix Inj IVP 40 mg DAILY [facility] Administration Potassium Phos/Sodium Phos 1 pkt 06/11/16 22:00 06/13/16 12:52 Neutra-Phos PO 1 pkt 0800,1200,1700,2200 [facility] Administration Sodium Bicarbonate 650 mg 06/10/16 00:00 06/13/16 12:52 Sodium Bicarbonate Tab PO 650 mg Q6 [facility] Administration Tamsulosin HCl 0.4 mg 05/22/16 10:00 06/13/16 10:36 Flomax PO Not Given DAILY [facility] - Patient Studies Lab Studies: Lab Studies 06/13/16 06/13/16 06/13/16 Range/Units 16:18 11:27 09:56 WBC 6.4 (4.8-10.8) K/uL RBC 3.50 L (4.40-5.90) Mil/uL Hgb 10.3 L (12.0-18.0) g/dL Hct 30.8 L (35.0-51.0) % MCV 88.0 (80.0-94.0) fL MCH 29.4 (27.0-31.0) pg MCHC 33.4 (33.0-37.0) g/dL RDW 15.4 H (11.5-14.5) % Plt Count 132 (130-400) K/uL MPV 8.4 (7.2-11.7) fL Neut % (Auto) 59.4 (50.0-75.0) % Lymph % (Auto) 31.1 (20.0-40.0) % [place] % (Auto) 8.1 (0.0-10.0) % Eos % (Auto) 1.2 (0.0-4.0) % Baso % (Auto) 0.2 (0.0-2.0) % Neut # 3.8 (1.8-7.0) K/uL Lymph # 2.0 (1.0-4.3) K/uL [place] # 0.5 (0.0-0.8) K/uL Eos # 0.1 (0.0-0.7) K/uL Baso # 0.0 (0.0-0.2) K/uL Differential Comment APTT (21-34) SECONDS Sodium (132-148) mmol/L Potassium (3.6-5.2) mmol/L Chloride (98-107) mmol/L Carbon Dioxide (22-30) mmol/L Anion Gap (10-20) BUN (9-20) mg/dL Creatinine (0.8-1.5) MG/DL Est GFR ( Amer) Est GFR (Non-Af Amer) POC Glucose (mg/dL) 126 H 111 H (65-110) mg/dL Random Glucose (75-110) mg/dL Calcium (8.6-10.4) mg/dl Phosphorus (2.5-4.5) mg/dL Magnesium (1.6-2.3) mg/dL Total Bilirubin (0.2-1.3) mg/dL AST (17-59) U/L ALT (21-72) U/L Alkaline Phosphatase (38-126) U/L Total Protein (6.3-8.3) g/dL Albumin (3.5-5.0) g/dL Globulin (2.2-3.9) gm/dL Albumin/Globulin Ratio (1.0-2.1) Blood Type Antibody Screen 06/13/16 06/12/16 06/12/16 Range/Units 06:31 21:07 12:19 WBC 5.9 (4.8-10.8) K/uL RBC 3.40 L (4.40-5.90) Mil/uL Hgb 10.1 L D (12.0-18.0) g/dL Hct 30.1 L (35.0-51.0) % MCV 88.5 (80.0-94.0) fL MCH 29.7 (27.0-31.0) pg MCHC 33.5 (33.0-37.0) g/dL RDW 15.3 H (11.5-14.5) % Plt Count 104 L D (130-400) K/uL MPV 9.1 (7.2-11.7) fL Neut % (Auto) 54.4 (50.0-75.0) % Lymph % (Auto) 36.1 (20.0-40.0) % [place] % (Auto) 7.9 (0.0-10.0) % Eos % (Auto) 0.9 (0.0-4.0) % Baso % (Auto) 0.7 (0.0-2.0) % Neut # 3.2 (1.8-7.0) K/uL Lymph # 2.1 (1.0-4.3) K/uL [place] # 0.5 (0.0-0.8) K/uL Eos # 0.1 (0.0-0.7) K/uL Baso # 0.0 (0.0-0.2) K/uL Differential Comment APTT 28 (21-34) SECONDS Sodium 146 (132-148) mmol/L Potassium 3.9 (3.6-5.2) mmol/L Chloride 110 H (98-107) mmol/L Carbon Dioxide 22 (22-30) mmol/L Anion Gap 18 (10-20) BUN 8 L (9-20) mg/dL Creatinine 1.0 (0.8-1.5) MG/DL Est GFR ( Amer) > 60 Est GFR (Non-Af Amer) > 60 POC Glucose (mg/dL) 91 (65-110) mg/dL Random Glucose 75 (75-110) mg/dL Calcium 7.3 L (8.6-10.4) mg/dl Phosphorus 3.0 (2.5-4.5) mg/dL Magnesium 1.5 L (1.6-2.3) mg/dL Total Bilirubin 0.8 (0.2-1.3) mg/dL AST 15 L D (17-59) U/L ALT 24 (21-72) U/L Alkaline Phosphatase 44 (38-126) U/L Total Protein 4.9 L (6.3-8.3) g/dL Albumin 2.6 L (3.5-5.0) g/dL Globulin 2.3 (2.2-3.9) gm/dL Albumin/Globulin Ratio 1.1 (1.0-2.1) Blood Type O POSITIVE Antibody Screen Negative Laboratory Results - last 24 hr 06/12/16 06/12/16 06/13/16 12:19 21:07 06:31 WBC 5.9 RBC 3.40 L Hgb 10.1 L D Hct 30.1 L MCV 88.5 MCH 29.7 MCHC 33.5 RDW 15.3 H Plt Count 104 L D MPV 9.1 Neut % (Auto) 54.4 Lymph % (Auto) 36.1 [place] % (Auto) 7.9 Eos % (Auto) 0.9 Baso % (Auto) 0.7 Neut # 3.2 Lymph # 2.1 [place] # 0.5 Eos # 0.1 Baso # 0.0 Differential Comment APTT 28 Sodium 146 Potassium 3.9 Chloride 110 H Carbon Dioxide 22 Anion Gap 18 BUN 8 L Creatinine 1.0 Est GFR ( Amer) > 60 Est GFR (Non-Af Amer) > 60 POC Glucose (mg/dL) 91 Random Glucose 75 Calcium 7.3 L Phosphorus 3.0 Magnesium 1.5 L Total Bilirubin 0.8 AST 15 L D ALT 24 Alkaline Phosphatase 44 Total Protein 4.9 L Albumin 2.6 L Globulin 2.3 Albumin/Globulin Ratio 1.1 Blood Type O POSITIVE Antibody Screen Negative 06/13/16 06/13/16 06/13/16 09:56 11:27 16:18 WBC 6.4 RBC 3.50 L Hgb 10.3 L Hct 30.8 L MCV 88.0 MCH 29.4 MCHC 33.4 RDW 15.4 H Plt Count 132 MPV 8.4 Neut % (Auto) 59.4 Lymph % (Auto) 31.1 [place] % (Auto) 8.1 Eos % (Auto) 1.2 Baso % (Auto) 0.2 Neut # 3.8 Lymph # 2.0 [place] # 0.5 Eos # 0.1 Baso # 0.0 Differential Comment APTT Sodium Potassium Chloride Carbon Dioxide Anion Gap BUN Creatinine Est GFR ( Amer) Est GFR (Non-Af Amer) POC Glucose (mg/dL) 111 H 126 H Random Glucose Calcium Phosphorus Magnesium Total Bilirubin AST ALT Alkaline Phosphatase Total Protein Albumin Globulin Albumin/Globulin Ratio Blood Type Antibody Screen Fingerstick Blood Sugar Results: 115 Critical Care Progress Note - Nutrition Nutrition: Nutrition Category Date Time Status Consistent Carbohydrate [DIET] Diets 06/13/16 Dinner Active
[2016-06-13] MEDS ORDERED: PPN IV ONE (18:00)
[2016-06-13] MEDS ORDERED: Fat Emulsion 20% IV 500 ML IV SCH (18:00)
--- NOTE | 2016-06-13 18:24 | CP.PCM.PN ---
<Leobardo Meneses - Last Filed: 06/13/16 18:20> Subjective - Date & Time of Evaluation Date of Evaluation: 06/13/16 Time of Evaluation: 08:00 - Subjective Subjective: PGY-[address] Crane Pt S&E. Nursing reports loose blackish stool this AM. Hemoglobin increased from 7.2 to 10. 3 this AM, after receiving two units yesterday. Pt denies abdominal pain, N/V, or other complaints at this time. Objective - Vital Signs/Intake and Output Vital Signs (last 24 hours): Temp Pulse Resp BP Pulse Ox 98 F 71 11 L 116/68 100 06/13/16 16:00 06/13/16 17:09 06/13/16 17:09 06/13/16 17:09 06/13/16 17:09 Intake and Output: 06/13/16 06/13/16 06:59 18:59 Intake Total 905 850 Output Total 578 325 Balance 327 525 - Medications Medications: Current Medications Albumin Human (Albumin Human 25% (12.5 Gm/50 Ml)) 12.5 gm IV Q8 [facility] Last Admin: 06/13/16 12:59 Dose: 12.5 gm Ferric Sodium Gluconate Complex (Ferrlecit) 125 mg IVPB DAILY [facility] Stop: 06/17/16 10:31 Last Admin: 06/13/16 10:36 Dose: 125 mg Fluconazole (Diflucan Iv 100 Mg/50 Ml Ns) 50 mls @ 100 mls/hr IVPB DAILY [facility] Last Admin: 06/13/16 10:36 Dose: 100 mls/hr Latanoprost (Xalatan Opht) 0 ml OU HS [facility] Last Admin: 06/12/16 22:30 Dose: 2.5 ml Pantoprazole Sodium (Protonix Inj) 40 mg IVP DAILY [facility] Last Admin: 06/13/16 10:34 Dose: 40 mg Potassium Phos/Sodium Phos (Neutra-Phos) 1 pkt PO 0800,1200,1700,2200 [facility] Last Admin: 06/13/16 17:24 Dose: 1 pkt Sodium Bicarbonate (Sodium Bicarbonate Tab) 650 mg PO Q6 [facility] Last Admin: 06/13/16 17:24 Dose: 650 mg Tamsulosin HCl (Flomax) 0.4 mg PO DAILY [facility] Last Admin: 06/13/16 10:36 Dose: Not Given - Labs Labs: 06/13/16 09:56 06/13/16 06:31 PT 12.3 SECONDS (9.7-12.2) H 06/09/16 06:45 INR 1.1 06/09/16 06:45 APTT 28 SECONDS (21-34) 06/13/16 06:31 - Constitutional Appears: Non-toxic, No Acute Distress - Eye Exam Eye Exam: EOMI Pupil Exam: PERRL - ENT Exam ENT Exam: Mucous Membranes Dry - Respiratory Exam Respiratory Exam: NORMAL BREATHING PATTERN - GI/Abdominal Exam GI & Abdominal Exam: Soft, Normal Bowel Sounds - Neurological Exam Neurological Exam: Alert, Awake. absent: Oriented x3 - Psychiatric Exam Psychiatric exam: Normal Affect, Normal Mood - Skin Skin Exam: Normal Color, Warm Assessment and Plan - Assessment and Plan (Free Text) Assessment: 85M w/ of lower GI bleed and multiple bouts of melenotic stools Plan: Hgb uptrending from 7.2 to 10.3 this AM - Transfused with two units yesterday Family vacillating about surgery - Pt was scheduled for OR today, but family concerned about risks of surgery - Plan: if pt rebleeds at any point over the weekend or beyond family agrees to surgery, for now, patient's family is opting for continued conservative management Surgical team d/w Dr. Rosa Maria Meneses, PGY-1 <Erasmo Crane - Last Filed: 06/14/16 16:01> Objective - Vital Signs/Intake and Output Vital Signs (last 24 hours): Temp Pulse Resp BP Pulse Ox 97.4 F L 71 12 118/73 100 06/14/16 12:00 06/14/16 12:09 06/14/16 12:09 06/14/16 12:09 06/14/16 12:00 Intake and Output: 06/14/16 06/14/16 06:59 18:59 Intake Total 355 650 Output Total 435 240 Balance -80 410 - Medications Medications: Current Medications Albumin Human (Albumin Human 25% (12.5 Gm/50 Ml)) 12.5 gm IV Q8 [facility] Last Admin: 06/14/16 06:00 Dose: 12.5 gm Ferric Sodium Gluconate Complex (Ferrlecit) 125 mg IVPB DAILY [facility] Stop: 06/17/16 10:31 Last Admin: 06/14/16 10:49 Dose: 125 mg Fluconazole (Diflucan Iv 100 Mg/50 Ml Ns) 50 mls @ 100 mls/hr IVPB DAILY [facility] Last Admin: 06/14/16 10:50 Dose: 100 mls/hr Latanoprost (Xalatan Opht) 0 ml OU HS [facility] Last Admin: 06/13/16 22:00 Dose: 2.5 ml Pantoprazole Sodium (Protonix Inj) 40 mg IVP DAILY [facility] Last Admin: 06/14/16 10:51 Dose: 40 mg Sodium Bicarbonate (Sodium Bicarbonate Tab) 650 mg PO Q6 [facility] Last Admin: 06/14/16 12:44 Dose: 650 mg Tamsulosin HCl (Flomax) 0.4 mg PO DAILY [facility] Last Admin: 06/14/16 10:52 Dose: 0.4 mg - Labs Labs: 06/14/16 06:34 06/14/16 04:00 PT 12.3 SECONDS (9.7-12.2) H 06/09/16 06:45 INR 1.1 06/09/16 06:45 APTT 28 SECONDS (21-34) 06/13/16 06:31 Attending/Attestation - Attestation I have personally seen and examined this patient.: Yes I have fully participated in the care of the patient.: Yes I have reviewed all pertinent clinical information, including history, physical exam and plan: Yes Notes (Text): 06/14/16 15:59 Pt was seen and examined at bedside on 06/13/16 Agree with above note and assessment Pt with Lower GI bleed CT angio and bleeding scan is negative for Bleeding. HB 10.3 No need for surgical intervention at present. If pt bleeds again, pt get bleeding scan done to find source of bleeding. Plan d.w pt and ICU attending in detail. Risk and benefit explained in detail.
[2016-06-13] MEDS: Latanoprost 2.5 ml Opht Soln OU SCH (22:00)
[2016-06-14] MEDS: Albumin Human 25% (12.5 gm/50 ml) IV SCH ×2 (06:00→16:15)
[2016-06-14 06:41] LABS: BASO % 0.2 % (0.0-2.0); EOS # 0.1 K/uL (0.0-0.7); EOS % 1.5 % (0.0-4.0); HEMATOCRIT 29.8 % (35.0-51.0); LYMPH # 1.7 K/uL (1.0-4.3); MEAN CELL VOLUME 88.7 fL (80.0-94.0); MEAN CORPUSCULAR HEMOGLOBIN 29.1 pg (27.0-31.0); MEAN CORPUSCULAR HGB CONC 32.8 g/dL (33.0-37.0); MEAN PLATELET VOLUME 8.4 fL (7.2-11.7); MONO # 0.5 K/uL (0.0-0.8); MONO % 8.3 % (0.0-10.0); RED CELL DISTRIBUTION WIDTH 15.4 % (11.5-14.5); WHITE BLOOD COUNT 5.5 K/uL (4.8-10.8)
[2016-06-14 06:58] LABS: CHLORIDE 109 mmol/L (98-107); POTASSIUM 3.8 mmol/L (3.6-5.2); SODIUM 146 mmol/L (132-148)
[2016-06-14 07:00] LABS: ALB/GLOB RATIO 1.2 (1.0-2.1); ALKALINE PHOSPHATASE 45 U/L (38-126); AST/SGOT 14 U/L (17-59); BILIRUBIN,TOTAL 0.7 mg/dL (0.2-1.3); CARBON DIOXIDE 23 mmol/L (22-30); GFR AFRICAN-AMERICAN > 60
[2016-06-14 07:01] LABS: ALT/SGPT 20 U/L (21-72); BLOOD UREA NITROGEN 7 mg/dL (9-20); CALCIUM 7.3 mg/dl (8.6-10.4); GLUCOSE,RANDOM 96 mg/dL (75-110); PHOSPHOROUS 2.7 mg/dL (2.5-4.5)
[2016-06-14 07:02] LABS: MAGNESIUM 1.8 mg/dL (1.6-2.3)
[2016-06-14] MEDS: Potassium & Sodium Phosphate PO SCH (08:29)
[2016-06-14] MEDS: Ferric Sodium Gluconat Complex 62.5 mg/5 ml Vial IVPB SCH (10:49)
--- NOTE | 2016-06-14 10:49 | CP.PCM.PN ---
Subjective - Date & Time of Evaluation Date of Evaluation: 06/14/16 Time of Evaluation: 10:47 - Subjective Subjective: PER GEN SURGERY: 06/13/16 Hgb uptrending from 7.2 to 10.3 this AM - Transfused with two units yesterday Family vacillating about surgery - Pt was scheduled for OR today, but family concerned about risks of surgery - Plan: if pt rebleeds at any point over the weekend or beyond family agrees to surgery, for now, patient's family is opting for continued conservative management Clinically same: Lethargic, sligh tdec in H/H: normotensive, NSR, no arrythmias Denies CP or SOB PE:// - Constitutional Appears: Chronically Ill - Head Exam Head Exam: ATRAUMATIC, NORMAL INSPECTION, NORMOCEPHALIC - Eye Exam Eye Exam: EOMI - ENT Exam ENT Exam: Mucous Membranes Moist - Neck Exam Neck Exam: absent: Tenderness, Thyromegaly - Respiratory Exam Respiratory Exam: Rhonchi, NORMAL BREATHING PATTERN. absent: Rales, Wheezes - Cardiovascular Exam Cardiovascular Exam: REGULAR RHYTHM, +S1, +S2, Murmur ([place]A 3/6 with audible A2) . absent: JVD, +S4 - Extremities Exam Extremities Exam: Normal Inspection. absent: Calf Tenderness - Neurological Exam Neurological Exam: Alert, Awake, Oriented x3 - Psychiatric Exam Psychiatric exam: Depressed - Skin Skin Exam: Normal Color, Warm Objective - Vital Signs/Intake and Output Vital Signs (last 24 hours): Temp Pulse Resp BP Pulse Ox 98 F 71 10 L 110/64 100 06/14/16 04:00 06/14/16 07:09 06/14/16 07:09 06/14/16 07:09 06/14/16 07:09 Intake and Output: 06/14/16 06/14/16 06:59 18:59 Intake Total 355 30 Output Total 435 20 Balance -80 10 - Medications Medications: Current Medications Albumin Human (Albumin Human 25% (12.5 Gm/50 Ml)) 12.5 gm IV Q8 [facility] Last Admin: 06/14/16 06:00 Dose: 12.5 gm Ferric Sodium Gluconate Complex (Ferrlecit) 125 mg IVPB DAILY [facility] Stop: 06/17/16 10:31 Last Admin: 06/13/16 10:36 Dose: 125 mg Fluconazole (Diflucan Iv 100 Mg/50 Ml Ns) 50 mls @ 100 mls/hr IVPB DAILY [facility] Last Admin: 06/13/16 10:36 Dose: 100 mls/hr Latanoprost (Xalatan Opht) 0 ml OU HS [facility] Last Admin: 06/13/16 22:00 Dose: 2.5 ml Pantoprazole Sodium (Protonix Inj) 40 mg IVP DAILY [facility] Last Admin: 06/13/16 10:34 Dose: 40 mg Potassium Phos/Sodium Phos (Neutra-Phos) 1 pkt PO 0800,1200,1700,2200 [facility] Last Admin: 06/14/16 08:29 Dose: 1 pkt Sodium Bicarbonate (Sodium Bicarbonate Tab) 650 mg PO Q6 [facility] Last Admin: 06/14/16 06:00 Dose: 650 mg Tamsulosin HCl (Flomax) 0.4 mg PO DAILY [facility] Last Admin: 06/13/16 10:36 Dose: Not Given - Labs Labs: 06/14/16 06:34 06/14/16 04:00 PT 12.3 SECONDS (9.7-12.2) H 06/09/16 06:45 INR 1.1 06/09/16 06:45 APTT 28 SECONDS (21-34) 06/13/16 06:31 Assessment and Plan - Assessment and Plan (Free Text) Assessment: 85 y/o with 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 s/p FFP and platelet transfusion for refractory anemia and recurrent GI bleed. Off antiplatelets for now. * Risk assesment in progress for possible surgical GI intervention for GI bleed planned if recurrence of GI bleed or worsening of anemia. * There is no futher cardiac work up at this time. We will following along to assist in fluid management and hemodynamics for chronic systolic CHF and moderate . Currently he is hemodynamically stable without volume overload, arrythmias. CADIAC: * Chronic compensated Mod LV systolic dysfunction, mild MR, Mod , distal septal and anterior akinesia due to chronic CAD s/p CABG in 2013. * Hx of known mild-mod LV dysfunction EF 35-40% due to ischemic cardiomyopathy * Euvolemic at present * BP and HR are apporiate * Lower extrem edema is improved: * CKD stage 3A chronic * No AFIB seen on any EKG or documented strips Optimize medical therapy with BB, JERROD-I or ARB, Statin when tolerated and resume ASA or Plavix when safe from GI standpoint. Currently appropriately held for active GI bleed.
[2016-06-14] MEDS: Fluconazole IV 100mg/50 ml NS 50 ML IVPB SCH (10:50)
--- NOTE | 2016-06-14 12:43 | CP.PCM.PN ---
<Indra Hennessy - Last Filed: 06/14/16 12:40> Subjective - Date & Time of Evaluation Date of Evaluation: 06/14/16 Time of Evaluation: 11:10 - Subjective Subjective: PGY4 GI Fellow Progress Note Patient seen and examined bedside this morning. There are no new events to report. Patient continues to have intermittent melanotic stool. 12 system ROS performed and negative except where stated. Objective - Vital Signs/Intake and Output Vital Signs (last 24 hours): Temp Pulse Resp BP Pulse Ox 97.4 F L 71 12 118/73 100 06/14/16 12:00 06/14/16 12:09 06/14/16 12:09 06/14/16 12:09 06/14/16 12:00 Intake and Output: 06/14/16 06/14/16 06:59 18:59 Intake Total 355 650 Output Total 435 240 Balance -80 410 - Medications Medications: Current Medications Albumin Human (Albumin Human 25% (12.5 Gm/50 Ml)) 12.[address] [facility] Last Admin: 06/14/16 06:00 Dose: 12.5 gm Ferric Sodium Gluconate Complex (Ferrlecit) 125 mg IVPB DAILY [facility] Stop: 06/17/16 10:31 Last Admin: 06/14/16 10:49 Dose: 125 mg Fluconazole (Diflucan Iv 100 Mg/50 Ml Ns) 50 mls @ 100 mls/hr IVPB DAILY [facility] Last Admin: 06/14/16 10:50 Dose: 100 mls/hr Latanoprost (Xalatan Opht) 0 ml OU HS [facility] Last Admin: 06/13/16 22:00 Dose: 2.5 ml Pantoprazole Sodium (Protonix Inj) 40 mg IVP DAILY [facility] Last Admin: 06/14/16 10:51 Dose: 40 mg Sodium Bicarbonate (Sodium Bicarbonate Tab) 650 mg PO Q6 [facility] Last Admin: 06/14/16 06:00 Dose: 650 mg Tamsulosin HCl (Flomax) 0.4 mg PO DAILY [facility] Last Admin: 06/14/16 10:52 Dose: 0.4 mg - Labs Labs: 06/14/16 06:34 06/14/16 04:00 PT 12.3 SECONDS (9.7-12.2) H 06/09/16 06:45 INR 1.1 06/09/16 06:45 APTT 28 SECONDS (21-34) 06/13/16 06:31 - Constitutional Appears: Non-toxic, No Acute Distress - Eye Exam Eye Exam: EOMI, PERRL - ENT Exam ENT Exam: Mucous Membranes Dry - Respiratory Exam Respiratory Exam: Clear to Ausculation Bilateral. absent: Rales, Rhonchi, Wheezes - Cardiovascular Exam Cardiovascular Exam: RRR, +S1, +S2 - GI/Abdominal Exam GI & Abdominal Exam: Soft, Normal Bowel Sounds. absent: Distended, Firm, Guarding, Rigid, Tenderness, Organomegaly - Extremities Exam Extremities Exam: Normal Inspection. absent: Pedal Edema - Neurological Exam Neurological Exam: Alert, Awake - Psychiatric Exam Psychiatric exam: Normal Affect, Normal Mood - Skin Skin Exam: Dry, Warm Assessment and Plan - Assessment and Plan (Free Text) Assessment: Patient is an 85yo male with PMHx significant for unknown prior colectomy with ileocolonic anastamosis, anemia, CAD s/p 3 vessel CABG, moderate aortic stenosis , ischemic cardiomyopathy (EF 35-40%), CKD Stage 3, Hypertension, Hyperlipidemia who presented from ID with weakness and hematochezia. -Acute blood loss anemia -Ileocolonic anastamotic ulceration -PUD -CAD -Systolic CHF -CKD -HTN -HLD Plan: -Intermittent melena -Bleeding scan negative which is not indicative of whether or not the patient has persistent low volume, intermittent bleeding from ulcerations - this was explained to family -Patient's family has not committed to a plan moving forward, deciding between surgical or conservative management -We have no further recommendations at this time, have discussed at length with family -Plan per primary and surgical services -No further endoscopic evaluations planned -Will sign off. Please reconsult if needed. Thank you for allowing us to participate in the care of your patient. <Hailey Negrete MD - Last Filed: 06/14/16 20:19> Objective - Vital Signs/Intake and Output Vital Signs (last 24 hours): Temp Pulse Resp BP Pulse Ox 97.4 F L 71 12 118/73 100 06/14/16 12:00 06/14/16 12:09 06/14/16 12:09 06/14/16 12:09 06/14/16 12:00 Intake and Output: 06/14/16 06/15/16 18:59 06:59 Intake Total 650 Output Total 240 Balance 410 - Medications Medications: Current Medications Ferric Sodium Gluconate Complex (Ferrlecit) [address] [facility] Stop: 06/17/16 10:31 Last Admin: 06/14/16 10:49 Dose: 125 mg Fluconazole (Diflucan Iv 100 Mg/50 Ml Ns) 50 mls @ 100 mls/hr IVPB DAILY [facility] Last Admin: 06/14/16 10:50 Dose: 100 mls/hr Lactated Ringer's (Lactated Ringer's) 1,000 mls @ 75 mls/hr IV .[id number] [facility] Last Admin: 06/14/16 16:22 Dose: 75 mls/hr Diltiazem HCl 125 mg/ Sodium (Chloride) 125 mls @ 5 mls/hr IV .Q24H [facility]; 5 MG/ HR PRN Reason: Protocol Latanoprost (Xalatan Opht) [address] [facility] Last Admin: 06/13/16 22:00 Dose: 2.5 ml Pantoprazole Sodium (Protonix Inj) [address] [facility] Last Admin: 06/14/16 10:51 Dose: 40 mg Propofol (Diprivan) 100 mg IV TITR [facility] Sodium Bicarbonate (Sodium Bicarbonate Tab) 650 mg PO Q6 [facility] Last Admin: 06/14/16 12:44 Dose: 650 mg Tamsulosin HCl (Flomax) 0.[address] [facility] Last Admin: 06/14/16 10:52 Dose: 0.4 mg - Labs Labs: 06/14/16 06:34 06/14/16 04:00 PT 12.3 SECONDS (9.7-12.2) H 06/09/16 06:45 INR 1.1 06/09/16 06:45 APTT 28 SECONDS (21-34) 06/13/16 06:31 Attending/Attestation - Attestation I have personally seen and examined this patient.: Yes I have fully participated in the care of the patient.: Yes I have reviewed all pertinent clinical information, including history, physical exam and plan: Yes Notes (Text): 06/14/16 20:11 Patient seen with GI fellow. 85 yr old male with PMHx significant for unknown prior colectomy with ileocolonic anastamosis, anemia, CAD s/p 3 vessel CABG, moderate aortic stenosis, ischemic cardiomyopathy (EF 35-40%), CKD Stage 3, Hypertension, Hyperlipidemia who presented from ID with weakness and hematochezia with chronic bleeding and drop in Hb with numerous EGD/ colonoscopy with hemostatic intervention without success. No more endoscopic intervention planned. Family was explained that surgery is the only option. Rest of plan as per surgical service. -We have no further recommendations at this time, have discussed at length with family -Plan per primary and surgical services -No further endoscopic evaluations planned -Will sign off. Please reconsult if needed. Thank you for allowing us to participate in the care of your p
--- NOTE | 2016-06-14 12:47 | CP.PCM.PN ---
Subjective - Date & Time of Evaluation Date of Evaluation: 06/14/16 Time of Evaluation: 10:15 - Subjective Subjective: General Surgery Dr. Crane Pt S&E @bedside. NAEO. 1 blackish BM per nursing note. pt altered unable to answer questions. Objective - Vital Signs/Intake and Output Vital Signs (last 24 hours): Temp Pulse Resp BP Pulse Ox 97.4 F L 71 12 118/73 100 06/14/16 12:00 06/14/16 12:09 06/14/16 12:09 06/14/16 12:09 06/14/16 12:00 Intake and Output: 06/14/16 06/14/16 06:59 18:59 Intake Total 355 650 Output Total 435 240 Balance -80 410 - Medications Medications: Current Medications Albumin Human (Albumin Human 25% (12.5 Gm/50 Ml)) 12.5 gm IV Q8 [facility] Last Admin: 06/14/16 06:00 Dose: 12.5 gm Ferric Sodium Gluconate Complex (Ferrlecit) 125 mg IVPB DAILY [facility] Stop: 06/17/16 10:31 Last Admin: 06/14/16 10:49 Dose: 125 mg Fluconazole (Diflucan Iv 100 Mg/50 Ml Ns) 50 mls @ 100 mls/hr IVPB DAILY [facility] Last Admin: 06/14/16 10:50 Dose: 100 mls/hr Latanoprost (Xalatan Opht) 0 ml OU HS [facility] Last Admin: 06/13/16 22:00 Dose: 2.5 ml Pantoprazole Sodium (Protonix Inj) 40 mg IVP DAILY [facility] Last Admin: 06/14/16 10:51 Dose: 40 mg Sodium Bicarbonate (Sodium Bicarbonate Tab) 650 mg PO Q6 [facility] Last Admin: 06/14/16 06:00 Dose: 650 mg Tamsulosin HCl (Flomax) 0.4 mg PO DAILY [facility] Last Admin: 06/14/16 10:52 Dose: 0.4 mg - Labs Labs: 06/14/16 06:34 06/14/16 04:00 PT 12.3 SECONDS (9.7-12.2) H 06/09/16 06:45 INR 1.1 06/09/16 06:45 APTT 28 SECONDS (21-34) 06/13/16 06:31 - Constitutional Appears: Toxic, No Acute Distress, Confused - Head Exam Head Exam: NORMAL INSPECTION - Eye Exam Eye Exam: Normal appearance - ENT Exam ENT Exam: Mucous Membranes Moist - Respiratory Exam Respiratory Exam: NORMAL BREATHING PATTERN. absent: Accessory Muscle Use, Respiratory Distress - GI/Abdominal Exam GI & Abdominal Exam: Soft. absent: Distended - Neurological Exam Neurological Exam: Alert, Altered, Awake - Psychiatric Exam Psychiatric exam: Flat Affect - Skin Skin Exam: Dry, Intact, Warm Assessment and Plan - Assessment and Plan (Free Text) Assessment: 85 y/o M w/ lower GI bleed and multiple bouts of melenotic stools - H/H stable - plan for surgery if bleeding should resume - monitor VS - cont medical management Pt discussed w/ Dr. Rosa Maria Arce PGY1
--- NOTE | 2016-06-14 14:39 | CP.CCUPN ---
CCU Subjective - Physician Review Events Since Last Encounter (Free Text): 06/14/16 14:37 patient seen and examined, stable. Delirious mostly during the day, very pleasant. ros difficult, but seem comfortable, no abdominal pain pe: bp 118/73 mmhg, hr 80 bpm, afebrile, rr 10 bpm, O2 97% on RA elderly male sitting in cardiac chair awake, not oriented, confused mostly during day time, more lucid in am, follows simple commands s1, s2 rrr lungs good bilateral air of entry abdomen soft, non tender able to move all extremities a/p: gi bleed: no further bleed, htc stable d/c insulin since blood sugars are tight CCU Objective - Vital Signs / Intake & Output Vital Signs (Last 4 hours): Vital Signs Temp Pulse Resp BP Pulse Ox 06/14/16 12:09 71 12 118/73 06/14/16 12:00 97.4 F L 71 10 L 100 06/14/16 11:37 82 14 06/14/16 11:08 86 16 121/74 06/14/16 11:00 97 H 14 98 Intake and Output (Last 8hrs): Intake & Output 06/13/16 06/14/16 06/14/16 22:59 06:59 14:59 Intake Total 340 205 650 Output Total 265 270 240 Balance 75 -65 410 Weight 167 lb Intake: Intake, IV Amount 50 50 400 Right Medial Port PICC 50 50 400 Oral 290 155 250 Output: Urine 265 270 240 Urethral (Cardenas) 265 270 240 Other: # Bowel Movements 0 1 - Physical Exam Head: Positive for: Atraumatic, Normocephalic Pupils: Positive for: PERRL Extroacular Muscles: Positive for: EOMI Conjunctiva: Positive for: Normal Mouth: Positive for: Moist Mucous Membranes Neck: Positive for: Normal Range of Motion Respiratory/Chest: Positive for: Clear to Auscultation, Good Air Exchange. Negative for: Wheezes Cardiovascular: Positive for: Normal S1, S2 Abdomen: Positive for: Tenderness, Normal Bowel Sounds. Negative for: Peritoneal Signs Back: Positive for: Normal Inspection Upper Extremity: Positive for: Normal Inspection Lower Extremity: Positive for: Normal Inspection Neurological: Positive for: CN II-XII Intact Skin: Positive for: Warm, Dry Psychiatric: Positive for: Lethargic - Medications Active Medications: Active Medications Generic Name Dose Route Start Last Admin Trade Name Freq PRN Reason Stop Dose Admin Albumin Human 12.5 gm 06/09/16 23:45 06/14/16 06:00 Albumin Human 25% (12.5 Gm/50 Ml) IV 12.5 gm Q8 [facility] Administration Ferric Sodium Gluconate Complex 125 mg 06/09/16 10:30 06/14/16 10:49 Ferrlecit IVPB 06/17/16 10:31 125 mg DAILY [facility] Administration Fluconazole 50 mls @ 100 mls/hr 06/04/16 10:00 06/14/16 10:50 Diflucan Iv 100 Mg/50 Ml Ns IVPB 100 mls/hr DAILY [facility] Administration Latanoprost 0 ml 05/22/16 22:00 06/13/16 22:00 Xalatan Opht OU 2.5 ml HS [facility] Administration Pantoprazole Sodium 40 mg 06/11/16 10:00 06/14/16 10:51 Protonix Inj IVP 40 mg DAILY [facility] Administration Sodium Bicarbonate 650 mg 06/10/16 00:00 06/14/16 12:44 Sodium Bicarbonate Tab PO 650 mg Q6 [facility] Administration Tamsulosin HCl 0.4 mg 05/22/16 10:00 06/14/16 10:52 Flomax PO 0.4 mg DAILY [facility] Administration - Patient Studies Lab Studies: Lab Studies 06/14/16 06/14/16 06/14/16 Range/Units 11:37 07:08 06:34 WBC 5.5 (4.8-10.8) K/uL RBC 3.37 L (4.40-5.90) Mil/uL Hgb 9.8 L (12.0-18.0) g/dL Hct 29.8 L (35.0-51.0) % MCV 88.7 (80.0-94.0) fL MCH 29.1 (27.0-31.0) pg MCHC 32.8 L (33.0-37.0) g/dL RDW 15.4 H (11.5-14.5) % Plt Count 129 L (130-400) K/uL MPV 8.4 (7.2-11.7) fL Neut % (Auto) 60.0 (50.0-75.0) % Lymph % (Auto) 30.0 (20.0-40.0) % [place] % (Auto) 8.3 (0.0-10.0) % Eos % (Auto) 1.5 (0.0-4.0) % Baso % (Auto) 0.2 (0.0-2.0) % Neut # 3.3 (1.8-7.0) K/uL Lymph # 1.7 (1.0-4.3) K/uL [place] # 0.5 (0.0-0.8) K/uL Eos # 0.1 (0.0-0.7) K/uL Baso # 0.0 (0.0-0.2) K/uL Sodium (132-148) mmol/L Potassium (3.6-5.2) mmol/L Chloride (98-107) mmol/L Carbon Dioxide (22-30) mmol/L Anion Gap (10-20) BUN (9-20) mg/dL Creatinine (0.8-1.5) MG/DL Est GFR ( Amer) Est GFR (Non-Af Amer) POC Glucose (mg/dL) 132 H 102 (65-110) mg/dL Random Glucose (75-110) mg/dL Calcium (8.6-10.4) mg/dl Phosphorus (2.5-4.5) mg/dL Magnesium (1.6-2.3) mg/dL Total Bilirubin (0.2-1.3) mg/dL AST (17-59) U/L ALT (21-72) U/L Alkaline Phosphatase (38-126) U/L Total Protein (6.3-8.3) g/dL Albumin (3.5-5.0) g/dL Globulin (2.2-3.9) gm/dL Albumin/Globulin Ratio (1.0-2.1) 06/14/16 06/13/16 Range/Units 04:00 16:18 WBC (4.8-10.8) K/uL RBC (4.40-5.90) Mil/uL Hgb (12.0-18.0) g/dL Hct (35.0-51.0) % MCV (80.0-94.0) fL MCH (27.0-31.0) pg MCHC (33.0-37.0) g/dL RDW (11.5-14.5) % Plt Count (130-400) K/uL MPV (7.2-11.7) fL Neut % (Auto) (50.0-75.0) % Lymph % (Auto) (20.0-40.0) % [place] % (Auto) (0.0-10.0) % Eos % (Auto) (0.0-4.0) % Baso % (Auto) (0.0-2.0) % Neut # (1.8-7.0) K/uL Lymph # (1.0-4.3) K/uL [place] # (0.0-0.8) K/uL Eos # (0.0-0.7) K/uL Baso # (0.0-0.2) K/uL Sodium 146 (132-148) mmol/L Potassium 3.8 (3.6-5.2) mmol/L Chloride 109 H (98-107) mmol/L Carbon Dioxide 23 (22-30) mmol/L Anion Gap 18 (10-20) BUN 7 L (9-20) mg/dL Creatinine 1.0 (0.8-1.5) MG/DL Est GFR ( Amer) > 60 Est GFR (Non-Af Amer) > 60 POC Glucose (mg/dL) 126 H (65-110) mg/dL Random Glucose 96 (75-110) mg/dL Calcium 7.3 L (8.6-10.4) mg/dl Phosphorus 2.7 (2.5-4.5) mg/dL Magnesium 1.8 (1.6-2.3) mg/dL Total Bilirubin 0.7 (0.2-1.3) mg/dL AST 14 L (17-59) U/L ALT 20 L (21-72) U/L Alkaline Phosphatase 45 (38-126) U/L Total Protein 5.0 L (6.3-8.3) g/dL Albumin 2.7 L (3.5-5.0) g/dL Globulin 2.3 (2.2-3.9) gm/dL Albumin/Globulin Ratio 1.2 (1.0-2.1) Laboratory Results - last 24 hr 06/13/16 06/14/16 06/14/16 16:18 04:00 06:34 WBC 5.5 RBC 3.37 L Hgb 9.8 L Hct 29.8 L MCV 88.7 MCH 29.1 MCHC 32.8 L RDW 15.4 H Plt Count 129 L MPV 8.4 Neut % (Auto) 60.0 Lymph % (Auto) 30.0 [place] % (Auto) 8.3 Eos % (Auto) 1.5 Baso % (Auto) 0.2 Neut # 3.3 Lymph # 1.7 [place] # 0.5 Eos # 0.1 Baso # 0.0 Sodium 146 Potassium 3.8 Chloride 109 H Carbon Dioxide 23 Anion Gap 18 BUN 7 L Creatinine 1.0 Est GFR ( Amer) > 60 Est GFR (Non-Af Amer) > 60 POC Glucose (mg/dL) 126 H Random Glucose 96 Calcium 7.3 L Phosphorus 2.7 Magnesium 1.8 Total Bilirubin 0.7 AST 14 L ALT 20 L Alkaline Phosphatase 45 Total Protein 5.0 L Albumin 2.7 L Globulin 2.3 Albumin/Globulin Ratio 1.2 06/14/16 06/14/16 07:08 11:37 WBC RBC Hgb Hct MCV MCH MCHC RDW Plt Count MPV Neut % (Auto) Lymph % (Auto) [place] % (Auto) Eos % (Auto) Baso % (Auto) Neut # Lymph # [place] # Eos # Baso # Sodium Potassium Chloride Carbon Dioxide Anion Gap BUN Creatinine Est GFR ( Amer) Est GFR (Non-Af Amer) POC Glucose (mg/dL) 102 132 H Random Glucose Calcium Phosphorus Magnesium Total Bilirubin AST ALT Alkaline Phosphatase Total Protein Albumin Globulin Albumin/Globulin Ratio Fingerstick Blood Sugar Results: 115 Critical Care Progress Note - Nutrition Nutrition: Nutrition Category Date Time Status Consistent Carbohydrate [DIET] Diets 06/13/16 Dinner Active
--- NOTE | 2016-06-14 15:05 | CP.PCM.PN ---
Subjective - Date & Time of Evaluation Date of Evaluation: 06/14/16 Time of Evaluation: 15:20 - Subjective Subjective: clinically same Objective - Vital Signs/Intake and Output Vital Signs (last 24 hours): Temp Pulse Resp BP Pulse Ox 97.4 F L 71 12 118/73 100 06/14/16 12:00 06/14/16 12:09 06/14/16 12:09 06/14/16 12:09 06/14/16 12:00 Intake and Output: 06/14/16 06/14/16 06:59 18:59 Intake Total 355 650 Output Total 435 240 Balance -80 410 - Medications Medications: Current Medications Albumin Human (Albumin Human 25% (12.5 Gm/50 Ml)) 12.5 gm IV Q8 [facility] Last Admin: 06/14/16 06:00 Dose: 12.5 gm Ferric Sodium Gluconate Complex (Ferrlecit) 125 mg IVPB DAILY [facility] Stop: 06/17/16 10:31 Last Admin: 06/14/16 10:49 Dose: 125 mg Fluconazole (Diflucan Iv 100 Mg/50 Ml Ns) 50 mls @ 100 mls/hr IVPB DAILY [facility] Last Admin: 06/14/16 10:50 Dose: 100 mls/hr Latanoprost (Xalatan Opht) 0 ml OU HS [facility] Last Admin: 06/13/16 22:00 Dose: 2.5 ml Pantoprazole Sodium (Protonix Inj) 40 mg IVP DAILY [facility] Last Admin: 06/14/16 10:51 Dose: 40 mg Sodium Bicarbonate (Sodium Bicarbonate Tab) 650 mg PO Q6 [facility] Last Admin: 06/14/16 12:44 Dose: 650 mg Tamsulosin HCl (Flomax) 0.4 mg PO DAILY [facility] Last Admin: 06/14/16 10:52 Dose: 0.4 mg - Labs Labs: 06/14/16 06:34 06/14/16 04:00 PT 12.3 SECONDS (9.7-12.2) H 06/09/16 06:45 INR 1.1 06/09/16 06:45 APTT 28 SECONDS (21-34) 06/13/16 06:31 - Constitutional Appears: Well - Head Exam Head Exam: ATRAUMATIC, NORMAL INSPECTION, NORMOCEPHALIC - Eye Exam Eye Exam: EOMI, Normal appearance, PERRL Pupil Exam: NORMAL ACCOMODATION, PERRL - ENT Exam ENT Exam: Mucous Membranes Moist, Normal Exam - Neck Exam Neck Exam: Full ROM, Normal Inspection. absent: Lymphadenopathy - Respiratory Exam Respiratory Exam: Decreased Breath Sounds - Cardiovascular Exam Cardiovascular Exam: REGULAR RHYTHM, +S1, +S2 - GI/Abdominal Exam GI & Abdominal Exam: Soft, Diminished Bowel Sounds - Rectal Exam Rectal Exam: Deferred Assessment and Plan (1) Acute renal failure Status: Acute (2) Anemia Status: Acute (3) BPH (benign prostatic hyperplasia) Status: Acute (4) Bilateral edema of lower extremity Status: Acute (5) DVT prophylaxis Status: Acute (6) Dry gangrene Status: Acute (7) Gastrointestinal hemorrhage Status: Acute (8) Hypochromic microcytic anemia Status: Acute (9) Hypovolemic shock Status: Acute (10) Memory difficulty Status: Acute (11) Paresthesia of both lower extremities Status: Acute (12) Pneumonia Status: Acute (13) CHF (congestive heart failure) Status: Chronic (14) Diabetes mellitus Status: Chronic - Assessment and Plan (Free Text) Plan: f/u with GI f/u with ID f/u with airplane dispatch clerk f/u with pulmology continue monitor H/H plan for Sx if pt. rebleed protonix Novolog
[2016-06-14] MEDS: Lactated Ringer's 1,000 ML IV SCH (16:22)
[2016-06-14] MEDS ORDERED: Midazolam 2 MG/2 ML VIAL IVP ONE (17:52)
[2016-06-14] MEDS ORDERED: Propofol 10 mg/ml Inj (100 ml) IV SCH (18:00)
[2016-06-14] MEDS ORDERED: Propofol 10 mg/ml Inj (20 ML) IV ONE ×2 (18:05→18:50)
[2016-06-14] MEDS ORDERED: Propofol 10 mg/ml Inj (20 ML) ONE ×2 (18:07→18:50)
[2016-06-14] MEDS ORDERED: Midazolam 2 MG/2 ML VIAL ONE (18:07)
[2016-06-14] MEDS ORDERED: CALCIUM CHLORIDE 100 MG/ML VIAL IV ONE (18:30)
[2016-06-14] MEDS ORDERED: Calcium Gluconate 4.65 mEq/10 ml Inj ONE (18:30)
[2016-06-14] MEDS ORDERED: Sodium Bicarbonate (8.4%) 50 Meq Syringe ONE (18:30)
[2016-06-14] MEDS ORDERED: Propofol 10 mg/ml Inj (20 ML) IVP ONE (18:50)
[2016-06-14] MEDS ORDERED: Iodixanol 320 MG/ML 100 ML BOTTLE IV ONE (18:54)
[2016-06-14] MEDS: Propofol 10 mg/ml Inj (100 ml) IV SCH (19:30)
--- NOTE | 2016-06-14 19:53 | CT ---
EXAM: CT Abdomen and Pelvis With Intravenous Contrast CLINICAL HISTORY: 85 years old, male; Condition or disease; Other: Gi bleed; Additional info: Upper and lower gi bleed TECHNIQUE: Axial computed tomography images of the abdomen and pelvis with intravenous contrast during the arterial phase of enhancement. This CT exam was performed using one or more of the following dose reduction techniques: automated exposure control, adjustment of the mA and/or kV according to patient size, and/or use of iterative reconstruction technique. Coronal and sagittal reformatted images were created and reviewed. CONTRAST: 100 mL of [id number] administered intravenously. EXAM DATE/TIME: 06/14/2016 6:36 PM COMPARISON: CT - ANGIO ABDOMEN PELVIS W/CONT 06/12/2016 9:58:38 PM FINDINGS: Lower thorax: Heart size is normal. There are coronary calcifications. There is distal esophageal wall thickening. There are bilateral pleural effusions. There is bibasilar airspace disease. VASCULATURE: Aorta: Aorta is ectatic. Air calcifications in the aortic wall. There is noncalcified plaque in the aortic wall. Celiac trunk and mesenteric arteries: Celiac artery and its major branches are well-perfused. Superior mesenteric artery and major branches are unremarkable. There is perfusion of the inferior mesenteric artery Renal arteries: There is perfusion of both renal arteries. Iliac arteries: see above Other arteries: ABDOMEN: Liver: unremarkable No mass. Gallbladder and bile ducts: Gallbladder is absent. Common bile duct is unremarkable. Pancreas: Pancreas is mildly atrophic. Spleen: unremarkable Adrenals: There is bilateral adrenal thickening. Kidneys and ureters: Kidneys and ureters are unremarkable. Stomach and bowel: There is radiopaque material layering in the dependent portion of the gastric fundus. There is mild prominence of vessels along the greater curvature of the fundus. There is radiopaque material in the gastric antrum and duodenum. Small bowel is mildly distended with fluid. No discrete active bleeding site is seen in the small bowel. There is an ileocolic anastomosis in the right upper quadrant. There are prominent vessels adjacent at the level of the anastomosis. There is a small focus of increased activity in the hepatic flexure, image 35 series 2, image 54 series 601. There is a small focus of increased activity in the distal descending colon, image 60 series 2.. There is fluid of varying attenuation throughout the colon Appendix: unremarkable PELVIS: Bladder: Bladder is empty. There is a Cardenas catheter. Reproductive: Seminal vesicles and prostate are unremarkable. ABDOMEN and PELVIS: Intraperitoneal space: There is a small amount of free fluid in the pelvis. There is no free air. Bones/joints: There are postsurgical changes of median sternotomy. There are degenerative changes in the osseus structures. Soft tissues: There is anasarca. Lymph nodes: There is no pathologic adenopathy. Tubes, lines and devices: A nasogastric tube is in place. IMPRESSION: Radiopaque material in the dependent gastric fundus, antrum and duodenum suggesting blood, mildly prominent vessels along the greater curvature of the gastric fundus may be a bleeding source; possible bleeding site in the hepatic flexure just distal to the ileocolic anastomosis; possible bleeding site in the distal descending colon Additional findings as described above.
[2016-06-14 20:37] LABS: HEMATOCRIT 35.7 % (35.0-51.0); MEAN CELL VOLUME 89.9 fL (80.0-94.0); MEAN CORPUSCULAR HEMOGLOBIN 30.2 pg (27.0-31.0); MEAN CORPUSCULAR HGB CONC 33.6 g/dL (33.0-37.0); MEAN PLATELET VOLUME 8.4 fL (7.2-11.7); RED CELL DISTRIBUTION WIDTH 14.9 % (11.5-14.5); WHITE BLOOD COUNT 6.6 K/uL (4.8-10.8)
[2016-06-14 20:44] LABS: CHLORIDE 109 mmol/L (98-107); POTASSIUM 3.8 mmol/L (3.6-5.2); SODIUM 141 mmol/L (132-148)
[2016-06-14 20:47] LABS: BLOOD UREA NITROGEN 8 mg/dL (9-20); CARBON DIOXIDE 19 mmol/L (22-30); GFR AFRICAN-AMERICAN > 60
[2016-06-14 20:48] LABS: CALCIUM 8.3 mg/dl (8.6-10.4); GLUCOSE,RANDOM 224 mg/dL (75-110); MAGNESIUM 2.1 mg/dL (1.6-2.3)
[2016-06-14 20:49] LABS: INR 1.2
--- NOTE | 2016-06-14 21:40 | PCM.SURG1 ---
Surgeon's Initial Post Op Note - Surgeon's Notes Surgeon: Neto Romero MD Parts Order And Stock Clerk: NONE Type of Anesthesia: Local Pre-Operative Diagnosis: GI Bleed Operative Findings: CTA reviewed and GI bleed noted at surgical kevan. Mesenteric angiogram showed no active bleed. Based on previous CTA, branches of the SMA supplying region of surgical kevan were embolized with microcoils. Post-Operative Diagnosis: GI Bleed Operation Performed: Mesenteric angiogram and embolization of SMA branches supplying right colon near surgical kevan. Specimen/Specimens Removed: NONE Estimated Blood Loss: EBL {In ML}: 10 Blood Products Given: N/A Drains Used: No Drains Post-Op Condition: Poor Date of Surgery/Procedure: 06/14/16 Time of Surgery/Procedure: 09:35
[2016-06-14] MEDS: Latanoprost 2.5 ml Opht Soln OU SCH (23:00)
[2016-06-14 23:50] LABS: CHLORIDE 104 mmol/L (98-107); POTASSIUM 3.7 mmol/L (3.6-5.2); SODIUM 137 mmol/L (132-148)
[2016-06-14 23:52] LABS: BILIRUBIN,TOTAL 2.3 mg/dL (0.2-1.3); GFR AFRICAN-AMERICAN > 60
[2016-06-14 23:53] LABS: ALB/GLOB RATIO 1.2 (1.0-2.1); ALKALINE PHOSPHATASE 38 U/L (38-126); ALT/SGPT 24 U/L (21-72); AST/SGOT 22 U/L (17-59); BLOOD UREA NITROGEN 10 mg/dL (9-20); CARBON DIOXIDE 19 mmol/L (22-30); GLUCOSE,RANDOM 354 mg/dL (75-110); PHOSPHOROUS 2.5 mg/dL (2.5-4.5)
[2016-06-14 23:54] LABS: CALCIUM 7.8 mg/dl (8.6-10.4)
[2016-06-15] MEDS: Latanoprost 2.5 ml Opht Soln OU SCH ×2 (00:24→23:00)
[2016-06-15 00:47] LABS: BASO % 0.1 % (0.0-2.0); EOS % 0.1 % (0.0-4.0); HEMATOCRIT 35.7 % (35.0-51.0); LYMPH # 0.5 K/uL (1.0-4.3); MEAN CELL VOLUME 88.8 fL (80.0-94.0); MEAN CORPUSCULAR HEMOGLOBIN 29.9 pg (27.0-31.0); MEAN CORPUSCULAR HGB CONC 33.7 g/dL (33.0-37.0); MEAN PLATELET VOLUME 8.7 fL (7.2-11.7); MONO # 0.1 K/uL (0.0-0.8); MONO % 1.7 % (0.0-10.0); NRBC % 0.1 % (0.0-2.0); RED CELL DISTRIBUTION WIDTH 14.6 % (11.5-14.5); WHITE BLOOD COUNT 5.1 K/uL (4.8-10.8)
[2016-06-15] MEDS: Propofol 10 mg/ml Inj (100 ml) IV SCH (01:38)
[2016-06-15] MEDS ORDERED: Sodium Chloride 0.9% 1,000 ML IV ONE ×2 (01:53→01:54)
[2016-06-15 04:28] LABS: ABG MECHANICAL RATE 14; ATERIAL BLOOD GAS PEEP 5; DRAW SITE ALINE
[2016-06-15] MEDS ORDERED: DOPamine 400mg/250ml D5W 250 ML IV PRN (04:46)
[2016-06-15] MEDS: Lactated Ringer's 1,000 ML IV SCH ×2 (05:19→11:25)
[2016-06-15 06:59] LABS: CHLORIDE 111 mmol/L (98-107)
[2016-06-15 07:00] LABS: SODIUM 147 mmol/L (132-148)
[2016-06-15 07:02] LABS: GFR AFRICAN-AMERICAN > 60
[2016-06-15 07:03] LABS: ALKALINE PHOSPHATASE 37 U/L (38-126); ALT/SGPT 23 U/L (21-72); AST/SGOT 19 U/L (17-59); BILIRUBIN,TOTAL 1.7 mg/dL (0.2-1.3); BLOOD UREA NITROGEN 10 mg/dL (9-20); CALCIUM 7.2 mg/dl (8.6-10.4); CARBON DIOXIDE 22 mmol/L (22-30); GLUCOSE,RANDOM 132 mg/dL (75-110); PHOSPHOROUS 1.4 mg/dL (2.5-4.5); TOTAL PROTEIN 4.2 g/dL (6.3-8.3)
[2016-06-15 07:04] LABS: MAGNESIUM 1.7 mg/dL (1.6-2.3)
--- NOTE | 2016-06-15 07:56 | RAD ---
HISTORY: intubated COMPARISON: 06/06/2016 FINDINGS: LUNGS: Endotracheal tube somewhat low lying approximately 1.3 centimeters above the reymundo. NG tube extending toward the stomach with the distal tip not well visualized. Other lines and tubes in stable position. Diffuse increased interstitial lung markings. Right hilar prominence. Left basilar airspace opacity with small left pleural effusion. Upper lobe granulomatous changes. PLEURA: As above. CARDIOVASCULAR: Tortuous aorta. Mild cardiomegaly. OSSEOUS STRUCTURES: Degenerative changes in the spine and shoulders. VISUALIZED UPPER ABDOMEN: Tubing projects over the upper abdomen. OTHER FINDINGS: None. IMPRESSION: Endotracheal tube somewhat low lying approximately 1.3 centimeters above the reymundo. NG tube extending toward the stomach with the distal tip not well visualized. Other lines and tubes in stable position. Diffuse increased interstitial lung markings. Right hilar prominence. Left basilar airspace opacity with small left pleural effusion. Upper lobe granulomatous changes.
--- NOTE | 2016-06-15 08:01 | RAD ---
HISTORY: Intubated COMPARISON: 06/14/2016 FINDINGS: LUNGS: Lines and tubes in stable position. Diffuse confluent bilateral airspace opacities most prominent in the right hilar and lower lung zones as well as the left hilar and lower zones. Suggestion of a small left pleural effusion. Biapical pleural thickening with upper lobe granulomatous changes. PLEURA: As above. CARDIOVASCULAR: Status post median sternotomy and CABG. Cardiomegaly. OSSEOUS STRUCTURES: Degenerative changes in the spine and shoulders. VISUALIZED UPPER ABDOMEN: Normal. OTHER FINDINGS: None. IMPRESSION: Lines and tubes in stable position. Diffuse confluent bilateral airspace opacities most prominent in the right hilar and lower lung zones as well as the left hilar and lower zones. Suggestion of a small left pleural effusion. Biapical pleural thickening with upper lobe granulomatous changes.
[2016-06-15] MEDS: Fluconazole IV 100mg/50 ml NS 50 ML IVPB SCH (09:31)
[2016-06-15] MEDS: Ferric Sodium Gluconat Complex 62.5 mg/5 ml Vial IVPB SCH (09:32)
[2016-06-15] MEDS: Potassium Chloride 20 mEq 100 ML IVPB SCH ×2 (10:39→12:06)
[2016-06-15] MEDS ORDERED: Potassium Phosphate 30 MMOLE in Sodium Chloride 0.9% 250 ML IV ONE ×2 (11:00→16:00)
--- NOTE | 2016-06-15 13:05 | CP.PCM.PN ---
Subjective - Date & Time of Evaluation Date of Evaluation: 06/15/16 Time of Evaluation: 13:02 - Subjective Subjective: Events noted: Acute hypovolumic shock last night requiring CPR/SHOCK for VT, intubation for airway protection, emergent blood products and pressor support on max vaso and levophed S/P urgent:Near R. Colon: branches of the SMA supplying region of surgical kevan were embolized with microcoils. Remains: intubated and sedated; FIO2 60%, NSR, PACS AFIB reported during short course of CPR tele strips reviewed by me suggests same however there is baseline artifact. Objective - Vital Signs/Intake and Output Vital Signs (last 24 hours): Temp Pulse Resp BP Pulse Ox 99.3 F 104 H 19 98/45 L 97 06/15/16 09:00 06/15/16 12:13 06/15/16 12:13 06/15/16 12:13 06/15/16 12:13 Intake and Output: 06/15/16 06/15/16 06:59 18:59 Intake Total 4944.3 1007.1 Output Total 840 600 Balance 4104.3 407.1 - Medications Medications: Current Medications Ferric Sodium Gluconate Complex (Ferrlecit) 125 mg IVPB DAILY [facility] Stop: 06/17/16 10:31 Last Admin: 06/15/16 09:32 Dose: 125 mg Fluconazole (Diflucan Iv 100 Mg/50 Ml Ns) 50 mls @ 100 mls/hr IVPB DAILY [facility] Last Admin: 06/15/16 09:31 Dose: 100 mls/hr Diltiazem HCl 125 mg/ Sodium (Chloride) 125 mls @ 5 mls/hr IV .Q24H [facility]; 5 MG/ HR PRN Reason: Protocol Last Admin: 06/14/16 20:50 Dose: Not Given Lactated Ringer's (Lactated Ringer's) 1,000 mls @ 50 mls/hr IV .Q20H [facility] Last Admin: 06/15/16 11:25 Dose: 50 mls/hr Potassium Phosphate 30 mmole/ (Sodium Chloride) 260 mls @ 63 mls/hr IV ONCE ONE Stop: 06/15/16 15:07 Last Admin: 06/15/16 12:57 Dose: 63 mls/hr Propofol (Diprivan) 100 mls @ 2.443 mls/hr IV .Q24H PRN; Protocol; 5 MCG/KG/MIN PRN Reason: TITRATE PER MD ORDER Last Admin: 06/15/16 13:00 Dose: 8.1 mls/hr Vasopressin 40 units/ Sodium (Chloride) 40 mls @ 2.4 mls/hr IV .[id number] [facility] PRN Reason: 0.04 UNITS/MIN Last Admin: 06/15/16 11:24 Dose: 2.4 mls/hr Norepinephrine Bitartrate 16 (mg/ Sodium Chloride) 266 mls @ 3.99 mls/hr IV .Q24H PRN; Protocol; 4 MCG/MIN PRN Reason: TITRATE PER MD ORDER Last Admin: 06/15/16 11:23 Dose: 19.95 mls/hr Latanoprost (Xalatan Opht) 0 ml OU HS [facility] Last Admin: 06/14/16 23:00 Dose: 2.5 ml Pantoprazole Sodium (Protonix Inj) 40 mg IVP DAILY [facility] Last Admin: 06/15/16 09:33 Dose: 40 mg Sodium Bicarbonate (Sodium Bicarbonate Tab) 650 mg PO Q6 [facility] Last Admin: 06/15/16 05:18 Dose: 650 mg - Labs Labs: 06/15/16 00:44 06/15/16 06:36 PT 13.4 SECONDS (9.7-12.2) H 06/14/16 20:34 INR 1.2 06/14/16 20:34 APTT 45 SECONDS (21-34) H D 06/14/16 20:34 - Constitutional Appears: In Acute Distress (intubated and sedated), Chronically Ill - Eye Exam Eye Exam: absent: Scleral icterus - Neck Exam Neck Exam: absent: Thyromegaly - Respiratory Exam Respiratory Exam: Rhonchi (scattered) - Cardiovascular Exam Cardiovascular Exam: Murmur (unchanged TAWNYA with audible A2, RUSB) - Extremities Exam Extremities Exam: absent: Calf Tenderness, Pedal Edema - Neurological Exam Neurological Exam: Altered - Skin Skin Exam: Normal Color Assessment and Plan - Assessment and Plan (Free Text) Assessment: Recurrent GI bleed and urgent embolization of SMA near R. colon done) S/P CPR for acute hyvolumic shock: VT shock x1; blood products, pressors and intubation P. 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 s/p FFP and platelet transfusion for refractory anemia and recurrent GI bleed. Off antiplatelets for now. * Risk assesment in progress for possible surgical GI intervention for GI bleed planned if recurrence of GI bleed or worsening of anemia. * There is no futher cardiac work up at this time. We will following along to assist in fluid management and hemodynamics for chronic systolic CHF and moderate . Currently he is hemodynamically stable without volume overload, arrythmias. CADIAC: * Chronic compensated Mod LV systolic dysfunction, mild MR, Mod , distal septal and anterior akinesia due to chronic CAD s/p CABG in 2012. * Hx of known mild-mod LV dysfunction EF 35-40% due to ischemic cardiomyopathy * Euvolemic at present * BP and HR are apporiate * Lower extrem edema is improved: * CKD stage 3A chronic * No AFIB seen on any EKG or documented strips Suggest IV amiodarone if recurrence of AFIB or ventricular arrythmia Cont vent and pressor support May need urgent colectomy if recrrence of bleed Long discussion with family who was at bedside regards clinical course.
[2016-06-15 14:46] LABS: HEMATOCRIT 33.7 % (35.0-51.0); MEAN CELL VOLUME 88.3 fL (80.0-94.0); MEAN CORPUSCULAR HEMOGLOBIN 29.7 pg (27.0-31.0); MEAN CORPUSCULAR HGB CONC 33.6 g/dL (33.0-37.0); MEAN PLATELET VOLUME 9.4 fL (7.2-11.7)
[2016-06-15 14:59] LABS: WHITE BLOOD COUNT 22.7 K/uL (4.8-10.8)
--- NOTE | 2016-06-15 15:32 | CP.PCM.PN ---
Subjective - Date & Time of Evaluation Date of Evaluation: 06/15/16 Time of Evaluation: 08:00 - Subjective Subjective: GENERAL SURGERY PROGRESS NOTE FOR DR. MOREL Patient seen and examined at bedside in the ICU. Yesterday, patient had hematochezia and hematemesis. He was given 4 PRBC, 2 FFP, and 1 platelets. 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 Romero. Patient sedated on propofol and remains intubated. He is on FiO2 of 60% and PEEP 5. Currently on norepinephrine 25mcg. Per nurse, he has not had any more bloody BMs since his angio last night. Objective - Vital Signs/Intake and Output Vital Signs (last 24 hours): Temp Pulse Resp BP Pulse Ox 99.4 F 89 21 70/38 L 93 L 06/15/16 13:00 06/15/16 14:41 06/15/16 14:41 06/15/16 14:41 06/15/16 14:41 Intake and Output: 06/15/16 06/15/16 06:59 18:59 Intake Total 4944.3 1269.3 Output Total 840 740 Balance 4104.3 529.3 - Medications Medications: Current Medications Ferric Sodium Gluconate Complex (Ferrlecit) 125 mg IVPB DAILY LASHA Stop: 06/17/16 10:31 Last Admin: 06/15/16 09:32 Dose: 125 mg Fluconazole (Diflucan Iv 100 Mg/50 Ml Ns) 50 mls @ 100 mls/hr IVPB DAILY LASHA Last Admin: 06/15/16 09:31 Dose: 100 mls/hr Diltiazem HCl 125 mg/ Sodium (Chloride) 125 mls @ 5 mls/hr IV .Q24H LASHA; 5 MG/ HR PRN Reason: Protocol Last Admin: 06/14/16 20:50 Dose: Not Given Lactated Ringer's (Lactated Ringer's) 1,000 mls @ 50 mls/hr IV .Q20H LASHA Last Admin: 06/15/16 11:25 Dose: 50 mls/hr Propofol (Diprivan) 100 mls @ 2.443 mls/hr IV .Q24H PRN; Protocol; 5 MCG/KG/MIN PRN Reason: TITRATE PER MD ORDER Last Admin: 06/15/16 13:00 Dose: 8.1 mls/hr Vasopressin 40 units/ Sodium (Chloride) 40 mls @ 2.4 mls/hr IV .[id number] LASHA PRN Reason: 0.04 UNITS/MIN Last Admin: 06/15/16 11:24 Dose: 2.4 mls/hr Norepinephrine Bitartrate 16 (mg/ Sodium Chloride) 266 mls @ 3.99 mls/hr IV .Q24H PRN; Protocol; 4 MCG/MIN PRN Reason: TITRATE PER MD ORDER Last Titration: 06/15/16 13:11 Dose: 18 mcg/min Latanoprost (Xalatan Opht) 0 ml OU HS LASHA Last Admin: 06/14/16 23:00 Dose: 2.5 ml Pantoprazole Sodium (Protonix Inj) 40 mg IVP DAILY LASHA Last Admin: 06/15/16 09:33 Dose: 40 mg Sodium Bicarbonate (Sodium Bicarbonate Tab) 650 mg PO Q6 LASHA Last Admin: 06/15/16 05:18 Dose: 650 mg - Labs Labs: 06/15/16 14:44 06/15/16 06:36 PT 13.4 SECONDS (9.7-12.2) H 06/14/16 20:34 INR 1.2 06/14/16 20:34 APTT 45 SECONDS (21-34) H D 06/14/16 20:34 - Constitutional Appears: Toxic, Chronically Ill - ENT Exam Additional comments: OG tube in place w/ 400cc output since placement - Respiratory Exam Additional comments: on mechanical ventilation via ETT - Cardiovascular Exam Cardiovascular Exam: Tachycardia - GI/Abdominal Exam GI & Abdominal Exam: Soft. absent: Distended - Neurological Exam Neurological Exam: absent: Awake (sedated w/ propofol) - Skin Skin Exam: Normal Color, Warm Assessment and Plan - Assessment and Plan (Free Text) Assessment: 85yo M with lower GI bleed s/p mesenteric angiogram with embolization of SMA branches supplying right colon by IR yesterday - Afebrile, mild tachycardia, BP 90-100 systolic on pressors - Hemoglobin 11.3 today, stable - No more bleeding s/p angio per nurse - Possible OR if patient starts to bleed again - Discussed plan with Dr. Rosa Maria Pedroza PGY-2
--- NOTE | 2016-06-15 15:38 | CP.PCM.HP ---
Present on Admission - Present on Admission Any Indicators Present on Admission: No Past Patient History - Tetanus Immunizations Tetanus Immunization: Unknown - Past Medical History & Family History Past Medical History?: Yes - Past Social History Smoking Status: Former Smoker Alcohol: None - CARDIAC Hx Cardiac Disorders: Yes Hx Congestive Heart Failure: Yes Hx Hypertension: Yes - PULMONARY Hx Respiratory Disorders: Yes Hx Pneumonia: Yes - NEUROLOGICAL HX Cerebrovascular Accident: Yes - HEENT Hx HEENT Problems: Yes Hx Glaucoma: Yes - RENAL Hx Chronic Kidney Disease: Yes Other/Comment: ckd - ENDOCRINE/METABOLIC Hx Diabetes Mellitus Type 2: Yes - HEMATOLOGICAL/ONCOLOGICAL Hx Blood Disorders: Yes Hx Anemia: Yes - INTEGUMENTARY Hx Dermatological Problems: No - MUSCULOSKELETAL/RHEUMATOLOGICAL Hx Musculoskeletal Disorders: Yes Hx Falls: Yes - GASTROINTESTINAL Hx Gastrointestinal Disorders: No - GENITOURINARY/GYNECOLOGICAL Hx Genitourinary Disorders: No - PSYCHIATRIC Hx Psychophysiologic Disorder: No Hx Substance Use: No - SURGICAL HISTORY Hx Surgeries: Yes Hx Appendectomy: Yes (2014) Hx Coronary Artery Bypass Graft: Yes (2012) - ANESTHESIA Hx Anesthesia: Yes Hx Anesthesia Reactions: No Hx Malignant Hyperthermia: No Has any member of the family had a problem w/ anesthesia?: No Meds Allergies/Adverse Reactions: Allergies Allergy/AdvReac Type Severity Reaction Status Date / Time No Known Allergies Allergy Unverified 05/21/16 23:21 Physical Exam - Constitutional Appears: Well - Head Exam Head Exam: ATRAUMATIC, NORMAL INSPECTION, NORMOCEPHALIC - Eye Exam Eye Exam: EOMI, Normal appearance, PERRL Pupil Exam: NORMAL ACCOMODATION, PERRL - ENT Exam ENT Exam: Mucous Membranes Moist, Normal Exam - Neck Exam Neck exam: Positive for: Normal Inspection - Respiratory Exam Respiratory Exam: Decreased Breath Sounds - Cardiovascular Exam Cardiovascular Exam: REGULAR RHYTHM, +S1, +S2 - GI/Abdominal Exam GI & Abdominal Exam: Diminished Bowel Sounds, Soft - Rectal Exam Rectal Exam: Deferred Results - Vital Signs Recent Vital Signs: Last Vital Signs Temp 99.4 F 06/15/16 13:00 Pulse 89 06/15/16 14:41 Resp 21 06/15/16 14:41 BP 70/38 L 06/15/16 14:41 Pulse Ox 93 L 06/15/16 14:41 - Labs Result Diagrams: 06/19/16 06:41 06/19/16 06:41 Labs: Laboratory Results - last 24 hr 06/12/16 06/14/16 06/14/16 12:19 16:16 18:09 WBC RBC Hgb Hct MCV MCH MCHC RDW Plt Count MPV Neut % (Auto) Lymph % (Auto) Dodge % (Auto) Eos % (Auto) Baso % (Auto) Neut # Lymph # Dodge # Eos # Baso # Differential Comment PT INR APTT Puncture Site pCO2 pO2 HCO3 ABG pH ABG Total CO2 ABG O2 Saturation ABG Base Excess Alek Test ABG Potassium A-a O2 Difference Respiratory Index Glucose Lactate Mechanical Rate FiO2 Tidal Volume PEEP Sodium Potassium Chloride Carbon Dioxide Anion Gap BUN Creatinine Est GFR ( Amer) Est GFR (Non-Af Amer) POC Glucose (mg/dL) 154 H Random Glucose Lactic Acid Calcium Phosphorus Magnesium Total Bilirubin AST ALT Alkaline Phosphatase Total Protein Albumin Globulin Albumin/Globulin Ratio Arterial Blood Potassium Blood Type O POSITIVE O POSITIVE Antibody Screen Negative Negative 06/14/16 06/14/16 06/14/16 19:57 20:34 23:36 WBC 6.6 RBC 3.97 L Hgb 12.0 D Hct 35.7 MCV 89.9 MCH 30.2 MCHC 33.6 RDW 14.9 H Plt Count 88 L D MPV 8.4 Neut % (Auto) Lymph % (Auto) Dodge % (Auto) Eos % (Auto) Baso % (Auto) Neut # Lymph # Dodge # Eos # Baso # Differential Comment PT 13.4 H INR 1.2 APTT 45 H D Puncture Site pCO2 pO2 HCO3 ABG pH ABG Total CO2 ABG O2 Saturation ABG Base Excess Alek Test ABG Potassium A-a O2 Difference Respiratory Index Glucose Lactate Mechanical Rate FiO2 Tidal Volume PEEP Sodium 141 137 Potassium 3.8 3.7 Chloride 109 H 104 Carbon Dioxide 19 L 19 L Anion Gap 17 18 BUN 8 L 10 Creatinine 1.0 0.9 Est GFR ( Amer) > 60 > 60 Est GFR (Non-Af Amer) > 60 > 60 POC Glucose (mg/dL) 242 H Random Glucose 224 H 354 H Lactic Acid Calcium 8.3 L 7.8 L Phosphorus 2.5 Magnesium 2.1 2.0 Total Bilirubin 2.3 H AST 22 ALT 24 Alkaline Phosphatase 38 Total Protein 5.0 L Albumin 2.7 L Globulin 2.3 Albumin/Globulin Ratio 1.2 Arterial Blood Potassium Blood Type Antibody Screen 0406/15/16 06/15/16 00:05 00:44 04:20 WBC 5.1 RBC 4.02 L Hgb 12.0 Hct 35.7 MCV 88.8 MCH 29.9 MCHC 33.7 RDW 14.6 H Plt Count 100 L MPV 8.7 Neut % (Auto) 88.1 H Lymph % (Auto) 10.0 L Dodge % (Auto) 1.7 Eos % (Auto) 0.1 Baso % (Auto) 0.1 Neut # 4.5 Lymph # 0.5 L Dodge # 0.1 Eos # 0.0 Baso # 0.0 Differential Comment PT INR APTT Puncture Site Landy pCO2 30 L pO2 60 L HCO3 21.2 ABG pH 7.41 ABG Total CO2 19.9 L ABG O2 Saturation 96.2 ABG Base Excess -4.5 L Alek Test Na ABG Potassium 2.6 L A-a O2 Difference 330.0 Respiratory Index 5.5 Glucose 147 H Lactate 3.2 H Mechanical Rate 14 FiO2 60.0 Tidal Volume 500 PEEP 5 Sodium 146.0 Potassium Chloride 120.0 H Carbon Dioxide Anion Gap BUN Creatinine Est GFR ( Amer) Est GFR (Non-Af Amer) POC Glucose (mg/dL) 204 H Random Glucose Lactic Acid Calcium Phosphorus Magnesium Total Bilirubin AST ALT Alkaline Phosphatase Total Protein Albumin Globulin Albumin/Globulin Ratio Arterial Blood Potassium 2.6 L Blood Type Antibody Screen 06/15/16 06/15/16 06/15/16 06:24 06:36 06:55 WBC RBC Hgb Hct MCV MCH MCHC RDW Plt Count MPV Neut % (Auto) Lymph % (Auto) Dodge % (Auto) Eos % (Auto) Baso % (Auto) Neut # Lymph # Dodge # Eos # Baso # Differential Comment PT INR APTT Puncture Site pCO2 pO2 HCO3 ABG pH ABG Total CO2 ABG O2 Saturation ABG Base Excess Alek Test ABG Potassium A-a O2 Difference Respiratory Index Glucose Lactate Mechanical Rate FiO2 Tidal Volume PEEP Sodium 147 Potassium 3.0 L Chloride 111 H Carbon Dioxide 22 Anion Gap 17 BUN 10 Creatinine 0.9 Est GFR ( Amer) > 60 Est GFR (Non-Af Amer) > 60 POC Glucose (mg/dL) 162 H Random Glucose 132 H Lactic Acid 2.5 H Calcium 7.2 L Phosphorus 1.4 L Magnesium 1.7 Total Bilirubin 1.7 H AST 19 ALT 23 Alkaline Phosphatase 37 L Total Protein 4.2 L Albumin 2.1 L D Globulin 2.1 L Albumin/Globulin Ratio 1.0 Arterial Blood Potassium Blood Type Antibody Screen 06/15/16 06/15/16 12:37 14:44 WBC 22.7 H D RBC 3.82 L Hgb 11.3 L Hct 33.7 L MCV 88.3 MCH 29.7 MCHC 33.6 RDW 15.0 H Plt Count 88 L MPV 9.4 Neut % (Auto) Lymph % (Auto) Dodge % (Auto) Eos % (Auto) Baso % (Auto) Neut # Lymph # Dodge # Eos # Baso # Differential Comment PT INR APTT Puncture Site pCO2 pO2 HCO3 ABG pH ABG Total CO2 ABG O2 Saturation ABG Base Excess Alek Test ABG Potassium A-a O2 Difference Respiratory Index Glucose Lactate Mechanical Rate FiO2 Tidal Volume PEEP Sodium Potassium Chloride Carbon Dioxide Anion Gap BUN Creatinine Est GFR ( Amer) Est GFR (Non-Af Amer) POC Glucose (mg/dL) 151 H Random Glucose Lactic Acid Calcium Phosphorus Magnesium Total Bilirubin AST ALT Alkaline Phosphatase Total Protein Albumin Globulin Albumin/Globulin Ratio Arterial Blood Potassium Blood Type Antibody Screen
--- NOTE | 2016-06-15 15:45 | CP.CCUPN ---
CCU Subjective - Physician Review Events Since Last Encounter (Free Text): 06/15/16 15:43 intubated and sedated. On high amount of pressors, levophed 20 mcg/mn, vasopressin 0.04 U/mn. Not following commands, shakes, requires sedation otherwise he gets agitated. No further episodes of bleed, no more drainage through OG tube ros unable pe: bp 108/53 mmhg, hr 96 bpm, afebrile, rr 10 bpm, O2 100% on RA elderly male intubated and sedated gets agitated, unable to follow commands, does not open eyes to name s1, s2 irregularly irregular lungs good bilateral air of entry, no wheezing or crakles abdomen soft, non tender able to move all extremities a/p: massive bleed yesterday afternoon requiring multiple transfusions of blood, CT angiogram showed GI at surgical kevan site, mesenteric angiogram while in IR showed no active bleed, branches to SMA supplying the region of bleeding site on previous angiogram where empolized. hb stable, platelets 88, inr 1.2 on high amount of pressors. aspiration pneumonia: secondary to aspiration of blood during surgery, doubt acute new infection, but will start imipenem renal function is good, poor UO. a. fib due to acute disease, rate controlled s/p cardiac arrest, no arrhythmia other than a. tamar spoke to his son Rodger, they understand that he is very sick and we are on a day to day basis. He agrees to surgical intervention if needed, but do not want his father to suffer or live a live that he can not enjoy. I asked him to speak to the rest of his family and try to think what will be best for his father is things do not go well. They are a very united and warm family. CCU Objective - Vital Signs / Intake & Output Vital Signs (Last 4 hours): Vital Signs Temp Pulse Resp BP Pulse Ox 06/15/16 15:13 103 H 17 116/58 L 100 06/15/16 15:00 88 22 99 06/15/16 14:41 89 21 70/38 L 93 L 06/15/16 14:13 90 16 106/58 L 98 06/15/16 14:00 89 20 99 06/15/16 13:13 99 H 17 105/67 99 06/15/16 13:00 99.4 F 100 H 20 99 06/15/16 12:13 104 H 19 98/45 L 97 06/15/16 12:00 103 H 18 96 Intake and Output (Last 8hrs): Intake & Output 06/15/16 06/15/16 06/15/16 06:59 14:59 22:59 Intake Total 3466.8 1181.9 87.4 Output Total 720 720 20 Balance 2746.8 461.9 67.4 Weight 179 lb 8 oz Intake: Intake, IV Amount 2828.8 1181.9 87.4 Right Distal Port PICC 64.8 63.0 8.1 Right Medial Port PICC 300.0 291.7 16.9 Right External Jugular 2464 620 60 R external jugular 200 Right Arm 7.2 2.4 Blood Product 588 Apheresis Plts Acda Lr 288 Irr Unit [id number] Other 50 Apheresis Plts Acda Lr 50 Irr Unit [id number] Output: Gastric Amount 400 600 Stomach 400 600 Urine 320 120 20 Urethral (Cardenas) 320 120 20 - Physical Exam Head: Positive for: Atraumatic, Normocephalic Pupils: Positive for: PERRL Extroacular Muscles: Positive for: EOMI Conjunctiva: Positive for: Normal Mouth: Positive for: Moist Mucous Membranes Neck: Positive for: Normal Range of Motion Respiratory/Chest: Positive for: Clear to Auscultation, Good Air Exchange. Negative for: Wheezes Cardiovascular: Positive for: Normal S1, S2 Abdomen: Positive for: Tenderness, Normal Bowel Sounds. Negative for: Peritoneal Signs Back: Positive for: Normal Inspection Upper Extremity: Positive for: Normal Inspection Lower Extremity: Positive for: Normal Inspection Neurological: Positive for: CN II-XII Intact Skin: Positive for: Warm, Dry Psychiatric: Positive for: Lethargic - Medications Active Medications: Active Medications Generic Name Dose Route Start Last Admin Trade Name Freq PRN Reason Stop Dose Admin Ferric Sodium Gluconate Complex 125 mg 06/09/16 10:30 06/15/16 09:32 Ferrlecit IVPB 06/17/16 10:31 125 mg DAILY LASHA Administration Fluconazole 50 mls @ 100 mls/hr 06/04/16 10:00 06/15/16 09:31 Diflucan Iv 100 Mg/50 Ml Ns IVPB 100 mls/hr DAILY LASHA Administration Diltiazem HCl 125 mg/ Sodium 125 mls @ 5 mls/hr 06/14/16 18:00 06/14/16 20:50 Chloride IV Not Given .Q24H LASHA Protocol 5 MG/HR Lactated Ringer's 1,000 mls @ 50 mls/hr 06/15/16 10:22 06/15/16 11:25 Lactated Ringer's IV 50 mls/hr .Q20H LASHA Administration Propofol 100 mls @ 2.443 mls/hr 06/15/16 10:18 06/15/16 13:00 Diprivan IV 8.1 mls/hr .Q24H PRN Administration TITRATE PER MD ORDER Protocol 5 MCG/KG/MIN Vasopressin 40 units/ Sodium 40 mls @ 2.4 mls/hr 06/15/16 10:30 06/15/16 11:24 Chloride IV 2.4 mls/hr .[id number] LASHA Administration 0.04 UNITS/MIN Norepinephrine Bitartrate 16 266 mls @ 3.99 mls/hr 06/15/16 10:25 06/15/16 13: 11 mg/ Sodium Chloride IV 18 mcg/min .Q24H PRN Titration TITRATE PER MD ORDER Protocol 4 MCG/MIN Potassium Chloride 100 mls @ 50 mls/hr 06/15/16 16:00 Potassium Chloride 20 Meq/100 Ml IVPB 06/16/16 01:59 Q4 LASHA Latanoprost 0 ml 05/22/16 22:00 06/14/16 23:00 Xalatan Opht OU 2.5 ml HS LASHA Administration Pantoprazole Sodium 40 mg 06/11/16 10:00 06/15/16 09:33 Protonix Inj IVP 40 mg DAILY LASHA Administration Sodium Bicarbonate 650 mg 06/10/16 00:00 06/15/16 05:18 Sodium Bicarbonate Tab PO 650 mg Q6 LASHA Administration - Patient Studies Lab Studies: Lab Studies 06/15/16 06/15/16 06/15/16 Range/Units 14:44 12:37 06:55 WBC 22.7 H D (4.8-10.8) K/uL RBC 3.82 L (4.40-5.90) Mil/uL Hgb 11.3 L (12.0-18.0) g/dL Hct 33.7 L (35.0-51.0) % MCV 88.3 (80.0-94.0) fL MCH 29.7 (27.0-31.0) pg MCHC 33.6 (33.0-37.0) g/dL RDW 15.0 H (11.5-14.5) % Plt Count 88 L (130-400) K/uL MPV 9.4 (7.2-11.7) fL Neut % (Auto) (50.0-75.0) % Lymph % (Auto) (20.0-40.0) % Dent % (Auto) (0.0-10.0) % Eos % (Auto) (0.0-4.0) % Baso % (Auto) (0.0-2.0) % Neut # (1.8-7.0) K/uL Lymph # (1.0-4.3) K/uL Dent # (0.0-0.8) K/uL Eos # (0.0-0.7) K/uL Baso # (0.0-0.2) K/uL Differential Comment PT (9.7-12.2) SECONDS INR APTT (21-34) SECONDS Puncture Site pCO2 (35-45) mm/Hg pO2 (80-100) mm/Hg HCO3 (21-28) mmol/L ABG pH (7.35-7.45) ABG Total CO2 (22-28) mmol/L ABG O2 Saturation (95-98) % ABG Base Excess (-2.0-3.0) mmol/L Alek Test ABG Potassium (3.6-5.2) mmol/L A-a O2 Difference mm/Hg Respiratory Index Glucose (75-110) mg/dl Lactate (0.7-2.1) mmol/L Mechanical Rate FiO2 % Tidal Volume PEEP Sodium (132-148) mmol/L Potassium (3.6-5.2) mmol/L Chloride (98-107) mmol/L Carbon Dioxide (22-30) mmol/L Anion Gap (10-20) BUN (9-20) mg/dL Creatinine (0.8-1.5) MG/DL Est GFR ( Amer) Est GFR (Non-Af Amer) POC Glucose (mg/dL) 151 H (65-110) mg/dL Random Glucose (75-110) mg/dL Lactic Acid 2.5 H (0.7-2.1) mmol/L Calcium (8.6-10.4) mg/dl Phosphorus (2.5-4.5) mg/dL Magnesium (1.6-2.3) mg/dL Total Bilirubin (0.2-1.3) mg/dL AST (17-59) U/L ALT (21-72) U/L Alkaline Phosphatase (38-126) U/L Total Protein (6.3-8.3) g/dL Albumin (3.5-5.0) g/dL Globulin (2.2-3.9) gm/dL Albumin/Globulin Ratio (1.0-2.1) Arterial Blood Potassium (3.6-5.2) mmol/L Blood Type Antibody Screen 06/15/16 06/15/16 06/15/16 Range/Units 06:36 06:24 04:20 WBC (4.8-10.8) K/uL RBC (4.40-5.90) Mil/uL Hgb (12.0-18.0) g/dL Hct (35.0-51.0) % MCV (80.0-94.0) fL MCH (27.0-31.0) pg MCHC (33.0-37.0) g/dL RDW (11.5-14.5) % Plt Count (130-400) K/uL MPV (7.2-11.7) fL Neut % (Auto) (50.0-75.0) % Lymph % (Auto) (20.0-40.0) % Dent % (Auto) (0.0-10.0) % Eos % (Auto) (0.0-4.0) % Baso % (Auto) (0.0-2.0) % Neut # (1.8-7.0) K/uL Lymph # (1.0-4.3) K/uL Dent # (0.0-0.8) K/uL Eos # (0.0-0.7) K/uL Baso # (0.0-0.2) K/uL Differential Comment PT (9.7-12.2) SECONDS INR APTT (21-34) SECONDS Puncture Site [place] pCO2 30 L (35-45) mm/Hg pO2 60 L (80-100) mm/Hg HCO3 21.2 (21-28) mmol/L ABG pH 7.41 (7.35-7.45) ABG Total CO2 19.9 L (22-28) mmol/L ABG O2 Saturation 96.2 (95-98) % ABG Base Excess -4.5 L (-2.0-3.0) mmol/L Alek Test Na ABG Potassium 2.6 L (3.6-5.2) mmol/L A-a O2 Difference 330.0 mm/Hg Respiratory Index 5.5 Glucose 147 H (75-110) mg/dl Lactate 3.2 H (0.7-2.1) mmol/L Mechanical Rate 14 FiO2 60.0 % Tidal Volume 500 PEEP 5 Sodium 147 146.0 (132-148) mmol/L Potassium 3.0 L (3.6-5.2) mmol/L Chloride 111 H 120.0 H (98-107) mmol/L Carbon Dioxide 22 (22-30) mmol/L Anion Gap 17 (10-20) BUN 10 (9-20) mg/dL Creatinine 0.9 (0.8-1.5) MG/DL Est GFR ( Amer) > 60 Est GFR (Non-Af Amer) > 60 POC Glucose (mg/dL) 162 H (65-110) mg/dL Random Glucose 132 H (75-110) mg/dL Lactic Acid (0.7-2.1) mmol/L Calcium 7.2 L (8.6-10.4) mg/dl Phosphorus 1.4 L (2.5-4.5) mg/dL Magnesium 1.7 (1.6-2.3) mg/dL Total Bilirubin 1.7 H (0.2-1.3) mg/dL AST 19 (17-59) U/L ALT 23 (21-72) U/L Alkaline Phosphatase 37 L (38-126) U/L Total Protein 4.2 L (6.3-8.3) g/dL Albumin 2.1 L D (3.5-5.0) g/dL Globulin 2.1 L (2.2-3.9) gm/dL Albumin/Globulin Ratio 1.0 (1.0-2.1) Arterial Blood Potassium 2.6 L (3.6-5.2) mmol/L Blood Type Antibody Screen 06/15/16 06/15/16 06/14/16 Range/Units 00:44 00:05 23:36 WBC 5.1 (4.8-10.8) K/uL RBC 4.02 L (4.40-5.90) Mil/uL Hgb 12.0 (12.0-18.0) g/dL Hct 35.7 (35.0-51.0) % MCV 88.8 (80.0-94.0) fL MCH 29.9 (27.0-31.0) pg MCHC 33.7 (33.0-37.0) g/dL RDW 14.6 H (11.5-14.5) % Plt Count 100 L (130-400) K/uL MPV 8.7 (7.2-11.7) fL Neut % (Auto) 88.1 H (50.0-75.0) % Lymph % (Auto) 10.0 L (20.0-40.0) % Dent % (Auto) 1.7 (0.0-10.0) % Eos % (Auto) 0.1 (0.0-4.0) % Baso % (Auto) 0.1 (0.0-2.0) % Neut # 4.5 (1.8-7.0) K/uL Lymph # 0.5 L (1.0-4.3) K/uL Dent # 0.1 (0.0-0.8) K/uL Eos # 0.0 (0.0-0.7) K/uL Baso # 0.0 (0.0-0.2) K/uL Differential Comment PT (9.7-12.2) SECONDS INR APTT (21-34) SECONDS Puncture Site pCO2 (35-45) mm/Hg pO2 (80-100) mm/Hg HCO3 (21-28) mmol/L ABG pH (7.35-7.45) ABG Total CO2 (22-28) mmol/L ABG O2 Saturation (95-98) % ABG Base Excess (-2.0-3.0) mmol/L Alek Test ABG Potassium (3.6-5.2) mmol/L A-a O2 Difference mm/Hg Respiratory Index Glucose (75-110) mg/dl Lactate (0.7-2.1) mmol/L Mechanical Rate FiO2 % Tidal Volume PEEP Sodium 137 (132-148) mmol/L Potassium 3.7 (3.6-5.2) mmol/L Chloride 104 (98-107) mmol/L Carbon Dioxide 19 L (22-30) mmol/L Anion Gap 18 (10-20) BUN 10 (9-20) mg/dL Creatinine 0.9 (0.8-1.5) MG/DL Est GFR ( Amer) > 60 Est GFR (Non-Af Amer) > 60 POC Glucose (mg/dL) 204 H (65-110) mg/dL Random Glucose 354 H (75-110) mg/dL Lactic Acid (0.7-2.1) mmol/L Calcium 7.8 L (8.6-10.4) mg/dl Phosphorus 2.5 (2.5-4.5) mg/dL Magnesium 2.0 (1.6-2.3) mg/dL Total Bilirubin 2.3 H (0.2-1.3) mg/dL AST 22 (17-59) U/L ALT 24 (21-72) U/L Alkaline Phosphatase 38 (38-126) U/L Total Protein 5.0 L (6.3-8.3) g/dL Albumin 2.7 L (3.5-5.0) g/dL Globulin 2.3 (2.2-3.9) gm/dL Albumin/Globulin Ratio 1.2 (1.0-2.1) Arterial Blood Potassium (3.6-5.2) mmol/L Blood Type Antibody Screen 06/14/16 06/14/16 06/14/16 Range/Units 20:34 19:57 18:09 WBC 6.6 (4.8-10.8) K/uL RBC 3.97 L (4.40-5.90) Mil/uL Hgb 12.0 D (12.0-18.0) g/dL Hct 35.7 (35.0-51.0) % MCV 89.9 (80.0-94.0) fL MCH 30.2 (27.0-31.0) pg MCHC 33.6 (33.0-37.0) g/dL RDW 14.9 H (11.5-14.5) % Plt Count 88 L D (130-400) K/uL MPV 8.4 (7.2-11.7) fL Neut % (Auto) (50.0-75.0) % Lymph % (Auto) (20.0-40.0) % Dent % (Auto) (0.0-10.0) % Eos % (Auto) (0.0-4.0) % Baso % (Auto) (0.0-2.0) % Neut # (1.8-7.0) K/uL Lymph # (1.0-4.3) K/uL Dent # (0.0-0.8) K/uL Eos # (0.0-0.7) K/uL Baso # (0.0-0.2) K/uL Differential Comment PT 13.4 H (9.7-12.2) SECONDS INR 1.2 APTT 45 H D (21-34) SECONDS Puncture Site pCO2 (35-45) mm/Hg pO2 (80-100) mm/Hg HCO3 (21-28) mmol/L ABG pH (7.35-7.45) ABG Total CO2 (22-28) mmol/L ABG O2 Saturation (95-98) % ABG Base Excess (-2.0-3.0) mmol/L Alek Test ABG Potassium (3.6-5.2) mmol/L A-a O2 Difference mm/Hg Respiratory Index Glucose (75-110) mg/dl Lactate (0.7-2.1) mmol/L Mechanical Rate FiO2 % Tidal Volume PEEP Sodium 141 (132-148) mmol/L Potassium 3.8 (3.6-5.2) mmol/L Chloride 109 H (98-107) mmol/L Carbon Dioxide 19 L (22-30) mmol/L Anion Gap 17 (10-20) BUN 8 L (9-20) mg/dL Creatinine 1.0 (0.8-1.5) MG/DL Est GFR ( Amer) > 60 Est GFR (Non-Af Amer) > 60 POC Glucose (mg/dL) 242 H (65-110) mg/dL Random Glucose 224 H (75-110) mg/dL Lactic Acid (0.7-2.1) mmol/L Calcium 8.3 L (8.6-10.4) mg/dl Phosphorus (2.5-4.5) mg/dL Magnesium 2.1 (1.6-2.3) mg/dL Total Bilirubin (0.2-1.3) mg/dL AST (17-59) U/L ALT (21-72) U/L Alkaline Phosphatase (38-126) U/L Total Protein (6.3-8.3) g/dL Albumin (3.5-5.0) g/dL Globulin (2.2-3.9) gm/dL Albumin/Globulin Ratio (1.0-2.1) Arterial Blood Potassium (3.6-5.2) mmol/L Blood Type O POSITIVE Antibody Screen Negative 06/14/16 06/12/16 Range/Units 16:16 12:19 WBC (4.8-10.8) K/uL RBC (4.40-5.90) Mil/uL Hgb (12.0-18.0) g/dL Hct (35.0-51.0) % MCV (80.0-94.0) fL MCH (27.0-31.0) pg MCHC (33.0-37.0) g/dL RDW (11.5-14.5) % Plt Count (130-400) K/uL MPV (7.2-11.7) fL Neut % (Auto) (50.0-75.0) % Lymph % (Auto) (20.0-40.0) % Dent % (Auto) (0.0-10.0) % Eos % (Auto) (0.0-4.0) % Baso % (Auto) (0.0-2.0) % Neut # (1.8-7.0) K/uL Lymph # (1.0-4.3) K/uL Dent # (0.0-0.8) K/uL Eos # (0.0-0.7) K/uL Baso # (0.0-0.2) K/uL Differential Comment PT (9.7-12.2) SECONDS INR APTT (21-34) SECONDS Puncture Site pCO2 (35-45) mm/Hg pO2 (80-100) mm/Hg HCO3 (21-28) mmol/L ABG pH (7.35-7.45) ABG Total CO2 (22-28) mmol/L ABG O2 Saturation (95-98) % ABG Base Excess (-2.0-3.0) mmol/L Alek Test ABG Potassium (3.6-5.2) mmol/L A-a O2 Difference mm/Hg Respiratory Index Glucose (75-110) mg/dl Lactate (0.7-2.1) mmol/L Mechanical Rate FiO2 % Tidal Volume PEEP Sodium (132-148) mmol/L Potassium (3.6-5.2) mmol/L Chloride (98-107) mmol/L Carbon Dioxide (22-30) mmol/L Anion Gap (10-20) BUN (9-20) mg/dL Creatinine (0.8-1.5) MG/DL Est GFR ( Amer) Est GFR (Non-Af Amer) POC Glucose (mg/dL) 154 H (65-110) mg/dL Random Glucose (75-110) mg/dL Lactic Acid (0.7-2.1) mmol/L Calcium (8.6-10.4) mg/dl Phosphorus (2.5-4.5) mg/dL Magnesium (1.6-2.3) mg/dL Total Bilirubin (0.2-1.3) mg/dL AST (17-59) U/L ALT (21-72) U/L Alkaline Phosphatase (38-126) U/L Total Protein (6.3-8.3) g/dL Albumin (3.5-5.0) g/dL Globulin (2.2-3.9) gm/dL Albumin/Globulin Ratio (1.0-2.1) Arterial Blood Potassium (3.6-5.2) mmol/L Blood Type O POSITIVE Antibody Screen Negative Laboratory Results - last 24 hr 06/12/16 06/14/16 06/14/16 12:19 16:16 18:09 WBC RBC Hgb Hct MCV MCH MCHC RDW Plt Count MPV Neut % (Auto) Lymph % (Auto) Dent % (Auto) Eos % (Auto) Baso % (Auto) Neut # Lymph # Dent # Eos # Baso # Differential Comment PT INR APTT Puncture Site pCO2 pO2 HCO3 ABG pH ABG Total CO2 ABG O2 Saturation ABG Base Excess Alek Test ABG Potassium A-a O2 Difference Respiratory Index Glucose Lactate Mechanical Rate FiO2 Tidal Volume PEEP Sodium Potassium Chloride Carbon Dioxide Anion Gap BUN Creatinine Est GFR ( Amer) Est GFR (Non-Af Amer) POC Glucose (mg/dL) 154 H Random Glucose Lactic Acid Calcium Phosphorus Magnesium Total Bilirubin AST ALT Alkaline Phosphatase Total Protein Albumin Globulin Albumin/Globulin Ratio Arterial Blood Potassium Blood Type O POSITIVE O POSITIVE Antibody Screen Negative Negative 06/14/16 06/14/16 06/14/16 19:57 20:34 23:36 WBC 6.6 RBC 3.97 L Hgb 12.0 D Hct 35.7 MCV 89.9 MCH 30.2 MCHC 33.6 RDW 14.9 H Plt Count 88 L D MPV 8.4 Neut % (Auto) Lymph % (Auto) Dent % (Auto) Eos % (Auto) Baso % (Auto) Neut # Lymph # Dent # Eos # Baso # Differential Comment PT 13.4 H INR 1.2 APTT 45 H D Puncture Site pCO2 pO2 HCO3 ABG pH ABG Total CO2 ABG O2 Saturation ABG Base Excess Alek Test ABG Potassium A-a O2 Difference Respiratory Index Glucose Lactate Mechanical Rate FiO2 Tidal Volume PEEP Sodium 141 137 Potassium 3.8 3.7 Chloride 109 H 104 Carbon Dioxide 19 L 19 L Anion Gap 17 18 BUN 8 L 10 Creatinine 1.0 0.9 Est GFR ( Amer) > 60 > 60 Est GFR (Non-Af Amer) > 60 > 60 POC Glucose (mg/dL) 242 H Random Glucose 224 H 354 H Lactic Acid Calcium 8.3 L 7.8 L Phosphorus 2.5 Magnesium 2.1 2.0 Total Bilirubin 2.3 H AST 22 ALT 24 Alkaline Phosphatase 38 Total Protein 5.0 L Albumin 2.7 L Globulin 2.3 Albumin/Globulin Ratio 1.2 Arterial Blood Potassium Blood Type Antibody Screen 06/15/16 06/15/16 06/15/16 00:05 00:44 04:20 WBC 5.1 RBC 4.02 L Hgb 12.0 Hct 35.7 MCV 88.8 MCH 29.9 MCHC 33.7 RDW 14.6 H Plt Count 100 L MPV 8.7 Neut % (Auto) 88.1 H Lymph % (Auto) 10.0 L Dent % (Auto) 1.7 Eos % (Auto) 0.1 Baso % (Auto) 0.1 Neut # 4.5 Lymph # 0.5 L Dent # 0.1 Eos # 0.0 Baso # 0.0 Differential Comment PT INR APTT Puncture Site [place] pCO2 30 L pO2 60 L HCO3 21.2 ABG pH 7.41 ABG Total CO2 19.9 L ABG O2 Saturation 96.2 ABG Base Excess -4.5 L Alek Test Na ABG Potassium 2.6 L A-a O2 Difference 330.0 Respiratory Index 5.5 Glucose 147 H Lactate 3.2 H Mechanical Rate 14 FiO2 60.0 Tidal Volume 500 PEEP 5 Sodium 146.0 Potassium Chloride 120.0 H Carbon Dioxide Anion Gap BUN Creatinine Est GFR ( Amer) Est GFR (Non-Af Amer) POC Glucose (mg/dL) 204 H Random Glucose Lactic Acid Calcium Phosphorus Magnesium Total Bilirubin AST ALT Alkaline Phosphatase Total Protein Albumin Globulin Albumin/Globulin Ratio Arterial Blood Potassium 2.6 L Blood Type Antibody Screen 06/15/16 06/15/16 06/15/16 06:24 06:36 06:55 WBC RBC Hgb Hct MCV MCH MCHC RDW Plt Count MPV Neut % (Auto) Lymph % (Auto) Dent % (Auto) Eos % (Auto) Baso % (Auto) Neut # Lymph # Dent # Eos # Baso # Differential Comment PT INR APTT Puncture Site pCO2 pO2 HCO3 ABG pH ABG Total CO2 ABG O2 Saturation ABG Base Excess Alek Test ABG Potassium A-a O2 Difference Respiratory Index Glucose Lactate Mechanical Rate FiO2 Tidal Volume PEEP Sodium 147 Potassium 3.0 L Chloride 111 H Carbon Dioxide 22 Anion Gap 17 BUN 10 Creatinine 0.9 Est GFR ( Amer) > 60 Est GFR (Non-Af Amer) > 60 POC Glucose (mg/dL) 162 H Random Glucose 132 H Lactic Acid 2.5 H Calcium 7.2 L Phosphorus 1.4 L Magnesium 1.7 Total Bilirubin 1.7 H AST 19 ALT 23 Alkaline Phosphatase 37 L Total Protein 4.2 L Albumin 2.1 L D Globulin 2.1 L Albumin/Globulin Ratio 1.0 Arterial Blood Potassium Blood Type Antibody Screen 06/15/16 06/15/16 12:37 14:44 WBC 22.7 H D RBC 3.82 L Hgb 11.3 L Hct 33.7 L MCV 88.3 MCH 29.7 MCHC 33.6 RDW 15.0 H Plt Count 88 L MPV 9.4 Neut % (Auto) Lymph % (Auto) Dent % (Auto) Eos % (Auto) Baso % (Auto) Neut # Lymph # Dent # Eos # Baso # Differential Comment PT INR APTT Puncture Site pCO2 pO2 HCO3 ABG pH ABG Total CO2 ABG O2 Saturation ABG Base Excess Alek Test ABG Potassium A-a O2 Difference Respiratory Index Glucose Lactate Mechanical Rate FiO2 Tidal Volume PEEP Sodium Potassium Chloride Carbon Dioxide Anion Gap BUN Creatinine Est GFR ( Amer) Est GFR (Non-Af Amer) POC Glucose (mg/dL) 151 H Random Glucose Lactic Acid Calcium Phosphorus Magnesium Total Bilirubin AST ALT Alkaline Phosphatase Total Protein Albumin Globulin Albumin/Globulin Ratio Arterial Blood Potassium Blood Type Antibody Screen Fingerstick Blood Sugar Results: 115 Critical Care Progress Note - Nutrition Nutrition: Nutrition Category Date Time Status NPO Diet [DIET] Diets 06/14/16 Dinner Active
[2016-06-15] MEDS ORDERED: Potassium Chloride 20 mEq 100 ML IVPB SCH (16:00)
[2016-06-15 18:21] LABS: CHLORIDE 114 mmol/L (98-107); POTASSIUM 4.4 mmol/L (3.6-5.2); SODIUM 144 mmol/L (132-148)
[2016-06-15 18:24] LABS: CARBON DIOXIDE 18 mmol/L (22-30); GFR AFRICAN-AMERICAN > 60
[2016-06-15 18:25] LABS: BLOOD UREA NITROGEN 12 mg/dL (9-20); CALCIUM 7.5 mg/dl (8.6-10.4); GLUCOSE,RANDOM 122 mg/dL (75-110); MAGNESIUM 2.2 mg/dL (1.6-2.3); PHOSPHOROUS 4.8 mg/dL (2.5-4.5)
[2016-06-15 23:27] LABS: BASO # 0.1 K/uL (0.0-0.2); BASO % 0.4 % (0.0-2.0); LYMPH # 2.3 K/uL (1.0-4.3); LYMPH % 8.7 % (20.0-40.0); MEAN CORPUSCULAR HEMOGLOBIN 29.7 pg (27.0-31.0); MEAN CORPUSCULAR HGB CONC 33.4 g/dL (33.0-37.0); MEAN PLATELET VOLUME 10.2 fL (7.2-11.7); MONO # 0.3 K/uL (0.0-0.8); MONO % 1.3 % (0.0-10.0); NRBC % 0.1 % (0.0-2.0); PLATELET COUNT 77 K/uL (130-400); RED CELL DISTRIBUTION WIDTH 15.4 % (11.5-14.5); WHITE BLOOD COUNT 26.1 K/uL (4.8-10.8)
[2016-06-15 23:35] LABS: CHLORIDE 112 mmol/L (98-107); POTASSIUM 3.8 mmol/L (3.6-5.2); SODIUM 143 mmol/L (132-148)
[2016-06-15 23:38] LABS: BLOOD UREA NITROGEN 12 mg/dL (9-20); CARBON DIOXIDE 19 mmol/L (22-30); GFR AFRICAN-AMERICAN > 60
[2016-06-15 23:39] LABS: CALCIUM 7.4 mg/dl (8.6-10.4); GLUCOSE,RANDOM 106 mg/dL (75-110); MAGNESIUM 2.1 mg/dL (1.6-2.3); PHOSPHOROUS 3.6 mg/dL (2.5-4.5)
[2016-06-16 01:12] LABS: METAMYELOCYTE 1 % (0-0); NEUTROPHIL 26 % (50-75); REACTIVE LYMPHOCYTES 5 % (0-0); TOTAL CELLS COUNTED 100
[2016-06-16] MEDS: Lactated Ringer's 1,000 ML IV SCH ×2 (05:37→16:57)
[2016-06-16 06:49] LABS: BASO % 0.2 % (0.0-2.0); EOS # 0.2 K/uL (0.0-0.7); EOS % 0.8 % (0.0-4.0); LYMPH # 1.9 K/uL (1.0-4.3); LYMPH % 7.4 % (20.0-40.0); MEAN CELL VOLUME 90.2 fL (80.0-94.0); MEAN CORPUSCULAR HEMOGLOBIN 30.3 pg (27.0-31.0); MEAN CORPUSCULAR HGB CONC 33.5 g/dL (33.0-37.0); MONO # 0.6 K/uL (0.0-0.8); MONO % 2.2 % (0.0-10.0); PLATELET COUNT 66 K/uL (130-400); RED CELL DISTRIBUTION WIDTH 15.8 % (11.5-14.5)
[2016-06-16 06:54] LABS: CHLORIDE 110 mmol/L (98-107)
[2016-06-16 06:55] LABS: POTASSIUM 3.7 mmol/L (3.6-5.2); SODIUM 146 mmol/L (132-148)
[2016-06-16 06:57] LABS: AST/SGOT 13 U/L (17-59); BILIRUBIN,TOTAL 0.8 mg/dL (0.2-1.3); BLOOD UREA NITROGEN 14 mg/dL (9-20); CARBON DIOXIDE 19 mmol/L (22-30); GFR AFRICAN-AMERICAN > 60; TOTAL PROTEIN 4.1 g/dL (6.3-8.3)
[2016-06-16 06:58] LABS: ALKALINE PHOSPHATASE 55 U/L (38-126); ALT/SGPT 20 U/L (21-72); GLUCOSE,RANDOM 91 mg/dL (75-110)
--- NOTE | 2016-06-16 08:09 | CP.PCM.PN ---
Subjective - Date & Time of Evaluation Date of Evaluation: 06/16/16 Time of Evaluation: 08:06 - Subjective Subjective: Remains sedated and intubated FI02: 60% Levophed and vasopressin AFIB noted but rate better H/H 11 > 10.4 BP >100 on pressors Objective - Vital Signs/Intake and Output Vital Signs (last 24 hours): Temp Pulse Resp BP Pulse Ox 98.8 F 79 14 97/44 L 99 06/16/16 05:00 06/16/16 06:13 06/16/16 06:13 06/16/16 06:13 06/16/16 06:13 Intake and Output: 06/16/16 06/16/16 06:59 18:59 Intake Total 1032.4 Output Total 700 Balance 332.4 - Medications Medications: Current Medications Ferric Sodium Gluconate Complex (Ferrlecit) 125 mg IVPB DAILY LASHA Stop: 06/17/16 10:31 Last Admin: 06/15/16 09:32 Dose: 125 mg Fluconazole (Diflucan Iv 100 Mg/50 Ml Ns) 50 mls @ 100 mls/hr IVPB DAILY LASHA Last Admin: 06/15/16 09:31 Dose: 100 mls/hr Diltiazem HCl 125 mg/ Sodium (Chloride) 125 mls @ 5 mls/hr IV .Q24H LASHA; 5 MG/ HR PRN Reason: Protocol Last Admin: 06/15/16 18:42 Dose: Not Given Lactated Ringer's (Lactated Ringer's) 1,000 mls @ 50 mls/hr IV .Q20H LASHA Last Admin: 06/16/16 05:37 Dose: Not Given Propofol (Diprivan) 100 mls @ 2.443 mls/hr IV .Q24H PRN; Protocol; 5 MCG/KG/MIN PRN Reason: TITRATE PER MD ORDER Last Titration: 06/16/16 06:30 Dose: 20.26 mcg/kg/min Vasopressin 40 units/ Sodium (Chloride) 40 mls @ 2.4 mls/hr IV .[id number] [facility] PRN Reason: 0.04 UNITS/MIN Last Admin: 06/16/16 02:41 Dose: 2.4 mls/hr Norepinephrine Bitartrate 16 (mg/ Sodium Chloride) 266 mls @ 3.99 mls/hr IV .Q24H PRN; Protocol; 4 MCG/MIN PRN Reason: TITRATE PER MD ORDER Last Admin: 06/16/16 04:54 Dose: 17.95 mls/hr Imipenem/Cilastatin Sodium 500 (mg/ Sodium Chloride) 100 mls @ 100 mls/hr IVPB Q8H [facility] Last Admin: 06/16/16 01:00 Dose: 100 mls/hr Latanoprost (Xalatan Opht) 0 ml OU HS [facility] Last Admin: 06/15/16 23:00 Dose: 2.5 ml Pantoprazole Sodium (Protonix Inj) 40 mg IVP DAILY [facility] Last Admin: 06/15/16 09:33 Dose: 40 mg Sodium Bicarbonate (Sodium Bicarbonate Tab) 650 mg PO Q6 [facility] Last Admin: 06/16/16 05:00 Dose: 650 mg - Labs Labs: 06/16/16 06:40 06/16/16 06:40 PT 13.4 SECONDS (9.7-12.2) H 06/14/16 20:34 INR 1.2 06/14/16 20:34 APTT 45 SECONDS (21-34) H D 06/14/16 20:34 - Constitutional Appears: Other (Intubated and sedated) - Respiratory Exam Respiratory Exam: Rhonchi (scattered) - Extremities Exam Extremities Exam: absent: Pedal Edema - Neurological Exam Neurological Exam: Altered - Skin Skin Exam: Normal Color, Warm Assessment and Plan - Assessment and Plan (Free Text) Assessment: Recurrent GI bleed and urgent embolization of SMA near R. colon done) S/P CPR for acute hyvolumic shock: VT shock x1; blood products, pressors and intubation P. 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 s/p FFP and platelet transfusion for refractory anemia and recurrent GI bleed. Off antiplatelets for now. * Risk assesment in progress for possible surgical GI intervention for GI bleed planned if recurrence of GI bleed or worsening of anemia. * There is no futher cardiac work up at this time. We will following along to assist in fluid management and hemodynamics for chronic systolic CHF and moderate . Currently he is hemodynamically stable without volume overload, arrythmias. CADIAC: * Chronic compensated Mod LV systolic dysfunction, mild MR, Mod , distal septal and anterior akinesia due to chronic CAD s/p CABG in 2013. * Hx of known mild-mod LV dysfunction EF 35-40% due to ischemic cardiomyopathy * Euvolemic at present * BP and HR are apporiate * Lower extrem edema is improved: * CKD stage 3A chronic * No AFIB seen on any EKG or documented strips Suggest IV amiodarone if recurrence of rapid AFIB or ventricular arrythmia Cont vent and pressor support May need urgent colectomy if recurrence of bleed Long discussion with family who was at bedside thursday regards clinical course.
[2016-06-16 08:16] LABS: BASOPHIL 1 % (0-2); EOSINOPHIL 1 % (0-4); NEUTROPHIL 35 % (50-75); TOTAL CELLS COUNTED 100
--- NOTE | 2016-06-16 08:19 | CP.PCM.PN ---
<Eileen Arce - Last Filed: 06/16/16 08:17> Subjective - Date & Time of Evaluation Date of Evaluation: 06/16/16 Time of Evaluation: 07:30 - Subjective Subjective: General Surgery Dr. Crane Pt S&E @bedside. NAEO. 2 dark brown BM overnight intubated and sedated. NGT 350cc output. receiving 18mcg Levo and 0.04 Vaso Vent setting 14, 500, 5, 60%, O2 Sat 99% Objective - Vital Signs/Intake and Output Vital Signs (last 24 hours): Temp Pulse Resp BP Pulse Ox 98.8 F 79 14 97/44 L 99 06/16/16 05:00 06/16/16 06:13 06/16/16 06:13 06/16/16 06:13 06/16/16 06:13 Intake and Output: 06/16/16 06/16/16 06:59 18:59 Intake Total 1032.4 Output Total 700 Balance 332.4 - Medications Medications: Current Medications Ferric Sodium Gluconate Complex (Ferrlecit) 125 mg IVPB DAILY [facility] Stop: 06/17/16 10:31 Last Admin: 06/15/16 09:32 Dose: 125 mg Fluconazole (Diflucan Iv 100 Mg/50 Ml Ns) 50 mls @ 100 mls/hr IVPB DAILY [facility] Last Admin: 06/15/16 09:31 Dose: 100 mls/hr Diltiazem HCl 125 mg/ Sodium (Chloride) 125 mls @ 5 mls/hr IV .Q24H [facility]; 5 MG/ HR PRN Reason: Protocol Last Admin: 06/15/16 18:42 Dose: Not Given Lactated Ringer's (Lactated Ringer's) 1,000 mls @ 50 mls/hr IV .Q20H [facility] Last Admin: 06/16/16 05:37 Dose: Not Given Propofol (Diprivan) 100 mls @ 2.443 mls/hr IV .Q24H PRN; Protocol; 5 MCG/KG/MIN PRN Reason: TITRATE PER MD ORDER Last Titration: 06/16/16 06:30 Dose: 20.26 mcg/kg/min Vasopressin 40 units/ Sodium (Chloride) 40 mls @ 2.4 mls/hr IV .[id number] [facility] PRN Reason: 0.04 UNITS/MIN Last Admin: 06/16/16 02:41 Dose: 2.4 mls/hr Norepinephrine Bitartrate 16 (mg/ Sodium Chloride) 266 mls @ 3.99 mls/hr IV .Q24H PRN; Protocol; 4 MCG/MIN PRN Reason: TITRATE PER MD ORDER Last Admin: 06/16/16 04:54 Dose: 17.95 mls/hr Imipenem/Cilastatin Sodium 500 (mg/ Sodium Chloride) 100 mls @ 100 mls/hr IVPB Q8H [facility] Last Admin: 06/16/16 01:00 Dose: 100 mls/hr Latanoprost (Xalatan Opht) 0 ml OU HS [facility] Last Admin: 06/15/16 23:00 Dose: 2.5 ml Pantoprazole Sodium (Protonix Inj) 40 mg IVP DAILY [facility] Last Admin: 06/15/16 09:33 Dose: 40 mg Sodium Bicarbonate (Sodium Bicarbonate Tab) 650 mg PO Q6 [facility] Last Admin: 06/16/16 05:00 Dose: 650 mg - Labs Labs: 06/16/16 06:40 06/16/16 06:40 Laboratory Tests 06/16/16 06:40 Calcium 7.0 L Total Bilirubin 0.8 AST 13 L D ALT 20 L Alkaline Phosphatase 55 Total Protein 4.1 L Albumin 2.1 L - Constitutional Appears: Toxic, No Acute Distress, Unkempt, Chronically Ill - Head Exam Head Exam: NORMAL INSPECTION - Eye Exam Eye Exam: Normal appearance - ENT Exam ENT Exam: Mucous Membranes Moist - Respiratory Exam Respiratory Exam: NORMAL BREATHING PATTERN. absent: Accessory Muscle Use, Respiratory Distress (on mechanical ventilation) - Cardiovascular Exam Cardiovascular Exam: absent: Bradycardia, Tachycardia - GI/Abdominal Exam GI & Abdominal Exam: Distended (minimal), Soft. absent: Tenderness - Neurological Exam Neurological Exam: Altered (sedated) - Skin Skin Exam: Dry, Intact, Normal Color, Warm Assessment and Plan - Assessment and Plan (Free Text) Assessment: 85 y/o M w/ lower GI bleed POD#2 s/p mesenteric angiogram w/ embolization of SMA branches supplying right colon by IR - Monitor H/H - currently stable - monitor vitals - titrate pressors per Critical Care - Possible OR if patient starts to bleed again Pt discussed w/ Dr. Rosa Maria Arce PGY1 <Erasmo Crane B - Last Filed: 06/16/16 21:13> Objective - Vital Signs/Intake and Output Vital Signs (last 24 hours): Temp Pulse Resp BP Pulse Ox 98.6 F 79 18 114/48 L 99 06/16/16 17:00 06/16/16 21:00 06/16/16 21:00 06/16/16 20:13 06/16/16 21:00 Intake and Output: 06/16/16 06/17/16 18:59 06:59 Intake Total 1113.0 151.0 Output Total 535 35 Balance 578.0 116.0 - Medications Medications: Current Medications Albumin Human (Albumin Human 25% (12.5 Gm/50 Ml)) 12.5 gm IV Q12 [facility] Stop: 06/18/16 10:01 Last Admin: 06/16/16 10:36 Dose: 12.5 gm Ferric Sodium Gluconate Complex (Ferrlecit) 125 mg IVPB DAILY [facility] Stop: 06/17/16 10:31 Last Admin: 06/16/16 10:11 Dose: 125 mg Fluconazole (Diflucan Iv 100 Mg/50 Ml Ns) 50 mls @ 100 mls/hr IVPB DAILY [facility] Last Admin: 06/16/16 10:10 Dose: 100 mls/hr Lactated Ringer's (Lactated Ringer's) 1,000 mls @ 50 mls/hr IV .Q20H [facility] Last Admin: 06/16/16 16:57 Dose: 50 mls/hr Propofol (Diprivan) 100 mls @ 2.443 mls/hr IV .Q24H PRN; Protocol; 5 MCG/KG/MIN PRN Reason: TITRATE PER MD ORDER Last Titration: 06/16/16 14:00 Dose: 16.58 mcg/kg/min Vasopressin 40 units/ Sodium (Chloride) 40 mls @ 2.4 mls/hr IV .[id number] [facility] PRN Reason: 0.04 UNITS/MIN Last Admin: 06/16/16 16:58 Dose: 2.4 mls/hr Norepinephrine Bitartrate 16 (mg/ Sodium Chloride) 266 mls @ 3.99 mls/hr IV .Q24H PRN; Protocol; 4 MCG/MIN PRN Reason: TITRATE PER MD ORDER Last Admin: 04/10/17 16:53 Dose: 15 mls/hr Imipenem/Cilastatin Sodium 500 (mg/ Sodium Chloride) 100 mls @ 100 mls/hr IVPB Q8H [facility] Last Admin: 06/16/16 16:52 Dose: 100 mls/hr Latanoprost (Xalatan Opht) 0 ml OU HS [facility] Last Admin: 06/15/16 23:00 Dose: 2.5 ml Pantoprazole Sodium (Protonix Inj) 40 mg IVP DAILY [facility] Last Admin: 06/16/16 10:12 Dose: 40 mg - Labs Labs: 06/16/16 06:40 06/16/16 06:40 PT 13.4 SECONDS (9.7-12.2) H 06/14/16 20:34 INR 1.2 06/14/16 20:34 APTT 45 SECONDS (21-34) H D 06/14/16 20:34 Attending/Attestation - Attestation I have personally seen and examined this patient.: Yes I have fully participated in the care of the patient.: Yes I have reviewed all pertinent clinical information, including history, physical exam and plan: Yes Notes (Text): 06/16/16 21:09 Pt was seen and examined at bedside on 06/16/16 Agree with above note and assessment Pt with VDRF and possible Aspiration pneumonia. No evidence of Lower GI bleed at present Continue with current mx Plan d/w ICU attending and nurse.
[2016-06-16 08:36] LABS: ABG MECHANICAL RATE 14; ARTERIAL BLOOD HGB O2 SAT 96.6 % (95.0-98.0); ATERIAL BLOOD GAS PEEP 5; CARBOXYHEMOGLOBIN 1.1 % (0.5-1.5); DRAW SITE A LINE; HHB 0.9 % (0.0-5.0); METHEMOGLOBIN 1.4 % (0.0-3.0)
--- NOTE | 2016-06-16 10:00 | CP.PCM.PN ---
<Indra Hennessy - Last Filed: 06/16/16 10:01> Subjective - Date & Time of Evaluation Date of Evaluation: 06/16/16 Time of Evaluation: 09:55 - Subjective Subjective: PGY4 GI Fellow Progress Note Patient seen and examined bedside this morning. Over the weekend, patient continued to have rectal bleeding as well as episode of hematemesis. Patient went for bleeding scan but required emergent intubation, episode of AFib RVR. Following this and suffering from hypovolemic shock, he coded requiring ACLS with 2 epinephrine, shocked once. CTA revelaed active colonic bleeding and patient and underwent emergent SMA microcoil emobolization with IR. Today, patient remains intubated, sedated however no episodes of bleeding since embolization. 12 system ROS cannot be performed given clinical condition. Objective - Vital Signs/Intake and Output Vital Signs (last 24 hours): Temp Pulse Resp BP Pulse Ox 98.8 F 82 14 114/46 L 100 06/16/16 05:00 06/16/16 09:13 06/16/16 09:13 06/16/16 09:13 06/16/16 09:13 Intake and Output: 06/16/16 06/16/16 06:59 18:59 Intake Total 1032.4 156.6 Output Total 700 40 Balance 332.4 116.6 - Medications Medications: Current Medications Ferric Sodium Gluconate Complex (Ferrlecit) 125 mg IVPB DAILY [facility] Stop: 06/17/16 10:31 Last Admin: 06/15/16 09:32 Dose: 125 mg Fluconazole (Diflucan Iv 100 Mg/50 Ml Ns) 50 mls @ 100 mls/hr IVPB DAILY [facility] Last Admin: 06/15/16 09:31 Dose: 100 mls/hr Diltiazem HCl 125 mg/ Sodium (Chloride) 125 mls @ 5 mls/hr IV .Q24H [facility]; 5 MG/ HR PRN Reason: Protocol Last Admin: 06/15/16 18:42 Dose: Not Given Lactated Ringer's (Lactated Ringer's) 1,000 mls @ 50 mls/hr IV .Q20H [facility] Last Admin: 06/16/16 05:37 Dose: Not Given Propofol (Diprivan) 100 mls @ 2.443 mls/hr IV .Q24H PRN; Protocol; 5 MCG/KG/MIN PRN Reason: TITRATE PER MD ORDER Last Titration: 06/16/16 06:30 Dose: 20.26 mcg/kg/min Vasopressin 40 units/ Sodium (Chloride) 40 mls @ 2.4 mls/hr IV .[id number] [facility] PRN Reason: 0.04 UNITS/MIN Last Admin: 06/16/16 02:41 Dose: 2.4 mls/hr Norepinephrine Bitartrate 16 (mg/ Sodium Chloride) 266 mls @ 3.99 mls/hr IV .Q24H PRN; Protocol; 4 MCG/MIN PRN Reason: TITRATE PER MD ORDER Last Admin: 06/16/16 04:54 Dose: 17.95 mls/hr Imipenem/Cilastatin Sodium 500 (mg/ Sodium Chloride) 100 mls @ 100 mls/hr IVPB Q8H [facility] Last Admin: 06/16/16 01:00 Dose: 100 mls/hr Latanoprost (Xalatan Opht) 0 ml OU HS [facility] Last Admin: 06/15/16 23:00 Dose: 2.5 ml Pantoprazole Sodium (Protonix Inj) 40 mg IVP DAILY [facility] Last Admin: 06/15/16 09:33 Dose: 40 mg Sodium Bicarbonate (Sodium Bicarbonate Tab) 650 mg PO Q6 [facility] Last Admin: 06/16/16 05:00 Dose: 650 mg - Labs Labs: 06/16/16 06:40 06/16/16 06:40 PT 13.4 SECONDS (9.7-12.2) H 06/14/16 20:34 INR 1.2 06/14/16 20:34 APTT 45 SECONDS (21-34) H D 06/14/16 20:34 - Constitutional Appears: Chronically Ill, Other (intubated, sedated) - Eye Exam Eye Exam: PERRL - ENT Exam ENT Exam: Mucous Membranes Dry Additional comments: ETT in place - Respiratory Exam Respiratory Exam: Rales. absent: Clear to Ausculation Bilateral, Rhonchi, Wheezes - Cardiovascular Exam Cardiovascular Exam: RRR, +S1, +S2 - GI/Abdominal Exam GI & Abdominal Exam: Soft, Normal Bowel Sounds. absent: Distended, Firm, Guarding, Rigid, Tenderness, Organomegaly - Extremities Exam Extremities Exam: Normal Inspection. absent: Pedal Edema - Skin Skin Exam: Dry, Warm Assessment and Plan - Assessment and Plan (Free Text) Assessment: Patient is an 85yo male with PMHx significant for unknown prior colectomy with ileocolonic anastamosis, anemia, CAD s/p 3 vessel CABG, moderate aortic stenosis , ischemic cardiomyopathy (EF 35-40%), CKD Stage 3, Hypertension, Hyperlipidemia who [place] with weakness and hematochezia. -Hypovolemic shock -VTach arrest requiring ACLS -Acute blood loss anemia 2/2 acute GI hemorrhage -Ileocolonic anastamotic ulceration -PUD -CAD -Systolic CHF -CKD -HTN -HLD Plan: -S/P IR embolization of SMA -Given O blood group; ~30% of patient suffer with vWF deficiency - labs ordered ; if patient re-bleeds, consider DDAVP infusion -No further endoscopic evaluations planned -Will continue to monitor patient's condition peripherally; no intent to perform repeat endoscopic procedure at this time <Hailey Negrete MD - Last Filed: 06/16/16 12:28> Objective - Vital Signs/Intake and Output Vital Signs (last 24 hours): Temp Pulse Resp BP Pulse Ox 98.9 F 79 14 104/43 L 100 06/16/16 09:00 06/16/16 11:00 06/16/16 11:00 06/16/16 10:13 06/16/16 11:00 Intake and Output: 06/16/16 06/16/16 06:59 18:59 Intake Total 1032.4 387.1 Output Total 700 70 Balance 332.4 317.1 - Medications Medications: Current Medications Albumin Human (Albumin Human 25% (12.5 Gm/50 Ml)) 12.5 gm IV Q12 [facility] Stop: 06/18/16 10:01 Last Admin: 06/16/16 10:36 Dose: 12.5 gm Ferric Sodium Gluconate Complex (Ferrlecit) 125 mg IVPB DAILY [facility] Stop: 06/17/16 10:31 Last Admin: 06/16/16 10:11 Dose: 125 mg Fluconazole (Diflucan Iv 100 Mg/50 Ml Ns) 50 mls @ 100 mls/hr IVPB DAILY [facility] Last Admin: 06/16/16 10:10 Dose: 100 mls/hr Lactated Ringer's (Lactated Ringer's) 1,000 mls @ 50 mls/hr IV .Q20H [facility] Last Admin: 06/16/16 05:37 Dose: Not Given Propofol (Diprivan) 100 mls @ 2.443 mls/hr IV .Q24H PRN; Protocol; 5 MCG/KG/MIN PRN Reason: TITRATE PER MD ORDER Last Admin: 06/16/16 10:10 Dose: 7.328 mls/hr Vasopressin 40 units/ Sodium (Chloride) 40 mls @ 2.4 mls/hr IV .[id number] [facility] PRN Reason: 0.04 UNITS/MIN Last Admin: 06/16/16 02:41 Dose: 2.4 mls/hr Norepinephrine Bitartrate 16 (mg/ Sodium Chloride) 266 mls @ 3.99 mls/hr IV .Q24H PRN; Protocol; 4 MCG/MIN PRN Reason: TITRATE PER MD ORDER Last Admin: 06/16/16 04:54 Dose: 17.95 mls/hr Imipenem/Cilastatin Sodium 500 (mg/ Sodium Chloride) 100 mls @ 100 mls/hr IVPB Q8H [facility] Last Admin: 06/16/16 10:12 Dose: 100 mls/hr Latanoprost (Xalatan Opht) 0 ml OU HS [facility] Last Admin: 06/15/16 23:00 Dose: 2.5 ml Pantoprazole Sodium (Protonix Inj) 40 mg IVP DAILY [facility] Last Admin: 06/16/16 10:12 Dose: 40 mg - Labs Labs: 06/16/16 06:40 06/16/16 06:40 PT 13.4 SECONDS (9.7-12.2) H 06/14/16 20:34 INR 1.2 06/14/16 20:34 APTT 45 SECONDS (21-34) H D 06/14/16 20:34 Attending/Attestation - Attestation I have personally seen and examined this patient.: Yes I have fully participated in the care of the patient.: Yes I have reviewed all pertinent clinical information, including history, physical exam and plan: Yes Notes (Text): 06/16/16 12:24 85yo male with PMHx significant for unknown prior colectomy with ileocolonic anastamosis, anemia, CAD s/p 3 vessel CABG, moderate aortic stenosis, ischemic cardiomyopathy (EF 35-40%), CKD Stage 3, Hypertension, Hyperlipidemia who [place] with [place] and hematochezia s/p multiple bidirectional endoscopic interventions with ulcer cauterization in duodenal bulb and ulcer cauterization in ileo colonic anastomosis with no clear source of massive bleeding. Inspite of that drop in hb and multiple episodes of melena and hematemesis. After yesterdays bleeidng episode became hemodynamically unstable and it was deemed appropriate to embolize SMA. Today he was seen intubated on pressors in MICU. Given O blood group; ~30% of patient suffer with vWF deficiency - labs ordered; if patient re-bleeds, consider DDAVP infusion. Discussed with market gardener and no further endoscopic evaluations planned -Will continue to monitor patient's condition peripherally - Appreciate excellent MICU care
[2016-06-16] MEDS: Fluconazole IV 100mg/50 ml NS 50 ML IVPB SCH (10:10)
[2016-06-16] MEDS: Ferric Sodium Gluconat Complex 62.5 mg/5 ml Vial IVPB SCH (10:11)
[2016-06-16] MEDS: Albumin Human 25% (12.5 gm/50 ml) IV SCH ×2 (10:36→22:10)
--- NOTE | 2016-06-16 11:12 | CP.CCUPN ---
CCU Subjective - Physician Review Subjective (Free Text): 06/16/16 11:12 Pt seen and examined at bedside. He remains intubated and sedated. Over the weekend, pt had derek bloody stools and episode of hematemesis. Bleeding scan was ordered, but during study needed emergent intubation, with an episode of atrial fibrillation with RVR. Pt later coded and was given 2 epis, and shocked once. CTA revelaed active colonic bleeding and patient and underwent emergent SMA microcoil emobolization with IR. Currently on pressors: Levophed 18mcg/min, vasopressin 0.04 u/min. Pt not following commands, and appears somnolent. Nursing reports 2 additional black BMs overnight/this AM. Unable to obtain ROS at this time due to pt condition. Will stay in contact with pts son, Rodger, to discuss plan of care. Critical Care Time Spent (in minutes): 40 CCU Objective - Vital Signs / Intake & Output Vital Signs (Last 4 hours): Vital Signs Temp Pulse Resp BP Pulse Ox 06/16/16 09:13 82 14 114/46 L 100 06/16/16 09:00 98.9 F 78 15 100 06/16/16 08:13 80 14 111/49 L 100 06/16/16 08:00 80 15 100 06/16/16 07:13 82 14 106/43 L 99 Intake and Output (Last 8hrs): Intake & Output 06/15/16 06/16/16 06/16/16 22:59 06:59 14:59 Intake Total 639.2 722.8 311.0 Output Total 545 240 70 Balance 94.2 482.8 241.0 Weight 190 lb 6 oz Intake: IV 0 Intake, IV Amount 639.2 722.8 311.0 Right Distal Port PICC 64.8 68.4 33.8 Right Medial Port PICC 135.2 135.2 67.6 Right External Jugular 420 400 200 R external jugular 100 Right Arm 19.2 19.2 9.6 Output: Gastric Amount 350 Stomach 350 Urine 195 240 70 Urethral (Cardenas) 195 240 70 - Physical Exam Physical Exam Limitations: Positive for: Altered Mental Status, Clinical Condition, Uncooperative Head: Positive for: Atraumatic, Normocephalic. Negative for: Swelling Pupils: Positive for: PERRL Extroacular Muscles: Positive for: EOMI Conjunctiva: Positive for: Normal Mouth: Positive for: Dry Neck: Positive for: Normal Range of Motion Respiratory/Chest: Positive for: Clear to Auscultation, Good Air Exchange. Negative for: Wheezes Cardiovascular: Positive for: Normal S1, S2 Abdomen: Positive for: Tenderness, Distention (remains minimal), Normal Bowel Sounds. Negative for: Peritoneal Signs Back: Positive for: Normal Inspection Upper Extremity: Positive for: Normal Inspection Lower Extremity: Positive for: Normal Inspection Neurological: Positive for: Other Skin: Positive for: Warm, Dry Psychiatric: Positive for: Alert, Lethargic - Medications Active Medications: Active Medications Generic Name Dose Route Start Last Admin Trade Name Freq PRN Reason Stop Dose Admin Albumin Human 12.5 gm 06/16/16 10:00 06/16/16 10:36 Albumin Human 25% (12.5 Gm/50 Ml) IV 06/18/16 10:01 12.5 gm Q12 LASHA Administration Ferric Sodium Gluconate Complex 125 mg 06/09/16 10:30 06/16/16 10:11 Ferrlecit IVPB 06/17/16 10:31 125 mg DAILY LASHA Administration Fluconazole 50 mls @ 100 mls/hr 06/04/16 10:00 06/16/16 10:10 Diflucan Iv 100 Mg/50 Ml Ns IVPB 100 mls/hr DAILY LASHA Administration Lactated Ringer's 1,000 mls @ 50 mls/hr 06/15/16 10:22 06/16/16 05:37 Lactated Ringer's IV Not Given .Q20H LASHA Propofol 100 mls @ 2.443 mls/hr 06/15/16 10:18 06/16/16 10:10 Diprivan IV 7.328 mls/hr .Q24H PRN Administration TITRATE PER MD ORDER Protocol 5 MCG/KG/MIN Vasopressin 40 units/ Sodium 40 mls @ 2.4 mls/hr 06/15/16 10:30 06/16/16 02:41 Chloride IV 2.4 mls/hr .[id number] LASHA Administration 0.04 UNITS/MIN Norepinephrine Bitartrate 16 266 mls @ 3.99 mls/hr 06/15/16 10:25 06/16/16 04: 54 mg/ Sodium Chloride IV 17.95 mls/hr .Q24H PRN Administration TITRATE PER MD ORDER Protocol 4 MCG/MIN Imipenem/Cilastatin Sodium 500 100 mls @ 100 mls/hr 06/15/16 17:00 06/16/16 10: 12 mg/ Sodium Chloride IVPB 100 mls/hr Q8H LASHA Administration Latanoprost 0 ml 05/22/16 22:00 06/15/16 23:00 Xalatan Opht OU 2.5 ml HS LASHA Administration Pantoprazole Sodium 40 mg 06/11/16 10:00 06/16/16 10:12 Protonix Inj IVP 40 mg DAILY LASHA Administration - Patient Studies Lab Studies: Lab Studies 06/16/16 06/16/16 06/16/16 Range/Units 08:33 07:24 06:40 WBC 26.0 H (4.8-10.8) K/uL RBC 3.43 L (4.40-5.90) Mil/uL Hgb 10.4 L (12.0-18.0) g/dL Hct 31.0 L (35.0-51.0) % MCV 90.2 (80.0-94.0) fL MCH 30.3 (27.0-31.0) pg MCHC 33.5 (33.0-37.0) g/dL RDW 15.8 H (11.5-14.5) % Plt Count 66 L (130-400) K/uL MPV 10.0 (7.2-11.7) fL Neut % (Auto) 89.4 H (50.0-75.0) % Lymph % (Auto) 7.4 L (20.0-40.0) % [place] % (Auto) 2.2 (0.0-10.0) % Eos % (Auto) 0.8 (0.0-4.0) % Baso % (Auto) 0.2 (0.0-2.0) % Neut # 23.2 H (1.8-7.0) K/uL Lymph # 1.9 (1.0-4.3) K/uL [place] # 0.6 (0.0-0.8) K/uL Eos # 0.2 (0.0-0.7) K/uL Baso # 0.0 (0.0-0.2) K/uL Neutrophils % (Manual) 35 L (50-75) % Band Neutrophils % 60 H* (0-2) % Lymphocytes % (Manual) 2 L (20-40) % Reactive Lymphs % (0-0) % Monocytes % (Manual) 1 (0-10) % Eosinophils % (Manual) 1 (0-4) % Basophils % (Manual) 1 (0-2) % Metamyelocytes % (0-0) % Differential Comment Toxic Granulation Present Dohle Bodies Present Platelet Estimate Decreased L (NORMAL) Basophilic Stippling Slight Anisocytosis (manual) Slight Peacham Cells Moderate Puncture Site A line pCO2 36 (35-45) mm/Hg pO2 139 H (80-100) mm/Hg HCO3 19.6 L (21-28) mmol/L ABG pH 7.32 L (7.35-7.45) ABG Total CO2 19.6 L (22-28) mmol/L ABG O2 Saturation 99.1 H (95-98) % ABG Base Excess -6.9 L (-2.0-3.0) mmol/L ABG Hemoglobin 9.9 L (11.7-17.4) g/dL ABG Carboxyhemoglobin 1.1 (0.5-1.5) % POC ABG HHb (Measured) 0.9 (0.0-5.0) % ABG Methemoglobin 1.4 (0.0-3.0) % Alek Test Na A-a O2 Difference 244.0 mm/Hg Respiratory Index 1.8 Hgb O2 Saturation 96.6 (95.0-98.0) % Mechanical Rate 14 FiO2 60.0 % Tidal Volume 500 PEEP 5 Sodium 146 (132-148) mmol/L Potassium 3.7 (3.6-5.2) mmol/L Chloride 110 H (98-107) mmol/L Carbon Dioxide 19 L (22-30) mmol/L Anion Gap 21 H (10-20) BUN 14 (9-20) mg/dL Creatinine 1.2 (0.8-1.5) MG/DL Est GFR ( Amer) > 60 Est GFR (Non-Af Amer) 58 POC Glucose (mg/dL) 108 (65-110) mg/dL Random Glucose 91 (75-110) mg/dL Calcium 7.0 L (8.6-10.4) mg/dl Phosphorus (2.5-4.5) mg/dL Magnesium (1.6-2.3) mg/dL Total Bilirubin 0.8 (0.2-1.3) mg/dL AST 13 L D (17-59) U/L ALT 20 L (21-72) U/L Alkaline Phosphatase 55 (38-126) U/L Total Protein 4.1 L (6.3-8.3) g/dL Albumin 2.1 L (3.5-5.0) g/dL Globulin 2.1 L (2.2-3.9) gm/dL Albumin/Globulin Ratio 1.0 (1.0-2.1) 06/15/16 06/15/16 06/15/16 Range/Units 23:43 23:24 18:09 WBC 26.1 H (4.8-10.8) K/uL RBC 3.71 L (4.40-5.90) Mil/uL Hgb 11.0 L (12.0-18.0) g/dL Hct 33.0 L (35.0-51.0) % MCV 89.0 (80.0-94.0) fL MCH 29.7 (27.0-31.0) pg MCHC 33.4 (33.0-37.0) g/dL RDW 15.4 H (11.5-14.5) % Plt Count 77 L (130-400) K/uL MPV 10.2 (7.2-11.7) fL Neut % (Auto) 89.6 H (50.0-75.0) % Lymph % (Auto) 8.7 L (20.0-40.0) % [place] % (Auto) 1.3 (0.0-10.0) % Eos % (Auto) 0.0 (0.0-4.0) % Baso % (Auto) 0.4 (0.0-2.0) % Neut # 23.4 H (1.8-7.0) K/uL Lymph # 2.3 (1.0-4.3) K/uL [place] # 0.3 (0.0-0.8) K/uL Eos # 0.0 (0.0-0.7) K/uL Baso # 0.1 (0.0-0.2) K/uL Neutrophils % (Manual) 26 L (50-75) % Band Neutrophils % 60 H* (0-2) % Lymphocytes % (Manual) 5 L (20-40) % Reactive Lymphs % 5 H (0-0) % Monocytes % (Manual) 3 (0-10) % Eosinophils % (Manual) (0-4) % Basophils % (Manual) (0-2) % Metamyelocytes % 1 H (0-0) % Differential Comment Toxic Granulation Dohle Bodies Platelet Estimate Decreased L (NORMAL) Basophilic Stippling Anisocytosis (manual) Carlos Cells Puncture Site pCO2 (35-45) mm/Hg pO2 (80-100) mm/Hg HCO3 (21-28) mmol/L ABG pH (7.35-7.45) ABG Total CO2 (22-28) mmol/L ABG O2 Saturation (95-98) % ABG Base Excess (-2.0-3.0) mmol/L ABG Hemoglobin (11.7-17.4) g/dL ABG Carboxyhemoglobin (0.5-1.5) % POC ABG HHb (Measured) (0.0-5.0) % ABG Methemoglobin (0.0-3.0) % Alek Test A-a O2 Difference mm/Hg Respiratory Index Hgb O2 Saturation (95.0-98.0) % Mechanical Rate FiO2 % Tidal Volume PEEP Sodium 143 144 (132-148) mmol/L Potassium 3.8 4.4 (3.6-5.2) mmol/L Chloride 112 H 114 H (98-107) mmol/L Carbon Dioxide 19 L 18 L (22-30) mmol/L Anion Gap 16 16 (10-20) BUN 12 12 (9-20) mg/dL Creatinine 1.2 1.2 (0.8-1.5) MG/DL Est GFR ( Amer) > 60 > 60 Est GFR (Non-Af Amer) 58 58 POC Glucose (mg/dL) 165 H (65-110) mg/dL Random Glucose 106 122 H (75-110) mg/dL Calcium 7.4 L 7.5 L (8.6-10.4) mg/dl Phosphorus 3.6 4.8 H (2.5-4.5) mg/dL Magnesium 2.1 2.2 (1.6-2.3) mg/dL Total Bilirubin (0.2-1.3) mg/dL AST (17-59) U/L ALT (21-72) U/L Alkaline Phosphatase (38-126) U/L Total Protein (6.3-8.3) g/dL Albumin (3.5-5.0) g/dL Globulin (2.2-3.9) gm/dL Albumin/Globulin Ratio (1.0-2.1) 06/15/16 06/15/16 06/15/16 Range/Units 17:53 14:44 12:37 WBC 22.7 H D (4.8-10.8) K/uL RBC 3.82 L (4.40-5.90) Mil/uL Hgb 11.3 L (12.0-18.0) g/dL Hct 33.7 L (35.0-51.0) % MCV 88.3 (80.0-94.0) fL MCH 29.7 (27.0-31.0) pg MCHC 33.6 (33.0-37.0) g/dL RDW 15.0 H (11.5-14.5) % Plt Count 88 L (130-400) K/uL MPV 9.4 (7.2-11.7) fL Neut % (Auto) (50.0-75.0) % Lymph % (Auto) (20.0-40.0) % [place] % (Auto) (0.0-10.0) % Eos % (Auto) (0.0-4.0) % Baso % (Auto) (0.0-2.0) % Neut # (1.8-7.0) K/uL Lymph # (1.0-4.3) K/uL [place] # (0.0-0.8) K/uL Eos # (0.0-0.7) K/uL Baso # (0.0-0.2) K/uL Neutrophils % (Manual) (50-75) % Band Neutrophils % (0-2) % Lymphocytes % (Manual) (20-40) % Reactive Lymphs % (0-0) % Monocytes % (Manual) (0-10) % Eosinophils % (Manual) (0-4) % Basophils % (Manual) (0-2) % Metamyelocytes % (0-0) % Differential Comment Toxic Granulation Dohle Bodies Platelet Estimate (NORMAL) Basophilic Stippling Anisocytosis (manual) Peacham Cells Puncture Site pCO2 (35-45) mm/Hg pO2 (80-100) mm/Hg HCO3 (21-28) mmol/L ABG pH (7.35-7.45) ABG Total CO2 (22-28) mmol/L ABG O2 Saturation (95-98) % ABG Base Excess (-2.0-3.0) mmol/L ABG Hemoglobin (11.7-17.4) g/dL ABG Carboxyhemoglobin (0.5-1.5) % POC ABG HHb (Measured) (0.0-5.0) % ABG Methemoglobin (0.0-3.0) % Alek Test A-a O2 Difference mm/Hg Respiratory Index Hgb O2 Saturation (95.0-98.0) % Mechanical Rate FiO2 % Tidal Volume PEEP Sodium (132-148) mmol/L Potassium (3.6-5.2) mmol/L Chloride (98-107) mmol/L Carbon Dioxide (22-30) mmol/L Anion Gap (10-20) BUN (9-20) mg/dL Creatinine (0.8-1.5) MG/DL Est GFR ( Amer) Est GFR (Non-Af Amer) POC Glucose (mg/dL) 135 H 151 H (65-110) mg/dL Random Glucose (75-110) mg/dL Calcium (8.6-10.4) mg/dl Phosphorus (2.5-4.5) mg/dL Magnesium (1.6-2.3) mg/dL Total Bilirubin (0.2-1.3) mg/dL AST (17-59) U/L ALT (21-72) U/L Alkaline Phosphatase (38-126) U/L Total Protein (6.3-8.3) g/dL Albumin (3.5-5.0) g/dL Globulin (2.2-3.9) gm/dL Albumin/Globulin Ratio (1.0-2.1) Laboratory Results - last 24 hr 06/15/16 06/15/16 06/15/16 12:37 14:44 17:53 WBC 22.7 H D RBC 3.82 L Hgb 11.3 L Hct 33.7 L MCV 88.3 MCH 29.7 MCHC 33.6 RDW 15.0 H Plt Count 88 L MPV 9.4 Neut % (Auto) Lymph % (Auto) [place] % (Auto) Eos % (Auto) Baso % (Auto) Neut # Lymph # [place] # Eos # Baso # Neutrophils % (Manual) Band Neutrophils % Lymphocytes % (Manual) Reactive Lymphs % Monocytes % (Manual) Eosinophils % (Manual) Basophils % (Manual) Metamyelocytes % Differential Comment Toxic Granulation Dohle Bodies Platelet Estimate Basophilic Stippling Anisocytosis (manual) Carlos Cells Puncture Site pCO2 pO2 HCO3 ABG pH ABG Total CO2 ABG O2 Saturation ABG Base Excess ABG Hemoglobin ABG Carboxyhemoglobin POC ABG HHb (Measured) ABG Methemoglobin Alek Test A-a O2 Difference Respiratory Index Hgb O2 Saturation Mechanical Rate FiO2 Tidal Volume PEEP Sodium Potassium Chloride Carbon Dioxide Anion Gap BUN Creatinine Est GFR ( Amer) Est GFR (Non-Af Amer) POC Glucose (mg/dL) 151 H 135 H Random Glucose Calcium Phosphorus Magnesium Total Bilirubin AST ALT Alkaline Phosphatase Total Protein Albumin Globulin Albumin/Globulin Ratio 06/15/16 06/15/16 06/15/16 18:09 23:24 23:43 WBC 26.1 H RBC 3.71 L Hgb 11.0 L Hct 33.0 L MCV 89.0 MCH 29.7 MCHC 33.4 RDW 15.4 H Plt Count 77 L MPV 10.2 Neut % (Auto) 89.6 H Lymph % (Auto) 8.7 L [place] % (Auto) 1.3 Eos % (Auto) 0.0 Baso % (Auto) 0.4 Neut # 23.4 H Lymph # 2.3 [place] # 0.3 Eos # 0.0 Baso # 0.1 Neutrophils % (Manual) 26 L Band Neutrophils % 60 H* Lymphocytes % (Manual) 5 L Reactive Lymphs % 5 H Monocytes % (Manual) 3 Eosinophils % (Manual) Basophils % (Manual) Metamyelocytes % 1 H Differential Comment Toxic Granulation Dohle Bodies Platelet Estimate Decreased L Basophilic Stippling Anisocytosis (manual) Carlos Cells Puncture Site pCO2 pO2 HCO3 ABG pH ABG Total CO2 ABG O2 Saturation ABG Base Excess ABG Hemoglobin ABG Carboxyhemoglobin POC ABG HHb (Measured) ABG Methemoglobin Alek Test A-a O2 Difference Respiratory Index Hgb O2 Saturation Mechanical Rate FiO2 Tidal Volume PEEP Sodium 144 143 Potassium 4.4 3.8 Chloride 114 H 112 H Carbon Dioxide 18 L 19 L Anion Gap 16 16 BUN 12 12 Creatinine 1.2 1.2 Est GFR ( Amer) > 60 > 60 Est GFR (Non-Af Amer) 58 58 POC Glucose (mg/dL) 165 H Random Glucose 122 H 106 Calcium 7.5 L 7.4 L Phosphorus 4.8 H 3.6 Magnesium 2.2 2.1 Total Bilirubin AST ALT Alkaline Phosphatase Total Protein Albumin Globulin Albumin/Globulin Ratio 06/16/16 06/16/16 06/16/16 06:40 07:24 08:33 WBC 26.0 H RBC 3.43 L Hgb 10.4 L Hct 31.0 L MCV 90.2 MCH 30.3 MCHC 33.5 RDW 15.8 H Plt Count 66 L MPV 10.0 Neut % (Auto) 89.4 H Lymph % (Auto) 7.4 L [place] % (Auto) 2.2 Eos % (Auto) 0.8 Baso % (Auto) 0.2 Neut # 23.2 H Lymph # 1.9 [place] # 0.6 Eos # 0.2 Baso # 0.0 Neutrophils % (Manual) 35 L Band Neutrophils % 60 H* Lymphocytes % (Manual) 2 L Reactive Lymphs % Monocytes % (Manual) 1 Eosinophils % (Manual) 1 Basophils % (Manual) 1 Metamyelocytes % Differential Comment Toxic Granulation Present Dohle Bodies Present Platelet Estimate Decreased L Basophilic Stippling Slight Anisocytosis (manual) Slight Carlos Cells Moderate Puncture Site A line pCO2 36 pO2 139 H HCO3 19.6 L ABG pH 7.32 L ABG Total CO2 19.6 L ABG O2 Saturation 99.1 H ABG Base Excess -6.9 L ABG Hemoglobin 9.9 L ABG Carboxyhemoglobin 1.1 POC ABG HHb (Measured) 0.9 ABG Methemoglobin 1.4 Alek Test Na A-a O2 Difference 244.0 Respiratory Index 1.8 Hgb O2 Saturation 96.6 Mechanical Rate 14 FiO2 60.0 Tidal Volume 500 PEEP 5 Sodium 146 Potassium 3.7 Chloride 110 H Carbon Dioxide 19 L Anion Gap 21 H BUN 14 Creatinine 1.2 Est GFR ( Amer) > 60 Est GFR (Non-Af Amer) 58 POC Glucose (mg/dL) 108 Random Glucose 91 Calcium 7.0 L Phosphorus Magnesium Total Bilirubin 0.8 AST 13 L D ALT 20 L Alkaline Phosphatase 55 Total Protein 4.1 L Albumin 2.1 L Globulin 2.1 L Albumin/Globulin Ratio 1.0 Fingerstick Blood Sugar Results: 115 Review of Systems - Review of Systems Systems not reviewed;Unavailable: Intubated Critical Care Progress Note - Nutrition Nutrition: Nutrition Category Date Time Status NPO Diet [DIET] Diets 06/14/16 Dinner Active Assessment/Plan - Assessment and Plan (Free Text) Assessment: 85 M with a past medical history of anemia, 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 Continued rectal bleeding, with episode of hematemesis on 06/14. Coded during GI bleeding scan. CTA showed active colonic bleeding. SMA embolization performed by IR. Currently, intubated and sedated. Plan: Neuro: Neurochecks q 6 Intubated Propofol for sedation Optho: Latanoprost OU HS LASHA Cardio: Levophed: 4mcg/min Vasopressin: 0.04 units/min 06/14 Code during Bleeding scan. Afib w. RVR. Vtach. ACLS, Shocked once, epi x 2. 06/16: Afib but improved rate. Pulm: Pt intubated and sedated Vent settings: Rate 14, TV 500, Peep: 5, FIO2: 60%, O2: 99% CXR (06/15): Diffuse confluent airspace opacities most prominent in right hilar and and lower lung zone as well as left hilar and lower zones. Suggestion of small left pleural effusion. Biapical pleural thickening with upper lobe granulomatous changes. CXR (06/16): Stable multifocal airway disease. No interval changes from prior studies. ABG: ph 7.32, pO2: 139, HCO3: 19.6, O2 sat: 99.1 on ventilation Endo: Diabetes Sliding scale - Novolog Accucheck q6 Maintain Euglycemia GI: 06/03 EGD: 2 cm hiatal hernia present. one large non-bleeding ulcer with clean ulcer base Class III found at duodenal bulb spanning duodenal sweep. improved compared to prior examination without any stigmata of recent bleeding. 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 Post-op diagnosis: marah esophagitis, duodenal ulcer, gastritis, hiatal hernia. 06/04 Colonoscopy: no active bleed, hemorrhoids, ulcerated mucosa at anastomosis site 06/05 GI Bleeding scan: findings suggestive of active GI bleeding likely at large bowel splenic flexure that extends to the descending colon. 06/06 Colonoscopy - per GI - 15 cc of epinephrine 0.1 mg/ml injections at ulcerated ileocolonic anastomotic site along with electro cautery for hemostasis. 06/14: Vomited derek blood twice. Large passage of blood rectally x 2. During bleeding scan coded, went in to Vtach. Vomiting dark blood during intubation. Required 4 units of blood, 2 FFP, 1 unit platelets. Angio showed active bleed in colon in branches of SMA supplying region of surgical kevan, embolization performed by IR. Surgery, Dr. Crane: OR for colectomy if pt bleeds again GI: Given O blood group, consider DDAVP infusion if pt rebleeds; No further endoscopies planned NPO diet : Monitor I/Os Renal: BUN/Cr: WNL Monitor I/Os Daily CMP Heme: Hgb 10.4, downtrended from 11.0 yesterday WBC: 26 today, elevated but stable from yesterday - recent elevation, possible aspiration PNA - Primaxin 500mg IV Q8H Daily CBC Ferrlecit 125mg IV daily (until 06/17) MSK: PT/OT eval deferred due to low Hgb ID: sacral wound WBC: 26 today, elevated but stable from yesterday; 60% bands - Primaxin 100mg/50 ml NS 50mls @ 100cc/hr - Diflucan 100mg/50 ml NS 50 cc @ 100 cc/hr for esophageal candiasis MRSA positive nares Daily CBC Palliative: Patient family consents to colectomy if pt bleeds again Prophylaxis: DVT: SCDs. VTE contraindicated bc of GI bleed GI: PPI IV daily
--- NOTE | 2016-06-16 11:24 | RAD ---
HISTORY: Intubated. Technique: Single view portable semi erect @ 07:05. COMPARISON: 06/15/2016. FINDINGS: LUNGS: Stable multi focal airspace disease. PLEURA: No significant pleural effusion identified, no pneumothorax apparent. CARDIOVASCULAR: Cardiomegaly. No evidence of acute, significant cardiovascular disease. OSSEOUS STRUCTURES: No significant abnormalities. VISUALIZED UPPER ABDOMEN: Normal. OTHER FINDINGS: Stable position of support apparatus including PICC line and endotracheal tube. IMPRESSION: No significant interval change compared to the prior examination(s).
--- NOTE | 2016-06-16 18:58 | CP.PCM.PN ---
Subjective - Date & Time of Evaluation Date of Evaluation: 06/16/16 Time of Evaluation: 16:00 - Subjective Subjective: clinically same Objective - Vital Signs/Intake and Output Vital Signs (last 24 hours): Temp Pulse Resp BP Pulse Ox 98.6 F 78 17 114/53 L 100 06/16/16 17:00 06/16/16 18:13 06/16/16 18:13 06/16/16 18:13 06/16/16 18:13 Intake and Output: 06/16/16 06/16/16 06:59 18:59 Intake Total 1032.4 1037.5 Output Total 700 215 Balance 332.4 822.5 - Medications Medications: Current Medications Albumin Human (Albumin Human 25% (12.5 Gm/50 Ml)) 12.5 gm IV Q12 LASHA Stop: 06/18/16 10:01 Last Admin: 06/16/16 10:36 Dose: 12.5 gm Ferric Sodium Gluconate Complex (Ferrlecit) 125 mg IVPB DAILY LASHA Stop: 06/17/16 10:31 Last Admin: 06/16/16 10:11 Dose: 125 mg Fluconazole (Diflucan Iv 100 Mg/50 Ml Ns) 50 mls @ 100 mls/hr IVPB DAILY [facility] Last Admin: 06/16/16 10:10 Dose: 100 mls/hr Lactated Ringer's (Lactated Ringer's) 1,000 mls @ 50 mls/hr IV .Q20H LASHA Last Admin: 06/16/16 16:57 Dose: 50 mls/hr Propofol (Diprivan) 100 mls @ 2.443 mls/hr IV .Q24H PRN; Protocol; 5 MCG/KG/MIN PRN Reason: TITRATE PER MD ORDER Last Titration: 06/16/16 14:00 Dose: 16.58 mcg/kg/min Vasopressin 40 units/ Sodium (Chloride) 40 mls @ 2.4 mls/hr IV .[id number] LASHA PRN Reason: 0.04 UNITS/MIN Last Admin: 06/16/16 16:58 Dose: 2.4 mls/hr Norepinephrine Bitartrate 16 (mg/ Sodium Chloride) 266 mls @ 3.99 mls/hr IV .Q24H PRN; Protocol; 4 MCG/MIN PRN Reason: TITRATE PER MD ORDER Last Admin: 06/16/16 16:53 Dose: 15 mls/hr Imipenem/Cilastatin Sodium 500 (mg/ Sodium Chloride) 100 mls @ 100 mls/hr IVPB Q8H [facility] Last Admin: 06/16/16 16:52 Dose: 100 mls/hr Latanoprost (Xalatan Opht) 0 ml OU HS [facility] Last Admin: 06/15/16 23:00 Dose: 2.5 ml Pantoprazole Sodium (Protonix Inj) 40 mg IVP DAILY [facility] Last Admin: 06/16/16 10:12 Dose: 40 mg - Labs Labs: 06/16/16 06:40 06/16/16 06:40 PT 13.4 SECONDS (9.7-12.2) H 06/14/16 20:34 INR 1.2 06/14/16 20:34 APTT 45 SECONDS (21-34) H D 06/14/16 20:34 - Constitutional Appears: Well - Head Exam Head Exam: ATRAUMATIC, NORMAL INSPECTION, NORMOCEPHALIC - Eye Exam Eye Exam: EOMI, Normal appearance, PERRL Pupil Exam: NORMAL ACCOMODATION, PERRL - ENT Exam ENT Exam: Mucous Membranes Moist, Normal Exam - Neck Exam Neck Exam: Full ROM, Normal Inspection. absent: Lymphadenopathy - Respiratory Exam Respiratory Exam: Decreased Breath Sounds - Cardiovascular Exam Cardiovascular Exam: REGULAR RHYTHM, +S1, +S2 - GI/Abdominal Exam GI & Abdominal Exam: Soft, Diminished Bowel Sounds - Rectal Exam Rectal Exam: Deferred Assessment and Plan (1) Acute renal failure Status: Acute (2) Anemia Status: Acute (3) BPH (benign prostatic hyperplasia) Status: Acute (4) Bilateral edema of lower extremity Status: Acute (5) DVT prophylaxis Status: Acute (6) Dry gangrene Status: Acute (7) Gastrointestinal hemorrhage Status: Acute (8) Hypochromic microcytic anemia Status: Acute (9) Hypovolemic shock Status: Acute (10) Memory difficulty Status: Acute (11) Paresthesia of both lower extremities Status: Acute (12) Pneumonia Status: Acute (13) CHF (congestive heart failure) Status: Chronic (14) Diabetes mellitus Status: Chronic - Assessment and Plan (Free Text) Plan: f/u with GI f/u with 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
[2016-06-16] MEDS: Latanoprost 2.5 ml Opht Soln OU SCH (22:10)
[2016-06-17] MEDS: Lactated Ringer's 1,000 ML IV SCH (02:24)
[2016-06-17 05:37] LABS: ABG MECHANICAL RATE 14; ARTERIAL BLOOD HGB O2 SAT 97.3 % (95.0-98.0); ATERIAL BLOOD GAS PEEP 5; CARBOXYHEMOGLOBIN 1.5 % (0.5-1.5); DRAW SITE ALINE; HHB 0.4 % (0.0-5.0); METHEMOGLOBIN 0.9 % (0.0-3.0)
[2016-06-17 06:30] LABS: BASO % 0.1 % (0.0-2.0); EOS # 0.2 K/uL (0.0-0.7); EOS % 0.7 % (0.0-4.0); HEMATOCRIT 28.8 % (35.0-51.0); LYMPH # 1.2 K/uL (1.0-4.3); LYMPH % 4.3 % (20.0-40.0); MEAN CELL VOLUME 90.6 fL (80.0-94.0); MEAN CORPUSCULAR HEMOGLOBIN 29.7 pg (27.0-31.0); MEAN CORPUSCULAR HGB CONC 32.8 g/dL (33.0-37.0); MEAN PLATELET VOLUME 9.8 fL (7.2-11.7); MONO # 0.4 K/uL (0.0-0.8); MONO % 1.5 % (0.0-10.0); PLATELET COUNT 69 K/uL (130-400); RED CELL DISTRIBUTION WIDTH 16.2 % (11.5-14.5); WHITE BLOOD COUNT 27.8 K/uL (4.8-10.8)
[2016-06-17 06:34] LABS: POTASSIUM 3.3 mmol/L (3.6-5.2)
[2016-06-17 06:36] LABS: BILIRUBIN,TOTAL 1.3 mg/dL (0.2-1.3)
[2016-06-17 06:37] LABS: CALCIUM 6.9 mg/dl (8.6-10.4); PHOSPHOROUS 3.5 mg/dL (2.5-4.5); TOTAL PROTEIN 4.3 g/dL (6.3-8.3)
[2016-06-17 08:26] LABS: NEUTROPHIL 47 % (50-75); TOTAL CELLS COUNTED 100
--- NOTE | 2016-06-17 08:28 | RAD ---
HISTORY: intubated COMPARISON: 06/16/2016 FINDINGS: LUNGS: Lines and tubes stable position. Worsening now severe venous congestion with confluent airspace opacification in the right hilar region and bilateral lung bases. Question bilateral pleural effusions. PLEURA: As above. CARDIOVASCULAR: Status post median sternotomy and CABG. OSSEOUS STRUCTURES: No significant abnormalities. VISUALIZED UPPER ABDOMEN: Normal. OTHER FINDINGS: None. IMPRESSION: Lines and tubes stable position. Worsening now severe venous congestion with confluent airspace opacification in the right hilar region and bilateral lung bases. Question bilateral pleural effusions.
--- NOTE | 2016-06-17 09:27 | CP.PCM.PN ---
<Eileen Arce - Last Filed: 06/17/16 09:51> Subjective - Date & Time of Evaluation Date of Evaluation: 06/17/16 Time of Evaluation: 08:00 - Subjective Subjective: General Surgery Dr. Crane Pt S&E @bedside. NAEO. intubated and sedated. (+) BM, brown w/ black streaking. Vent settings: 14, 500, 5, 50%, Sating 95% NGT 10cc x24hrs Objective - Vital Signs/Intake and Output Vital Signs (last 24 hours): Temp Pulse Resp BP Pulse Ox 97.8 F 71 15 107/40 L 100 06/17/16 08:00 06/17/16 09:13 06/17/16 09:13 06/17/16 09:13 06/17/16 09:13 Intake and Output: 06/17/16 06/17/16 06:59 18:59 Intake Total 954.0 212.4 Output Total 230 35 Balance 724.0 177.4 - Medications Medications: Current Medications Albumin Human (Albumin Human 25% (12.5 Gm/50 Ml)) 12.5 gm IV Q12 [facility] Stop: 06/18/16 10:01 Last Admin: 06/16/16 22:10 Dose: 12.5 gm Ferric Sodium Gluconate Complex (Ferrlecit) 125 mg IVPB DAILY [facility] Stop: 06/17/16 10:31 Last Admin: 06/16/16 10:11 Dose: 125 mg Fluconazole (Diflucan Iv 100 Mg/50 Ml Ns) 50 mls @ 100 mls/hr IVPB DAILY [facility] Last Admin: 06/16/16 10:10 Dose: 100 mls/hr Lactated Ringer's (Lactated Ringer's) 1,000 mls @ 50 mls/hr IV .Q20H [facility] Last Admin: 06/17/16 02:24 Dose: Not Given Propofol (Diprivan) 100 mls @ 2.443 mls/hr IV .Q24H PRN; Protocol; 5 MCG/KG/MIN PRN Reason: TITRATE PER MD ORDER Last Admin: 06/17/16 02:23 Dose: 8.1 mls/hr Vasopressin 40 units/ Sodium (Chloride) 40 mls @ 2.4 mls/hr IV .[id number] [facility] PRN Reason: 0.04 UNITS/MIN Last Admin: 06/17/16 08:21 Dose: 2.4 mls/hr Norepinephrine Bitartrate 16 (mg/ Sodium Chloride) 266 mls @ 3.99 mls/hr IV .Q24H PRN; Protocol; 4 MCG/MIN PRN Reason: TITRATE PER MD ORDER Last Titration: 06/17/16 05:52 Dose: 13.03 mcg/min Imipenem/Cilastatin Sodium 500 (mg/ Sodium Chloride) 100 mls @ 100 mls/hr IVPB Q8H [facility] Last Admin: 06/17/16 00:33 Dose: 100 mls/hr Latanoprost (Xalatan Opht) 0 ml OU HS [facility] Last Admin: 06/16/16 22:10 Dose: 2.5 ml Pantoprazole Sodium (Protonix Inj) 40 mg IVP DAILY [facility] Last Admin: 06/16/16 10:12 Dose: 40 mg - Labs Labs: 06/17/16 06:15 06/17/16 06:15 Laboratory Tests 06/17/16 06:15 Calcium 6.9 L Phosphorus 3.5 Magnesium 2.0 Total Bilirubin 1.3 AST 13 L ALT 22 Alkaline Phosphatase 70 Total Protein 4.3 L Albumin 2.2 L Microbiology 06/16/16 05:30 Blood Gram Stain - Final 06/16/16 06:00 Blood Blood Culture - Preliminary 06/16/16 06:00 Blood NO GROWTH AFTER 24 HOURS 06/16/16 05:30 Blood Blood Culture - Preliminary 06/16/16 05:30 Blood Gram Negative Adalberto 06/16/16 01:16 Urine,Cardenas Urine Culture - Preliminary Gram Negative Adalberto - Constitutional Appears: Non-toxic, No Acute Distress - Head Exam Head Exam: NORMAL INSPECTION - Eye Exam Eye Exam: Normal appearance - ENT Exam ENT Exam: Mucous Membranes Moist - Respiratory Exam Respiratory Exam: NORMAL BREATHING PATTERN. absent: Accessory Muscle Use, Respiratory Distress - Cardiovascular Exam Cardiovascular Exam: REGULAR RHYTHM. absent: Bradycardia, Tachycardia - GI/Abdominal Exam GI & Abdominal Exam: Soft. 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 Rosa Maria Arce PGY1 <Erasmo Crane - Last Filed: 06/17/16 21:26> Objective - Vital Signs/Intake and Output Vital Signs (last 24 hours): Temp Pulse Resp BP Pulse Ox 99.4 F 76 15 140/49 L 99 06/17/16 17:00 06/17/16 19:13 06/17/16 19:13 06/17/16 19:13 06/17/16 19:13 Intake and Output: 06/17/16 06/18/16 18:59 06:59 Intake Total 991.4 65.4 Output Total 165 40 Balance 826.4 25.4 - Medications Medications: Current Medications Albumin Human (Albumin Human 25% (12.5 Gm/50 Ml)) 12.5 gm IV Q12 [facility] Stop: 06/18/16 10:01 Last Admin: 06/17/16 13:29 Dose: 12.5 gm Fluconazole (Diflucan Iv 100 Mg/50 Ml Ns) 50 mls @ 100 mls/hr IVPB DAILY [facility] Last Admin: 06/17/16 12:42 Dose: 100 mls/hr Propofol (Diprivan) 100 mls @ 2.443 mls/hr IV .Q24H PRN; Protocol; 5 MCG/KG/MIN PRN Reason: TITRATE PER MD ORDER Last Titration: 06/17/16 08:30 Dose: 0 mcg/kg/min Vasopressin 40 units/ Sodium (Chloride) 40 mls @ 2.4 mls/hr IV .[id number] [facility] PRN Reason: 0.04 UNITS/MIN Last Admin: 06/17/16 08:21 Dose: 2.4 mls/hr Norepinephrine Bitartrate 16 (mg/ Sodium Chloride) 266 mls @ 3.99 mls/hr IV .Q24H PRN; Protocol; 4 MCG/MIN PRN Reason: TITRATE PER MD ORDER Last Titration: 06/17/16 13:00 Dose: 13 mcg/min Imipenem/Cilastatin Sodium 500 (mg/ Sodium Chloride) 100 mls @ 100 mls/hr IVPB Q8H [facility] Last Admin: 06/17/16 17:39 Dose: 100 mls/hr Sodium Bicarbonate 100 meq/ (Sodium Chloride) 1,000 mls @ 50 mls/hr IV .Q20H [facility] Last Admin: 06/17/16 11:07 Dose: 50 mls/hr Latanoprost (Xalatan Opht) 0 ml OU HS [facility] Last Admin: 06/16/16 22:10 Dose: 2.5 ml Pantoprazole Sodium (Protonix Inj) 40 mg IVP DAILY [facility] Last Admin: 06/17/16 12:00 Dose: 40 mg - Labs Labs: 06/17/16 12:33 06/17/16 06:15 PT 13.4 SECONDS (9.7-12.2) H 06/14/16 20:34 INR 1.2 06/14/16 20:34 APTT 45 SECONDS (21-34) H D 06/14/16 20:34 Attending/Attestation - Attestation I have personally seen and examined this patient.: Yes I have fully participated in the care of the patient.: Yes I have reviewed all pertinent clinical information, including history, physical exam and plan: Yes Notes (Text): 06/17/16 21:24 Pt was seen and examined at bedside on 06/17/2016 Agree with above note and assessment Continue with current mx If pt continue to have drop in Hb, Pt would need Subtotal colectomy. Plan d.w PMD and ICU attending in detail.
[2016-06-17] MEDS ORDERED: Potassium Chloride 20 mEq 100 ML IVPB ONE (09:37)
--- NOTE | 2016-06-17 10:29 | CP.CCUPN ---
<Leobardo Meneses - Last Filed: 06/17/16 16:38> CCU Subjective - Physician Review Subjective (Free Text): 06/17/16 13:52 Pt seen and examined at bedside. Nursing reports black streaking in most recent BM overnight. Pt being weaned from intubation. Pt not following commands, and appears somnolent. Currently on Levophed 10 mcg/min, vasopressin was discontinued. FIO2 decreased to 50%. Hemoglobin down-trended today to 9.5. Will follow afternoon CBC. Unable to obtain ROS at this time due to pt condition. Critical Care Time Spent (in minutes): 40 CCU Objective - Vital Signs / Intake & Output Vital Signs (Last 4 hours): Vital Signs Temp Pulse Resp BP Pulse Ox 06/17/16 09:13 71 15 107/40 L 100 06/17/16 09:00 72 14 100 06/17/16 08:21 71 15 112/45 L 100 06/17/16 08:13 70 15 105/33 L 95 06/17/16 08:00 97.8 F 73 14 104/38 L 94 L 06/17/16 07:13 71 14 127/56 L 100 06/17/16 07:10 71 14 100 06/17/16 07:00 73 16 100 06/17/16 06:29 71 15 100 Intake and Output (Last 8hrs): Intake & Output 06/16/16 06/17/16 06/17/16 22:59 06:59 14:59 Intake Total 654.0 652.0 321.8 Output Total 440 165 50 Balance 214.0 487.0 271.8 Weight 184 lb Intake: Intake, IV Amount 654.0 652.0 321.8 Right Distal Port PICC 64.8 64.8 16.2 Right Medial Port PICC 120 118 48.4 Right External Jugular 450 450 250 Right Arm 19.2 19.2 7.2 Output: Gastric Amount 300 50 10 Stomach 300 50 10 Urine 140 115 40 Urethral (Cardenas) 140 115 40 Emesis 0 Other: # Bowel Movements 1 1 0 - Physical Exam Physical Exam Limitations: Positive for: Altered Mental Status, Clinical Condition Head: Positive for: Atraumatic, Normocephalic. Negative for: Swelling Pupils: Positive for: PERRL Extroacular Muscles: Positive for: EOMI Conjunctiva: Positive for: Normal Mouth: Positive for: Dry Neck: Positive for: Normal Range of Motion Respiratory/Chest: Positive for: Good Air Exchange, Rhonchi (scattered throughout lung rey). Negative for: Wheezes Cardiovascular: Positive for: Normal S1, S2 Abdomen: Positive for: Tenderness, Distention (remains minimal), Normal Bowel Sounds. Negative for: Peritoneal Signs Back: Positive for: Normal Inspection Upper Extremity: Positive for: Normal Inspection Lower Extremity: Positive for: Edema (trace pedal edema) Neurological: Positive for: Other (AMS) Skin: Positive for: Warm, Dry Psychiatric: Positive for: Alert, Lethargic. Negative for: Oriented x 3 - Medications Active Medications: Active Medications Generic Name Dose Route Start Last Admin Trade Name Freq PRN Reason Stop Dose Admin Albumin Human 12.5 gm 06/16/16 10:00 06/16/16 22:10 Albumin Human 25% (12.5 Gm/50 Ml) IV 06/18/16 10:01 12.5 gm Q12 LASHA Administration Ferric Sodium Gluconate Complex 125 mg 06/09/16 10:30 06/16/16 10:11 Ferrlecit IVPB 06/17/16 10:31 125 mg DAILY LASHA Administration Fluconazole 50 mls @ 100 mls/hr 06/04/16 10:00 06/16/16 10:10 Diflucan Iv 100 Mg/50 Ml Ns IVPB 100 mls/hr DAILY LASHA Administration Propofol 100 mls @ 2.443 mls/hr 06/15/16 10:18 06/17/16 02:23 Diprivan IV 8.1 mls/hr .Q24H PRN Administration TITRATE PER MD ORDER Protocol 5 MCG/KG/MIN Vasopressin 40 units/ Sodium 40 mls @ 2.4 mls/hr 06/15/16 10:30 06/17/16 08:21 Chloride IV 2.4 mls/hr .[id number] LASHA Administration 0.04 UNITS/MIN Norepinephrine Bitartrate 16 266 mls @ 3.99 mls/hr 06/15/16 10:25 06/17/16 09: 00 mg/ Sodium Chloride IV 10 mcg/min .Q24H PRN Titration TITRATE PER MD ORDER Protocol 4 MCG/MIN Imipenem/Cilastatin Sodium 500 100 mls @ 100 mls/hr 06/15/16 17:00 06/17/16 09: 41 mg/ Sodium Chloride IVPB 100 mls/hr Q8H LASHA Administration Sodium Bicarbonate 100 meq/ 1,000 mls @ 50 mls/hr 06/17/16 09:45 Sodium Chloride IV .Q20H LASHA Potassium Chloride 100 mls @ 50 mls/hr 06/17/16 09:37 Potassium Chloride 20 Meq/100 Ml IVPB 06/17/16 11:36 ONCE ONE Latanoprost 0 ml 05/22/16 22:00 06/16/16 22:10 Xalatan Opht OU 2.5 ml HS LASHA Administration Pantoprazole Sodium 40 mg 06/11/16 10:00 06/16/16 10:12 Protonix Inj IVP 40 mg DAILY LASHA Administration - Patient Studies Lab Studies: Microbiology Studies 06/16/16 06:00 Blood Culture - Preliminary Blood Gram Negative Adalberto Gram Stain - Final 06/16/16 01:16 Urine Culture - Preliminary Urine,Cardenas Gram Negative Adalberto 06/16/16 05:30 Blood Culture - Preliminary Blood Gram Negative Adalberto Gram Stain - Final Lab Studies 06/17/16 06/17/16 06/17/16 Range/Units 06:15 05:38 05:28 WBC 27.8 H (4.8-10.8) K/uL RBC 3.18 L (4.40-5.90) Mil/uL Hgb 9.5 L (12.0-18.0) g/dL Hct 28.8 L (35.0-51.0) % MCV 90.6 (80.0-94.0) fL MCH 29.7 (27.0-31.0) pg MCHC 32.8 L (33.0-37.0) g/dL RDW 16.2 H (11.5-14.5) % Plt Count 69 L (130-400) K/uL MPV 9.8 (7.2-11.7) fL Neut % (Auto) 93.4 H (50.0-75.0) % Lymph % (Auto) 4.3 L (20.0-40.0) % Hood % (Auto) 1.5 (0.0-10.0) % Eos % (Auto) 0.7 (0.0-4.0) % Baso % (Auto) 0.1 (0.0-2.0) % Neut # 26.0 H (1.8-7.0) K/uL Lymph # 1.2 (1.0-4.3) K/uL Hood # 0.4 (0.0-0.8) K/uL Eos # 0.2 (0.0-0.7) K/uL Baso # 0.0 (0.0-0.2) K/uL Neutrophils % (Manual) 47 L (50-75) % Band Neutrophils % 46 H* (0-2) % Lymphocytes % (Manual) 4 L (20-40) % Monocytes % (Manual) 3 (0-10) % Platelet Estimate Decreased L (NORMAL) Polychromasia Slight Anisocytosis (manual) Slight Tear Drop Cells Slight [place] Cells Slight Puncture Site [place] pCO2 35 (35-45) mm/Hg pO2 111 H (80-100) mm/Hg HCO3 19.6 L (21-28) mmol/L ABG pH 7.33 L (7.35-7.45) ABG Total CO2 19.6 L (22-28) mmol/L ABG O2 Saturation 99.6 H (95-98) % ABG Base Excess -6.8 L (-2.0-3.0) mmol/L ABG Hemoglobin 9.2 L (11.7-17.4) g/dL ABG Carboxyhemoglobin 1.5 (0.5-1.5) % POC ABG HHb (Measured) 0.4 (0.0-5.0) % ABG Methemoglobin 0.9 (0.0-3.0) % Alek Test Na A-a O2 Difference 202.0 mm/Hg Respiratory Index 1.8 Hgb O2 Saturation 97.3 (95.0-98.0) % Mechanical Rate 14 FiO2 50.0 % Tidal Volume 500 PEEP 5 Sodium 145 (132-148) mmol/L Potassium 3.3 L (3.6-5.2) mmol/L Chloride 116 H (98-107) mmol/L Carbon Dioxide 15 L (22-30) mmol/L Anion Gap 17 (10-20) BUN 16 (9-20) mg/dL Creatinine 1.4 (0.8-1.5) MG/DL Est GFR ( Amer) 58 Est GFR (Non-Af Amer) 48 POC Glucose (mg/dL) 95 (65-110) mg/dL Random Glucose 89 (75-110) mg/dL Calcium 6.9 L (8.6-10.4) mg/dl Phosphorus 3.5 (2.5-4.5) mg/dL Magnesium 2.0 (1.6-2.3) mg/dL Total Bilirubin 1.3 (0.2-1.3) mg/dL AST 13 L (17-59) U/L ALT 22 (21-72) U/L Alkaline Phosphatase 70 (38-126) U/L Total Protein 4.3 L (6.3-8.3) g/dL Albumin 2.2 L (3.5-5.0) g/dL Globulin 2.1 L (2.2-3.9) gm/dL Albumin/Globulin Ratio 1.0 (1.0-2.1) 06/16/16 06/16/16 06/16/16 Range/Units 23:27 17:46 11:59 WBC (4.8-10.8) K/uL RBC (4.40-5.90) Mil/uL Hgb (12.0-18.0) g/dL Hct (35.0-51.0) % MCV (80.0-94.0) fL MCH (27.0-31.0) pg MCHC (33.0-37.0) g/dL RDW (11.5-14.5) % Plt Count (130-400) K/uL MPV (7.2-11.7) fL Neut % (Auto) (50.0-75.0) % Lymph % (Auto) (20.0-40.0) % Hood % (Auto) (0.0-10.0) % Eos % (Auto) (0.0-4.0) % Baso % (Auto) (0.0-2.0) % Neut # (1.8-7.0) K/uL Lymph # (1.0-4.3) K/uL Hood # (0.0-0.8) K/uL Eos # (0.0-0.7) K/uL Baso # (0.0-0.2) K/uL Neutrophils % (Manual) (50-75) % Band Neutrophils % (0-2) % Lymphocytes % (Manual) (20-40) % Monocytes % (Manual) (0-10) % Platelet Estimate (NORMAL) Polychromasia Anisocytosis (manual) Tear Drop Cells [place] Cells Puncture Site pCO2 (35-45) mm/Hg pO2 (80-100) mm/Hg HCO3 (21-28) mmol/L ABG pH (7.35-7.45) ABG Total CO2 (22-28) mmol/L ABG O2 Saturation (95-98) % ABG Base Excess (-2.0-3.0) mmol/L ABG Hemoglobin (11.7-17.4) g/dL ABG Carboxyhemoglobin (0.5-1.5) % POC ABG HHb (Measured) (0.0-5.0) % ABG Methemoglobin (0.0-3.0) % Alek Test A-a O2 Difference mm/Hg Respiratory Index Hgb O2 Saturation (95.0-98.0) % Mechanical Rate FiO2 % Tidal Volume PEEP Sodium (132-148) mmol/L Potassium (3.6-5.2) mmol/L Chloride (98-107) mmol/L Carbon Dioxide (22-30) mmol/L Anion Gap (10-20) BUN (9-20) mg/dL Creatinine (0.8-1.5) MG/DL Est GFR ( Amer) Est GFR (Non-Af Amer) POC Glucose (mg/dL) 110 107 111 H (65-110) mg/dL Random Glucose (75-110) mg/dL Calcium (8.6-10.4) mg/dl Phosphorus (2.5-4.5) mg/dL Magnesium (1.6-2.3) mg/dL Total Bilirubin (0.2-1.3) mg/dL AST (17-59) U/L ALT (21-72) U/L Alkaline Phosphatase (38-126) U/L Total Protein (6.3-8.3) g/dL Albumin (3.5-5.0) g/dL Globulin (2.2-3.9) gm/dL Albumin/Globulin Ratio (1.0-2.1) Laboratory Results - last 24 hr 06/16/16 06/16/16 06/16/16 11:59 17:46 23:27 WBC RBC Hgb Hct MCV MCH MCHC RDW Plt Count MPV Neut % (Auto) Lymph % (Auto) Hood % (Auto) Eos % (Auto) Baso % (Auto) Neut # Lymph # Hood # Eos # Baso # Neutrophils % (Manual) Band Neutrophils % Lymphocytes % (Manual) Monocytes % (Manual) Platelet Estimate Polychromasia Anisocytosis (manual) Tear Drop Cells [place] Cells Puncture Site pCO2 pO2 HCO3 ABG pH ABG Total CO2 ABG O2 Saturation ABG Base Excess ABG Hemoglobin ABG Carboxyhemoglobin POC ABG HHb (Measured) ABG Methemoglobin Alek Test A-a O2 Difference Respiratory Index Hgb O2 Saturation Mechanical Rate FiO2 Tidal Volume PEEP Sodium Potassium Chloride Carbon Dioxide Anion Gap BUN Creatinine Est GFR ( Amer) Est GFR (Non-Af Amer) POC Glucose (mg/dL) 111 H 107 110 Random Glucose Calcium Phosphorus Magnesium Total Bilirubin AST ALT Alkaline Phosphatase Total Protein Albumin Globulin Albumin/Globulin Ratio 06/17/16 06/17/16 06/17/16 05:28 05:38 06:15 WBC 27.8 H RBC 3.18 L Hgb 9.5 L Hct 28.8 L MCV 90.6 MCH 29.7 MCHC 32.8 L RDW 16.2 H Plt Count 69 L MPV 9.8 Neut % (Auto) 93.4 H Lymph % (Auto) 4.3 L Hood % (Auto) 1.5 Eos % (Auto) 0.7 Baso % (Auto) 0.1 Neut # 26.0 H Lymph # 1.2 Hood # 0.4 Eos # 0.2 Baso # 0.0 Neutrophils % (Manual) 47 L Band Neutrophils % 46 H* Lymphocytes % (Manual) 4 L Monocytes % (Manual) 3 Platelet Estimate Decreased L Polychromasia Slight Anisocytosis (manual) Slight Tear Drop Cells Slight Carlos Cells Slight Puncture Site [place] pCO2 35 pO2 111 H HCO3 19.6 L ABG pH 7.33 L ABG Total CO2 19.6 L ABG O2 Saturation 99.6 H ABG Base Excess -6.8 L ABG Hemoglobin 9.2 L ABG Carboxyhemoglobin 1.5 POC ABG HHb (Measured) 0.4 ABG Methemoglobin 0.9 Alek Test Na A-a O2 Difference 202.0 Respiratory Index 1.8 Hgb O2 Saturation 97.3 Mechanical Rate 14 FiO2 50.0 Tidal Volume 500 PEEP 5 Sodium 145 Potassium 3.3 L Chloride 116 H Carbon Dioxide 15 L Anion Gap 17 BUN 16 Creatinine 1.4 Est GFR ( Amer) 58 Est GFR (Non-Af Amer) 48 POC Glucose (mg/dL) 95 Random Glucose 89 Calcium 6.9 L Phosphorus 3.5 Magnesium 2.0 Total Bilirubin 1.3 AST 13 L ALT 22 Alkaline Phosphatase 70 Total Protein 4.3 L Albumin 2.2 L Globulin 2.1 L Albumin/Globulin Ratio 1.0 Fingerstick Blood Sugar Results: 115 Review of Systems - Review of Systems Systems not reviewed;Unavailable: Altered Mental Status Critical Care Progress Note - Nutrition Nutrition: Nutrition Category Date Time Status NPO Diet [DIET] Diets 06/14/16 Dinner Active Assessment/Plan - Assessment and Plan (Free Text) Assessment: 85 M with a past medical history of anemia, [place] complicated by CAD s/p 3 vessel CABG, moderate aortic stenosis, hypertension, hyperlipidemia presented with hypotension, weakness, and blood in the stool 05/22. Continued rectal bleeding, with episode of hematemesis on 06/14. Coded during GI bleeding scan. CTA showed active colonic bleeding. SMA embolization performed by IR. Currently, intubated and sedated. Plan: Neuro: Neurochecks q 6 Intubated, to be weaned off Propofol for sedation Optho: Latanoprost OU HS LASHA Cardio: Levophed: 10 mcg/min Vasopressin: discontinued 06/14 Code during Bleeding scan. Afib w. RVR. Vtach. ACLS, Shocked once, epi x 2. 06/17: Afib but improved rate. Pulm: Pt intubated and sedated, to be weaned Vent settings: Rate 14, TV 500, Peep: 5, FIO2: 50%, O2: 95% ABG: ph 7.33, pO2: 111, HCO3: 19.6, O2 sat: 99.6 on ventilation -Start bicarb drip CXR (06/17): Worsening severe venous congestion with airspace opacification in right hilar region and bilateral lung bases. Questionable bilateral pleural effusion. (see full report). Endo: Diabetes Sliding scale - Novolog Accucheck q6 Maintain Euglycemia GI: 06/03 EGD: 2 cm hiatal hernia present. one large non-bleeding ulcer with clean ulcer base Class III found at duodenal bulb spanning duodenal sweep. improved compared to prior examination without any stigmata of recent bleeding. 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 Post-op diagnosis: marah esophagitis, duodenal ulcer, gastritis, hiatal hernia. 06/04 Colonoscopy: no active bleed, hemorrhoids, ulcerated mucosa at anastomosis site 06/05 GI Bleeding scan: findings suggestive of active GI bleeding likely at large bowel splenic flexure that extends to the descending colon. 06/06 Colonoscopy - per GI - 15 cc of epinephrine 0.1 mg/ml injections at ulcerated ileocolonic anastomotic site along with electro cautery for hemostasis. 06/14: Vomited derek blood twice. Large passage of blood rectally x 2. During bleeding scan coded, went in to Vtach. Vomiting dark blood during intubation. Required 4 units of blood, 2 FFP, 1 unit platelets. Angio showed active bleed in colon in branches of SMA supplying region of surgical kevan, embolization performed by IR. 06/16: No derek blood, but black streaking noted on morning BM. Surgery, Dr. Crane: OR for colectomy if pt bleeds again GI: Given O blood group, consider DDAVP infusion if pt rebleeds; No further endoscopies planned NPO diet : Monitor I/Os Renal: BUN/Cr: WNL Monitor I/Os Daily CMP Heme: Hgb 9.5, downtrended from 10.4 yesterday - f/u PM CBC Daily CBC Ferrlecit course completed today MSK: PT/OT eval deferred due to low Hgb ID: sacral wound WBC: 29.2 today, elevated but stable from yesterday - recent elevation, possible aspiration PNA - Primaxin 500mg IV Q8H - Diflucan 100mg/50 ml NS 50 cc @ 100 cc/hr for esophageal candiasis - Blood cx (06/16): Gram negative adalberto x 2 - Urine Cx (06/16): Gram negative adalberto MRSA positive nares Daily CBC Palliative: Patient family consents to colectomy if pt bleeds again Prophylaxis: DVT: SCDs. VTE contraindicated bc of GI bleed GI: PPI IV daily <Tobi Laguna - Last Filed: 06/17/16 17:05> CCU Objective - Vital Signs / Intake & Output Vital Signs (Last 4 hours): Vital Signs Pulse Resp BP Pulse Ox 06/17/16 14:13 73 16 123/35 L 100 06/17/16 14:00 79 19 100 06/17/16 13:13 71 15 108/48 L 100 Intake and Output (Last 8hrs): Intake & Output 06/17/16 06/17/16 06/17/16 06:59 14:59 22:59 Intake Total 652.0 621.8 Output Total 165 120 Balance 487.0 501.8 Weight 184 lb Intake: Intake, IV Amount 652.0 621.8 Right Distal Port PICC 64.8 16.2 Right Medial Port PICC 118 48.4 Right External Jugular 450 550 Right Arm 19.2 7.2 Output: Gastric Amount 50 10 Stomach 50 10 Urine 115 110 Urethral (Cardenas) 115 110 Emesis 0 Other: # Bowel Movements 1 0 - Medications Active Medications: Active Medications Generic Name Dose Route Start Last Admin Trade Name Freq PRN Reason Stop Dose Admin Albumin Human 12.5 gm 06/16/16 10:00 06/17/16 13:29 Albumin Human 25% (12.5 Gm/50 Ml) IV 06/18/16 10:01 12.5 gm Q12 LASHA Administration Fluconazole 50 mls @ 100 mls/hr 06/04/16 10:00 06/17/16 12:42 Diflucan Iv 100 Mg/50 Ml Ns IVPB 100 mls/hr DAILY LASHA Administration Propofol 100 mls @ 2.443 mls/hr 06/15/16 10:18 06/17/16 02:23 Diprivan IV 8.1 mls/hr .Q24H PRN Administration TITRATE PER MD ORDER Protocol 5 MCG/KG/MIN Vasopressin 40 units/ Sodium 40 mls @ 2.4 mls/hr 06/15/16 10:30 06/17/16 08:21 Chloride IV 2.4 mls/hr .[id number] LASHA Administration 0.04 UNITS/MIN Norepinephrine Bitartrate 16 266 mls @ 3.99 mls/hr 06/15/16 10:25 06/17/16 12: 27 mg/ Sodium Chloride IV 9.97 mls/hr .Q24H PRN Administration TITRATE PER MD ORDER Protocol 4 MCG/MIN Imipenem/Cilastatin Sodium 500 100 mls @ 100 mls/hr 06/15/16 17:00 06/17/16 09: 41 mg/ Sodium Chloride IVPB 100 mls/hr Q8H LASHA Administration Sodium Bicarbonate 100 meq/ 1,000 mls @ 50 mls/hr 06/17/16 09:45 06/17/16 11:07 Sodium Chloride IV 50 mls/hr .Q20H LASHA Administration Latanoprost 0 ml 05/22/16 22:00 06/16/16 22:10 Xalatan Opht OU 2.5 ml HS LASHA Administration Pantoprazole Sodium 40 mg 06/11/16 10:00 06/17/16 12:00 Protonix Inj IVP 40 mg DAILY LASHA Administration - Patient Studies Lab Studies: Microbiology Studies 06/16/16 06:00 Blood Culture - Preliminary Blood Gram Negative Adalberto Gram Stain - Final 06/16/16 01:16 Urine Culture - Preliminary Urine,Cardenas Gram Negative Adalberto 06/16/16 05:30 Blood Culture - Preliminary Blood Gram Negative Adalberto Gram Stain - Final Lab Studies 06/17/16 06/17/16 06/17/16 Range/Units 12:33 11:48 06:15 WBC 29.2 H 27.8 H (4.8-10.8) K/uL RBC 3.19 L 3.18 L (4.40-5.90) Mil/uL Hgb 9.3 L 9.5 L (12.0-18.0) g/dL Hct 28.7 L 28.8 L (35.0-51.0) % MCV 89.8 90.6 (80.0-94.0) fL MCH 29.1 29.7 (27.0-31.0) pg MCHC 32.4 L 32.8 L (33.0-37.0) g/dL RDW 16.1 H 16.2 H (11.5-14.5) % Plt Count 66 L 69 L (130-400) K/uL MPV 9.6 9.8 (7.2-11.7) fL Neut % (Auto) 93.4 H (50.0-75.0) % Lymph % (Auto) 4.3 L (20.0-40.0) % Hood % (Auto) 1.5 (0.0-10.0) % Eos % (Auto) 0.7 (0.0-4.0) % Baso % (Auto) 0.1 (0.0-2.0) % Neut # 26.0 H (1.8-7.0) K/uL Lymph # 1.2 (1.0-4.3) K/uL Hood # 0.4 (0.0-0.8) K/uL Eos # 0.2 (0.0-0.7) K/uL Baso # 0.0 (0.0-0.2) K/uL Neutrophils % (Manual) 47 L (50-75) % Band Neutrophils % 46 H* (0-2) % Lymphocytes % (Manual) 4 L (20-40) % Monocytes % (Manual) 3 (0-10) % Platelet Estimate Decreased L (NORMAL) Polychromasia Slight Anisocytosis (manual) Slight Tear Drop Cells Slight Carlos Cells Slight Puncture Site pCO2 (35-45) mm/Hg pO2 (80-100) mm/Hg HCO3 (21-28) mmol/L ABG pH (7.35-7.45) ABG Total CO2 (22-28) mmol/L ABG O2 Saturation (95-98) % ABG Base Excess (-2.0-3.0) mmol/L ABG Hemoglobin (11.7-17.4) g/dL ABG Carboxyhemoglobin (0.5-1.5) % POC ABG HHb (Measured) (0.0-5.0) % ABG Methemoglobin (0.0-3.0) % Alek Test A-a O2 Difference mm/Hg Respiratory Index Hgb O2 Saturation (95.0-98.0) % Mechanical Rate FiO2 % Tidal Volume PEEP Sodium 145 (132-148) mmol/L Potassium 3.3 L (3.6-5.2) mmol/L Chloride 116 H (98-107) mmol/L Carbon Dioxide 15 L (22-30) mmol/L Anion Gap 17 (10-20) BUN 16 (9-20) mg/dL Creatinine 1.4 (0.8-1.5) MG/DL Est GFR ( Amer) 58 Est GFR (Non-Af Amer) 48 POC Glucose (mg/dL) 116 H (65-110) mg/dL Random Glucose 89 (75-110) mg/dL Calcium 6.9 L (8.6-10.4) mg/dl Phosphorus 3.5 (2.5-4.5) mg/dL Magnesium 2.0 (1.6-2.3) mg/dL Total Bilirubin 1.3 (0.2-1.3) mg/dL AST 13 L (17-59) U/L ALT 22 (21-72) U/L Alkaline Phosphatase 70 (38-126) U/L Total Protein 4.3 L (6.3-8.3) g/dL Albumin 2.2 L (3.5-5.0) g/dL Globulin 2.1 L (2.2-3.9) gm/dL Albumin/Globulin Ratio 1.0 (1.0-2.1) 06/17/16 06/17/16 06/16/16 Range/Units 05:38 05:28 23:27 WBC (4.8-10.8) K/uL RBC (4.40-5.90) Mil/uL Hgb (12.0-18.0) g/dL Hct (35.0-51.0) % MCV (80.0-94.0) fL MCH (27.0-31.0) pg MCHC (33.0-37.0) g/dL RDW (11.5-14.5) % Plt Count (130-400) K/uL MPV (7.2-11.7) fL Neut % (Auto) (50.0-75.0) % Lymph % (Auto) (20.0-40.0) % Hood % (Auto) (0.0-10.0) % Eos % (Auto) (0.0-4.0) % Baso % (Auto) (0.0-2.0) % Neut # (1.8-7.0) K/uL Lymph # (1.0-4.3) K/uL Hood # (0.0-0.8) K/uL Eos # (0.0-0.7) K/uL Baso # (0.0-0.2) K/uL Neutrophils % (Manual) (50-75) % Band Neutrophils % (0-2) % Lymphocytes % (Manual) (20-40) % Monocytes % (Manual) (0-10) % Platelet Estimate (NORMAL) Polychromasia Anisocytosis (manual) Tear Drop Cells [place] Cells Puncture Site Landy pCO2 35 (35-45) mm/Hg pO2 111 H (80-100) mm/Hg HCO3 19.6 L (21-28) mmol/L ABG pH 7.33 L (7.35-7.45) ABG Total CO2 19.6 L (22-28) mmol/L ABG O2 Saturation 99.6 H (95-98) % ABG Base Excess -6.8 L (-2.0-3.0) mmol/L ABG Hemoglobin 9.2 L (11.7-17.4) g/dL ABG Carboxyhemoglobin 1.5 (0.5-1.5) % POC ABG HHb (Measured) 0.4 (0.0-5.0) % ABG Methemoglobin 0.9 (0.0-3.0) % Alek Test Na A-a O2 Difference 202.0 mm/Hg Respiratory Index 1.8 Hgb O2 Saturation 97.3 (95.0-98.0) % Mechanical Rate 14 FiO2 50.0 % Tidal Volume 500 PEEP 5 Sodium (132-148) mmol/L Potassium (3.6-5.2) mmol/L Chloride (98-107) mmol/L Carbon Dioxide (22-30) mmol/L Anion Gap (10-20) BUN (9-20) mg/dL Creatinine (0.8-1.5) MG/DL Est GFR ( Amer) Est GFR (Non-Af Amer) POC Glucose (mg/dL) 95 110 (65-110) mg/dL Random Glucose (75-110) mg/dL Calcium (8.6-10.4) mg/dl Phosphorus (2.5-4.5) mg/dL Magnesium (1.6-2.3) mg/dL Total Bilirubin (0.2-1.3) mg/dL AST (17-59) U/L ALT (21-72) U/L Alkaline Phosphatase (38-126) U/L Total Protein (6.3-8.3) g/dL Albumin (3.5-5.0) g/dL Globulin (2.2-3.9) gm/dL Albumin/Globulin Ratio (1.0-2.1) 06/16/16 Range/Units 17:46 WBC (4.8-10.8) K/uL RBC (4.40-5.90) Mil/uL Hgb (12.0-18.0) g/dL Hct (35.0-51.0) % MCV (80.0-94.0) fL MCH (27.0-31.0) pg MCHC (33.0-37.0) g/dL RDW (11.5-14.5) % Plt Count (130-400) K/uL MPV (7.2-11.7) fL Neut % (Auto) (50.0-75.0) % Lymph % (Auto) (20.0-40.0) % Hood % (Auto) (0.0-10.0) % Eos % (Auto) (0.0-4.0) % Baso % (Auto) (0.0-2.0) % Neut # (1.8-7.0) K/uL Lymph # (1.0-4.3) K/uL Hood # (0.0-0.8) K/uL Eos # (0.0-0.7) K/uL Baso # (0.0-0.2) K/uL Neutrophils % (Manual) (50-75) % Band Neutrophils % (0-2) % Lymphocytes % (Manual) (20-40) % Monocytes % (Manual) (0-10) % Platelet Estimate (NORMAL) Polychromasia Anisocytosis (manual) Tear Drop Cells [place] Cells Puncture Site pCO2 (35-45) mm/Hg pO2 (80-100) mm/Hg HCO3 (21-28) mmol/L ABG pH (7.35-7.45) ABG Total CO2 (22-28) mmol/L ABG O2 Saturation (95-98) % ABG Base Excess (-2.0-3.0) mmol/L ABG Hemoglobin (11.7-17.4) g/dL ABG Carboxyhemoglobin (0.5-1.5) % POC ABG HHb (Measured) (0.0-5.0) % ABG Methemoglobin (0.0-3.0) % Alek Test A-a O2 Difference mm/Hg Respiratory Index Hgb O2 Saturation (95.0-98.0) % Mechanical Rate FiO2 % Tidal Volume PEEP Sodium (132-148) mmol/L Potassium (3.6-5.2) mmol/L Chloride (98-107) mmol/L Carbon Dioxide (22-30) mmol/L Anion Gap (10-20) BUN (9-20) mg/dL Creatinine (0.8-1.5) MG/DL Est GFR ( Amer) Est GFR (Non-Af Amer) POC Glucose (mg/dL) 107 (65-110) mg/dL Random Glucose (75-110) mg/dL Calcium (8.6-10.4) mg/dl Phosphorus (2.5-4.5) mg/dL Magnesium (1.6-2.3) mg/dL Total Bilirubin (0.2-1.3) mg/dL AST (17-59) U/L ALT (21-72) U/L Alkaline Phosphatase (38-126) U/L Total Protein (6.3-8.3) g/dL Albumin (3.5-5.0) g/dL Globulin (2.2-3.9) gm/dL Albumin/Globulin Ratio (1.0-2.1) Laboratory Results - last 24 hr 06/16/16 06/16/16 06/17/16 17:46 23:27 05:28 WBC RBC Hgb Hct MCV MCH MCHC RDW Plt Count MPV Neut % (Auto) Lymph % (Auto) Hood % (Auto) Eos % (Auto) Baso % (Auto) Neut # Lymph # Hood # Eos # Baso # Neutrophils % (Manual) Band Neutrophils % Lymphocytes % (Manual) Monocytes % (Manual) Platelet Estimate Polychromasia Anisocytosis (manual) Tear Drop Cells [place] Cells Puncture Site Landy pCO2 35 pO2 111 H HCO3 19.6 L ABG pH 7.33 L ABG Total CO2 19.6 L ABG O2 Saturation 99.6 H ABG Base Excess -6.8 L ABG Hemoglobin 9.2 L ABG Carboxyhemoglobin 1.5 POC ABG HHb (Measured) 0.4 ABG Methemoglobin 0.9 Alek Test Na A-a O2 Difference 202.0 Respiratory Index 1.8 Hgb O2 Saturation 97.3 Mechanical Rate 14 FiO2 50.0 Tidal Volume 500 PEEP 5 Sodium Potassium Chloride Carbon Dioxide Anion Gap BUN Creatinine Est GFR ( Amer) Est GFR (Non-Af Amer) POC Glucose (mg/dL) 107 110 Random Glucose Calcium Phosphorus Magnesium Total Bilirubin AST ALT Alkaline Phosphatase Total Protein Albumin Globulin Albumin/Globulin Ratio 06/17/16 06/17/16 06/17/16 05:38 06:15 11:48 WBC 27.8 H RBC 3.18 L Hgb 9.5 L Hct 28.8 L MCV 90.6 MCH 29.7 MCHC 32.8 L RDW 16.2 H Plt Count 69 L MPV 9.8 Neut % (Auto) 93.4 H Lymph % (Auto) 4.3 L Hood % (Auto) 1.5 Eos % (Auto) 0.7 Baso % (Auto) 0.1 Neut # 26.0 H Lymph # 1.2 Hood # 0.4 Eos # 0.2 Baso # 0.0 Neutrophils % (Manual) 47 L Band Neutrophils % 46 H* Lymphocytes % (Manual) 4 L Monocytes % (Manual) 3 Platelet Estimate Decreased L Polychromasia Slight Anisocytosis (manual) Slight Tear Drop Cells Slight Carlos Cells Slight Puncture Site pCO2 pO2 HCO3 ABG pH ABG Total CO2 ABG O2 Saturation ABG Base Excess ABG Hemoglobin ABG Carboxyhemoglobin POC ABG HHb (Measured) ABG Methemoglobin Alek Test A-a O2 Difference Respiratory Index Hgb O2 Saturation Mechanical Rate FiO2 Tidal Volume PEEP Sodium 145 Potassium 3.3 L Chloride 116 H Carbon Dioxide 15 L Anion Gap 17 BUN 16 Creatinine 1.4 Est GFR ( Amer) 58 Est GFR (Non-Af Amer) 48 POC Glucose (mg/dL) 95 116 H Random Glucose 89 Calcium 6.9 L Phosphorus 3.5 Magnesium 2.0 Total Bilirubin 1.3 AST 13 L ALT 22 Alkaline Phosphatase 70 Total Protein 4.3 L Albumin 2.2 L Globulin 2.1 L Albumin/Globulin Ratio 1.0 06/17/16 12:33 WBC 29.2 H RBC 3.19 L Hgb 9.3 L Hct 28.7 L MCV 89.8 MCH 29.1 MCHC 32.4 L RDW 16.1 H Plt Count 66 L MPV 9.6 Neut % (Auto) Lymph % (Auto) Hood % (Auto) Eos % (Auto) Baso % (Auto) Neut # Lymph # Hood # Eos # Baso # Neutrophils % (Manual) Band Neutrophils % Lymphocytes % (Manual) Monocytes % (Manual) Platelet Estimate Polychromasia Anisocytosis (manual) Tear Drop Cells [place] Cells Puncture Site pCO2 pO2 HCO3 ABG pH ABG Total CO2 ABG O2 Saturation ABG Base Excess ABG Hemoglobin ABG Carboxyhemoglobin POC ABG HHb (Measured) ABG Methemoglobin Alek Test A-a O2 Difference Respiratory Index Hgb O2 Saturation Mechanical Rate FiO2 Tidal Volume PEEP Sodium Potassium Chloride Carbon Dioxide Anion Gap BUN Creatinine Est GFR ( Amer) Est GFR (Non-Af Amer) POC Glucose (mg/dL) Random Glucose Calcium Phosphorus Magnesium Total Bilirubin AST ALT Alkaline Phosphatase Total Protein Albumin Globulin Albumin/Globulin Ratio Critical Care Progress Note - Nutrition Nutrition: Nutrition Category Date Time Status NPO Diet [DIET] Diets 06/14/16 Dinner Active Assessment/Plan (1) Gastrointestinal hemorrhage Current Visit: Yes Status: Acute Comment: Transfuse packed RBCs as needed Transfuse 2 units of FFP Platelet count 107 with 94% platelets functional Possible surgery today or in the a.m. Continue Protonix (2) Anemia Current Visit: No Status: Acute Attending/Attestation - Attestation I have personally seen and examined this patient.: Yes I have fully participated in the care of the patient.: Yes I have reviewed all pertinent clinical information: Yes Notes (Text): 06/17/16 17:02 patient seen and examined in the intensive care unit. Case discussed with house staff in the morning rounds. He remains intubated on ventilatory support Patient is off sedation but does not respond to stimuli no active bleeding noted Remains on moderate dose pressors spoke with patient's family at length
--- NOTE | 2016-06-17 10:30 | CP.PCM.PN ---
Subjective - Date & Time of Evaluation Date of Evaluation: 06/17/16 Time of Evaluation: 14:20 - Subjective Subjective: clinically same Objective - Vital Signs/Intake and Output Vital Signs (last 24 hours): Temp Pulse Resp BP Pulse Ox 97.8 F 71 15 107/40 L 100 06/17/16 08:00 06/17/16 09:13 06/17/16 09:13 06/17/16 09:13 06/17/16 09:13 Intake and Output: 06/17/16 06/17/16 06:59 18:59 Intake Total 954.0 321.8 Output Total 230 50 Balance 724.0 271.8 - Medications Medications: Current Medications Albumin Human (Albumin Human 25% (12.5 Gm/50 Ml)) 12.5 gm IV Q12 [facility] Stop: 06/18/16 10:01 Last Admin: 06/16/16 22:10 Dose: 12.5 gm Ferric Sodium Gluconate Complex (Ferrlecit) 125 mg IVPB DAILY [facility] Stop: 06/17/16 10:31 Last Admin: 06/16/16 10:11 Dose: 125 mg Fluconazole (Diflucan Iv 100 Mg/50 Ml Ns) 50 mls @ 100 mls/hr IVPB DAILY [facility] Last Admin: 06/16/16 10:10 Dose: 100 mls/hr Propofol (Diprivan) 100 mls @ 2.443 mls/hr IV .Q24H PRN; Protocol; 5 MCG/KG/MIN PRN Reason: TITRATE PER MD ORDER Last Admin: 06/17/16 02:23 Dose: 8.1 mls/hr Vasopressin 40 units/ Sodium (Chloride) 40 mls @ 2.4 mls/hr IV .[id number] [facility] PRN Reason: 0.04 UNITS/MIN Last Admin: 06/17/16 08:21 Dose: 2.4 mls/hr Norepinephrine Bitartrate 16 (mg/ Sodium Chloride) 266 mls @ 3.99 mls/hr IV .Q24H PRN; Protocol; 4 MCG/MIN PRN Reason: TITRATE PER MD ORDER Last Titration: 06/17/16 09:00 Dose: 10 mcg/min Imipenem/Cilastatin Sodium 500 (mg/ Sodium Chloride) 100 mls @ 100 mls/hr IVPB Q8H [facility] Last Admin: 06/17/16 09:41 Dose: 100 mls/hr Sodium Bicarbonate 100 meq/ (Sodium Chloride) 1,000 mls @ 50 mls/hr IV .Q20H [facility] Potassium Chloride (Potassium Chloride 20 Meq/100 Ml) 100 mls @ 50 mls/hr IVPB ONCE ONE Stop: 06/17/16 11:36 Latanoprost (Xalatan Opht) 0 ml OU HS [facility] Last Admin: 06/16/16 22:10 Dose: 2.5 ml Pantoprazole Sodium (Protonix Inj) 40 mg IVP DAILY [facility] Last Admin: 06/16/16 10:12 Dose: 40 mg - Labs Labs: 06/17/16 06:15 06/17/16 06:15 PT 13.4 SECONDS (9.7-12.2) H 06/14/16 20:34 INR 1.2 06/14/16 20:34 APTT 45 SECONDS (21-34) H D 06/14/16 20:34 - Constitutional Appears: Well - Head Exam Head Exam: ATRAUMATIC, NORMAL INSPECTION, NORMOCEPHALIC - Eye Exam Eye Exam: EOMI, Normal appearance, PERRL Pupil Exam: NORMAL ACCOMODATION, PERRL - ENT Exam ENT Exam: Mucous Membranes Moist, Normal Exam - Neck Exam Neck Exam: Full ROM, Normal Inspection. absent: Lymphadenopathy - Respiratory Exam Respiratory Exam: Decreased Breath Sounds - Cardiovascular Exam Cardiovascular Exam: REGULAR RHYTHM, +S1, +S2 - GI/Abdominal Exam GI & Abdominal Exam: Soft, Diminished Bowel Sounds - Rectal Exam Rectal Exam: Deferred Assessment and Plan (1) Acute renal failure Status: Acute (2) Anemia Status: Acute (3) BPH (benign prostatic hyperplasia) Status: Acute (4) Bilateral edema of lower extremity Status: Acute (5) DVT prophylaxis Status: Acute (6) Dry gangrene Status: Acute (7) Gastrointestinal hemorrhage Status: Acute (8) Hypochromic microcytic anemia Status: Acute (9) Hypovolemic shock Status: Acute (10) Memory difficulty Status: Acute (11) Paresthesia of both lower extremities Status: Acute (12) Pneumonia Status: Acute (13) CHF (congestive heart failure) Status: Chronic (14) Diabetes mellitus Status: Chronic - Assessment and Plan (Free Text) Plan: f/u with GI f/u with ID f/u with riveter automobile brakes f/u with General surgeon continue monitor H/H Patient on ventilator protonix Novolog
[2016-06-17] MEDS: Sodium Bicarbonate 8.4% 100 MEQ in Sodium Chloride 0.45% 900 ML IV SCH (11:07)
--- NOTE | 2016-06-17 12:04 | CP.PCM.PN ---
Subjective - Date & Time of Evaluation Date of Evaluation: 06/17/16 Time of Evaluation: 12:01 - Subjective Subjective: Intubated and sedation being weaned Still on pressor support but slightly less requirement FI02: down to 50% H/H remains 11 >10.4 > 9.5 No arrythmias - Constitutional Appears: Other (Intubated and sedated) - Respiratory Exam Respiratory Exam: Rhonchi (scattered) - Extremities Exam Extremities Exam: absent: trace pretibial and Pedal Edema - Neurological Exam Neurological Exam: Altered - Skin Skin Exam: Normal Color, Warm Objective - Vital Signs/Intake and Output Vital Signs (last 24 hours): Temp Pulse Resp BP Pulse Ox 97.8 F 71 15 107/40 L 100 06/17/16 08:00 06/17/16 09:13 06/17/16 09:13 06/17/16 09:13 06/17/16 09:13 Intake and Output: 06/17/16 06/17/16 06:59 18:59 Intake Total 954.0 321.8 Output Total 230 50 Balance 724.0 271.8 - Medications Medications: Current Medications Albumin Human (Albumin Human 25% (12.5 Gm/50 Ml)) 12.5 gm IV Q12 [facility] Stop: 06/18/16 10:01 Last Admin: 06/16/16 22:10 Dose: 12.5 gm Fluconazole (Diflucan Iv 100 Mg/50 Ml Ns) 50 mls @ 100 mls/hr IVPB DAILY [facility] Last Admin: 06/16/16 10:10 Dose: 100 mls/hr Propofol (Diprivan) 100 mls @ 2.443 mls/hr IV .Q24H PRN; Protocol; 5 MCG/KG/MIN PRN Reason: TITRATE PER MD ORDER Last Admin: 06/17/16 02:23 Dose: 8.1 mls/hr Vasopressin 40 units/ Sodium (Chloride) 40 mls @ 2.4 mls/hr IV .[id number] [facility] PRN Reason: 0.04 UNITS/MIN Last Admin: 06/17/16 08:21 Dose: 2.4 mls/hr Norepinephrine Bitartrate 16 (mg/ Sodium Chloride) 266 mls @ 3.99 mls/hr IV .Q24H PRN; Protocol; 4 MCG/MIN PRN Reason: TITRATE PER MD ORDER Last Titration: 06/17/16 09:00 Dose: 10 mcg/min Imipenem/Cilastatin Sodium 500 (mg/ Sodium Chloride) 100 mls @ 100 mls/hr IVPB Q8H [facility] Last Admin: 06/17/16 09:41 Dose: 100 mls/hr Sodium Bicarbonate 100 meq/ (Sodium Chloride) 1,000 mls @ 50 mls/hr IV .Q20H [facility] Last Admin: 06/17/16 11:07 Dose: 50 mls/hr Latanoprost (Xalatan Opht) 0 ml OU HS [facility] Last Admin: 06/16/16 22:10 Dose: 2.5 ml Pantoprazole Sodium (Protonix Inj) 40 mg IVP DAILY [facility] Last Admin: 06/16/16 10:12 Dose: 40 mg - Labs Labs: 06/17/16 06:15 06/17/16 06:15 PT 13.4 SECONDS (9.7-12.2) H 06/14/16 20:34 INR 1.2 06/14/16 20:34 APTT 45 SECONDS (21-34) H D 06/14/16 20:34 Assessment and Plan - Assessment and Plan (Free Text) Assessment: 85 y/o with 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 s/p FFP and platelet transfusion for refractory anemia and recurrent GI bleed. Off antiplatelets for now. * Risk assesment in progress for possible surgical GI intervention for GI bleed planned if recurrence of GI bleed or worsening of anemia. * There is no futher cardiac work up at this time. We will following along to assist in fluid management and hemodynamics for chronic systolic CHF and moderate . Currently he is hemodynamically stable without volume overload, arrythmias. CADIAC: * Chronic compensated Mod LV systolic dysfunction, mild MR, Mod , distal septal and anterior akinesia due to chronic CAD s/p CABG in 2012. * Hx of known mild-mod LV dysfunction EF 35-40% due to ischemic cardiomyopathy * Euvolemic at present * BP and HR are apporiate * Lower extrem edema is improved: * CKD stage 3A chronic * No AFIB seen on any EKG or documented strips Suggest IV amiodarone if recurrence of rapid AFIB or ventricular arrythmia Cont vent and pressor support Remains Acidotic: on bicarb Sedation being weaned May need urgent colectomy if recurrence of bleed Long discussion with family who was at bedside thursday regards clinical course.
[2016-06-17 12:38] LABS: HEMATOCRIT 28.7 % (35.0-51.0); MEAN CELL VOLUME 89.8 fL (80.0-94.0); MEAN CORPUSCULAR HEMOGLOBIN 29.1 pg (27.0-31.0); MEAN CORPUSCULAR HGB CONC 32.4 g/dL (33.0-37.0); MEAN PLATELET VOLUME 9.6 fL (7.2-11.7); RED CELL DISTRIBUTION WIDTH 16.1 % (11.5-14.5); WHITE BLOOD COUNT 29.2 K/uL (4.8-10.8)
[2016-06-17] MEDS: Fluconazole IV 100mg/50 ml NS 50 ML IVPB SCH (12:42)
[2016-06-17] MEDS: Albumin Human 25% (12.5 gm/50 ml) IV SCH ×2 (13:29→21:43)
[2016-06-17] MEDS: Ferric Sodium Gluconat Complex 62.5 mg/5 ml Vial IVPB SCH (17:00)
[2016-06-17] MEDS: Latanoprost 2.5 ml Opht Soln OU SCH (21:38)
[2016-06-18 05:39] LABS: ABG ALLEN TEST POS; ABG MECHANICAL RATE 14; ARTERIAL BLOOD HGB O2 SAT 97.1 % (95.0-98.0); ATERIAL BLOOD GAS PEEP 5; CARBOXYHEMOGLOBIN 1.2 % (0.5-1.5); DRAW SITE LRAD; HHB 0.3 % (0.0-5.0); METHEMOGLOBIN 1.3 % (0.0-3.0)
[2016-06-18] MEDS: Sodium Bicarbonate 8.4% 100 MEQ in Sodium Chloride 0.45% 900 ML IV SCH ×2 (05:53→12:01)
[2016-06-18 06:17] LABS: BASO % 0.2 % (0.0-2.0); EOS % 0.1 % (0.0-4.0); HEMATOCRIT 30.8 % (35.0-51.0); LYMPH # 1.2 K/uL (1.0-4.3); LYMPH % 4.7 % (20.0-40.0); MEAN CELL VOLUME 91.9 fL (80.0-94.0); MEAN CORPUSCULAR HEMOGLOBIN 29.4 pg (27.0-31.0); MEAN PLATELET VOLUME 9.8 fL (7.2-11.7); MONO # 0.6 K/uL (0.0-0.8); MONO % 2.4 % (0.0-10.0); PLATELET COUNT 45 K/uL (130-400); RED CELL DISTRIBUTION WIDTH 16.7 % (11.5-14.5); WHITE BLOOD COUNT 25.4 K/uL (4.8-10.8)
[2016-06-18 06:44] LABS: POTASSIUM 3.9 mmol/L (3.6-5.2)
[2016-06-18 06:46] LABS: ALB/GLOB RATIO 1.1 (1.0-2.1); BILIRUBIN,TOTAL 2.8 mg/dL (0.2-1.3); CALCIUM 7.5 mg/dl (8.6-10.4); PHOSPHOROUS 4.1 mg/dL (2.5-4.5)
[2016-06-18 06:47] LABS: MAGNESIUM 2.3 mg/dL (1.6-2.3)
--- NOTE | 2016-06-18 07:54 | CP.PCM.PN ---
<ClaudeEileen - Last Filed: 06/18/16 08:14> Subjective - Date & Time of Evaluation Date of Evaluation: 06/18/16 Time of Evaluation: 07:30 - Subjective Subjective: General Surgery Dr. Crane Pt S&E @bedside. NAEO. intubated, off sedation. pper nursing notes, no melena overnight. Vent settings 14, 500, 5, 50%, Sating 100% NGT 55cc x24hrs Objective - Vital Signs/Intake and Output Vital Signs (last 24 hours): Temp Pulse Resp BP Pulse Ox 98.6 F 79 20 127/71 100 06/18/16 05:00 06/18/16 07:13 06/18/16 07:13 06/18/16 07:13 06/18/16 07:13 Intake and Output: 06/18/16 06/18/16 06:59 18:59 Intake Total 930.8 61.4 Output Total 230 25 Balance 700.8 36.4 - Medications Medications: Current Medications Albumin Human (Albumin Human 25% (12.5 Gm/50 Ml)) 12.5 gm IV Q12 [facility] Stop: 06/18/16 10:01 Last Admin: 06/17/16 21:43 Dose: 12.5 gm Fluconazole (Diflucan Iv 100 Mg/50 Ml Ns) 50 mls @ 100 mls/hr IVPB DAILY [facility] Last Admin: 06/17/16 12:42 Dose: 100 mls/hr Propofol (Diprivan) 100 mls @ 2.443 mls/hr IV .Q24H PRN; Protocol; 5 MCG/KG/MIN PRN Reason: TITRATE PER MD ORDER Last Titration: 06/17/16 08:30 Dose: 0 mcg/kg/min Vasopressin 40 units/ Sodium (Chloride) 40 mls @ 2.4 mls/hr IV .[id number] [facility] PRN Reason: 0.04 UNITS/MIN Last Admin: 06/18/16 05:53 Dose: Not Given Norepinephrine Bitartrate 16 (mg/ Sodium Chloride) 266 mls @ 3.99 mls/hr IV .Q24H PRN; Protocol; 4 MCG/MIN PRN Reason: TITRATE PER MD ORDER Last Titration: 06/18/16 05:55 Dose: 9.02 mcg/min Imipenem/Cilastatin Sodium 500 (mg/ Sodium Chloride) 100 mls @ 100 mls/hr IVPB Q8H [facility] Last Admin: 06/18/16 00:38 Dose: 100 mls/hr Sodium Bicarbonate 100 meq/ (Sodium Chloride) 1,000 mls @ 50 mls/hr IV .Q20H [facility] Last Admin: 06/18/16 05:53 Dose: Not Given Latanoprost (Xalatan Opht) 0 ml OU HS [facility] Last Admin: 06/17/16 21:38 Dose: 2.5 ml Pantoprazole Sodium (Protonix Inj) 40 mg IVP DAILY [facility] Last Admin: 06/17/16 12:00 Dose: 40 mg - Labs Labs: 06/18/16 06:06 06/18/16 06:06 PT 13.4 SECONDS (9.7-12.2) H 06/14/16 20:34 INR 1.2 06/14/16 20:34 APTT 45 SECONDS (21-34) H D 06/14/16 20:34 - Constitutional Appears: No Acute Distress, Unkempt, Chronically Ill - Head Exam Head Exam: NORMAL INSPECTION - ENT Exam ENT Exam: Mucous Membranes Moist - Respiratory Exam Respiratory Exam: NORMAL BREATHING PATTERN (ventilation). absent: Accessory Muscle Use, Respiratory Distress - Cardiovascular Exam Cardiovascular Exam: REGULAR RHYTHM. absent: Bradycardia, Tachycardia - GI/Abdominal Exam GI & Abdominal Exam: Soft. 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 Rosa Maria Arce PGY1 <Erasmo Crane - Last Filed: 06/18/16 17:50> Objective - Vital Signs/Intake and Output Vital Signs (last 24 hours): Temp Pulse Resp BP Pulse Ox 97.8 F 79 18 114/66 99 06/18/16 17:37 06/18/16 17:37 06/18/16 17:37 06/18/16 17:37 06/18/16 14:40 Intake and Output: 06/18/16 06/18/16 06:59 18:59 Intake Total 930.8 564.8 Output Total 230 90 Balance 700.8 474.8 - Medications Medications: Current Medications Acetaminophen (Tylenol 325mg Tab) 650 mg PO Q6 PRN PRN Reason: Fever >100.4 F Fluconazole (Diflucan Iv 100 Mg/50 Ml Ns) 50 mls @ 100 mls/hr IVPB DAILY [facility] Last Admin: 06/18/16 09:57 Dose: 100 mls/hr Propofol (Diprivan) 100 mls @ 2.443 mls/hr IV .Q24H PRN; Protocol; 5 MCG/KG/MIN PRN Reason: TITRATE PER MD ORDER Last Titration: 06/17/16 08:30 Dose: 0 mcg/kg/min Vasopressin 40 units/ Sodium (Chloride) 40 mls @ 2.4 mls/hr IV .[id number] [facility] PRN Reason: 0.04 UNITS/MIN Last Admin: 06/18/16 05:53 Dose: Not Given Norepinephrine Bitartrate 16 (mg/ Sodium Chloride) 266 mls @ 3.99 mls/hr IV .Q24H PRN; Protocol; 4 MCG/MIN PRN Reason: TITRATE PER MD ORDER Last Admin: 06/18/16 14:40 Dose: 2.99 mls/hr Imipenem/Cilastatin Sodium 500 (mg/ Sodium Chloride) 100 mls @ 100 mls/hr IVPB Q8H [facility] Last Admin: 06/18/16 17:21 Dose: 100 mls/hr Sodium Bicarbonate 100 meq/ (Sodium Chloride) 1,000 mls @ 50 mls/hr IV .Q20H [facility] Last Admin: 06/18/16 12:01 Dose: 50 mls/hr Latanoprost (Xalatan Opht) 0 ml OU HS [facility] Last Admin: 06/17/16 21:38 Dose: 2.5 ml Pantoprazole Sodium (Protonix Inj) 40 mg IVP DAILY [facility] Last Admin: 06/18/16 11:59 Dose: 40 mg - Labs Labs: 06/18/16 06:06 06/18/16 06:06 PT 13.4 SECONDS (9.7-12.2) H 06/14/16 20:34 INR 1.2 06/14/16 20:34 APTT 45 SECONDS (21-34) H D 06/14/16 20:34 Attending/Attestation - Attestation I have personally seen and examined this patient.: Yes I have fully participated in the care of the patient.: Yes I have reviewed all pertinent clinical information, including history, physical exam and plan: Yes Notes (Text): 06/18/16 17:50 06/16/16 21:16 Pt was seen and examined at bedside on 06/18/16 Agree with above note and assessment Pt with VDRF and Pneumonia Resolved Lower GI Bleed C.w current mx Observation with Serial abdominal exam Plan d.w ICU team in detail.
[2016-06-18 08:32] LABS: TOTAL CELLS COUNTED 100
[2016-06-18 08:36] LABS: NEUTROPHIL 86 % (50-75)
--- NOTE | 2016-06-18 09:05 | RAD ---
HISTORY: intubated COMPARISON: 06/17/2016 FINDINGS: LUNGS: Lines and tubes stable position. Persistent diffuse confluent bilateral airspace opacities in both lungs most prominent in the right perihilar and left lung base. Biapical pleural thickening with upper lobe granulomatous changes. Scattered nodularity in both lung rey. Question small left pleural effusion. PLEURA: As above. CARDIOVASCULAR: Cardiomegaly. Status post median sternotomy and CABG. OSSEOUS STRUCTURES: Degenerative changes in the spine and shoulders. VISUALIZED UPPER ABDOMEN: Normal. OTHER FINDINGS: None. IMPRESSION: Lines and tubes stable position. Persistent diffuse confluent bilateral airspace opacities in both lungs most prominent in the right perihilar and left lung base. Biapical pleural thickening with upper lobe granulomatous changes. Scattered nodularity in both lung rey. Question small left pleural effusion.
[2016-06-18] MEDS ORDERED: Sodium Chloride 0.9% 1,000 ML IV ONE (09:15)
[2016-06-18] MEDS: Fluconazole IV 100mg/50 ml NS 50 ML IVPB SCH (09:57)
[2016-06-18] MEDS: Albumin Human 25% (12.5 gm/50 ml) IV SCH (10:52)
--- NOTE | 2016-06-18 11:21 | CP.CCUPN ---
<Leobardo Meneses - Last Filed: 06/18/16 12:44> CCU Subjective - Physician Review Subjective (Free Text): 06/18/16 11:05 Pt seen and examined at bedside. He remains intubated, but off sedation. Pt not following commands, but is more awake and active today. Nursing reports Currently on Levophed 3 mcg/min, vasopressin 0.04 u/min. FIO2 decreased to 50%. Hemoglobin stable today at 98, but platelets decreased to 46. Unable to obtain ROS at this time due to pt condition. Critical Care Time Spent (in minutes): 30 CCU Objective - Vital Signs / Intake & Output Vital Signs (Last 4 hours): Vital Signs Temp Pulse Resp BP Pulse Ox 06/18/16 10:00 81 19 99 06/18/16 09:13 78 18 112/70 99 06/18/16 09:00 100.4 F H 76 16 112/64 99 06/18/16 08:13 77 18 112/64 88 L 06/18/16 08:00 75 16 100 06/18/16 07:27 78 16 100 Intake and Output (Last 8hrs): Intake & Output 06/17/16 06/18/16 06/18/16 22:59 06:59 14:59 Intake Total 623.2 619.2 236.6 Output Total 115 160 70 Balance 508.2 459.2 166.6 Weight 180 lb Intake: Intake, IV Amount 623.2 619.2 236.6 Right Distal Port PICC 150 400 200 Right Medial Port PICC 104 100 27 Right External Jugular 300 R external jugular 50 100 Right Arm 19.2 19.2 9.6 Output: Gastric Amount 30 15 Stomach 30 15 Urine 85 145 70 Urethral (Cardenas) 85 145 70 Emesis 0 Other: # Bowel Movements 0 0 0 - Physical Exam Head: Positive for: Atraumatic, Normocephalic. Negative for: Swelling Pupils: Positive for: PERRL Extroacular Muscles: Positive for: EOMI Conjunctiva: Positive for: Normal Mouth: Positive for: Dry Neck: Positive for: Normal Range of Motion Respiratory/Chest: Positive for: Good Air Exchange, Rhonchi (scattered throughout lung rey). Negative for: Wheezes Cardiovascular: Positive for: Normal S1, S2 Abdomen: Positive for: Normal Bowel Sounds. Negative for: Peritoneal Signs Back: Positive for: Normal Inspection Upper Extremity: Positive for: Normal Inspection Lower Extremity: Positive for: Edema (trace pedal edema) Neurological: Positive for: Other (AMS) Skin: Positive for: Warm, Dry Psychiatric: Positive for: Alert, Lethargic. Negative for: Oriented x 3 - Medications Active Medications: Active Medications Generic Name Dose Route Start Last Admin Trade Name Freq PRN Reason Stop Dose Admin Fluconazole 50 mls @ 100 mls/hr 06/04/16 10:00 06/18/16 09:57 Diflucan Iv 100 Mg/50 Ml Ns IVPB 100 mls/hr DAILY LASHA Administration Propofol 100 mls @ 2.443 mls/hr 06/15/16 10:18 06/17/16 08:30 Diprivan IV 0 mcg/kg/min .Q24H PRN Titration TITRATE PER MD ORDER Protocol 5 MCG/KG/MIN Vasopressin 40 units/ Sodium 40 mls @ 2.4 mls/hr 06/15/16 10:30 06/18/16 05:53 Chloride IV Not Given .[id number] LASHA 0.04 UNITS/MIN Norepinephrine Bitartrate 16 266 mls @ 3.99 mls/hr 06/15/16 10:25 06/18/16 09: 37 mg/ Sodium Chloride IV 8 mcg/min .Q24H PRN Titration TITRATE PER MD ORDER Protocol 4 MCG/MIN Imipenem/Cilastatin Sodium 500 100 mls @ 100 mls/hr 06/15/16 17:00 06/18/16 08: 34 mg/ Sodium Chloride IVPB 100 mls/hr Q8H LASHA Administration Sodium Bicarbonate 100 meq/ 1,000 mls @ 50 mls/hr 06/17/16 09:45 06/18/16 05:53 Sodium Chloride IV Not Given .Q20H LASHA Latanoprost 0 ml 05/22/16 22:00 06/17/16 21:38 Xalatan Opht OU 2.5 ml HS LASHA Administration Pantoprazole Sodium 40 mg 06/11/16 10:00 06/17/16 12:00 Protonix Inj IVP 40 mg DAILY LASHA Administration - Patient Studies Lab Studies: Microbiology Studies 06/16/16 01:16 Urine Culture - Final Urine,Cardenas Proteus Mirabilis 06/16/16 06:00 Blood Culture - Final Blood Enterobacter Cloacae Gram Stain - Final 06/16/16 05:30 Blood Culture - Final Blood Enterobacter Cloacae Ssp Cloac Gram Stain - Final Lab Studies 06/18/16 06/18/16 06/18/16 Range/Units 06:06 05:41 05:26 WBC 25.4 H (4.8-10.8) K/uL RBC 3.35 L (4.40-5.90) Mil/uL Hgb 9.8 L (12.0-18.0) g/dL Hct 30.8 L (35.0-51.0) % MCV 91.9 D (80.0-94.0) fL MCH 29.4 (27.0-31.0) pg MCHC 32.0 L (33.0-37.0) g/dL RDW 16.7 H (11.5-14.5) % Plt Count 45 L D (130-400) K/uL MPV 9.8 (7.2-11.7) fL Neut % (Auto) 92.6 H (50.0-75.0) % Lymph % (Auto) 4.7 L (20.0-40.0) % [place] % (Auto) 2.4 (0.0-10.0) % Eos % (Auto) 0.1 (0.0-4.0) % Baso % (Auto) 0.2 (0.0-2.0) % Neut # 23.5 H (1.8-7.0) K/uL Lymph # 1.2 (1.0-4.3) K/uL [place] # 0.6 (0.0-0.8) K/uL Eos # 0.0 (0.0-0.7) K/uL Baso # 0.0 (0.0-0.2) K/uL Neutrophils % (Manual) 86 H (50-75) % Band Neutrophils % 11 H* (0-2) % Lymphocytes % (Manual) 1 L (20-40) % Monocytes % (Manual) 2 (0-10) % Toxic Granulation Present Dohle Bodies Present Platelet Estimate Decreased L (NORMAL) Anisocytosis (manual) Slight Ovalocytes Slight Puncture Site Lrad pCO2 28 L (35-45) mm/Hg pO2 184 H (80-100) mm/Hg HCO3 16.4 L (21-28) mmol/L ABG pH 7.31 L (7.35-7.45) ABG Total CO2 15.0 L (22-28) mmol/L ABG O2 Saturation 99.7 H (95-98) % ABG Base Excess -10.9 L (-2.0-3.0) mmol/L ABG Hemoglobin 9.9 L (11.7-17.4) g/dL ABG Carboxyhemoglobin 1.2 (0.5-1.5) % POC ABG HHb (Measured) 0.3 (0.0-5.0) % ABG Methemoglobin 1.3 (0.0-3.0) % Alek Test Pos A-a O2 Difference 138.0 mm/Hg Respiratory Index 0.8 Hgb O2 Saturation 97.1 (95.0-98.0) % Mechanical Rate 14 FiO2 50.0 % Tidal Volume 500 PEEP 5 Sodium 146 (132-148) mmol/L Potassium 3.9 (3.6-5.2) mmol/L Chloride 115 H (98-107) mmol/L Carbon Dioxide 12 L (22-30) mmol/L Anion Gap 23 H (10-20) BUN 21 H (9-20) mg/dL Creatinine 1.6 H (0.8-1.5) MG/DL Est GFR ( Amer) 50 Est GFR (Non-Af Amer) 41 POC Glucose (mg/dL) 116 H (65-110) mg/dL Random Glucose 99 (75-110) mg/dL Calcium 7.5 L (8.6-10.4) mg/dl Phosphorus 4.1 (2.5-4.5) mg/dL Magnesium 2.3 (1.6-2.3) mg/dL Total Bilirubin 2.8 H (0.2-1.3) mg/dL AST 380 H D (17-59) U/L ALT 119 H D (21-72) U/L Alkaline Phosphatase 97 (38-126) U/L Total Protein 5.0 L (6.3-8.3) g/dL Albumin 2.6 L (3.5-5.0) g/dL Globulin 2.4 (2.2-3.9) gm/dL Albumin/Globulin Ratio 1.1 (1.0-2.1) 06/17/16 06/17/16 06/17/16 Range/Units 23:52 17:44 12:33 WBC 29.2 H (4.8-10.8) K/uL RBC 3.19 L (4.40-5.90) Mil/uL Hgb 9.3 L (12.0-18.0) g/dL Hct 28.7 L (35.0-51.0) % MCV 89.8 (80.0-94.0) fL MCH 29.1 (27.0-31.0) pg MCHC 32.4 L (33.0-37.0) g/dL RDW 16.1 H (11.5-14.5) % Plt Count 66 L (130-400) K/uL MPV 9.6 (7.2-11.7) fL Neut % (Auto) (50.0-75.0) % Lymph % (Auto) (20.0-40.0) % [place] % (Auto) (0.0-10.0) % Eos % (Auto) (0.0-4.0) % Baso % (Auto) (0.0-2.0) % Neut # (1.8-7.0) K/uL Lymph # (1.0-4.3) K/uL [place] # (0.0-0.8) K/uL Eos # (0.0-0.7) K/uL Baso # (0.0-0.2) K/uL Neutrophils % (Manual) (50-75) % Band Neutrophils % (0-2) % Lymphocytes % (Manual) (20-40) % Monocytes % (Manual) (0-10) % Toxic Granulation Dohle Bodies Platelet Estimate (NORMAL) Anisocytosis (manual) Ovalocytes Puncture Site pCO2 (35-45) mm/Hg pO2 (80-100) mm/Hg HCO3 (21-28) mmol/L ABG pH (7.35-7.45) ABG Total CO2 (22-28) mmol/L ABG O2 Saturation (95-98) % ABG Base Excess (-2.0-3.0) mmol/L ABG Hemoglobin (11.7-17.4) g/dL ABG Carboxyhemoglobin (0.5-1.5) % POC ABG HHb (Measured) (0.0-5.0) % ABG Methemoglobin (0.0-3.0) % Alek Test A-a O2 Difference mm/Hg Respiratory Index Hgb O2 Saturation (95.0-98.0) % Mechanical Rate FiO2 % Tidal Volume PEEP Sodium (132-148) mmol/L Potassium (3.6-5.2) mmol/L Chloride (98-107) mmol/L Carbon Dioxide (22-30) mmol/L Anion Gap (10-20) BUN (9-20) mg/dL Creatinine (0.8-1.5) MG/DL Est GFR ( Amer) Est GFR (Non-Af Amer) POC Glucose (mg/dL) 126 H 107 (65-110) mg/dL Random Glucose (75-110) mg/dL Calcium (8.6-10.4) mg/dl Phosphorus (2.5-4.5) mg/dL Magnesium (1.6-2.3) mg/dL Total Bilirubin (0.2-1.3) mg/dL AST (17-59) U/L ALT (21-72) U/L Alkaline Phosphatase (38-126) U/L Total Protein (6.3-8.3) g/dL Albumin (3.5-5.0) g/dL Globulin (2.2-3.9) gm/dL Albumin/Globulin Ratio (1.0-2.1) 06/17/16 Range/Units 11:48 WBC (4.8-10.8) K/uL RBC (4.40-5.90) Mil/uL Hgb (12.0-18.0) g/dL Hct (35.0-51.0) % MCV (80.0-94.0) fL MCH (27.0-31.0) pg MCHC (33.0-37.0) g/dL RDW (11.5-14.5) % Plt Count (130-400) K/uL MPV (7.2-11.7) fL Neut % (Auto) (50.0-75.0) % Lymph % (Auto) (20.0-40.0) % [place] % (Auto) (0.0-10.0) % Eos % (Auto) (0.0-4.0) % Baso % (Auto) (0.0-2.0) % Neut # (1.8-7.0) K/uL Lymph # (1.0-4.3) K/uL [place] # (0.0-0.8) K/uL Eos # (0.0-0.7) K/uL Baso # (0.0-0.2) K/uL Neutrophils % (Manual) (50-75) % Band Neutrophils % (0-2) % Lymphocytes % (Manual) (20-40) % Monocytes % (Manual) (0-10) % Toxic Granulation Dohle Bodies Platelet Estimate (NORMAL) Anisocytosis (manual) Ovalocytes Puncture Site pCO2 (35-45) mm/Hg pO2 (80-100) mm/Hg HCO3 (21-28) mmol/L ABG pH (7.35-7.45) ABG Total CO2 (22-28) mmol/L ABG O2 Saturation (95-98) % ABG Base Excess (-2.0-3.0) mmol/L ABG Hemoglobin (11.7-17.4) g/dL ABG Carboxyhemoglobin (0.5-1.5) % POC ABG HHb (Measured) (0.0-5.0) % ABG Methemoglobin (0.0-3.0) % Alek Test A-a O2 Difference mm/Hg Respiratory Index Hgb O2 Saturation (95.0-98.0) % Mechanical Rate FiO2 % Tidal Volume PEEP Sodium (132-148) mmol/L Potassium (3.6-5.2) mmol/L Chloride (98-107) mmol/L Carbon Dioxide (22-30) mmol/L Anion Gap (10-20) BUN (9-20) mg/dL Creatinine (0.8-1.5) MG/DL Est GFR ( Amer) Est GFR (Non-Af Amer) POC Glucose (mg/dL) 116 H (65-110) mg/dL Random Glucose (75-110) mg/dL Calcium (8.6-10.4) mg/dl Phosphorus (2.5-4.5) mg/dL Magnesium (1.6-2.3) mg/dL Total Bilirubin (0.2-1.3) mg/dL AST (17-59) U/L ALT (21-72) U/L Alkaline Phosphatase (38-126) U/L Total Protein (6.3-8.3) g/dL Albumin (3.5-5.0) g/dL Globulin (2.2-3.9) gm/dL Albumin/Globulin Ratio (1.0-2.1) Laboratory Results - last 24 hr 06/17/16 06/17/16 06/17/16 11:48 12:33 17:44 WBC 29.2 H RBC 3.19 L Hgb 9.3 L Hct 28.7 L MCV 89.8 MCH 29.1 MCHC 32.4 L RDW 16.1 H Plt Count 66 L MPV 9.6 Neut % (Auto) Lymph % (Auto) [place] % (Auto) Eos % (Auto) Baso % (Auto) Neut # Lymph # [place] # Eos # Baso # Neutrophils % (Manual) Band Neutrophils % Lymphocytes % (Manual) Monocytes % (Manual) Toxic Granulation Dohle Bodies Platelet Estimate Anisocytosis (manual) Ovalocytes Puncture Site pCO2 pO2 HCO3 ABG pH ABG Total CO2 ABG O2 Saturation ABG Base Excess ABG Hemoglobin ABG Carboxyhemoglobin POC ABG HHb (Measured) ABG Methemoglobin Alek Test A-a O2 Difference Respiratory Index Hgb O2 Saturation Mechanical Rate FiO2 Tidal Volume PEEP Sodium Potassium Chloride Carbon Dioxide Anion Gap BUN Creatinine Est GFR ( Amer) Est GFR (Non-Af Amer) POC Glucose (mg/dL) 116 H 107 Random Glucose Calcium Phosphorus Magnesium Total Bilirubin AST ALT Alkaline Phosphatase Total Protein Albumin Globulin Albumin/Globulin Ratio 06/17/16 06/18/16 06/18/16 23:52 05:26 05:41 WBC RBC Hgb Hct MCV MCH MCHC RDW Plt Count MPV Neut % (Auto) Lymph % (Auto) [place] % (Auto) Eos % (Auto) Baso % (Auto) Neut # Lymph # [place] # Eos # Baso # Neutrophils % (Manual) Band Neutrophils % Lymphocytes % (Manual) Monocytes % (Manual) Toxic Granulation Dohle Bodies Platelet Estimate Anisocytosis (manual) Ovalocytes Puncture Site Lrad pCO2 28 L pO2 184 H HCO3 16.4 L ABG pH 7.31 L ABG Total CO2 15.0 L ABG O2 Saturation 99.7 H ABG Base Excess -10.9 L ABG Hemoglobin 9.9 L ABG Carboxyhemoglobin 1.2 POC ABG HHb (Measured) 0.3 ABG Methemoglobin 1.3 Alek Test Pos A-a O2 Difference 138.0 Respiratory Index 0.8 Hgb O2 Saturation 97.1 Mechanical Rate 14 FiO2 50.0 Tidal Volume 500 PEEP 5 Sodium Potassium Chloride Carbon Dioxide Anion Gap BUN Creatinine Est GFR ( Amer) Est GFR (Non-Af Amer) POC Glucose (mg/dL) 126 H 116 H Random Glucose Calcium Phosphorus Magnesium Total Bilirubin AST ALT Alkaline Phosphatase Total Protein Albumin Globulin Albumin/Globulin Ratio 06/18/16 06:06 WBC 25.4 H RBC 3.35 L Hgb 9.8 L Hct 30.8 L MCV 91.9 D MCH 29.4 MCHC 32.0 L RDW 16.7 H Plt Count 45 L D MPV 9.8 Neut % (Auto) 92.6 H Lymph % (Auto) 4.7 L [place] % (Auto) 2.4 Eos % (Auto) 0.1 Baso % (Auto) 0.2 Neut # 23.5 H Lymph # 1.2 [place] # 0.6 Eos # 0.0 Baso # 0.0 Neutrophils % (Manual) 86 H Band Neutrophils % 11 H* Lymphocytes % (Manual) 1 L Monocytes % (Manual) 2 Toxic Granulation Present Dohle Bodies Present Platelet Estimate Decreased L Anisocytosis (manual) Slight Ovalocytes Slight Puncture Site pCO2 pO2 HCO3 ABG pH ABG Total CO2 ABG O2 Saturation ABG Base Excess ABG Hemoglobin ABG Carboxyhemoglobin POC ABG HHb (Measured) ABG Methemoglobin Alek Test A-a O2 Difference Respiratory Index Hgb O2 Saturation Mechanical Rate FiO2 Tidal Volume PEEP Sodium 146 Potassium 3.9 Chloride 115 H Carbon Dioxide 12 L Anion Gap 23 H BUN 21 H Creatinine 1.6 H Est GFR ( Amer) 50 Est GFR (Non-Af Amer) 41 POC Glucose (mg/dL) Random Glucose 99 Calcium 7.5 L Phosphorus 4.1 Magnesium 2.3 Total Bilirubin 2.8 H AST 380 H D ALT 119 H D Alkaline Phosphatase 97 Total Protein 5.0 L Albumin 2.6 L Globulin 2.4 Albumin/Globulin Ratio 1.1 Fingerstick Blood Sugar Results: 116 Review of Systems - Review of Systems Systems not reviewed;Unavailable: Altered Mental Status Critical Care Progress Note - Nutrition Nutrition: Nutrition Category Date Time Status NPO Diet [DIET] Diets 06/14/16 Dinner Active Assessment/Plan - Assessment and Plan (Free Text) Assessment: 85 M with a past medical history of anemia, 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 Continued rectal bleeding, with episode of hematemesis on 06/14. Coded during GI bleeding scan. CTA showed active colonic bleeding. SMA embolization performed by IR. Currently, intubated. Plan: Neuro: Neurochecks q 6 Intubated Propofol for sedation Optho: Latanoprost OU HS LASHA Cardio: Levophed: 3 mcg/min Vasopressin: 0.04 u/min 06/14 Code during Bleeding scan. Afib w. RVR. Vtach. ACLS, Shocked once, epi x 2. Pulm: Pt intubated and sedated, to be weaned Vent settings: Rate 14, TV 500, Peep: 5, FIO2: 50%, O2: 95% ABG: ph 7.33, pO2: 111, HCO3: 19.6, O2 sat: 99.6 on ventilation -Continue bicarb drip CXR (06/18): Persistent diffuse confluent b/l airspace opacities in both lungs most prominent in right perihilar and left lung base. Biapical pleural thickening with upper lobe granulomatous changes. Scattered nodularity in both lung rey. Questionable small left pleural effusion (see full report). Endo: Diabetes Sliding scale - Novolog Accucheck q6 Maintain Euglycemia GI: 06/03 EGD: 2 cm hiatal hernia present. one large non-bleeding ulcer with clean ulcer base Class III found at duodenal bulb spanning duodenal sweep. improved compared to prior examination without any stigmata of recent bleeding. 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 Post-op diagnosis: marah esophagitis, duodenal ulcer, gastritis, hiatal hernia. 06/04 Colonoscopy: no active bleed, hemorrhoids, ulcerated mucosa at anastomosis site 06/05 GI Bleeding scan: findings suggestive of active GI bleeding likely at large bowel splenic flexure that extends to the descending colon. 06/06 Colonoscopy - per GI - 15 cc of epinephrine 0.1 mg/ml injections at ulcerated ileocolonic anastomotic site along with electro cautery for hemostasis. 06/14: Vomited derek blood twice. Large passage of blood rectally x 2. During bleeding scan coded, went in to Vtach. Vomiting dark blood during intubation. Required 4 units of blood, 2 FFP, 1 unit platelets. Angio showed active bleed in colon in branches of SMA supplying region of surgical kevan, embolization performed by IR. Surgery, Dr. Crane: OR for colectomy if pt bleeds again GI: Given O blood group, consider DDAVP infusion if pt rebleeds; No further endoscopies planned Elevated LFTs - secondary to hypotension/shock liver - Bolus of 1L NS Start Tube feedings -Isosource 1.5 @10ml/hr, goal:50ml/hr : Decreasing urine output Monitor I/Os Renal: Elevated BUN/Cr - secondary to hypotension/shock - bolus of 1L Monitor I/Os Daily CMP Heme: Hgb 9.8, stable from 9.5 yesterday Platelets 45, decreased from 66 - Transfused one unit of platelets Daily CBC MSK: PT/OT eval deferred due to low Hgb ID: sacral wound WBC: 25.4 today, elevated but slightly down from yesterday - recent elevation, possible aspiration PNA from intubation aspirition - neutrophil bands downtrending, 12 today from 40s yesterday - Primaxin 500mg IV Q8H - Diflucan 100mg/50 ml NS 50 cc @ 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 VTE contraindicated bc of GI bleed GI: PPI IV daily <Tobi Laguna - Last Filed: 06/18/16 17:13> CCU Objective - Vital Signs / Intake & Output Vital Signs (Last 4 hours): Vital Signs Pulse Resp BP Pulse Ox 06/18/16 14:40 82 17 123/66 99 06/18/16 13:13 82 14 108/62 100 Intake and Output (Last 8hrs): Intake & Output 06/18/16 06/18/16 06/18/16 06:59 14:59 22:59 Intake Total 619.2 564.8 Output Total 160 90 Balance 459.2 474.8 Weight 180 lb Intake: Intake, IV Amount 619.2 564.8 Right Distal Port PICC 400 350 Right Medial Port PICC 100 48 y port of righgt arm 100 150 PICC Right Arm 19.2 16.8 Output: Gastric Amount 15 Stomach 15 Urine 145 90 Urethral (Cardenas) 145 90 Other: # Bowel Movements 0 0 - Medications Active Medications: Active Medications Generic Name Dose Route Start Last Admin Trade Name Freq PRN Reason Stop Dose Admin Acetaminophen 650 mg 06/18/16 15:15 Tylenol 325mg Tab PO Q6 PRN Fever >100.4 F Fluconazole 50 mls @ 100 mls/hr 06/04/16 10:00 06/18/16 09:57 Diflucan Iv 100 Mg/50 Ml Ns IVPB 100 mls/hr DAILY LASHA Administration Propofol 100 mls @ 2.443 mls/hr 06/15/16 10:18 06/17/16 08:30 Diprivan IV 0 mcg/kg/min .Q24H PRN Titration TITRATE PER MD ORDER Protocol 5 MCG/KG/MIN Vasopressin 40 units/ Sodium 40 mls @ 2.4 mls/hr 06/15/16 10:30 06/18/16 05:53 Chloride IV Not Given .[id number] LASHA 0.04 UNITS/MIN Norepinephrine Bitartrate 16 266 mls @ 3.99 mls/hr 06/15/16 10:25 06/18/16 14: 40 mg/ Sodium Chloride IV 2.99 mls/hr .Q24H PRN Administration TITRATE PER MD ORDER Protocol 4 MCG/MIN Imipenem/Cilastatin Sodium 500 100 mls @ 100 mls/hr 06/15/16 17:00 06/18/16 08: 34 mg/ Sodium Chloride IVPB 100 mls/hr Q8H LASHA Administration Sodium Bicarbonate 100 meq/ 1,000 mls @ 50 mls/hr 06/17/16 09:45 06/18/16 12:01 Sodium Chloride IV 50 mls/hr .Q20H LASHA Administration Latanoprost 0 ml 05/22/16 22:00 06/17/16 21:38 Xalatan Opht OU 2.5 ml HS LASHA Administration Pantoprazole Sodium 40 mg 06/11/16 10:00 06/18/16 11:59 Protonix Inj IVP 40 mg DAILY LASHA Administration - Patient Studies Lab Studies: Microbiology Studies 06/16/16 01:16 Urine Culture - Final Urine,Cardenas Proteus Mirabilis 06/16/16 06:00 Blood Culture - Final Blood Enterobacter Cloacae Gram Stain - Final 06/16/16 05:30 Blood Culture - Final Blood Enterobacter Cloacae Ssp Cloac Gram Stain - Final Lab Studies 06/18/16 06/18/16 06/18/16 Range/Units 11:43 06:06 05:41 WBC 25.4 H (4.8-10.8) K/uL RBC 3.35 L (4.40-5.90) Mil/uL Hgb 9.8 L (12.0-18.0) g/dL Hct 30.8 L (35.0-51.0) % MCV 91.9 D (80.0-94.0) fL MCH 29.4 (27.0-31.0) pg MCHC 32.0 L (33.0-37.0) g/dL RDW 16.7 H (11.5-14.5) % Plt Count 45 L D (130-400) K/uL MPV 9.8 (7.2-11.7) fL Neut % (Auto) 92.6 H (50.0-75.0) % Lymph % (Auto) 4.7 L (20.0-40.0) % [place] % (Auto) 2.4 (0.0-10.0) % Eos % (Auto) 0.1 (0.0-4.0) % Baso % (Auto) 0.2 (0.0-2.0) % Neut # 23.5 H (1.8-7.0) K/uL Lymph # 1.2 (1.0-4.3) K/uL [place] # 0.6 (0.0-0.8) K/uL Eos # 0.0 (0.0-0.7) K/uL Baso # 0.0 (0.0-0.2) K/uL Neutrophils % (Manual) 86 H (50-75) % Band Neutrophils % 11 H* (0-2) % Lymphocytes % (Manual) 1 L (20-40) % Monocytes % (Manual) 2 (0-10) % Toxic Granulation Present Dohle Bodies Present Platelet Estimate Decreased L (NORMAL) Anisocytosis (manual) Slight Ovalocytes Slight Puncture Site pCO2 (35-45) mm/Hg pO2 (80-100) mm/Hg HCO3 (21-28) mmol/L ABG pH (7.35-7.45) ABG Total CO2 (22-28) mmol/L ABG O2 Saturation (95-98) % ABG Base Excess (-2.0-3.0) mmol/L ABG Hemoglobin (11.7-17.4) g/dL ABG Carboxyhemoglobin (0.5-1.5) % POC ABG HHb (Measured) (0.0-5.0) % ABG Methemoglobin (0.0-3.0) % Alek Test A-a O2 Difference mm/Hg Respiratory Index Hgb O2 Saturation (95.0-98.0) % Mechanical Rate FiO2 % Tidal Volume PEEP Sodium 146 (132-148) mmol/L Potassium 3.9 (3.6-5.2) mmol/L Chloride 115 H (98-107) mmol/L Carbon Dioxide 12 L (22-30) mmol/L Anion Gap 23 H (10-20) BUN 21 H (9-20) mg/dL Creatinine 1.6 H (0.8-1.5) MG/DL Est GFR ( Amer) 50 Est GFR (Non-Af Amer) 41 POC Glucose (mg/dL) 101 116 H (65-110) mg/dL Random Glucose 99 (75-110) mg/dL Calcium 7.5 L (8.6-10.4) mg/dl Phosphorus 4.1 (2.5-4.5) mg/dL Magnesium 2.3 (1.6-2.3) mg/dL Total Bilirubin 2.8 H (0.2-1.3) mg/dL AST 380 H D (17-59) U/L ALT 119 H D (21-72) U/L Alkaline Phosphatase 97 (38-126) U/L Total Protein 5.0 L (6.3-8.3) g/dL Albumin 2.6 L (3.5-5.0) g/dL Globulin 2.4 (2.2-3.9) gm/dL Albumin/Globulin Ratio 1.1 (1.0-2.1) 04/02/2206/17/16 06/17/16 Range/Units 05:26 23:52 17:44 WBC (4.8-10.8) K/uL RBC (4.40-5.90) Mil/uL Hgb (12.0-18.0) g/dL Hct (35.0-51.0) % MCV (80.0-94.0) fL MCH (27.0-31.0) pg MCHC (33.0-37.0) g/dL RDW (11.5-14.5) % Plt Count (130-400) K/uL MPV (7.2-11.7) fL Neut % (Auto) (50.0-75.0) % Lymph % (Auto) (20.0-40.0) % [place] % (Auto) (0.0-10.0) % Eos % (Auto) (0.0-4.0) % Baso % (Auto) (0.0-2.0) % Neut # (1.8-7.0) K/uL Lymph # (1.0-4.3) K/uL [place] # (0.0-0.8) K/uL Eos # (0.0-0.7) K/uL Baso # (0.0-0.2) K/uL Neutrophils % (Manual) (50-75) % Band Neutrophils % (0-2) % Lymphocytes % (Manual) (20-40) % Monocytes % (Manual) (0-10) % Toxic Granulation Dohle Bodies Platelet Estimate (NORMAL) Anisocytosis (manual) Ovalocytes Puncture Site [place] pCO2 28 L (35-45) mm/Hg pO2 184 H (80-100) mm/Hg HCO3 16.4 L (21-28) mmol/L ABG pH 7.31 L (7.35-7.45) ABG Total CO2 15.0 L (22-28) mmol/L ABG O2 Saturation 99.7 H (95-98) % ABG Base Excess -10.9 L (-2.0-3.0) mmol/L ABG Hemoglobin 9.9 L (11.7-17.4) g/dL ABG Carboxyhemoglobin 1.2 (0.5-1.5) % POC ABG HHb (Measured) 0.3 (0.0-5.0) % ABG Methemoglobin 1.3 (0.0-3.0) % Alek Test Pos A-a O2 Difference 138.0 mm/Hg Respiratory Index 0.8 Hgb O2 Saturation 97.1 (95.0-98.0) % Mechanical Rate 14 FiO2 50.0 % Tidal Volume 500 PEEP 5 Sodium (132-148) mmol/L Potassium (3.6-5.2) mmol/L Chloride (98-107) mmol/L Carbon Dioxide (22-30) mmol/L Anion Gap (10-20) BUN (9-20) mg/dL Creatinine (0.8-1.5) MG/DL Est GFR ( Amer) Est GFR (Non-Af Amer) POC Glucose (mg/dL) 126 H 107 (65-110) mg/dL Random Glucose (75-110) mg/dL Calcium (8.6-10.4) mg/dl Phosphorus (2.5-4.5) mg/dL Magnesium (1.6-2.3) mg/dL Total Bilirubin (0.2-1.3) mg/dL AST (17-59) U/L ALT (21-72) U/L Alkaline Phosphatase (38-126) U/L Total Protein (6.3-8.3) g/dL Albumin (3.5-5.0) g/dL Globulin (2.2-3.9) gm/dL Albumin/Globulin Ratio (1.0-2.1) Laboratory Results - last 24 hr 06/17/16 06/17/16 06/18/16 17:44 23:52 05:26 WBC RBC Hgb Hct MCV MCH MCHC RDW Plt Count MPV Neut % (Auto) Lymph % (Auto) [place] % (Auto) Eos % (Auto) Baso % (Auto) Neut # Lymph # [place] # Eos # Baso # Neutrophils % (Manual) Band Neutrophils % Lymphocytes % (Manual) Monocytes % (Manual) Toxic Granulation Dohle Bodies Platelet Estimate Anisocytosis (manual) Ovalocytes Puncture Site [place] pCO2 28 L pO2 184 H HCO3 16.4 L ABG pH 7.31 L ABG Total CO2 15.0 L ABG O2 Saturation 99.7 H ABG Base Excess -10.9 L ABG Hemoglobin 9.9 L ABG Carboxyhemoglobin 1.2 POC ABG HHb (Measured) 0.3 ABG Methemoglobin 1.3 [place]k Test Pos A-a O2 Difference 138.0 Respiratory Index 0.8 Hgb O2 Saturation 97.1 Mechanical Rate 14 FiO2 50.0 Tidal Volume 500 PEEP 5 Sodium Potassium Chloride Carbon Dioxide Anion Gap BUN Creatinine Est GFR ( Amer) Est GFR (Non-Af Amer) POC Glucose (mg/dL) 107 126 H Random Glucose Calcium Phosphorus Magnesium Total Bilirubin AST ALT Alkaline Phosphatase Total Protein Albumin Globulin Albumin/Globulin Ratio 06/18/16 06/18/16 06/18/16 05:41 06:06 11:43 WBC 25.4 H RBC 3.35 L Hgb 9.8 L Hct 30.8 L MCV 91.9 D MCH 29.4 MCHC 32.0 L RDW 16.7 H Plt Count 45 L D MPV 9.8 Neut % (Auto) 92.6 H Lymph % (Auto) 4.7 L [place] % (Auto) 2.4 Eos % (Auto) 0.1 Baso % (Auto) 0.2 Neut # 23.5 H Lymph # 1.2 [place] # 0.6 Eos # 0.0 Baso # 0.0 Neutrophils % (Manual) 86 H Band Neutrophils % 11 H* Lymphocytes % (Manual) 1 L Monocytes % (Manual) 2 Toxic Granulation Present Dohle Bodies Present Platelet Estimate Decreased L Anisocytosis (manual) Slight Ovalocytes Slight Puncture Site pCO2 pO2 HCO3 ABG pH ABG Total CO2 ABG O2 Saturation ABG Base Excess ABG Hemoglobin ABG Carboxyhemoglobin POC ABG HHb (Measured) ABG Methemoglobin Alek Test A-a O2 Difference Respiratory Index Hgb O2 Saturation Mechanical Rate FiO2 Tidal Volume PEEP Sodium 146 Potassium 3.9 Chloride 115 H Carbon Dioxide 12 L Anion Gap 23 H BUN 21 H Creatinine 1.6 H Est GFR ( Amer) 50 Est GFR (Non-Af Amer) 41 POC Glucose (mg/dL) 116 H 101 Random Glucose 99 Calcium 7.5 L Phosphorus 4.1 Magnesium 2.3 Total Bilirubin 2.8 H AST 380 H D ALT 119 H D Alkaline Phosphatase 97 Total Protein 5.0 L Albumin 2.6 L Globulin 2.4 Albumin/Globulin Ratio 1.1 Critical Care Progress Note - Nutrition Nutrition: Nutrition Category Date Time Status NPO Diet [DIET] Diets 06/14/16 Dinner Active Assessment/Plan (1) Gastrointestinal hemorrhage Current Visit: Yes Status: Acute Comment: Transfuse packed RBCs as needed Transfuse 2 units of FFP Platelet count 107 with 94% platelets functional Possible surgery today or in the a.m. Continue Protonix (2) Anemia Current Visit: No Status: Acute Attending/Attestation - Attestation I have personally seen and examined this patient.: Yes I have fully participated in the care of the patient.: Yes I have reviewed all pertinent clinical information: Yes Notes (Text): 06/18/16 17:12 patient seen and examined in the intensive care unit. Case discussed with house staff in the morning rounds. remains intubated on ventilatory support FiO2 reduced to 40% Eyes open but does not follow any commands No active bleeding noted and H&H stable Remains on Levophed Transfuse one unit of platelets for thrombocytopenia case discussed with surgery
--- NOTE | 2016-06-18 14:07 | CP.PCM.PCO ---
Physician Communication Note - Physician Communication Note Physician Communication Note: Fam. meeting stephen at 11 am with son Rodger
--- NOTE | 2016-06-18 14:13 | CP.PCM.PN ---
Subjective - Date & Time of Evaluation Date of Evaluation: 06/18/16 Time of Evaluation: 14:07 - Subjective Subjective: Patient lethargyc, offers no complaints. Objective - Vital Signs/Intake and Output Vital Signs (last 24 hours): Temp Pulse Resp BP Pulse Ox 99 F 82 14 108/62 100 06/18/16 12:00 06/18/16 13:13 06/18/16 13:13 06/18/16 13:13 06/18/16 13:13 Intake and Output: 06/18/16 06/18/16 06:59 18:59 Intake Total 930.8 564.8 Output Total 230 90 Balance 700.8 474.8 - Medications Medications: Current Medications Fluconazole (Diflucan Iv 100 Mg/50 Ml Ns) 50 mls @ 100 mls/hr IVPB DAILY [facility] Last Admin: 06/18/16 09:57 Dose: 100 mls/hr Propofol (Diprivan) 100 mls @ 2.443 mls/hr IV .Q24H PRN; Protocol; 5 MCG/KG/MIN PRN Reason: TITRATE PER MD ORDER Last Titration: 06/17/16 08:30 Dose: 0 mcg/kg/min Vasopressin 40 units/ Sodium (Chloride) 40 mls @ 2.4 mls/hr IV .[id number] [facility] PRN Reason: 0.04 UNITS/MIN Last Admin: 06/18/16 05:53 Dose: Not Given Norepinephrine Bitartrate 16 (mg/ Sodium Chloride) 266 mls @ 3.99 mls/hr IV .Q24H PRN; Protocol; 4 MCG/MIN PRN Reason: TITRATE PER MD ORDER Last Titration: 06/18/16 11:30 Dose: 3 mcg/min Imipenem/Cilastatin Sodium 500 (mg/ Sodium Chloride) 100 mls @ 100 mls/hr IVPB Q8H [facility] Last Admin: 06/18/16 08:34 Dose: 100 mls/hr Sodium Bicarbonate 100 meq/ (Sodium Chloride) 1,000 mls @ 50 mls/hr IV .Q20H [facility] Last Admin: 06/18/16 12:01 Dose: 50 mls/hr Latanoprost (Xalatan Opht) 0 ml OU HS [facility] Last Admin: 06/17/16 21:38 Dose: 2.5 ml Pantoprazole Sodium (Protonix Inj) 40 mg IVP DAILY [facility] Last Admin: 06/18/16 11:59 Dose: 40 mg - Labs Labs: 06/18/16 06:06 06/18/16 06:06 PT 13.4 SECONDS (9.7-12.2) H 06/14/16 20:34 INR 1.2 06/14/16 20:34 APTT 45 SECONDS (21-34) H D 06/14/16 20:34 - Constitutional Appears: Chronically Ill - Head Exam Head Exam: ATRAUMATIC - Eye Exam Eye Exam: Normal appearance Pupil Exam: NORMAL ACCOMODATION - ENT Exam ENT Exam: Mucous Membranes Dry - Neck Exam Neck Exam: Normal Inspection Additional comments: Orally intubated - Respiratory Exam Additional comments: On MV - Cardiovascular Exam Cardiovascular Exam: Tachycardia - GI/Abdominal Exam GI & Abdominal Exam: Diminished Bowel Sounds - Rectal Exam Rectal Exam: Deferred - Exam Additional comments: Cardenas cath - Extremities Exam Extremities Exam: Pedal Edema - Back Exam Back Exam: NORMAL INSPECTION - Neurological Exam Neurological Exam: Alert, Altered Neuro motor strength exam: Left Upper Extremity: 2/1, Right Upper Extremity: 2/1 , Left Lower Extremity: 2/1, Right Lower Extremity: 2/1 - Psychiatric Exam Psychiatric exam: Flat Affect - Skin Skin Exam: Pallor Assessment and Plan - Assessment and Plan (Free Text) Plan: Patient examined in bed, looking very sick. Skin is darker than usual, sclera are yellowish, total Julien elevated at 2.8, and liver enzymes elevated as well. WBC 25.4 down from 29.2. Patient is afebrile on Difflucan and Primaxyn IV. BP supported by vasopressors, BP 108/62, HR 82. Patient is intubated, on 50% FiO2 and slightly sedated. Blood gasses show acidosis; Bicarbs on board.Patient keeps eyes open but does not interact. Upper and lower extremities are with moderate edema; Alb 2.4 and is being replaced. Record shows gained weight since admission, from 167 lb up to 180 lb today. Urine output decreased, 340 cc/ 24 hr. Hopefully will increase after the Albumin IV. As per nursing, colectomy is still pending due to patient's unstable condition. Patient is S/P multiple blood transfusion and S/P IR embolization procedures. Current hb 9.8. Colectomy is still the best option for relief of GI bleed . The surgeon requested to talk to patient's son directly . I spoke to patient's son Rodger today and requested family meeting for goals of care discussion. he agreed to 11 am tomorrow. Impression * Patient looks very sick, intubated on MV support * I feel that condition is very poor, and I am not sure if patient woud ever be strong enough for the colectomy procedure * The suggested colectomy for relief of GI bleed was not performed yet due to patient's condition * Patient looks septic, WBC 25.4 * General edema and weight gain Suggestion * Family meeting tomorrow at 11 am for goals of care discussion * Will attempt to involve surgeon and ICU Doctor to the family meeting for detailed planning of goals of care
[2016-06-18] MEDS ORDERED: Sodium Chloride 0.9% 500 ML IV ONE (15:02)
[2016-06-18 18:05] LABS: POTASSIUM 3.3 mmol/L (3.6-5.2)
[2016-06-18 18:09] LABS: CALCIUM 6.7 mg/dl (8.6-10.4)
--- NOTE | 2016-06-18 18:09 | CP.PCM.PN ---
Subjective - Date & Time of Evaluation Date of Evaluation: 06/18/16 Time of Evaluation: 14:20 - Subjective Subjective: clinically same Objective - Vital Signs/Intake and Output Vital Signs (last 24 hours): Temp Pulse Resp BP Pulse Ox 97.8 F 79 18 114/66 99 06/18/16 17:37 06/18/16 17:37 06/18/16 17:37 06/18/16 17:37 06/18/16 14:40 Intake and Output: 06/18/16 06/18/16 06:59 18:59 Intake Total 930.8 564.8 Output Total 230 90 Balance 700.8 474.8 - Medications Medications: Current Medications Acetaminophen (Tylenol 325mg Tab) 650 mg PO Q6 PRN PRN Reason: Fever >100.4 F Fluconazole (Diflucan Iv 100 Mg/50 Ml Ns) 50 mls @ 100 mls/hr IVPB DAILY [facility] Last Admin: 06/18/16 09:57 Dose: 100 mls/hr Propofol (Diprivan) 100 mls @ 2.443 mls/hr IV .Q24H PRN; Protocol; 5 MCG/KG/MIN PRN Reason: TITRATE PER MD ORDER Last Titration: 06/17/16 08:30 Dose: 0 mcg/kg/min Vasopressin 40 units/ Sodium (Chloride) 40 mls @ 2.4 mls/hr IV .[id number] [facility] PRN Reason: 0.04 UNITS/MIN Last Admin: 06/18/16 05:53 Dose: Not Given Norepinephrine Bitartrate 16 (mg/ Sodium Chloride) 266 mls @ 3.99 mls/hr IV .Q24H PRN; Protocol; 4 MCG/MIN PRN Reason: TITRATE PER MD ORDER Last Admin: 06/18/16 14:40 Dose: 2.99 mls/hr Imipenem/Cilastatin Sodium 500 (mg/ Sodium Chloride) 100 mls @ 100 mls/hr IVPB Q8H [facility] Last Admin: 06/18/16 17:21 Dose: 100 mls/hr Sodium Bicarbonate 100 meq/ (Sodium Chloride) 1,000 mls @ 50 mls/hr IV .Q20H [facility] Last Admin: 06/18/16 12:01 Dose: 50 mls/hr Latanoprost (Xalatan Opht) 0 ml OU HS [facility] Last Admin: 06/17/16 21:38 Dose: 2.5 ml Pantoprazole Sodium (Protonix Inj) 40 mg IVP DAILY [facility] Last Admin: 06/18/16 11:59 Dose: 40 mg - Labs Labs: 06/18/16 06:06 06/18/16 06:06 PT 13.4 SECONDS (9.7-12.2) H 06/14/16 20:34 INR 1.2 06/14/16 20:34 APTT 45 SECONDS (21-34) H D 06/14/16 20:34 - Constitutional Appears: Well - Head Exam Head Exam: ATRAUMATIC, NORMAL INSPECTION, NORMOCEPHALIC - Eye Exam Eye Exam: EOMI, Normal appearance, PERRL Pupil Exam: NORMAL ACCOMODATION, PERRL - ENT Exam ENT Exam: Mucous Membranes Moist, Normal Exam - Neck Exam Neck Exam: Full ROM, Normal Inspection. absent: Lymphadenopathy - Respiratory Exam Respiratory Exam: Decreased Breath Sounds - Cardiovascular Exam Cardiovascular Exam: REGULAR RHYTHM, +S1, +S2 - GI/Abdominal Exam GI & Abdominal Exam: Soft, Diminished Bowel Sounds - Rectal Exam Rectal Exam: Deferred Assessment and Plan (1) Acute renal failure Status: Acute (2) Anemia Status: Acute (3) BPH (benign prostatic hyperplasia) Status: Acute (4) Bilateral edema of lower extremity Status: Acute (5) DVT prophylaxis Status: Acute (6) Dry gangrene Status: Acute (7) Gastrointestinal hemorrhage Status: Acute (8) Hypochromic microcytic anemia Status: Acute (9) Hypovolemic shock Status: Acute (10) Memory difficulty Status: Acute (11) Paresthesia of both lower extremities Status: Acute (12) Pneumonia Status: Acute (13) CHF (congestive heart failure) Status: Chronic (14) Diabetes mellitus Status: Chronic - Assessment and Plan (Free Text) Plan: f/u with GI f/u with ID f/u with mailroom manager f/u with General surgeon continue monitor H/H Vasopressin Norepinephrine protonix Novolog
[2016-06-18] MEDS ORDERED: Desmopressin 20 MCG in Sodium Chloride 0.9% 50 ML IV ONE (18:15)
[2016-06-18 18:17] LABS: HEMATOCRIT 25.4 % (35.0-51.0); MEAN CELL VOLUME 91.1 fL (80.0-94.0); MEAN CORPUSCULAR HEMOGLOBIN 29.5 pg (27.0-31.0); MEAN CORPUSCULAR HGB CONC 32.4 g/dL (33.0-37.0); MEAN PLATELET VOLUME 9.4 fL (7.2-11.7); RED CELL DISTRIBUTION WIDTH 16.7 % (11.5-14.5)
[2016-06-18 18:18] LABS: WHITE BLOOD COUNT 12.3 K/uL (4.8-10.8)
[2016-06-18] MEDS ORDERED: Potassium Chloride 20 mEq 100 ML IVPB ONE ×2 (18:18→22:00)
[2016-06-18 19:06] LABS: VENOUS BLOOD GAS PCO2 36 mmHg (40-60); VENOUS BLOOD PH 7.28 (7.32-7.43)
[2016-06-18] MEDS: Latanoprost 2.5 ml Opht Soln OU SCH (21:55)
[2016-06-19 05:49] LABS: ABG ALLEN TEST POS; ABG MECHANICAL RATE 14; ARTERIAL BLOOD HGB O2 SAT 97.3 % (95.0-98.0); ATERIAL BLOOD GAS PEEP 5; CARBOXYHEMOGLOBIN 1.5 % (0.5-1.5); DRAW SITE LRAD; HHB 0.3 % (0.0-5.0); METHEMOGLOBIN 0.9 % (0.0-3.0)
[2016-06-19] MEDS ORDERED: Dextrose 50% SYRINGE Inj (50 ml) IV PRN (06:14)
[2016-06-19 06:48] LABS: BASO % 0.2 % (0.0-2.0); EOS # 0.2 K/uL (0.0-0.7); EOS % 1.5 % (0.0-4.0); HEMATOCRIT 32.5 % (35.0-51.0); LYMPH # 0.8 K/uL (1.0-4.3); LYMPH % 6.1 % (20.0-40.0); MEAN CELL VOLUME 90.8 fL (80.0-94.0); MEAN CORPUSCULAR HEMOGLOBIN 29.1 pg (27.0-31.0); MEAN CORPUSCULAR HGB CONC 32.1 g/dL (33.0-37.0); MEAN PLATELET VOLUME 8.5 fL (7.2-11.7); MONO # 0.7 K/uL (0.0-0.8); MONO % 5.1 % (0.0-10.0); NRBC % 0.6 % (0.0-2.0); PLATELET COUNT 91 K/uL (130-400); RED CELL DISTRIBUTION WIDTH 16.8 % (11.5-14.5); WHITE BLOOD COUNT 13.4 K/uL (4.8-10.8)
[2016-06-19 07:02] LABS: POTASSIUM 3.8 mmol/L (3.6-5.2)
[2016-06-19 07:04] LABS: ALB/GLOB RATIO 1.1 (1.0-2.1); PHOSPHOROUS 4.8 mg/dL (2.5-4.5); TOTAL PROTEIN 5.7 g/dL (6.3-8.3)
[2016-06-19 07:05] LABS: CALCIUM 7.8 mg/dl (8.6-10.4); MAGNESIUM 2.3 mg/dL (1.6-2.3)
[2016-06-19 07:15] LABS: INR 1.7
[2016-06-19 08:05] LABS: METAMYELOCYTE 2 % (0-0); MYELOCYTE 3 % (0-0); NEUTROPHIL 74 % (50-75); NUCLEATED RED BLOOD CELL 2 % (0-0); REACTIVE LYMPHOCYTES 1 % (0-0); TOTAL CELLS COUNTED 100
--- NOTE | 2016-06-19 08:12 | CP.CCUPN ---
<Leobardo Meneses - Last Filed: 06/19/16 13:36> CCU Subjective - Physician Review Subjective (Free Text): 06/19/16 8:05 Pt seen and examined at bedside. He remains intubated and sedated. Yesterday, pt had large bloody bowel movement. Stat CBC at the time showed decrease in hemoglobin from 9.8 to 8.2. Pt was given two units of PRBCs, FFP, and platelets. Surgical attending, Dr. Crane, spoke to family employee relations representative, pt son, Rodger. Family meeting was scheduled for this morning. Result of family meeting was to elect against surgical treatment, and make patient DNR/DNI and remove him from mechanical ventilation. Terminal extubation today. Patient is currently on Levophed 5 mcg/min, vasopressin 0.04 u/min. FIO2 decreased to 40%. Hemoglobin this morning uptrended to 10.4. Platelets improved from 45 yesterday morning, to 91 today. Unable to obtain ROS at this time due to pt condition. Critical Care Time Spent (in minutes): 38 CCU Objective - Vital Signs / Intake & Output Vital Signs (Last 4 hours): Vital Signs Temp Pulse Resp BP Pulse Ox 06/19/16 07:36 86 20 120/75 100 06/19/16 07:21 113 H 25 H 112/79 100 06/19/16 07:06 114 H 20 119/73 100 06/19/16 07:00 116 H 22 100 06/19/16 06:51 84 22 124/83 97 06/19/16 06:36 85 22 125/80 95 06/19/16 06:29 85 21 96 06/19/16 06:21 85 22 119/72 96 06/19/16 06:06 114 H 21 103/71 99 06/19/16 06:00 83 22 97 06/19/16 05:51 81 21 115/73 98 06/19/16 05:36 92 H 23 121/77 98 06/19/16 05:21 86 20 114/74 98 06/19/16 05:06 98.5 F 87 22 112/78 92 L 06/19/16 05:00 84 18 81 L 06/19/16 04:51 90 26 H 109/80 93 L 06/19/16 04:36 87 22 115/76 96 06/19/16 04:21 96 H 25 H 118/79 97 06/19/16 04:06 92 H 23 119/78 97 06/19/16 04:00 98.8 F 93 H 23 97 Intake and Output (Last 8hrs): Intake & Output 06/18/16 06/19/16 06/19/16 22:59 06:59 14:59 Intake Total 1339.2 2391.2 414.4 Output Total 18 300 Balance 1321.2 2091.2 414.4 Weight 184 lb Intake: Intake, IV Amount 711.2 457.2 57.4 Right Distal Port PICC 500 400 50 Right Medial Port PICC 42 38 5 y port of righgt arm 150 PICC right medial port Y 19.2 19.2 2.4 Blood Product 528 1684 307 Red Blood Cells Cpd As1 325 Lr Unit [id number] Apheresis Rbc Cp2d As3 Lr 277 2nd Unit [id number] Apheresis Plts Acda Lr 203 3rd Con Unit [id number] Other 100 250 50 Red Blood Cells Cpd As1 50 Lr Unit [id number] Apheresis Rbc Cp2d As3 Lr 50 2nd Unit [id number] Apheresis Plts Acda Lr 50 3rd Con Unit [id number] Output: Gastric Amount 150 Stomach 150 Urine 18 150 Urethral (Cardenas) 18 150 Other: # Bowel Movements 1 1 - Physical Exam Head: Positive for: Atraumatic, Normocephalic. Negative for: Swelling Pupils: Positive for: PERRL Extroacular Muscles: Positive for: EOMI Conjunctiva: Positive for: Normal Mouth: Positive for: Dry Respiratory/Chest: Positive for: Good Air Exchange, Rhonchi (scattered throughout lung rey). Negative for: Wheezes Cardiovascular: Positive for: Normal S1, S2 Abdomen: Positive for: Normal Bowel Sounds. Negative for: Peritoneal Signs Back: Positive for: Normal Inspection Upper Extremity: Positive for: Normal Inspection Lower Extremity: Positive for: Edema (trace pedal edema) Neurological: Positive for: Other (AMS) Skin: Positive for: Warm, Dry Psychiatric: Positive for: Alert, Lethargic. Negative for: Oriented x 3 - Medications Active Medications: Active Medications Generic Name Dose Route Start Last Admin Trade Name Freq PRN Reason Stop Dose Admin Acetaminophen 650 mg 06/18/16 15:15 Tylenol 325mg Tab PO Q6 PRN Fever >100.4 F Dextrose 0 ml 06/19/16 06:14 06/19/16 06:20 Dextrose 50% Inj IV 50 ml STAT PRN Administration Hyglycemia Protocol Protocol Fluconazole 50 mls @ 100 mls/hr 06/04/16 10:00 06/18/16 09:57 Diflucan Iv 100 Mg/50 Ml Ns IVPB 100 mls/hr DAILY LASHA Administration Propofol 100 mls @ 2.443 mls/hr 06/15/16 10:18 06/17/16 08:30 Diprivan IV 0 mcg/kg/min .Q24H PRN Titration TITRATE PER MD ORDER Protocol 5 MCG/KG/MIN Vasopressin 40 units/ Sodium 40 mls @ 2.4 mls/hr 06/15/16 10:30 06/19/16 00:01 Chloride IV Not Given .[id number] LASHA 0.04 UNITS/MIN Norepinephrine Bitartrate 16 266 mls @ 3.99 mls/hr 06/15/16 10:25 06/19/16 06: 28 mg/ Sodium Chloride IV 5.01 mcg/min .Q24H PRN Titration TITRATE PER MD ORDER Protocol 4 MCG/MIN Imipenem/Cilastatin Sodium 500 100 mls @ 100 mls/hr 06/15/16 17:00 06/19/16 01: 00 mg/ Sodium Chloride IVPB 100 mls/hr Q8H LASHA Administration Sodium Bicarbonate 100 meq/ 1,000 mls @ 50 mls/hr 06/17/16 09:45 06/18/16 12:01 Sodium Chloride IV 50 mls/hr .Q20H LASHA Administration Dextrose 1,000 mls @ 100 mls/hr 06/19/16 07:15 Dextrose 5% In Water 1000 Ml IV .Q10H LASHA Latanoprost 0 ml 05/22/16 22:00 06/18/16 21:55 Xalatan Opht OU 2.5 ml HS LASHA Administration Pantoprazole Sodium 40 mg 06/11/16 10:00 06/18/16 11:59 Protonix Inj IVP 40 mg DAILY LASHA Administration - Patient Studies Lab Studies: Microbiology Studies 06/16/16 01:16 Urine Culture - Final Urine,Cardenas Proteus Mirabilis 06/16/16 06:00 Blood Culture - Final Blood Enterobacter Cloacae Gram Stain - Final 06/16/16 05:30 Blood Culture - Final Blood Enterobacter Cloacae Ssp Cloac Gram Stain - Final Lab Studies 06/19/16 06/19/16 06/19/16 Range/Units 06:48 06:41 06:12 WBC 13.4 H (4.8-10.8) K/uL RBC 3.58 L (4.40-5.90) Mil/uL Hgb 10.4 L D (12.0-18.0) g/dL Hct 32.5 L (35.0-51.0) % MCV 90.8 (80.0-94.0) fL MCH 29.1 (27.0-31.0) pg MCHC 32.1 L (33.0-37.0) g/dL RDW 16.8 H (11.5-14.5) % Plt Count 91 L D (130-400) K/uL MPV 8.5 (7.2-11.7) fL Neut % (Auto) 87.1 H (50.0-75.0) % Lymph % (Auto) 6.1 L (20.0-40.0) % [place] % (Auto) 5.1 (0.0-10.0) % Eos % (Auto) 1.5 (0.0-4.0) % Baso % (Auto) 0.2 (0.0-2.0) % Neut # 11.7 H (1.8-7.0) K/uL Lymph # 0.8 L (1.0-4.3) K/uL [place] # 0.7 (0.0-0.8) K/uL Eos # 0.2 (0.0-0.7) K/uL Baso # 0.0 (0.0-0.2) K/uL Neutrophils % (Manual) (50-75) % Band Neutrophils % (0-2) % Lymphocytes % (Manual) (20-40) % Monocytes % (Manual) (0-10) % Toxic Granulation Dohle Bodies Platelet Estimate (NORMAL) Anisocytosis (manual) Ovalocytes PT 19.4 H (9.7-12.2) SECONDS INR 1.7 APTT 39 H D (21-34) SECONDS Puncture Site pCO2 (35-45) mm/Hg pO2 (80-100) mm/Hg HCO3 (21-28) mmol/L ABG pH (7.35-7.45) ABG Total CO2 (22-28) mmol/L ABG O2 Saturation (95-98) % ABG Base Excess (-2.0-3.0) mmol/L ABG Hemoglobin (11.7-17.4) g/dL ABG Carboxyhemoglobin (0.5-1.5) % POC ABG HHb (Measured) (0.0-5.0) % ABG Methemoglobin (0.0-3.0) % Alek Test VBG pH (7.32-7.43) VBG pCO2 (40-60) mmHg VBG HCO3 mmol/L VBG Total CO2 (22-28) mmol/L VBG O2 Sat (Calc) (40-65) % VBG Base Excess (0.0-2.0) mmol/L VBG Potassium (3.6-5.2) mmol/L A-a O2 Difference mm/Hg Respiratory Index Hgb O2 Saturation (95.0-98.0) % Glucose (75-110) mg/dl Lactate (0.7-2.1) mmol/L Mechanical Rate FiO2 % Tidal Volume PEEP Sodium 150 H (132-148) mmol/L Potassium 3.8 (3.6-5.2) mmol/L Chloride 114 H (98-107) mmol/L Carbon Dioxide 13 L (22-30) mmol/L Anion Gap 27 H (10-20) BUN 24 H (9-20) mg/dL Creatinine 2.0 H (0.8-1.5) MG/DL Est GFR ( Amer) 39 Est GFR (Non-Af Amer) 32 POC Glucose (mg/dL) 176 H 59 L (65-110) mg/dL Random Glucose 59 L (75-110) mg/dL Calcium 7.8 L (8.6-10.4) mg/dl Phosphorus 4.8 H (2.5-4.5) mg/dL Magnesium 2.3 (1.6-2.3) mg/dL Total Bilirubin 5.0 H (0.2-1.3) mg/dL AST 1207 H (17-59) U/L ALT 377 H D (21-72) U/L Alkaline Phosphatase 93 (38-126) U/L Total Protein 5.7 L (6.3-8.3) g/dL Albumin 3.0 L (3.5-5.0) g/dL Globulin 2.7 (2.2-3.9) gm/dL Albumin/Globulin Ratio 1.1 (1.0-2.1) Venous Blood Potassium (3.6-5.2) mmol/L Blood Type Antibody Screen 06/19/16 06/18/16 06/18/16 Range/Units 05:36 23:38 19:53 WBC (4.8-10.8) K/uL RBC (4.40-5.90) Mil/uL Hgb (12.0-18.0) g/dL Hct (35.0-51.0) % MCV (80.0-94.0) fL MCH (27.0-31.0) pg MCHC (33.0-37.0) g/dL RDW (11.5-14.5) % Plt Count (130-400) K/uL MPV (7.2-11.7) fL Neut % (Auto) (50.0-75.0) % Lymph % (Auto) (20.0-40.0) % [place] % (Auto) (0.0-10.0) % Eos % (Auto) (0.0-4.0) % Baso % (Auto) (0.0-2.0) % Neut # (1.8-7.0) K/uL Lymph # (1.0-4.3) K/uL [place] # (0.0-0.8) K/uL Eos # (0.0-0.7) K/uL Baso # (0.0-0.2) K/uL Neutrophils % (Manual) (50-75) % Band Neutrophils % (0-2) % Lymphocytes % (Manual) (20-40) % Monocytes % (Manual) (0-10) % Toxic Granulation Dohle Bodies Platelet Estimate (NORMAL) Anisocytosis (manual) Ovalocytes PT 22.9 H (9.7-12.2) SECONDS INR 2.0 APTT 53 H (21-34) SECONDS Puncture Site Lrad pCO2 25 L (35-45) mm/Hg pO2 130 H (80-100) mm/Hg HCO3 14.4 L (21-28) mmol/L ABG pH 7.28 L (7.35-7.45) ABG Total CO2 12.5 L (22-28) mmol/L ABG O2 Saturation 99.7 H (95-98) % ABG Base Excess -13.5 L (-2.0-3.0) mmol/L ABG Hemoglobin 10.4 L (11.7-17.4) g/dL ABG Carboxyhemoglobin 1.5 (0.5-1.5) % POC ABG HHb (Measured) 0.3 (0.0-5.0) % ABG Methemoglobin 0.9 (0.0-3.0) % Alek Test Pos VBG pH (7.32-7.43) VBG pCO2 (40-60) mmHg VBG HCO3 mmol/L VBG Total CO2 (22-28) mmol/L VBG O2 Sat (Calc) (40-65) % VBG Base Excess (0.0-2.0) mmol/L VBG Potassium (3.6-5.2) mmol/L A-a O2 Difference 124.0 mm/Hg Respiratory Index 1.0 Hgb O2 Saturation 97.3 (95.0-98.0) % Glucose (75-110) mg/dl Lactate (0.7-2.1) mmol/L Mechanical Rate 14 FiO2 40.0 % Tidal Volume 500 PEEP 5 Sodium (132-148) mmol/L Potassium (3.6-5.2) mmol/L Chloride (98-107) mmol/L Carbon Dioxide (22-30) mmol/L Anion Gap (10-20) BUN (9-20) mg/dL Creatinine (0.8-1.5) MG/DL Est GFR ( Amer) Est GFR (Non-Af Amer) POC Glucose (mg/dL) 89 (65-110) mg/dL Random Glucose (75-110) mg/dL Calcium (8.6-10.4) mg/dl Phosphorus (2.5-4.5) mg/dL Magnesium (1.6-2.3) mg/dL Total Bilirubin (0.2-1.3) mg/dL AST (17-59) U/L ALT (21-72) U/L Alkaline Phosphatase (38-126) U/L Total Protein (6.3-8.3) g/dL Albumin (3.5-5.0) g/dL Globulin (2.2-3.9) gm/dL Albumin/Globulin Ratio (1.0-2.1) Venous Blood Potassium (3.6-5.2) mmol/L Blood Type Antibody Screen 06/18/16 06/18/16 06/18/16 Range/Units 19:00 18:36 18:14 WBC 12.3 H D (4.8-10.8) K/uL RBC 2.79 L (4.40-5.90) Mil/uL Hgb 8.2 L (12.0-18.0) g/dL Hct 25.4 L (35.0-51.0) % MCV 91.1 (80.0-94.0) fL MCH 29.5 (27.0-31.0) pg MCHC 32.4 L (33.0-37.0) g/dL RDW 16.7 H (11.5-14.5) % Plt Count 45 L (130-400) K/uL MPV 9.4 (7.2-11.7) fL Neut % (Auto) (50.0-75.0) % Lymph % (Auto) (20.0-40.0) % [place] % (Auto) (0.0-10.0) % Eos % (Auto) (0.0-4.0) % Baso % (Auto) (0.0-2.0) % Neut # (1.8-7.0) K/uL Lymph # (1.0-4.3) K/uL [place] # (0.0-0.8) K/uL Eos # (0.0-0.7) K/uL Baso # (0.0-0.2) K/uL Neutrophils % (Manual) (50-75) % Band Neutrophils % (0-2) % Lymphocytes % (Manual) (20-40) % Monocytes % (Manual) (0-10) % Toxic Granulation Dohle Bodies Platelet Estimate (NORMAL) Anisocytosis (manual) Ovalocytes PT (9.7-12.2) SECONDS INR APTT (21-34) SECONDS Puncture Site pCO2 (35-45) mm/Hg pO2 36 (80-100) mm/Hg HCO3 (21-28) mmol/L ABG pH (7.35-7.45) ABG Total CO2 (22-28) mmol/L ABG O2 Saturation (95-98) % ABG Base Excess (-2.0-3.0) mmol/L ABG Hemoglobin (11.7-17.4) g/dL ABG Carboxyhemoglobin (0.5-1.5) % POC ABG HHb (Measured) (0.0-5.0) % ABG Methemoglobin (0.0-3.0) % Alek Test VBG pH 7.28 L (7.32-7.43) VBG pCO2 36 L (40-60) mmHg VBG HCO3 16.9 mmol/L VBG Total CO2 18.0 L (22-28) mmol/L VBG O2 Sat (Calc) 75.2 H (40-65) % VBG Base Excess -9.0 L (0.0-2.0) mmol/L VBG Potassium 3.4 L (3.6-5.2) mmol/L A-a O2 Difference mm/Hg Respiratory Index Hgb O2 Saturation (95.0-98.0) % Glucose 90 (75-110) mg/dl Lactate 3.4 H (0.7-2.1) mmol/L Mechanical Rate FiO2 21.0 % Tidal Volume PEEP Sodium 148.0 (132-148) mmol/L Potassium (3.6-5.2) mmol/L Chloride 122.0 H (98-107) mmol/L Carbon Dioxide (22-30) mmol/L Anion Gap (10-20) BUN (9-20) mg/dL Creatinine (0.8-1.5) MG/DL Est GFR ( Amer) Est GFR (Non-Af Amer) POC Glucose (mg/dL) (65-110) mg/dL Random Glucose (75-110) mg/dL Calcium (8.6-10.4) mg/dl Phosphorus (2.5-4.5) mg/dL Magnesium (1.6-2.3) mg/dL Total Bilirubin (0.2-1.3) mg/dL AST (17-59) U/L ALT (21-72) U/L Alkaline Phosphatase (38-126) U/L Total Protein (6.3-8.3) g/dL Albumin (3.5-5.0) g/dL Globulin (2.2-3.9) gm/dL Albumin/Globulin Ratio (1.0-2.1) Venous Blood Potassium 3.4 L (3.6-5.2) mmol/L Blood Type O POSITIVE Antibody Screen Negative 06/18/16 06/18/16 06/18/16 Range/Units 17:57 17:53 11:43 WBC (4.8-10.8) K/uL RBC (4.40-5.90) Mil/uL Hgb (12.0-18.0) g/dL Hct (35.0-51.0) % MCV (80.0-94.0) fL MCH (27.0-31.0) pg MCHC (33.0-37.0) g/dL RDW (11.5-14.5) % Plt Count (130-400) K/uL MPV (7.2-11.7) fL Neut % (Auto) (50.0-75.0) % Lymph % (Auto) (20.0-40.0) % [place] % (Auto) (0.0-10.0) % Eos % (Auto) (0.0-4.0) % Baso % (Auto) (0.0-2.0) % Neut # (1.8-7.0) K/uL Lymph # (1.0-4.3) K/uL [place] # (0.0-0.8) K/uL Eos # (0.0-0.7) K/uL Baso # (0.0-0.2) K/uL Neutrophils % (Manual) (50-75) % Band Neutrophils % (0-2) % Lymphocytes % (Manual) (20-40) % Monocytes % (Manual) (0-10) % Toxic Granulation Dohle Bodies Platelet Estimate (NORMAL) Anisocytosis (manual) Ovalocytes PT (9.7-12.2) SECONDS INR APTT (21-34) SECONDS Puncture Site pCO2 (35-45) mm/Hg pO2 (80-100) mm/Hg HCO3 (21-28) mmol/L ABG pH (7.35-7.45) ABG Total CO2 (22-28) mmol/L ABG O2 Saturation (95-98) % ABG Base Excess (-2.0-3.0) mmol/L ABG Hemoglobin (11.7-17.4) g/dL ABG Carboxyhemoglobin (0.5-1.5) % POC ABG HHb (Measured) (0.0-5.0) % ABG Methemoglobin (0.0-3.0) % Alek Test VBG pH (7.32-7.43) VBG pCO2 (40-60) mmHg VBG HCO3 mmol/L VBG Total CO2 (22-28) mmol/L VBG O2 Sat (Calc) (40-65) % VBG Base Excess (0.0-2.0) mmol/L VBG Potassium (3.6-5.2) mmol/L A-a O2 Difference mm/Hg Respiratory Index Hgb O2 Saturation (95.0-98.0) % Glucose (75-110) mg/dl Lactate (0.7-2.1) mmol/L Mechanical Rate FiO2 % Tidal Volume PEEP Sodium 148 (132-148) mmol/L Potassium 3.3 L (3.6-5.2) mmol/L Chloride 114 H (98-107) mmol/L Carbon Dioxide 15 L (22-30) mmol/L Anion Gap 22 H (10-20) BUN 21 H (9-20) mg/dL Creatinine 1.6 H (0.8-1.5) MG/DL Est GFR ( Amer) 50 Est GFR (Non-Af Amer) 41 POC Glucose (mg/dL) 100 101 (65-110) mg/dL Random Glucose 81 (75-110) mg/dL Calcium 6.7 L (8.6-10.4) mg/dl Phosphorus (2.5-4.5) mg/dL Magnesium (1.6-2.3) mg/dL Total Bilirubin (0.2-1.3) mg/dL AST (17-59) U/L ALT (21-72) U/L Alkaline Phosphatase (38-126) U/L Total Protein (6.3-8.3) g/dL Albumin (3.5-5.0) g/dL Globulin (2.2-3.9) gm/dL Albumin/Globulin Ratio (1.0-2.1) Venous Blood Potassium (3.6-5.2) mmol/L Blood Type Antibody Screen 06/18/16 Range/Units 06:06 WBC (4.8-10.8) K/uL RBC (4.40-5.90) Mil/uL Hgb (12.0-18.0) g/dL Hct (35.0-51.0) % MCV (80.0-94.0) fL MCH (27.0-31.0) pg MCHC (33.0-37.0) g/dL RDW (11.5-14.5) % Plt Count (130-400) K/uL MPV (7.2-11.7) fL Neut % (Auto) (50.0-75.0) % Lymph % (Auto) (20.0-40.0) % [place] % (Auto) (0.0-10.0) % Eos % (Auto) (0.0-4.0) % Baso % (Auto) (0.0-2.0) % Neut # (1.8-7.0) K/uL Lymph # (1.0-4.3) K/uL [place] # (0.0-0.8) K/uL Eos # (0.0-0.7) K/uL Baso # (0.0-0.2) K/uL Neutrophils % (Manual) 86 H (50-75) % Band Neutrophils % 11 H* (0-2) % Lymphocytes % (Manual) 1 L (20-40) % Monocytes % (Manual) 2 (0-10) % Toxic Granulation Present Dohle Bodies Present Platelet Estimate Decreased L (NORMAL) Anisocytosis (manual) Slight Ovalocytes Slight PT (9.7-12.2) SECONDS INR APTT (21-34) SECONDS Puncture Site pCO2 (35-45) mm/Hg pO2 (80-100) mm/Hg HCO3 (21-28) mmol/L ABG pH (7.35-7.45) ABG Total CO2 (22-28) mmol/L ABG O2 Saturation (95-98) % ABG Base Excess (-2.0-3.0) mmol/L ABG Hemoglobin (11.7-17.4) g/dL ABG Carboxyhemoglobin (0.5-1.5) % POC ABG HHb (Measured) (0.0-5.0) % ABG Methemoglobin (0.0-3.0) % Alek Test VBG pH (7.32-7.43) VBG pCO2 (40-60) mmHg VBG HCO3 mmol/L VBG Total CO2 (22-28) mmol/L VBG O2 Sat (Calc) (40-65) % VBG Base Excess (0.0-2.0) mmol/L VBG Potassium (3.6-5.2) mmol/L A-a O2 Difference mm/Hg Respiratory Index Hgb O2 Saturation (95.0-98.0) % Glucose (75-110) mg/dl Lactate (0.7-2.1) mmol/L Mechanical Rate FiO2 % Tidal Volume PEEP Sodium (132-148) mmol/L Potassium (3.6-5.2) mmol/L Chloride (98-107) mmol/L Carbon Dioxide (22-30) mmol/L Anion Gap (10-20) BUN (9-20) mg/dL Creatinine (0.8-1.5) MG/DL Est GFR ( Amer) Est GFR (Non-Af Amer) POC Glucose (mg/dL) (65-110) mg/dL Random Glucose (75-110) mg/dL Calcium (8.6-10.4) mg/dl Phosphorus (2.5-4.5) mg/dL Magnesium (1.6-2.3) mg/dL Total Bilirubin (0.2-1.3) mg/dL AST (17-59) U/L ALT (21-72) U/L Alkaline Phosphatase (38-126) U/L Total Protein (6.3-8.3) g/dL Albumin (3.5-5.0) g/dL Globulin (2.2-3.9) gm/dL Albumin/Globulin Ratio (1.0-2.1) Venous Blood Potassium (3.6-5.2) mmol/L Blood Type Antibody Screen Laboratory Results - last 24 hr 06/18/16 06/18/16 06/18/16 06:06 11:43 17:53 WBC RBC Hgb Hct MCV MCH MCHC RDW Plt Count MPV Neut % (Auto) Lymph % (Auto) [place] % (Auto) Eos % (Auto) Baso % (Auto) Neut # Lymph # [place] # Eos # Baso # Neutrophils % (Manual) 86 H Band Neutrophils % 11 H* Lymphocytes % (Manual) 1 L Monocytes % (Manual) 2 Toxic Granulation Present Dohle Bodies Present Platelet Estimate Decreased L Anisocytosis (manual) Slight Ovalocytes Slight PT INR APTT Puncture Site pCO2 pO2 HCO3 ABG pH ABG Total CO2 ABG O2 Saturation ABG Base Excess ABG Hemoglobin ABG Carboxyhemoglobin POC ABG HHb (Measured) ABG Methemoglobin Alek Test VBG pH VBG pCO2 VBG HCO3 VBG Total CO2 VBG O2 Sat (Calc) VBG Base Excess VBG Potassium A-a O2 Difference Respiratory Index Hgb O2 Saturation Glucose Lactate Mechanical Rate FiO2 Tidal Volume PEEP Sodium Potassium Chloride Carbon Dioxide Anion Gap BUN Creatinine Est GFR ( Amer) Est GFR (Non-Af Amer) POC Glucose (mg/dL) 101 100 Random Glucose Calcium Phosphorus Magnesium Total Bilirubin AST ALT Alkaline Phosphatase Total Protein Albumin Globulin Albumin/Globulin Ratio Venous Blood Potassium Blood Type Antibody Screen 06/18/16 06/18/16 06/18/16 17:57 18:14 18:36 WBC 12.3 H D RBC 2.79 L Hgb 8.2 L Hct 25.4 L MCV 91.1 MCH 29.5 MCHC 32.4 L RDW 16.7 H Plt Count 45 L MPV 9.4 Neut % (Auto) Lymph % (Auto) [place] % (Auto) Eos % (Auto) Baso % (Auto) Neut # Lymph # [place] # Eos # Baso # Neutrophils % (Manual) Band Neutrophils % Lymphocytes % (Manual) Monocytes % (Manual) Toxic Granulation Dohle Bodies Platelet Estimate Anisocytosis (manual) Ovalocytes PT INR APTT Puncture Site pCO2 pO2 HCO3 ABG pH ABG Total CO2 ABG O2 Saturation ABG Base Excess ABG Hemoglobin ABG Carboxyhemoglobin POC ABG HHb (Measured) ABG Methemoglobin Alek Test VBG pH VBG pCO2 VBG HCO3 VBG Total CO2 VBG O2 Sat (Calc) VBG Base Excess VBG Potassium A-a O2 Difference Respiratory Index Hgb O2 Saturation Glucose Lactate Mechanical Rate FiO2 Tidal Volume PEEP Sodium 148 Potassium 3.3 L Chloride 114 H Carbon Dioxide 15 L Anion Gap 22 H BUN 21 H Creatinine 1.6 H Est GFR ( Amer) 50 Est GFR (Non-Af Amer) 41 POC Glucose (mg/dL) Random Glucose 81 Calcium 6.7 L Phosphorus Magnesium Total Bilirubin AST ALT Alkaline Phosphatase Total Protein Albumin Globulin Albumin/Globulin Ratio Venous Blood Potassium Blood Type O POSITIVE Antibody Screen Negative 06/18/16 06/18/16 06/18/16 19:00 19:53 23:38 WBC RBC Hgb Hct MCV MCH MCHC RDW Plt Count MPV Neut % (Auto) Lymph % (Auto) [place] % (Auto) Eos % (Auto) Baso % (Auto) Neut # Lymph # [place] # Eos # Baso # Neutrophils % (Manual) Band Neutrophils % Lymphocytes % (Manual) Monocytes % (Manual) Toxic Granulation Dohle Bodies Platelet Estimate Anisocytosis (manual) Ovalocytes PT 22.9 H INR 2.0 APTT 53 H Puncture Site pCO2 pO2 36 HCO3 ABG pH ABG Total CO2 ABG O2 Saturation ABG Base Excess ABG Hemoglobin ABG Carboxyhemoglobin POC ABG HHb (Measured) ABG Methemoglobin Alek Test VBG pH 7.28 L VBG pCO2 36 L VBG HCO3 16.9 VBG Total CO2 18.0 L VBG O2 Sat (Calc) 75.2 H VBG Base Excess -9.0 L VBG Potassium 3.4 L A-a O2 Difference Respiratory Index Hgb O2 Saturation Glucose 90 Lactate 3.4 H Mechanical Rate FiO2 21.0 Tidal Volume PEEP Sodium 148.0 Potassium Chloride 122.0 H Carbon Dioxide Anion Gap BUN Creatinine Est GFR ( Amer) Est GFR (Non-Af Amer) POC Glucose (mg/dL) 89 Random Glucose Calcium Phosphorus Magnesium Total Bilirubin AST ALT Alkaline Phosphatase Total Protein Albumin Globulin Albumin/Globulin Ratio Venous Blood Potassium 3.4 L Blood Type Antibody Screen 06/19/16 06/19/16 06/19/16 05:36 06:12 06:41 WBC 13.4 H RBC 3.58 L Hgb 10.4 L D Hct 32.5 L MCV 90.8 MCH 29.1 MCHC 32.1 L RDW 16.8 H Plt Count 91 L D MPV 8.5 Neut % (Auto) 87.1 H Lymph % (Auto) 6.1 L [place] % (Auto) 5.1 Eos % (Auto) 1.5 Baso % (Auto) 0.2 Neut # 11.7 H Lymph # 0.8 L [place] # 0.7 Eos # 0.2 Baso # 0.0 Neutrophils % (Manual) Band Neutrophils % Lymphocytes % (Manual) Monocytes % (Manual) Toxic Granulation Dohle Bodies Platelet Estimate Anisocytosis (manual) Ovalocytes PT 19.4 H INR 1.7 APTT 39 H D Puncture Site Lrad pCO2 25 L pO2 130 H HCO3 14.4 L ABG pH 7.28 L ABG Total CO2 12.5 L ABG O2 Saturation 99.7 H ABG Base Excess -13.5 L ABG Hemoglobin 10.4 L ABG Carboxyhemoglobin 1.5 POC ABG HHb (Measured) 0.3 ABG Methemoglobin 0.9 Alek Test Pos VBG pH VBG pCO2 VBG HCO3 VBG Total CO2 VBG O2 Sat (Calc) VBG Base Excess VBG Potassium A-a O2 Difference 124.0 Respiratory Index 1.0 Hgb O2 Saturation 97.3 Glucose Lactate Mechanical Rate 14 FiO2 40.0 Tidal Volume 500 PEEP 5 Sodium 150 H Potassium 3.8 Chloride 114 H Carbon Dioxide 13 L Anion Gap 27 H BUN 24 H Creatinine 2.0 H Est GFR ( Amer) 39 Est GFR (Non-Af Amer) 32 POC Glucose (mg/dL) 59 L Random Glucose 59 L Calcium 7.8 L Phosphorus 4.8 H Magnesium 2.3 Total Bilirubin 5.0 H AST 1207 H ALT 377 H D Alkaline Phosphatase 93 Total Protein 5.7 L Albumin 3.0 L Globulin 2.7 Albumin/Globulin Ratio 1.1 Venous Blood Potassium Blood Type Antibody Screen 06/19/16 06:48 WBC RBC Hgb Hct MCV MCH MCHC RDW Plt Count MPV Neut % (Auto) Lymph % (Auto) [place] % (Auto) Eos % (Auto) Baso % (Auto) Neut # Lymph # [place] # Eos # Baso # Neutrophils % (Manual) Band Neutrophils % Lymphocytes % (Manual) Monocytes % (Manual) Toxic Granulation Dohle Bodies Platelet Estimate Anisocytosis (manual) Ovalocytes PT INR APTT Puncture Site pCO2 pO2 HCO3 ABG pH ABG Total CO2 ABG O2 Saturation ABG Base Excess ABG Hemoglobin ABG Carboxyhemoglobin POC ABG HHb (Measured) ABG Methemoglobin Alek Test VBG pH VBG pCO2 VBG HCO3 VBG Total CO2 VBG O2 Sat (Calc) VBG Base Excess VBG Potassium A-a O2 Difference Respiratory Index Hgb O2 Saturation Glucose Lactate Mechanical Rate FiO2 Tidal Volume PEEP Sodium Potassium Chloride Carbon Dioxide Anion Gap BUN Creatinine Est GFR ( Amer) Est GFR (Non-Af Amer) POC Glucose (mg/dL) 176 H Random Glucose Calcium Phosphorus Magnesium Total Bilirubin AST ALT Alkaline Phosphatase Total Protein Albumin Globulin Albumin/Globulin Ratio Venous Blood Potassium Blood Type Antibody Screen Fingerstick Blood Sugar Results: 65 Review of Systems - Review of Systems Systems not reviewed;Unavailable: Altered Mental Status Critical Care Progress Note - Nutrition Nutrition: Nutrition Category Date Time Status NPO Diet [DIET] Diets 06/14/16 Dinner Active Assessment/Plan - Assessment and Plan (Free Text) Assessment: 85 M with a past medical history of anemia, 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 Multiple episodes of GI bleed. CTA showed active colonic bleeding. SMA embolization performed by IR. Currently, intubated with worsening clinical status. Code status has been changed to reflect family's wishes. Pt has been made DNR/DNI. Plan: Palliative: Patient's family has changed code status to DNR/DNI. Family does not want any further diagnostic testings, surgeries, IV antibiotics, or blood transfusion. Terminal extubation scheduled for time of family choosing today. (see palliative care note) Neuro: Neurochecks q 6 Intubated Propofol for sedation Optho: Latanoprost OU HS LASHA Cardio: Levophed: 5 mcg/min Vasopressin: 0.04 u/min 06/14 Code during Bleeding scan. Afib w. RVR. Vtach. ACLS, Shocked once, epi x 2. Cardiology, Dr. Jade, has signed off Pulm: Pt intubated and sedated 06/19: Terminal extubation today per family's wishes Vent settings: Rate 14, TV 500, Peep: 5, FIO2: 40%, O2: 99% ABG: ph 7.28, pO2: 130, HCO3: 14.4 - Acidosis worsening - Continue bicarb drip CXR (06/19): Worsening diffuse confluent b/l airspace opacities in both lungs, most prominent in right perihilar and left lung base. Biapical pleural thickening with upper lobe granulomatous changes. Worsening left pleural effusion (see full report). Endo: Diabetes Sliding scale - Novolog Accucheck q6 Maintain Euglycemia GI: 06/03 EGD: 2 cm hiatal hernia present. one large non-bleeding ulcer with clean ulcer base Class III found at duodenal bulb spanning duodenal sweep. improved compared to prior examination without any stigmata of recent bleeding. 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 Post-op diagnosis: maarh esophagitis, duodenal ulcer, gastritis, hiatal hernia. 06/04 Colonoscopy: no active bleed, hemorrhoids, ulcerated mucosa at anastomosis site 06/05 GI Bleeding scan: findings suggestive of active GI bleeding likely at large bowel splenic flexure that extends to the descending colon. 06/06 Colonoscopy - per GI - 15 cc of epinephrine 0.1 mg/ml injections at ulcerated ileocolonic anastomotic site along with electro cautery for hemostasis. 06/14: Vomited derek blood twice. Large passage of blood rectally x 2. During bleeding scan coded, went in to Vtach. Vomiting dark blood during intubation. Required 4 units of blood, 2 FFP, 1 unit platelets. Angio showed active bleed in colon in branches of SMA supplying region of surgical kevan, embolization performed by IR. 06/18: Large passage of blood rectally. Pt transfused 2 units each of PRBCs/FFP/ platelets. Surgery, Dr. Crane: OR for colectomy if pt bleeds again GI: Given O blood group, consider DDAVP infusion if pt rebleeds; No further endoscopies planned Elevated LFTs - secondary to hypotension/shock liver - Bolus of 1L NS Start Tube feedings -Isosource 1.5 @10ml/hr, goal:50ml/hr : Decreasing urine output Monitor I/Os Renal: Elevated BUN/Cr - secondary to hypotension/shock Monitor I/Os Daily CMP Heme: Hgb 10.4, s/p 2 prbc yesterday Platelets 94, s/p 3 units of platelets transfused yesterday Daily CBC MSK: PT/OT eval deferred due to low Hgb ID: Due to pts worsening clinical status, family has elected to stop IV antibiotics WBC: 13.4 today, elevated but decreased from yesterday - bands decreasing - recent elevation, possible aspiration PNA from intubation aspirition - Blood cx (06/16): Enterobacter cloacae - sensitive to Primaxin - Urine Cx (06/16): Proteus mirabilis MRSA positive nares Prophylaxis: DVT: SCDs. VTE contraindicated bc of GI bleed GI: PPI IV daily <Osvaldo Silva - Last Filed: 06/19/16 17:20> CCU Objective - Vital Signs / Intake & Output Vital Signs (Last 4 hours): Vital Signs Temp Pulse Resp BP Pulse Ox 06/19/16 16:00 97.8 F 112 H 22 112/61 99 06/19/16 15:00 113 H 23 113/59 L 100 06/19/16 14:00 114 H 21 125/78 99 Intake and Output (Last 8hrs): Intake & Output 06/19/16 06/19/16 06/19/16 06:59 14:59 22:59 Intake Total 2391.2 951.6 155.9 Output Total 300 Balance 2091.2 951.6 155.9 Weight 184 lb Intake: Intake, IV Amount 457.2 594.6 155.9 Right Distal Port PICC 400 400 150 Right Medial Port PICC 38 35.0 5.9 Right External Jugular 150 right medial port Y 19.2 9.6 Blood Product 1684 307 Apheresis Rbc Cp2d As3 Lr 277 2nd Unit [id number] Other 250 50 Apheresis Rbc Cp2d As3 Lr 50 2nd Unit [id number] Output: Gastric Amount 150 Stomach 150 Urine 150 Urethral (Cardenas) 150 Other: # Bowel Movements 1 - Medications Active Medications: Active Medications Generic Name Dose Route Start Last Admin Trade Name Freq PRN Reason Stop Dose Admin Acetaminophen 650 mg 06/18/16 15:15 Tylenol 325mg Tab PO Q6 PRN Fever >100.4 F Dextrose 0 ml 06/19/16 06:14 06/19/16 06:20 Dextrose 50% Inj IV 50 ml STAT PRN Administration Hyglycemia Protocol Protocol Propofol 100 mls @ 2.443 mls/hr 06/15/16 10:18 06/17/16 08:30 Diprivan IV 0 mcg/kg/min .Q24H PRN Titration TITRATE PER MD ORDER Protocol 5 MCG/KG/MIN Vasopressin 40 units/ Sodium 40 mls @ 2.4 mls/hr 06/15/16 10:30 06/19/16 14:38 Chloride IV Not Given .[id number] LASHA 0.04 UNITS/MIN Norepinephrine Bitartrate 16 266 mls @ 3.99 mls/hr 06/15/16 10:25 06/19/16 16: 19 mg/ Sodium Chloride IV 2 mcg/min .Q24H PRN Titration TITRATE PER MD ORDER Protocol 4 MCG/MIN Sodium Bicarbonate 100 meq/ 1,000 mls @ 50 mls/hr 06/19/16 09:00 06/19/16 09:29 Dextrose IV 50 mls/hr .Q20H LASHA Administration Latanoprost 0 ml 05/22/16 22:00 06/18/16 21:55 Xalatan Opht OU 2.5 ml HS LASHA Administration Pantoprazole Sodium 40 mg 06/11/16 10:00 06/19/16 09:31 Protonix Inj IVP 40 mg DAILY LASHA Administration - Patient Studies Lab Studies: Lab Studies 06/19/16 06/19/16 06/19/16 Range/Units 11:46 06:48 06:41 WBC 13.4 H (4.8-10.8) K/uL RBC 3.58 L (4.40-5.90) Mil/uL Hgb 10.4 L D (12.0-18.0) g/dL Hct 32.5 L (35.0-51.0) % MCV 90.8 (80.0-94.0) fL MCH 29.1 (27.0-31.0) pg MCHC 32.1 L (33.0-37.0) g/dL RDW 16.8 H (11.5-14.5) % Plt Count 91 L D (130-400) K/uL MPV 8.5 (7.2-11.7) fL Neut % (Auto) 87.1 H (50.0-75.0) % Lymph % (Auto) 6.1 L (20.0-40.0) % [place] % (Auto) 5.1 (0.0-10.0) % Eos % (Auto) 1.5 (0.0-4.0) % Baso % (Auto) 0.2 (0.0-2.0) % Neut # 11.7 H (1.8-7.0) K/uL Lymph # 0.8 L (1.0-4.3) K/uL [place] # 0.7 (0.0-0.8) K/uL Eos # 0.2 (0.0-0.7) K/uL Baso # 0.0 (0.0-0.2) K/uL Neutrophils % (Manual) 74 (50-75) % Band Neutrophils % 9 H (0-2) % Lymphocytes % (Manual) 4 L (20-40) % Reactive Lymphs % 1 H (0-0) % Monocytes % (Manual) 7 (0-10) % Metamyelocytes % 2 H (0-0) % Myelocytes % 3 H (0-0) % Nucleated RBC % 2 H (0-0) % Platelet Estimate Decreased L (NORMAL) Anisocytosis (manual) Slight Carlos Cells Slight PT 19.4 H (9.7-12.2) SECONDS INR 1.7 APTT 39 H D (21-34) SECONDS Puncture Site pCO2 (35-45) mm/Hg pO2 (80-100) mm/Hg HCO3 (21-28) mmol/L ABG pH (7.35-7.45) ABG Total CO2 (22-28) mmol/L ABG O2 Saturation (95-98) % ABG Base Excess (-2.0-3.0) mmol/L ABG Hemoglobin (11.7-17.4) g/dL ABG Carboxyhemoglobin (0.5-1.5) % POC ABG HHb (Measured) (0.0-5.0) % ABG Methemoglobin (0.0-3.0) % Alek Test VBG pH (7.32-7.43) VBG pCO2 (40-60) mmHg VBG HCO3 mmol/L VBG Total CO2 (22-28) mmol/L VBG O2 Sat (Calc) (40-65) % VBG Base Excess (0.0-2.0) mmol/L VBG Potassium (3.6-5.2) mmol/L A-a O2 Difference mm/Hg Respiratory Index Hgb O2 Saturation (95.0-98.0) % Glucose (75-110) mg/dl Lactate (0.7-2.1) mmol/L Mechanical Rate FiO2 % Tidal Volume PEEP Sodium 150 H (132-148) mmol/L Potassium 3.8 (3.6-5.2) mmol/L Chloride 114 H (98-107) mmol/L Carbon Dioxide 13 L (22-30) mmol/L Anion Gap 27 H (10-20) BUN 24 H (9-20) mg/dL Creatinine 2.0 H (0.8-1.5) MG/DL Est GFR ( Amer) 39 Est GFR (Non-Af Amer) 32 POC Glucose (mg/dL) 85 176 H (65-110) mg/dL Random Glucose 59 L (75-110) mg/dL Calcium 7.8 L (8.6-10.4) mg/dl Phosphorus 4.8 H (2.5-4.5) mg/dL Magnesium 2.3 (1.6-2.3) mg/dL Total Bilirubin 5.0 H (0.2-1.3) mg/dL AST 1207 H (17-59) U/L ALT 377 H D (21-72) U/L Alkaline Phosphatase 93 (38-126) U/L Total Protein 5.7 L (6.3-8.3) g/dL Albumin 3.0 L (3.5-5.0) g/dL Globulin 2.7 (2.2-3.9) gm/dL Albumin/Globulin Ratio 1.1 (1.0-2.1) Venous Blood Potassium (3.6-5.2) mmol/L Blood Type Antibody Screen 06/19/16 06/19/16 06/18/16 Range/Units 06:12 05:36 23:38 WBC (4.8-10.8) K/uL RBC (4.40-5.90) Mil/uL Hgb (12.0-18.0) g/dL Hct (35.0-51.0) % MCV (80.0-94.0) fL MCH (27.0-31.0) pg MCHC (33.0-37.0) g/dL RDW (11.5-14.5) % Plt Count (130-400) K/uL MPV (7.2-11.7) fL Neut % (Auto) (50.0-75.0) % Lymph % (Auto) (20.0-40.0) % [place] % (Auto) (0.0-10.0) % Eos % (Auto) (0.0-4.0) % Baso % (Auto) (0.0-2.0) % Neut # (1.8-7.0) K/uL Lymph # (1.0-4.3) K/uL [place] # (0.0-0.8) K/uL Eos # (0.0-0.7) K/uL Baso # (0.0-0.2) K/uL Neutrophils % (Manual) (50-75) % Band Neutrophils % (0-2) % Lymphocytes % (Manual) (20-40) % Reactive Lymphs % (0-0) % Monocytes % (Manual) (0-10) % Metamyelocytes % (0-0) % Myelocytes % (0-0) % Nucleated RBC % (0-0) % Platelet Estimate (NORMAL) Anisocytosis (manual) [place] Cells PT (9.7-12.2) SECONDS INR APTT (21-34) SECONDS Puncture Site Lrad pCO2 25 L (35-45) mm/Hg pO2 130 H (80-100) mm/Hg HCO3 14.4 L (21-28) mmol/L ABG pH 7.28 L (7.35-7.45) ABG Total CO2 12.5 L (22-28) mmol/L ABG O2 Saturation 99.7 H (95-98) % ABG Base Excess -13.5 L (-2.0-3.0) mmol/L ABG Hemoglobin 10.4 L (11.7-17.4) g/dL ABG Carboxyhemoglobin 1.5 (0.5-1.5) % POC ABG HHb (Measured) 0.3 (0.0-5.0) % ABG Methemoglobin 0.9 (0.0-3.0) % Alek Test Pos VBG pH (7.32-7.43) VBG pCO2 (40-60) mmHg VBG HCO3 mmol/L VBG Total CO2 (22-28) mmol/L VBG O2 Sat (Calc) (40-65) % VBG Base Excess (0.0-2.0) mmol/L VBG Potassium (3.6-5.2) mmol/L A-a O2 Difference 124.0 mm/Hg Respiratory Index 1.0 Hgb O2 Saturation 97.3 (95.0-98.0) % Glucose (75-110) mg/dl Lactate (0.7-2.1) mmol/L Mechanical Rate 14 FiO2 40.0 % Tidal Volume 500 PEEP 5 Sodium (132-148) mmol/L Potassium (3.6-5.2) mmol/L Chloride (98-107) mmol/L Carbon Dioxide (22-30) mmol/L Anion Gap (10-20) BUN (9-20) mg/dL Creatinine (0.8-1.5) MG/DL Est GFR ( Amer) Est GFR (Non-Af Amer) POC Glucose (mg/dL) 59 L 89 (65-110) mg/dL Random Glucose (75-110) mg/dL Calcium (8.6-10.4) mg/dl Phosphorus (2.5-4.5) mg/dL Magnesium (1.6-2.3) mg/dL Total Bilirubin (0.2-1.3) mg/dL AST (17-59) U/L ALT (21-72) U/L Alkaline Phosphatase (38-126) U/L Total Protein (6.3-8.3) g/dL Albumin (3.5-5.0) g/dL Globulin (2.2-3.9) gm/dL Albumin/Globulin Ratio (1.0-2.1) Venous Blood Potassium (3.6-5.2) mmol/L Blood Type Antibody Screen 06/18/16 06/18/16 06/18/16 Range/Units 19:53 19:00 18:36 WBC (4.8-10.8) K/uL RBC (4.40-5.90) Mil/uL Hgb (12.0-18.0) g/dL Hct (35.0-51.0) % MCV (80.0-94.0) fL MCH (27.0-31.0) pg MCHC (33.0-37.0) g/dL RDW (11.5-14.5) % Plt Count (130-400) K/uL MPV (7.2-11.7) fL Neut % (Auto) (50.0-75.0) % Lymph % (Auto) (20.0-40.0) % [place] % (Auto) (0.0-10.0) % Eos % (Auto) (0.0-4.0) % Baso % (Auto) (0.0-2.0) % Neut # (1.8-7.0) K/uL Lymph # (1.0-4.3) K/uL [place] # (0.0-0.8) K/uL Eos # (0.0-0.7) K/uL Baso # (0.0-0.2) K/uL Neutrophils % (Manual) (50-75) % Band Neutrophils % (0-2) % Lymphocytes % (Manual) (20-40) % Reactive Lymphs % (0-0) % Monocytes % (Manual) (0-10) % Metamyelocytes % (0-0) % Myelocytes % (0-0) % Nucleated RBC % (0-0) % Platelet Estimate (NORMAL) Anisocytosis (manual) [place] Cells PT 22.9 H (9.7-12.2) SECONDS INR 2.0 APTT 53 H (21-34) SECONDS Puncture Site pCO2 (35-45) mm/Hg pO2 36 (80-100) mm/Hg HCO3 (21-28) mmol/L ABG pH (7.35-7.45) ABG Total CO2 (22-28) mmol/L ABG O2 Saturation (95-98) % ABG Base Excess (-2.0-3.0) mmol/L ABG Hemoglobin (11.7-17.4) g/dL ABG Carboxyhemoglobin (0.5-1.5) % POC ABG HHb (Measured) (0.0-5.0) % ABG Methemoglobin (0.0-3.0) % Alek Test VBG pH 7.28 L (7.32-7.43) VBG pCO2 36 L (40-60) mmHg VBG HCO3 16.9 mmol/L VBG Total CO2 18.0 L (22-28) mmol/L VBG O2 Sat (Calc) 75.2 H (40-65) % VBG Base Excess -9.0 L (0.0-2.0) mmol/L VBG Potassium 3.4 L (3.6-5.2) mmol/L A-a O2 Difference mm/Hg Respiratory Index Hgb O2 Saturation (95.0-98.0) % Glucose 90 (75-110) mg/dl Lactate 3.4 H (0.7-2.1) mmol/L Mechanical Rate FiO2 21.0 % Tidal Volume PEEP Sodium 148.0 (132-148) mmol/L Potassium (3.6-5.2) mmol/L Chloride 122.0 H (98-107) mmol/L Carbon Dioxide (22-30) mmol/L Anion Gap (10-20) BUN (9-20) mg/dL Creatinine (0.8-1.5) MG/DL Est GFR ( Amer) Est GFR (Non-Af Amer) POC Glucose (mg/dL) (65-110) mg/dL Random Glucose (75-110) mg/dL Calcium (8.6-10.4) mg/dl Phosphorus (2.5-4.5) mg/dL Magnesium (1.6-2.3) mg/dL Total Bilirubin (0.2-1.3) mg/dL AST (17-59) U/L ALT (21-72) U/L Alkaline Phosphatase (38-126) U/L Total Protein (6.3-8.3) g/dL Albumin (3.5-5.0) g/dL Globulin (2.2-3.9) gm/dL Albumin/Globulin Ratio (1.0-2.1) Venous Blood Potassium 3.4 L (3.6-5.2) mmol/L Blood Type O POSITIVE Antibody Screen Negative 06/18/16 06/18/16 06/18/16 Range/Units 18:14 17:57 17:53 WBC 12.3 H D (4.8-10.8) K/uL RBC 2.79 L (4.40-5.90) Mil/uL Hgb 8.2 L (12.0-18.0) g/dL Hct 25.4 L (35.0-51.0) % MCV 91.1 (80.0-94.0) fL MCH 29.5 (27.0-31.0) pg MCHC 32.4 L (33.0-37.0) g/dL RDW 16.7 H (11.5-14.5) % Plt Count 45 L (130-400) K/uL MPV 9.4 (7.2-11.7) fL Neut % (Auto) (50.0-75.0) % Lymph % (Auto) (20.0-40.0) % [place] % (Auto) (0.0-10.0) % Eos % (Auto) (0.0-4.0) % Baso % (Auto) (0.0-2.0) % Neut # (1.8-7.0) K/uL Lymph # (1.0-4.3) K/uL [place] # (0.0-0.8) K/uL Eos # (0.0-0.7) K/uL Baso # (0.0-0.2) K/uL Neutrophils % (Manual) (50-75) % Band Neutrophils % (0-2) % Lymphocytes % (Manual) (20-40) % Reactive Lymphs % (0-0) % Monocytes % (Manual) (0-10) % Metamyelocytes % (0-0) % Myelocytes % (0-0) % Nucleated RBC % (0-0) % Platelet Estimate (NORMAL) Anisocytosis (manual) [place] Cells PT (9.7-12.2) SECONDS INR APTT (21-34) SECONDS Puncture Site pCO2 (35-45) mm/Hg pO2 (80-100) mm/Hg HCO3 (21-28) mmol/L ABG pH (7.35-7.45) ABG Total CO2 (22-28) mmol/L ABG O2 Saturation (95-98) % ABG Base Excess (-2.0-3.0) mmol/L ABG Hemoglobin (11.7-17.4) g/dL ABG Carboxyhemoglobin (0.5-1.5) % POC ABG HHb (Measured) (0.0-5.0) % ABG Methemoglobin (0.0-3.0) % Alek Test VBG pH (7.32-7.43) VBG pCO2 (40-60) mmHg VBG HCO3 mmol/L VBG Total CO2 (22-28) mmol/L VBG O2 Sat (Calc) (40-65) % VBG Base Excess (0.0-2.0) mmol/L VBG Potassium (3.6-5.2) mmol/L A-a O2 Difference mm/Hg Respiratory Index Hgb O2 Saturation (95.0-98.0) % Glucose (75-110) mg/dl Lactate (0.7-2.1) mmol/L Mechanical Rate FiO2 % Tidal Volume PEEP Sodium 148 (132-148) mmol/L Potassium 3.3 L (3.6-5.2) mmol/L Chloride 114 H (98-107) mmol/L Carbon Dioxide 15 L (22-30) mmol/L Anion Gap 22 H (10-20) BUN 21 H (9-20) mg/dL Creatinine 1.6 H (0.8-1.5) MG/DL Est GFR ( Amer) 50 Est GFR (Non-Af Amer) 41 POC Glucose (mg/dL) 100 (65-110) mg/dL Random Glucose 81 (75-110) mg/dL Calcium 6.7 L (8.6-10.4) mg/dl Phosphorus (2.5-4.5) mg/dL Magnesium (1.6-2.3) mg/dL Total Bilirubin (0.2-1.3) mg/dL AST (17-59) U/L ALT (21-72) U/L Alkaline Phosphatase (38-126) U/L Total Protein (6.3-8.3) g/dL Albumin (3.5-5.0) g/dL Globulin (2.2-3.9) gm/dL Albumin/Globulin Ratio (1.0-2.1) Venous Blood Potassium (3.6-5.2) mmol/L Blood Type Antibody Screen Laboratory Results - last 24 hr 06/18/16 06/18/16 06/18/16 17:53 17:57 18:14 WBC 12.3 H D RBC 2.79 L Hgb 8.2 L Hct 25.4 L MCV 91.1 MCH 29.5 MCHC 32.4 L RDW 16.7 H Plt Count 45 L MPV 9.4 Neut % (Auto) Lymph % (Auto) [place] % (Auto) Eos % (Auto) Baso % (Auto) Neut # Lymph # [place] # Eos # Baso # Neutrophils % (Manual) Band Neutrophils % Lymphocytes % (Manual) Reactive Lymphs % Monocytes % (Manual) Metamyelocytes % Myelocytes % Nucleated RBC % Platelet Estimate Anisocytosis (manual) Carlos Cells PT INR APTT Puncture Site pCO2 pO2 HCO3 ABG pH ABG Total CO2 ABG O2 Saturation ABG Base Excess ABG Hemoglobin ABG Carboxyhemoglobin POC ABG HHb (Measured) ABG Methemoglobin Alek Test VBG pH VBG pCO2 VBG HCO3 VBG Total CO2 VBG O2 Sat (Calc) VBG Base Excess VBG Potassium A-a O2 Difference Respiratory Index Hgb O2 Saturation Glucose Lactate Mechanical Rate FiO2 Tidal Volume PEEP Sodium 148 Potassium 3.3 L Chloride 114 H Carbon Dioxide 15 L Anion Gap 22 H BUN 21 H Creatinine 1.6 H Est GFR ( Amer) 50 Est GFR (Non-Af Amer) 41 POC Glucose (mg/dL) 100 Random Glucose 81 Calcium 6.7 L Phosphorus Magnesium Total Bilirubin AST ALT Alkaline Phosphatase Total Protein Albumin Globulin Albumin/Globulin Ratio Venous Blood Potassium Blood Type Antibody Screen 06/18/16 06/18/16 06/18/16 18:36 19:00 19:53 WBC RBC Hgb Hct MCV MCH MCHC RDW Plt Count MPV Neut % (Auto) Lymph % (Auto) [place] % (Auto) Eos % (Auto) Baso % (Auto) Neut # Lymph # [place] # Eos # Baso # Neutrophils % (Manual) Band Neutrophils % Lymphocytes % (Manual) Reactive Lymphs % Monocytes % (Manual) Metamyelocytes % Myelocytes % Nucleated RBC % Platelet Estimate Anisocytosis (manual) [place] Cells PT 22.9 H INR 2.0 APTT 53 H Puncture Site pCO2 pO2 36 HCO3 ABG pH ABG Total CO2 ABG O2 Saturation ABG Base Excess ABG Hemoglobin ABG Carboxyhemoglobin POC ABG HHb (Measured) ABG Methemoglobin Alek Test VBG pH 7.28 L VBG pCO2 36 L VBG HCO3 16.9 VBG Total CO2 18.0 L VBG O2 Sat (Calc) 75.2 H VBG Base Excess -9.0 L VBG Potassium 3.4 L A-a O2 Difference Respiratory Index Hgb O2 Saturation Glucose 90 Lactate 3.4 H Mechanical Rate FiO2 21.0 Tidal Volume PEEP Sodium 148.0 Potassium Chloride 122.0 H Carbon Dioxide Anion Gap BUN Creatinine Est GFR ( Amer) Est GFR (Non-Af Amer) POC Glucose (mg/dL) Random Glucose Calcium Phosphorus Magnesium Total Bilirubin AST ALT Alkaline Phosphatase Total Protein Albumin Globulin Albumin/Globulin Ratio Venous Blood Potassium 3.4 L Blood Type O POSITIVE Antibody Screen Negative 06/18/16 06/19/16 06/19/16 23:38 05:36 06:12 WBC RBC Hgb Hct MCV MCH MCHC RDW Plt Count MPV Neut % (Auto) Lymph % (Auto) [place] % (Auto) Eos % (Auto) Baso % (Auto) Neut # Lymph # [place] # Eos # Baso # Neutrophils % (Manual) Band Neutrophils % Lymphocytes % (Manual) Reactive Lymphs % Monocytes % (Manual) Metamyelocytes % Myelocytes % Nucleated RBC % Platelet Estimate Anisocytosis (manual) [place] Cells PT INR APTT Puncture Site [place] pCO2 25 L pO2 130 H HCO3 14.4 L ABG pH 7.28 L ABG Total CO2 12.5 L ABG O2 Saturation 99.7 H ABG Base Excess -13.5 L ABG Hemoglobin 10.4 L ABG Carboxyhemoglobin 1.5 POC ABG HHb (Measured) 0.3 ABG Methemoglobin 0.9 Alek Test Pos VBG pH VBG pCO2 VBG HCO3 VBG Total CO2 VBG O2 Sat (Calc) VBG Base Excess VBG Potassium A-a O2 Difference 124.0 Respiratory Index 1.0 Hgb O2 Saturation 97.3 Glucose Lactate Mechanical Rate 14 FiO2 40.0 Tidal Volume 500 PEEP 5 Sodium Potassium Chloride Carbon Dioxide Anion Gap BUN Creatinine Est GFR ( Amer) Est GFR (Non-Af Amer) POC Glucose (mg/dL) 89 59 L Random Glucose Calcium Phosphorus Magnesium Total Bilirubin AST ALT Alkaline Phosphatase Total Protein Albumin Globulin Albumin/Globulin Ratio Venous Blood Potassium Blood Type Antibody Screen 06/19/16 06/19/16 06/19/16 06:41 06:48 11:46 WBC 13.4 H RBC 3.58 L Hgb 10.4 L D Hct 32.5 L MCV 90.8 MCH 29.1 MCHC 32.1 L RDW 16.8 H Plt Count 91 L D MPV 8.5 Neut % (Auto) 87.1 H Lymph % (Auto) 6.1 L [place] % (Auto) 5.1 Eos % (Auto) 1.5 Baso % (Auto) 0.2 Neut # 11.7 H Lymph # 0.8 L [place] # 0.7 Eos # 0.2 Baso # 0.0 Neutrophils % (Manual) 74 Band Neutrophils % 9 H Lymphocytes % (Manual) 4 L Reactive Lymphs % 1 H Monocytes % (Manual) 7 Metamyelocytes % 2 H Myelocytes % 3 H Nucleated RBC % 2 H Platelet Estimate Decreased L Anisocytosis (manual) Slight Carlos Cells Slight PT 19.4 H INR 1.7 APTT 39 H D Puncture Site pCO2 pO2 HCO3 ABG pH ABG Total CO2 ABG O2 Saturation ABG Base Excess ABG Hemoglobin ABG Carboxyhemoglobin POC ABG HHb (Measured) ABG Methemoglobin Alek Test VBG pH VBG pCO2 VBG HCO3 VBG Total CO2 VBG O2 Sat (Calc) VBG Base Excess VBG Potassium A-a O2 Difference Respiratory Index Hgb O2 Saturation Glucose Lactate Mechanical Rate FiO2 Tidal Volume PEEP Sodium 150 H Potassium 3.8 Chloride 114 H Carbon Dioxide 13 L Anion Gap 27 H BUN 24 H Creatinine 2.0 H Est GFR ( Amer) 39 Est GFR (Non-Af Amer) 32 POC Glucose (mg/dL) 176 H 85 Random Glucose 59 L Calcium 7.8 L Phosphorus 4.8 H Magnesium 2.3 Total Bilirubin 5.0 H AST 1207 H ALT 377 H D Alkaline Phosphatase 93 Total Protein 5.7 L Albumin 3.0 L Globulin 2.7 Albumin/Globulin Ratio 1.1 Venous Blood Potassium Blood Type Antibody Screen Critical Care Progress Note - Nutrition Nutrition: Nutrition Category Date Time Status NPO Diet [DIET] Diets 06/14/16 Dinner Active Assessment/Plan (1) Gastrointestinal hemorrhage Current Visit: Yes Status: Acute Comment: Transfuse packed RBCs as needed Transfuse 2 units of FFP Platelet count 107 with 94% platelets functional Possible surgery today or in the a.m. Continue Protonix Attending/Attestation - Attestation I have personally seen and examined this patient.: Yes I have fully participated in the care of the patient.: Yes I have reviewed all pertinent clinical information: Yes Notes (Text): 06/19/16 17:04 I have seen and examined the patient. Medical records, lab studies, and imaging were reviewed by me and a management plan was formulated on multidisciplinary rounds with resident Dr. Meneses. I agree with their above documented assessment and plan. Patient's bleeding has not been controlled despite multiple interventions. Patient's family has decided on comfort care. Critical Care Time 35 minutes. Multi-disciplinary rounds were performed with house staff, nursing, speech therapy, respiratory therapy, pharmacy and nutrition with integrated input from the primary team/attending and other consulting services. The documented time is cumulative and includes review of patient data/exams/labs/chart review and examination of the patient on rounds and throughout the day; time is exclusive of any procedures or teaching time. 06/19/16 17:04
[2016-06-19] MEDS: Sodium Bicarbonate 8.4% 100 MEQ in Dextrose 5% In Water 900 ML IV SCH (09:29)
[2016-06-19] MEDS: Fluconazole IV 100mg/50 ml NS 50 ML IVPB SCH (09:33)
--- NOTE | 2016-06-19 09:51 | CP.PCM.PN ---
Subjective - Date & Time of Evaluation Date of Evaluation: 06/19/16 Time of Evaluation: 09:48 - Subjective Subjective: Patient intubated on sedation, unable to provide ROS. Objective - Vital Signs/Intake and Output Vital Signs (last 24 hours): Temp Pulse Resp BP Pulse Ox 98.5 F 86 20 120/75 100 06/19/16 05:06 06/19/16 07:36 06/19/16 07:36 06/19/16 07:36 06/19/16 07:36 Intake and Output: 06/19/16 06/19/16 06:59 18:59 Intake Total 3346.4 414.4 Output Total 300 Balance 3046.4 414.4 - Medications Medications: Current Medications Acetaminophen (Tylenol 325mg Tab) 650 mg PO Q6 PRN PRN Reason: Fever >100.4 F Dextrose (Dextrose 50% Inj) 0 ml IV STAT PRN; Protocol PRN Reason: Hyglycemia Protocol Last Admin: 06/19/16 06:20 Dose: 50 ml Fluconazole (Diflucan Iv 100 Mg/50 Ml Ns) 50 mls @ 100 mls/hr IVPB DAILY [facility] Last Admin: 06/19/16 09:33 Dose: 100 mls/hr Propofol (Diprivan) 100 mls @ 2.443 mls/hr IV .Q24H PRN; Protocol; 5 MCG/KG/MIN PRN Reason: TITRATE PER MD ORDER Last Titration: 06/17/16 08:30 Dose: 0 mcg/kg/min Vasopressin 40 units/ Sodium (Chloride) 40 mls @ 2.4 mls/hr IV .[id number] [facility] PRN Reason: 0.04 UNITS/MIN Last Admin: 06/19/16 00:01 Dose: Not Given Norepinephrine Bitartrate 16 (mg/ Sodium Chloride) 266 mls @ 3.99 mls/hr IV .Q24H PRN; Protocol; 4 MCG/MIN PRN Reason: TITRATE PER MD ORDER Last Titration: 06/19/16 06:28 Dose: 5.01 mcg/min Imipenem/Cilastatin Sodium 500 (mg/ Sodium Chloride) 100 mls @ 100 mls/hr IVPB Q8H [facility] Last Admin: 06/19/16 09:32 Dose: 100 mls/hr Sodium Bicarbonate 100 meq/ (Dextrose) 1,000 mls @ 50 mls/hr IV .Q20H [facility] Last Admin: 06/19/16 09:29 Dose: 50 mls/hr Latanoprost (Xalatan Opht) 0 ml OU HS [facility] Last Admin: 06/18/16 21:55 Dose: 2.5 ml Pantoprazole Sodium (Protonix Inj) 40 mg IVP DAILY [facility] Last Admin: 06/19/16 09:31 Dose: 40 mg - Labs Labs: 06/19/16 06:41 06/19/16 06:41 PT 19.4 SECONDS (9.7-12.2) H 06/19/16 06:41 INR 1.7 06/19/16 06:41 APTT 39 SECONDS (21-34) H D 06/19/16 06:41 - Constitutional Appears: Chronically Ill - Head Exam Head Exam: ATRAUMATIC - Eye Exam Eye Exam: Normal appearance Pupil Exam: NORMAL ACCOMODATION - ENT Exam ENT Exam: Mucous Membranes Dry - Neck Exam Neck Exam: Normal Inspection - Respiratory Exam Additional comments: On MV - Cardiovascular Exam Cardiovascular Exam: Tachycardia - GI/Abdominal Exam GI & Abdominal Exam: Diminished Bowel Sounds - Rectal Exam Rectal Exam: Deferred - Extremities Exam Extremities Exam: Normal Inspection - Back Exam Back Exam: NORMAL INSPECTION - Neurological Exam Neurological Exam: Alert, Altered Neuro motor strength exam: Left Upper Extremity: 2/1, Right Upper Extremity: 2/1 , Left Lower Extremity: 2/1, Right Lower Extremity: 2/1 - Psychiatric Exam Psychiatric exam: Flat Affect - Skin Skin Exam: Pallor Assessment and Plan - Assessment and Plan (Free Text) Assessment: Patient remains looking very ill on MV. last night patient had an episode of large bloody BM. HB dropped to 8.2 from 9.8. Family was aware and as per son Rodger, family discussed the current situation with Doctor Norm Choi. This morning around 9 am I got call from ICU saying that the son Rodger wanted to meet earlier, instead at 11 am as agreed yesterday. Rodger was talking to Doctor Choi on the phone when I arrived to ICU. The son stated that the family came to the understanding that patient's condition has been declining and that any further invasive procedure would only bring about more suffering for the patient. Rodger had a discussion with resident assistant cna this morning where he decided against any surgical intervention, including colectomy. We discussed further goals of care. Rodger's wanted to know what measures could be taken to allow his father natural with dignity. I explained that at this point his father was dependent on the MV and MV was prolonging his father' s life. To allow natural we would have to remove the ET tube. His concern was if his father would suffer during the process. I explained the steps needed to terminally remove patient from the MV, what would include Morphine and Ativan IV for control of symptoms. Nck agreed that it was what he would want for his father; with comfort and dignity. Further, we discussed the events after extubation. If the patient lives long enough after extubation, the hospice care would be appropriate for continuos control of symptoms. Rodger agreed. I assisted him with completing the POLST, DNR/DNI. This was shared with Doctor Norm Choi ICU resident and Yoselin ORR. Family was offered spiritual support from Pastoral care, which Rodger declined . We agreed that family takes time alone with patient as long as they need. The time of compassionate weaning will depend of family readiness but will take place some time today. Impression * This is a terminally ill patient at this point * New episode of large rectal bleeding last night * Family came to the conclusion that patient's life is being prolonged while the was imminent * Son Rodger requested natural to be allowed and removal from MV * Family does not want any further diagnostic testings, surgeries or blood transfusion Suggestion * Agree with terminal weaning today when family feels ready * Would stop all further diagnostic test, lab works, IV antibiotics * Agree with DNR/DNI
--- NOTE | 2016-06-19 10:18 | CP.PCM.PN ---
<ClaudeEileen - Last Filed: 06/19/16 10:15> Subjective - Date & Time of Evaluation Date of Evaluation: 06/19/16 Time of Evaluation: 08:30 - Subjective Subjective: General Surgery Dr. Crane Pt S&E @bedside. pt started bleeding again overnight. transfused 2:2:2. pt intubated and sedated. Family has decided against surgical intervention and leaning toward palliative/comfort care. Objective - Vital Signs/Intake and Output Vital Signs (last 24 hours): Temp Pulse Resp BP Pulse Ox 98.5 F 86 20 120/75 100 06/19/16 05:06 06/19/16 07:36 06/19/16 07:36 06/19/16 07:36 06/19/16 07:36 Intake and Output: 06/19/16 06/19/16 06:59 18:59 Intake Total 3346.4 414.4 Output Total 300 Balance 3046.4 414.4 - Medications Medications: Current Medications Acetaminophen (Tylenol 325mg Tab) 650 mg PO Q6 PRN PRN Reason: Fever >100.4 F Dextrose (Dextrose 50% Inj) 0 ml IV STAT PRN; Protocol PRN Reason: Hyglycemia Protocol Last Admin: 06/19/16 06:20 Dose: 50 ml Fluconazole (Diflucan Iv 100 Mg/50 Ml Ns) 50 mls @ 100 mls/hr IVPB DAILY [facility] Last Admin: 06/19/16 09:33 Dose: 100 mls/hr Propofol (Diprivan) 100 mls @ 2.443 mls/hr IV .Q24H PRN; Protocol; 5 MCG/KG/MIN PRN Reason: TITRATE PER MD ORDER Last Titration: 06/17/16 08:30 Dose: 0 mcg/kg/min Vasopressin 40 units/ Sodium (Chloride) 40 mls @ 2.4 mls/hr IV .[id number] [facility] PRN Reason: 0.04 UNITS/MIN Last Admin: 06/19/16 00:01 Dose: Not Given Norepinephrine Bitartrate 16 (mg/ Sodium Chloride) 266 mls @ 3.99 mls/hr IV .Q24H PRN; Protocol; 4 MCG/MIN PRN Reason: TITRATE PER MD ORDER Last Titration: 06/19/16 06:28 Dose: 5.01 mcg/min Imipenem/Cilastatin Sodium 500 (mg/ Sodium Chloride) 100 mls @ 100 mls/hr IVPB Q8H [facility] Last Admin: 06/19/16 09:32 Dose: 100 mls/hr Sodium Bicarbonate 100 meq/ (Dextrose) 1,000 mls @ 50 mls/hr IV .Q20H [facility] Last Admin: 06/19/16 09:29 Dose: 50 mls/hr Latanoprost (Xalatan Opht) 0 ml OU HS [facility] Last Admin: 06/18/16 21:55 Dose: 2.5 ml Pantoprazole Sodium (Protonix Inj) 40 mg IVP DAILY [facility] Last Admin: 06/19/16 09:31 Dose: 40 mg - Labs Labs: 06/19/16 06:41 06/19/16 06:41 PT 19.4 SECONDS (9.7-12.2) H 06/19/16 06:41 INR 1.7 06/19/16 06:41 APTT 39 SECONDS (21-34) H D 06/19/16 06:41 - Constitutional Appears: Toxic, No Acute Distress, Chronically Ill - Head Exam Head Exam: NORMAL INSPECTION - ENT Exam Additional comments: ETT in place NGT tube in place - Respiratory Exam Respiratory Exam: NORMAL BREATHING PATTERN (MV). absent: Accessory Muscle Use, Respiratory Distress - Cardiovascular Exam Cardiovascular Exam: REGULAR RHYTHM. absent: Bradycardia, Tachycardia - GI/Abdominal Exam GI & Abdominal Exam: Soft. 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 Rosa Maria Arce PGY1 <Erasmo Crane - Last Filed: 06/19/16 21:15> Objective - Vital Signs/Intake and Output Vital Signs (last 24 hours): Temp Pulse Resp BP Pulse Ox 98 F 109 H 17 108/61 100 06/19/16 20:00 06/19/16 20:09 06/19/16 20:09 06/19/16 19:54 06/19/16 20:09 Intake and Output: 04/13/17 04/14/17 18:59 06:59 Intake Total 1157.5 100 Output Total 190 15 Balance 967.5 85 - Medications Medications: Current Medications Acetaminophen (Tylenol 325mg Tab) 650 mg PO Q6 PRN PRN Reason: Fever >100.4 F Dextrose (Dextrose 50% Inj) 0 ml IV STAT PRN; Protocol PRN Reason: Hyglycemia Protocol Last Admin: 06/19/16 06:20 Dose: 50 ml Propofol (Diprivan) 100 mls @ 2.443 mls/hr IV .Q24H PRN; Protocol; 5 MCG/KG/MIN PRN Reason: TITRATE PER MD ORDER Last Titration: 06/17/16 08:30 Dose: 0 mcg/kg/min Vasopressin 40 units/ Sodium (Chloride) 40 mls @ 2.4 mls/hr IV .[id number] [facility] PRN Reason: 0.04 UNITS/MIN Last Admin: 06/19/16 14:38 Dose: Not Given Norepinephrine Bitartrate 16 (mg/ Sodium Chloride) 266 mls @ 3.99 mls/hr IV .Q24H PRN; Protocol; 4 MCG/MIN PRN Reason: TITRATE PER MD ORDER Last Titration: 06/19/16 18:24 Dose: 0 mcg/min Sodium Bicarbonate 100 meq/ (Dextrose) 1,000 mls @ 50 mls/hr IV .Q20H [facility] Last Admin: 06/19/16 09:29 Dose: 50 mls/hr Latanoprost (Xalatan Opht) 0 ml OU HS [facility] Last Admin: 06/18/16 21:55 Dose: 2.5 ml Pantoprazole Sodium (Protonix Inj) 40 mg IVP DAILY [facility] Last Admin: 06/19/16 09:31 Dose: 40 mg - Labs Labs: 06/19/16 06:41 06/19/16 06:41 PT 19.4 SECONDS (9.7-12.2) H 06/19/16 06:41 INR 1.7 06/19/16 06:41 APTT 39 SECONDS (21-34) H D 06/19/16 06:41 Attending/Attestation - Attestation I have personally seen and examined this patient.: Yes I have fully participated in the care of the patient.: Yes I have reviewed all pertinent clinical information, including history, physical exam and plan: Yes Notes (Text): 06/19/16 21:14 Pt was seen and examined at bedside on 06/19/16 Agree with above note and assessment.
--- NOTE | 2016-06-19 11:39 | RAD ---
HISTORY: vent COMPARISON: 06/18/2016 FINDINGS: LUNGS: Lines and tubes in stable position. Worsening diffuse confluent bilateral airspace opacities with worsening left pleural effusion. Biapical pleural thickening with upper lobe granulomatous changes. PLEURA: As above. CARDIOVASCULAR: Cardiomegaly. OSSEOUS STRUCTURES: No significant abnormalities. VISUALIZED UPPER ABDOMEN: Normal. OTHER FINDINGS: None. IMPRESSION: Lines and tubes in stable position. Worsening diffuse confluent bilateral airspace opacities with worsening left pleural effusion. Biapical pleural thickening with upper lobe granulomatous changes.
--- NOTE | 2016-06-19 12:15 | CP.PCM.PN ---
Subjective - Date & Time of Evaluation Date of Evaluation: 06/19/16 Time of Evaluation: 12:15 - Subjective Subjective: Events noted; recurrent bleed reuiring blood products again: At this point family is aware of poor prognosis and risks of surgery: They are deferring to palliative care and DNR status. Spoke with son in detail: and he concurs that palliative care is best reasonable option to reduce prolonged suffering. I agree with his opinion. 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 s/p FFP and platelet transfusion for refractory anemia and recurrent GI bleed. Off antiplatelets for now. * There is no futher cardiac work up at this time. We will following along to assist in fluid management and hemodynamics for chronic systolic CHF and moderate . Currently he is hemodynamically stable without volume overload, arrythmias. CADIAC: * Chronic compensated Mod LV systolic dysfunction, mild MR, Mod , distal septal and anterior akinesia due to chronic CAD s/p CABG in 2012. * Hx of known mild-mod LV dysfunction EF 35-40% due to ischemic cardiomyopathy * Euvolemic at present * BP and HR are apporiate * Lower extrem edema is improved: * CKD stage 3A chronic * No AFIB seen on any EKG or documented strips Will sign off call if question. Objective - Vital Signs/Intake and Output Vital Signs (last 24 hours): Temp Pulse Resp BP Pulse Ox 98.5 F 115 H 19 109/67 99 06/19/16 08:00 06/19/16 10:00 06/19/16 10:00 06/19/16 10:00 06/19/16 10:00 Intake and Output: 06/19/16 06/19/16 06:59 18:59 Intake Total 3346.4 846.6 Output Total 300 Balance 3046.4 846.6 - Medications Medications: Current Medications Acetaminophen (Tylenol 325mg Tab) 650 mg PO Q6 PRN PRN Reason: Fever >100.4 F Dextrose (Dextrose 50% Inj) 0 ml IV STAT PRN; Protocol PRN Reason: Hyglycemia Protocol Last Admin: 06/19/16 06:20 Dose: 50 ml Propofol (Diprivan) 100 mls @ 2.443 mls/hr IV .Q24H PRN; Protocol; 5 MCG/KG/MIN PRN Reason: TITRATE PER MD ORDER Last Titration: 06/17/16 08:30 Dose: 0 mcg/kg/min Vasopressin 40 units/ Sodium (Chloride) 40 mls @ 2.4 mls/hr IV .[id number] [facility] PRN Reason: 0.04 UNITS/MIN Last Admin: 06/19/16 00:01 Dose: Not Given Norepinephrine Bitartrate 16 (mg/ Sodium Chloride) 266 mls @ 3.99 mls/hr IV .Q24H PRN; Protocol; 4 MCG/MIN PRN Reason: TITRATE PER MD ORDER Last Titration: 06/19/16 06:28 Dose: 5.01 mcg/min Sodium Bicarbonate 100 meq/ (Dextrose) 1,000 mls @ 50 mls/hr IV .Q20H [facility] Last Admin: 06/19/16 09:29 Dose: 50 mls/hr Latanoprost (Xalatan Opht) 0 ml OU HS [facility] Last Admin: 06/18/16 21:55 Dose: 2.5 ml Pantoprazole Sodium (Protonix Inj) 40 mg IVP DAILY [facility] Last Admin: 06/19/16 09:31 Dose: 40 mg - Labs Labs: 06/19/16 06:41 06/19/16 06:41 PT 19.4 SECONDS (9.7-12.2) H 06/19/16 06:41 INR 1.7 06/19/16 06:41 APTT 39 SECONDS (21-34) H D 06/19/16 06:41
--- NOTE | 2016-06-19 18:51 | CP.PCM.PN ---
Subjective - Date & Time of Evaluation Date of Evaluation: 06/19/16 Time of Evaluation: 09:20 - Subjective Subjective: Clinically same Objective - Vital Signs/Intake and Output Vital Signs (last 24 hours): Temp Pulse Resp BP Pulse Ox 97.8 F 112 H 22 119/69 100 06/19/16 16:00 06/19/16 18:00 06/19/16 18:00 06/19/16 18:00 06/19/16 18:00 Intake and Output: 06/19/16 06/19/16 06:59 18:59 Intake Total 3346.4 1157.5 Output Total 300 Balance 3046.4 1157.5 - Medications Medications: Current Medications Acetaminophen (Tylenol 325mg Tab) 650 mg PO Q6 PRN PRN Reason: Fever >100.4 F Dextrose (Dextrose 50% Inj) 0 ml IV STAT PRN; Protocol PRN Reason: Hyglycemia Protocol Last Admin: 06/19/16 06:20 Dose: 50 ml Propofol (Diprivan) 100 mls @ 2.443 mls/hr IV .Q24H PRN; Protocol; 5 MCG/KG/MIN PRN Reason: TITRATE PER MD ORDER Last Titration: 06/17/16 08:30 Dose: 0 mcg/kg/min Vasopressin 40 units/ Sodium (Chloride) 40 mls @ 2.4 mls/hr IV .[id number] [facility] PRN Reason: 0.04 UNITS/MIN Last Admin: 06/19/16 14:38 Dose: Not Given Norepinephrine Bitartrate 16 (mg/ Sodium Chloride) 266 mls @ 3.99 mls/hr IV .Q24H PRN; Protocol; 4 MCG/MIN PRN Reason: TITRATE PER MD ORDER Last Titration: 06/19/16 18:24 Dose: 0 mcg/min Sodium Bicarbonate 100 meq/ (Dextrose) 1,000 mls @ 50 mls/hr IV .Q20H [facility] Last Admin: 06/19/16 09:29 Dose: 50 mls/hr Latanoprost (Xalatan Opht) 0 ml OU HS [facility] Last Admin: 06/18/16 21:55 Dose: 2.5 ml Pantoprazole Sodium (Protonix Inj) 40 mg IVP DAILY [facility] Last Admin: 06/19/16 09:31 Dose: 40 mg - Labs Labs: 06/19/16 06:41 04/13/17 06:41 PT 19.4 SECONDS (9.7-12.2) H 06/19/16 06:41 INR 1.7 06/19/16 06:41 APTT 39 SECONDS (21-34) H D 06/19/16 06:41 Assessment and Plan (1) Acute renal failure Status: Acute (2) Anemia Status: Acute (3) BPH (benign prostatic hyperplasia) Status: Acute (4) Bilateral edema of lower extremity Status: Acute (5) DVT prophylaxis Status: Acute (6) Dry gangrene Status: Acute (7) Gastrointestinal hemorrhage Status: Acute (8) Hypochromic microcytic anemia Status: Acute (9) Hypovolemic shock Status: Acute (10) Memory difficulty Status: Acute (11) Paresthesia of both lower extremities Status: Acute (12) Pneumonia Status: Acute (13) CHF (congestive heart failure) Status: Chronic (14) Diabetes mellitus Status: Chronic - Assessment and Plan (Free Text) Plan: f/u with GI f/u with ID f/u with dispatcher automobile rental f/u with General surgeon Patient had large bloody bowel movement, patient was given 2 units of PRBC, FFP and platelet protonix Novolog
[2016-06-19] MEDS: Latanoprost 2.5 ml Opht Soln OU SCH (21:43)
[2016-06-20] MEDS: Sodium Bicarbonate 8.4% 100 MEQ in Dextrose 5% In Water 900 ML IV SCH (05:56)
--- NOTE | 2016-06-20 08:25 | CP.CCUPN ---
<Leobardo Meneses - Last Filed: 06/20/16 11:06> CCU Subjective - Physician Review Subjective (Free Text): 06/20/16 8:05 Pt seen and examined at bedside. He remains intubated. Pt was for terminal extubation yesterday, but family elected to delay removal until today. No labs were drawn and antibiotics were stopped in accordance with the family's wishes. Critical Care Time Spent (in minutes): 35 CCU Objective - Vital Signs / Intake & Output Vital Signs (Last 4 hours): Vital Signs Pulse Resp BP Pulse Ox 06/20/16 07:00 94 H 16 110/67 100 06/20/16 06:10 89 15 100 06/20/16 06:00 91 H 15 102/63 100 06/20/16 05:00 96 H 16 109/67 100 Intake and Output (Last 8hrs): Intake & Output 06/19/16 06/20/16 06/20/16 22:59 06:59 14:59 Intake Total 405.9 400 50 Output Total 115 300 Balance 290.9 100 50 Weight 184 lb Intake: Intake, IV Amount 405.9 400 50 Right Distal Port PICC 400 400 50 Right Medial Port PICC 5.9 Output: Gastric Amount 50 100 Stomach 50 100 Urine 65 200 Urethral (Cardenas) 65 200 - Physical Exam Head: Positive for: Atraumatic, Normocephalic. Negative for: Swelling Pupils: Positive for: Sluggish Extroacular Muscles: Positive for: EOMI Conjunctiva: Positive for: Normal Mouth: Positive for: Dry Neck: Positive for: Normal Range of Motion Respiratory/Chest: Positive for: Decreased Breath Sounds, Rhonchi (scattered throughout lung rey). Negative for: Wheezes Cardiovascular: Positive for: Normal S1, S2 Abdomen: Positive for: Normal Bowel Sounds, Other (anasarca). Negative for: Peritoneal Signs Back: Positive for: Normal Inspection Upper Extremity: Positive for: Edema, Swelling Lower Extremity: Positive for: Edema (trace pedal edema) Neurological: Positive for: Other (AMS) Skin: Positive for: Warm, Dry Psychiatric: Positive for: Alert, Lethargic. Negative for: Oriented x 3 - Medications Active Medications: Active Medications Generic Name Dose Route Start Last Admin Trade Name Freq PRN Reason Stop Dose Admin Acetaminophen 650 mg 06/18/16 15:15 Tylenol 325mg Tab PO Q6 PRN Fever >100.4 F Dextrose 0 ml 06/19/16 06:14 06/19/16 06:20 Dextrose 50% Inj IV 50 ml STAT PRN Administration Hyglycemia Protocol Protocol Propofol 100 mls @ 2.443 mls/hr 06/15/16 10:18 06/17/16 08:30 Diprivan IV 0 mcg/kg/min .Q24H PRN Titration TITRATE PER MD ORDER Protocol 5 MCG/KG/MIN Vasopressin 40 units/ Sodium 40 mls @ 2.4 mls/hr 06/15/16 10:30 06/20/16 07:56 Chloride IV Not Given .[id number] LASHA 0.04 UNITS/MIN Norepinephrine Bitartrate 16 266 mls @ 3.99 mls/hr 06/15/16 10:25 06/19/16 18: 24 mg/ Sodium Chloride IV 0 mcg/min .Q24H PRN Titration TITRATE PER MD ORDER Protocol 4 MCG/MIN Sodium Bicarbonate 100 meq/ 1,000 mls @ 50 mls/hr 06/19/16 09:00 06/20/16 05:56 Dextrose IV 50 mls/hr .Q20H LASHA Administration Latanoprost 0 ml 05/22/16 22:00 06/19/16 21:43 Xalatan Opht OU 2.5 ml HS LASHA Administration Pantoprazole Sodium 40 mg 06/11/16 10:00 06/19/16 09:31 Protonix Inj IVP 40 mg DAILY LASHA Administration - Patient Studies Lab Studies: Lab Studies 06/20/16 06/20/16 06/19/16 Range/Units 06:05 00:15 17:52 POC Glucose (mg/dL) 148 H 155 H 128 H (65-110) mg/dL 06/19/16 Range/Units 11:46 POC Glucose (mg/dL) 85 (65-110) mg/dL Laboratory Results - last 24 hr 06/19/16 06/19/16 06/20/16 11:46 17:52 00:15 POC Glucose (mg/dL) 85 128 H 155 H 06/20/16 06:05 POC Glucose (mg/dL) 148 H Fingerstick Blood Sugar Results: 148 Review of Systems - Review of Systems Systems not reviewed;Unavailable: Altered Mental Status Critical Care Progress Note - Nutrition Nutrition: Nutrition Category Date Time Status NPO Diet [DIET] Diets 06/14/16 Dinner Active Assessment/Plan - Assessment and Plan (Free Text) Assessment: 85 M with a past medical history of anemia, [place] complicated by CAD s/p 3 vessel CABG, moderate aortic stenosis, hypertension, hyperlipidemia presented with hypotension, weakness, and blood in the stool 05/22. Multiple episodes of GI bleed. CTA showed active colonic bleeding. SMA embolization performed by IR. Code status has been changed to reflect family's wishes. Pt has been made DNR/DNI. Terminal extubation at family's chosen time. Plan: Palliative: Patient's family has changed code status to DNR/DNI. Family does not want any further diagnostic testings, surgeries, IV antibiotics, or blood transfusion. Terminal extubation scheduled for time of family choosing today. (see palliative care note) Neuro: Neurochecks q 6 Intubated Propofol for sedation Optho: Latanoprost OU HS LASHA Cardio: Levophed: 5 mcg/min Vasopressin: 0.04 u/min 06/14 Code during Bleeding scan. Afib w. RVR. Vtach. ACLS, Shocked once, epi x 2. Cardiology, Dr. Jade, has signed off Pulm: 06/19: Terminally extubated per family's wishes Vent settings: Rate 14, TV 500, Peep: 5, FIO2: 40%, O2: 99% ABG: ph 7.28, pO2: 130, HCO3: 14.4 - Acidosis worsening - Continue bicarb drip CXR (06/19): Worsening diffuse confluent b/l airspace opacities in both lungs, most prominent in right perihilar and left lung base. Biapical pleural thickening with upper lobe granulomatous changes. Worsening left pleural effusion (see full report). No investigative labs/xrays due to famliy's wishes Endo: Diabetes Sliding scale - Novolog Accucheck q6 Maintain Euglycemia GI: 06/03 EGD: 2 cm hiatal hernia present. one large non-bleeding ulcer with clean ulcer base Class III found at duodenal bulb spanning duodenal sweep. improved compared to prior examination without any stigmata of recent bleeding. 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 Post-op diagnosis: marah esophagitis, duodenal ulcer, gastritis, hiatal hernia. 06/04 Colonoscopy: no active bleed, hemorrhoids, ulcerated mucosa at anastomosis site 06/05 GI Bleeding scan: findings suggestive of active GI bleeding likely at large bowel splenic flexure that extends to the descending colon. 06/06 Colonoscopy - per GI - 15 cc of epinephrine 0.1 mg/ml injections at ulcerated ileocolonic anastomotic site along with electro cautery for hemostasis. 06/14: Vomited derek blood twice. Large passage of blood rectally x 2. During bleeding scan coded, went in to Vtach. Vomiting dark blood during intubation. Required 4 units of blood, 2 FFP, 1 unit platelets. Angio showed active bleed in colon in branches of SMA supplying region of surgical kevan, embolization performed by IR. 06/18: Large passage of blood rectally. Pt transfused 2 units each of PRBCs/FFP/ platelets. Surgery, Dr. Crane: OR for colectomy if pt bleeds again GI: Given O blood group, consider DDAVP infusion if pt rebleeds; No further endoscopies planned Elevated LFTs - secondary to hypotension/shock liver - Bolus of 1L NS Start Tube feedings -Isosource 1.5 @10ml/hr, goal:50ml/hr : Decreasing urine output Monitor I/Os Renal: Elevated BUN/Cr - secondary to hypotension/shock Monitor I/Os Daily CMP Heme: Hgb 10.4, s/p 2 prbc yesterday Platelets 94, s/p 3 units of platelets transfused yesterday Daily CBC Due to pts worsening clinical status, family has elected to stop daily labs MSK: PT/OT eval deferred due to low Hgb ID: Due to pts worsening clinical status, family has elected to stop IV antibiotics WBC: 13.4 today, elevated but decreased from yesterday - bands decreasing - recent elevation, possible aspiration PNA from intubation aspirition - Blood cx (06/16): Enterobacter cloacae - sensitive to Primaxin - Urine Cx (06/16): Proteus mirabilis MRSA positive nares Prophylaxis: DVT: SCDs. VTE contraindicated bc of GI bleed GI: PPI IV daily <Osvaldo Silva - Last Filed: 06/20/16 16:17> CCU Objective - Vital Signs / Intake & Output Vital Signs (Last 4 hours): Vital Signs Temp Pulse Resp BP Pulse Ox 06/20/16 16:00 97.5 F L 06/20/16 13:32 143 H 20 99 06/20/16 13:00 116 H 22 127/83 99 Intake and Output (Last 8hrs): Intake & Output 06/20/16 06/20/16 06/20/16 06:59 14:59 22:59 Intake Total 400 402 Output Total 300 205 Balance 100 197 Weight 184 lb Intake: Intake, IV Amount 400 402 Right Proximal Port 2 Forearm Right Distal Port PICC 400 400 Oral 0 Output: Gastric Amount 100 90 Stomach 100 90 Urine 200 115 Urethral (Cardenas) 200 115 Other: # Bowel Movements 0 - Medications Active Medications: Active Medications Generic Name Dose Route Start Last Admin Trade Name Freq PRN Reason Stop Dose Admin Acetaminophen 650 mg 06/18/16 15:15 Tylenol 325mg Tab PO Q6 PRN Fever >100.4 F Dextrose 0 ml 06/19/16 06:14 06/19/16 06:20 Dextrose 50% Inj IV 50 ml STAT PRN Administration Hyglycemia Protocol Protocol Propofol 100 mls @ 2.443 mls/hr 06/15/16 10:18 06/17/16 08:30 Diprivan IV 0 mcg/kg/min .Q24H PRN Titration TITRATE PER MD ORDER Protocol 5 MCG/KG/MIN Vasopressin 40 units/ Sodium 40 mls @ 2.4 mls/hr 06/15/16 10:30 06/20/16 07:56 Chloride IV Not Given .[id number] LASHA 0.04 UNITS/MIN Norepinephrine Bitartrate 16 266 mls @ 3.99 mls/hr 06/15/16 10:25 06/19/16 18: 24 mg/ Sodium Chloride IV 0 mcg/min .Q24H PRN Titration TITRATE PER MD ORDER Protocol 4 MCG/MIN Sodium Bicarbonate 100 meq/ 1,000 mls @ 50 mls/hr 06/19/16 09:00 06/20/16 05:56 Dextrose IV 50 mls/hr .Q20H LASHA Administration Morphine Sulfate 250 mg/ 250 mls @ 1 mls/hr 06/20/16 13:21 06/20/16 14:05 Sodium Chloride IV 06/21/16 13:20 2 mls/hr .Q24H ONE Administration Protocol 1 MG/HR Latanoprost 0 ml 05/22/16 22:00 06/19/16 21:43 Xalatan Opht OU 2.5 ml HS LASHA Administration Pantoprazole Sodium 40 mg 06/11/16 10:00 06/20/16 10:52 Protonix Inj IVP 40 mg DAILY LASHA Administration - Patient Studies Lab Studies: Lab Studies 06/20/16 06/20/16 06/20/16 Range/Units 12:16 06:05 00:15 APTT (22-34) sec Factor VIII Activity (50-180) % vWF Multimeric Antigen (()) vWF Ristocetin Cofactr (42-200) % POC Glucose (mg/dL) 169 H 148 H 155 H (65-110) mg/dL 06/19/16 06/15/16 Range/Units 17:52 18:09 APTT 49 H (22-34) sec Factor VIII Activity 194 H (50-180) % vWF Multimeric Antigen see note (()) vWF Ristocetin Cofactr 379 H (42-200) % POC Glucose (mg/dL) 128 H (65-110) mg/dL Laboratory Results - last 24 hr 06/15/16 06/19/16 06/20/16 18:09 17:52 00:15 APTT 49 H Factor VIII Activity 194 H vWF Multimeric Antigen see note vWF Ristocetin Cofactr 379 H POC Glucose (mg/dL) 128 H 155 H 06/20/16 06/20/16 06:05 12:16 APTT Factor VIII Activity vWF Multimeric Antigen vWF Ristocetin Cofactr POC Glucose (mg/dL) 148 H 169 H Critical Care Progress Note - Nutrition Nutrition: Nutrition Category Date Time Status NPO Diet [DIET] Diets 06/14/16 Dinner Active Assessment/Plan (1) Gastrointestinal hemorrhage Current Visit: Yes Status: Acute Comment: Transfuse packed RBCs as needed Transfuse 2 units of FFP Platelet count 107 with 94% platelets functional Possible surgery today or in the a.m. Continue Protonix Attending/Attestation - Attestation I have personally seen and examined this patient.: Yes I have fully participated in the care of the patient.: Yes I have reviewed all pertinent clinical information: Yes Notes (Text): 06/20/16 16:16 I have seen and examined the patient. Medical records, lab studies, and imaging were reviewed by me and a management plan was formulated on multidisciplinary rounds with resident Dr. Meneses. I agree with their above documented assessment and plan. Patient was terminally extubated and made comfort care as per family wishes. Critical Care Time 35 minutes. Multi-disciplinary rounds were performed with house staff, nursing, speech therapy, respiratory therapy, pharmacy and nutrition with integrated input from the primary team/attending and other consulting services. The documented time is cumulative and includes review of patient data/exams/labs/chart review and examination of the patient on rounds and throughout the day; time is exclusive of any procedures or teaching time.
--- NOTE | 2016-06-20 13:32 | CP.PCM.PN ---
Subjective - Date & Time of Evaluation Date of Evaluation: 06/20/16 Time of Evaluation: 11:00 - Subjective Subjective: clinically same Objective - Vital Signs/Intake and Output Vital Signs (last 24 hours): Temp Pulse Resp BP Pulse Ox 98.9 F 91 H 15 115/68 100 06/20/16 12:00 06/20/16 12:00 06/20/16 12:00 06/20/16 12:00 06/20/16 12:00 Intake and Output: 06/20/16 06/20/16 06:59 18:59 Intake Total 600 300 Output Total 315 160 Balance 285 140 - Medications Medications: Current Medications Acetaminophen (Tylenol 325mg Tab) 650 mg PO Q6 PRN PRN Reason: Fever >100.4 F Dextrose (Dextrose 50% Inj) 0 ml IV STAT PRN; Protocol PRN Reason: Hyglycemia Protocol Last Admin: 06/19/16 06:20 Dose: 50 ml Propofol (Diprivan) 100 mls @ 2.443 mls/hr IV .Q24H PRN; Protocol; 5 MCG/KG/MIN PRN Reason: TITRATE PER MD ORDER Last Titration: 06/17/16 08:30 Dose: 0 mcg/kg/min Vasopressin 40 units/ Sodium (Chloride) 40 mls @ 2.4 mls/hr IV .[id number] LASHA PRN Reason: 0.04 UNITS/MIN Last Admin: 06/20/16 07:56 Dose: Not Given Norepinephrine Bitartrate 16 (mg/ Sodium Chloride) 266 mls @ 3.99 mls/hr IV .Q24H PRN; Protocol; 4 MCG/MIN PRN Reason: TITRATE PER MD ORDER Last Titration: 06/19/16 18:24 Dose: 0 mcg/min Sodium Bicarbonate 100 meq/ (Dextrose) 1,000 mls @ 50 mls/hr IV .Q20H LASHA Last Admin: 06/20/16 05:56 Dose: 50 mls/hr Morphine Sulfate 250 mg/ (Sodium Chloride) 250 mls @ 1 mls/hr IV .Q24H ONE; 1 MG/HR PRN Reason: Protocol Stop: 06/21/16 13:20 Latanoprost (Xalatan Opht) 0 ml OU HS LASHA Last Admin: 06/19/16 21:43 Dose: 2.5 ml Pantoprazole Sodium (Protonix Inj) 40 mg IVP DAILY LASHA Last Admin: 06/20/16 10:52 Dose: 40 mg - Labs Labs: 06/19/16 06:41 06/19/16 06:41 PT 19.4 SECONDS (9.7-12.2) H 06/19/16 06:41 INR 1.7 06/19/16 06:41 APTT 39 SECONDS (21-34) H D 06/19/16 06:41 - Constitutional Appears: Well - Head Exam Head Exam: ATRAUMATIC, NORMAL INSPECTION, NORMOCEPHALIC - Eye Exam Eye Exam: EOMI, Normal appearance, PERRL Pupil Exam: NORMAL ACCOMODATION, PERRL - ENT Exam ENT Exam: Mucous Membranes Moist, Normal Exam - Neck Exam Neck Exam: Full ROM, Normal Inspection. absent: Lymphadenopathy - Respiratory Exam Respiratory Exam: Decreased Breath Sounds - Cardiovascular Exam Cardiovascular Exam: +S1, +S2 - GI/Abdominal Exam GI & Abdominal Exam: Soft, Diminished Bowel Sounds - Rectal Exam Rectal Exam: Deferred Assessment and Plan (1) Acute renal failure Status: Acute (2) Anemia Status: Acute (3) BPH (benign prostatic hyperplasia) Status: Acute (4) Bilateral edema of lower extremity Status: Acute (5) DVT prophylaxis Status: Acute (6) Dry gangrene Status: Acute (7) Gastrointestinal hemorrhage Status: Acute (8) Hypochromic microcytic anemia Status: Acute (9) Hypovolemic shock Status: Acute (10) Memory difficulty Status: Acute (11) Paresthesia of both lower extremities Status: Acute (12) Pneumonia Status: Acute (13) CHF (congestive heart failure) Status: Chronic (14) Diabetes mellitus Status: Chronic - Assessment and Plan (Free Text) Plan: f/u with GI f/u with ID f/u with polymer engineer f/u with General surgeon Patient was for terminal extubation protonix Novolog
[2016-06-20 16:54] LABS: VON WILLERBRAND FACTOR AG 381 % (50-217)
[2016-06-20 21:00] VITALS: TEMP 97.2
[2016-06-20 21:03] VITALS: RESP 5
[2016-06-20 22:35] VITALS: BP 83/46; PULSE 123; O2SAT 92
== END 2016-06-20 21:53 | DRG 853 ==
LOC: C.ER 22:47 → C.9I 05-22 00:47 → C.5T 06-01 07:45 → C.9I 06-02 14:20 → C.3T 06-04 21:48 → C.9I 06-06 01:49
PROVIDERS: ADMIT Internal Medicine Nephrology; ATTEND Internal Medicine Nephrology
PROC: 30233N1 Transfusion of Nonautologous Red Blood Cells into Peripheral Vein, Percutaneous Approach (ICD-10-PCS; principal; 2016-05-22)
PROC: 0DB68ZX Excision of Stomach, Via Natural or Artificial Opening Endoscopic, Diagnostic (ICD-10-PCS; 2016-05-23)
PROC: 5A1945Z Respiratory Ventilation, 24-96 Consecutive Hours (ICD-10-PCS; 2016-06-14)
PROC: 30253K1 (ICD-10-PCS; 2016-06-14)
PROC: 30253R1 (ICD-10-PCS; 2016-06-14)
PROC: 30233N1 Transfusion of Nonautologous Red Blood Cells into Peripheral Vein, Percutaneous Approach (ICD-10-PCS; 2016-06-14)
PROC: 0BH17EZ Insertion of Endotracheal Airway into Trachea, Via Natural or Artificial Opening (ICD-10-PCS; 2016-06-14)
PROC: 5A1955Z Respiratory Ventilation, Greater than 96 Consecutive Hours (ICD-10-PCS; 2016-06-14)
PROC: 5A12012 Performance of Cardiac Output, Single, Manual (ICD-10-PCS; 2016-06-14)
PROC: 06L Lower Veins, Occlusion (ICD-10-PCS; 2016-06-18)
PROC: 3E0G76Z Introduction of Nutritional Substance into Upper GI, Via Natural or Artificial Opening (ICD-10-PCS; 2016-06-18)
DX: R57.1 Hypovolemic shock (principal); J96.00 Acute respiratory failure, unspecified whether with hypoxia or hypercapnia; J69.0 Pneumonitis due to inhalation of food and vomit; K72.00 Acute and subacute hepatic failure without coma; I47.2 Ventricular tachycardia; L89.152 Pressure ulcer of sacral region, stage 2; K63.3 Ulcer of intestine; K92.2 Gastrointestinal hemorrhage, unspecified; I13.0 Hypertensive heart and chronic kidney disease with heart failure and stage 1 through stage 4 chronic kidney disease, or unspecified chronic kidney disease; K26.9 Duodenal ulcer, unspecified as acute or chronic, without hemorrhage or perforation; B37.81 Candidal esophagitis; I50.22 Chronic systolic (congestive) heart failure; D62 Acute posthemorrhagic anemia; K91.89 Other postprocedural complications and disorders of digestive system; N39.0 Urinary tract infection, site not specified; N18.3 Chronic kidney disease, stage 3 (moderate); E11.22 Type 2 diabetes mellitus with diabetic chronic kidney disease; E11.51 Type 2 diabetes mellitus with diabetic peripheral angiopathy without gangrene; E86.1 Hypovolemia; K20.9 Esophagitis, unspecified; I25.10 Atherosclerotic heart disease of native coronary artery without angina pectoris; N18.9 Chronic kidney disease, unspecified; I35.0 Nonrheumatic aortic (valve) stenosis; I25.5 Ischemic cardiomyopathy; D50.0 Iron deficiency anemia secondary to blood loss (chronic); K25.9 Gastric ulcer, unspecified as acute or chronic, without hemorrhage or perforation; K44.9 Diaphragmatic hernia without obstruction or gangrene; N40.0 Benign prostatic hyperplasia without lower urinary tract symptoms; E78.00 Pure hypercholesterolemia, unspecified; H40.9 Unspecified glaucoma; Z66 Do not resuscitate; Z95.1 Presence of aortocoronary bypass graft; Z87.01 Personal history of pneumonia (recurrent); Z79.84 Long term (current) use of oral hypoglycemic drugs; I25.2 Old myocardial infarction; Z87.891 Personal history of nicotine dependence